=== PATIENT | male | born 1945 | race Caucasian/White ===

== ENCOUNTER 2016-07-27 14:19 | Emergency (ER) | payer MEDICARE, MEDICAID ==
[~2016-07-27 14:19] MED LIST: ASPI325T PO; ASPI81TA3 OR; ATEN25TA PO; ATEN50TA2 OR; CRES40TA OR; CRES40TA PO; INSUDET SC; INSUH10VL SC; INSUHUMDS SC; INSULADS SC; INSULANT SC; INSULIN 70/30 INJ; KEFL500C7 PO; LEVO750T33 PO; LYRI150C OR; LYRI150C PO; NTG SL; OXYC10TA12 OR; PERC2.5T PO; PERCOCET FT; PLAV75TA2 OR; PLAV75TA38 PO; PRIL40CA PO; VARE1TA OR
[2016-07-27 15:47] LABS: BASO # 0.1 K/mm3 (0.0-0.2); BASO % 1.1 % (0.0-1.0); EOS # 0.5 K/mm3 (0.0-0.50); EOS % 5.4 % (0.0-3.0); LARGE UNSTAINED CELL # 0.3 K/mm3 (0.0-0.4); LARGE UNSTAINED CELL % 3.1 % (0.0-4.0); LYMPH # 0.8 K/mm3 (1.5-4.5); LYMPH % 6.7 % (24.0-44.0); MEAN CORPUSCULAR HEMOGLOBIN 28.7 pg (27.0-33.0); MEAN CORPUSCULAR HGB CONC 32.6 g/dl (32.0-36.5); MONO # 0.8 K/mm3 (0.0-0.8); NEUTROPHILS # 6.3 K/mm3 (1.8-7.7); NEUTROPHILS % 74.7 % (36.0-66.0); PLATELET COUNT, AUTOMATED 185 k/mm3 (150-450); RED CELL DISTRIBUTION WIDTH 13.2 % (11.5-14.5); WHITE BLOOD COUNT 8.5 K/mm3 (4.0-10.0)
--- NOTE | 2016-07-27 15:53 | REP ---
Clinical: Acute shortness of breath . Comparison: 04/14/2016 . Findings: The mediastinum and cardiac silhouette are stable. Prior sternotomy and pacemaker are again appreciated. The lung ramos demonstrate stable changes without acute consolidation, effusion, or pneumothorax. Skeletal structures are intact. Impression: No acute cardiopulmonary process appreciated. Signed by Erwin Rodriguez MD 07/27/2016 03:45 P
[2016-07-27] MEDS ORDERED: OSELTAMIVIR PHOSPHATE 75 MG CAP (TAMIFLU) As Ordered ONE (16:34)
[2016-07-27] MEDS ORDERED: IPRATROPIUM 0.5MG/ALBUTEROL 2.5MG INH SOL UD 3ML (DUONEB)(J7620) As Ordered ONE (16:36)
[2016-07-27 16:53] LABS: ANION GAP 6 MEQ/L (8-16); BLOOD UREA NITROGEN 45 MG/DL (7-18); CALCIUM LEVEL 8.4 MG/DL (8.8-10.2); CARBON DIOXIDE LEVEL 31 MEQ/L (21-32); CHLORIDE LEVEL 97 MEQ/L (98-107); CREATININE FOR GFR 2.18 MG/DL (0.70-1.30); GLUCOSE, FASTING 352 MG/DL (83-110); POTASSIUM SERUM 4.9 MEQ/L (3.5-5.1); SODIUM LEVEL 134 MEQ/L (136-145)
[2016-07-27] MEDS ORDERED: predniSONE 20 MG TAB As Ordered ONE (18:46)
--- NOTE | 2016-07-27 19:29 | EDDOCDS ---
Physician Documentation [facility] Name: Aaron Drake Age: 70 yrs Sex: Male : 1945 Arrival Date: 07/27/2016 Time: 14:19 Bed 5 Private MD: Iliana Barragan Disposition: 07/27/16 19:03 Discharged to Home/Self Care. Impression: Influenza due to identified novel influenza A virus. - Condition is Stable. - Discharge Instructions: Influenza Adult, How to Use a Nebulizer. - Prescriptions for Tamiflu 75 mg Oral Capsule - take 1 capsule by ORAL route every 12 hours for 5 days; 10 capsule. Albuterol Sulfate 2.5 mg /3 mL (0.083 %) Inhalation Solution for Nebulization - inhale 1 unit by NEBULIZATION route 4 times per day As needed; 1 box. Home Nebulizer - Dx: (wheezing/influenza). Duration: 3 months). Prednisone 20 mg Oral Tablet - take 2 tablet by ORAL route once daily for 5 days; 10 tablet. - Medication Reconciliation, Local Pharmacy Hours form. - Follow up: Emergency Department; When: Tomorrow; Reason: Recheck today's complaints. - Problem is new. - Symptoms have improved. Historical: - Allergies: turkey; - Home Meds: 1. Zithromax 250 mg Oral tab 1 tab once daily 2. aspirin 325 mg Oral tab 1 tab once daily 3. furosemide 40 mg Oral tab 1 tab once daily 4. Lyrica 150mg Oral 2 times per day 5. metoprolol succinate 50 mg Tb24 1 tab once daily 6. Percocet 5-325 mg Oral tab 2 tabs every 4-6 hours 7. Plavix 75 mg Oral tab 1 tab once daily 8. potassium chloride 10 mEq Oral cpER 1 cap once daily - PMHx: Diabetes - IDDM: uncontrolled; Hypercholesterolemia; [place]; - PSHx: Stents, Coronary; pacemaker/defibrillator insertion; fem/pop bypass bilaterally; CABG; - Social history: Smoking status: Patient states former smoker of tobacco. No barriers to communication noted, The patient speaks fluent Yi, Speaks appropriately for age. - Family history: Not pertinent. - : The pt / caregiver states he / she is on anticoagulants: Plavix. Home medication list is obtained from the patient. - Exposure Risk Screening:: None identified. Vital Signs: 01/14 14:20 BP 169 / 73; Pulse 82; Resp 18 S; Temp 97.7(O); Pulse Ox 94% on R/A; Weight 90.72 kg / dd6 200 lbs (R); Height 5 ft. 6 in. (167.64 cm) (R); 15:19 BP 175 / 77 (auto/); ck1 15:20 Pulse 82 MON; Pulse Ox 94% ; ck1 17:49 BP 126 / 77 (auto/); ck1 17:49 BP 126 / 77 (auto/); ck1 17:50 Pulse 94 MON; Pulse Ox 96% ; ck1 17:50 Pulse 94 MON; Pulse Ox 96% ; ck1 18:17 BP 140 / 65; Pulse 90; Resp 18; Temp 98.6(O); Pulse Ox 94% on 2 lpm NC; Pain 7/10; ck1 19:26 BP 140 / 63; Pulse 94; Resp 18; Temp 99.1(TE); Pulse Ox 94% on R/A; Pain 0/10; nn1 14:20 Body Mass Index 32.28 (90.72 kg, 167.64 cm) dd6 MDM: 15:02 -Blood Culture (Adults Only), peripheral from different site, or from device/port/PICC sd1 etc. if present ordered. 15:02 [employer] Maker/Pulse Ox/q 15 min VS ordered. sd1 15:02 IV Saline Lock ordered. sd1 15:02 Oxygen at 4L/Min NC or Home dosage ordered. sd1 15:02 Rhythm Strip to chart ordered. sd1 15:02 B-Type Natiuretic Peptide Ordered. EDMS 15:02 Basic Metabolic Profile Ordered. EDMS 15:02 CBC with Diff Ordered. EDMS 15:02 Cardiac Injury Profile Ordered. EDMS 15:02 Troponin Ordered. EDMS 15:02 -Blood Culture Ordered. EDMS 15:03 Chest, 1 View Ordered. EDMS 15:03 ECG WITH READING ER PHYS+CARDIAG ordered. EDMS 15:08 NS 0.9% 1000 ml IV at 150 mL/hr continuous ordered. sd1 15:08 -Blood Culture (Adults Only), peripheral from different site, or from device/port/PICC deg etc. if present complete. 15:09 Obtain sample by nasopharyngeal swab ordered. sd1 15:09 BLOOD CULTURES Ordered. EDMS 15:09 -Influenza A&B Rapid Antigen - Nose Ordered. EDMS 15:46 Financial registration complete. [email or web address] 15:46 [facility] Payment Agreement was scanned into [employer] and attached to record. ks16 15:59 CBC with Diff Reviewed. sd1 15:59 Chest, 1 View Reviewed. sd1 16:12 Albuterol-Ipratropium 3 ml Inhalation once ordered. sd1 16:31 B-Type Natiuretic Peptide Reviewed. sd1 16:31 -Influenza A&B Rapid Antigen - Nose Reviewed. sd1 16:32 Oseltamivir 75 mg PO once ordered. sd1 16:43 REGULAR+DIET ordered. EDMS 17:07 Basic Metabolic Profile Reviewed. sd1 17:07 Cardiac Injury Profile Reviewed. sd1 17:07 Troponin Reviewed. sd1 18:30 Misc. Nursing Order ordered. sd1 18:43 predniSONE 40 mg PO once; administer with food or milk ordered. sd1 Administered Medications: 15:36 Drug: NS 0.9% 1000 ml [sodium chloride 0.9 % intravenous solution] Route: IV; Rate: 150 ttb mL/hr; Site: right antecubital; 16:37 Drug: Albuterol-Ipratropium 3 ml [ipratropium-albuterol 0.5 mg-3 mg(2.5 mg base)/3 mL jh6 nebulization soln (3 mL)] Route: Inhalation; 16:38 Drug: Oseltamivir 75 mg [oseltamivir 75 mg capsule (1 caps)] Route: PO; ck1 18:53 Drug: predniSONE 40 mg [prednisone 20 mg tablet (2 tabs)] Route: PO; ck1 Signatures: Dispatcher [facility] Deloris Garcia MD MD sd1 Angely Galarza, Web Support Engineer Unit deg Justin Rm RN RN Radhika PerezRN RN ck1 Bonnie Gutiérrez RN RN nn1 Angelina Lewis, Reg Reg ks16 Ander Moreira jh6 Shereen Smith RN ttb The chart was reviewed and I authenticate all verbal orders and agree with the evaluation and treatment provided.Attachments: 15:46 [facility] Payment Agreement ks16 MTDD
--- NOTE | 2016-07-27 19:29 | EDDOCDS ---
Nurse's Notes [facility] Name: Aaron Drake Age: 70 yrs Sex: Male : 1945 Arrival Date: 07/27/2016 Time: 14:19 Bed 5 Private MD: Iliana Barragan Diagnosis: Influenza due to identified novel influenza A virus Presentation: 07/27 14:46 Presenting complaint: Patient states: was seen by PMD on 'ed with pneumonia bcj and started on Zithromax for same. today feels worse - no energy. having a hard time breathing. coughing up thick green yellow sputum. no temp at home. not eating / drinking well. Adult Sepsis Screening: The patient does not have new or worsening altered mentation. Patient's respiratory rate is less than 22. Systolic blood pressure is greater than 100. Patient has a qSOFA score of 0- Negative Sepsis Screen. Suicide/Homicide risk assessment- the patient denies having any suicidal and/or homicidal ideations and does not present with any other emotional, behavioral or mental health complaints. Status: Patient is not a service cleaner or dependent. Transition of care: patient was not received from another setting of care. 14:46 Acuity: AMY Level 3 [facility] 14:46 Method Of Arrival: Walkin/Carried/Asstd [facility] Triage Assessment: 14:52 General: Appears ill, Behavior is cooperative. Pain: Location: chest Pain currently is bcj 8 out of 10 on a pain scale. Historical: - Allergies: turkey; - Home Meds: 1. Zithromax 250 mg Oral tab 1 tab once daily 2. aspirin 325 mg Oral tab 1 tab once daily 3. furosemide 40 mg Oral tab 1 tab once daily 4. Lyrica 150mg Oral 2 times per day 5. metoprolol succinate 50 mg Tb24 1 tab once daily 6. Percocet 5-325 mg Oral tab 2 tabs every 4-6 hours 7. Plavix 75 mg Oral tab 1 tab once daily 8. potassium chloride 10 mEq Oral cpER 1 cap once daily - PMHx: Diabetes - IDDM: uncontrolled; Hypercholesterolemia; [place]; - PSHx: Stents, Coronary; pacemaker/defibrillator insertion; fem/pop bypass bilaterally; CABG; - Social history: Smoking status: Patient states former smoker of tobacco. No barriers to communication noted, The patient speaks fluent Mexican, Speaks appropriately for age. - Family history: Not pertinent. - : The pt / caregiver states he / she is on anticoagulants: Plavix. Home medication list is obtained from the patient. - Exposure Risk Screening:: None identified. Screenin:55 Screening information is obtained from the patient. Fall risk: At risk due to weakness. ck1 The following interventions are performed due to a positive Fall Risk Screen: Fall Risk is added to Special Handling on the patient Summary Screen. A Fall Risk Bracelet was applied to the patient. Side Rails are placed in the up position. A Call Johnson is given with instruction to call for help when getting out of bed. Fall Alert bracelet is placed on the patient. Assistance ADL's: requires no assistance with activities of daily living. Abuse/DV Screen: The patient / caregiver reports he/she is: not in a situation that causes fear, pain or injury. Nutritional screening: No deficits noted. home support is adequate. 19:28 Advance Directives: There is no active DNR order. nn1 Assessment: 15:30 General: Appears in no apparent distress, comfortable, Behavior is appropriate for age, ttb cooperative, pleasant, quiet. General: IV started. Daughter at bedside. Pt resting on stretcher. Primary RN aware.. Neurological: Level of Consciousness is awake, alert. Respiratory: Airway is patent Respiratory effort is even, unlabored, Reports cough that is persistent. 15:56 General: Appears in no apparent distress, comfortable, Behavior is appropriate for age, ck1 cooperative. Pain: Denies pain. Neurological: Level of Consciousness is awake, alert, Oriented to person, place, time. Cardiovascular: Rhythm is sinus rhythm. Respiratory: Respiratory effort is unlabored, Respiratory pattern is regular, symmetrical, Breath sounds with wheezes bilaterally. GI: No deficits noted. Derm: Skin is pink, warm & dry. 16:00 Reassessment: Patient appears in no apparent distress at this time. General: Appears in ck1 no apparent distress, comfortable, to be sleeping. Pain: Location: chest Aggravated by coughing. Neurological: Level of Consciousness is awake, alert, obeys commands. Cardiovascular: Rhythm is sinus rhythm. Respiratory: Respiratory effort is unlabored, Respiratory pattern is regular, symmetrical. Derm: Skin is pink, warm & dry. 17:00 Reassessment: Patient appears in no apparent distress at this time. ck1 18:18 General: Appears in no apparent distress, comfortable, to be sleeping. Behavior is ck1 appropriate for age, cooperative. Pain: Location: chest Pain currently is 7 out of 10 on a pain scale. Aggravated by cough. Neurological: Level of Consciousness is awake, alert, obeys commands, Oriented to person, place, time. Cardiovascular: Rhythm is. Respiratory: Respiratory effort is unlabored, Respiratory pattern is regular, symmetrical. GI: No deficits noted. Derm: Skin is pink, warm & dry. 18:44 General: Patient ambulated approximately 75 feet on room air. Gait steady, pulse ox ck1 92%-94%. patient tolerated well. Dr. Sanz aware. 19:27 General: Appears in no apparent distress, comfortable, Behavior is appropriate for age, nn1 cooperative. Pain: Denies pain. Neurological: Level of Consciousness is awake, alert, obeys commands, Oriented to person, place, time. Respiratory: Airway is patent Respiratory effort is even, unlabored, Respiratory pattern is regular. Vital Signs: 14:20 BP 169 / 73; Pulse 82; Resp 18 S; Temp 97.7(O); Pulse Ox 94% on R/A; Weight 90.72 kg dd6 (R); Height 5 ft. 6 in. (167.64 cm) (R); 15:19 BP 175 / 77 (auto/); ck1 15:20 Pulse 82 MON; Pulse Ox 94% ; ck1 17:49 BP 126 / 77 (auto/); ck1 17:49 BP 126 / 77 (auto/); ck1 17:50 Pulse 94 MON; Pulse Ox 96% ; ck1 17:50 Pulse 94 MON; Pulse Ox 96% ; ck1 18:17 BP 140 / 65; Pulse 90; Resp 18; Temp 98.6(O); Pulse Ox 94% on 2 lpm NC; Pain 7/10; ck1 19:26 BP 140 / 63; Pulse 94; Resp 18; Temp 99.1(TE); Pulse Ox 94% on R/A; Pain 0/10; nn1 14:20 Body Mass Index 32.28 (90.72 kg, 167.64 cm) dd6 Vitals: 14:20 Log In Time: July 27, 2016 at 14:18. dd6 ED Course: 14:20 Patient visited by Adal Chen ANNETTE. dd6 14:20 Iliana Barragan is Private Physician. dd6 14:20 Patient moved to Waiting dd6 14:21 Patient moved to Pre RCE dd6 14:50 Triage Initiated bcj 14:53 Patient visited by Justin Rm, RN. bcj 14:54 Radhika Saeed,RN is Primary Nurse. bcj 14:54 Patient moved to 5 bcj 15:03 Deloris Garcia MD is Attending Physician. sd1 15:03 Patient visited by Deloris Garcia MD. sd1 15:25 Patient visited by Dago Ortega PCA. jrd 15:25 EKG done. (by ED staff). Reviewed by Deloris Garcia MD. jrd 15:36 Troponin Sent. ttb 15:36 Cardiac Injury Profile Sent. ttb 15:36 CBC with Diff Sent. ttb 15:36 Basic Metabolic Profile Sent. ttb 15:36 B-Type Natiuretic Peptide Sent. ttb 15:36 -Blood Culture Sent. ttb 15:36 Inserted peripheral IV: 20gauge IV in right antecubital area and blood collected. ttb Patient tolerated the procedure well. Labs drawn. (by ED staff). Labs/Blood culture drawn. 15:38 Patient visited by Shereen Smith RN. ttb 15:46 [facility] Payment Agreement was scanned into [facility] and attached to record. ks16 15:54 Chest, 1 View Returned. EDMS 15:55 Patient visited by Radhika Saeed,[place]. ck1 15:55 BLOOD CULTURES Sent. ck1 15:55 -Influenza A&B Rapid Antigen - Nose Sent. ck1 15:56 The patient / caregiver is instructed regarding the plan of care and ED course. ck1 16:18 Patient visited by Radhika Saeed,[place]. ck1 16:38 Patient visited by Radhika Saeed,[place]. ck1 17:30 Patient visited by Radhika Saeed,[place]. ck1 17:47 Patient visited by Radhika Saeed,RN. ck1 17:48 Patient visited by Radhika Saeed,RN. ck1 17:59 Patient visited by Radhika Saeed,[place]. ck1 18:19 Patient visited by Radhika Saeed,RN. ck1 18:44 Patient visited by Radhika Saeed,[place]. ck1 18:54 Primary Nurse role handed off by Radhika Saeed,RN ck1 19:28 No procedures done that require assistance. nn1 Administered Medications: 15:36 Drug: NS 0.9% 1000 ml [sodium chloride 0.9 % intravenous solution] Route: IV; Rate: 150 ttb mL/hr; Site: right antecubital; 16:37 Drug: Albuterol-Ipratropium 3 ml [ipratropium-albuterol 0.5 mg-3 mg(2.5 mg base)/3 mL jh6 nebulization soln (3 mL)] Route: Inhalation; 16:38 Drug: Oseltamivir 75 mg [oseltamivir 75 mg capsule (1 caps)] Route: PO; ck1 18:53 Drug: predniSONE 40 mg [prednisone 20 mg tablet (2 tabs)] Route: PO; ck1 RT: 16:37 Initial Med Neb Given as ordered Patient was instructed and evaluated on procedure jh6 Patient tolerated procedure well without adverse effect. Respiratory: Airway is patent Respiratory effort is even, unlabored, Respiratory pattern is regular symmetrical, Breath sounds are coarse in left posterior upper lobe, right posterior upper lobe, left posterior lower lobe, right posterior middle lobe and right posterior lower lobe Breath sounds are diminished in left posterior upper lobe, right posterior upper lobe, left posterior lower lobe, right posterior middle lobe and right posterior lower lobe Breath sounds with wheezes in left posterior upper lobe, right posterior upper lobe, left posterior lower lobe, right posterior middle lobe and right posterior lower lobe at expiration. 16:45 Respiratory: Airway is patent Respiratory effort is even, unlabored, Respiratory jh6 pattern is regular symmetrical, Breath sounds are coarse in left posterior upper lobe, right posterior upper lobe, left posterior lower lobe, right posterior middle lobe and right posterior lower lobe Breath sounds with crackles in left posterior upper lobe, right posterior upper lobe, left posterior lower lobe, right posterior middle lobe and right posterior lower lobe Breath sounds are diminished in left posterior lower lobe and right posterior lower lobe. Order Results: Lab Order: B-Type Natiuretic Peptide; SPEC'M 07/27/16 15:32 Test: BRAIN NATRIURETIC PEPTIDE; Value: 747; Range: <100; Abnormal: Above high normal; Units: PG/ML; Status: F Lab Order: Basic Metabolic Profile; SPEC07/27/16 16:08 Test: GLUCOSE, FASTING; Value: 352; Range: 83-110; Abnormal: Above high normal; Units: MG/DL; Status: F Test: BLOOD UREA NITROGEN; Value: 45; Range: 7-18; Abnormal: Above high normal; Units: MG/DL; Status: F Test: CREATININE FOR GFR; Value: 2.18; Range: 0.70-1.30; Abnormal: Above high normal; Units: MG/DL; Status: F Test: GLOMERULAR FILTRATION RATE; Value: 32.0; Range: >42; Abnormal: Below low normal; Status: F Test: SODIUM LEVEL; Value: 134; Range: 136-145; Abnormal: Below low normal; Units: MEQ/L; Status: F Test: POTASSIUM SERUM; Value: 4.9; Range: 3.5-5.1; Units: MEQ/L; Status: F Test: CHLORIDE LEVEL; Value: 97; Range: 98-107; Abnormal: Below low normal; Units: MEQ/L; Status: F Test: CARBON DIOXIDE LEVEL; Value: 31; Range: 21-32; Units: MEQ/L; Status: F Test: ANION GAP; Value: 6; Range: 8-16; Abnormal: Below low normal; Units: MEQ/L; Status: F Test: CALCIUM LEVEL; Value: 8.4; Range: 8.8-10.2; Abnormal: Below low normal; Units: MG/DL; Status: F Test Note: ; Units are mL/min/1.73 m2 Chronic Kidney Disease Staging per NKF: Stage I & II GFR >=60 Normal to Mildly Decreased Stage III GFR 30-59 Moderately Decreased Stage IV GFR 15-29 Severely Decreased Stage V GFR <15 Very Little GFR Left ESRD GFR <15 on LENS BLOCKER Lab Order: CBC with Diff; SPEC07/27/16 15:32 Test: WHITE BLOOD COUNT; Value: 8.5; Range: 4.0-10.0; Units: K/mm3; Status: F Test: RED BLOOD COUNT; Value: 3.68; Range: 4.30-6.10; Abnormal: Below low normal; Units: M/mm3; Status: F Test: HEMOGLOBIN; Value: 10.5; Range: 14.0-18.0; Abnormal: Below low normal; Units: g/dl; Status: F Test: HEMATOCRIT; Value: 32.4; Range: 42.0-52.0; Abnormal: Below low normal; Units: %; Status: F Test: MEAN CORPUSCULAR VOLUME; Value: 88.0; Range: 80.0-96.0; Units: fl; Status: F Test: MEAN CORPUSCULAR HEMOGLOBIN; Value: 28.7; Range: 27.0-33.0; Units: pg; Status: F Test: MEAN CORPUSCULAR HGB CONC; Value: 32.6; Range: 32.0-36.5; Units: g/dl; Status: F Test: RED CELL DISTRIBUTION WIDTH; Value: 13.2; Range: 11.5-14.5; Units: %; Status: F Test: PLATELET COUNT, AUTOMATED; Value: 185; Range: 150-450; Units: k/mm3; Status: F Test: NEUTROPHILS %; Value: 74.7; Range: 36.0-66.0; Abnormal: Above high normal; Units: %; Status: F Test: LYMPH %; Value: 6.7; Range: 24.0-44.0; Abnormal: Below low normal; Units: %; Status: F Test: MONO %; Value: 9.0; Range: 0.0-5.0; Abnormal: Above high normal; Units: %; Status: F Test: EOS %; Value: 5.4; Range: 0.0-3.0; Abnormal: Above high normal; Units: %; Status: F Test: BASO %; Value: 1.1; Range: 0.0-1.0; Abnormal: Above high normal; Units: %; Status: F Test: LARGE UNSTAINED CELL %; Value: 3.1; Range: 0.0-4.0; Units: %; Status: F Test: NEUTROPHILS #; Value: 6.3; Range: 1.8-7.7; Units: K/mm3; Status: F Test: LYMPH #; Value: 0.8; Range: 1.5-4.5; Abnormal: Below low normal; Units: K/mm3; Status: F Test: MONO #; Value: 0.8; Range: 0.0-0.8; Units: K/mm3; Status: F Test: EOS #; Value: 0.5; Range: 0.0-0.50; Units: K/mm3; Status: F Test: BASO #; Value: 0.1; Range: 0.0-0.2; Units: K/mm3; Status: F Test: LARGE UNSTAINED CELL #; Value: 0.3; Range: 0.0-0.4; Units: K/mm3; Status: F Lab Order: Cardiac Injury Profile; SPEC'M 07/27/16 16:08 Test: CPK CREATINE PHOSPHOKINASE; Value: 280; Range: 39-308; Units: U/L; Status: F Test: CK-MB VALUE MASS; Value: 3.2; Range: 0.0-3.6; Units: NG/ML; Status: F Test: MB/CK RELATIVE INDEX; Value: 1.14; Range: < OR =4; Status: F Test Note: ; DIAGNOSIS CRITERIA MMB ng/ml Relative Index (RI) NON-AMI < or = 5 N/A B[place]ONE > 5 < or = 4 AMI > 5 > 4 Lab Order: Troponin; SPEC'M 07/27/16 16:08 Test: TROPONIN I; Value: < 0.02; Range: < 0.10; Units: NG/ML; Status: F Test Note: ; Troponin I Reference Interval for [employer] LOCI: 99th Percentile= 0.00-0.045 ng/ml Risk Stratification: <= 0.10 ng/ml Decreased Risk for Adverse Clinical Events. 0.10-1.50 ng/ml Increased Risk for Adverse Clinical Events. Evaluation of additional criterion and/or repeat testing in 2-6 hours is suggested to rule out myocardial damage. >= 1.50 ng/ml Indicative of Myocardial Injury. Lab Order: -Influenza A&B Rapid Antigen - Nose; SPEC'M 07/27/16 15:54 Test: INFLUENZA A RAPID SCR by ICA; Value: INFLUENZA A RESULTS POSITIVE; Abnormal: Abnormal; Status: F Test: INFLUENZA A RAPID SCR by ICA; Value: Comments:; Status: F Test: INFLUENZA B RAPID SCR by ICA; Value: INFLUENZA B RESULTS NEGATIVE; Status: F Test Note: ; The Influenza test is a direct rapid immunoassay for the qualitative detection of Influenza viral antigen. Cell culture (Viral Culture) testing should be considered to confirm NEGATIVE results and to assist in detecting other viruses that can provide similar clinical symptoms. Please contact the lab within 24 hours ([phone]) if confirmatory testing is desired. Radiology Order: Chest, 1 View Test: Chest, 1 View REASON FOR EXAMINATION: Shortness of Breath; Clinical: Acute shortness of breath .; ; Comparison: 04/14/2016 .; ; Findings:; The mediastinum and cardiac silhouette are stable. Prior sternotomy and; pacemaker are again appreciated. The lung ramos demonstrate stable changes; without acute consolidation, effusion, or pneumothorax. Skeletal structures are; intact.; ; Impression:; No acute cardiopulmonary process appreciated.; ; ; Signed by; Erwin Rodriguez MD 07/27/2016 03:45 P; Outcome: 19:03 Discharge ordered by Provider. sd1 19:27 Discharge Assessment: Patient awake, alert and oriented x 3. No cognitive and/or nn1 functional deficits noted. Patient verbalized understanding of disposition instructions. patient administered narcotics - no. 19:28 The following High Risk Discharge criteria are identified: None. Discharged to home nn1 ambulatory, with family. Condition: stable. No special radiology studies were completed. Property :Personal belongings accompany Pt. 19:28 Patient left the ED. nn1 Signatures: Dispatcher [employer] Deloris Jensen MD MD sd1 Justin Rm, RN Radhika Aaron,REG[place] RN ck1 Adal Chen, FUR TRIMMING MACHINE OPERATOR FUR TRIMMING MACHINE OPERATOR 6 Ander Moreira Shereen Garcia RN RN ttb Donoghue, Joseph, FUR TRIMMING MACHINE OPERATOR FUR TRIMMING MACHINE OPERATOR Bonnie Lou RN RN nn1 Angelina Lewis, Reg Reg ks16 MTDD
--- NOTE | 2016-07-28 07:30 | ECGEPIP ---
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
--- NOTE | 2016-07-29 20:29 | EDDOCDS ---
Physician Documentation [facility] Name: Aaron Drake Age: 70 yrs Sex: Male : 1945 Arrival Date: 07/27/2016 Time: 14:19 Bed 5 Private MD: Iliana Barragan Disposition: 07/27/16 19:03 Discharged to Home/Self Care. Impression: Influenza due to identified novel influenza A virus. - Condition is Stable. - Discharge Instructions: Influenza Adult, How to Use a Nebulizer. - Prescriptions for Tamiflu 75 mg Oral Capsule - take 1 capsule by ORAL route every 12 hours for 5 days; 10 capsule. Albuterol Sulfate 2.5 mg /3 mL (0.083 %) Inhalation Solution for Nebulization - inhale 1 unit by NEBULIZATION route 4 times per day As needed; 1 box. Home Nebulizer - Dx: (wheezing/influenza). Duration: 3 months). Prednisone 20 mg Oral Tablet - take 2 tablet by ORAL route once daily for 5 days; 10 tablet. - Medication Reconciliation, Local Pharmacy Hours form. - Follow up: Emergency Department; When: Tomorrow; Reason: Recheck today's complaints. - Problem is new. - Symptoms have improved. Historical: - Allergies: turkey; - Home Meds: 1. Zithromax 250 mg Oral tab 1 tab once daily 2. aspirin 325 mg Oral tab 1 tab once daily 3. furosemide 40 mg Oral tab 1 tab once daily 4. Lyrica 150mg Oral 2 times per day 5. metoprolol succinate 50 mg Tb24 1 tab once daily 6. Percocet 5-325 mg Oral tab 2 tabs every 4-6 hours 7. Plavix 75 mg Oral tab 1 tab once daily 8. potassium chloride 10 mEq Oral cpER 1 cap once daily - PMHx: Diabetes - IDDM: uncontrolled; Hypercholesterolemia; [place]; - PSHx: Stents, Coronary; pacemaker/defibrillator insertion; fem/pop bypass bilaterally; CABG; - Social history: Smoking status: Patient states former smoker of tobacco. No barriers to communication noted, The patient speaks fluent Armenian, Speaks appropriately for age. - Family history: Not pertinent. - : The pt / caregiver states he / she is on anticoagulants: Plavix. Home medication list is obtained from the patient. - Exposure Risk Screening:: None identified. Vital Signs: 01/14 14:20 BP 169 / 73; Pulse 82; Resp 18 S; Temp 97.7(O); Pulse Ox 94% on R/A; Weight 90.72 kg / dd6 200 lbs (R); Height 5 ft. 6 in. (167.64 cm) (R); 15:19 BP 175 / 77 (auto/); ck1 15:20 Pulse 82 MON; Pulse Ox 94% ; ck1 17:49 BP 126 / 77 (auto/); ck1 17:49 BP 126 / 77 (auto/); ck1 17:50 Pulse 94 MON; Pulse Ox 96% ; ck1 17:50 Pulse 94 MON; Pulse Ox 96% ; ck1 18:17 BP 140 / 65; Pulse 90; Resp 18; Temp 98.6(O); Pulse Ox 94% on 2 lpm NC; Pain 7/10; ck1 19:26 BP 140 / 63; Pulse 94; Resp 18; Temp 99.1(TE); Pulse Ox 94% on R/A; Pain 0/10; nn1 14:20 Body Mass Index 32.28 (90.72 kg, 167.64 cm) dd6 MDM: 15:02 -Blood Culture (Adults Only), peripheral from different site, or from device/port/PICC sd1 etc. if present ordered. 15:02 Adjunct Phlebotomy Instructor/Pulse Ox/q 15 min VS ordered. sd1 15:02 IV Saline Lock ordered. sd1 15:02 Oxygen at 4L/Min NC or Home dosage ordered. sd1 15:02 Rhythm Strip to chart ordered. sd1 15:02 B-Type Natiuretic Peptide Ordered. EDMS 15:02 Basic Metabolic Profile Ordered. EDMS 15:02 CBC with Diff Ordered. EDMS 15:02 Cardiac Injury Profile Ordered. EDMS 15:02 Troponin Ordered. EDMS 15:02 -Blood Culture Ordered. EDMS 15:03 Chest, 1 View Ordered. EDMS 15:03 ECG WITH READING ER PHYS+CARDIAG ordered. EDMS 15:08 NS 0.9% 1000 ml IV at 150 mL/hr continuous ordered. sd1 15:08 -Blood Culture (Adults Only), peripheral from different site, or from device/port/PICC deg etc. if present complete. 15:09 Obtain sample by nasopharyngeal swab ordered. sd1 15:09 BLOOD CULTURES Ordered. EDMS 15:09 -Influenza A&B Rapid Antigen - Nose Ordered. EDMS 15:46 Financial registration complete. [email or web address] 15:46 [facility] Payment Agreement was scanned into [employer] and attached to record. [email or web address] 15:59 CBC with Diff Reviewed. sd1 15:59 Chest, 1 View Reviewed. sd1 16:12 Albuterol-Ipratropium 3 ml Inhalation once ordered. sd1 16:31 B-Type Natiuretic Peptide Reviewed. sd1 16:31 -Influenza A&B Rapid Antigen - Nose Reviewed. sd1 16:32 Oseltamivir 75 mg PO once ordered. sd1 16:43 REGULAR+DIET ordered. EDMS 17:07 Basic Metabolic Profile Reviewed. sd1 17:07 Cardiac Injury Profile Reviewed. sd1 17:07 Troponin Reviewed. sd1 18:30 Misc. Nursing Order ordered. sd1 18:43 predniSONE 40 mg PO once; administer with food or milk ordered. sd1 07/29 13:56 T-Sheet-- Draft Copy was scanned into [employer] and attached to record. 13:56 ECG/EKG was scanned into [employer] and attached to record. gb Administered Medications: 07/27 15:36 Drug: NS 0.9% 1000 ml [sodium chloride 0.9 % intravenous solution] Route: IV; Rate: 150 ttb mL/hr; Site: right antecubital; 16:37 Drug: Albuterol-Ipratropium 3 ml [ipratropium-albuterol 0.5 mg-3 mg(2.5 mg base)/3 mL 6 nebulization soln (3 mL)] Route: Inhalation; 16:38 Drug: Oseltamivir 75 mg [oseltamivir 75 mg capsule (1 caps)] Route: PO; ck1 18:53 Drug: predniSONE 40 mg [prednisone 20 mg tablet (2 tabs)] Route: PO; ck1 Signatures: Dispatcher [employer] EDCT Deloris Garcia MD MD sd1 Angely Galarza, Senior Net Architect Unit deg Justin Rm RN RN Priscilla Ambriz, Reg Reg gb Radhika Saeed RN RN ck1 Bonnie Gutiérrez RN RN nn1 Angelina Lewis, Reg Reg ks16 Ander Moreira jh6 Shereen Smith RN ttb The chart was reviewed and I authenticate all verbal orders and agree with the evaluation and treatment provided.Attachments: 15:46 [facility] [place] [email or web address] 07/29 13:56 T-Sheet-- Draft Copy gb 13:56 ECG/EKG gb Chart Complete MTDD
--- NOTE | 2016-07-29 20:29 | EDDOCDS ---
Nurse's Notes [facility] Name: Frank Drake Age: 70 yrs Sex: Male : 1945 Arrival Date: 07/27/2016 Time: 14:19 Bed 5 Private MD: Iliana Barragan Diagnosis: Influenza due to identified novel influenza A virus Presentation: 07/27 14:46 Presenting complaint: Patient states: was seen by PMD on 'ed with pneumonia bcj and started on Zithromax for same. today feels worse - no energy. having a hard time breathing. coughing up thick green yellow sputum. no temp at home. not eating / drinking well. Adult Sepsis Screening: The patient does not have new or worsening altered mentation. Patient's respiratory rate is less than 22. Systolic blood pressure is greater than 100. Patient has a qSOFA score of 0- Negative Sepsis Screen. Suicide/Homicide risk assessment- the patient denies having any suicidal and/or homicidal ideations and does not present with any other emotional, behavioral or mental health complaints. Status: Patient is not a community services manager or dependent. Transition of care: patient was not received from another setting of care. 14:46 Acuity: AMY Level 3 [facility] 14:46 Method Of Arrival: Walkin/Carried/Asstd [facility] Triage Assessment: 14:52 General: Appears ill, Behavior is cooperative. Pain: Location: chest Pain currently is bcj 8 out of 10 on a pain scale. Historical: - Allergies: turkey; - Home Meds: 1. Zithromax 250 mg Oral tab 1 tab once daily 2. aspirin 325 mg Oral tab 1 tab once daily 3. furosemide 40 mg Oral tab 1 tab once daily 4. Lyrica 150mg Oral 2 times per day 5. metoprolol succinate 50 mg Tb24 1 tab once daily 6. Percocet 5-325 mg Oral tab 2 tabs every 4-6 hours 7. Plavix 75 mg Oral tab 1 tab once daily 8. potassium chloride 10 mEq Oral cpER 1 cap once daily - PMHx: Diabetes - IDDM: uncontrolled; Hypercholesterolemia; [place]; - PSHx: Stents, Coronary; pacemaker/defibrillator insertion; fem/pop bypass bilaterally; CABG; - Social history: Smoking status: Patient states former smoker of tobacco. No barriers to communication noted, The patient speaks fluent Malian, Speaks appropriately for age. - Family history: Not pertinent. - : The pt / caregiver states he / she is on anticoagulants: Plavix. Home medication list is obtained from the patient. - Exposure Risk Screening:: None identified. Screenin:55 Screening information is obtained from the patient. Fall risk: At risk due to weakness. ck1 The following interventions are performed due to a positive Fall Risk Screen: Fall Risk is added to Special Handling on the patient Summary Screen. A Fall Risk Bracelet was applied to the patient. Side Rails are placed in the up position. A Call Johnson is given with instruction to call for help when getting out of bed. Fall Alert bracelet is placed on the patient. Assistance ADL's: requires no assistance with activities of daily living. Abuse/DV Screen: The patient / caregiver reports he/she is: not in a situation that causes fear, pain or injury. Nutritional screening: No deficits noted. home support is adequate. 19:28 Advance Directives: There is no active DNR order. nn1 Assessment: 15:30 General: Appears in no apparent distress, comfortable, Behavior is appropriate for age, ttb cooperative, pleasant, quiet. General: IV started. Daughter at bedside. Pt resting on stretcher. Primary RN aware.. Neurological: Level of Consciousness is awake, alert. Respiratory: Airway is patent Respiratory effort is even, unlabored, Reports cough that is persistent. 15:56 General: Appears in no apparent distress, comfortable, Behavior is appropriate for age, ck1 cooperative. Pain: Denies pain. Neurological: Level of Consciousness is awake, alert, Oriented to person, place, time. Cardiovascular: Rhythm is sinus rhythm. Respiratory: Respiratory effort is unlabored, Respiratory pattern is regular, symmetrical, Breath sounds with wheezes bilaterally. GI: No deficits noted. Derm: Skin is pink, warm & dry. 16:00 Reassessment: Patient appears in no apparent distress at this time. General: Appears in ck1 no apparent distress, comfortable, to be sleeping. Pain: Location: chest Aggravated by coughing. Neurological: Level of Consciousness is awake, alert, obeys commands. Cardiovascular: Rhythm is sinus rhythm. Respiratory: Respiratory effort is unlabored, Respiratory pattern is regular, symmetrical. Derm: Skin is pink, warm & dry. 17:00 Reassessment: Patient appears in no apparent distress at this time. ck1 18:18 General: Appears in no apparent distress, comfortable, to be sleeping. Behavior is ck1 appropriate for age, cooperative. Pain: Location: chest Pain currently is 7 out of 10 on a pain scale. Aggravated by cough. Neurological: Level of Consciousness is awake, alert, obeys commands, Oriented to person, place, time. Cardiovascular: Rhythm is. Respiratory: Respiratory effort is unlabored, Respiratory pattern is regular, symmetrical. GI: No deficits noted. Derm: Skin is pink, warm & dry. 18:44 General: Patient ambulated approximately 75 feet on room air. Gait steady, pulse ox ck1 92%-94%. patient tolerated well. Dr. Sanz aware. 19:27 General: Appears in no apparent distress, comfortable, Behavior is appropriate for age, nn1 cooperative. Pain: Denies pain. Neurological: Level of Consciousness is awake, alert, obeys commands, Oriented to person, place, time. Respiratory: Airway is patent Respiratory effort is even, unlabored, Respiratory pattern is regular. Vital Signs: 14:20 BP 169 / 73; Pulse 82; Resp 18 S; Temp 97.7(O); Pulse Ox 94% on R/A; Weight 90.72 kg dd6 (R); Height 5 ft. 6 in. (167.64 cm) (R); 15:19 BP 175 / 77 (auto/); ck1 15:20 Pulse 82 MON; Pulse Ox 94% ; ck1 17:49 BP 126 / 77 (auto/); ck1 17:49 BP 126 / 77 (auto/); ck1 17:50 Pulse 94 MON; Pulse Ox 96% ; ck1 17:50 Pulse 94 MON; Pulse Ox 96% ; ck1 18:17 BP 140 / 65; Pulse 90; Resp 18; Temp 98.6(O); Pulse Ox 94% on 2 lpm NC; Pain 7/10; ck1 19:26 BP 140 / 63; Pulse 94; Resp 18; Temp 99.1(TE); Pulse Ox 94% on R/A; Pain 0/10; nn1 14:20 Body Mass Index 32.28 (90.72 kg, 167.64 cm) dd6 Vitals: 14:20 Log In Time: July 27, 2016 at 14:18. dd6 ED Course: 14:20 Patient visited by Adal Chen ANNETTE. dd6 14:20 Iliana Barragan is Private Physician. dd6 14:20 Patient moved to Waiting dd6 14:21 Patient moved to Pre RCE dd6 14:50 Triage Initiated bcj 14:53 Patient visited by Justin Rm, RN. bcj 14:54 Radhika Saeed,RN is Primary Nurse. bcj 14:54 Patient moved to 5 bcj 15:03 Deloris Gacria MD is Attending Physician. sd1 15:03 Patient visited by Deloris Garcia MD. sd1 15:25 Patient visited by Dago Ortega PCA. jrd 15:25 EKG done. (by ED staff). Reviewed by Deloris Garcia MD. jrd 15:36 Troponin Sent. ttb 15:36 Cardiac Injury Profile Sent. ttb 15:36 CBC with Diff Sent. ttb 15:36 Basic Metabolic Profile Sent. ttb 15:36 B-Type Natiuretic Peptide Sent. ttb 15:36 -Blood Culture Sent. ttb 15:36 Inserted peripheral IV: 20gauge IV in right antecubital area and blood collected. ttb Patient tolerated the procedure well. Labs drawn. (by ED staff). Labs/Blood culture drawn. 15:38 Patient visited by Shereen Smith RN. ttb 15:46 [facility] Payment Agreement was scanned into [employer] and attached to record. ks16 15:54 Chest, 1 View Returned. EDMS 15:55 Patient visited by Radhika Saeed,[place]. ck1 15:55 BLOOD CULTURES Sent. ck1 15:55 -Influenza A&B Rapid Antigen - Nose Sent. ck1 15:56 The patient / caregiver is instructed regarding the plan of care and ED course. ck1 16:18 Patient visited by Radhika Saeed,[place]. ck1 16:38 Patient visited by Radhika Saeed,[place]. ck1 17:30 Patient visited by Radhika Saeed,[place]. ck1 17:47 Patient visited by Radhika Saeed,RN. ck1 17:48 Patient visited by Radhika Saeed,RN. ck1 17:59 Patient visited by Radhika Saeed,RN. ck1 18:19 Patient visited by Radhika Saeed,RN. ck1 18:44 Patient visited by Radhika Saeed,RN. ck1 18:54 Primary Nurse role handed off by Radhika Saeed,RN ck1 19:28 No procedures done that require assistance. nn1 07/28 07:58 EKG-ADULT Returned. EDMS 07/29 13:56 T-Sheet-- Draft Copy was scanned into [employer] and attached to record. gb 13:56 ECG/EKG was scanned into [employer] and attached to record. gb Administered Medications: 07/27 15:36 Drug: NS 0.9% 1000 ml [sodium chloride 0.9 % intravenous solution] Route: IV; Rate: 150 ttb mL/hr; Site: right antecubital; 16:37 Drug: Albuterol-Ipratropium 3 ml [ipratropium-albuterol 0.5 mg-3 mg(2.5 mg base)/3 mL jh6 nebulization soln (3 mL)] Route: Inhalation; 16:38 Drug: Oseltamivir 75 mg [oseltamivir 75 mg capsule (1 caps)] Route: PO; ck1 18:53 Drug: predniSONE 40 mg [prednisone 20 mg tablet (2 tabs)] Route: PO; ck1 RT: 16:37 Initial Med Neb Given as ordered Patient was instructed and evaluated on procedure jh6 Patient tolerated procedure well without adverse effect. Respiratory: Airway is patent Respiratory effort is even, unlabored, Respiratory pattern is regular symmetrical, Breath sounds are coarse in left posterior upper lobe, right posterior upper lobe, left posterior lower lobe, right posterior middle lobe and right posterior lower lobe Breath sounds are diminished in left posterior upper lobe, right posterior upper lobe, left posterior lower lobe, right posterior middle lobe and right posterior lower lobe Breath sounds with wheezes in left posterior upper lobe, right posterior upper lobe, left posterior lower lobe, right posterior middle lobe and right posterior lower lobe at expiration. 16:45 Respiratory: Airway is patent Respiratory effort is even, unlabored, Respiratory jh6 pattern is regular symmetrical, Breath sounds are coarse in left posterior upper lobe, right posterior upper lobe, left posterior lower lobe, right posterior middle lobe and right posterior lower lobe Breath sounds with crackles in left posterior upper lobe, right posterior upper lobe, left posterior lower lobe, right posterior middle lobe and right posterior lower lobe Breath sounds are diminished in left posterior lower lobe and right posterior lower lobe. Order Results: Lab Order: -Blood Culture; SPEC'M 07/27/16 15:32 Test: BLOOD CULTURE; Value: No growth after 24 hours . All specimens observed; Status: F Test: BLOOD CULTURE; Value: for 5 days. Results final at that time.; Status: F Test: BLOOD CULTURE; Value: No Growth after 48 hours. All Specimens observed; Status: F Test: BLOOD CULTURE; Value: for 7 days. Results final at that time.; Status: F Lab Order: B-Type Natiuretic Peptide; SPEC'M 07/27/16 15:32 Test: BRAIN NATRIURETIC PEPTIDE; Value: 747; Range: <100; Abnormal: Above high normal; Units: PG/ML; Status: F Lab Order: Basic Metabolic Profile; SPEC'M 07/27/16 16:08 Test: GLUCOSE, FASTING; Value: 352; Range: 83-110; Abnormal: Above high normal; Units: MG/DL; Status: F Test: BLOOD UREA NITROGEN; Value: 45; Range: 7-18; Abnormal: Above high normal; Units: MG/DL; Status: F Test: CREATININE FOR GFR; Value: 2.18; Range: 0.70-1.30; Abnormal: Above high normal; Units: MG/DL; Status: F Test: GLOMERULAR FILTRATION RATE; Value: 32.0; Range: >42; Abnormal: Below low normal; Status: F Test: SODIUM LEVEL; Value: 134; Range: 136-145; Abnormal: Below low normal; Units: MEQ/L; Status: F Test: POTASSIUM SERUM; Value: 4.9; Range: 3.5-5.1; Units: MEQ/L; Status: F Test: CHLORIDE LEVEL; Value: 97; Range: 98-107; Abnormal: Below low normal; Units: MEQ/L; Status: F Test: CARBON DIOXIDE LEVEL; Value: 31; Range: 21-32; Units: MEQ/L; Status: F Test: ANION GAP; Value: 6; Range: 8-16; Abnormal: Below low normal; Units: MEQ/L; Status: F Test: CALCIUM LEVEL; Value: 8.4; Range: 8.8-10.2; Abnormal: Below low normal; Units: MG/DL; Status: F Test Note: ; Units are mL/min/1.73 m2 Chronic Kidney Disease Staging per NKF: Stage I & II GFR >=60 Normal to Mildly Decreased Stage III GFR 30-59 Moderately Decreased Stage IV GFR 15-29 Severely Decreased Stage V GFR <15 Very Little GFR Left ESRD GFR <15 on SKIN CARE CONSULTANT Lab Order: CBC with Diff; SPEC'M 07/27/16 15:32 Test: WHITE BLOOD COUNT; Value: 8.5; Range: 4.0-10.0; Units: K/mm3; Status: F Test: RED BLOOD COUNT; Value: 3.68; Range: 4.30-6.10; Abnormal: Below low normal; Units: M/mm3; Status: F Test: HEMOGLOBIN; Value: 10.5; Range: 14.0-18.0; Abnormal: Below low normal; Units: g/dl; Status: F Test: HEMATOCRIT; Value: 32.4; Range: 42.0-52.0; Abnormal: Below low normal; Units: %; Status: F Test: MEAN CORPUSCULAR VOLUME; Value: 88.0; Range: 80.0-96.0; Units: fl; Status: F Test: MEAN CORPUSCULAR HEMOGLOBIN; Value: 28.7; Range: 27.0-33.0; Units: pg; Status: F Test: MEAN CORPUSCULAR HGB CONC; Value: 32.6; Range: 32.0-36.5; Units: g/dl; Status: F Test: RED CELL DISTRIBUTION WIDTH; Value: 13.2; Range: 11.5-14.5; Units: %; Status: F Test: PLATELET COUNT, AUTOMATED; Value: 185; Range: 150-450; Units: k/mm3; Status: F Test: NEUTROPHILS %; Value: 74.7; Range: 36.0-66.0; Abnormal: Above high normal; Units: %; Status: F Test: LYMPH %; Value: 6.7; Range: 24.0-44.0; Abnormal: Below low normal; Units: %; Status: F Test: MONO %; Value: 9.0; Range: 0.0-5.0; Abnormal: Above high normal; Units: %; Status: F Test: EOS %; Value: 5.4; Range: 0.0-3.0; Abnormal: Above high normal; Units: %; Status: F Test: BASO %; Value: 1.1; Range: 0.0-1.0; Abnormal: Above high normal; Units: %; Status: F Test: LARGE UNSTAINED CELL %; Value: 3.1; Range: 0.0-4.0; Units: %; Status: F Test: NEUTROPHILS #; Value: 6.3; Range: 1.8-7.7; Units: K/mm3; Status: F Test: LYMPH #; Value: 0.8; Range: 1.5-4.5; Abnormal: Below low normal; Units: K/mm3; Status: F Test: MONO #; Value: 0.8; Range: 0.0-0.8; Units: K/mm3; Status: F Test: EOS #; Value: 0.5; Range: 0.0-0.50; Units: K/mm3; Status: F Test: BASO #; Value: 0.1; Range: 0.0-0.2; Units: K/mm3; Status: F Test: LARGE UNSTAINED CELL #; Value: 0.3; Range: 0.0-0.4; Units: K/mm3; Status: F Lab Order: Cardiac Injury Profile; SPEC'M 07/27/16 16:08 Test: CPK CREATINE PHOSPHOKINASE; Value: 280; Range: 39-308; Units: U/L; Status: F Test: CK-MB VALUE MASS; Value: 3.2; Range: 0.0-3.6; Units: NG/ML; Status: F Test: MB/CK RELATIVE INDEX; Value: 1.14; Range: < OR =4; Status: F Test Note: ; DIAGNOSIS CRITERIA MMB ng/ml Relative Index (RI) NON-AMI < or = 5 N/A [place] > 5 < or = 4 AMI > 5 > 4 Lab Order: Troponin; SPEC'M 07/27/16 16:08 Test: TROPONIN I; Value: < 0.02; Range: < 0.10; Units: NG/ML; Status: F Test Note: ; Troponin I Reference Interval for Xytis LOCI: 99th Percentile= 0.00-0.045 ng/ml Risk Stratification: <= 0.10 ng/ml Decreased Risk for Adverse Clinical Events. 0.10-1.50 ng/ml Increased Risk for Adverse Clinical Events. Evaluation of additional criterion and/or repeat testing in 2-6 hours is suggested to rule out myocardial damage. >= 1.50 ng/ml Indicative of Myocardial Injury. Lab Order: -Influenza A&B Rapid Antigen - Nose; SPEC'M 07/27/16 15:54 Test: INFLUENZA A RAPID SCR by ICA; Value: INFLUENZA A RESULTS POSITIVE; Abnormal: Abnormal; Status: F Test: INFLUENZA A RAPID SCR by ICA; Value: Comments:; Status: F Test: INFLUENZA B RAPID SCR by ICA; Value: INFLUENZA B RESULTS NEGATIVE; Status: F Test Note: ; The Influenza test is a direct rapid immunoassay for the qualitative detection of Influenza viral antigen. Cell culture (Viral Culture) testing should be considered to confirm NEGATIVE results and to assist in detecting other viruses that can provide similar clinical symptoms. Please contact the lab within 24 hours ([phone]) if confirmatory testing is desired. Lab Order: BLOOD CULTURES; SPEC'M 07/27/16 15:54 Test: BLOOD CULTURE; Value: No growth after 24 hours . All specimens observed; Status: F Test: BLOOD CULTURE; Value: for 5 days. Results final at that time.; Status: F Test: BLOOD CULTURE; Value: No Growth after 48 hours. All Specimens observed; Status: F Test: BLOOD CULTURE; Value: for 7 days. Results final at that time.; Status: F Radiology Order: Chest, 1 View Test: Chest, 1 View REASON FOR EXAMINATION: Shortness of Breath; Clinical: Acute shortness of breath .; ; Comparison: 04/14/2016 .; ; Findings:; The mediastinum and cardiac silhouette are stable. Prior sternotomy and; pacemaker are again appreciated. The lung ramos demonstrate stable changes; without acute consolidation, effusion, or pneumothorax. 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 sd1 19:27 Discharge Assessment: Patient awake, alert and oriented x 3. No cognitive and/or nn1 functional deficits noted. Patient verbalized understanding of disposition instructions. patient administered narcotics - no. 19:28 The following High Risk Discharge criteria are identified: None. Discharged to home nn1 ambulatory, with family. Condition: stable. No special radiology studies were completed. Property :Personal belongings accompany Pt. 19:28 Patient left the ED. nn1 19:29 Prescriptions given X 4. nn1 Signatures: Dispatcher [employer] EDMS Deloris Garcia MD MD sd1 Johnson, Bruce, RN RN Priscilla Ambriz, Reg Reg gb Radhika Saeed,RN RN ck1 Adal Chen, SENIOR SECURITY ARCHITECT SENIOR SECURITY ARCHITECT 6 Ander Moreira Shereen Garcia, REGINA RN Dago Bryant, SENIOR SECURITY ARCHITECT SENIOR SECURITY ARCHITECT Bonnie Lou RN RN nn1 Angelina Lewis, Reg Reg [id number] Chart Complete MTDD
--- NOTE | 2016-07-29 20:29 | EDDOCDS ---
Physician Documentation [facility] Name: Aaron Drake Age: 70 yrs Sex: Male : 1945 Arrival Date: 07/27/2016 Time: 14:19 Bed 5 Private MD: Iliana Barragan Disposition: 07/27/16 19:03 Discharged to Home/Self Care. Impression: Influenza due to identified novel influenza A virus. - Condition is Stable. - Discharge Instructions: Influenza Adult, How to Use a Nebulizer. - Prescriptions for Tamiflu 75 mg Oral Capsule - take 1 capsule by ORAL route every 12 hours for 5 days; 10 capsule. Albuterol Sulfate 2.5 mg /3 mL (0.083 %) Inhalation Solution for Nebulization - inhale 1 unit by NEBULIZATION route 4 times per day As needed; 1 box. Home Nebulizer - Dx: (wheezing/influenza). Duration: 3 months). Prednisone 20 mg Oral Tablet - take 2 tablet by ORAL route once daily for 5 days; 10 tablet. - Medication Reconciliation, Local Pharmacy Hours form. - Follow up: Emergency Department; When: Tomorrow; Reason: Recheck today's complaints. - Problem is new. - Symptoms have improved. Historical: - Allergies: turkey; - Home Meds: 1. Zithromax 250 mg Oral tab 1 tab once daily 2. aspirin 325 mg Oral tab 1 tab once daily 3. furosemide 40 mg Oral tab 1 tab once daily 4. Lyrica 150mg Oral 2 times per day 5. metoprolol succinate 50 mg Tb24 1 tab once daily 6. Percocet 5-325 mg Oral tab 2 tabs every 4-6 hours 7. Plavix 75 mg Oral tab 1 tab once daily 8. potassium chloride 10 mEq Oral cpER 1 cap once daily - PMHx: Diabetes - IDDM: uncontrolled; Hypercholesterolemia; PR; - PSHx: Stents, Coronary; pacemaker/defibrillator insertion; fem/pop bypass bilaterally; CABG; - Social history: Smoking status: Patient states former smoker of tobacco. No barriers to communication noted, The patient speaks fluent Lithuanian, Speaks appropriately for age. - Family history: Not pertinent. - : The pt / caregiver states he / she is on anticoagulants: Plavix. Home medication list is obtained from the patient. - Exposure Risk Screening:: None identified. Vital Signs: 01/14 14:20 BP 169 / 73; Pulse 82; Resp 18 S; Temp 97.7(O); Pulse Ox 94% on R/A; Weight 90.72 kg / dd6 200 lbs (R); Height 5 ft. 6 in. (167.64 cm) (R); 15:19 BP 175 / 77 (auto/); ck1 15:20 Pulse 82 MON; Pulse Ox 94% ; ck1 17:49 BP 126 / 77 (auto/); ck1 17:49 BP 126 / 77 (auto/); ck1 17:50 Pulse 94 MON; Pulse Ox 96% ; ck1 17:50 Pulse 94 MON; Pulse Ox 96% ; ck1 18:17 BP 140 / 65; Pulse 90; Resp 18; Temp 98.6(O); Pulse Ox 94% on 2 lpm NC; Pain 7/10; ck1 19:26 BP 140 / 63; Pulse 94; Resp 18; Temp 99.1(TE); Pulse Ox 94% on R/A; Pain 0/10; nn1 14:20 Body Mass Index 32.28 (90.72 kg, 167.64 cm) dd6 MDM: 15:02 -Blood Culture (Adults Only), peripheral from different site, or from device/port/PICC sd1 etc. if present ordered. 15:02 Intraoperative Neuro Tech/Pulse Ox/q 15 min VS ordered. sd1 15:02 IV Saline Lock ordered. sd1 15:02 Oxygen at 4L/Min NC or Home dosage ordered. sd1 15:02 Rhythm Strip to chart ordered. sd1 15:02 B-Type Natiuretic Peptide Ordered. EDMS 15:02 Basic Metabolic Profile Ordered. EDMS 15:02 CBC with Diff Ordered. EDMS 15:02 Cardiac Injury Profile Ordered. EDMS 15:02 Troponin Ordered. EDMS 15:02 -Blood Culture Ordered. EDMS 15:03 Chest, 1 View Ordered. EDMS 15:03 ECG WITH READING ER PHYS+CARDIAG ordered. EDMS 15:08 NS 0.9% 1000 ml IV at 150 mL/hr continuous ordered. sd1 15:08 -Blood Culture (Adults Only), peripheral from different site, or from device/port/PICC deg etc. if present complete. 15:09 Obtain sample by nasopharyngeal swab ordered. sd1 15:09 BLOOD CULTURES Ordered. EDMS 15:09 -Influenza A&B Rapid Antigen - Nose Ordered. EDMS 15:46 Financial registration complete. [email or web address] 15:46 [facility] Payment Agreement was scanned into [employer] and attached to record. [email or web address] 15:59 CBC with Diff Reviewed. sd1 15:59 Chest, 1 View Reviewed. sd1 16:12 Albuterol-Ipratropium 3 ml Inhalation once ordered. sd1 16:31 B-Type Natiuretic Peptide Reviewed. sd1 16:31 -Influenza A&B Rapid Antigen - Nose Reviewed. sd1 16:32 Oseltamivir 75 mg PO once ordered. sd1 16:43 REGULAR+DIET ordered. EDMS 17:07 Basic Metabolic Profile Reviewed. sd1 17:07 Cardiac Injury Profile Reviewed. sd1 17:07 Troponin Reviewed. sd1 18:30 Misc. Nursing Order ordered. sd1 18:43 predniSONE 40 mg PO once; administer with food or milk ordered. sd1 07/29 13:56 T-Sheet-- Draft Copy was scanned into [employer] and attached to record. 13:56 ECG/EKG was scanned into [employer] and attached to record. gb Administered Medications: 07/27 15:36 Drug: NS 0.9% 1000 ml [sodium chloride 0.9 % intravenous solution] Route: IV; Rate: 150 ttb mL/hr; Site: right antecubital; 16:37 Drug: Albuterol-Ipratropium 3 ml [ipratropium-albuterol 0.5 mg-3 mg(2.5 mg base)/3 mL 6 nebulization soln (3 mL)] Route: Inhalation; 16:38 Drug: Oseltamivir 75 mg [oseltamivir 75 mg capsule (1 caps)] Route: PO; ck1 18:53 Drug: predniSONE 40 mg [prednisone 20 mg tablet (2 tabs)] Route: PO; ck1 Signatures: Dispatcher [employer] EDNY Deloris Garcia MD MD sd1 Angely Galarza, Industrial Cafeteria Manager Unit deg Justin Rm RN RN Priscilla Ambriz, Reg Reg gb Radhika Saeed RN RN ck1 Bonnie Gutiérrez RN RN nn1 Angelina Lewis, Reg Reg ks16 Ander Moreira jh6 Shereen Smith RN ttb The chart was reviewed and I authenticate all verbal orders and agree with the evaluation and treatment provided.Attachments: 15:46 [facility] Payment Agreement [email or web address] 07/29 13:56 T-Sheet-- Draft Copy gb 13:56 ECG/EKG gb Chart Complete MTDD
== END 2016-07-27 19:28 | disposition home or self-care (01) ==
LOC: M ED 14:19
DX: J09.X2 Influenza due to identified novel influenza A virus with other respiratory manifestations (principal); E11.9 Type 2 diabetes mellitus without complications; I25.2 Old myocardial infarction; E78.00 Pure hypercholesterolemia, unspecified; Z95.0 Presence of cardiac pacemaker; Z87.891 Personal history of nicotine dependence; Z79.02 Long term (current) use of antithrombotics/antiplatelets; Z79.82 Long term (current) use of aspirin; Z79.899 Other long term (current) drug therapy; Z91.018 Allergy to other foods

== ENCOUNTER → 2016-08-02 | Outpatient (CLI) | payer MEDICARE, MEDICAID ==
[~2016-08-02] MED LIST changes: +ALBU83IN INH; +ASPI81CH PO; +CLOP75TA2 PO; +GUAI5ELAC PO; +LISI-542 PO; +METO-207 PO; +NITR4TASL SL; +OMEP40CA2 PO; +OYST250T20 PO; +POTA10CA PO; +TORS100T PO
--- NOTE | 2016-08-02 15:07 | REP ---
CT LUMBAR SPINE WITHOUT CONTRAST: HISTORY: Back pain. There is no disc bulge or herniation at the L1-2 level. The L1 nerves exit the neural foramina without compression. A diffuse disc bulge is present at the L2-3 level. There is minimal compression at the thecal sac. The L2 nerves exit the neural foramina without compression. A diffuse disc bulge is present at the L3-4 level. There is minimal compression of the thecal sac. There is hypertrophy of the posterior articulating facets. The L3 nerves exit the neural foramina without compression. A diffuse disc bulge is present at the L4-5 level. There is minimal compression of the thecal sac. There is hypertrophy of the posterior articulating facets. The L4 nerves exit the neural foramina without compression. A diffuse disc bulge is present at the L5-S1 level. There is minimal compression of the thecal sac. There is hypertrophy of the posterior articulating facets. The L5 nerves exit the neural foramina without compression. The L2-3 through L5-S1 intervertebral discs are decreased in height consistent with disc degeneration. There is no subluxation. IMPRESSION: Diffuse disc bulges at the L2-3 through L5-S1 levels with minimal thecal sac compression.? Signed by Bertrand Miner MD 08/02/2016 03:09 P
== END ==
LOC: M RAD 13:12
PROVIDERS: ATTEND Surgery Vascular Surgery
DX: M48.00 Spinal stenosis, site unspecified (principal); M54.5 Low back pain; M51.36 Other intervertebral disc degeneration, lumbar region; M51.37 Other intervertebral disc degeneration, lumbosacral region

== ENCOUNTER 2016-08-04 10:31 | Inpatient (IN) | payer MEDICARE, MEDICAID ==
[~2016-08-04] VITALS: Ht 170.2 cm; Wt 89.0 kg
[~2016-08-04 10:31] MED LIST changes: -ALBU83IN INH; -ASPI81CH PO; -CLOP75TA2 PO; -GUAI5ELAC PO; -LISI-542 PO; -METO-207 PO; -NITR4TASL SL; -OMEP40CA2 PO; -OYST250T20 PO; -POTA10CA PO; -TORS100T PO
[2016-08-04 10:49] LABS: BASO % 0.2 % (0.0-1.0); EOS # 0.3 K/mm3 (0.0-0.50); EOS % 1.2 % (0.0-3.0); LARGE UNSTAINED CELL # 0.1 K/mm3 (0.0-0.4); LARGE UNSTAINED CELL % 0.6 % (0.0-4.0); LYMPH # 0.9 K/mm3 (1.5-4.5); LYMPH % 3.5 % (24.0-44.0); MEAN CORPUSCULAR HGB CONC 33.7 g/dl (32.0-36.5); MEAN CORPUSCULAR VOLUME 85.9 fl (80.0-96.0); MONO # 0.9 K/mm3 (0.0-0.8); MONO % 3.5 % (0.0-5.0); NEUTROPHILS # 23.1 K/mm3 (1.8-7.7); NEUTROPHILS % 91.1 % (36.0-66.0); PLATELET COUNT, AUTOMATED 311 k/mm3 (150-450); RED CELL DISTRIBUTION WIDTH 12.1 % (11.5-14.5); WHITE BLOOD COUNT 25.4 K/mm3 (4.0-10.0)
[2016-08-04] MEDS ORDERED: ACETAMINOPHEN 325 MG TAB As Ordered ONE (11:13)
[2016-08-04 11:39] LABS: INR 1.02
[2016-08-04 11:50] LABS: CALCIUM LEVEL 9.1 MG/DL (8.8-10.2); CREATININE FOR GFR 2.53 MG/DL (0.70-1.30); GLOMERULAR FILTRATION RATE 26.9 (>42); MAGNESIUM LEVEL 2.4 MG/DL (1.8-2.4); PHOSPHORUS LEVEL 4.4 MG/DL (2.5-4.9); POTASSIUM SERUM 4.5 MEQ/L (3.5-5.1)
--- NOTE | 2016-08-04 12:24 | REP ---
CTA brain without contrast 08/04/16 Indication : CVA greater than 4.5 hours Comparison: None Findings: The ventricles are of normal size and configuration for age. Small amount of periventricular and subcortical white matter hypodensities are consistent with small vessel ischemic disease. Old small bilateral basal ganglia lacunar infarcts are identified. There is no intracranial hemorrhage or extra-axial fluid collection. There is no midline shift or mass effect. Moderate calcifications are present in the distal vertebral arteries, left greater than right. Small amount of calcification is seen in the basilar artery. There are extensive bilateral carotid siphon calcifications. The skull is without fracture . Mucoperiosteal thickening is present within the right sphenoid sinus. Mastoid sinuses are clear. Impression 1. No acute intracranial pathology or hemorrhage. 2. Old small bilateral basal ganglia lacunar infarcts are present. 3. Extensive bilateral carotid siphon calcifications. Signed by Sonal Cameron MD 08/04/2016 12:15 P
--- NOTE | 2016-08-04 13:16 | ECGEPIP ---
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
[2016-08-04] MEDS ORDERED: LISI-542 PO (14:15)
[2016-08-04] MEDS ORDERED: INSULANT SC (14:15)
[2016-08-04] MEDS ORDERED: ALBU83IN INH (14:15)
[2016-08-04] MEDS ORDERED: ASPI81CH PO (14:15)
[2016-08-04] MEDS ORDERED: METO-207 PO (14:15)
[2016-08-04] MEDS ORDERED: OYST250T20 PO (14:15)
[2016-08-04] MEDS ORDERED: ASPI325T PO (14:15)
[2016-08-04] MEDS ORDERED: CLOP75TA2 PO (14:15)
[2016-08-04] MEDS ORDERED: NITR4TASL SL (14:15)
[2016-08-04] MEDS ORDERED: TORS100T PO (14:15)
[2016-08-04] MEDS ORDERED: POTA10CA PO (14:15)
[2016-08-04] MEDS ORDERED: GUAI5ELAC PO (14:16)
[2016-08-04] MEDS ORDERED: OMEP40CA2 PO (14:21)
--- NOTE | 2016-08-04 17:39 | REP ---
Bilateral lower extremity deep vein duplex ultrasound: Comparison is 10/13/2015. The deep veins demonstrate normal compression, normal Doppler color flow and normal Doppler waveforms with respiration and augmentation at multiple levels from the popliteal veins to the common femoral veins bilaterally. Impression: There is no evidence of deep vein thrombus in the right lower extremity or left lower extremity. Signed by Adam Mota MD 08/04/2016 05:31 P
--- NOTE | 2016-08-04 18:25 | EDDOCDS ---
Physician Documentation [facility] Name: Aaron Drake Age: 70 yrs Sex: Male : 1945 Arrival Date: 08/04/2016 Time: 10:31 Bed 4 Private MD: Abhijit Mcpherson MD Disposition: 08/04/16 14:47 Hospitalization ordered by Rosemary Jacob for Inpatient Admission. Preliminary diagnosis are Syncope and collapse, Acute pulmonary edema, Hypotension. - Bed requested for M ICU. - Status is Inpatient Admission. dsf - Condition is Stable. - Problem is new. - Symptoms are unchanged. Historical: - Allergies: turkey; - Home Meds: 1. Lyrica 150mg Oral 2 times per day 2. Percocet 5-325 mg Oral tab 1 tab every 8 hours 3. Prilosec 40 mg Oral cpDR 1 cap once daily 4. furosemide 40 mg Oral tab 1 tab once daily (Last dose: 08/04/2016 07:00) 5. aspirin 325 mg Oral tab 1 tab once daily (Last dose: 08/04/2016 07:00) 6. metoprolol succinate 50 mg Tb24 1 tab once daily (Last dose: 08/04/2016 07:00) 7. potassium chloride 10 mEq Oral cpER 1 cap once daily (Last dose: 08/04/2016 07:00) 8. albuterol sulfate 2.5 mg /3 mL (0.083 %) Nebulizer nebu 4 times per day (Last dose: 08/04/2016 07:00) - PMHx: Diabetes - IDDM: uncontrolled; Hypercholesterolemia; [place]; Hypertension; - PSHx: Stents, Coronary; pacemaker/defibrillator insertion; fem/pop bypass bilaterally; CABG; - Social history: Smoking status: Patient states former smoker of tobacco. No barriers to communication noted, The patient speaks fluent [place]orese, Speaks appropriately for age. - : Unable to assess if pt is on anticoagulants. Home medication list is obtained from patients' pharmacy. - Exposure Risk Screening:: None identified. Vital Signs: 08/04 10:35 Weight 93.89 kg / 206.99 lbs (R); Height 5 ft. 7 in. (170.18 cm); Pain 0/10; dsf 10:44 BP 95 / 52; Pulse 93; Resp 18; Temp 100.3(TE); Pulse Ox 98% on 3 lpm NC; Weight 87.7 kg ct3 / 193.35 lbs (M); 10:48 BP 79 / 41 (auto/); dsf 10:50 Pulse 90 MON; Pulse Ox 93% ; dsf 10:51 BP 91 / 52 (auto/); dsf 10:51 Pulse 90 MON; Pulse Ox 93% ; dsf 11:03 BP 98 / 54 (auto/); dsf 11:03 Pulse 90 MON; Pulse Ox 94% ; dsf 11:44 BP 129 / 77 (auto/); dsf 11:44 Pulse 84 MON; Pulse Ox 97% ; dsf 12:33 BP 77 / 41 (auto/); dsf 12:33 Pulse 78 MON; Pulse Ox 95% ; dsf 12:42 Resp 18; Temp 98.7(TE); ct3 12:42 Pulse 76 MON; Pulse Ox 94% ; dsf 12:42 BP 87 / 47 (auto/); dsf 12:48 BP 84 / 49 (auto/); dsf 12:48 Pulse 76 MON; Pulse Ox 94% ; dsf 13:03 BP 89 / 48 (auto/); dsf 13:04 Pulse 74 MON; Pulse Ox 96% ; dsf 13:11 BP 105 / 53 (auto/); dsf 13:11 Pulse 74 MON; Pulse Ox 97% ; dsf 13:18 BP 96 / 55 (auto/); dsf 13:19 Pulse 76 MON; Pulse Ox 97% ; dsf 13:32 Pulse 76 MON; Pulse Ox 96% ; dsf 13:33 BP 94 / 55 (auto/); dsf 13:48 BP 95 / 56 (auto/); dsf 13:49 Pulse 78 MON; Pulse Ox 97% ; dsf 14:03 BP 89 / 62 (auto/); dsf 14:03 Pulse 76 MON; Pulse Ox 97% ; dsf 14:37 BP 96 / 51 (auto/); dsf 14:37 Pulse 74 MON; Resp 20; Temp 98.0(TE); Pulse Ox 97% on 3 lpm NC; Pain 0/10; dsf 16:39 BP 118 / 55 (auto/); dsf 16:40 Pulse 72 MON; Pulse Ox 97% ; dsf 18:10 BP 123 / 60 (auto/); bcj 18:10 Pulse 74 MON; Resp 20; Pulse Ox 97% on 3 lpm NC; Pain 0/10; bcj 18:10 Temp 97.1(T); bcj 10:44 Body Mass Index 30.28 (87.70 kg, 170.18 cm) ct3 12:42 Dr. 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 br1 10:36 IV Saline Lock ordered. br1 10:36 Rhythm Strip to chart ordered. br1 10:36 Undress patient appropriately for examination ordered. br1 10:38 Basic Metabolic Profile Ordered. EDMS 10:38 CBC with Diff Ordered. EDMS 10:38 Cardiac Injury Profile Ordered. EDMS 10:38 Troponin Ordered. EDMS 10:38 portable chest Ordered. EDMS 10:39 ECG WITH READING ER PHYS+CARDIAG ordered. EDMS 10:47 PT/INR Ordered. EDMS 10:47 PTT Ordered. EDMS 10:51 MAGNESIUM LEVEL Ordered. EDMS 10:52 PHOSPHOROUS LEVEL Ordered. EDMS 11:02 NS 0.9% 500 ml IV at bolus once ordered. br1 11:02 -Blood Culture (Adults Only), peripheral from different site, or from device/port/PICC br1 etc. if present ordered. 11:03 Lactic Acid (Otero tube on ice) Ordered. EDMS 11:03 -Blood Culture Ordered. EDMS 11:03 Acetaminophen Tablet 650 mg PO once ordered. br1 11:04 -Blood Culture (Adults Only), peripheral from different site, or from device/port/PICC ar3 etc. if present complete. 11:04 Jordan ordered. br1 11:04 CBC with Diff Reviewed. br1 11:04 CT Head Without Contrast Ordered. EDMS 11:05 BLOOD CULTURES Ordered. EDMS 11:05 Urine Culture Ordered. EDMS 11:05 Urinalysis Ordered. EDMS 11:05 cefTRIAXone 2 grams IVPB once over 30 mins; dilute in 50mL of NS or D5W ordered. br1 11:09 BED REQUEST+ADM ordered. EDMS 11:39 [facility] Payment Agreement was scanned into [employer] and attached to record. lg 11:47 Financial registration complete. lg 12:09 Basic Metabolic Profile Reviewed. br1 12:09 Cardiac Injury Profile Reviewed. br1 12:09 Urinalysis Reviewed. br1 12:09 Troponin Reviewed. br1 12:09 PT/INR Reviewed. br1 12:09 PTT Reviewed. br1 12:09 MAGNESIUM LEVEL Reviewed. br1 12:09 PHOSPHOROUS LEVEL Reviewed. br1 12:09 Lactic Acid (Otero tube on ice) Reviewed. br1 12:51 NS 0.9% 500 ml IV at bolus once ordered. dsf 15:09 Duplex, Ext LOWER veins, bilat Ordered. EDMS 15:10 Admission / Observation Status ordered. EDMS 15:10 CONSISTENT CARBOHYDRATES ordered. EDMS 16:11 MRSA SCREEN Ordered. EDMS Administered Medications: 11:19 Drug: Acetaminophen 650 mg [acetaminophen 325 mg tablet (2 tabs)] Route: PO; dsf 12:19 Follow up: Response: Temperature is decreased dsf 11:20 Drug: NS 0.9% 500 ml [sodium chloride 0.9 % injection solution] Route: IV; Rate: bolus; dsf Site: right antecubital; 12:40 Follow up: IV Status: Completed infusion; IV Intake: 500ml dsf 11:57 Drug: cefTRIAXone 2 grams [ceftriaxone 1 gram solution for injection] Route: IVPB; dsf Infused Over: 30 mins; Site: right antecubital; 12:40 Follow up: IV Status: Completed infusion; IV Intake: 100ml dsf 12:49 Drug: NS 0.9% 500 ml [sodium chloride 0.9 % injection solution] Route: IV; Rate: bolus; dsf Site: right antecubital; 13:48 Follow up: IV Status: Completed infusion; IV Intake: 500ml ld5 14:40 Follow up: IV Status: Completed infusion; IV Intake: 500ml dsf 14:21 CANCELLED (Dr. Jacob wants to hold fluids ): NS 0.9% 500 ml IV at bolus once dsf Signatures: Dispatcher [employer] EDMS Medardo Smiley, Reg Reg lg Sanjay Griffith MD MD br1 Chanell Velazquez, WIRE LOOP MACHINE OPERATOR WIRE LOOP MACHINE OPERATOR ar3 Estefany Summers RN RN dsf Duyen Bravo RN ld5 The chart was reviewed and I authenticate all verbal orders and agree with the evaluation and treatment provided.Corrections: (The following items were deleted from the chart) 10:51 10:47 MAGNESIUM LEVEL+LAB ordered. EDMS EDMS 10:51 10:47 PHOSPHOROUS LEVEL+LAB ordered. EDMS EDMS 14:21 14:16 NS 0.9% 500 ml IV at bolus once ordered. br1 dsf Attachments: 11:39 [facility] Payment Agreement lg MTDD
--- NOTE | 2016-08-04 18:25 | EDDOCDS ---
Nurse's Notes [facility] Name: Aaron Drake Age: 70 yrs Sex: Male : 1945 Arrival Date: 08/04/2016 Time: 10:31 Bed 4 Private MD: Abhijit Mcpherson MD Diagnosis: Syncope and collapse;Acute pulmonary edema;Hypotension Presentation: 08/04 10:33 Presenting complaint: EMS states: pt states his defibrillator went off. pt was awake, dsf alert and lethargic on EMS arrival. SR on montior. pt denies CP. Pt reports weakness. Aspirin was taken [employer]. Adult Sepsis Screening:. Suicide/Homicide risk assessment- the patient denies having any suicidal and/or homicidal ideations and does not present with any other emotional, behavioral or mental health complaints. Status: Patient is not a director of social services or dependent. Transition of care: patient was not received from another setting of care. 10:33 Acuity: AMY Level 2 dsf 10:33 Method Of Arrival: Ambulance dsf 10:35 Care prior to arrival: See EMS report. Glucose check. 260. dsf 10:35 Adult Sepsis Screening: The patient does not have new or worsening altered mentation. bcj Patient's respiratory rate is less than 22. Systolic blood pressure is less than or equal to 100 (1 point). Patient has a qSOFA score of 1- Negative Sepsis Screen. Triage Assessment: 10:35 General: Appears in no apparent distress, Behavior is cooperative. Pain: Denies pain. dsf The patient is triaged at the bedside. See Assessment in Nurses Notes section of ED record. Neurological: Level of Consciousness is lethargic, Reports weakness. Cardiovascular: Chest pain is denied. Respiratory: Airway is patent Respiratory effort is even, unlabored, Respiratory pattern is regular, symmetrical. Derm: Skin is pink, warm & dry. Historical: - Allergies: turkey; - Home Meds: 1. Lyrica 150mg Oral 2 times per day 2. Percocet 5-325 mg Oral tab 1 tab every 8 hours 3. Prilosec 40 mg Oral cpDR 1 cap once daily 4. furosemide 40 mg Oral tab 1 tab once daily (Last dose: 08/04/2016 07:00) 5. aspirin 325 mg Oral tab 1 tab once daily (Last dose: 08/04/2016 07:00) 6. metoprolol succinate 50 mg Tb24 1 tab once daily (Last dose: 08/04/2016 07:00) 7. potassium chloride 10 mEq Oral cpER 1 cap once daily (Last dose: 08/04/2016 07:00) 8. albuterol sulfate 2.5 mg /3 mL (0.083 %) Nebulizer nebu 4 times per day (Last dose: 08/04/2016 07:00) - PMHx: Diabetes - IDDM: uncontrolled; Hypercholesterolemia; VA; Hypertension; - PSHx: Stents, Coronary; pacemaker/defibrillator insertion; fem/pop bypass bilaterally; CABG; - Social history: Smoking status: Patient states former smoker of tobacco. No barriers to communication noted, The patient speaks fluent Syrian, Speaks appropriately for age. - : Unable to assess if pt is on anticoagulants. Home medication list is obtained from patients' pharmacy. - Exposure Risk Screening:: None identified. Screenin:09 Screening information is obtained from the patient. Fall risk: No risks identified. bcj Assistance ADL's: requires no assistance with activities of daily living. Abuse/DV Screen: The patient / caregiver reports he/she is: not in a situation that causes fear, pain or injury. Nutritional screening: No deficits noted. Advance Directives: Currently, there is no health care proxy. home support is adequate. Assessment: 10:53 Adult Sepsis Screening: The patient does not have new or worsening altered mentation. dsf Patient's respiratory rate is less than 22. Systolic blood pressure is less than or equal to 100 (1 point). Patient has a qSOFA score of 1- Negative Sepsis Screen. General: Appears in no apparent distress, Behavior is lethargic. Pain: Denies pain. Neurological: Level of Consciousness is lethargic. Cardiovascular: Capillary refill < 3 seconds Heart tones S1 S2 present Rhythm is sinus rhythm No ectopy. Respiratory: Airway is patent Respiratory effort is even, unlabored, Respiratory pattern is regular, symmetrical, Breath sounds with crackles in left posterior lower lobe and right posterior lower lobe Breath sounds are diminished in right upper lobe and left upper lobe Reports cough that is productive. GI: Abdomen is non- distended Bowel sounds present X 4 quads. Abd is soft and non tender X 4 quads. Derm: Skin is pink, warm & dry. 11:58 General: Appears in no apparent distress, Behavior is lethargic . Pain: Denies pain. dsf Neurological: Level of Consciousness is lethargic, Reports weakness. Cardiovascular: Capillary refill < 3 seconds Rhythm is sinus rhythm No ectopy. Respiratory: Airway is patent Respiratory effort is even, unlabored, Respiratory pattern is regular, symmetrical. Derm: Skin is pink, warm & dry. 12:51 Adult Sepsis Screening: The patient does not have new or worsening altered mentation. dsf Patient's respiratory rate is less than 22. Systolic blood pressure is less than or equal to 100 (1 point). Patient has a qSOFA score of 1- Negative Sepsis Screen. General: Appears to be sleeping. Respiratory: Airway is patent Respiratory effort is even, unlabored, Respiratory pattern is regular, symmetrical. Derm: Skin is pink, warm & dry. 13:34 General: Appears to be sleeping. Cardiovascular: Rhythm is sinus rhythm No ectopy. dsf Respiratory: Airway is patent Respiratory effort is even, unlabored, Respiratory pattern is regular, symmetrical. Derm: Skin is pink, warm & dry. 13:40 General: Dr. fountain talking to patient about test results and plan of care . dsf 14:00 Adult Sepsis Screening: The patient does not have new or worsening altered mentation. dsf Patient's respiratory rate is less than 22. Systolic blood pressure is less than or equal to 100 (1 point). Patient has a qSOFA score of 1- Negative Sepsis Screen. General: Appears in no apparent distress, comfortable, Behavior is appropriate for age, cooperative. Pain: Denies pain. Neurological: Level of Consciousness is awake, alert. Cardiovascular: Capillary refill < 3 seconds Heart tones S1 S2 present Rhythm is sinus rhythm No ectopy. Respiratory: Airway is patent Respiratory effort is even, unlabored, Respiratory pattern is regular, symmetrical, Breath sounds with crackles bilaterally. GI: Abdomen is non- distended Bowel sounds present X 4 quads. Abd is soft and non tender X 4 quads. Derm: Skin is pink, warm & dry. 14:19 General: Dr. jacob in room examining patient. Dr. jacob aware of BP . dsf 15:05 General: Appears in no apparent distress, comfortable, to be sleeping. Cardiovascular: dsf Rhythm is sinus rhythm No ectopy. Respiratory: Airway is patent Respiratory effort is even, unlabored, Respiratory pattern is regular, symmetrical, Breath sounds with crackles bilaterally. Derm: Skin is pink, warm & dry. 16:05 Adult Sepsis Screening: The patient does not have new or worsening altered mentation. dsf Patient's respiratory rate is less than 22. Systolic blood pressure is less than or equal to 100 (1 point). Patient has a qSOFA score of 1- Negative Sepsis Screen. General: Appears to be sleeping. Cardiovascular: Rhythm is sinus rhythm No ectopy. Respiratory: Airway is patent Respiratory effort is even, unlabored, Respiratory pattern is regular, symmetrical. Derm: Skin is pink, warm & dry. 17:37 General: Appears in no apparent distress, to be sleeping. Cardiovascular: Capillary dsf refill < 3 seconds Heart tones S1 S2 present Rhythm is sinus rhythm No ectopy. Respiratory: Airway is patent Respiratory effort is even, unlabored, Respiratory pattern is regular, symmetrical, Breath sounds with crackles bilaterally. GI: Abdomen is non- distended Bowel sounds present X 4 quads. Derm: Skin is pink, warm & dry. 18:12 General: Appears in no apparent distress, Behavior is appropriate for age, cooperative. bcj Neurological: Level of Consciousness is awake, alert. Cardiovascular: Capillary refill < 3 seconds Rhythm is sinus rhythm No ectopy. Respiratory: Airway is patent Respiratory effort is even, unlabored, Respiratory pattern is regular, symmetrical. Derm: Skin is pink, warm & dry. Vital Signs: 10:35 Weight 93.89 kg (R); Height 5 ft. 7 in. (170.18 cm); Pain 0/10; dsf 10:44 BP 95 / 52; Pulse 93; Resp 18; Temp 100.3(TE); Pulse Ox 98% on 3 lpm NC; Weight 87.7 kg ct3 (M); 10:48 BP 79 / 41 (auto/); dsf 10:50 Pulse 90 MON; Pulse Ox 93% ; dsf 10:51 BP 91 / 52 (auto/); dsf 10:51 Pulse 90 MON; Pulse Ox 93% ; dsf 11:03 BP 98 / 54 (auto/); dsf 11:03 Pulse 90 MON; Pulse Ox 94% ; dsf 11:44 BP 129 / 77 (auto/); dsf 11:44 Pulse 84 MON; Pulse Ox 97% ; dsf 12:33 BP 77 / 41 (auto/); dsf 12:33 Pulse 78 MON; Pulse Ox 95% ; dsf 12:42 Resp 18; Temp 98.7(TE); ct3 12:42 Pulse 76 MON; Pulse Ox 94% ; dsf 12:42 BP 87 / 47 (auto/); dsf 12:48 BP 84 / 49 (auto/); dsf 12:48 Pulse 76 MON; Pulse Ox 94% ; dsf 13:03 BP 89 / 48 (auto/); dsf 13:04 Pulse 74 MON; Pulse Ox 96% ; dsf 13:11 BP 105 / 53 (auto/); dsf 13:11 Pulse 74 MON; Pulse Ox 97% ; dsf 13:18 BP 96 / 55 (auto/); dsf 13:19 Pulse 76 MON; Pulse Ox 97% ; dsf 13:32 Pulse 76 MON; Pulse Ox 96% ; dsf 13:33 BP 94 / 55 (auto/); dsf 13:48 BP 95 / 56 (auto/); dsf 13:49 Pulse 78 MON; Pulse Ox 97% ; dsf 14:03 BP 89 / 62 (auto/); dsf 14:03 Pulse 76 MON; Pulse Ox 97% ; dsf 14:37 BP 96 / 51 (auto/); dsf 14:37 Pulse 74 MON; Resp 20; Temp 98.0(TE); Pulse Ox 97% on 3 lpm NC; Pain 0/10; dsf 16:39 BP 118 / 55 (auto/); dsf 16:40 Pulse 72 MON; Pulse Ox 97% ; dsf 18:10 BP 123 / 60 (auto/); bcj 18:10 Pulse 74 MON; Resp 20; Pulse Ox 97% on 3 lpm NC; Pain 0/10; bcj 18:10 Temp 97.1(T); bcj 10:44 Body Mass Index 30.28 (87.70 kg, 170.18 cm) ct3 12:42 Dr. Fountain notified new orders recieved dsf Vitals: 10:35 Log In Time N/A - ambulance arrival. f ED Course: 10:32 Patient visited by Chanell Velazquez PCA. ar3 10:32 Abhijit Mcpherson is Private Physician. ar3 10:32 Patient moved to Waiting ar3 10:32 Patient moved to 4 ar3 10:34 Triage Initiated dsf 10:35 The patient / caregiver is instructed regarding the plan of care and ED course. dsf 10:35 O2 via nasal cannula \T\ 3L/min. dsf 10:40 Erika Fountain MD is Attending Physician. br1 10:45 Basic Metabolic Profile Sent. dsf 10:45 CBC with Diff Sent. dsf 10:45 Cardiac Injury Profile Sent. dsf 10:45 Troponin Sent. dsf 10:45 EKG done. (by ED staff). Reviewed by Erika Fountain MD. tk 10:48 Patient visited by Eric Coffey. tk 10:53 Patient visited by Megan To PCA. ct3 10:53 Accompanied by Family Member, Patient has correct armband on for positive ct3 identification. Placed in gown. Bed in low position. Call light in reach. Side rails up X2. coat baster on. Pulse ox on. NIBP on. 10:54 Patient visited by Estefany Summers RN. dsf 10:54 Inserted saline lock: 20 gauge in right antecubital area The patient tolerated the dsf procedure well. 11:02 Patient visited by Erika Fountain MD. br1 11:[address] pml 11:17 Patient moved to 4 je3 11:37 Jordan cath inserted 16 Fr. Balloon inflated. Urine specimen collected. returned clear dsf yellow urine. Patient tolerated well. 11:39 [facility] Payment Agreement was scanned into [employer] and attached to record. lg 11:47 Urine Culture Sent. dsf 11:47 Urinalysis Sent. dsf 11:57 BLOOD CULTURES Sent. dsf 11:59 Patient visited by Estefany Summers RN. dsf 12:30 Patient visited by Megan To PCA. ct3 12:33 Patient visited by Eric Coffey. tk 12:33 Assisted with bedpan. tk 12:33 CT Head Without Contrast Returned. EDMS 12:43 Patient visited by Megan To PCA. ct3 12:51 Patient visited by Estefany Summers RN. dsf 13:34 Patient visited by Estefany Summers RN. dsf 13:43 Patient visited by Estefany Summers RN. dsf 13:43 EKG-ADULT Returned. EDMS 14:20 Patient visited by Estefany Summers RN. dsf 14:46 Rosemary Jacob is Hospitalizing Provider. br1 15:05 Patient visited by Estefany Summers RN. dsf 16:08 Patient moved to Ultrasound dsf 18:06 Patient moved to [facility] 18:08 Duplex, Ext LOWER veins, bilat Returned. EDMS 18:10 No procedures done that require assistance. bcj Administered Medications: 11:19 Drug: Acetaminophen 650 mg [acetaminophen 325 mg tablet (2 tabs)] Route: PO; dsf 12:19 Follow up: Response: Temperature is decreased dsf 11:20 Drug: NS 0.9% 500 ml [sodium chloride 0.9 % injection solution] Route: IV; Rate: bolus; dsf Site: right antecubital; 12:40 Follow up: IV Status: Completed infusion; IV Intake: 500ml dsf 11:57 Drug: cefTRIAXone 2 grams [ceftriaxone 1 gram solution for injection] Route: IVPB; dsf Infused Over: 30 mins; Site: right antecubital; 12:40 Follow up: IV Status: Completed infusion; IV Intake: 100ml dsf 12:49 Drug: NS 0.9% 500 ml [sodium chloride 0.9 % injection solution] Route: IV; Rate: bolus; dsf Site: right antecubital; 13:48 Follow up: IV Status: Completed infusion; IV Intake: 500ml ld5 14:40 Follow up: IV Status: Completed infusion; IV Intake: 500ml dsf 14:21 CANCELLED (Dr. Jacob wants to hold fluids ): NS 0.9% 500 ml IV at bolus once dsf Intake: 12:40 IV: 100.00ml; Total: 100.00ml. dsf 12:40 IV: 500.00ml; Total: 600.00ml. dsf 13:48 IV: 500.00ml; Total: 1100.00ml. ld5 14:40 IV: 500.00ml; Total: 1600.00ml. dsf Output: 17:06 Urine: 175.00ml (Jordan); Total: 175.00ml. dsf Order Results: Lab Order: Basic Metabolic Profile; SPEC'M 08/04/16 11:22 Test: GLUCOSE, FASTING; Value: 231; Range: 83-110; Abnormal: Above high normal; Units: MG/DL; Status: F Test: BLOOD UREA NITROGEN; Value: 55; Range: 7-18; Abnormal: Above high normal; Units: MG/DL; Status: F Test: CREATININE FOR GFR; Value: 2.53; Range: 0.70-1.30; Abnormal: Above high normal; Units: MG/DL; Status: F Test: GLOMERULAR FILTRATION RATE; Value: 26.9; Range: >42; Abnormal: Below low normal; Status: F Test: SODIUM LEVEL; Value: 133; Range: 136-145; Abnormal: Below low normal; Units: MEQ/L; Status: F Test: POTASSIUM SERUM; Value: 4.5; Range: 3.5-5.1; Units: MEQ/L; Status: F Test: CHLORIDE LEVEL; Value: 94; Range: 98-107; Abnormal: Below low normal; Units: MEQ/L; Status: F Test: CARBON DIOXIDE LEVEL; Value: 31; Range: 21-32; Units: MEQ/L; Status: F Test: ANION GAP; Value: 8; Range: 8-16; Units: MEQ/L; Status: F Test: CALCIUM LEVEL; Value: 9.1; Range: 8.8-10.2; Units: MG/DL; Status: F Test Note: ; Units are mL/min/1.73 m2 Chronic Kidney Disease Staging per NKF: Stage I & II GFR >=60 Normal to Mildly Decreased Stage III GFR 30-59 Moderately Decreased Stage IV GFR 15-29 Severely Decreased Stage V GFR <15 Very Little GFR Left ESRD GFR <15 on UX DEVELOPER Lab Order: CBC with Diff; SPEC'M 08/04/16 10:43 Test: WHITE BLOOD COUNT; Value: 25.4; Range: 4.0-10.0; Abnormal: Above high normal; Units: K/mm3; Status: F Test: RED BLOOD COUNT; Value: 4.01; Range: 4.30-6.10; Abnormal: Below low normal; Units: M/mm3; Status: F Test: HEMOGLOBIN; Value: 11.6; Range: 14.0-18.0; Abnormal: Below low normal; Units: g/dl; Status: F Test: HEMATOCRIT; Value: 34.5; Range: 42.0-52.0; Abnormal: Below low normal; Units: %; Status: F Test: MEAN CORPUSCULAR VOLUME; Value: 85.9; Range: 80.0-96.0; Units: fl; Status: F Test: MEAN CORPUSCULAR HEMOGLOBIN; Value: 29.0; Range: 27.0-33.0; Units: pg; Status: F Test: MEAN CORPUSCULAR HGB CONC; Value: 33.7; Range: 32.0-36.5; Units: g/dl; Status: F Test: RED CELL DISTRIBUTION WIDTH; Value: 12.1; Range: 11.5-14.5; Units: %; Status: F Test: PLATELET COUNT, AUTOMATED; Value: 311; Range: 150-450; Units: k/mm3; Status: F Test: NEUTROPHILS %; Value: 91.1; Range: 36.0-66.0; Abnormal: Above high normal; Units: %; Status: F Test: LYMPH %; Value: 3.5; Range: 24.0-44.0; Abnormal: Below low normal; Units: %; Status: F Test: MONO %; Value: 3.5; Range: 0.0-5.0; Units: %; Status: F Test: EOS %; Value: 1.2; Range: 0.0-3.0; Units: %; Status: F Test: BASO %; Value: 0.2; Range: 0.0-1.0; Units: %; Status: F Test: LARGE UNSTAINED CELL %; Value: 0.6; Range: 0.0-4.0; Units: %; Status: F Test: NEUTROPHILS #; Value: 23.1; Range: 1.8-7.7; Abnormal: Above high normal; Units: K/mm3; Status: F Test: LYMPH #; Value: 0.9; Range: 1.5-4.5; Abnormal: Below low normal; Units: K/mm3; Status: F Test: MONO #; Value: 0.9; Range: 0.0-0.8; Abnormal: Above high normal; Units: K/mm3; Status: F Test: EOS #; Value: 0.3; Range: 0.0-0.50; Units: K/mm3; Status: F Test: BASO #; Value: 0.0; Range: 0.0-0.2; Units: K/mm3; Status: F Test: LARGE UNSTAINED CELL #; Value: 0.1; Range: 0.0-0.4; Units: K/mm3; Status: F Lab Order: Cardiac Injury Profile; [facility] 08/04/16 11:22 Test: CPK CREATINE PHOSPHOKINASE; Value: 166; Range: 39-308; Units: U/L; Status: F Test: CK-MB VALUE MASS; Value: 4.3; Range: 0.0-3.6; Abnormal: Above high normal; Units: NG/ML; Status: F Test: MB/CK RELATIVE INDEX; Value: 2.59; Range: < OR =4; Status: F Test Note: ; DIAGNOSIS CRITERIA MMB ng/ml Relative Index (RI) NON-AMI < or = 5 N/A OTERO ZONE > 5 < or = 4 AMI > 5 > 4 Lab Order: Troponin; [facility] 08/04/16 11:22 Test: TROPONIN I; Value: 0.05; Range: < 0.10; Units: NG/ML; Status: F Test Note: ; Troponin I Reference Interval for [place] LOCI: 99th Percentile= 0.00-0.045 ng/ml Risk Stratification: <= 0.10 ng/ml Decreased Risk for Adverse Clinical Events. 0.10-1.50 ng/ml Increased Risk for Adverse Clinical Events. Evaluation of additional criterion and/or repeat testing in 2-6 hours is suggested to rule out myocardial damage. >= 1.50 ng/ml Indicative of Myocardial Injury. Lab Order: PT/INR; [facility] 08/04/16 11:24 Test: PROTHROMBIN TIME; Value: 13.5; Range: 12.3-14.5; Units: SECONDS; Status: F Test: INR; Value: 1.02; Status: F Test Note: ; THERAPUTIC HUMAN INR VALUES INDICATIONS NORMAL RANGES PROPHYLAXIS/TREATMENT OF: VENOUS THROMBOSIS 2.0-3.0 PULMONARY EMBOLISM 2.0-3.0 PREVENTION OF SYSTEMIC EMBOLISM FROM: TISSUE HEART VALVES 2.0-3.0 ACUTE MYOCARDIAL INFARCTION 2.0-3.0 VALVULAR HEART DISEASE 2.0-3.0 ATRIAL FIBRILLATION 2.0-3.0 MECHANICAL VALVES(HIGH RISK) 2.5-3.5 RECURRENT MYOCARDIAL INFARCTION 2.5-3.5 Lab Order: PTT; [facility] 08/04/16 11:24 Test: PARTIAL THROMBOPLASTIN TIME; Value: 30.3; Range: 26.6-37.1; Units: SECONDS; Status: F Lab Order: MAGNESIUM LEVEL; [facility] 08/04/16 11:22 Test: MAGNESIUM LEVEL; Value: 2.4; Range: 1.8-2.4; Units: MG/DL; Status: F Lab Order: PHOSPHOROUS LEVEL; [facility] 08/04/16 11:22 Test: PHOSPHORUS LEVEL; Value: 4.4; Range: 2.5-4.9; Units: MG/DL; Status: F Lab Order: Lactic Acid (Otero tube on ice); [facility] 08/04/16 11:22 Test: LACTIC ACID LEVEL, LACTATE; Value: 1.9; Range: 0.4-2.0; Units: MMOL/L; Status: F Lab Order: Urinalysis; [facility] 08/04/16 11:42 Test: APPEARANCE, URINE; Value: CLEAR; Range: CLEAR; Status: F Test: COLOR, URINE; Value: YELLOW; Range: YELLOW; Status: F Test: PH,URINE; Value: 5.0; Range: 5.0-9.0; Units: UNITS; Status: F Test: SPECIFIC GRAVITY URINE AUTO; Value: 1.008; Range: 1.002-1.035; Status: F Test: PROTEIN, URINE AUTO; Value: 3+; Range: NEGATIVE; Abnormal: Above high normal; Units: mg/dL; Status: F Test: GLUCOSE, URINE (UA) AUTO; Value: 3+; Range: NEGATIVE; Abnormal: Above high normal; Units: mg/dL; Status: F Test: KETONE, URINE AUTO; Value: NEGATIVE; Range: NEGATIVE; Units: mg/dL; Status: F Test: UROBILINOGEN, URINE AUTO; Value: 0.2; Range: 0.0-2.0; Units: mg/dL; Status: F Test: BILIRUBIN, URINE AUTO; Value: NEGATIVE; Range: NEGATIVE; Status: F Test: NITRITE, URINE AUTO; Value: NEGATIVE; Range: NEGATIVE; Status: F Test: LEUKOCYTE ESTERASE, URINE AUTO; Value: NEGATIVE; Range: NEGATIVE; Status: F Test: BLOOD, URINE BLOOD; Value: 1+; Range: NEGATIVE; Abnormal: Above high normal; Status: F Test: WBC, URINE AUTO; Value: 1; Range: 0-3; Units: /HPF; Status: F Test: RBC, URINE AUTO; Value: 2; Range: 0-3; Units: /HPF; Status: F Test: BACTERIA, URINE AUTO; Value: NEGATIVE; Range: NEGATIVE; Status: F Test: SQUAMOUS EPITHELIAL CELL UR AU; Value: 0; Range: 0-6; Units: /HPF; Status: F Test: HYALINE CAST, URINE AUTO; Value: 4; Range: 0-1; Units: /LPF; Status: F Test: AMORPHOUS SEDIMENT; Value: SMALL; Range: NEGATIVE; Abnormal: Above high normal; Status: F Radiology Order: EKG-ADULT Test: EKG-ADULT REASON FOR EXAMINATION: Chest Pain; Stationary ECG Study; [facility] - ED; ; Test Date: 2016-08-04; Pat Name: AARON DRAKE Department:; Room: -; Gender: M [employer]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; : 1945 Requested By: ERIKA Guzman; Order Number: [id number] Reading MD: Deloris Garcia; Measurements; Intervals [place]; Rate: 90 P: 55; KS: 163 QRS: 23; QRSD: 109 T: 137; QT: 360; QTc: 443; Interpretive Statements; SINUS RHYTHM; LEFT ATRIAL ENLARGEMENT; INFERIOR MYOCARDIAL INFARCTION, PROBABLY OLD; MODERATE T-WAVE ABNORMALITY, CONSIDER ISCHEMIA; SIMILAR 07/27/16; Electronically Signed On 08-04-2016 13:16:30 EST by Deloris Garcia; Radiology Order: CT Head Without Contrast Test: CT Head Without Contrast REASON FOR EXAMINATION: CVA >4.5hrs; CTA brain without contrast 08/04/16; ; Indication : CVA greater than 4.5 hours; ; Comparison: None; ; Findings: The ventricles are of normal size and configuration for age. Small; amount of periventricular and subcortical white matter hypodensities are; consistent with small vessel ischemic disease. Old small bilateral basal; ganglia lacunar infarcts are identified. There is no intracranial hemorrhage or; extra-axial fluid collection. There is no midline shift or mass effect.; ; Moderate calcifications are present in the distal vertebral arteries, left; greater than right. Small amount of calcification is seen in the basilar artery.; There are extensive bilateral carotid siphon calcifications.; ; The skull is without fracture . Mucoperiosteal thickening is present within the; right sphenoid sinus. Mastoid sinuses are clear.; ; Impression; 1. No acute intracranial pathology or hemorrhage.; ; 2. Old small bilateral basal ganglia lacunar infarcts are present.; ; 3. Extensive bilateral carotid siphon calcifications.; ; ; ; ; ; ; Signed by; Sonal Cameron MD 08/04/2016 12:15 P; Radiology Order: Duplex, Ext LOWER veins, bilat Test: Duplex, Ext LOWER veins, bilat REASON FOR EXAMINATION: leg pain; Bilateral lower extremity deep vein duplex ultrasound:; ; Comparison is 10/13/2015.; ; The deep veins demonstrate normal compression, normal Doppler color flow and; normal Doppler waveforms with respiration and augmentation at multiple levels; from the popliteal veins to the common femoral veins bilaterally.; ; Impression:; ; There is no evidence of deep vein thrombus in the right lower extremity or left; lower extremity.; ; ; Signed by; Adam Mota MD 08/04/2016 05:31 P; Outcome: 14:47 Decision to Hospitalize by Provider. br1 18:09 CT Study completed. Admission hand-off: Report called to Angelica TAPIA. [facility] 18:11 Discharge Assessment: Patient awake, alert and oriented x 3. No cognitive and/or j functional deficits noted. Patient verbalized understanding of disposition instructions. patient administered narcotics - no. The following High Risk Discharge criteria are identified: None. Admitted to ICU accompanied by nurse, accompanied by tech, family with patient, via stretcher, with oxygen, on monitor, with chart. Condition: stable. Property :Personal belongings accompany Pt. 18:25 Patient left the ED. dsf Signatures: Dispatcher [employer] EDMS Justin Rm RN RN bcMedardo Rider, Juan Reg Bertrand Estrada Brian, MD MD br1 Chanell Velazquez, PUBLIC ADDRESS TECHNICIAN PUBLIC ADDRESS TECHNICIAN ar3 Duyen BravoRN RN ld5 Megan To, PUBLIC ADDRESS TECHNICIAN PUBLIC ADDRESS TECHNICIAN ct3 Estefany Summers RN RN dsf Becka Hernandez RN RN pml Kenealy, Timothy tk Corrections: (The following items were deleted from the chart) 10:53 10:44 87.7 kg Measured; BMI: 30.2; ct3 ct3 MTDD
[2016-08-04 18:35] VITALS: BP 128/60
[2016-08-04 20:00] VITALS: BP 142/63
[2016-08-04] MEDS ORDERED: guaiFENesin/CODEINE SYRUP 5 ML UDC PO PRN (20:00)
[2016-08-04] MEDS ORDERED: NITROGLYCERIN 0.4 MG SUBL TABLET SL PRN (20:00)
--- NOTE | 2016-08-04 20:16 | REP ---
AP portable chest 08/04 16 Indication: Chest pain Comparison: The AP portable chest 07/27/2016, CT chest 04/08/16, chest radiograph 04/08/2016 Findings: There has been a prior median sternotomy. Right ventricular pacer lead is unchanged. Cardiac silhouette is upper normal size .There is cephalization of pulmonary vasculature and interstitial prominence with progression. Findings are consistent with mild interstitial pulmonary edema. Degenerative changes are present in thoracic spine. Impression: prior median sternotomy; cardiac silhouette upper normal size Mild interstitial pulmonary edema Signed by Sonal Cameron MD 08/04/2016 08:08 P
[2016-08-04] MEDS ORDERED: CALCIUM/VITAMIN D 250 MG TABLET PO SCH ×2 (21:00→21:15)
[2016-08-04] MEDS: HumaLOG INSULIN (NovoLOG) PER UNIT SC SCH (21:00)
--- NOTE | 2016-08-04 21:00 | HPE ---
DATE OF ADMISSION: 08/04/2016 PRIMARY CARE PROVIDER: Iliana Barragan. REASON FOR ADMISSION: Sepsis, unknown source. HISTORY OF PRESENT ILLNESS The patient is a 70-year-old male past medical history significant for diabetes, congestive heart failure, history of myocardial infarction (TN), hypertension, hyperlipidemia, who presented to the emergency room today stating his defibrillator went off while he was sitting at rest. He stated he was recently diagnosed with the flu a week ago, completed one course of Tamiflu. In the emergency room he was found to be hypotensive with blood pressure initially 79/41, pulse of 90, had a low-grade temperature 100.3, saturating 98% on three liters. The patient denied any chest pain at this time. He stated he took aspirin en route. Stated that the last time he had his defibrillator checked was three months ago when he was seen by Dr. Mcpherson, his travelift operator. No other symptoms or complaints at this time. The patient was admitted by hospitalist to the intensive care unit (ICU). REVIEW OF SYSTEMS: 12-point review of systems was obtained all of which was negative except for those mentioned above. PAST MEDICAL HISTORY: Notable for 1. Diabetes. 2. Hypertension. 3. Hyperlipidemia. 4. TN. 5. Congestive heart failure. PAST SURGICAL HISTORY: 1. Significant for coronary stents, pacemaker defibrillator insertion. 2. Femoral-popliteal (fem-pop) bypass bilaterally. 3. Coronary artery bypass graft (CABG) two years ago. SOCIAL HISTORY: The patient quit four years ago. Used to smoke one pack per day for the past 57 years. Drinks occasionally. Lives at home alone. He walks with a walker. ALLERGIES: No known drug allergies. HOME MEDICATIONS: - albuterol as needed - aspirin 325 mg by mouth daily - calcium and vitamin D - Plavix 75 daily - insulin Lantus - lisinopril 5 mg by mouth daily - metoprolol 50 mg by mouth daily - nitroglycerin - omeprazole - torsemide FAMILY HISTORY: Noncontributory. PHYSICAL FINDINGS: VITAL SIGNS: Blood pressure right now 96/55, pulse 74, respiratory rate 18, temperature 98.7, pulse oximetry 94% on room air. HEENT: Pupils equal, round, reactive to light and accommodation. NECK: Supple. No jugular venous distention (JVD). LUNGS: Clear to auscultation bilaterally. ABDOMEN: Soft, nontender, nondistended. Extremities: No clubbing, cyanosis. Trace edema. LABORATORY FINDINGS: WBC 25.4, hemoglobin 11.6, hematocrit 34.5, platelet count 311. Sodium 133, potassium 4.5, chloride 94, BUN 55, creatinine 2.5, lactic acid 1.9, glucose 231, troponin 0.05. ASSESSMENT AND PLAN: 1. Sepsis, unknown etiology at this time. Did not receive any antibiotics at this time. Blood and urine cultures are pending as well as a methicillin-resistant Staphylococcus aureus (MRSA) screen. Likely may be due to flu which the patient already completed a course of. We will continue to trend leukocytosis and a C-reactive protein (CRP) and sedimentation rate. We will hold off on antibiotic initiation at this time. Lactic acid was negative. 2. Coronary artery disease status post coronary artery bypass graft (CABG). Continue the patient's aspirin. We will hold the patient's metoprolol due to hypotension. We will resume in the morning if his pressure is more stable. 3. Congestive heart failure. Status post pacemaker defibrillator which went off earlier today. We will defer to primary care provider to consult Dr. Mcpherson in the morning. We will continue to monitor the patient on telemetry. Will continue to trend enzymes. Continue torsemide to the patient's home medication. 4. Shortness of breath, resolved. 5. Leukocytosis may be secondary to reactive process due to influenza which was positive last week. 6. Kidney injury. The patient's baseline creatinine is around 1.6, currently 2.5. We will repeat in the morning. The patient does not appear to be grossly overloaded at this time. We will continue his home diuretics. We will hold lisinopril due to hypotension and acute on chronic kidney disease. 7. Deep venous thrombosis (DVT) prophylaxis. We will start the patient on Lovenox while in bed.
[2016-08-04] MEDS: CALCIUM/VITAMIN D 250 MG TABLET PO SCH (21:26)
[2016-08-04] MEDS: ENOXAPARIN 30 MG/0.3 ML SYR (J1650) SC SCH (21:27)
[2016-08-04] MEDS: PREGABALIN 75 MG CAP(LYRICA) PO SCH (21:27)
[2016-08-04] MEDS ORDERED: DEXTROSE 50% 50 ML SYRINGE IV PRN (22:45)
[2016-08-04] MEDS ORDERED: GLUCOSE 4 GM CHEW TABLET PO PRN (22:45)
[2016-08-04] MEDS ORDERED: GLUCAGON FOR INJ 1 MG VIAL (J1610) SC PRN (22:45)
[2016-08-05] VITALS (7 sets, daily range): BP systolic 120–151; BP diastolic 53–67
[2016-08-05 05:00] LABS: BASO # 0.1 K/mm3 (0.0-0.2); BASO % 0.4 % (0.0-1.0); EOS # 0.3 K/mm3 (0.0-0.50); EOS % 1.8 % (0.0-3.0); LARGE UNSTAINED CELL # 0.2 K/mm3 (0.0-0.4); LARGE UNSTAINED CELL % 0.9 % (0.0-4.0); LYMPH # 1.4 K/mm3 (1.5-4.5); LYMPH % 7.7 % (24.0-44.0); MEAN CORPUSCULAR HEMOGLOBIN 29.3 pg (27.0-33.0); MEAN CORPUSCULAR HGB CONC 33.4 g/dl (32.0-36.5); MEAN CORPUSCULAR VOLUME 87.7 fl (80.0-96.0); MONO # 0.6 K/mm3 (0.0-0.8); MONO % 3.3 % (0.0-5.0); NEUTROPHILS # 15.2 K/mm3 (1.8-7.7); NEUTROPHILS % 85.8 % (36.0-66.0); PLATELET COUNT, AUTOMATED 260 k/mm3 (150-450); RED CELL DISTRIBUTION WIDTH 12.1 % (11.5-14.5); WHITE BLOOD COUNT 17.6 K/mm3 (4.0-10.0)
[2016-08-05 05:06] LABS: ALBUMIN 2.2 GM/DL (3.2-5.2); ALBUMIN/GLOBULIN RATIO 0.52 (1.00-1.93); BILIRUBIN,TOTAL 0.2 MG/DL (0.2-1.0); CALCIUM LEVEL 8.2 MG/DL (8.8-10.2); GLOMERULAR FILTRATION RATE 22.1 (>42); MAGNESIUM LEVEL 2.4 MG/DL (1.8-2.4); POTASSIUM SERUM 4.4 MEQ/L (3.5-5.1); TOTAL PROTEIN 6.4 GM/DL (6.4-8.2)
[2016-08-05 05:18] LABS: ERYTHROCYTE SEDIMENTATION RATE 73 mm/hr (0-20)
[2016-08-05] MEDS ORDERED: NS 1,000 ML IV SCH (07:45)
[2016-08-05] MEDS: CLOPIDOGREL 75 MG TAB PO SCH (08:39)
[2016-08-05] MEDS: OMEPRAZOLE 20 MG CAP PO SCH (08:39)
[2016-08-05] MEDS: HumaLOG INSULIN (NovoLOG) PER UNIT SC SCH ×4 (08:39→21:23)
[2016-08-05] MEDS: CALCIUM/VITAMIN D 250 MG TABLET PO SCH ×2 (08:40→21:23)
[2016-08-05] MEDS: PREGABALIN 75 MG CAP(LYRICA) PO SCH ×2 (08:40→21:23)
[2016-08-05] MEDS: POTASSIUM CHLORIDE 10 MEQ SR TABLET PO SCH (08:40)
[2016-08-05] MEDS: ASPIRIN 325 MG TAB PO SCH (08:40)
[2016-08-05] MEDS: METOPROLOL SUCC (TopROL XL) 50MG **XL** TAB PO SCH (08:41)
[2016-08-05] MEDS ORDERED: TORSEMIDE 100 MG TAB PO SCH (09:00)
[2016-08-05] MEDS: NORCO, ANEXSIA 5/325MG TABLET (HYDROcodone/ACETAMINOPHEN) PO PRN (10:28)
--- NOTE | 2016-08-05 10:39 | CR.PDOC ---
[facility] Cardiology Consultation Date of Consultation 08/05/16 Cadiology Consultation REFERRING PHYSICIAN: Hospitalist REASON FOR REFERRAL: Defibrillator activation, history of CHF and CAD HISTORY OF PRESENT ILLNESS: Mr Drake is a 70-year-old male who presented to the hospital after he states his defibrillator fired when he was home, sitting down and resting. He initially presented with hypotensive blood pressure of 79/ 41, with pulse in the 90s and a temperature of 100.3. He was admitted for sepsis secondary to influenza virus was diagnosed with about a week prior, history of coronary artery disease status post CABG procedure two years prior and CHF. The patient states that he has been in his usual state of health, but two days prior to presentation he started feeling fatigued. He states that one day ago he was laying in bed and felt a sudden "jolt" where his whole body and legs twitched, and he knew his defibrillator had been activated. He then got out of bed, and laid down on his couch where he fell asleep. He states that his neighbor who usually checks on him came over and tried to wake him up, but that he was too fatigued to arouse. His friend then called EMS. As per the patient, EMS also had to "shock" the patient once they arrived. PAST MEDICAL: Hypertension Diabetes History of myocardial infarction hyperlipidemia Congestive heart failure SURGICAL HISTORY: Coronary artery stent placement, pacemaker defibrillator insertion Femoral-popliteal bypass bilaterally Urinary artery bypass graft 2 years ago FAMILY HISTORY: father and brother both suffered [facility]'s SOCIAL HISTORY: Patient quit smoking about 5 years ago, he used to smoke pack a day for about 60 years. He does drink occasionally, he lives at home alone and ambulates with a walker. REVIEW OF SYSTEMS: Cardiovascular: Denies chest pain, palpitations, syncope Respiratory: No wheezing, rhonchi, rales appreciated on exam. Good air expansion bilaterally GI/: Denies changes in bowel or bladder habits, denies hematuria or dysuria HEENT: denies blurred or changed vision or headache PHYSICAL EXAMINATION: VITAL SIGNS: Please see below. GENERAL APPEARANCE: Laying in bed at 45 incline, patient appears comfortable, not labored and in no distress. EYES: EOMI, PERRLA ENT/Mouth: Moist mucus membranes, tongue midline NECK: supple, no JVD appreciated EXTREMITIES: No cyanosis, clubbing, edema appreciated SKIN: intact NEUROLOGIC/PSYCHOLOGIC: No focal deficits appreciated HEART: normal s1 and s2, no murmurs, rubs or gallops appreciated ARTERIAL PULSES: +2 dorsalis pedis b/l, +2 radial b/l LOWER EXTREMITY EDEMA: non appreciable ABDOMEN: NABSx4, non distended, non tender to palpitation, no organomegaly ALLERGIES: Please see below. HOME MEDICATIONS: Please see below. CURRENT MEDICATIONS: Please see below. Electrocardiogram: 08-04-16 shows sinus rhythm with inferior myocardial infarction, probably old, moderate T-wave abnormality potential ischemia. Similar as to prior on 07/27/2016. LABORATORY DATA: Please see below. IMAGIN08-04-16 Duplex U/S LE There is no evidence of deep vein thrombus in the right lower extremity or left lower extremity. Head CT 08-04-16 1. No acute intracranial pathology or hemorrhage. 2. Old small bilateral basal ganglia lacunar infarcts are present. 3. Extensive bilateral carotid siphon calcifications. CXR 08-04-16 prior median sternotomy; cardiac silhouette upper normal size Mild interstitial pulmonary edema ASSESSMENT/PLAN: When patient was examined on bedside this morning he does not appear in distress , he does not appear to be fluid overloaded or grossly edematous. He denied chest pain, palpitations or shortness of breath. Stated his legs have been achy for the past few days, bilaterally in his groin area with radiation down through the back of his thigh and calf muscles. He states his vascular sugeon in [place] ordered a CT of his low back to evaluate for a pinched nerve. He has to see him next week apparently for the results. When he followed up with his tire maintenance technician 3 months prior to presentation, the patient states that his defibrillator was checked and he was told it was working properly. He does have a bit of acute kidney injury on this visit. Blood pressure seems to be stable at 120/60 range with heart rate in the 80s. He is currently afebrile and his white count is 17.6 down from 25.4 one day prior. Would suggest continued anticoagulation with Lovenox and Metoprolol therapy as this seems to be controlling his blood pressure adequately. We will continue to monitor intake and output. He received his home dose of 100 mg of Torsemide and seems to have had 20 mL out in the last 24 hours. Would continue with current care, no further recommendations at this time. Thank you kindly for asking me to participate in the care of your patient. Addendum Luis Miguel MONTOYA: I reviewed patient's record and obtained independent history and exam. Agree with the note above. I interrogated his ICD and no shocks were delivered and no episodes of tachycardia were documented. It is not clear what patient perceived as a shock. I would continue supportive therapy for likely infection. Vital Signs/I&O Vital Signs Date Time Temp Pulse Resp B/P Pulse Ox O2 Delivery O2 Flow Rate FiO2 08/05/16 08:00 Room Air 08/05/16 08:00 97.9 78 24 129/60 94 08/05/16 00:00 1.0 I&O- Last 24 Hours up to 6 AM 08/05/16 06:00 Intake Total 880 ml Output Total 1035 ml Balance -155 ml Laboratory Data Labs 24H Laboratory Tests 2 08/04/16 10:43: White Blood Count 25.4H, Red Blood Count 4.01L, Hemoglobin 11.6L, Hematocrit 34.5L, Mean Corpuscular Volume 85.9, Mean Corpuscular Hemoglobin 29.0, Mean Corpuscular Hemoglobin Concent 33.7, Red Cell Distribution Width 12.1, Platelet Count 311, Neutrophils (%) (Auto) 91.1H, Lymphocytes (%) (Auto) 3.5L, Monocytes (%) (Auto) 3.5, Eosinophils (%) (Auto) 1.2, Basophils (%) (Auto) 0.2, Neutrophils # (Auto) 23.1H, Lymphocytes # (Auto) 0.9L, Monocytes # (Auto) 0.9H, Eosinophils # (Auto) 0.3, Basophils # (Auto) 0.0, Large Unclassified Cells # 0.1 , Large Unclassified Cells % 0.6 08/04/16 11:22: Anion Gap 8, Blood Urea Nitrogen 55H, Creatinine 2.53H, Sodium Level 133L, Potassium Level 4.5, Chloride Level 94L, Carbon Dioxide Level 31, Calcium Level 9.1, Phosphorus Level 4.4, Total Creatine Kinase 166, Creatine Kinase MB 4.3H, Creatine Kinase MB Relative Index 2.59, Glomerular Filtration Rate 26.9L, Lactic Acid Level 1.9, Magnesium Level 2.4, Troponin I 0.05 08/04/16 11:24: Activated Partial Thromboplast Time 30.3, Prothromb Time International Ratio 1.02, Prothrombin Time 13.5 08/04/16 11:42: Urine Amorphous Sediment SMALLH, Urine Appearance CLEAR, Urine Color YELLOW, Urine pH 5.0, Urine Specific [place] 1.008, Urine Protein 3+H, Urine Glucose (UA ) 3+H, Urine Ketones NEGATIVE, Urine Urobilinogen 0.2, Urine Bilirubin NEGATIVE , Urine Leukocyte Esterase NEGATIVE, Urine Bacteria (Auto) NEGATIVE, Urine Blood 1+H, Urine Calcium Carbonate Cryst(Auto) , Urine Calcium Oxalate Cryst ( Auto) , Urine Calcium Phosphate Bre (Auto) , Urine Cellular Casts , Urine Cystine Crystals , Urine Granular Casts (Auto) , Urine Hyaline Casts (Auto) 4, Urine Leucine Crystals , Urine Mucus (Auto) , Urine Nitrite NEGATIVE, Urine Oval Fat Bodies (Auto) , Urine RBC (Auto) 2, Urine Renal Epithelial Cells , Urine Sperm (Auto) , Urine Squamous Epithelial Cells 0, Urine Transitional Epithelial Cells , Urine Trichomonas (Auto) , Urine Triple Phosphate Cryst (Auto ) , Urine Tyrosine Crystals , Urine Uric Acid Crystals (Auto) , Urine WBC (Auto ) 1, Urine Waxy Casts (Auto) , Urine Yeast-Like Cells (Auto) 08/04/16 20:21: Troponin I 0.02# 08/04/16 21:29: Bedside Glucose (Misc Panel) 235H 08/05/16 01:55: Troponin I 0.03# 08/05/16 04:34: Blood Urea Nitrogen 68H, Creatinine 3.00H, Sodium Level 132L, Potassium Level 4.4, Chloride Level 95L, Carbon Dioxide Level 27, Calcium Level 8.2L, Aspartate Amino Transf (AST/SGOT) 13L, Alanine Aminotransferase (ALT/SGPT) 17, Alkaline Phosphatase 90, Total Bilirubin 0.2, Total Protein 6.4, Albumin 2.2L, Albumin/ Globulin Ratio 0.52L, Anion Gap 10, White Blood Count 17.6H, Red Blood Count 3.55L, Hemoglobin 10.4L, Hematocrit 31.1L, Mean Corpuscular Volume 87.7, Mean Corpuscular Hemoglobin 29.3, Mean Corpuscular Hemoglobin Concent 33.4, Red Cell Distribution Width 12.1, Platelet Count 260, Neutrophils (%) (Auto) 85.8H, Lymphocytes (%) (Auto) 7.7L, Monocytes (%) (Auto) 3.3, Eosinophils (%) (Auto) 1.8, Basophils (%) (Auto) 0.4, Neutrophils # (Auto) 15.2H, Lymphocytes # (Auto) 1.4L, Monocytes # (Auto) 0.6, Eosinophils # (Auto) 0.3, Basophils # (Auto) 0.1, C-Reactive Protein, Quantitative 12.00H, Erythrocyte Sedimentation Rate 73H, Glomerular Filtration Rate 22.1L, Large Unclassified Cells # 0.2, Large Unclassified Cells % 0.9, Magnesium Level 2.4 08/05/16 08:10: Troponin I 0.02# CBC/BMP Laboratory Tests 08/04/16 10:43 Red Blood Count 4.01 L, Mean Corpuscular Volume 85.9, Mean Corpuscular Hemoglobin 29.0, Mean Corpuscular Hemoglobin Concent 33.7, Red Cell Distribution Width 12.1, Neutrophils (%) (Auto) 91.1 H, Lymphocytes (%) (Auto) 3.5 L, Monocytes (%) (Auto) 3.5, Eosinophils (%) (Auto) 1.2, Basophils (%) (Auto ) 0.2, Neutrophils # (Auto) 23.1 H, Lymphocytes # (Auto) 0.9 L, Monocytes # ( Auto) 0.9 H, Eosinophils # (Auto) 0.3, Basophils # (Auto) 0.0 08/04/16 11:22 Calcium Level 9.1, Phosphorus Level 4.4, Total Creatine Kinase 166 08/05/16 04:34 Red Blood Count 3.55 L, Mean Corpuscular Volume 87.7, Mean Corpuscular Hemoglobin 29.3, Mean Corpuscular Hemoglobin Concent 33.4, Red Cell Distribution Width 12.1, Neutrophils (%) (Auto) 85.8 H, Lymphocytes (%) (Auto) 7.7 L, Monocytes (%) (Auto) 3.3, Eosinophils (%) (Auto) 1.8, Basophils (%) (Auto ) 0.4, Neutrophils # (Auto) 15.2 H, Lymphocytes # (Auto) 1.4 L, Monocytes # ( Auto) 0.6, Eosinophils # (Auto) 0.3, Basophils # (Auto) 0.1, Calcium Level 8.2 L , Aspartate Amino Transf (AST/SGOT) 13 L, Alanine Aminotransferase (ALT/SGPT) 17 , Alkaline Phosphatase 90, Total Bilirubin 0.2, Total Protein 6.4, Albumin 2.2 L FSBS Laboratory Tests Test 08/04/16 21:29 Range/Units Bedside Glucose (Misc Panel) 235 83-110 MG/DL Microbiology Microbiology 08/04/16 Blood Culture, Received Pending 08/04/16 Blood Culture, Received Pending 08/04/16 MRSA Screen, Received Pending 08/04/16 Urine Culture, Received Pending Home Medications Scheduled Aspirin (Aspirin) 325 Mg Tab 325 MG PO DAILY (Reported) Calcium/Vitamin D (Oyster Shell Calcium 250+ 250-125 mg-Unit) 1 Tab Tab 1 TAB PO BID (Reported) Clopidogrel Bisulfate (Clopidogrel) 75 Mg Tab 75 MG PO DAILY (Reported) Insulin Glargine (Lantus) 1 Units/0.01 Ml Susp 1 DOSE SC BID (Reported) SEE COMMENTS Lisinopril (Lisinopril) 5 Mg Tab 5 MG PO DAILY (Reported) Metoprolol Succinate (Metoprolol Succinate ER) 50 Mg Tab 50 MG PO DAILY ( Reported) Omeprazole (Omeprazole) 40 Mg Cap 40 MG PO DAILY (Reported) Potassium Chloride (Klor-Con M10) 10 Meq Tabcr 10 MEQ PO DAILY (Reported) Pregabalin (Lyrica) 150 Mg Cap 150 MG PO BID (Reported) Torsemide (Torsemide) 100 Mg Tab 100 MG PO DAILY (Reported) Scheduled PRN Albuterol Sulfate (Albuterol Sulfate) 2.5 Mg/3 Ml Nebu 2.5 MG INH QID PRN PRN SHORTNESS OF BREATH (Reported) Guaifenesin/Codeine (Guaifenesin/Codeine 100-10 mg/5Ml) 5 Ml Syrp 5 ML PO Q4H PRN PRN COUGH (Reported) Nitroglycerin (Nitrostat) 0.4 Mg Subl 0.4 MG SL Q5MP PRN PRN CHEST PAIN ( Reported) Oxycodone/Acetaminophen (Percocet 2.5-325 mg) 1 Tab Tab 1 TAB PO Q8H PRN PRN PAIN (Reported) Current Medications Current Medications Acetaminophen (Tylenol) 650 mg STK-MED ONCE As Ordered ; Start 08/04/16 at 11:13 ; Stop 08/04/16 at 11:14; Status DC Acetaminophen/ Hydrocodone Bitart ([place], Anexsia 5/325) 1 tab Q4HP PRN PO MODERATE PAIN (PS 5-7); Start 08/04/16 at 15:15; Stop 08/11/16 at 15:14 Aspirin (Aspirin) 325 mg DAILY PO Last administered on 08/05/16 08:40; Start 08/05/16 at 09:00; Stop 09/04/16 at 08:59 Calcium/Vitamin D (Oscal D) 1 mg BID PO ; Start 08/04/16 at 21:00; Stop at 21:15; Status DC Calcium/Vitamin D (Oscal D) 250 mg BID PO Last administered on 08/05/16 08:40 ; Start 08/04/16 at 21:00; Stop 09/03/16 at 20:59 Calcium/Vitamin D (Oscal D) 250 mg BID PO ; Start 08/04/16 at 21:15; Stop at 21:15; Status DC Clopidogrel Bisulfate (PLAVix) 75 mg DAILY PO Last administered on 08/05/16 08 :39; Start 08/05/16 at 09:00; Stop 09/04/16 at 08:59 Codeine Phosphate/ Guaifenesin (Robitussin Ac) 5 ml Q4H PRN PO COUGH; Start at 20:00; Stop 08/11/16 at 19:59 Dextrose (Dextrose 50%) 25 ml ASDIRECTED PRN IV SEE LABEL COMMENTS; Start 08/04 at 22:45; Stop 09/03/16 at 22:44 Enoxaparin Sodium (Lovenox) 30 mg DAILY@21 SC Last administered on 08/04/16 21 :27; Start 08/04/16 at 21:00; Stop 08/09/16 at 20:59 Glucagon 1 mg 1 mg ASDIRECTED PRN SC SEE LABEL COMMENTS; Start 08/04/16 at 22: 45; Stop 09/03/16 at 22:44 Glucose (Glucose) 16 GM ASDIRECTED PRN PO SEE LABEL COMMENTS; Start 08/04/16 at 22:45; Stop 09/03/16 at 22:44 Home Med (Med Rec Complete!) ASDIRECTED XX ; Start 08/04/16 at 14:30; Stop at 14:30; Status DC Insulin Human Lispro (HumaLOG INSULIN) SEE PROTOCOL TABLE AC SC Last administered on 08/05/16 08:39; Start 08/05/16 at 07:30; Stop 09/04/16 at 07:29 Insulin Human Lispro (HumaLOG INSULIN) SEE PROTOCOL TABLE QHS SC ; Start at 21:00; Stop 09/03/16 at 20:59 Metoprolol Succinate (TopROL XL) 50 mg DAILY PO Last administered on 08/05/16 08:41; Start 08/05/16 at 09:00; Stop 09/04/16 at 08:59 Nitroglycerin (Nitrostat (1/ 150)) 0.4 mg Q5MP PRN SL CHEST PAIN; Start at 20:00; Stop 09/03/16 at 19:59 Omeprazole (PriLOSEC) 40 mg DAILY PO Last administered on 08/05/16 08:39; Start 08/05/16 at 09:00; Stop 09/04/16 at 08:59 Potassium Chloride (Micro-K Extencaps) 10 meq DAILY PO Last administered on 08:40; Start 08/05/16 at 09:00; Stop 09/04/16 at 08:59 Pregabalin (Lyrica) 150 mg BID PO Last administered on 08/05/16 08:40; Start 08/04/16 at 21:00; Stop 08/11/16 at 20:59 Sodium Chloride (Nacl 0.9%) 1,000 ml @ 50 mls/hr Q20H IV Last administered on 08/05/16 07:53; Start 08/05/16 at 07:45; Stop 09/04/16 at 07:44 Torsemide (Demadex) 100 mg DAILY PO ; Start 08/05/16 at 09:00; Stop 08/05/16 at 09:00; Status DC Allergies Allergies: Coded Allergies: No Known Drug Allergy (Verified Allergy, Unknown, 10/19/12) TURKEY (Verified Allergy, Unknown, VOMITING, 12/11/10) GME ATTESTATION GME ATTESTATION My preceptor for this patient encounter was physically present in the building during the encounter and was fully available. As needed, all aspects of the patient interview, examination, medical decision making process, and medical care plan development were reviewed and approved by the preceptor. Preceptor is aware and concurs with the plan as stated in the body of this note and will attest to such by his/her cosignature. NABILA DOUGLAS DO Aug 05, 2016 10:39 Abhijit Mcpherson MD Aug 05, 2016 21:43
--- NOTE | 2016-08-05 14:16 | IPNPDOC ---
Assessment/Plan Date Seen The patient was seen on 08/05/16. Problems Problems: (1) SIRS (systemic inflammatory response syndrome) Status: Acute Problem Text: evidenced by HR 90, temp 100.3, WBC 25, and BP 79/41 upon arrival to ED; recent flu infection but thus far blood and urine cultures are negative; I suspect that this was secondary to dehydration as the patient has a concomitant KOSTAS and has responded to IVF; vitals now stabilized, afebrile, WBC improved to 17; continue to follow up cultures; no antibiotics at this time as no clear infection (2) Acute on chronic kidney failure Status: Acute Problem Text: baseline Cr around mid to upper 1s; Cr upon admission was 2.53, now increased to 3.0; stop torsemide and check FENa; I suspect this is secondary to dehydration/prerenal; start very gentle IVF (3) Defibrillator discharge Status: Acute Problem Text: Dr. Mcpherson consulted; patient denies chest pain; trops were negative (4) CAD (coronary artery disease) Status: Chronic Problem Text: hx of [place] and s/p CABG and stents; no current chest pain; trops negative; continue home ASA, plavix, beta juan daniel; needs to discuss with primary physicians adding a statin (5) HTN (hypertension) Status: Chronic Problem Text: continue home beta juan daniel (6) Diabetes mellitus Status: Chronic Problem Text: patient is unclear on home lantus dosing; SSI while in house and add and adjust levemir accordingly (7) Chronic diastolic CHF (congestive heart failure) Status: Chronic Problem Text: not overloaded; stop home torsemide given KOSTAS Plan / VTE VTE Prophylaxis Ordered?: Yes (lovenox) Plan Advance Directives: DNR Disposition ICU care given hypotension on arrival and defibrillator firing; may be able to be downgraded if BP remains stable and Dr. Mcpherson approves it Subjective Review of Systems CC/HPI The patient is a 70-year-old male admitted with a reason for visit of Sepsis. Events since last encounter patient states he feels much better; no chest pain Pulmonary: Denies: Cough Cardiovascular: Denies: Chest Pain Gastrointestinal: Denies: Vomiting Objective Physical Examination General Exam: Positive: Alert, Cooperative, No Acute Distress Eye Exam: Positive: EOMI, Negative: Sclera icteric ENT Exam: Positive: Mucous membr. moist/pink Neck Exam: Positive: Supple Chest Exam: Positive: Clear to auscultation, Normal air movement Heart Exam: Positive: Rate Normal, Regular Rhythm Abdomen Exam: Positive: Normal bowel sounds, Soft Extremity Exam: Negative: Edema Neuro Exam: Positive: Normal Speech Psych Exam: Positive: Mood NL, Oriented x 3 Vital Signs/I&O Vital Signs Date Time Temp Pulse Resp B/P Pulse Ox O2 Delivery O2 Flow Rate FiO2 08/05/16 12:00 97.0 90 24 133/60 94 Room Air 08/05/16 00:00 1.0 I&O- Last 24 Hours up to 6 AM 08/05/16 06:00 Intake Total 880 ml Output Total 1035 ml Balance -155 ml Laboratory Data Labs 24H Laboratory Tests 2 08/04/16 20:21: Troponin I 0.02# 08/04/16 21:29: Bedside Glucose (Misc Panel) 235H 08/05/16 01:55: Troponin I 0.03# 08/05/16 04:34: Blood Urea Nitrogen 68H, Creatinine 3.00H, Sodium Level 132L, Potassium Level 4.4, Chloride Level 95L, Carbon Dioxide Level 27, Calcium Level 8.2L, Aspartate Amino Transf (AST/SGOT) 13L, Alanine Aminotransferase (ALT/SGPT) 17, Alkaline Phosphatase 90, Total Bilirubin 0.2, Total Protein 6.4, Albumin 2.2L, Albumin/ Globulin Ratio 0.52L, Anion Gap 10, White Blood Count 17.6H, Red Blood Count 3.55L, Hemoglobin 10.4L, Hematocrit 31.1L, Mean Corpuscular Volume 87.7, Mean Corpuscular Hemoglobin 29.3, Mean Corpuscular Hemoglobin Concent 33.4, Red Cell Distribution Width 12.1, Platelet Count 260, Neutrophils (%) (Auto) 85.8H, Lymphocytes (%) (Auto) 7.7L, Monocytes (%) (Auto) 3.3, Eosinophils (%) (Auto) 1.8, Basophils (%) (Auto) 0.4, Neutrophils # (Auto) 15.2H, Lymphocytes # (Auto) 1.4L, Monocytes # (Auto) 0.6, Eosinophils # (Auto) 0.3, Basophils # (Auto) 0.1, C-Reactive Protein, Quantitative 12.00H, Erythrocyte Sedimentation Rate 73H, Glomerular Filtration Rate 22.1L, Large Unclassified Cells # 0.2, Large Unclassified Cells % 0.9, Magnesium Level 2.4 08/05/16 08:10: Troponin I 0.02# 08/05/16 11:47: Bedside Glucose (Misc Panel) 380H CBC/BMP Laboratory Tests 08/05/16 04:34 Calcium Level 8.2 L, Aspartate Amino Transf (AST/SGOT) 13 L, Alanine Aminotransferase (ALT/SGPT) 17, Alkaline Phosphatase 90, Total Bilirubin 0.2, Total Protein 6.4, Albumin 2.2 L, Red Blood Count 3.55 L, Mean Corpuscular Volume 87.7, Mean Corpuscular Hemoglobin 29.3, Mean Corpuscular Hemoglobin Concent 33.4, Red Cell Distribution Width 12.1, Neutrophils (%) (Auto) 85.8 H, Lymphocytes (%) (Auto) 7.7 L, Monocytes (%) (Auto) 3.3, Eosinophils (%) (Auto) 1.8, Basophils (%) (Auto) 0.4, Neutrophils # (Auto) 15.2 H, Lymphocytes # (Auto ) 1.4 L, Monocytes # (Auto) 0.6, Eosinophils # (Auto) 0.3, Basophils # (Auto) 0.1 FSBS Laboratory Tests Test 08/04/16 21:29 08/05/16 11:47 Range/Units Bedside Glucose (Misc Panel) 235 380 83-110 MG/DL Microbiology Microbiology 08/04/16 Blood Culture - Preliminary, Resulted No growth after 24 hours . All specim... 08/04/16 Blood Culture - Preliminary, Resulted No growth after 24 hours . All specim... 08/04/16 MRSA Screen, Received Pending 08/04/16 Urine Culture, Received Pending VARGHESE VELASCO Aug 05, 2016 14:16
[2016-08-05] MEDS: ENOXAPARIN 30 MG/0.3 ML SYR (J1650) SC SCH (21:22)
[2016-08-06] VITALS (7 sets, daily range): BP systolic 142–193; BP diastolic 52–76
[2016-08-06 05:45] LABS: BASO # 0.1 K/mm3 (0.0-0.2); BASO % 0.4 % (0.0-1.0); EOS # 0.3 K/mm3 (0.0-0.50); EOS % 2.1 % (0.0-3.0); LARGE UNSTAINED CELL # 0.1 K/mm3 (0.0-0.4); LYMPH % 6.8 % (24.0-44.0); MEAN CORPUSCULAR HEMOGLOBIN 28.7 pg (27.0-33.0); MEAN CORPUSCULAR HGB CONC 31.9 g/dl (32.0-36.5); MEAN CORPUSCULAR VOLUME 90.1 fl (80.0-96.0); MONO # 0.8 K/mm3 (0.0-0.8); NEUTROPHILS # 12.7 K/mm3 (1.8-7.7); NEUTROPHILS % 84.7 % (36.0-66.0); PLATELET COUNT, AUTOMATED 248 k/mm3 (150-450); RED CELL DISTRIBUTION WIDTH 11.8 % (11.5-14.5)
[2016-08-06 05:54] LABS: ALBUMIN 2.2 GM/DL (3.2-5.2); ALBUMIN/GLOBULIN RATIO 0.47 (1.00-1.93); BILIRUBIN,TOTAL 0.1 MG/DL (0.2-1.0); CALCIUM LEVEL 8.4 MG/DL (8.8-10.2); CREATININE FOR GFR 2.42 MG/DL (0.70-1.30); GLOMERULAR FILTRATION RATE 28.4 (>42); MAGNESIUM LEVEL 2.4 MG/DL (1.8-2.4); TOTAL PROTEIN 6.9 GM/DL (6.4-8.2)
[2016-08-06] MEDS: METOPROLOL SUCC (TopROL XL) 50MG **XL** TAB PO SCH (08:19)
[2016-08-06] MEDS: OMEPRAZOLE 20 MG CAP PO SCH (08:19)
[2016-08-06] MEDS: CLOPIDOGREL 75 MG TAB PO SCH (08:19)
[2016-08-06] MEDS: PREGABALIN 75 MG CAP(LYRICA) PO SCH ×2 (08:19→21:23)
[2016-08-06] MEDS: HumaLOG INSULIN (NovoLOG) PER UNIT SC SCH ×4 (08:19→21:22)
[2016-08-06] MEDS: CALCIUM/VITAMIN D 250 MG TABLET PO SCH ×2 (08:19→21:24)
[2016-08-06] MEDS: ASPIRIN 325 MG TAB PO SCH (08:19)
[2016-08-06] MEDS: POTASSIUM CHLORIDE 10 MEQ SR TABLET PO SCH (08:20)
[2016-08-06] MEDS: LEVEMIR (INSULIN DETEMIR) 1 UNITS/0.01ML SC SCH (08:23)
--- NOTE | 2016-08-06 11:03 | IPNPDOC ---
[facility] Cardiology Progress Note Date of Service/Time The patient was seen on 08/06/16 at 10:49. Cardiology Progress Note SUBJECTIVE: Mr Serrato is a 70 y/o male who was seen and examined at bedside this morning, patient was laying down comfortably in no distress. He denied any chest palpitations, shortness of breath or chest pain but did admit to nagging productive cough. OBJECTIVE: PHYSICAL EXAMINATION: VITAL SIGNS: Please see below. GENERAL APPEARANCE: Laying comfortably in bed watching TV at a slight 30 incline, nonlabored and conversant HEENT: NCAT, EOMI, nares patent bilaterally, moist mucous membranes, tongue midline. LUNGS: Although much improved from one day prior patient still has bibasilar crackles, otherwise no rales or rhonchi appreciated, air expansion is equal b/l HEART: S1, S2, no murmurs, rubs, gallops appreciated. Patient does have JVD measured to 4-5 cm. ABDOMEN: Soft, nontender to palpitation, nondistended. SKIN: intact EXTREMITIES: No swelling, cyanosis, clubbing appreciated NEUROLOGICAL: No focal deficits appreciated PSYCHIATRIC: Appropriate affect LABORATORY WORK: Please see below. ASSESSMENT AND PLAN: Mr Drake appears to be doing very well this morning, he denies shortness of breath but admits to productive cough, however this is also improved from one day prior. His JVD is elevated to 4-5 cm, would be cautious about fluid management on this patient and hydration. IV fluids were discontinued one night prior, agree with this decision. Heart rate has been in the 80s with blood pressure hovering around 150 systolic over 70 diastolic. White blood cell count has come down to 11.1 from one day prior, CRP has also come down to 9.29 from 12 one day prior. It would seem from an infectious standpoint patient is getting better, he is also febrile. Would continue to actively monitor for and treat the patient for infectious process, as patient still does have productive cough and crackles at lung bases bilaterally on physical exam. No further recommendations at this time, we are comfortable with patient being moved from the unit to progressive care. Vital Signs/I&O VS/I&O Vital Signs Date Time Temp Pulse Resp B/P Pulse Ox O2 Delivery O2 Flow Rate FiO2 08/06/16 08:19 82 159/73 08/06/16 08:00 Room Air 08/06/16 08:00 98.0 18 91 08/05/16 00:00 1.0 I&O- Last 24 Hours up to 6 AM 08/06/16 06:00 Intake Total 2600 ml Output Total 2180 ml Balance 420 ml Laboratory Data 24H LABS Laboratory Tests 2 08/05/16 11:47: Bedside Glucose (Misc Panel) 380H 08/05/16 16:57: Bedside Glucose (Misc Panel) 269H 08/05/16 19:35: Urine Random Creatinine 64.5, Urine Random Sodium 40 08/05/16 21:15: Bedside Glucose (Misc Panel) 293H 08/06/16 05:08: Blood Urea Nitrogen 63H, Creatinine 2.42H, Sodium Level 133L, Potassium Level 5.0, Chloride Level 99, Carbon Dioxide Level 25, Calcium Level 8.4L, Aspartate Amino Transf (AST/SGOT) 13L, Alanine Aminotransferase (ALT/SGPT) 19, Alkaline Phosphatase 111, Total Bilirubin 0.1L, Total Protein 6.9, Albumin 2.2L, Albumin/ Globulin Ratio 0.47L, Anion Gap 9, White Blood Count 15.0H, Red Blood Count 3.85L, Hemoglobin 11.1L, Hematocrit 34.7L, Mean Corpuscular Volume 90.1, Mean Corpuscular Hemoglobin 28.7, Mean Corpuscular Hemoglobin Concent 31.9L, Red Cell Distribution Width 11.8, Platelet Count 248, Neutrophils (%) (Auto) 84.7H, Lymphocytes (%) (Auto) 6.8L, Monocytes (%) (Auto) 5.0, Eosinophils (%) (Auto) 2.1, Basophils (%) (Auto) 0.4, Neutrophils # (Auto) 12.7H, Lymphocytes # (Auto) 1.0L, Monocytes # (Auto) 0.8, Eosinophils # (Auto) 0.3, Basophils # (Auto) 0.1, C-Reactive Protein, Quantitative 9.29H, Glomerular Filtration Rate 28.4L, Large Unclassified Cells # 0.1, Large Unclassified Cells % 1.0, Magnesium Level 2.4 08/06/16 06:20: Erythrocyte Sedimentation Rate 95H 08/06/16 07:48: Bedside Glucose (Misc Panel) 361H CBC/BMP Laboratory Tests 08/06/16 05:08 Calcium Level 8.4 L, Aspartate Amino Transf (AST/SGOT) 13 L, Alanine Aminotransferase (ALT/SGPT) 19, Alkaline Phosphatase 111, Total Bilirubin 0.1 L , Total Protein 6.9, Albumin 2.2 L, Red Blood Count 3.85 L, Mean Corpuscular Volume 90.1, Mean Corpuscular Hemoglobin 28.7, Mean Corpuscular Hemoglobin Concent 31.9 L, Red Cell Distribution Width 11.8, Neutrophils (%) (Auto) 84.7 H , Lymphocytes (%) (Auto) 6.8 L, Monocytes (%) (Auto) 5.0, Eosinophils (%) (Auto ) 2.1, Basophils (%) (Auto) 0.4, Neutrophils # (Auto) 12.7 H, Lymphocytes # ( Auto) 1.0 L, Monocytes # (Auto) 0.8, Eosinophils # (Auto) 0.3, Basophils # (Auto ) 0.1 FSBS Laboratory Tests Test 08/05/16 11:47 08/05/16 16:57 08/05/16 21:15 08/06/16 07:48 Range/Units Bedside Glucose (Misc Panel) 380 269 293 361 83-110 MG/DL Microbiology Microbiology 08/04/16 Blood Culture - Preliminary, Resulted No growth after 24 hours . All specim... 08/04/16 Blood Culture - Preliminary, Resulted No growth after 24 hours . All specim... 08/04/16 MRSA Screen - Final, Complete Staph.aureus Methicillin Resis 08/04/16 Urine Culture - Final, Complete GME ATTESTATION GME ATTESTATION My preceptor for this patient encounter was physically present in the building during the encounter and was fully available. As needed, all aspects of the patient interview, examination, medical decision making process, and medical care plan development were reviewed and approved by the preceptor. Preceptor is aware and concurs with the plan as stated in the body of this note and will attest to such by his/her cosignature. NABILA DOUGLAS DO Aug 06, 2016 11:03
--- NOTE | 2016-08-06 12:26 | IPNPDOC ---
Assessment/Plan Date Seen The patient was seen on 08/06/16. Problems Problems: (1) SIRS due to non-infectious process without acute organ dysfunction Status: Acute Problem Text: evidenced by HR 90, temp 100.3, WBC 25, and BP 79/41 upon arrival to ED; recent flu infection but thus far blood and urine cultures are negative; I suspect that this was secondary to dehydration as the patient has a concomitant KOSTAS and has responded to IVF; patient was recently recovering from influenza so had poor appetite and was tired so was not eating or drinking adequately this probably led to his dehydration and KOSTAS. vitals now stabilized, afebrile, WBC improved to 15; continue to follow up cultures; no antibiotics at this time as no clear infection (2) Acute on chronic kidney failure Status: Acute Problem Text: baseline Cr around mid to upper 1s; Cr upon admission was 2.53, now increased to 3.0; stop torsemide and check FENa; I suspect this is secondary to dehydration/prerenal; start very gentle IVF (3) Defibrillator discharge Status: Resolved Problem Text: ICD interogated. ICD did not fire there was no arrhythmia. Patient may have had a myoclonic jerk Dr. Mcpherson consulted; patient denies chest pain; trops were negative (4) CAD (coronary artery disease) Status: Chronic Problem Text: hx of [place] and s/p CABG and stents; no current chest pain; trops negative; continue home ASA, plavix, beta juan daniel; needs to discuss with primary physicians adding a statin (5) HTN (hypertension) Status: Chronic Problem Text: continue home beta juan daniel (6) Diabetes mellitus Status: Chronic Problem Text: patient is unclear on home lantus dosing; SSI while in house and add and adjust levemir accordingly (7) Chronic diastolic CHF (congestive heart failure) Status: Chronic Problem Text: came in dehydrated however developed some fluid overload after iv hydration , NS stopped, will continue to monitor I/O , will continue to hold torsemide (8) Dyslipidemia Status: Chronic (9) GERD (gastroesophageal reflux disease) Status: Chronic Plan / VTE VTE Prophylaxis Ordered?: Yes (lovenox) Plan Advance Directives: DNR Subjective Review of Systems CC/HPI The patient is a 70-year-old male admitted with a reason for visit of Sepsis. Events since last encounter no complaints this am, feeling better, no fever or chills, no cough or phlegm , no nausea or vomiting or diarrhea, no rash , no signs of infection identified. Objective Physical Examination General Exam: Positive: Alert, Cooperative, No Acute Distress Eye Exam: Positive: EOMI, Negative: Sclera icteric ENT Exam: Positive: Mucous membr. moist/pink Neck Exam: Positive: Supple Chest Exam: Positive: Clear to auscultation, Normal air movement Heart Exam: Positive: Rate Normal, Regular Rhythm Abdomen Exam: Positive: Normal bowel sounds, Soft Extremity Exam: Negative: Edema Neuro Exam: Positive: Normal Speech Psych Exam: Positive: Mood NL, Oriented x 3 Vital Signs/I&O Vital Signs Date Time Temp Pulse Resp B/P Pulse Ox O2 Delivery O2 Flow Rate FiO2 08/06/16 12:00 97.7 75 20 150/52 95 Room Air 08/05/16 00:00 1.0 I&O- Last 24 Hours up to 6 AM 08/06/16 05:59 Intake Total 2725 ml Output Total 2255 ml Balance 470 ml Laboratory Data Labs 24H Laboratory Tests 2 08/05/16 16:57: Bedside Glucose (Misc Panel) 269H 08/05/16 19:35: Urine Random Creatinine 64.5, Urine Random Sodium 40 08/05/16 21:15: Bedside Glucose (Misc Panel) 293H 08/06/16 05:08: Blood Urea Nitrogen 63H, Creatinine 2.42H, Sodium Level 133L, Potassium Level 5.0, Chloride Level 99, Carbon Dioxide Level 25, Calcium Level 8.4L, Aspartate Amino Transf (AST/SGOT) 13L, Alanine Aminotransferase (ALT/SGPT) 19, Alkaline Phosphatase 111, Total Bilirubin 0.1L, Total Protein 6.9, Albumin 2.2L, Albumin/ Globulin Ratio 0.47L, Anion Gap 9, White Blood Count 15.0H, Red Blood Count 3.85L, Hemoglobin 11.1L, Hematocrit 34.7L, Mean Corpuscular Volume 90.1, Mean Corpuscular Hemoglobin 28.7, Mean Corpuscular Hemoglobin Concent 31.9L, Red Cell Distribution Width 11.8, Platelet Count 248, Neutrophils (%) (Auto) 84.7H, Lymphocytes (%) (Auto) 6.8L, Monocytes (%) (Auto) 5.0, Eosinophils (%) (Auto) 2.1, Basophils (%) (Auto) 0.4, Neutrophils # (Auto) 12.7H, Lymphocytes # (Auto) 1.0L, Monocytes # (Auto) 0.8, Eosinophils # (Auto) 0.3, Basophils # (Auto) 0.1, C-Reactive Protein, Quantitative 9.29H, Glomerular Filtration Rate 28.4L, Large Unclassified Cells # 0.1, Large Unclassified Cells % 1.0, Magnesium Level 2.4 08/06/16 06:20: Erythrocyte Sedimentation Rate 95H 08/06/16 07:48: Bedside Glucose (Misc Panel) 361H 08/06/16 11:25: Bedside Glucose (Misc Panel) 396H CBC/BMP Laboratory Tests 08/06/16 05:08 Calcium Level 8.4 L, Aspartate Amino Transf (AST/SGOT) 13 L, Alanine Aminotransferase (ALT/SGPT) 19, Alkaline Phosphatase 111, Total Bilirubin 0.1 L , Total Protein 6.9, Albumin 2.2 L, Red Blood Count 3.85 L, Mean Corpuscular Volume 90.1, Mean Corpuscular Hemoglobin 28.7, Mean Corpuscular Hemoglobin Concent 31.9 L, Red Cell Distribution Width 11.8, Neutrophils (%) (Auto) 84.7 H , Lymphocytes (%) (Auto) 6.8 L, Monocytes (%) (Auto) 5.0, Eosinophils (%) (Auto ) 2.1, Basophils (%) (Auto) 0.4, Neutrophils # (Auto) 12.7 H, Lymphocytes # ( Auto) 1.0 L, Monocytes # (Auto) 0.8, Eosinophils # (Auto) 0.3, Basophils # (Auto ) 0.1 FSBS Laboratory Tests Test 08/05/16 16:57 08/05/16 21:15 08/06/16 07:48 08/06/16 11:25 Range/Units Bedside Glucose (Misc Panel) 269 293 361 396 83-110 MG/DL Microbiology Microbiology 08/04/16 Blood Culture - Preliminary, Resulted No Growth after 48 hours. All Specime... 08/04/16 Blood Culture - Preliminary, Resulted No Growth after 48 hours. All Specime... 08/04/16 MRSA Screen - Final, Complete Staph.aureus Methicillin Resis 08/04/16 Urine Culture - Final, Complete FAITH VALDES MD Aug 06, 2016 12:26
[2016-08-06] MEDS: NORCO, ANEXSIA 5/325MG TABLET (HYDROcodone/ACETAMINOPHEN) PO PRN ×2 (17:14→21:23)
--- NOTE | 2016-08-06 19:25 | EDDOCDS ---
Nurse's Notes [facility] Name: Aaron Drake Age: 70 yrs Sex: Male : 1945 Arrival Date: 08/04/2016 Time: 10:31 Bed 4 Private MD: Abhijit Mcpherson MD Diagnosis: Syncope and collapse;Acute pulmonary edema;Hypotension Presentation: 08/04 10:33 Presenting complaint: EMS states: pt states his defibrillator went off. pt was awake, dsf alert and lethargic on EMS arrival. SR on montior. pt denies CP. Pt reports weakness. 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 Adult Sepsis Screening:. Suicide/Homicide risk assessment- the patient denies having any suicidal and/or homicidal ideations and does not present with any other emotional, behavioral or mental health complaints. Status: Patient is not a dispatcher service chief or dependent. Transition of care: patient was not received from another setting of care. 10:33 Acuity: AMY Level 2 dsf 10:33 Method Of Arrival: Ambulance dsf 10:35 Care prior to arrival: See EMS report. Glucose check. 260. dsf 10:35 Adult Sepsis Screening: The patient does not have new or worsening altered mentation. bcj Patient's respiratory rate is less than 22. Systolic blood pressure is less than or equal to 100 (1 point). Patient has a qSOFA score of 1- Negative Sepsis Screen. Triage Assessment: 10:35 General: Appears in no apparent distress, Behavior is cooperative. Pain: Denies pain. dsf The patient is triaged at the bedside. See Assessment in Nurses Notes section of ED record. Neurological: Level of Consciousness is lethargic, Reports weakness. Cardiovascular: Chest pain is denied. Respiratory: Airway is patent Respiratory effort is even, unlabored, Respiratory pattern is regular, symmetrical. Derm: Skin is pink, warm & dry. Historical: - Allergies: turkey; - Home Meds: 1. Lyrica 150mg Oral 2 times per day 2. Percocet 5-325 mg Oral tab 1 tab every 8 hours 3. Prilosec 40 mg Oral cpDR 1 cap once daily 4. furosemide 40 mg Oral tab 1 tab once daily (Last dose: 08/04/2016 07:00) 5. aspirin 325 mg Oral tab 1 tab once daily (Last dose: 08/04/2016 07:00) 6. metoprolol succinate 50 mg Tb24 1 tab once daily (Last dose: 08/04/2016 07:00) 7. potassium chloride 10 mEq Oral cpER 1 cap once daily (Last dose: 08/04/2016 07:00) 8. albuterol sulfate 2.5 mg /3 mL (0.083 %) Nebulizer nebu 4 times per day (Last dose: 08/04/2016 07:00) - PMHx: Diabetes - IDDM: uncontrolled; Hypercholesterolemia; OR; Hypertension; - PSHx: Stents, Coronary; pacemaker/defibrillator insertion; fem/pop bypass bilaterally; CABG; - Social history: Smoking status: Patient states former smoker of tobacco. No barriers to communication noted, The patient speaks fluent Tristanian, Speaks appropriately for age. - : Unable to assess if pt is on anticoagulants. Home medication list is obtained from patients' pharmacy. - Exposure Risk Screening:: None identified. Screenin:09 Screening information is obtained from the patient. Fall risk: No risks identified. bcj Assistance ADL's: requires no assistance with activities of daily living. Abuse/DV Screen: The patient / caregiver reports he/she is: not in a situation that causes fear, pain or injury. Nutritional screening: No deficits noted. Advance Directives: Currently, there is no health care proxy. home support is adequate. Assessment: 10:53 Adult Sepsis Screening: The patient does not have new or worsening altered mentation. dsf Patient's respiratory rate is less than 22. Systolic blood pressure is less than or equal to 100 (1 point). Patient has a qSOFA score of 1- Negative Sepsis Screen. General: Appears in no apparent distress, Behavior is lethargic. Pain: Denies pain. Neurological: Level of Consciousness is lethargic. Cardiovascular: Capillary refill < 3 seconds Heart tones S1 S2 present Rhythm is sinus rhythm No ectopy. Respiratory: Airway is patent Respiratory effort is even, unlabored, Respiratory pattern is regular, symmetrical, Breath sounds with crackles in left posterior lower lobe and right posterior lower lobe Breath sounds are diminished in right upper lobe and left upper lobe Reports cough that is productive. GI: Abdomen is non- distended Bowel sounds present X 4 quads. Abd is soft and non tender X 4 quads. Derm: Skin is pink, warm & dry. 11:58 General: Appears in no apparent distress, Behavior is lethargic . Pain: Denies pain. dsf Neurological: Level of Consciousness is lethargic, Reports weakness. Cardiovascular: Capillary refill < 3 seconds Rhythm is sinus rhythm No ectopy. Respiratory: Airway is patent Respiratory effort is even, unlabored, Respiratory pattern is regular, symmetrical. Derm: Skin is pink, warm & dry. 12:51 Adult Sepsis Screening: The patient does not have new or worsening altered mentation. dsf Patient's respiratory rate is less than 22. Systolic blood pressure is less than or equal to 100 (1 point). Patient has a qSOFA score of 1- Negative Sepsis Screen. General: Appears to be sleeping. Respiratory: Airway is patent Respiratory effort is even, unlabored, Respiratory pattern is regular, symmetrical. Derm: Skin is pink, warm & dry. 13:34 General: Appears to be sleeping. Cardiovascular: Rhythm is sinus rhythm No ectopy. dsf Respiratory: Airway is patent Respiratory effort is even, unlabored, Respiratory pattern is regular, symmetrical. Derm: Skin is pink, warm & dry. 13:40 General: Dr. fountain talking to patient about test results and plan of care . dsf 14:00 Adult Sepsis Screening: The patient does not have new or worsening altered mentation. dsf Patient's respiratory rate is less than 22. Systolic blood pressure is less than or equal to 100 (1 point). Patient has a qSOFA score of 1- Negative Sepsis Screen. General: Appears in no apparent distress, comfortable, Behavior is appropriate for age, cooperative. Pain: Denies pain. Neurological: Level of Consciousness is awake, alert. Cardiovascular: Capillary refill < 3 seconds Heart tones S1 S2 present Rhythm is sinus rhythm No ectopy. Respiratory: Airway is patent Respiratory effort is even, unlabored, Respiratory pattern is regular, symmetrical, Breath sounds with crackles bilaterally. GI: Abdomen is non- distended Bowel sounds present X 4 quads. Abd is soft and non tender X 4 quads. Derm: Skin is pink, warm & dry. 14:19 General: Dr. jacob in room examining patient. Dr. jacob aware of BP . dsf 15:05 General: Appears in no apparent distress, comfortable, to be sleeping. Cardiovascular: dsf Rhythm is sinus rhythm No ectopy. Respiratory: Airway is patent Respiratory effort is even, unlabored, Respiratory pattern is regular, symmetrical, Breath sounds with crackles bilaterally. Derm: Skin is pink, warm & dry. 16:05 Adult Sepsis Screening: The patient does not have new or worsening altered mentation. dsf Patient's respiratory rate is less than 22. Systolic blood pressure is less than or equal to 100 (1 point). Patient has a qSOFA score of 1- Negative Sepsis Screen. General: Appears to be sleeping. Cardiovascular: Rhythm is sinus rhythm No ectopy. Respiratory: Airway is patent Respiratory effort is even, unlabored, Respiratory pattern is regular, symmetrical. Derm: Skin is pink, warm & dry. 17:37 General: Appears in no apparent distress, to be sleeping. Cardiovascular: Capillary dsf refill < 3 seconds Heart tones S1 S2 present Rhythm is sinus rhythm No ectopy. Respiratory: Airway is patent Respiratory effort is even, unlabored, Respiratory pattern is regular, symmetrical, Breath sounds with crackles bilaterally. GI: Abdomen is non- distended Bowel sounds present X 4 quads. Derm: Skin is pink, warm & dry. 18:12 General: Appears in no apparent distress, Behavior is appropriate for age, cooperative. bcj Neurological: Level of Consciousness is awake, alert. Cardiovascular: Capillary refill < 3 seconds Rhythm is sinus rhythm No ectopy. Respiratory: Airway is patent Respiratory effort is even, unlabored, Respiratory pattern is regular, symmetrical. Derm: Skin is pink, warm & dry. Vital Signs: 10:35 Weight 93.89 kg (R); Height 5 ft. 7 in. (170.18 cm); Pain 0/10; dsf 10:44 BP 95 / 52; Pulse 93; Resp 18; Temp 100.3(TE); Pulse Ox 98% on 3 lpm NC; Weight 87.7 kg ct3 (M); 10:48 BP 79 / 41 (auto/); dsf 10:50 Pulse 90 MON; Pulse Ox 93% ; dsf 10:51 BP 91 / 52 (auto/); dsf 10:51 Pulse 90 MON; Pulse Ox 93% ; dsf 11:03 BP 98 / 54 (auto/); dsf 11:03 Pulse 90 MON; Pulse Ox 94% ; dsf 11:44 BP 129 / 77 (auto/); dsf 11:44 Pulse 84 MON; Pulse Ox 97% ; dsf 12:33 BP 77 / 41 (auto/); dsf 12:33 Pulse 78 MON; Pulse Ox 95% ; dsf 12:42 Resp 18; Temp 98.7(TE); ct3 12:42 Pulse 76 MON; Pulse Ox 94% ; dsf 12:42 BP 87 / 47 (auto/); dsf 12:48 BP 84 / 49 (auto/); dsf 12:48 Pulse 76 MON; Pulse Ox 94% ; dsf 13:03 BP 89 / 48 (auto/); dsf 13:04 Pulse 74 MON; Pulse Ox 96% ; dsf 13:11 BP 105 / 53 (auto/); dsf 13:11 Pulse 74 MON; Pulse Ox 97% ; dsf 13:18 BP 96 / 55 (auto/); dsf 13:19 Pulse 76 MON; Pulse Ox 97% ; dsf 13:32 Pulse 76 MON; Pulse Ox 96% ; dsf 13:33 BP 94 / 55 (auto/); dsf 13:48 BP 95 / 56 (auto/); dsf 13:49 Pulse 78 MON; Pulse Ox 97% ; dsf 14:03 BP 89 / 62 (auto/); dsf 14:03 Pulse 76 MON; Pulse Ox 97% ; dsf 14:37 BP 96 / 51 (auto/); dsf 14:37 Pulse 74 MON; Resp 20; Temp 98.0(TE); Pulse Ox 97% on 3 lpm NC; Pain 0/10; dsf 16:39 BP 118 / 55 (auto/); dsf 16:40 Pulse 72 MON; Pulse Ox 97% ; dsf 18:10 BP 123 / 60 (auto/); bcj 18:10 Pulse 74 MON; Resp 20; Pulse Ox 97% on 3 lpm NC; Pain 0/10; bcj 18:10 Temp 97.1(T); bcj 10:44 Body Mass Index 30.28 (87.70 kg, 170.18 cm) ct3 12:42 Dr. Fountain notified new orders recieved dsf Vitals: 10:35 Log In Time N/A - ambulance arrival. f ED Course: 10:32 Patient visited by Chanell Velazquez PCA. ar3 10:32 Abhijit Mcpherson is Private Physician. ar3 10:32 Patient moved to Waiting ar3 10:32 Patient moved to 4 ar3 10:34 Triage Initiated dsf 10:35 The patient / caregiver is instructed regarding the plan of care and ED course. dsf 10:35 O2 via nasal cannula \T\ 3L/min. dsf 10:40 Erika Fountain MD is Attending Physician. br1 10:45 Basic Metabolic Profile Sent. dsf 10:45 CBC with Diff Sent. dsf 10:45 Cardiac Injury Profile Sent. dsf 10:45 Troponin Sent. dsf 10:45 EKG done. (by ED staff). Reviewed by Erika Fountain MD. tk 10:48 Patient visited by Eric Coffey. tk 10:53 Patient visited by Megan To PCA. ct3 10:53 Accompanied by Family Member, Patient has correct armband on for positive ct3 identification. Placed in gown. Bed in low position. Call light in reach. Side rails up X2. monitoring manager on. Pulse ox on. NIBP on. 10:54 Patient visited by Estefany Summers RN. dsf 10:54 Inserted saline lock: 20 gauge in right antecubital area The patient tolerated the dsf procedure well. 11:02 Patient visited by Erika Fountain MD. br1 11:[address] pml 11:17 Patient moved to 4 je3 11:37 Jordan cath inserted 16 Fr. Balloon inflated. Urine specimen collected. returned clear dsf yellow urine. Patient tolerated well. 11:39 [facility] Payment Agreement was scanned into [employer] and attached to record. lg 11:47 Urine Culture Sent. dsf 11:47 Urinalysis Sent. dsf 11:57 BLOOD CULTURES Sent. dsf 11:59 Patient visited by Estefany Summers RN. dsf 12:30 Patient visited by Megan To PCA. ct3 12:33 Patient visited by Eric Coffey. tk 12:33 Assisted with bedpan. tk 12:33 CT Head Without Contrast Returned. EDMS 12:43 Patient visited by Megan To PCA. ct3 12:51 Patient visited by Estefany Summers RN. dsf 13:34 Patient visited by Estefany Summers RN. dsf 13:43 Patient visited by Estefany Summers RN. dsf 13:43 EKG-ADULT Returned. EDMS 14:20 Patient visited by Estefany SummersREGINA. dsf 14:46 Rosemary Jacob is Hospitalizing Provider. br1 15:05 Patient visited by Estefany Summers RN. dsf 16:08 Patient moved to Ultrasound dsf 18:06 Patient moved to 4 bcj 18:08 Duplex, Ext LOWER veins, bilat Returned. EDMS 18:10 No procedures done that require assistance. bcj 22:20 T-Sheet-- Draft Copy was scanned into [employer] and attached to record. klr 08/05 10:49 ECG/EKG was scanned into [employer] and attached to record. gb 10:49 PCR was scanned into [employer] and attached to record. gb 11:02 T-Sheet-- Draft Copy was scanned into [employer] and attached to record. gb Administered Medications: 08/04 11:19 Drug: Acetaminophen 650 mg [acetaminophen 325 mg tablet (2 tabs)] Route: PO; dsf 12:19 Follow up: Response: Temperature is decreased dsf 11:20 Drug: NS 0.9% 500 ml [sodium chloride 0.9 % injection solution] Route: IV; Rate: bolus; dsf Site: right antecubital; 12:40 Follow up: IV Status: Completed infusion; IV Intake: 500ml dsf 11:57 Drug: cefTRIAXone 2 grams [ceftriaxone 1 gram solution for injection] Route: IVPB; dsf Infused Over: 30 mins; Site: right antecubital; 12:40 Follow up: IV Status: Completed infusion; IV Intake: 100ml dsf 12:49 Drug: NS 0.9% 500 ml [sodium chloride 0.9 % injection solution] Route: IV; Rate: bolus; dsf Site: right antecubital; 13:48 Follow up: IV Status: Completed infusion; IV Intake: 500ml ld5 14:40 Follow up: IV Status: Completed infusion; IV Intake: 500ml dsf 14:21 CANCELLED (Dr. Jacob wants to hold fluids ): NS 0.9% 500 ml IV at bolus once dsf Intake: 12:40 IV: 100.00ml; Total: 100.00ml. dsf 12:40 IV: 500.00ml; Total: 600.00ml. dsf 13:48 IV: 500.00ml; Total: 1100.00ml. ld5 14:40 IV: 500.00ml; Total: 1600.00ml. dsf Output: 17:06 Urine: 175.00ml (Jordan); Total: 175.00ml. dsf Order Results: Lab Order: Basic Metabolic Profile; SPEC'M 08/04/16 11:22 Test: GLUCOSE, FASTING; Value: 231; Range: 83-110; Abnormal: Above high normal; Units: MG/DL; Status: F Test: BLOOD UREA NITROGEN; Value: 55; Range: 7-18; Abnormal: Above high normal; Units: MG/DL; Status: F Test: CREATININE FOR GFR; Value: 2.53; Range: 0.70-1.30; Abnormal: Above high normal; Units: MG/DL; Status: F Test: GLOMERULAR FILTRATION RATE; Value: 26.9; Range: >42; Abnormal: Below low normal; Status: F Test: SODIUM LEVEL; Value: 133; Range: 136-145; Abnormal: Below low normal; Units: MEQ/L; Status: F Test: POTASSIUM SERUM; Value: 4.5; Range: 3.5-5.1; Units: MEQ/L; Status: F Test: CHLORIDE LEVEL; Value: 94; Range: 98-107; Abnormal: Below low normal; Units: MEQ/L; Status: F Test: CARBON DIOXIDE LEVEL; Value: 31; Range: 21-32; Units: MEQ/L; Status: F Test: ANION GAP; Value: 8; Range: 8-16; Units: MEQ/L; Status: F Test: CALCIUM LEVEL; Value: 9.1; Range: 8.8-10.2; Units: MG/DL; Status: F Test Note: ; Units are mL/min/1.73 m2 Chronic Kidney Disease Staging per NKF: Stage I & II GFR >=60 Normal to Mildly Decreased Stage III GFR 30-59 Moderately Decreased Stage IV GFR 15-29 Severely Decreased Stage V GFR <15 Very Little GFR Left ESRD GFR <15 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 Lab Order: CBC with Diff; SPEC'M 08/04/16 10:43 Test: WHITE BLOOD COUNT; Value: 25.4; Range: 4.0-10.0; Abnormal: Above high normal; Units: K/mm3; Status: F Test: RED BLOOD COUNT; Value: 4.01; Range: 4.30-6.10; Abnormal: Below low normal; Units: M/mm3; Status: F Test: HEMOGLOBIN; Value: 11.6; Range: 14.0-18.0; Abnormal: Below low normal; Units: g/dl; Status: F Test: HEMATOCRIT; Value: 34.5; Range: 42.0-52.0; Abnormal: Below low normal; Units: %; Status: F Test: MEAN CORPUSCULAR VOLUME; Value: 85.9; Range: 80.0-96.0; Units: fl; Status: F Test: MEAN CORPUSCULAR HEMOGLOBIN; Value: 29.0; Range: 27.0-33.0; Units: pg; Status: F Test: MEAN CORPUSCULAR HGB CONC; Value: 33.7; Range: 32.0-36.5; Units: g/dl; Status: F Test: RED CELL DISTRIBUTION WIDTH; Value: 12.1; Range: 11.5-14.5; Units: %; Status: F Test: PLATELET COUNT, AUTOMATED; Value: 311; Range: 150-450; Units: k/mm3; Status: F Test: NEUTROPHILS %; Value: 91.1; Range: 36.0-66.0; Abnormal: Above high normal; Units: %; Status: F Test: LYMPH %; Value: 3.5; Range: 24.0-44.0; Abnormal: Below low normal; Units: %; Status: F Test: MONO %; Value: 3.5; Range: 0.0-5.0; Units: %; Status: F Test: EOS %; Value: 1.2; Range: 0.0-3.0; Units: %; Status: F Test: BASO %; Value: 0.2; Range: 0.0-1.0; Units: %; Status: F Test: LARGE UNSTAINED CELL %; Value: 0.6; Range: 0.0-4.0; Units: %; Status: F Test: NEUTROPHILS #; Value: 23.1; Range: 1.8-7.7; Abnormal: Above high normal; Units: K/mm3; Status: F Test: LYMPH #; Value: 0.9; Range: 1.5-4.5; Abnormal: Below low normal; Units: K/mm3; Status: F Test: MONO #; Value: 0.9; Range: 0.0-0.8; Abnormal: Above high normal; Units: K/mm3; Status: F Test: EOS #; Value: 0.3; Range: 0.0-0.50; Units: K/mm3; Status: F Test: BASO #; Value: 0.0; Range: 0.0-0.2; Units: K/mm3; Status: F Test: LARGE UNSTAINED CELL #; Value: 0.1; Range: 0.0-0.4; Units: K/mm3; Status: F Lab Order: Cardiac Injury Profile; [facility] 08/04/16 11:22 Test: CPK CREATINE PHOSPHOKINASE; Value: 166; Range: 39-308; Units: U/L; Status: F Test: CK-MB VALUE MASS; Value: 4.3; Range: 0.0-3.6; Abnormal: Above high normal; Units: NG/ML; Status: F Test: MB/CK RELATIVE INDEX; Value: 2.59; Range: < OR =4; Status: F Test Note: ; DIAGNOSIS CRITERIA MMB ng/ml Relative Index (RI) NON-AMI < or = 5 N/A OTERO ZONE > 5 < or = 4 AMI > 5 > 4 Lab Order: Troponin; [facility] 08/04/16 11:22 Test: TROPONIN I; Value: 0.05; Range: < 0.10; Units: NG/ML; Status: F Test Note: ; Troponin I Reference Interval for [employer] LOCI: 99th Percentile= 0.00-0.045 ng/ml Risk Stratification: <= 0.10 ng/ml Decreased Risk for Adverse Clinical Events. 0.10-1.50 ng/ml Increased Risk for Adverse Clinical Events. Evaluation of additional criterion and/or repeat testing in 2-6 hours is suggested to rule out myocardial damage. >= 1.50 ng/ml Indicative of Myocardial Injury. Lab Order: PT/INR; [facility] 08/04/16 11:24 Test: PROTHROMBIN TIME; Value: 13.5; Range: 12.3-14.5; Units: SECONDS; Status: F Test: INR; Value: 1.02; Status: F Test Note: ; THERAPUTIC HUMAN INR VALUES INDICATIONS NORMAL RANGES PROPHYLAXIS/TREATMENT OF: VENOUS THROMBOSIS 2.0-3.0 PULMONARY EMBOLISM 2.0-3.0 PREVENTION OF SYSTEMIC EMBOLISM FROM: TISSUE HEART VALVES 2.0-3.0 ACUTE MYOCARDIAL INFARCTION 2.0-3.0 VALVULAR HEART DISEASE 2.0-3.0 ATRIAL FIBRILLATION 2.0-3.0 MECHANICAL VALVES(HIGH RISK) 2.5-3.5 RECURRENT MYOCARDIAL INFARCTION 2.5-3.5 Lab Order: PTT; [facility] 08/04/16 11:24 Test: PARTIAL THROMBOPLASTIN TIME; Value: 30.3; Range: 26.6-37.1; Units: SECONDS; Status: F Lab Order: MAGNESIUM LEVEL; [facility] 08/04/16 11:22 Test: MAGNESIUM LEVEL; Value: 2.4; Range: 1.8-2.4; Units: MG/DL; Status: F Lab Order: PHOSPHOROUS LEVEL; [facility] 08/04/16 11:22 Test: PHOSPHORUS LEVEL; Value: 4.4; Range: 2.5-4.9; Units: MG/DL; Status: F Lab Order: Lactic Acid (Otero tube on ice); [facility] 08/04/16 11:22 Test: LACTIC ACID LEVEL, LACTATE; Value: 1.9; Range: 0.4-2.0; Units: MMOL/L; Status: F Lab Order: Urinalysis; [facility] 08/04/16 11:42 Test: APPEARANCE, URINE; Value: CLEAR; Range: CLEAR; Status: F Test: COLOR, URINE; Value: YELLOW; Range: YELLOW; Status: F Test: PH,URINE; Value: 5.0; Range: 5.0-9.0; Units: UNITS; Status: F Test: SPECIFIC GRAVITY URINE AUTO; Value: 1.008; Range: 1.002-1.035; Status: F Test: PROTEIN, URINE AUTO; Value: 3+; Range: NEGATIVE; Abnormal: Above high normal; Units: mg/dL; Status: F Test: GLUCOSE, URINE (UA) AUTO; Value: 3+; Range: NEGATIVE; Abnormal: Above high normal; Units: mg/dL; Status: F Test: KETONE, URINE AUTO; Value: NEGATIVE; Range: NEGATIVE; Units: mg/dL; Status: F Test: UROBILINOGEN, URINE AUTO; Value: 0.2; Range: 0.0-2.0; Units: mg/dL; Status: F Test: BILIRUBIN, URINE AUTO; Value: NEGATIVE; Range: NEGATIVE; Status: F Test: NITRITE, URINE AUTO; Value: NEGATIVE; Range: NEGATIVE; Status: F Test: LEUKOCYTE ESTERASE, URINE AUTO; Value: NEGATIVE; Range: NEGATIVE; Status: F Test: BLOOD, URINE BLOOD; Value: 1+; Range: NEGATIVE; Abnormal: Above high normal; Status: F Test: WBC, URINE AUTO; Value: 1; Range: 0-3; Units: /HPF; Status: F Test: RBC, URINE AUTO; Value: 2; Range: 0-3; Units: /HPF; Status: F Test: BACTERIA, URINE AUTO; Value: NEGATIVE; Range: NEGATIVE; Status: F Test: SQUAMOUS EPITHELIAL CELL UR AU; Value: 0; Range: 0-6; Units: /HPF; Status: F Test: HYALINE CAST, URINE AUTO; Value: 4; Range: 0-1; Units: /LPF; Status: F Test: AMORPHOUS SEDIMENT; Value: SMALL; Range: NEGATIVE; Abnormal: Above high normal; Status: F Radiology Order: EKG-ADULT Test: EKG-ADULT REASON FOR EXAMINATION: Chest Pain; Stationary ECG Study; [facility] - ED; ; Test Date: 2016-08-04; Pat Name: AARON DRAKE Department:; Room: -; 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: M 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; : 1945 Requested By: ERIKA Guzman; Order Number: [id number] Reading MD: Deloris Garcia; Measurements; Intervals Hal[place]; Rate: 90 P: 55; MN: 163 QRS: 23; QRSD: 109 T: 137; QT: 360; QTc: 443; Interpretive Statements; SINUS RHYTHM; LEFT ATRIAL ENLARGEMENT; INFERIOR MYOCARDIAL INFARCTION, PROBABLY OLD; MODERATE T-WAVE ABNORMALITY, CONSIDER ISCHEMIA; SIMILAR 07/27/16; Electronically Signed On 08-04-2016 13:16:30 EST by Deloris Garcia; Radiology Order: CT Head Without Contrast Test: CT Head Without Contrast REASON FOR EXAMINATION: CVA >4.5hrs; CTA brain without contrast 08/04/16; ; Indication : CVA greater than 4.5 hours; ; Comparison: None; ; Findings: The ventricles are of normal size and configuration for age. Small; amount of periventricular and subcortical white matter hypodensities are; consistent with small vessel ischemic disease. Old small bilateral basal; ganglia lacunar infarcts are identified. There is no intracranial hemorrhage or; extra-axial fluid collection. There is no midline shift or mass effect.; ; Moderate calcifications are present in the distal vertebral arteries, left; greater than right. Small amount of calcification is seen in the basilar artery.; There are extensive bilateral carotid siphon calcifications.; ; The skull is without fracture . Mucoperiosteal thickening is present within the; right sphenoid sinus. Mastoid sinuses are clear.; ; Impression; 1. No acute intracranial pathology or hemorrhage.; ; 2. Old small bilateral basal ganglia lacunar infarcts are present.; ; 3. Extensive bilateral carotid siphon calcifications.; ; ; ; ; ; ; Signed by; Sonal Cameron MD 08/04/2016 12:15 P; Radiology Order: Duplex, Ext LOWER veins, bilat Test: Duplex, Ext LOWER veins, bilat REASON FOR EXAMINATION: leg pain; Bilateral lower extremity deep vein duplex ultrasound:; ; Comparison is 10/13/2015.; ; The deep veins demonstrate normal compression, normal Doppler color flow and; normal Doppler waveforms with respiration and augmentation at multiple levels; from the popliteal veins to the common femoral veins bilaterally.; ; Impression:; ; There is no evidence of deep vein thrombus in the right lower extremity or left; lower extremity.; ; ; Signed by; Adam Mota MD 08/04/2016 05:31 P; Outcome: 14:47 Decision to Hospitalize by Provider. br1 18:09 CT Study completed. Admission hand-off: Report called to Angelica TAPIA. jaquelin 18:11 Discharge Assessment: Patient awake, alert and oriented x 3. No cognitive and/or bcj functional deficits noted. Patient verbalized understanding of disposition instructions. patient administered narcotics - no. The following High Risk Discharge criteria are identified: None. Admitted to ICU accompanied by nurse, accompanied by tech, family with patient, via stretcher, with oxygen, on monitor, with chart. Condition: stable. Property :Personal belongings accompany Pt. 18:25 Patient left the ED. dsf Signatures: Dispatcher [employer] EDJustin Qureshi RN RN bcj Barnhardt, Gloria, Medardo Truong, Reg Reg lg Tristanian, Bertrand je3 Erika Fountain MD MD br1 Chanell Velazquez, CLINICAL RESEARCH ASSOCIATE CLINICAL RESEARCH ASSOCIATE ar3 Duyen Bravo,RN RN ld5 Megan To, CLINICAL RESEARCH ASSOCIATE CLINICAL RESEARCH ASSOCIATE ct3 Estefany Summers RN RN dsBecka Wong RN RN Eric Nino Kathie klr Corrections: (The following items were deleted from the chart) 10:53 10:44 87.7 kg Measured; BMI: 30.2; ct3 ct3 Chart Complete MTDD
--- NOTE | 2016-08-06 19:25 | EDDOCDS ---
Physician Documentation [facility] Name: Aaron Drake Age: 70 yrs Sex: Male : 1945 Arrival Date: 08/04/2016 Time: 10:31 Bed 4 Private MD: Abhijit Mcpherson MD Disposition: 08/04/16 14:47 Hospitalization ordered by Rosemary Jacob for Inpatient Admission. Preliminary diagnosis are Syncope and collapse, Acute pulmonary edema, Hypotension. - Bed requested for M ICU. - Status is Inpatient Admission. dsf - Condition is Stable. - Problem is new. - Symptoms are unchanged. Historical: - Allergies: turkey; - Home Meds: 1. Lyrica 150mg Oral 2 times per day 2. Percocet 5-325 mg Oral tab 1 tab every 8 hours 3. Prilosec 40 mg Oral cpDR 1 cap once daily 4. furosemide 40 mg Oral tab 1 tab once daily (Last dose: 08/04/2016 07:00) 5. aspirin 325 mg Oral tab 1 tab once daily (Last dose: 08/04/2016 07:00) 6. metoprolol succinate 50 mg Tb24 1 tab once daily (Last dose: 08/04/2016 07:00) 7. potassium chloride 10 mEq Oral cpER 1 cap once daily (Last dose: 08/04/2016 07:00) 8. albuterol sulfate 2.5 mg /3 mL (0.083 %) Nebulizer nebu 4 times per day (Last dose: 08/04/2016 07:00) - PMHx: Diabetes - IDDM: uncontrolled; Hypercholesterolemia; NM; Hypertension; - PSHx: Stents, Coronary; pacemaker/defibrillator insertion; fem/pop bypass bilaterally; CABG; - Social history: Smoking status: Patient states former smoker of tobacco. No barriers to communication noted, The patient speaks fluent Swedish, Speaks appropriately for age. - : Unable to assess if pt is on anticoagulants. Home medication list is obtained from patients' pharmacy. - Exposure Risk Screening:: None identified. Vital Signs: 08/04 10:35 Weight 93.89 kg / 206.99 lbs (R); Height 5 ft. 7 in. (170.18 cm); Pain 0/10; dsf 10:44 BP 95 / 52; Pulse 93; Resp 18; Temp 100.3(TE); Pulse Ox 98% on 3 lpm NC; Weight 87.7 kg ct3 / 193.35 lbs (M); 10:48 BP 79 / 41 (auto/); dsf 10:50 Pulse 90 MON; Pulse Ox 93% ; dsf 10:51 BP 91 / 52 (auto/); dsf 10:51 Pulse 90 MON; Pulse Ox 93% ; dsf 11:03 BP 98 / 54 (auto/); dsf 11:03 Pulse 90 MON; Pulse Ox 94% ; dsf 11:44 BP 129 / 77 (auto/); dsf 11:44 Pulse 84 MON; Pulse Ox 97% ; dsf 12:33 BP 77 / 41 (auto/); dsf 12:33 Pulse 78 MON; Pulse Ox 95% ; dsf 12:42 Resp 18; Temp 98.7(TE); ct3 12:42 Pulse 76 MON; Pulse Ox 94% ; dsf 12:42 BP 87 / 47 (auto/); dsf 12:48 BP 84 / 49 (auto/); dsf 12:48 Pulse 76 MON; Pulse Ox 94% ; dsf 13:03 BP 89 / 48 (auto/); dsf 13:04 Pulse 74 MON; Pulse Ox 96% ; dsf 13:11 BP 105 / 53 (auto/); dsf 13:11 Pulse 74 MON; Pulse Ox 97% ; dsf 13:18 BP 96 / 55 (auto/); dsf 13:19 Pulse 76 MON; Pulse Ox 97% ; dsf 13:32 Pulse 76 MON; Pulse Ox 96% ; dsf 13:33 BP 94 / 55 (auto/); dsf 13:48 BP 95 / 56 (auto/); dsf 13:49 Pulse 78 MON; Pulse Ox 97% ; dsf 14:03 BP 89 / 62 (auto/); dsf 14:03 Pulse 76 MON; Pulse Ox 97% ; dsf 14:37 BP 96 / 51 (auto/); dsf 14:37 Pulse 74 MON; Resp 20; Temp 98.0(TE); Pulse Ox 97% on 3 lpm NC; Pain 0/10; dsf 16:39 BP 118 / 55 (auto/); dsf 16:40 Pulse 72 MON; Pulse Ox 97% ; dsf 18:10 BP 123 / 60 (auto/); bcj 18:10 Pulse 74 MON; Resp 20; Pulse Ox 97% on 3 lpm NC; Pain 0/10; bcj 18:10 Temp 97.1(T); bcj 10:44 Body Mass Index 30.28 (87.70 kg, 170.18 cm) ct3 12:42 Dr. Griffith notified new orders recieved dsf MDM: 10:36 Painter Aircraft/Pulse Ox/q 30 min VS ordered. br1 10:36 IV Saline Lock ordered. br1 10:36 Rhythm Strip to chart ordered. br1 10:36 Undress patient appropriately for examination ordered. br1 10:38 Basic Metabolic Profile Ordered. EDMS 10:38 CBC with Diff Ordered. EDMS 10:38 Cardiac Injury Profile Ordered. EDMS 10:38 Troponin Ordered. EDMS 10:38 portable chest Ordered. EDMS 10:39 ECG WITH READING ER PHYS+CARDIAG ordered. EDMS 10:47 PT/INR Ordered. EDMS 10:47 PTT Ordered. EDMS 10:51 MAGNESIUM LEVEL Ordered. EDMS 10:52 PHOSPHOROUS LEVEL Ordered. EDMS 11:02 NS 0.9% 500 ml IV at bolus once ordered. br1 11:02 -Blood Culture (Adults Only), peripheral from different site, or from device/port/PICC br1 etc. if present ordered. 11:03 Lactic Acid (Otero tube on ice) Ordered. EDMS 11:03 -Blood Culture Ordered. EDMS 11:03 Acetaminophen Tablet 650 mg PO once ordered. br1 11:04 -Blood Culture (Adults Only), peripheral from different site, or from device/port/PICC ar3 etc. if present complete. 11:04 Jordan ordered. br1 11:04 CBC with Diff Reviewed. br1 11:04 CT Head Without Contrast Ordered. EDMS 11:05 BLOOD CULTURES Ordered. EDMS 11:05 Urine Culture Ordered. EDMS 11:05 Urinalysis Ordered. EDMS 11:05 cefTRIAXone 2 grams IVPB once over 30 mins; dilute in 50mL of NS or D5W ordered. br1 11:09 BED REQUEST+ADM ordered. EDMS 11:39 [facility] Payment Agreement was scanned into [employer] and attached to record. lg 11:47 Financial registration complete. lg 12:09 Basic Metabolic Profile Reviewed. br1 12:09 Cardiac Injury Profile Reviewed. br1 12:09 Urinalysis Reviewed. br1 12:09 Troponin Reviewed. br1 12:09 PT/INR Reviewed. br1 12:09 PTT Reviewed. br1 12:09 MAGNESIUM LEVEL Reviewed. br1 12:09 PHOSPHOROUS LEVEL Reviewed. br1 12:09 Lactic Acid (Otero tube on ice) Reviewed. br1 12:51 NS 0.9% 500 ml IV at bolus once ordered. dsf 15:09 Duplex, Ext LOWER veins, bilat Ordered. EDMS 15:10 Admission / Observation Status ordered. EDMS 15:10 CONSISTENT CARBOHYDRATES ordered. EDMS 16:11 MRSA SCREEN Ordered. EDMS 22:20 T-Sheet-- Draft Copy was scanned into [employer] and attached to record. klr 08/05 10:49 ECG/EKG was scanned into [employer] and attached to record. gb 10:49 PCR was scanned into [employer] and attached to record. gb 11:02 T-Sheet-- Draft Copy was scanned into [employer] and attached to record. gb Administered Medications: 08/04 11:19 Drug: Acetaminophen 650 mg [acetaminophen 325 mg tablet (2 tabs)] Route: PO; dsf 12:19 Follow up: Response: Temperature is decreased dsf 11:20 Drug: NS 0.9% 500 ml [sodium chloride 0.9 % injection solution] Route: IV; Rate: bolus; dsf Site: right antecubital; 12:40 Follow up: IV Status: Completed infusion; IV Intake: 500ml dsf 11:57 Drug: cefTRIAXone 2 grams [ceftriaxone 1 gram solution for injection] Route: IVPB; dsf Infused Over: 30 mins; Site: right antecubital; 12:40 Follow up: IV Status: Completed infusion; IV Intake: 100ml dsf 12:49 Drug: NS 0.9% 500 ml [sodium chloride 0.9 % injection solution] Route: IV; Rate: bolus; dsf Site: right antecubital; 13:48 Follow up: IV Status: Completed infusion; IV Intake: 500ml ld5 14:40 Follow up: IV Status: Completed infusion; IV Intake: 500ml dsf 14:21 CANCELLED (Dr. Jacob wants to hold fluids ): NS 0.9% 500 ml IV at bolus once dsf Signatures: Dispatcher [employer] EDMS Darcie, Priscilla, Reg Reg Medardo Arzate, Reg Reg lg Sanjay Griffith MD MD br1 Chanell Velazquez, BRINELL TESTER BRINELL TESTER ar3 Estefany Summers RN RN dsf Fany Enciso Laura RN ld5 The chart was reviewed and I authenticate all verbal orders and agree with the evaluation and treatment provided.Corrections: (The following items were deleted from the chart) 10:51 10:47 MAGNESIUM LEVEL+LAB ordered. EDMS EDMS 10:51 10:47 PHOSPHOROUS LEVEL+LAB ordered. EDMS EDMS 14:21 14:16 NS 0.9% 500 ml IV at bolus once ordered. [email or web address] maria c Attachments: 11:39 [facility] Payment Agreement lg 08/05 10:49 ECG/EKG gb 11:02 T-Sheet-- Draft Copy gb Chart Complete MTDD
--- NOTE | 2016-08-06 19:25 | EDDOCDS ---
Physician Documentation [facility] Name: Aaron Drake Age: 70 yrs Sex: Male : 1945 Arrival Date: 08/04/2016 Time: 10:31 Bed 4 Private MD: Abhijit Mcpherson MD Disposition: 08/04/16 14:47 Hospitalization ordered by Rosemary Jacob for Inpatient Admission. Preliminary diagnosis are Syncope and collapse, Acute pulmonary edema, Hypotension. - Bed requested for M ICU. - Status is Inpatient Admission. dsf - Condition is Stable. - Problem is new. - Symptoms are unchanged. Historical: - Allergies: turkey; - Home Meds: 1. Lyrica 150mg Oral 2 times per day 2. Percocet 5-325 mg Oral tab 1 tab every 8 hours 3. Prilosec 40 mg Oral cpDR 1 cap once daily 4. furosemide 40 mg Oral tab 1 tab once daily (Last dose: 08/04/2016 07:00) 5. aspirin 325 mg Oral tab 1 tab once daily (Last dose: 08/04/2016 07:00) 6. metoprolol succinate 50 mg Tb24 1 tab once daily (Last dose: 08/04/2016 07:00) 7. potassium chloride 10 mEq Oral cpER 1 cap once daily (Last dose: 08/04/2016 07:00) 8. albuterol sulfate 2.5 mg /3 mL (0.083 %) Nebulizer nebu 4 times per day (Last dose: 08/04/2016 07:00) - PMHx: Diabetes - IDDM: uncontrolled; Hypercholesterolemia; GA; Hypertension; - PSHx: Stents, Coronary; pacemaker/defibrillator insertion; fem/pop bypass bilaterally; CABG; - Social history: Smoking status: Patient states former smoker of tobacco. No barriers to communication noted, The patient speaks fluent Serbian, Speaks appropriately for age. - : Unable to assess if pt is on anticoagulants. Home medication list is obtained from patients' pharmacy. - Exposure Risk Screening:: None identified. Vital Signs: 08/04 10:35 Weight 93.89 kg / 206.99 lbs (R); Height 5 ft. 7 in. (170.18 cm); Pain 0/10; dsf 10:44 BP 95 / 52; Pulse 93; Resp 18; Temp 100.3(TE); Pulse Ox 98% on 3 lpm NC; Weight 87.7 kg ct3 / 193.35 lbs (M); 10:48 BP 79 / 41 (auto/); dsf 10:50 Pulse 90 MON; Pulse Ox 93% ; dsf 10:51 BP 91 / 52 (auto/); dsf 10:51 Pulse 90 MON; Pulse Ox 93% ; dsf 11:03 BP 98 / 54 (auto/); dsf 11:03 Pulse 90 MON; Pulse Ox 94% ; dsf 11:44 BP 129 / 77 (auto/); dsf 11:44 Pulse 84 MON; Pulse Ox 97% ; dsf 12:33 BP 77 / 41 (auto/); dsf 12:33 Pulse 78 MON; Pulse Ox 95% ; dsf 12:42 Resp 18; Temp 98.7(TE); ct3 12:42 Pulse 76 MON; Pulse Ox 94% ; dsf 12:42 BP 87 / 47 (auto/); dsf 12:48 BP 84 / 49 (auto/); dsf 12:48 Pulse 76 MON; Pulse Ox 94% ; dsf 13:03 BP 89 / 48 (auto/); dsf 13:04 Pulse 74 MON; Pulse Ox 96% ; dsf 13:11 BP 105 / 53 (auto/); dsf 13:11 Pulse 74 MON; Pulse Ox 97% ; dsf 13:18 BP 96 / 55 (auto/); dsf 13:19 Pulse 76 MON; Pulse Ox 97% ; dsf 13:32 Pulse 76 MON; Pulse Ox 96% ; dsf 13:33 BP 94 / 55 (auto/); dsf 13:48 BP 95 / 56 (auto/); dsf 13:49 Pulse 78 MON; Pulse Ox 97% ; dsf 14:03 BP 89 / 62 (auto/); dsf 14:03 Pulse 76 MON; Pulse Ox 97% ; dsf 14:37 BP 96 / 51 (auto/); dsf 14:37 Pulse 74 MON; Resp 20; Temp 98.0(TE); Pulse Ox 97% on 3 lpm NC; Pain 0/10; dsf 16:39 BP 118 / 55 (auto/); dsf 16:40 Pulse 72 MON; Pulse Ox 97% ; dsf 18:10 BP 123 / 60 (auto/); bcj 18:10 Pulse 74 MON; Resp 20; Pulse Ox 97% on 3 lpm NC; Pain 0/10; bcj 18:10 Temp 97.1(T); bcj 10:44 Body Mass Index 30.28 (87.70 kg, 170.18 cm) ct3 12:42 Dr. Griffith notified new orders recieved dsf MDM: 10:36 Office Support Assistant/Pulse Ox/q 30 min VS ordered. br1 10:36 IV Saline Lock ordered. br1 10:36 Rhythm Strip to chart ordered. br1 10:36 Undress patient appropriately for examination ordered. br1 10:38 Basic Metabolic Profile Ordered. EDMS 10:38 CBC with Diff Ordered. EDMS 10:38 Cardiac Injury Profile Ordered. EDMS 10:38 Troponin Ordered. EDMS 10:38 portable chest Ordered. EDMS 10:39 ECG WITH READING ER PHYS+CARDIAG ordered. EDMS 10:47 PT/INR Ordered. EDMS 10:47 PTT Ordered. EDMS 10:51 MAGNESIUM LEVEL Ordered. EDMS 10:52 PHOSPHOROUS LEVEL Ordered. EDMS 11:02 NS 0.9% 500 ml IV at bolus once ordered. br1 11:02 -Blood Culture (Adults Only), peripheral from different site, or from device/port/PICC br1 etc. if present ordered. 11:03 Lactic Acid (Otero tube on ice) Ordered. EDMS 11:03 -Blood Culture Ordered. EDMS 11:03 Acetaminophen Tablet 650 mg PO once ordered. br1 11:04 -Blood Culture (Adults Only), peripheral from different site, or from device/port/PICC ar3 etc. if present complete. 11:04 Jordan ordered. br1 11:04 CBC with Diff Reviewed. br1 11:04 CT Head Without Contrast Ordered. EDMS 11:05 BLOOD CULTURES Ordered. EDMS 11:05 Urine Culture Ordered. EDMS 11:05 Urinalysis Ordered. EDMS 11:05 cefTRIAXone 2 grams IVPB once over 30 mins; dilute in 50mL of NS or D5W ordered. br1 11:09 BED REQUEST+ADM ordered. EDMS 11:39 [facility] Payment Agreement was scanned into [employer] and attached to record. lg 11:47 Financial registration complete. lg 12:09 Basic Metabolic Profile Reviewed. br1 12:09 Cardiac Injury Profile Reviewed. br1 12:09 Urinalysis Reviewed. br1 12:09 Troponin Reviewed. br1 12:09 PT/INR Reviewed. br1 12:09 PTT Reviewed. br1 12:09 MAGNESIUM LEVEL Reviewed. br1 12:09 PHOSPHOROUS LEVEL Reviewed. br1 12:09 Lactic Acid (Otero tube on ice) Reviewed. br1 12:51 NS 0.9% 500 ml IV at bolus once ordered. dsf 15:09 Duplex, Ext LOWER veins, bilat Ordered. EDMS 15:10 Admission / Observation Status ordered. EDMS 15:10 CONSISTENT CARBOHYDRATES ordered. EDMS 16:11 MRSA SCREEN Ordered. EDMS 22:20 T-Sheet-- Draft Copy was scanned into [employer] and attached to record. klr 08/05 10:49 [facility] record. gb 10:49 PCR [facility] and attached to record. gb 11:02 T-Sheet-- Draft Copy was scanned into [employer] and attached to record. gb Administered Medications: 08/04 11:19 Drug: Acetaminophen 650 mg [acetaminophen 325 mg tablet (2 tabs)] Route: PO; dsf 12:19 Follow up: Response: Temperature is decreased dsf 11:20 Drug: NS 0.9% 500 ml [sodium chloride 0.9 % injection solution] Route: IV; Rate: bolus; dsf Site: right antecubital; 12:40 Follow up: IV Status: Completed infusion; IV Intake: 500ml dsf 11:57 Drug: cefTRIAXone 2 grams [ceftriaxone 1 gram solution for injection] Route: IVPB; dsf Infused Over: 30 mins; Site: right antecubital; 12:40 Follow up: IV Status: Completed infusion; IV Intake: 100ml dsf 12:49 Drug: NS 0.9% 500 ml [sodium chloride 0.9 % injection solution] Route: IV; Rate: bolus; dsf Site: right antecubital; 13:48 Follow up: IV Status: Completed infusion; IV Intake: 500ml ld5 14:40 Follow up: IV Status: Completed infusion; IV Intake: 500ml dsf 14:21 CANCELLED (Dr. Jacob wants to hold fluids ): NS 0.9% 500 ml IV at bolus once dsf Signatures: Dispatcher [employer] EDMS Darcie, Priscilla, Reg Reg Medardo Arzate, Reg Reg lg Sanjay Griffith MD MD br1 Chanell Velazquez, GASKET SUPERVISOR GASKET SUPERVISOR ar3 Estefany Summers RN RN dsf Fany Enciso Laura RN ld5 The chart was reviewed and I authenticate all verbal orders and agree with the evaluation and treatment provided.Corrections: (The following items were deleted from the chart) 10:51 10:47 MAGNESIUM LEVEL+LAB ordered. EDMS EDMS 10:51 10:47 PHOSPHOROUS LEVEL+LAB ordered. EDMS EDMS 14:21 14:16 NS 0.9% 500 ml IV at bolus once ordered. [email or web address] maria c Attachments: 11:39 [facility] Payment Agreement lg 08/05 10:49 ECG/EKG gb 11:02 T-Sheet-- Draft Copy gb Chart Complete MTDD
[2016-08-06] MEDS ORDERED: NICOTINE 14 MG/24 HR TRANSDERMAL TD ONE (21:15)
[2016-08-06] MEDS: ENOXAPARIN 30 MG/0.3 ML SYR (J1650) SC SCH (21:22)
[2016-08-07] VITALS (7 sets, daily range): BP systolic 126–177; BP diastolic 56–91
[2016-08-07 06:01] LABS: BASO % 0.3 % (0.0-1.0); EOS # 0.3 K/mm3 (0.0-0.50); EOS % 2.1 % (0.0-3.0); LARGE UNSTAINED CELL # 0.2 K/mm3 (0.0-0.4); LARGE UNSTAINED CELL % 1.3 % (0.0-4.0); LYMPH % 6.5 % (24.0-44.0); MEAN CORPUSCULAR HEMOGLOBIN 28.7 pg (27.0-33.0); MEAN CORPUSCULAR HGB CONC 32.7 g/dl (32.0-36.5); MEAN CORPUSCULAR VOLUME 87.7 fl (80.0-96.0); MONO # 0.6 K/mm3 (0.0-0.8); NEUTROPHILS # 12.7 K/mm3 (1.8-7.7); NEUTROPHILS % 85.8 % (36.0-66.0); PLATELET COUNT, AUTOMATED 222 k/mm3 (150-450); RED CELL DISTRIBUTION WIDTH 11.9 % (11.5-14.5); WHITE BLOOD COUNT 14.8 K/mm3 (4.0-10.0)
[2016-08-07 06:14] LABS: ALBUMIN 2.1 GM/DL (3.2-5.2); ALBUMIN/GLOBULIN RATIO 0.55 (1.00-1.93); ALKALINE PHOSPHATASE 116 U/L (45-117); ALT/SGPT 17 U/L (12-78); ANION GAP 6 MEQ/L (8-16); AST/SGOT 11 U/L (15-37); BILIRUBIN,TOTAL 0.2 MG/DL (0.2-1.0); BLOOD UREA NITROGEN 53 MG/DL (7-18); CALCIUM LEVEL 7.7 MG/DL (8.8-10.2); CARBON DIOXIDE LEVEL 28 MEQ/L (21-32); CHLORIDE LEVEL 103 MEQ/L (98-107); CREATININE FOR GFR 2.05 MG/DL (0.70-1.30); GLOMERULAR FILTRATION RATE 34.3 (>42); GLUCOSE, FASTING 260 MG/DL (83-110); MAGNESIUM LEVEL 2.4 MG/DL (1.8-2.4); SODIUM LEVEL 137 MEQ/L (136-145); TOTAL PROTEIN 5.9 GM/DL (6.4-8.2)
[2016-08-07 06:20] LABS: POTASSIUM SERUM 5.3 MEQ/L (3.5-5.1)
[2016-08-07 06:31] LABS: ERYTHROCYTE SEDIMENTATION RATE 107 mm/hr (0-20)
[2016-08-07] MEDS: HumaLOG INSULIN (NovoLOG) PER UNIT SC SCH ×4 (07:30→20:38)
[2016-08-07] MEDS: CLOPIDOGREL 75 MG TAB PO SCH (09:00)
[2016-08-07] MEDS: POTASSIUM CHLORIDE 10 MEQ SR TABLET PO SCH (09:00)
[2016-08-07] MEDS: LEVEMIR (INSULIN DETEMIR) 1 UNITS/0.01ML SC SCH ×2 (09:00→09:34)
--- NOTE | 2016-08-07 09:02 | IPNPDOC ---
Assessment/Plan Date Seen The patient was seen on 08/07/16. Problems Problems: (1) SIRS-noninf w ac org dys Status: Acute Problem Text: evidenced by HR 90, temp 100.3, WBC 25, and BP 79/41 upon arrival to ED; recent flu infection but thus far blood and urine cultures are negative; I suspect that this was secondary to dehydration as the patient has a concomitant KOSTAS and has responded to IVF; patient was recently recovering from influenza so had poor appetite and was tired so was not eating or drinking adequately this probably led to his dehydration and KOSTAS. vitals now stabilized, afebrile, WBC improved to 15; continue to follow up cultures; no antibiotics at this time as no clear infection will get CT chest as having low grade fevers. (2) Acute on chronic kidney failure Status: Acute Problem Text: baseline Cr around mid to upper 1s; Cr upon admission was 2.53, now increased to 3.0; stop torsemide and check FENa; I suspect this is secondary to dehydration/prerenal; start very gentle IVF (3) Defibrillator discharge Status: Resolved Problem Text: ICD interogated. ICD did not fire there was no arrhythmia. Patient may have had a myoclonic jerk Dr. Mcpherson consulted; patient denies chest pain; trops were negative (4) CAD (coronary artery disease) Status: Chronic Problem Text: hx of NC and s/p CABG and stents; no current chest pain; trops negative; continue home ASA, plavix, beta juan daniel; needs to discuss with primary physicians adding a statin (5) HTN (hypertension) Status: Chronic Problem Text: continue home beta juan daniel (6) Diabetes mellitus Status: Chronic Problem Text: patient is unclear on home lantus dosing; SSI while in house and add and adjust levemir accordingly (7) Chronic diastolic CHF (congestive heart failure) Status: Chronic Problem Text: came in dehydrated however developed some fluid overload after iv hydration , NS stopped, will continue to monitor I/O , will continue to hold torsemide (8) Dyslipidemia Status: Chronic (9) GERD (gastroesophageal reflux disease) Status: Chronic Plan / VTE VTE Prophylaxis Ordered?: Yes (lovenox) Plan Advance Directives: DNR Subjective Review of Systems CC/HPI The patient is a 70-year-old male admitted with a reason for visit of Sepsis. Events since last encounter patient had tried to get out of bed by himself during the night and slipped to the floor on his knees, did not sustain any trauma , had a low grade temp this morning, appears to be more sleepy than yesterday and has myoclonic jerky movements of the body. no chest pain or cough , no abdominal pain , nausea or vomiting, Objective Physical Examination General Exam: Positive: Alert, Cooperative, No Acute Distress Eye Exam: Positive: EOMI, Negative: Sclera icteric ENT Exam: Positive: Mucous membr. moist/pink Neck Exam: Positive: Supple Chest Exam: Positive: Clear to auscultation, Normal air movement Heart Exam: Positive: Rate Normal, Regular Rhythm Abdomen Exam: Positive: Normal bowel sounds, Soft Extremity Exam: Negative: Edema Neuro Exam: Positive: Normal Speech Psych Exam: Positive: Mood NL, Oriented x 3 Vital Signs/I&O Vital Signs Date Time Temp Pulse Resp B/P Pulse Ox O2 Delivery O2 Flow Rate FiO2 08/07/16 08:00 99.0 88 21 129/83 91 Room Air 08/05/16 00:00 1.0 I&O- Last 24 Hours up to 6 AM 08/07/16 06:00 Intake Total 2220 ml Output Total 1860 ml Balance 360 ml Laboratory Data Labs 24H Laboratory Tests 2 08/06/16 11:25: Bedside Glucose (Misc Panel) 396H 08/06/16 17:08: Bedside Glucose (Misc Panel) 344H 08/06/16 20:28: Bedside Glucose (Misc Panel) 361H 08/07/16 05:27: Blood Urea Nitrogen 53H, Creatinine 2.05H, Sodium Level 137, Potassium Level 5.3H, Chloride Level 103, Carbon Dioxide Level 28, Calcium Level 7.7L, Aspartate Amino Transf (AST/SGOT) 11L, Alanine Aminotransferase (ALT/SGPT) 17, Alkaline Phosphatase 116, Total Bilirubin 0.2#, Total Protein 5.9L, Albumin 2.1L , Albumin/Globulin Ratio 0.55L, Anion Gap 6L, White Blood Count 14.8H, Red Blood Count 3.51L, Hemoglobin 10.1L, Hematocrit 30.8L, Mean Corpuscular Volume 87.7, Mean Corpuscular Hemoglobin 28.7, Mean Corpuscular Hemoglobin Concent 32.7 , Red Cell Distribution Width 11.9, Platelet Count 222, Neutrophils (%) (Auto) 85.8H, Lymphocytes (%) (Auto) 6.5L, Monocytes (%) (Auto) 4.0, Eosinophils (%) ( Auto) 2.1, Basophils (%) (Auto) 0.3, Neutrophils # (Auto) 12.7H, Lymphocytes # ( Auto) 1.0L, Monocytes # (Auto) 0.6, Eosinophils # (Auto) 0.3, Basophils # (Auto ) 0.0, C-Reactive Protein, Quantitative 10.10H, Erythrocyte Sedimentation Rate 107H, Glomerular Filtration Rate 34.3L, Large Unclassified Cells # 0.2, Large Unclassified Cells % 1.3, Magnesium Level 2.4 08/07/16 07:00: CBC/BMP Laboratory Tests 08/07/16 05:27 Calcium Level 7.7 L, Aspartate Amino Transf (AST/SGOT) 11 L, Alanine Aminotransferase (ALT/SGPT) 17, Alkaline Phosphatase 116, Total Bilirubin 0.2 # , Total Protein 5.9 L, Albumin 2.1 L, Red Blood Count 3.51 L, Mean Corpuscular Volume 87.7, Mean Corpuscular Hemoglobin 28.7, Mean Corpuscular Hemoglobin Concent 32.7, Red Cell Distribution Width 11.9, Neutrophils (%) (Auto) 85.8 H, Lymphocytes (%) (Auto) 6.5 L, Monocytes (%) (Auto) 4.0, Eosinophils (%) (Auto) 2.1, Basophils (%) (Auto) 0.3, Neutrophils # (Auto) 12.7 H, Lymphocytes # (Auto ) 1.0 L, Monocytes # (Auto) 0.6, Eosinophils # (Auto) 0.3, Basophils # (Auto) 0.0 FSBS Laboratory Tests Test 08/06/16 11:25 08/06/16 17:08 08/06/16 20:28 Range/Units Bedside Glucose (Misc Panel) 396 344 361 83-110 MG/DL Microbiology Microbiology 08/04/16 Blood Culture - Preliminary, Resulted No Growth after 48 hours. All Specime... 08/04/16 Blood Culture - Preliminary, Resulted No Growth after 48 hours. All Specime... 08/04/16 MRSA Screen - Final, Complete Staph.aureus Methicillin Resis 08/04/16 Urine Culture - Final, Complete FAITH VALDES MD Aug 07, 2016 09:02
[2016-08-07 09:25] LABS: ABG BASE EXCESS -1.9 (-2.0-2.0); ABG HCO3 23.5 MEQ/L (22.0-26.0); ABG PARTIAL PRESSURE O2 59.5 mmHg (75.0-100.0); ABG STANDARD HCO3 22.7 MEQ/L (22.0-26.0); ABG TOTAL CO2 24.8 MEQ/L (23.0-31.0); ABG pH (ARTERIAL) 7.356 UNITS (7.350-7.450)
[2016-08-07] MEDS: NICOTINE 14 MG/24 HR TRANSDERMAL TD SCH (09:32)
[2016-08-07] MEDS: ASPIRIN 325 MG TAB PO SCH (09:33)
[2016-08-07] MEDS: METOPROLOL SUCC (TopROL XL) 50MG **XL** TAB PO SCH (09:33)
[2016-08-07] MEDS: CALCIUM/VITAMIN D 250 MG TABLET PO SCH ×2 (09:33→20:37)
[2016-08-07] MEDS: PREGABALIN 75 MG CAP(LYRICA) PO SCH ×2 (09:33→20:37)
[2016-08-07] MEDS: OMEPRAZOLE 20 MG CAP PO SCH (09:33)
--- NOTE | 2016-08-07 09:41 | IPNPDOC ---
[facility] Cardiology Progress Note Date of Service/Time The patient was seen on 08/07/16 at 09:34. Cardiology Progress Note SUBJECTIVE: Mr. Drake is a 70 y/o male who is seen and examined at bedside this morning, he appears to be doing well, has no active complaints aside from the productive cough that he has had for the past few days, but he says this too was getting better. Denies any chest pain, palpitations or chest pressure. OBJECTIVE: PHYSICAL EXAMINATION: VITAL SIGNS: Please see below. GENERAL APPEARANCE: Comfortable, conversant and pleasant. HEENT: nares patent bilaterally, tongue midline, moist mucous membranes.EOMI. NCAT. LUNGS: Faint crackles appreciated at bilateral bases, otherwise no wheezing, rhonchi or rales appreciated. Good air expansion bilaterally HEART: Normal S1, S2, no murmurs, gallops, rubs appreciated heart rate in the 70 's. ABDOMEN: [id number], soft, nondistended, nontender to palpitation, no organomegaly appreciated SKIN: Dry but intact EXTREMITIES: No cyanosis, clubbing or edema appreciated NEUROLOGICAL: No focal deficits appreciated PSYCHIATRIC: Affect is appropriate LABORATORY WORK: Please see below. ASSESSMENT AND PLAN: Mr Drake is doing well this morning, he unfortunately does still have elevated blood pressure in the 170 to 190 systolic over 70 diastolic, would suggest diuretic therapy per patient in the future for blood pressure control. His creatinine one day prior was 2.42, unfortunately labs for this morning are still pending. He has had very low-grade temperatures however blood and urine cultures so far have been negative, white count has come down to 14.8 from 15 one day prior, CRP is elevated minimally from 9.9-10.10, primary team has ordered chest CT for further evaluation. It is suspected that his increasing creatinine was due to dehydration as patient described decreased oral intake for a few days prior to presentation due to not feeling well from influenza virus. His torsemide has been held. He continues to be on aspirin, Plavix and beta juan daniel. Would continue well current medical management, no further recommendations at this time. Vital Signs/I&O VS/I&O Vital Signs Date Time Temp Pulse Resp B/P Pulse Ox O2 Delivery O2 Flow Rate FiO2 08/07/16 08:00 99.0 88 21 129/83 91 Room Air 08/05/16 00:00 1.0 I&O- Last 24 Hours up to 6 AM 08/07/16 06:00 Intake Total 2220 ml Output Total 1860 ml Balance 360 ml Laboratory Data 24H LABS Laboratory Tests 2 08/06/16 11:25: Bedside Glucose (Misc Panel) 396H 08/06/16 17:08: Bedside Glucose (Misc Panel) 344H 08/06/16 20:28: Bedside Glucose (Misc Panel) 361H 08/07/16 05:27: Blood Urea Nitrogen 53H, Creatinine 2.05H, Sodium Level 137, Potassium Level 5.3H, Chloride Level 103, Carbon Dioxide Level 28, Calcium Level 7.7L, Aspartate Amino Transf (AST/SGOT) 11L, Alanine Aminotransferase (ALT/SGPT) 17, Alkaline Phosphatase 116, Total Bilirubin 0.2#, Total Protein 5.9L, Albumin 2.1L , Albumin/Globulin Ratio 0.55L, Anion Gap 6L, White Blood Count 14.8H, Red Blood Count 3.51L, Hemoglobin 10.1L, Hematocrit 30.8L, Mean Corpuscular Volume 87.7, Mean Corpuscular Hemoglobin 28.7, Mean Corpuscular Hemoglobin Concent 32.7 , Red Cell Distribution Width 11.9, Platelet Count 222, Neutrophils (%) (Auto) 85.8H, Lymphocytes (%) (Auto) 6.5L, Monocytes (%) (Auto) 4.0, Eosinophils (%) ( Auto) 2.1, Basophils (%) (Auto) 0.3, Neutrophils # (Auto) 12.7H, Lymphocytes # ( Auto) 1.0L, Monocytes # (Auto) 0.6, Eosinophils # (Auto) 0.3, Basophils # (Auto ) 0.0, C-Reactive Protein, Quantitative 10.10H, Erythrocyte Sedimentation Rate 107H, Glomerular Filtration Rate 34.3L, Large Unclassified Cells # 0.2, Large Unclassified Cells % 1.3, Magnesium Level 2.4 08/07/16 07:00: 08/07/16 09:13: Arterial Blood pH 7.356, Arterial Blood Partial Pressure CO2 43.0, Arterial Blood Partial Pressure O2 59.5L, Arterial Blood Total CO2 24.8, Arterial Blood HCO3 23.5, Arterial Blood Base Excess -1.9, Arterial Blood Oxygen Saturation 90.8L, Blood Gas Bicarbonate Standard 22.7 CBC/BMP Laboratory Tests 08/07/16 05:27 Calcium Level 7.7 L, Aspartate Amino Transf (AST/SGOT) 11 L, Alanine Aminotransferase (ALT/SGPT) 17, Alkaline Phosphatase 116, Total Bilirubin 0.2 # , Total Protein 5.9 L, Albumin 2.1 L, Red Blood Count 3.51 L, Mean Corpuscular Volume 87.7, Mean Corpuscular Hemoglobin 28.7, Mean Corpuscular Hemoglobin Concent 32.7, Red Cell Distribution Width 11.9, Neutrophils (%) (Auto) 85.8 H, Lymphocytes (%) (Auto) 6.5 L, Monocytes (%) (Auto) 4.0, Eosinophils (%) (Auto) 2.1, Basophils (%) (Auto) 0.3, Neutrophils # (Auto) 12.7 H, Lymphocytes # (Auto ) 1.0 L, Monocytes # (Auto) 0.6, Eosinophils # (Auto) 0.3, Basophils # (Auto) 0.0 FSBS Laboratory Tests Test 08/06/16 11:25 08/06/16 17:08 08/06/16 20:28 Range/Units Bedside Glucose (Misc Panel) 396 344 361 83-110 MG/DL Microbiology Microbiology 08/04/16 Blood Culture - Preliminary, Resulted No Growth after 48 hours. All Specime... 08/04/16 Blood Culture - Preliminary, Resulted No Growth after 48 hours. All Specime... 08/04/16 MRSA Screen - Final, Complete Staph.aureus Methicillin Resis 08/04/16 Urine Culture - Final, Complete GME ATTESTATION GME ATTESTATION My preceptor for this patient encounter was physically present in the building during the encounter and was fully available. As needed, all aspects of the patient interview, examination, medical decision making process, and medical care plan development were reviewed and approved by the preceptor. Preceptor is aware and concurs with the plan as stated in the body of this note and will attest to such by his/her cosignature. NABILA DOUGLAS DO Aug 07, 2016 09:41
--- NOTE | 2016-08-07 09:47 | REP ---
CT STUDY OF THE CHEST WITHOUT IV CONTRAST: HISTORY: Shortness of breath. Comparison chest CT study is from April 08, 2016. This showed a 10 mm left upper lobe nodule. CT FINDINGS: Preliminary workplace relations adviser radiograph and CT images demonstrate median sternotomy wires and a unipolar right heart pacemaker via the left side. Cardiomegaly is observed. There is a small quantity of bilateral pleural fluid. Some patchy pleural calcification is seen in the left base as before. Vascular calcification is noted including coronary artery vascular calcification bilaterally. No pericardial effusion is seen. There are scattered subcarinal and mediastinal lymph nodes again noted unchanged. None of these is pathologically enlarged. The 10 mm noncalcified pulmonary nodule noted previously is again noted in the left perihilar region unchanged. No other pulmonary nodule or mass lesion is seen. Interstitial markings are somewhat prominent in the bases bilaterally. There is a hazy 7 mm new opacity in the right lower lobe. There is a little pleural thickening in the major fissure in the right base which is unchanged. There is mild motion unsharpness on today's images. The central pulmonary arteries are somewhat prominent question pulmonary arterial hypertension or vascular congestion. No adrenal lesion is seen. The visualized upper abdominal structures are unremarkable. IMPRESSION: Cardiomegaly with pacemaker and some pulmonary vascular congestion. Interstitial markings are prominent in the bases and there are small bilateral effusions compatible with mild CHF pattern. There is a stable 10 mm noncalcified pulmonary nodule in the left upper lobe on image number 34 of 106 series 201. A new oval-shaped nodular opacity 7 mm in diameter is seen on page 44 in the right lower lobe. No focal infiltrate is seen. Extensive vascular calcification is again noted as before. Signed by Edgard Marion MD 08/07/2016 06:32 P
[2016-08-07] MEDS ORDERED: ALBUTEROL SULFATE 2.5 MG/0.5 ML INH NEB SOLN INH PRN (20:00)
[2016-08-07] MEDS: ENOXAPARIN 30 MG/0.3 ML SYR (J1650) SC SCH (20:38)
[2016-08-08 02:00] VITALS: BP 138/74
[2016-08-08 06:00] VITALS: BP 158/72
[2016-08-08 06:37] LABS: BASO # 0.2 K/mm3 (0.0-0.2); BASO % 1.3 % (0.0-1.0); EOS # 0.2 K/mm3 (0.0-0.50); EOS % 1.5 % (0.0-3.0); LARGE UNSTAINED CELL # 0.2 K/mm3 (0.0-0.4); LARGE UNSTAINED CELL % 1.4 % (0.0-4.0); LYMPH # 1.3 K/mm3 (1.5-4.5); LYMPH % 7.2 % (24.0-44.0); MEAN CORPUSCULAR HEMOGLOBIN 28.6 pg (27.0-33.0); MEAN CORPUSCULAR HGB CONC 31.5 g/dl (32.0-36.5); MEAN CORPUSCULAR VOLUME 90.7 fl (80.0-96.0); MONO # 0.8 K/mm3 (0.0-0.8); MONO % 5.3 % (0.0-5.0); NEUTROPHILS % 83.4 % (36.0-66.0); PLATELET COUNT, AUTOMATED 216 k/mm3 (150-450); RED CELL DISTRIBUTION WIDTH 12.8 % (11.5-14.5); WHITE BLOOD COUNT 15.6 K/mm3 (4.0-10.0)
[2016-08-08 06:53] LABS: ALBUMIN/GLOBULIN RATIO 0.43 (1.00-1.93); BILIRUBIN,TOTAL 0.3 MG/DL (0.2-1.0); CALCIUM LEVEL 8.3 MG/DL (8.8-10.2); CREATININE FOR GFR 1.96 MG/DL (0.70-1.30); GLOMERULAR FILTRATION RATE 36.2 (>42); MAGNESIUM LEVEL 2.5 MG/DL (1.8-2.4); TOTAL PROTEIN 6.7 GM/DL (6.4-8.2)
[2016-08-08 07:00] LABS: POTASSIUM SERUM 5.5 MEQ/L (3.5-5.1)
[2016-08-08] MEDS: IPRATROPIUM 0.5MG/ALBUTEROL 2.5MG INH SOL UD 3ML (DUONEB)(J7620) NEB SCH ×4 (08:00→22:54)
[2016-08-08] MEDS: NICOTINE 14 MG/24 HR TRANSDERMAL TD SCH (08:19)
[2016-08-08] MEDS: ASPIRIN 325 MG TAB PO SCH (08:19)
[2016-08-08] MEDS: CALCIUM/VITAMIN D 250 MG TABLET PO SCH ×2 (08:20→20:43)
[2016-08-08] MEDS: PREGABALIN 75 MG CAP(LYRICA) PO SCH ×2 (08:20→20:43)
[2016-08-08] MEDS: CLOPIDOGREL 75 MG TAB PO SCH (08:20)
[2016-08-08] MEDS: OMEPRAZOLE 20 MG CAP PO SCH (08:20)
[2016-08-08] MEDS: METOPROLOL SUCC (TopROL XL) 50MG **XL** TAB PO SCH (08:20)
[2016-08-08] MEDS: POTASSIUM CHLORIDE 10 MEQ SR TABLET PO SCH (08:20)
[2016-08-08] MEDS: LEVEMIR (INSULIN DETEMIR) 1 UNITS/0.01ML SC SCH (08:21)
[2016-08-08] MEDS: HumaLOG INSULIN (NovoLOG) PER UNIT SC SCH ×4 (08:22→20:44)
[2016-08-08 08:24] LABS: TOTAL PROTEIN 5.9 GM/DL (6.4-8.2)
[2016-08-08] MEDS ORDERED: FUROSEMIDE 40 MG/4 ML VIAL (J1940) IV ONE (09:30)
--- NOTE | 2016-08-08 09:45 | IPNPDOC ---
[facility] Cardiology Progress Note Date of Service/Time The patient was seen on 08/08/16 at 09:34. Cardiology Progress Note SUBJECTIVE: Mr Drake is a 70 y/o male who was seen and examined at bedside this morning, he was sitting upright in his hospital bed eating breakfast, was pleasant and conversant and in no distress. OBJECTIVE: Patient was seen and examined at bedside, in no distress. Denied chest pain, palpitations or SOB. He seems to be doing well, still has a bit of a productive cough. PHYSICAL EXAMINATION: VITAL SIGNS: Please see below. GENERAL APPEARANCE: Sitting upright in bed eating, was pleasant, conversant and non-labored HEENT:NCAT, EOMI, nares patent bilaterally, moist mucous membranes, tongue midline. LUNGS: Diffuse crackles heard throughout lung ramos, good air expansion bilaterally, no rales, rhonchi appreciated. HEART: normal S1, S2, no murmurs, rubs or gallops appreciated. JVD 4-5 cm. ABDOMEN: soft, non distended SKIN: intact EXTREMITIES: no edema, cyanosis, clubbing appreciated. NEUROLOGICAL: no focal deficit appreciated PSYCHIATRIC: affect is appropriate LABORATORY WORK: Please see below. ASSESSMENT AND PLAN: Mr. Drake appears to be doing well this morning, has no active complaints except for persistent productive cough, says he thinks that this is improving. Will order incentive spirometry for patient. On physical exam JVD was noted to be 4-5 cm, seems a bit fluid overloaded, would suggest beginning diuretic therapy for patient of 80 mg IV Lasix 1, creatine improved today from 2.42 to 1.96, we will repeat BMP this afternoon. Patient was noted to have potassium of 5.5, we will discontinue potassium supplement. Would continue to hold off on LESLY inhibitor medical therapy at this time, no further recommendations. Vital Signs/I&O VS/I&O Vital Signs Date Time Temp Pulse Resp B/P Pulse Ox O2 Delivery O2 Flow Rate FiO2 08/08/16 08:20 85 158/72 08/08/16 06:00 97.9 19 95 Room Air 08/05/16 00:00 1.0 I&O- Last 24 Hours up to 6 AM 08/08/16 06:00 Intake Total 2380 ml Output Total 525 ml Balance 1855 ml Laboratory Data 24H LABS Laboratory Tests 2 08/07/16 11:50: Bedside Glucose (Misc Panel) 291H 1/25/17 16:29: Bedside Glucose (Misc Panel) 279H 08/07/16 20:30: Bedside Glucose (Misc Panel) 348H 08/08/16 06:06: Blood Urea Nitrogen 51H, Creatinine 1.96H, Sodium Level 137, Potassium Level 5.5H, Chloride Level 102, Carbon Dioxide Level 27, Calcium Level 8.3L, Aspartate Amino Transf (AST/SGOT) 15, Alanine Aminotransferase (ALT/SGPT) 23, Alkaline Phosphatase 148H, Total Bilirubin 0.3, Total Protein 6.7, Albumin 2.0L , Albumin/Globulin Ratio 0.43L, Anion Gap 8, White Blood Count 15.6H, Red Blood Count 3.30L, Hemoglobin 9.4L, Hematocrit 29.9L, Mean Corpuscular Volume 90.7, Mean Corpuscular Hemoglobin 28.6, Mean Corpuscular Hemoglobin Concent 31.5L, Red Cell Distribution Width 12.8, Platelet Count 216, Neutrophils (%) (Auto) 83.4H, Lymphocytes (%) (Auto) 7.2L, Monocytes (%) (Auto) 5.3H, Eosinophils (%) ( Auto) 1.5, Basophils (%) (Auto) 1.3H, Neutrophils # (Auto) 13.0H, Lymphocytes # (Auto) 1.3L, Monocytes # (Auto) 0.8, Eosinophils # (Auto) 0.2, Basophils # (Auto ) 0.2, Glomerular Filtration Rate 36.2L, Large Unclassified Cells # 0.2, Large Unclassified Cells % 1.4, Magnesium Level 2.5H CBC/BMP Laboratory Tests 08/08/16 06:06 Calcium Level 8.3 L, Aspartate Amino Transf (AST/SGOT) 15, Alanine Aminotransferase (ALT/SGPT) 23, Alkaline Phosphatase 148 H, Total Bilirubin 0.3 , Total Protein 6.7, Albumin 2.0 L, Red Blood Count 3.30 L, Mean Corpuscular Volume 90.7, Mean Corpuscular Hemoglobin 28.6, Mean Corpuscular Hemoglobin Concent 31.5 L, Red Cell Distribution Width 12.8, Neutrophils (%) (Auto) 83.4 H , Lymphocytes (%) (Auto) 7.2 L, Monocytes (%) (Auto) 5.3 H, Eosinophils (%) ( Auto) 1.5, Basophils (%) (Auto) 1.3 H, Neutrophils # (Auto) 13.0 H, Lymphocytes # (Auto) 1.3 L, Monocytes # (Auto) 0.8, Eosinophils # (Auto) 0.2, Basophils # ( Auto) 0.2 FSBS Laboratory Tests Test 08/07/16 11:50 08/07/16 16:29 08/07/16 20:30 Range/Units Bedside Glucose (Misc Panel) 291 279 348 83-110 MG/DL Microbiology Microbiology 08/04/16 Blood Culture - Preliminary, Resulted No Growth after 72 hours. All specime... 08/04/16 Blood Culture - Preliminary, Resulted No Growth after 72 hours. All specime... 08/07/16 MRSA Screen - Final, Complete Staph.aureus Methicillin Resis 08/04/16 MRSA Screen - Final, Complete Staph.aureus Methicillin Resis 08/04/16 Urine Culture - Final, Complete GME ATTESTATION GME ATTESTATION My preceptor for this patient encounter was physically present in the building during the encounter and was fully available. As needed, all aspects of the patient interview, examination, medical decision making process, and medical care plan development were reviewed and approved by the preceptor. Preceptor is aware and concurs with the plan as stated in the body of this note and will attest to such by his/her cosignature. NABILA DOUGLAS DO Aug 08, 2016 09:45
[2016-08-08 10:00] VITALS: BP 167/67
[2016-08-08] MEDS ORDERED: FUROSEMIDE 100 MG/10 ML VIAL (J1940) IV ONE ×2 (10:00→10:15)
--- NOTE | 2016-08-08 10:09 | IPNPDOC ---
Assessment/Plan Date Seen The patient was seen on 08/08/16. Problems Problems: (1) SIRS-noninf w ac org dys Status: Acute Problem Text: evidenced by HR 90, temp 100.3, WBC 25, and BP 79/41 upon arrival to ED; recent flu infection but thus far blood and urine cultures are negative; I suspect that this was secondary to dehydration as the patient has a concomitant KOSTAS and has responded to IVF; patient was recently recovering from influenza so had poor appetite and was tired so was not eating or drinking adequately this probably led to his dehydration and KOSTAS. vitals now stabilized, afebrile, WBC improved to 15; continue to follow up cultures; no antibiotics at this time as no clear infection will get CT chest as having low grade fevers. (2) Acute on chronic kidney failure Status: Acute Problem Text: baseline Cr around mid to upper 1s; Cr upon admission was 2.53, now increased to 3.0; I suspect this is secondary to dehydration/prerenal; Now improving will restart lasix. seems to be getting mildly fluid overloaded. (3) Defibrillator discharge Status: Resolved Problem Text: ICD interogated. ICD did not fire there was no arrhythmia. Patient may have had a myoclonic jerk Dr. Mcpherson consulted; patient denies chest pain; trops were negative (4) CAD (coronary artery disease) Status: Chronic Problem Text: hx of GA and s/p CABG and stents; no current chest pain; trops negative; continue home ASA, plavix, beta juan daniel; needs to discuss with primary physicians adding a statin (5) HTN (hypertension) Status: Chronic Problem Text: continue home beta juan daniel (6) Diabetes mellitus Status: Chronic Problem Text: patient is unclear on home lantus dosing; SSI while in house and add and adjust levemir accordingly (7) Chronic diastolic CHF (congestive heart failure) Status: Chronic Problem Text: came in dehydrated however developed some fluid overload after iv hydration , NS stopped, will continue to monitor I/O , will start lasix (8) Dyslipidemia Status: Chronic (9) GERD (gastroesophageal reflux disease) Status: Chronic Plan / VTE VTE Prophylaxis Ordered?: Yes (lovenox) Plan Advance Directives: DNR Subjective Review of Systems CC/HPI The patient is a 70-year-old male admitted with a reason for visit of Sepsis. Events since last encounter feeling weak and tired, denied any chest pain or SOB , but does have cough , no fever or chills, no anusea or vomiting or diarrhea. Objective Physical Examination General Exam: Positive: Alert, Cooperative, No Acute Distress Eye Exam: Positive: EOMI, Negative: Sclera icteric ENT Exam: Positive: Mucous membr. moist/pink Neck Exam: Positive: Supple Chest Exam: Positive: Normal air movement, Rhonchi, Wheezing Heart Exam: Positive: Rate Normal, Regular Rhythm Abdomen Exam: Positive: Normal bowel sounds, Soft Extremity Exam: Negative: Edema Neuro Exam: Positive: Normal Speech Psych Exam: Positive: Mood NL, Oriented x 3 Vital Signs/I&O Vital Signs Date Time Temp Pulse Resp B/P Pulse Ox O2 Delivery O2 Flow Rate FiO2 08/08/16 08:20 85 158/72 08/08/16 06:00 97.9 19 95 Room Air 08/05/16 00:00 1.0 I&O- Last 24 Hours up to 6 AM 08/08/16 06:00 Intake Total 2380 ml Output Total 525 ml Balance 1855 ml Laboratory Data Labs 24H Laboratory Tests 2 08/07/16 11:50: Bedside Glucose (Misc Panel) 291H 08/07/16 16:29: Bedside Glucose (Misc Panel) 279H 08/07/16 20:30: Bedside Glucose (Misc Panel) 348H 08/08/16 06:06: Blood Urea Nitrogen 51H, Creatinine 1.96H, Sodium Level 137, Potassium Level 5.5H, Chloride Level 102, Carbon Dioxide Level 27, Calcium Level 8.3L, Aspartate Amino Transf (AST/SGOT) 15, Alanine Aminotransferase (ALT/SGPT) 23, Alkaline Phosphatase 148H, Total Bilirubin 0.3, Total Protein 6.7, Albumin 2.0L , Albumin/Globulin Ratio 0.43L, Anion Gap 8, White Blood Count 15.6H, Red Blood Count 3.30L, Hemoglobin 9.4L, Hematocrit 29.9L, Mean Corpuscular Volume 90.7, Mean Corpuscular Hemoglobin 28.6, Mean Corpuscular Hemoglobin Concent 31.5L, Red Cell Distribution Width 12.8, Platelet Count 216, Neutrophils (%) (Auto) 83.4H, Lymphocytes (%) (Auto) 7.2L, Monocytes (%) (Auto) 5.3H, Eosinophils (%) ( Auto) 1.5, Basophils (%) (Auto) 1.3H, Neutrophils # (Auto) 13.0H, Lymphocytes # (Auto) 1.3L, Monocytes # (Auto) 0.8, Eosinophils # (Auto) 0.2, Basophils # (Auto ) 0.2, Glomerular Filtration Rate 36.2L, Large Unclassified Cells # 0.2, Large Unclassified Cells % 1.4, Magnesium Level 2.5H CBC/BMP Laboratory Tests 08/08/16 06:06 Calcium Level 8.3 L, Aspartate Amino Transf (AST/SGOT) 15, Alanine Aminotransferase (ALT/SGPT) 23, Alkaline Phosphatase 148 H, Total Bilirubin 0.3 , Total Protein 6.7, Albumin 2.0 L, Red Blood Count 3.30 L, Mean Corpuscular Volume 90.7, Mean Corpuscular Hemoglobin 28.6, Mean Corpuscular Hemoglobin Concent 31.5 L, Red Cell Distribution Width 12.8, Neutrophils (%) (Auto) 83.4 H , Lymphocytes (%) (Auto) 7.2 L, Monocytes (%) (Auto) 5.3 H, Eosinophils (%) ( Auto) 1.5, Basophils (%) (Auto) 1.3 H, Neutrophils # (Auto) 13.0 H, Lymphocytes # (Auto) 1.3 L, Monocytes # (Auto) 0.8, Eosinophils # (Auto) 0.2, Basophils # ( Auto) 0.2 FSBS Laboratory Tests Test 08/07/16 11:50 08/07/16 16:29 08/07/16 20:30 Range/Units Bedside Glucose (Misc Panel) 291 279 348 83-110 MG/DL Microbiology Microbiology 08/04/16 Blood Culture - Preliminary, Resulted No Growth after 72 hours. All specime... 08/04/16 Blood Culture - Preliminary, Resulted No Growth after 72 hours. All specime... 08/07/16 MRSA Screen - Final, Complete Staph.aureus Methicillin Resis 08/04/16 MRSA Screen - Final, Complete Staph.aureus Methicillin Resis 08/04/16 Urine Culture - Final, Complete FAITH VALDES MD Aug 08, 2016 10:09
[2016-08-08 11:26] LABS: ALBUMIN % 42.5 % (55.8-66.1)
[2016-08-08 11:27] LABS: ALBUMIN 2.51 GM/DL (3.29-5.55); GAMMA GLOBULIN % 14.5 % (11.1-18.8)
[2016-08-08 14:00] VITALS: BP 114/72
[2016-08-08 15:43] LABS: CREATININE FOR GFR 2.08 MG/DL (0.70-1.30); GLOMERULAR FILTRATION RATE 33.8 (>42); POTASSIUM SERUM 5.1 MEQ/L (3.5-5.1)
[2016-08-08 18:00] VITALS: BP 156/86
[2016-08-08] MEDS: ENOXAPARIN 30 MG/0.3 ML SYR (J1650) SC SCH (20:43)
[2016-08-08 22:00] VITALS: BP 156/78
[2016-08-09 00:08] LABS: FREE KAPPA LIGHT CHAINS SERUM 65.37 mg/L (3.30-19.40); FREE LAMBDA LIGHT CHAINS SERUM 41.1 mg/L (5.71-26.30); KAPPA/LAMBDA RATIO SERUM 1.59 (0.26-1.65)
[2016-08-09] MEDS: NORCO, ANEXSIA 5/325MG TABLET (HYDROcodone/ACETAMINOPHEN) PO PRN (03:47)
[2016-08-09 06:00] VITALS: BP 150/58
[2016-08-09 06:41] LABS: BASO # 0.1 K/mm3 (0.0-0.2); BASO % 0.8 % (0.0-1.0); EOS # 0.3 K/mm3 (0.0-0.50); EOS % 1.6 % (0.0-3.0); LARGE UNSTAINED CELL # 0.2 K/mm3 (0.0-0.4); LARGE UNSTAINED CELL % 1.5 % (0.0-4.0); LYMPH # 1.3 K/mm3 (1.5-4.5); LYMPH % 6.6 % (24.0-44.0); MEAN CORPUSCULAR HEMOGLOBIN 28.4 pg (27.0-33.0); MEAN CORPUSCULAR HGB CONC 32.1 g/dl (32.0-36.5); MEAN CORPUSCULAR VOLUME 88.7 fl (80.0-96.0); MONO # 0.8 K/mm3 (0.0-0.8); MONO % 4.9 % (0.0-5.0); NEUTROPHILS % 84.7 % (36.0-66.0); PLATELET COUNT, AUTOMATED 223 k/mm3 (150-450); RED CELL DISTRIBUTION WIDTH 12.8 % (11.5-14.5); WHITE BLOOD COUNT 16.5 K/mm3 (4.0-10.0)
[2016-08-09 06:58] LABS: ALBUMIN/GLOBULIN RATIO 0.43 (1.00-1.93); BILIRUBIN,TOTAL 0.2 MG/DL (0.2-1.0); CALCIUM LEVEL 8.5 MG/DL (8.8-10.2); CREATININE FOR GFR 2.02 MG/DL (0.70-1.30); GLOMERULAR FILTRATION RATE 34.9 (>42); MAGNESIUM LEVEL 2.4 MG/DL (1.8-2.4); TOTAL PROTEIN 6.7 GM/DL (6.4-8.2)
[2016-08-09 07:13] LABS: POTASSIUM SERUM 5.7 MEQ/L (3.5-5.1)
[2016-08-09] MEDS: IPRATROPIUM 0.5MG/ALBUTEROL 2.5MG INH SOL UD 3ML (DUONEB)(J7620) NEB SCH ×3 (08:00→20:18)
[2016-08-09] MEDS: NICOTINE 14 MG/24 HR TRANSDERMAL TD SCH (08:32)
[2016-08-09] MEDS: ASPIRIN 325 MG TAB PO SCH (08:32)
[2016-08-09] MEDS: HumaLOG INSULIN (NovoLOG) PER UNIT SC SCH ×4 (08:33→20:42)
[2016-08-09] MEDS: OMEPRAZOLE 20 MG CAP PO SCH (08:33)
[2016-08-09] MEDS: LEVEMIR (INSULIN DETEMIR) 1 UNITS/0.01ML SC SCH ×2 (08:33→20:41)
[2016-08-09] MEDS: METOPROLOL SUCC (TopROL XL) 50MG **XL** TAB PO SCH (08:34)
[2016-08-09] MEDS: CALCIUM/VITAMIN D 250 MG TABLET PO SCH ×2 (08:34→20:40)
[2016-08-09] MEDS: CLOPIDOGREL 75 MG TAB PO SCH (08:34)
[2016-08-09] MEDS: PREGABALIN 75 MG CAP(LYRICA) PO SCH ×2 (08:34→20:40)
[2016-08-09] MEDS ORDERED: ALBUTEROL SULFATE 2.5 MG/0.5 ML INH NEB SOLN INH PRN (09:00)
[2016-08-09 10:00] VITALS: BP 143/72
--- NOTE | 2016-08-09 10:10 | IPNPDOC ---
[facility] Cardiology Progress Note Date of Service/Time The patient was seen on 08/09/16 at 10:02. Cardiology Progress Note SUBJECTIVE: Mr Walker was seen and examined at bedside this morning, he appeared to be doing quite well. He was sitting upright in his bedside chair shaving after having eaten his breakfast. He denied any active complaints and stated that he felt much better since his lasix treatment one day prior, he states he could breath easier. He denied chest pain, palpitations or SOB. OBJECTIVE: Mr Leblanc looked well this morning, he was not labored and was not coughing or SOB, he denied CP or palpitations and states that his breathing had improved since given the lasix therapy one day prior. PHYSICAL EXAMINATION: VITAL SIGNS: Please see below. GENERAL APPEARANCE: Comfortable elderly man, sitting in bedside chair shaving his facial nicolas. Was in no distress, pleasant and conversant. HEENT: NCAT, nares patent b/l, tongue midline, moist mucus membranes, neck supple without JVD as seen in prior days. LUNGS: minor crackles at bases b/l, however much improved from one day prior, no wheezing, rales or rhonchi appreciated HEART: normal s1 and s2, no murmurs, rubs or gallops appreciated, rate in the 70 's ABDOMEN: soft, non-distended, non-tender. SKIN: dry, intact EXTREMITIES: trace edema b/l LE, otherwise no cyanosis or clubbing appreciated NEUROLOGICAL: no focal deficits appreciated PSYCHIATRIC: affect is appropriate LABORATORY WORK: Please see below. ASSESSMENT AND PLAN: Mr Leblanc seems to be doing very well this morning and has no active complaints at this time. Will give another dose of Lasix IV 80 mg x1 today. Creatine today is 2.02 fro, 2.08, seems it is beginning to plateau. Would continue with current plan of care. No further recommendations at this time. Vital Signs/I&O VS/I&O Vital Signs Date Time Temp Pulse Resp B/P Pulse Ox O2 Delivery O2 Flow Rate FiO2 08/09/16 08:34 71 150/58 08/09/16 06:00 98.4 18 93 Room Air 08/05/16 00:00 1.0 I&O- Last 24 Hours up to 6 AM 08/09/16 06:00 Intake Total 2160 ml Output Total 2477 ml Balance -317 ml Laboratory Data 24H LABS Laboratory Tests 2 08/08/16 11:44: Bedside Glucose (Misc Panel) 476H 08/08/16 15:03: Anion Gap 10, Blood Urea Nitrogen 51H, Creatinine 2.08H, Sodium Level 136, Potassium Level 5.1, Chloride Level 100, Carbon Dioxide Level 26, Calcium Level 8.0L, Glomerular Filtration Rate 33.8L 08/08/16 16:57: Bedside Glucose (Misc Panel) 524*H 08/08/16 17:14: Bedside Glucose Confirm (Misc) 342H 08/08/16 19:59: Bedside Glucose (Misc Panel) 412H 08/09/16 06:12: 08/09/16 06:19: Blood Urea Nitrogen 51H, Creatinine 2.02H, Sodium Level 135L, Potassium Level 5.7H, Chloride Level 100, Carbon Dioxide Level 29, Calcium Level 8.5L, Aspartate Amino Transf (AST/SGOT) 23, Alanine Aminotransferase (ALT/SGPT) 31, Alkaline Phosphatase 198H, Total Bilirubin 0.2, Total Protein 6.7, Albumin 2.0L , Albumin/Globulin Ratio 0.43L, Anion Gap 6L, White Blood Count 16.5H, Red Blood Count 3.19L, Hemoglobin 9.1L, Hematocrit 28.3L, Mean Corpuscular Volume 88.7, Mean Corpuscular Hemoglobin 28.4, Mean Corpuscular Hemoglobin Concent 32.1 , Red Cell Distribution Width 12.8, Platelet Count 223, Neutrophils (%) (Auto) 84.7H, Lymphocytes (%) (Auto) 6.6L, Monocytes (%) (Auto) 4.9, Eosinophils (%) ( Auto) 1.6, Basophils (%) (Auto) 0.8, Neutrophils # (Auto) 14.0H, Lymphocytes # ( Auto) 1.3L, Monocytes # (Auto) 0.8, Eosinophils # (Auto) 0.3, Basophils # (Auto ) 0.1, Glomerular Filtration Rate 34.9L, Large Unclassified Cells # 0.2, Large Unclassified Cells % 1.5, Magnesium Level 2.4 CBC/BMP Laboratory Tests 08/08/16 15:03 Calcium Level 8.0 L 08/09/16 06:19 Calcium Level 8.5 L, Aspartate Amino Transf (AST/SGOT) 23, Alanine Aminotransferase (ALT/SGPT) 31, Alkaline Phosphatase 198 H, Total Bilirubin 0.2 , Total Protein 6.7, Albumin 2.0 L, Red Blood Count 3.19 L, Mean Corpuscular Volume 88.7, Mean Corpuscular Hemoglobin 28.4, Mean Corpuscular Hemoglobin Concent 32.1, Red Cell Distribution Width 12.8, Neutrophils (%) (Auto) 84.7 H, Lymphocytes (%) (Auto) 6.6 L, Monocytes (%) (Auto) 4.9, Eosinophils (%) (Auto) 1.6, Basophils (%) (Auto) 0.8, Neutrophils # (Auto) 14.0 H, Lymphocytes # (Auto ) 1.3 L, Monocytes # (Auto) 0.8, Eosinophils # (Auto) 0.3, Basophils # (Auto) 0.1 FSBS Laboratory Tests Test 08/08/16 11:44 08/08/16 16:57 08/08/16 19:59 Range/Units Bedside Glucose (Misc Panel) 476 524 412 83-110 MG/DL Microbiology Microbiology 08/04/16 Blood Culture - Preliminary, Resulted No Growth after 72 hours. All specime... 08/04/16 Blood Culture - Preliminary, Resulted No Growth after 72 hours. All specime... 08/07/16 MRSA Screen - Final, Complete Staph.aureus Methicillin Resis 08/04/16 MRSA Screen - Final, Complete Staph.aureus Methicillin Resis 08/04/16 Urine Culture - Final, Complete GME ATTESTATION GME ATTESTATION My preceptor for this patient encounter was physically present in the building during the encounter and was fully available. As needed, all aspects of the patient interview, examination, medical decision making process, and medical care plan development were reviewed and approved by the preceptor. Preceptor is aware and concurs with the plan as stated in the body of this note and will attest to such by his/her cosignature. NABILA DOUGLAS DO Aug 09, 2016 10:09
[2016-08-09] MEDS ORDERED: FUROSEMIDE 100 MG/10 ML VIAL (J1940) IV ONE (10:15)
--- NOTE | 2016-08-09 11:23 | IPNPDOC ---
Assessment/Plan Date Seen The patient was seen on 08/09/16. Problems Problems: (1) Leucocytosis Status: Acute Problem Text: persistent leucocytosis in th 15 to 16 k range with high esr and crp. no sourse of infection identified will send c diff SPEP shows 2 m spikes in the gamma region , free light chanin ratio is normal , ordered immunofixation of serum. (2) SIRS-noninf w ac org dys Status: Acute Problem Text: evidenced by HR 90, temp 100.3, WBC 25, and BP 79/41 upon arrival to ED; recent flu infection but thus far blood and urine cultures are negative; I suspect that this was secondary to dehydration as the patient has a concomitant KOSTAS and has responded to IVF; patient was recently recovering from influenza so had poor appetite and was tired so was not eating or drinking adequately this probably led to his dehydration and KOSTAS. vitals now stabilized, afebrile, WBC improved to 15; continue to follow up cultures; no antibiotics at this time as no clear infection will get CT chest as having low grade fevers. (3) Acute on chronic kidney failure Status: Acute Problem Text: baseline Cr around mid to upper 1s; Cr upon admission was 2.53, now increased to 3.0; I suspect this is secondary to dehydration/prerenal; Now improving will restart lasix. seems to be getting mildly fluid overloaded. (4) Defibrillator discharge Status: Resolved Problem Text: ICD interogated. ICD did not fire there was no arrhythmia. Patient may have had a myoclonic jerk Dr. Mcpherson consulted; patient denies chest pain; trops were negative (5) CAD (coronary artery disease) Status: Chronic Problem Text: hx of [place] and s/p CABG and stents; no current chest pain; trops negative; continue home ASA, plavix, beta juan daniel; needs to discuss with primary physicians adding a statin (6) HTN (hypertension) Status: Chronic Problem Text: continue home beta juan daniel (7) Diabetes mellitus Status: Chronic Response to Treatment: Uncontrolled Problem Text: patient is unclear on home lantus dosing; SSI while in house and add and adjust levemir accordingly (8) Chronic diastolic CHF (congestive heart failure) Status: Chronic Problem Text: came in dehydrated however developed some fluid overload after iv hydration , NS stopped, will continue to monitor I/O , will start lasix (9) Dyslipidemia Status: Chronic (10) GERD (gastroesophageal reflux disease) Status: Chronic Plan / VTE VTE Prophylaxis Ordered?: Yes (lovenox) Plan Advance Directives: DNR Subjective Review of Systems CC/HPI The patient is a 70-year-old male admitted with a reason for visit of Sepsis. Events since last encounter No complaints this morning. Had 3 bowel movements yesterday . good urine output but high oral intake so remains in positive balance. no fever or chills, has some cough , no shortness of breath Objective Physical Examination General Exam: Positive: Alert, Cooperative, No Acute Distress Eye Exam: Positive: EOMI, Negative: Sclera icteric ENT Exam: Positive: Mucous membr. moist/pink Neck Exam: Positive: Supple Chest Exam: Positive: Normal air movement, Rales Heart Exam: Positive: Rate Normal, Regular Rhythm Abdomen Exam: Positive: Normal bowel sounds, Soft Extremity Exam: Negative: Edema Neuro Exam: Positive: Normal Speech Psych Exam: Positive: Mood NL, Oriented x 3 Vital Signs/I&O Vital Signs Date Time Temp Pulse Resp B/P Pulse Ox O2 Delivery O2 Flow Rate FiO2 08/09/16 08:34 71 150/58 08/09/16 06:00 98.4 18 93 Room Air 08/05/16 00:00 1.0 I&O- Last 24 Hours up to 6 AM 08/09/16 06:00 Intake Total 2160 ml Output Total 2477 ml Balance -317 ml Laboratory Data Labs 24H Laboratory Tests 2 08/08/16 11:44: Bedside Glucose (Misc Panel) 476H 08/08/16 15:03: Anion Gap 10, Blood Urea Nitrogen 51H, Creatinine 2.08H, Sodium Level 136, Potassium Level 5.1, Chloride Level 100, Carbon Dioxide Level 26, Calcium Level 8.0L, Glomerular Filtration Rate 33.8L 08/08/16 16:57: Bedside Glucose (Misc Panel) 524*H 08/08/16 17:14: Bedside Glucose Confirm (Misc) 342H 08/08/16 19:59: Bedside Glucose (Misc Panel) 412H 08/09/16 06:12: 08/09/16 06:19: Blood Urea Nitrogen 51H, Creatinine 2.02H, Sodium Level 135L, Potassium Level 5.7H, Chloride Level 100, Carbon Dioxide Level 29, Calcium Level 8.5L, Aspartate Amino Transf (AST/SGOT) 23, Alanine Aminotransferase (ALT/SGPT) 31, Alkaline Phosphatase 198H, Total Bilirubin 0.2, Total Protein 6.7, Albumin 2.0L , Albumin/Globulin Ratio 0.43L, Anion Gap 6L, White Blood Count 16.5H, Red Blood Count 3.19L, Hemoglobin 9.1L, Hematocrit 28.3L, Mean Corpuscular Volume 88.7, Mean Corpuscular Hemoglobin 28.4, Mean Corpuscular Hemoglobin Concent 32.1 , Red Cell Distribution Width 12.8, Platelet Count 223, Neutrophils (%) (Auto) 84.7H, Lymphocytes (%) (Auto) 6.6L, Monocytes (%) (Auto) 4.9, Eosinophils (%) ( Auto) 1.6, Basophils (%) (Auto) 0.8, Neutrophils # (Auto) 14.0H, Lymphocytes # ( Auto) 1.3L, Monocytes # (Auto) 0.8, Eosinophils # (Auto) 0.3, Basophils # (Auto ) 0.1, Glomerular Filtration Rate 34.9L, Large Unclassified Cells # 0.2, Large Unclassified Cells % 1.5, Magnesium Level 2.4 CBC/BMP Laboratory Tests 08/08/16 15:03 Calcium Level 8.0 L 08/09/16 06:19 Calcium Level 8.5 L, Aspartate Amino Transf (AST/SGOT) 23, Alanine Aminotransferase (ALT/SGPT) 31, Alkaline Phosphatase 198 H, Total Bilirubin 0.2 , Total Protein 6.7, Albumin 2.0 L, Red Blood Count 3.19 L, Mean Corpuscular Volume 88.7, Mean Corpuscular Hemoglobin 28.4, Mean Corpuscular Hemoglobin Concent 32.1, Red Cell Distribution Width 12.8, Neutrophils (%) (Auto) 84.7 H, Lymphocytes (%) (Auto) 6.6 L, Monocytes (%) (Auto) 4.9, Eosinophils (%) (Auto) 1.6, Basophils (%) (Auto) 0.8, Neutrophils # (Auto) 14.0 H, Lymphocytes # (Auto ) 1.3 L, Monocytes # (Auto) 0.8, Eosinophils # (Auto) 0.3, Basophils # (Auto) 0.1 FSBS Laboratory Tests Test 08/08/16 11:44 08/08/16 16:57 08/08/16 19:59 Range/Units Bedside Glucose (Misc Panel) 476 524 412 83-110 MG/DL Microbiology Microbiology 08/04/16 Blood Culture - Preliminary, Resulted No Growth after 72 hours. All specime... 08/04/16 Blood Culture - Preliminary, Resulted No Growth after 72 hours. All specime... 08/07/16 MRSA Screen - Final, Complete Staph.aureus Methicillin Resis 08/04/16 MRSA Screen - Final, Complete Staph.aureus Methicillin Resis 08/04/16 Urine Culture - Final, Complete FAITH VALDES MD Aug 09, 2016 11:23
[2016-08-09 14:00] VITALS: BP 148/73
[2016-08-09 18:00] VITALS: BP 152/80
[2016-08-09] MEDS: ENOXAPARIN 30 MG/0.3 ML SYR (J1650) SC SCH (20:40)
[2016-08-09 22:00] VITALS: BP 162/74
[2016-08-10] VITALS (7 sets, daily range): BP systolic 127–184; BP diastolic 60–80
--- NOTE | 2016-08-10 00:15 | CR ---
DATE OF CONSULTATION: 08/09/2016 INFECTIOUS DISEASE CONSULTATION Asked to consult by Dr. Hopson for evaluation of fever with elevated inflammatory markers. HISTORY OF THE PRESENT ILLNESS: Mr. Drake is a pleasant 70-year-old gentleman who was admitted 5 days ago after he was noted to be unresponsive by his friends. The patient recalls that he woke up in the morning after he had felt a jolt and he thought it was his defibrillator that woke him up. He went to his couch, laid down on his couch and slept there. He was found by his neighbor who takes care of his pigs as they have pigs together and is in charge of feeding the pigs in the morning, came to see him, he was noted to be unresponsive on the couch. The patient was hypotensive. He had a low grade temperature on admission. He was brought into the emergency room (ER) by the ambulance and was placed in the intensive care unit (ICU). The patient denied having any chest pain. He took aspirin on the way, and he follows up with Dr. Mcpherson, his resident care aid. He stated he had an episode of bronchitis about 2 weeks ago for which he received Zithromax, but he was not feeling any better and therefore, he came to the emergency room on 07/27/2016 where he was diagnosed with the flu, influenza A. He was given Tamiflu for 5 days which he finished on 08/01/2016. The patient still has a cough, which he stated is mostly nonproductive and it has markedly improved. But, he has had those fevers that have remained persistent. On admission, his white count was 25,000. On 07/27/2016 when he had the flu, it was 8.5. The patient states that his cough has markedly improved. He is not short of breath. He is not having nausea or vomiting. He had one episode of diarrhea. No abdominal pain. No chills. He feels much better and is anxious to go home. PAST MEDICAL HISTORY: Significant for: Coronary artery disease, status post coronary artery bypass graft (CABG). Diabetes insulin-dependent with diabetic neuropathy. Hypertension. Hyperlipidemia. Myocardial infarction. Congestive heart failure. PAST SURGICAL HISTORY: Coronary stent. Pacemaker defibrillator. Femoral-popliteal bypass bilaterally. CABG in 2012. SOCIAL HISTORY: He quit smoking 4 years ago. He is . He has two supportive children. He used to smoke a pack of cigarettes a day, now he quit but he chews tobacco. He lives alone. He has one pig and his neighbor has four pigs, but they are all on his land and they take care of them together. He has also 30 chickens. ALLERGIES: He has no known drug allergies. MEDICATIONS: - albuterol as needed - aspirin 325 mg daily - calcium and vitamin D - Plavix 75 mg daily - nicotine patch one daily - omeprazole 40 mg daily - metoprolol 50 mg daily - Lyrica 150 mg by mouth twice a day - Lovenox 30 mg subcu daily LABORATORY DATA: White count on admission was 25.4, currently 16.5, hemoglobin 9.1, hematocrit 28.3, platelets 223, 84% neutrophils, 6% lymphocytes, 4% monocytes. ESR is 95 to 107. Sodium 135, potassium 5.7, chloride 100, bicarbonate 29, BUN 51, creatinine 2.02. His normal creatinine is about 1.4-1.5. Glucose 264, calcium 8.5, magnesium 2.4, AST 23, ALT 31, alkaline phosphatase 198. CRP continues to rise from 9.29 to 15.3 today. Blood cultures drawn on 08/04/2016 were no growth after 5 days. Blood cultures done in the emergency room when he had influenza were also negative. Urine culture was negative. Methicillin-resistant Staphylococcus aureus (MRSA) screen was positive when he was in the intensive care unit (ICU). Two more sets of blood cultures were drawn today. IMAGING STUDIES: CT of the lumbar spine done 2 days prior to admission that was ordered by Dr. Shmuel Simmons shows diffuse disc bulges at L2-3 through L5-S1 with minimal thecal sac compression. Chest x-ray done on admission shows prior median sternotomy, cardiac silhouette is normal and mild interstitial edema. Chest CT done on 08/07/2016 shows cardiomegaly, pacemaker, some pulmonary vascular congestion. Interstitial markings are prominent in the bases. Small bilateral effusions compatible with mild CHF and stable 10 mm noncalcified pulmonary nodule and another small 7 mm nodule in the right lower lobe. No focal filtrate is seen and there is extensive vascular calcification. On physical exam, temperature is 100.5, pulse 90, respirations 18, blood pressure 162/74, oxygen saturation 92% on room air. Heart: Normal S1, S2 with a systolic ejection murmur, holosystolic, best heard at the apex. Lungs have a few wheezes at the left base. No rhonchi or wheezing. Abdomen: Obese, soft, nontender. Back: No costovertebral angle or lumbosacral tenderness. Extremities: No clubbing, cyanosis or edema. No calf tenderness. Very dry feet. He has a blister on the bottom of the right foot which is old and healing. Neurologic: Exam is normal. IMPRESSION: This is a 70-year-old gentleman with a history of influenza, diagnosed on 07/27/2016, was admitted after a syncopal episode and congestive heart failure. The patient has markedly improved, feels much better. His cough has improved as well as his shortness of breath. He continues with fever, high sedimentation (sed) rate and C-reactive protein (CRP) even though he is asymptomatic. PLAN: Will repeat two sets of blood cultures today. The patient has remained off antibiotics. I would suggest obtaining CT abdomen and pelvis for workup of an fever of undetermined origin, looking for occult abscess. Will repeat also a chest x-ray, PA and lateral, in the morning looking for source of infection. He could have post influenza pneumonia, although he states his cough is much improved. Usually this is caused by Staphylococcus (Staph) aureus, especially in a patient who has had MRSA. We could consider giving him Zyvox or doxycycline. Will obtain a sputum, gram stain and culture as well. The patient will be scheduled for a CT abdomen and pelvis without contrast as his creatinine is 2 MTDD
[2016-08-10] MEDS: IPRATROPIUM 0.5MG/ALBUTEROL 2.5MG INH SOL UD 3ML (DUONEB)(J7620) NEB SCH ×4 (01:22→20:11)
[2016-08-10 05:54] LABS: BASO % 0.3 % (0.0-1.0); EOS # 0.2 K/mm3 (0.0-0.50); EOS % 1.8 % (0.0-3.0); LARGE UNSTAINED CELL # 0.2 K/mm3 (0.0-0.4); LYMPH % 8.7 % (24.0-44.0); MEAN CORPUSCULAR HEMOGLOBIN 27.7 pg (27.0-33.0); MEAN CORPUSCULAR HGB CONC 30.5 g/dl (32.0-36.5); MEAN CORPUSCULAR VOLUME 90.7 fl (80.0-96.0); MONO # 0.8 K/mm3 (0.0-0.8); MONO % 7.3 % (0.0-5.0); NEUTROPHILS # 8.9 K/mm3 (1.8-7.7); NEUTROPHILS % 79.9 % (36.0-66.0); PLATELET COUNT, AUTOMATED 212 k/mm3 (150-450); RED CELL DISTRIBUTION WIDTH 11.7 % (11.5-14.5); WHITE BLOOD COUNT 11.1 K/mm3 (4.0-10.0)
[2016-08-10 06:12] LABS: ALBUMIN 1.9 GM/DL (3.2-5.2); ALBUMIN/GLOBULIN RATIO 0.39 (1.00-1.93); BILIRUBIN,TOTAL 0.3 MG/DL (0.2-1.0); CALCIUM LEVEL 8.4 MG/DL (8.8-10.2); CREATININE FOR GFR 1.88 MG/DL (0.70-1.30); MAGNESIUM LEVEL 2.3 MG/DL (1.8-2.4); TOTAL PROTEIN 6.8 GM/DL (6.4-8.2)
[2016-08-10] MEDS: HumaLOG INSULIN (NovoLOG) PER UNIT SC SCH ×4 (09:35→20:15)
[2016-08-10] MEDS: ASPIRIN 325 MG TAB PO SCH (09:47)
[2016-08-10] MEDS: PREGABALIN 75 MG CAP(LYRICA) PO SCH ×2 (09:48→20:49)
[2016-08-10] MEDS: CLOPIDOGREL 75 MG TAB PO SCH (09:48)
[2016-08-10] MEDS: CALCIUM/VITAMIN D 250 MG TABLET PO SCH ×2 (09:48→20:50)
[2016-08-10] MEDS: OMEPRAZOLE 20 MG CAP PO SCH (09:49)
[2016-08-10] MEDS: METOPROLOL SUCC (TopROL XL) 50MG **XL** TAB PO SCH (09:50)
[2016-08-10] MEDS: LEVEMIR (INSULIN DETEMIR) 1 UNITS/0.01ML SC SCH ×2 (09:51→20:50)
[2016-08-10] MEDS: NICOTINE 14 MG/24 HR TRANSDERMAL TD SCH (09:52)
--- NOTE | 2016-08-10 10:41 | IPNPDOC ---
Assessment/Plan Date Seen The patient was seen on 08/10/16. Problems Problems: (1) Leucocytosis Status: Acute Problem Text: persistent leucocytosis in th 15 to 16 k range with high esr and crp. no source of infection identified will send c diff SPEP shows 2 m spikes in the gamma region , free light chanin ratio is normal , ordered immunofixation of serum. ct abdomen and pelvis done , cxr done reading pending. (2) SIRS-noninf w ac org dys Status: Acute Problem Text: evidenced by HR 90, temp 100.3, WBC 25, and BP 79/41 upon arrival to ED; recent flu infection but thus far blood and urine cultures are negative; I suspect that this was secondary to dehydration as the patient has a concomitant KOSTAS and has responded to IVF; patient was recently recovering from influenza so had poor appetite and was tired so was not eating or drinking adequately this probably led to his dehydration and KOSTAS. vitals now stabilized, afebrile, WBC improved to 15; continue to follow up cultures; no antibiotics at this time as no clear infection will get CT chest as having low grade fevers. (3) Acute on chronic kidney failure Status: Acute Problem Text: baseline Cr around mid to upper 1s; Cr upon admission was 2.53, now increased to 3.0; I suspect this is secondary to dehydration/prerenal; Now improving will restart lasix. seems to be getting mildly fluid overloaded. (4) Defibrillator discharge Status: Resolved Problem Text: ICD interogated. ICD did not fire there was no arrhythmia. Patient may have had a myoclonic jerk Dr. Mcpherson consulted; patient denies chest pain; trops were negative (5) CAD (coronary artery disease) Status: Chronic Problem Text: hx of [place] and s/p CABG and stents; no current chest pain; trops negative; continue home ASA, plavix, beta juan daniel; needs to discuss with primary physicians adding a statin (6) HTN (hypertension) Status: Chronic Problem Text: continue home beta juan daniel (7) Diabetes mellitus Status: Chronic Response to Treatment: Uncontrolled Problem Text: patient is unclear on home lantus dosing; SSI while in house and add and adjust levemir accordingly (8) Dyslipidemia Status: Chronic (9) GERD (gastroesophageal reflux disease) Status: Chronic (10) Acute on chronic diastolic heart failure Status: Acute Problem Text: now on lasix 80 mg iv as required based on fluid status. came in dehydrated however developed some fluid overload and had some acute diastolic chf. Plan / VTE VTE Prophylaxis Ordered?: Yes (lovenox) Plan Advance Directives: DNR Subjective Review of Systems CC/HPI The patient is a 70-year-old male admitted with a reason for visit of Sepsis. Events since last encounter has been coughing since last night , had low grade fever overnight , feeling very tired and exhausted as did not get much sleep last night. Objective Physical Examination General Exam: Positive: Alert, Cooperative, No Acute Distress Eye Exam: Positive: EOMI, Negative: Sclera icteric ENT Exam: Positive: Mucous membr. moist/pink Neck Exam: Positive: Supple Chest Exam: Positive: Normal air movement, Rales Heart Exam: Positive: Rate Normal, Regular Rhythm Abdomen Exam: Positive: Normal bowel sounds, Soft Extremity Exam: Negative: Edema Neuro Exam: Positive: Normal Speech Psych Exam: Positive: Mood NL, Oriented x 3 Vital Signs/I&O Vital Signs Date Time Temp Pulse Resp B/P Pulse Ox O2 Delivery O2 Flow Rate FiO2 08/10/16 09:50 86 184/80 08/10/16 06:00 100.8 19 93 Room Air 08/05/16 00:00 1.0 I&O- Last 24 Hours up to 6 AM 08/10/16 06:00 Intake Total 1200 ml Output Total 2400 ml Balance -1200 ml Laboratory Data Labs 24H Laboratory Tests 2 08/09/16 11:48: Bedside Glucose (Misc Panel) 364H 08/09/16 16:55: Bedside Glucose (Misc Panel) 460H 08/09/16 16:58: 08/09/16 20:33: Bedside Glucose (Misc Panel) 401H 08/10/16 05:35: Blood Urea Nitrogen 48H, Creatinine 1.88H, Sodium Level 136, Potassium Level 5.0 , Chloride Level 98, Carbon Dioxide Level 29, Calcium Level 8.4L, Aspartate Amino Transf (AST/SGOT) 25, Alanine Aminotransferase (ALT/SGPT) 41, Alkaline Phosphatase 237H, Total Bilirubin 0.3, Total Protein 6.8, Albumin 1.9L, Albumin/ Globulin Ratio 0.39L, Anion Gap 9, White Blood Count 11.1H, Red Blood Count 3.09L, Hemoglobin 8.6L, Hematocrit 28.0L, Mean Corpuscular Volume 90.7, Mean Corpuscular Hemoglobin 27.7, Mean Corpuscular Hemoglobin Concent 30.5L, Red Cell Distribution Width 11.7, Platelet Count 212, Neutrophils (%) (Auto) 79.9H, Lymphocytes (%) (Auto) 8.7L, Monocytes (%) (Auto) 7.3H, Eosinophils (%) (Auto) 1.8, Basophils (%) (Auto) 0.3, Neutrophils # (Auto) 8.9H, Lymphocytes # (Auto) 1.0L, Monocytes # (Auto) 0.8, Eosinophils # (Auto) 0.2, Basophils # (Auto) 0.0, Glomerular Filtration Rate 38.0L, Large Unclassified Cells # 0.2, Large Unclassified Cells % 2.0, Magnesium Level 2.3 CBC/BMP Laboratory Tests 08/10/16 05:35 Calcium Level 8.4 L, Aspartate Amino Transf (AST/SGOT) 25, Alanine Aminotransferase (ALT/SGPT) 41, Alkaline Phosphatase 237 H, Total Bilirubin 0.3 , Total Protein 6.8, Albumin 1.9 L, Red Blood Count 3.09 L, Mean Corpuscular Volume 90.7, Mean Corpuscular Hemoglobin 27.7, Mean Corpuscular Hemoglobin Concent 30.5 L, Red Cell Distribution Width 11.7, Neutrophils (%) (Auto) 79.9 H , Lymphocytes (%) (Auto) 8.7 L, Monocytes (%) (Auto) 7.3 H, Eosinophils (%) ( Auto) 1.8, Basophils (%) (Auto) 0.3, Neutrophils # (Auto) 8.9 H, Lymphocytes # ( Auto) 1.0 L, Monocytes # (Auto) 0.8, Eosinophils # (Auto) 0.2, Basophils # (Auto ) 0.0 FSBS Laboratory Tests Test 08/09/16 11:48 08/09/16 16:55 08/09/16 20:33 Range/Units Bedside Glucose (Misc Panel) 364 460 401 83-110 MG/DL Microbiology Microbiology 08/09/16 Blood Culture, Received Pending 08/09/16 Blood Culture, Received Pending 08/04/16 Blood Culture - Final, Complete NO GROWTH AFTER 5 DAYS 08/04/16 Blood Culture - Final, Complete NO GROWTH AFTER 5 DAYS 08/07/16 MRSA Screen - Final, Complete Staph.aureus Methicillin Resis 08/04/16 MRSA Screen - Final, Complete Staph.aureus Methicillin Resis 08/04/16 Urine Culture - Final, Complete FAITH VALDES MD Aug 10, 2016 10:41
[2016-08-10] MEDS: guaiFENesin ER 600 MG TAB PO SCH ×2 (11:41→20:49)
[2016-08-10] MEDS: FUROSEMIDE 100 MG/10 ML VIAL (J1940) IV SCH (11:41)
[2016-08-10] MEDS: ENOXAPARIN 30 MG/0.3 ML SYR (J1650) SC SCH (20:49)
[2016-08-11] MEDS: NORCO, ANEXSIA 5/325MG TABLET (HYDROcodone/ACETAMINOPHEN) PO PRN ×2 (00:08→21:38)
[2016-08-11 02:00] VITALS: BP 104/59
[2016-08-11] MEDS: IPRATROPIUM 0.5MG/ALBUTEROL 2.5MG INH SOL UD 3ML (DUONEB)(J7620) NEB SCH ×4 (02:00→19:08)
[2016-08-11 06:00] VITALS: BP 127/82
[2016-08-11 06:18] LABS: BASO # 0.1 K/mm3 (0.0-0.2); BASO % 0.6 % (0.0-1.0); EOS # 0.3 K/mm3 (0.0-0.50); EOS % 3.5 % (0.0-3.0); LARGE UNSTAINED CELL # 0.2 K/mm3 (0.0-0.4); LYMPH # 1.3 K/mm3 (1.5-4.5); LYMPH % 13.9 % (24.0-44.0); MEAN CORPUSCULAR HGB CONC 30.8 g/dl (32.0-36.5); MEAN CORPUSCULAR VOLUME 91.1 fl (80.0-96.0); MONO # 0.7 K/mm3 (0.0-0.8); MONO % 7.3 % (0.0-5.0); NEUTROPHILS % 72.7 % (36.0-66.0); PLATELET COUNT, AUTOMATED 246 k/mm3 (150-450); RED CELL DISTRIBUTION WIDTH 11.9 % (11.5-14.5); WHITE BLOOD COUNT 9.7 K/mm3 (4.0-10.0)
[2016-08-11 06:46] LABS: ALBUMIN 2.1 GM/DL (3.2-5.2); ALBUMIN/GLOBULIN RATIO 0.48 (1.00-1.93); BILIRUBIN,TOTAL 0.3 MG/DL (0.2-1.0); CALCIUM LEVEL 8.3 MG/DL (8.8-10.2); CREATININE FOR GFR 2.02 MG/DL (0.70-1.30); GLOMERULAR FILTRATION RATE 34.9 (>42); MAGNESIUM LEVEL 2.4 MG/DL (1.8-2.4); TOTAL PROTEIN 6.5 GM/DL (6.4-8.2)
[2016-08-11 06:47] LABS: POTASSIUM SERUM 5.2 MEQ/L (3.5-5.1)
[2016-08-11] MEDS: HumaLOG INSULIN (NovoLOG) PER UNIT SC SCH ×5 (07:57→20:51)
[2016-08-11] MEDS: FUROSEMIDE 100 MG/10 ML VIAL (J1940) IV SCH (09:00)
[2016-08-11] MEDS: LEVEMIR (INSULIN DETEMIR) 1 UNITS/0.01ML SC SCH ×3 (09:00→20:50)
[2016-08-11] MEDS: NICOTINE 14 MG/24 HR TRANSDERMAL TD SCH (09:16)
[2016-08-11] MEDS: guaiFENesin ER 600 MG TAB PO SCH ×2 (09:16→20:49)
[2016-08-11] MEDS: CALCIUM/VITAMIN D 250 MG TABLET PO SCH ×2 (09:17→20:49)
[2016-08-11] MEDS: METOPROLOL SUCC (TopROL XL) 50MG **XL** TAB PO SCH (09:17)
[2016-08-11] MEDS: CLOPIDOGREL 75 MG TAB PO SCH (09:17)
[2016-08-11] MEDS: ASPIRIN 325 MG TAB PO SCH (09:18)
[2016-08-11] MEDS: OMEPRAZOLE 20 MG CAP PO SCH (09:18)
[2016-08-11] MEDS: PREGABALIN 75 MG CAP(LYRICA) PO SCH ×2 (09:18→20:49)
[2016-08-11 10:00] VITALS: BP 144/63
--- NOTE | 2016-08-11 10:14 | IPNPDOC ---
Assessment/Plan Date Seen The patient was seen on 08/11/16. Problems Problems: (1) Leucocytosis Status: Acute Response to Treatment: Improving Problem Text: leucocytosis has improved with out antibiotics . crp improving. no source of infection identified will send c diff and sputum culture SPEP shows 2 m spikes in the gamma region , free light chain ratio is normal , ordered immunofixation of serum. ct abdomen and pelvis done , cxr done reading pending. (2) SIRS-noninf w ac org dys Status: Acute Problem Text: evidenced by HR 90, temp 100.3, WBC 25, and BP 79/41 upon arrival to ED; recent flu infection but thus far blood and urine cultures are negative; I suspect that this was secondary to dehydration as the patient has a concomitant KOSTAS and has responded to IVF; patient was recently recovering from influenza so had poor appetite and was tired so was not eating or drinking adequately this probably led to his dehydration and KOSTAS. vitals now stabilized, afebrile, WBC improved to 15; continue to follow up cultures; no antibiotics at this time as no clear infection will get CT chest as having low grade fevers. (3) Acute on chronic kidney failure Status: Acute Problem Text: baseline Cr around mid to upper 1s; Cr upon admission was 2.53, had increased to 3.0;Now stabilized around 2.0. I suspect this is secondary to dehydration/prerenal; restarted lasix as was getting fluid overloaded. (4) Defibrillator discharge Status: Resolved Problem Text: ICD interogated. ICD did not fire there was no arrhythmia. Patient may have had a myoclonic jerk Dr. Mcpherson consulted; patient denies chest pain; trops were negative (5) CAD (coronary artery disease) Status: Chronic Problem Text: hx of CT and s/p CABG and stents; no current chest pain; trops negative; continue home ASA, plavix, beta juan daniel; needs to discuss with primary physicians adding a statin (6) HTN (hypertension) Status: Chronic Problem Text: continue home beta juan daniel (7) Diabetes mellitus Status: Chronic Response to Treatment: Uncontrolled Problem Text: patient is unclear on home lantus dosing; SSI while in house and add and adjust levemir accordingly (8) Dyslipidemia Status: Chronic (9) GERD (gastroesophageal reflux disease) Status: Chronic (10) Acute on chronic diastolic heart failure Status: Acute Problem Text: now on lasix 80 mg iv as required based on fluid status. Plan / VTE VTE Prophylaxis Ordered?: Yes (lovenox) Plan Advance Directives: DNR Subjective Review of Systems CC/HPI The patient is a 70-year-old male admitted with a reason for visit of Sepsis. Events since last encounter feeling better this morning though still had a low grade fever, cough better, eating well , though had low blood sugars in morning lab. have not got a stool sample yet or any sputum sample yet. Objective Physical Examination General Exam: Positive: Alert, Cooperative, No Acute Distress Eye Exam: Positive: EOMI, Negative: Sclera icteric ENT Exam: Positive: Mucous membr. moist/pink Neck Exam: Positive: Supple Chest Exam: Positive: Normal air movement, Rales Heart Exam: Positive: Rate Normal, Regular Rhythm Abdomen Exam: Positive: Normal bowel sounds, Soft Extremity Exam: Negative: Edema Neuro Exam: Positive: Normal Speech Psych Exam: Positive: Mood NL, Oriented x 3 Vital Signs/I&O Vital Signs Date Time Temp Pulse Resp B/P Pulse Ox O2 Delivery O2 Flow Rate FiO2 08/11/16 09:17 72 127/82 08/11/16 06:00 97.2 18 94 Room Air 08/05/16 00:00 1.0 I&O- Last 24 Hours up to 6 AM 08/11/16 06:00 Intake Total 825 ml Output Total 1850 ml Balance -1025 ml Laboratory Data Labs 24H Laboratory Tests 2 08/10/16 12:30: Bedside Glucose (Misc Panel) 182H 08/10/16 16:35: Bedside Glucose (Misc Panel) 116H 08/10/16 20:10: Bedside Glucose (Misc Panel) 169H 08/11/16 05:42: Blood Urea Nitrogen 55H, Creatinine 2.02H, Sodium Level 139, Potassium Level 5.2H, Chloride Level 103, Carbon Dioxide Level 23, Calcium Level 8.3L, Aspartate Amino Transf (AST/SGOT) 28, Alanine Aminotransferase (ALT/SGPT) 41, Alkaline Phosphatase 279H, Total Bilirubin 0.3, Total Protein 6.5, Albumin 2.1L , Albumin/Globulin Ratio 0.48L, Anion Gap 13, White Blood Count 9.7, Red Blood Count 3.26L, Hemoglobin 9.1L, Hematocrit 29.7L, Mean Corpuscular Volume 91.1, Mean Corpuscular Hemoglobin 28.0, Mean Corpuscular Hemoglobin Concent 30.8L, Red Cell Distribution Width 11.9, Platelet Count 246, Neutrophils (%) (Auto) 72.7H, Lymphocytes (%) (Auto) 13.9L, Monocytes (%) (Auto) 7.3H, Eosinophils (%) (Auto) 3.5H, Basophils (%) (Auto) 0.6, Neutrophils # (Auto) 7.0, Lymphocytes # ( Auto) 1.3L, Monocytes # (Auto) 0.7, Eosinophils # (Auto) 0.3, Basophils # (Auto ) 0.1, Glomerular Filtration Rate 34.9L, Large Unclassified Cells # 0.2, Large Unclassified Cells % 2.0, Magnesium Level 2.4 CBC/BMP Laboratory Tests 08/11/16 05:42 Calcium Level 8.3 L, Aspartate Amino Transf (AST/SGOT) 28, Alanine Aminotransferase (ALT/SGPT) 41, Alkaline Phosphatase 279 H, Total Bilirubin 0.3 , Total Protein 6.5, Albumin 2.1 L, Red Blood Count 3.26 L, Mean Corpuscular Volume 91.1, Mean Corpuscular Hemoglobin 28.0, Mean Corpuscular Hemoglobin Concent 30.8 L, Red Cell Distribution Width 11.9, Neutrophils (%) (Auto) 72.7 H , Lymphocytes (%) (Auto) 13.9 L, Monocytes (%) (Auto) 7.3 H, Eosinophils (%) ( Auto) 3.5 H, Basophils (%) (Auto) 0.6, Neutrophils # (Auto) 7.0, Lymphocytes # ( Auto) 1.3 L, Monocytes # (Auto) 0.7, Eosinophils # (Auto) 0.3, Basophils # (Auto ) 0.1 FSBS Laboratory Tests Test 08/10/16 12:30 08/10/16 16:35 08/10/16 20:10 Range/Units Bedside Glucose (Misc Panel) 182 116 169 83-110 MG/DL Microbiology Microbiology 08/09/16 Blood Culture - Preliminary, Resulted No growth after 24 hours . All specim... 08/09/16 Blood Culture - Preliminary, Resulted No growth after 24 hours . All specim... 08/04/16 Blood Culture - Final, Complete NO GROWTH AFTER 5 DAYS 08/04/16 Blood Culture - Final, Complete NO GROWTH AFTER 5 DAYS 08/11/16 Gram Stain, Received Pending 08/11/16 Sputum Culture, Received Pending 08/07/16 MRSA Screen - Final, Complete Staph.aureus Methicillin Resis 08/04/16 MRSA Screen - Final, Complete Staph.aureus Methicillin Resis 08/04/16 Urine Culture - Final, Complete FAITH VALDES MD Aug 11, 2016 10:14
[2016-08-11 14:00] VITALS: BP 134/77
[2016-08-11 18:00] VITALS: BP 157/72
[2016-08-11] MEDS: ENOXAPARIN 30 MG/0.3 ML SYR (J1650) SC SCH (20:49)
[2016-08-11 22:00] VITALS: BP 184/72
[2016-08-12 02:00] VITALS: BP 135/70
[2016-08-12] MEDS: IPRATROPIUM 0.5MG/ALBUTEROL 2.5MG INH SOL UD 3ML (DUONEB)(J7620) NEB SCH ×4 (02:00→20:13)
[2016-08-12 06:00] VITALS: BP 142/66
[2016-08-12 07:58] LABS: BASO # 0.1 K/mm3 (0.0-0.2); BASO % 0.8 % (0.0-1.0); EOS # 0.4 K/mm3 (0.0-0.50); EOS % 3.8 % (0.0-3.0); ERYTHROCYTE SEDIMENTATION RATE 126 mm/hr (0-20); LARGE UNSTAINED CELL # 0.2 K/mm3 (0.0-0.4); LARGE UNSTAINED CELL % 1.7 % (0.0-4.0); LYMPH # 1.5 K/mm3 (1.5-4.5); LYMPH % 13.1 % (24.0-44.0); MEAN CORPUSCULAR HEMOGLOBIN 27.7 pg (27.0-33.0); MEAN CORPUSCULAR HGB CONC 31.3 g/dl (32.0-36.5); MEAN CORPUSCULAR VOLUME 88.6 fl (80.0-96.0); MONO # 0.7 K/mm3 (0.0-0.8); MONO % 6.4 % (0.0-5.0); NEUTROPHILS # 7.6 K/mm3 (1.8-7.7); NEUTROPHILS % 74.2 % (36.0-66.0); PLATELET COUNT, AUTOMATED 250 k/mm3 (150-450); RED CELL DISTRIBUTION WIDTH 12.8 % (11.5-14.5); WHITE BLOOD COUNT 10.2 K/mm3 (4.0-10.0)
[2016-08-12] MEDS: HumaLOG INSULIN (NovoLOG) PER UNIT SC SCH ×4 (08:17→21:42)
[2016-08-12] MEDS: FUROSEMIDE 100 MG/10 ML VIAL (J1940) IV SCH (08:18)
[2016-08-12] MEDS: LEVEMIR (INSULIN DETEMIR) 1 UNITS/0.01ML SC SCH ×2 (08:18→21:42)
[2016-08-12] MEDS: NICOTINE 14 MG/24 HR TRANSDERMAL TD SCH (08:19)
[2016-08-12] MEDS: PREGABALIN 75 MG CAP(LYRICA) PO SCH ×2 (08:19→21:41)
[2016-08-12] MEDS: OMEPRAZOLE 20 MG CAP PO SCH (08:19)
[2016-08-12] MEDS: ASPIRIN 325 MG TAB PO SCH (08:19)
[2016-08-12] MEDS: METOPROLOL SUCC (TopROL XL) 50MG **XL** TAB PO SCH (08:19)
[2016-08-12] MEDS: CLOPIDOGREL 75 MG TAB PO SCH (08:20)
[2016-08-12] MEDS: guaiFENesin ER 600 MG TAB PO SCH ×2 (08:20→21:41)
[2016-08-12] MEDS: CALCIUM/VITAMIN D 250 MG TABLET PO SCH ×2 (08:20→21:41)
--- NOTE | 2016-08-12 08:29 | REP ---
CT abdomen pelvis without IV and oral contrast: Comparison is 08/06/2015. There are small bilateral pleural effusions. These were also present previously. The current pleural effusions are smaller. Cardiac size appears normal. Cardiac size is enlarged previously. The unenhanced hepatic parenchyma is unremarkable. The gallbladder, pancreas and spleen are normal size and unremarkable. The adrenals and kidneys are unremarkable except for a left renal cortical cyst, unchanged. The abdominal aorta is unremarkable except for calcified atheroma, unchanged. There is no bowel distension. Mesentery is unremarkable. There is diverticulosis of the descending colon and sigmoid colon without diverticulitis. This is unchanged. Pelvis: There is no ascites. The previously identified left iliac and femoral adenopathy is again noted, however the lymph nodes have decreased size. The bladder is unremarkable. Impression: No ascites. No focal fluid collections to suggest abscess. No hydronephrosis. No cholelithiasis or biliary duct dilatation. There is diverticulosis without diverticulitis, unchanged. The left iliac and femoral adenopathy has decreased. Lymph nodes now appear upper normal size. There are no lytic, blastic or destructive skeletal changes. Signed by Adam Mota MD 08/10/2016 08:30 A
--- NOTE | 2016-08-12 08:29 | REP ---
PA and lateral chest: Comparison is the portable chest of 08/04/2016. The interstitial infiltrates noted previously have resolved. There are no pleural effusions. There are sternotomy wires and cardiomegaly , unchanged. Pacemaker is unchanged. Signed by Adam Mota MD 08/10/2016 08:25 A
[2016-08-12 09:49] LABS: CALCIUM LEVEL 8.3 MG/DL (8.8-10.2); CREATININE FOR GFR 2.03 MG/DL (0.70-1.30); GLOMERULAR FILTRATION RATE 34.7 (>42); POTASSIUM SERUM 5.2 MEQ/L (3.5-5.1)
[2016-08-12 10:00] VITALS: BP 158/70
--- NOTE | 2016-08-12 11:07 | IPNPDOC ---
Assessment/Plan Date Seen The patient was seen on 08/12/16. Problems Problems: (1) Leucocytosis Status: Acute Problem Text: persistent leucocytosis in th 15 to 16 k range with high esr and crp. no source of infection identified will send c diff SPEP shows 2 m spikes in the gamma region , free light chain ratio is normal , ordered immunofixation of serum. ct abdomen and pelvis done , cxr done reading pending. echo pending. sputum to gram positive cocci in pairs and chains. ID following. (2) SIRS-noninf w ac org dys Status: Acute Problem Text: evidenced by HR 90, temp 100.3, WBC 25, and BP 79/41 upon arrival to ED; recent flu infection but thus far blood and urine cultures are negative; I suspect that this was secondary to dehydration as the patient has a concomitant KOSTAS and has responded to IVF; patient was recently recovering from influenza so had poor appetite and was tired so was not eating or drinking adequately this probably led to his dehydration and KOSTAS. vitals now stabilized, afebrile, WBC improved to 15; continue to follow up cultures; no antibiotics at this time as no clear infection will get CT chest as having low grade fevers. (3) Acute on chronic kidney failure Status: Acute Problem Text: baseline Cr around 1.4 to 1.6; Cr upon admission was 2.53, had increased to 3.0; I suspect this is secondary to dehydration/prerenal; Now improving stabilized around 2.0 restarted lasix. was getting mildly fluid overloaded. (4) Acute on chronic diastolic heart failure Status: Acute Problem Text: now on lasix 80 mg iv as required based on fluid status. came in dehydrated however developed some fluid overload and had some acute diastolic chf. (5) Defibrillator discharge Status: Resolved Problem Text: ICD interogated. ICD did not fire there was no arrhythmia. Patient may have had a myoclonic jerk Dr. Mcpherson consulted; patient denies chest pain; trops were negative (6) CAD (coronary artery disease) Status: Chronic Problem Text: hx of [place] and s/p CABG and stents; no current chest pain; trops negative; continue home ASA, plavix, beta juan daniel; needs to discuss with primary physicians adding a statin (7) HTN (hypertension) Status: Chronic Problem Text: continue home beta juan daniel (8) Diabetes mellitus Status: Chronic Response to Treatment: Uncontrolled Problem Text: patient is unclear on home lantus dosing; SSI while in house and add and adjust levemir accordingly (9) Dyslipidemia Status: Chronic (10) GERD (gastroesophageal reflux disease) Status: Chronic (11) PAD (peripheral artery disease) Status: Chronic Problem Text: has history of bilateral bypasses in the legs says the one on the left was done an year ago and it did not work. Plan / VTE VTE Prophylaxis Ordered?: Yes (lovenox) Plan Advance Directives: DNR Subjective Review of Systems CC/HPI The patient is a 70-year-old male admitted with a reason for visit of Sepsis. Events since last encounter still continues to have cough , says still feels weak , no fever or chills, crp still elevated, wbc better. echo still pending. CT abdomen shows bilateral inguinal lymphadenopathy Objective Physical Examination General Exam: Positive: Alert, Cooperative, No Acute Distress Eye Exam: Positive: EOMI, Negative: Sclera icteric ENT Exam: Positive: Mucous membr. moist/pink Neck Exam: Positive: Supple Chest Exam: Positive: Normal air movement, Rales Heart Exam: Positive: Rate Normal, Regular Rhythm Abdomen Exam: Positive: Normal bowel sounds, Soft Extremity Exam: Negative: Edema Neuro Exam: Positive: Normal Speech Psych Exam: Positive: Mood NL, Oriented x 3 Vital Signs/I&O Vital Signs Date Time Temp Pulse Resp B/P Pulse Ox O2 Delivery O2 Flow Rate FiO2 08/12/16 10:00 97.7 80 18 158/70 92 Room Air I&O- Last 24 Hours up to 6 AM 08/12/16 06:00 Intake Total 1440 ml Output Total 1650 ml Balance -210 ml Laboratory Data Labs 24H Laboratory Tests 2 08/11/16 11:44: Bedside Glucose (Misc Panel) 269H 08/11/16 16:22: Bedside Glucose (Misc Panel) 235H 08/11/16 20:19: Bedside Glucose (Misc Panel) 342H 08/12/16 05:48: Anion Gap 8, White Blood Count 10.2H, Red Blood Count 2.98L, Hemoglobin 8.2L, Hematocrit 26.4L, Mean Corpuscular Volume 88.6, Mean Corpuscular Hemoglobin 27.7 , Mean Corpuscular Hemoglobin Concent 31.3L, Red Cell Distribution Width 12.8, Platelet Count 250, Neutrophils (%) (Auto) 74.2H, Lymphocytes (%) (Auto) 13.1L, Monocytes (%) (Auto) 6.4H, Eosinophils (%) (Auto) 3.8H, Basophils (%) (Auto) 0.8 , Neutrophils # (Auto) 7.6, Lymphocytes # (Auto) 1.5, Monocytes # (Auto) 0.7, Eosinophils # (Auto) 0.4, Basophils # (Auto) 0.1, C-Reactive Protein, Quantitative 17.30H, Blood Urea Nitrogen 51H, Creatinine 2.03H, Sodium Level 138 , Potassium Level 5.2H, Chloride Level 101, Carbon Dioxide Level 29, Calcium Level 8.3L, Erythrocyte Sedimentation Rate 126H, Glomerular Filtration Rate 34.7L, Large Unclassified Cells # 0.2, Large Unclassified Cells % 1.7 08/12/16 07:18: Bedside Glucose (Misc Panel) 169H CBC/BMP Laboratory Tests 08/12/16 05:48 Calcium Level 8.3 L, Red Blood Count 2.98 L, Mean Corpuscular Volume 88.6, Mean Corpuscular Hemoglobin 27.7, Mean Corpuscular Hemoglobin Concent 31.3 L, Red Cell Distribution Width 12.8, Neutrophils (%) (Auto) 74.2 H, Lymphocytes (%) ( Auto) 13.1 L, Monocytes (%) (Auto) 6.4 H, Eosinophils (%) (Auto) 3.8 H, Basophils (%) (Auto) 0.8, Neutrophils # (Auto) 7.6, Lymphocytes # (Auto) 1.5, Monocytes # (Auto) 0.7, Eosinophils # (Auto) 0.4, Basophils # (Auto) 0.1 FSBS Laboratory Tests Test 08/11/16 11:44 08/11/16 16:22 08/11/16 20:19 08/12/16 07:18 Range/Units Bedside Glucose (Misc Panel) 269 235 342 169 83-110 MG/DL Microbiology Microbiology 08/09/16 Blood Culture - Preliminary, Resulted No Growth after 48 hours. All Specime... 08/09/16 Blood Culture - Preliminary, Resulted No Growth after 48 hours. All Specime... 08/04/16 Blood Culture - Final, Complete NO GROWTH AFTER 5 DAYS 08/04/16 Blood Culture - Final, Complete NO GROWTH AFTER 5 DAYS 08/11/16 Gram Stain - Final, Resulted 08/11/16 Sputum Culture, Resulted Pending 08/07/16 MRSA Screen - Final, Complete Staph.aureus Methicillin Resis 08/04/16 MRSA Screen - Final, Complete Staph.aureus Methicillin Resis 08/04/16 Urine Culture - Final, Complete FAITH VALDES MD Aug 12, 2016 11:07
[2016-08-12 14:00] VITALS: BP 158/68
[2016-08-12 18:00] VITALS: BP 140/84
[2016-08-12] MEDS: ENOXAPARIN 30 MG/0.3 ML SYR (J1650) SC SCH (21:40)
[2016-08-12] MEDS: NORCO, ANEXSIA 5/325MG TABLET (HYDROcodone/ACETAMINOPHEN) PO PRN (21:41)
[2016-08-12 22:00] VITALS: BP 172/78
--- NOTE | 2016-08-12 23:07 | IPN ---
INFECTIOUS DISEASE PROGRESS NOTE: 08/12/2016 Aaron seems to be doing great. He states his cough is much improved. He only coughed this morning. He has had no fever in the past 48 hours. His last temperature was on August 10; was 100.4 and none since. He has no nausea, vomiting or diarrhea. No abdominal pain. No fever or chills. He feels well, he is anxious to go home. On 08/11 his white count was 9.7, today it was 10.2, hemoglobin 8.2, hematocrit 26.4, platelets 250. ESR 126. Sodium 138, potassium 5.2, chloride 101, bicarb 29, BUN 51, creatinine 2, glucose 130, calcium 8.3 and CRP 17.3. Blood cultures, four sets, were all negative on 08/04 and 08/09. Urine culture was negative. Methicillin-resistant Staphylococcus aureus (MRSA) screen was positive. Sputum had moderate epithelial cells; few white cells, few gram positive cocci in pairs and chains. CT of the abdomen was done on August 10, which showed no ascites. No cholelithiasis. Diverticulosis, but no diverticulitis. No adenopathy. No blastic lesions. No hydronephrosis. Chest x-ray shows interstitial infiltrates that were previously noted, have resolved. No pleural effusion. IMPRESSION: 1. Fever with elevated sedimentation rate and CRP of unknown reason. He did have influenza and could have a post residual inflammatory response. The patient clinically has improved; has received 5 days of Tamiflu and now feeling much better. 2. Congestive heart failure, has resolved with IV diuresis. Chest x-ray interstitial infiltrates have completely resolved. 3. Coronary artery disease with defibrillator. There is no evidence of defibrillator firing causing his presentation of feeling jolted. PLAN: Monitor as an outpatient; have the patient check his temperature every night. Please order for CBC, sed rate, CRP in 1 week to be done as an outpatient to make sure things have improved, as well as a basic profile.
[2016-08-13 02:00] VITALS: BP 141/60
[2016-08-13] MEDS: IPRATROPIUM 0.5MG/ALBUTEROL 2.5MG INH SOL UD 3ML (DUONEB)(J7620) NEB SCH ×4 (02:00→19:57)
[2016-08-13 06:00] VITALS: BP 160/80
[2016-08-13 06:22] LABS: BASO # 0.1 K/mm3 (0.0-0.2); BASO % 1.1 % (0.0-1.0); EOS # 0.4 K/mm3 (0.0-0.50); EOS % 3.7 % (0.0-3.0); LARGE UNSTAINED CELL # 0.2 K/mm3 (0.0-0.4); LARGE UNSTAINED CELL % 1.9 % (0.0-4.0); LYMPH # 1.4 K/mm3 (1.5-4.5); LYMPH % 12.1 % (24.0-44.0); MEAN CORPUSCULAR HEMOGLOBIN 28.5 pg (27.0-33.0); MEAN CORPUSCULAR HGB CONC 31.6 g/dl (32.0-36.5); MEAN CORPUSCULAR VOLUME 90.4 fl (80.0-96.0); MONO # 0.6 K/mm3 (0.0-0.8); MONO % 5.5 % (0.0-5.0); NEUTROPHILS # 7.8 K/mm3 (1.8-7.7); NEUTROPHILS % 75.6 % (36.0-66.0); PLATELET COUNT, AUTOMATED 261 k/mm3 (150-450); RED CELL DISTRIBUTION WIDTH 12.7 % (11.5-14.5); WHITE BLOOD COUNT 10.3 K/mm3 (4.0-10.0)
[2016-08-13 06:28] LABS: CALCIUM LEVEL 8.2 MG/DL (8.8-10.2); CREATININE FOR GFR 2.21 MG/DL (0.70-1.30); GLOMERULAR FILTRATION RATE 31.5 (>42)
[2016-08-13] MEDS: NORCO, ANEXSIA 5/325MG TABLET (HYDROcodone/ACETAMINOPHEN) PO PRN ×3 (06:52→22:22)
[2016-08-13] MEDS: HumaLOG INSULIN (NovoLOG) PER UNIT SC SCH ×4 (08:51→22:24)
[2016-08-13] MEDS: NICOTINE 14 MG/24 HR TRANSDERMAL TD SCH (08:51)
[2016-08-13] MEDS: CALCIUM/VITAMIN D 250 MG TABLET PO SCH ×2 (08:52→22:21)
[2016-08-13] MEDS: OMEPRAZOLE 20 MG CAP PO SCH (08:52)
[2016-08-13] MEDS: ASPIRIN 325 MG TAB PO SCH (08:52)
[2016-08-13] MEDS: guaiFENesin ER 600 MG TAB PO SCH ×2 (08:52→22:20)
[2016-08-13] MEDS: PREGABALIN 75 MG CAP(LYRICA) PO SCH ×2 (08:52→22:21)
[2016-08-13] MEDS: FUROSEMIDE 100 MG/10 ML VIAL (J1940) IV SCH (08:52)
[2016-08-13] MEDS: LEVEMIR (INSULIN DETEMIR) 1 UNITS/0.01ML SC SCH ×2 (08:53→22:23)
[2016-08-13] MEDS: METOPROLOL SUCC (TopROL XL) 50MG **XL** TAB PO SCH (08:53)
[2016-08-13] MEDS: CLOPIDOGREL 75 MG TAB PO SCH (08:53)
--- NOTE | 2016-08-13 09:50 | IPNPDOC ---
[facility] Cardiology Progress Note Date of Service/Time The patient was seen on 08/13/16 at 09:30. Cardiology Progress Note SUBJECTIVE: Sitting upright in bed, eating breakfast, appears comfortable, has no active complaints. Denies chest pain, SOB or palpitations. OBJECTIVE: Resting in his bedside chair, eating his breakfast and watching television. Appears in no discomfort and is non-labored. PHYSICAL EXAMINATION: VITAL SIGNS: Please see below. GENERAL APPEARANCE: NAD, appears well, alert and orientated. HEENT: NCAT, PERRLA, EOMI, nares patent b/l, tongue midline, moist mucus membranes. LUNGS: CTA b/l, no wheezing, rales, rhonchi or crackles appreciated, minimally diminished expansion b/l HEART: normal s1 and s2, no rubs, gallops or murmurs appreciated. rate in the 80 's. ABDOMEN: soft, non-distended SKIN: intact. EXTREMITIES: no swelling, cyanosis or clubbing appreciated NEUROLOGICAL: no focal deficits appreciated PSYCHIATRIC: affect appropriate LABORATORY WORK: Please see below. ASSESSMENT AND PLAN: Mr. Drake seems to be doing well this morning. He denies being in any discomfort, experiencing chest pain or having palpitations. From a cardiology perspective, Mr. Drake is stable and no new recommendations are advised at this time. It seems that he is being worked up for potential multiple myeloma, he does have an elevated ESR and CRP, hemoglobin also is low with a creatine of 2.2. Will place order for urine electrophoresis studies. Pt may very well require bone marrow bx. upon d/c, will let primary care tend to this. He is okay to discharge from our standpoint. Vital Signs/I&O VS/I&O Vital Signs Date Time Temp Pulse Resp B/P Pulse Ox O2 Delivery O2 Flow Rate FiO2 08/13/16 08:53 80 160/80 08/13/16 07:22 18 08/13/16 06:00 97.8 92 Room Air I&O- Last 24 Hours up to 6 AM 08/13/16 05:59 Intake Total 1120 ml Output Total 1500 ml Balance -380 ml Laboratory Data 24H LABS Laboratory Tests 2 08/12/16 11:37: Bedside Glucose (Misc Panel) 217H 08/12/16 16:41: Bedside Glucose (Misc Panel) 207H 08/12/16 21:19: Bedside Glucose (Misc Panel) 252H 08/13/16 06:02: Anion Gap 6L, White Blood Count 10.3H, Red Blood Count 2.91L, Hemoglobin 8.3L, Hematocrit 26.4L, Mean Corpuscular Volume 90.4, Mean Corpuscular Hemoglobin 28.5 , Mean Corpuscular Hemoglobin Concent 31.6L, Red Cell Distribution Width 12.7, Platelet Count 261, Neutrophils (%) (Auto) 75.6H, Lymphocytes (%) (Auto) 12.1L, Monocytes (%) (Auto) 5.5H, Eosinophils (%) (Auto) 3.7H, Basophils (%) (Auto) 1.1H, Neutrophils # (Auto) 7.8H, Lymphocytes # (Auto) 1.4L, Monocytes # (Auto) 0.6, Eosinophils # (Auto) 0.4, Basophils # (Auto) 0.1, Blood Urea Nitrogen 51H, Creatinine 2.21H, Sodium Level 137, Potassium Level 5.0, Chloride Level 101, Carbon Dioxide Level 30, Calcium Level 8.2L, Glomerular Filtration Rate 31.5L, Large Unclassified Cells # 0.2, Large Unclassified Cells % 1.9 CBC/BMP Laboratory Tests 08/13/16 06:02 Calcium Level 8.2 L, Red Blood Count 2.91 L, Mean Corpuscular Volume 90.4, Mean Corpuscular Hemoglobin 28.5, Mean Corpuscular Hemoglobin Concent 31.6 L, Red Cell Distribution Width 12.7, Neutrophils (%) (Auto) 75.6 H, Lymphocytes (%) ( Auto) 12.1 L, Monocytes (%) (Auto) 5.5 H, Eosinophils (%) (Auto) 3.7 H, Basophils (%) (Auto) 1.1 H, Neutrophils # (Auto) 7.8 H, Lymphocytes # (Auto) 1.4 L, Monocytes # (Auto) 0.6, Eosinophils # (Auto) 0.4, Basophils # (Auto) 0.1 FSBS Laboratory Tests Test 08/12/16 11:37 08/12/16 16:41 08/12/16 21:19 Range/Units Bedside Glucose (Misc Panel) 217 207 252 83-110 MG/DL Microbiology Microbiology 08/09/16 Blood Culture - Preliminary, Resulted No Growth after 72 hours. All specime... 08/09/16 Blood Culture - Preliminary, Resulted No Growth after 72 hours. All specime... 08/04/16 Blood Culture - Final, Complete NO GROWTH AFTER 5 DAYS 08/04/16 Blood Culture - Final, Complete NO GROWTH AFTER 5 DAYS 08/11/16 Gram Stain - Final, Resulted 08/11/16 Sputum Culture, Resulted Pending 08/07/16 MRSA Screen - Final, Complete Staph.aureus Methicillin Resis 08/04/16 MRSA Screen - Final, Complete Staph.aureus Methicillin Resis 08/04/16 Urine Culture - Final, Complete NABILA DOUGLAS DO Aug 13, 2016 09:50
[2016-08-13 10:00] VITALS: BP 138/72
[2016-08-13 14:00] VITALS: BP 120/70
[2016-08-13] MEDS ORDERED: FUROSEMIDE 100 MG/10 ML VIAL (J1940) IV ONE (17:15)
--- NOTE | 2016-08-13 17:20 | IPNPDOC ---
Assessment/Plan Date Seen The patient was seen on 08/13/16. 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 came in dehydrated however developed some fluid overload and had some acute diastolic chf. (4) Defibrillator discharge Status: Resolved Problem Text: ICD interogated. ICD did not fire there was no arrhythmia. Patient may have had a myoclonic jerk Dr. Mcpherson consulted; patient denies chest pain; trops were negative (5) CAD (coronary artery disease) Status: Chronic Problem Text: hx of AL and s/p CABG and stents; no current chest pain; trops negative; continue home ASA, plavix, beta juan daniel; needs to discuss with primary physicians adding a statin (6) HTN (hypertension) Status: Chronic Problem Text: continue home beta juan daniel (7) Diabetes mellitus Status: Chronic Response to Treatment: Uncontrolled Problem Text: patient is unclear on home lantus dosing; SSI while in house and add and adjust levemir accordingly (8) Dyslipidemia Status: Chronic (9) GERD (gastroesophageal reflux disease) Status: Chronic (10) PAD (peripheral artery disease) Status: Chronic Problem Text: has history of bilateral bypasses in the legs says the one on the left was done an year ago and it did not work. (11) Gammopathy with multiple M spikes Status: Acute Problem Text: * questionable multiple myeloma * consult dr Levy Plan / VTE VTE Prophylaxis Ordered?: Yes (lovenox) Plan Advance Directives: DNR Subjective Review of Systems CC/HPI The patient is a 70-year-old male admitted with a reason for visit of Sepsis. Constitutional: Denies: Chills, Fever, Malaise, Night Sweats, Weakness Pulmonary: Denies: Cough, Dyspnea Cardiovascular: Denies: Chest Pain, Lt Headedness, Orthopnea, Palpitations, Paroxysmal Noc. Dyspnea Objective Physical Examination General Exam: Positive: Alert, Cooperative, No Acute Distress Eye Exam: Positive: EOMI, Negative: Sclera icteric ENT Exam: Positive: Mucous membr. moist/pink Neck Exam: Positive: Supple Chest Exam: Positive: Normal air movement, Rales Heart Exam: Positive: Rate Normal, Regular Rhythm Abdomen Exam: Positive: Normal bowel sounds, Soft Extremity Exam: Negative: Edema Neuro Exam: Positive: Normal Speech Psych Exam: Positive: Mood NL, Oriented x 3 Vital Signs/I&O Vital Signs Date Time Temp Pulse Resp B/P Pulse Ox O2 Delivery O2 Flow Rate FiO2 08/13/16 14:00 96.6 78 20 120/70 95 Room Air I&O- Last 24 Hours up to 6 AM 08/13/16 06:00 Intake Total 1110 ml Output Total 1500 ml Balance -390 ml Laboratory Data Labs 24H Laboratory Tests 2 08/12/16 21:19: Bedside Glucose (Misc Panel) 252H 08/13/16 06:02: Anion Gap 6L, White Blood Count 10.3H, Red Blood Count 2.91L, Hemoglobin 8.3L, Hematocrit 26.4L, Mean Corpuscular Volume 90.4, Mean Corpuscular Hemoglobin 28.5 , Mean Corpuscular Hemoglobin Concent 31.6L, Red Cell Distribution Width 12.7, Platelet Count 261, Neutrophils (%) (Auto) 75.6H, Lymphocytes (%) (Auto) 12.1L, Monocytes (%) (Auto) 5.5H, Eosinophils (%) (Auto) 3.7H, Basophils (%) (Auto) 1.1H, Neutrophils # (Auto) 7.8H, Lymphocytes # (Auto) 1.4L, Monocytes # (Auto) 0.6, Eosinophils # (Auto) 0.4, Basophils # (Auto) 0.1, Blood Urea Nitrogen 51H, Creatinine 2.21H, Sodium Level 137, Potassium Level 5.0, Chloride Level 101, Carbon Dioxide Level 30, Calcium Level 8.2L, Glomerular Filtration Rate 31.5L, Large Unclassified Cells # 0.2, Large Unclassified Cells % 1.9 08/13/16 11:34: Urine Total Protein 117.7H 08/13/16 11:40: Bedside Glucose (Misc Panel) 269H 08/13/16 16:46: Bedside Glucose (Misc Panel) 192H CBC/BMP Laboratory Tests 08/13/16 06:02 Calcium Level 8.2 L, Red Blood Count 2.91 L, Mean Corpuscular Volume 90.4, Mean Corpuscular Hemoglobin 28.5, Mean Corpuscular Hemoglobin Concent 31.6 L, Red Cell Distribution Width 12.7, Neutrophils (%) (Auto) 75.6 H, Lymphocytes (%) ( Auto) 12.1 L, Monocytes (%) (Auto) 5.5 H, Eosinophils (%) (Auto) 3.7 H, Basophils (%) (Auto) 1.1 H, Neutrophils # (Auto) 7.8 H, Lymphocytes # (Auto) 1.4 L, Monocytes # (Auto) 0.6, Eosinophils # (Auto) 0.4, Basophils # (Auto) 0.1 FSBS Laboratory Tests Test 08/12/16 21:19 08/13/16 11:40 08/13/16 16:46 Range/Units Bedside Glucose (Misc Panel) 252 269 192 83-110 MG/DL Microbiology Microbiology 08/09/16 Blood Culture - Preliminary, Resulted No Growth after 72 hours. All specime... 08/09/16 Blood Culture - Preliminary, Resulted No Growth after 72 hours. All specime... 08/04/16 Blood Culture - Final, Complete NO GROWTH AFTER 5 DAYS 08/04/16 Blood Culture - Final, Complete NO GROWTH AFTER 5 DAYS 08/11/16 Gram Stain - Final, Complete 08/11/16 Sputum Culture - Final, Complete Klebsiella Pneumoniae 08/07/16 MRSA Screen - Final, Complete Staph.aureus Methicillin Resis 08/04/16 MRSA Screen - Final, Complete Staph.aureus Methicillin Resis 08/04/16 Urine Culture - Final, Complete KIM BATISTA DO Aug 13, 2016 17:20
[2016-08-13 18:00] VITALS: BP 164/74
--- NOTE | 2016-08-13 19:16 | CR.PDOC ---
[facility] Consultation Consultation DATE OF ADMISSION: 08/04/2016 DATE OF CONSULTATION: 08/13/2016 ATTENDING PHYSICIAN: Dr. Rosemary Jacob CONSULTING PHYSICIAN: Dr. Oniel Luke REASON FOR CONSULTATION: Acute kidney injury HISTORY OF PRESENT ILLNESS: Mr. Drake is a 70-year-old male past medical history significant for diastolic heart failure, coronary artery disease status post UT and CABG, hypertension, diabetes, hyperlipidemia, peripheral vascular disease, and GERD who presented to the emergency room on August 04 stating that his defibrillator had fired. Prior to firing, he was diagnosed with the flu and completed treatment. He originally presented with hypotension, fever and was diagnosed with possible sepsis. He was admitted to the hospital and further workup was undertaken. He had a chest CT and abdominal CT which did not show any source of infection. His urinalysis revealed 3+ protein, 3+ glucose and 1+ blood. He underwent SPEP which showed increase in the gammaglobulin. Patient was originally given IV fluids secondary to being hypotensive and dehydrated. He then became fluid overloaded and was diuresis. His renal function on admission was 2.5, with a baseline of about 1.6. Despite his hospital course and the measures taken, his renal function has not significantly improved. He reports that he has chronic shortness of breath with exertion, no increased shortness of breath. No chest pain. He reports that he has been eating and drinking well. No trouble with urinating. He denies any GI symptoms. Nephrology consult was requested due to acute kidney injury. PAST MEDICAL HISTORY: 1. Diastolic heart failure 2. Diabetes. 3. Hypertension. 5. Hyperlipidemia. 6. Coronary artery disease status post UT. 5. Peripheral vascular disease 6. GERD PAST SURGICAL HISTORY: 1. Coronary stents. 2. Femoral-popliteal (fem-pop) bypass bilaterally. 3. Coronary artery bypass graft (CABG) two years ago. 4. Pacemaker/defibrillator insertion SOCIAL HISTORY: The patient quit smoking four years ago. Used to smoke one pack per day for almost 60 years. Drinks occasionally. No illicit drug use. Lives at home alone. ALLERGIES: No known drug allergies. HOME MEDICATIONS: Please see below. REVIEW OF SYSTEMS: GENERAL: No fever, chills, night sweats. No excessive fatigue. HEENT: No headache, lightheadedness or dizziness. No acute changes to vision or hearing. CARDIOVASCULAR: No chest pain, pressure. He has chronic shortness of breath with exertion. No chronic lower extremity edema. GASTROINTESTINAL: No nausea, vomiting, diarrhea, abdominal pain. No hematochezia or melena. GENITOURINARY: No change in urinary frequency. No dysuria or hematuria. ENDOCRINE: Positive for Diabetes. No thyroid disorder. HEMATOLOGIC: No excessive bleeding or bruising. INTEGUMENT: No unusual rashes or skin lesions. MUSCULOSKELETAL: No muscle or joint pains. NEUROLOGIC: No syncope. No paresthesias. No focal deficits. PHYSICAL EXAMINATION: Vital Signs Date Time Temp Pulse Resp B/P Pulse Ox O2 Delivery O2 Flow Rate FiO2 08/13/16 18:16 18 08/13/16 14:00 96.6 78 120/70 95 Room Air I&O- Last 24 Hours up to 6 AM 08/13/16 06:00 Intake Total 1110 ml Output Total 1500 ml Balance -390 ml GENERAL: Alert and oriented. In no acute distress. HEENT: Normocephalic, atraumatic. Shock, sore intact. Pupils are equally reactive to light. No scleral icterus. Moist mucosa. NECK: Supple. No thyromegaly. Jugular venous distention is appreciated. HEART: Normal S1, S2. Regular rate and rhythm. LUNGS: Positive for bilateral crackles. No rhonchi or wheezing appreciated. ABDOMEN: Soft, nontender, nondistended. Bowel sounds are present. SKIN: Warm and dry. Good skin turgor. No rashes noted. EXTREMITIES: 2+ lower extremity edema. He also has presacral edema. No cyanosis. Positive pedal pulses bilaterally. NEUROLOGIC: No focal deficits. Cranial nerves II through XII are grossly intact. Motor and sensation intact. LABORATORY DATA: 08/13/16 06:02 MICROBIOLOGY: Blood cultures show no growth thus far. Urine culture negative. MRSA screen was positive. Sputum was positive for Klebsiella. ASSESSMENT AND PLAN: 1. Acute on chronic kidney disease, likely secondary to fluid overload/heart failure. Patient has been diuresed, however it has not been aggressive enough. His Lasix is being changed to 80 mg IV twice daily and we will reassess his volume status and urinary output tomorrow. Electrolytes are stable. Clinically, he is significantly volume overloaded with elevated jugular veins, lower extremity edema and presacral edema. 2. Leukocytosis and elevated CRP, questionable infection. Patient is no longer febrile. He reports having the flu last week. This is being managed by primary team. He does not appear to be on any antibiotics. 3. History of diastolic heart failure. Volume status is not compensated at this time. We will diuresis more aggressively and monitor. Strict I's and O's. Weigh daily. Maintain 1800 mL fluid restriction. Home dose of torsemide held while being diuresis with IV Lasix. 4. Hypertension. Blood pressure stable. He continues to be on metoprolol. Lisinopril held due to acute kidney injury. 5. New nodular opacity noted on chest CT. He does continue to have a stable calcified nodule as well. 6. Increased gamma globulins with noted M spike. It appears that hem/onc has been consulted. 7. Coronary artery disease status post coronary artery bypass graft (CABG). He is on aspirin and Plavix. He also appears to be on a beta juan daniel. 8. Diabetes. Continue Levemir and insulin sliding scale. 9. Anemia. Hemoglobin is currently 8.3. Continue to follow as this has been trending down from admission. Thank you for the consultation and allowing us to participate in the care of Mr. Drake. We will continue to follow along with you. Allergies Coded Allergies: No Known Drug Allergy (Verified Allergy, Unknown, 10/19/12) TURKEY (Verified Allergy, Unknown, VOMITING, 12/11/10) Home Medications Scheduled Aspirin (Aspirin) 325 Mg Tab 325 MG PO DAILY (Reported) Calcium/Vitamin D (Oyster Shell Calcium 250+ 250-125 mg-Unit) 1 Tab Tab 1 TAB PO BID (Reported) Clopidogrel Bisulfate (Clopidogrel) 75 Mg Tab 75 MG PO DAILY (Reported) Insulin Glargine (Lantus) 1 Units/0.01 Ml Susp 1 DOSE SC BID (Reported) SEE COMMENTS Lisinopril (Lisinopril) 5 Mg Tab 5 MG PO DAILY (Reported) Metoprolol Succinate (Metoprolol Succinate ER) 50 Mg Tab 50 MG PO DAILY ( Reported) Omeprazole (Omeprazole) 40 Mg Cap 40 MG PO DAILY (Reported) Potassium Chloride (Klor-Con M10) 10 Meq Tabcr 10 MEQ PO DAILY (Reported) Pregabalin (Lyrica) 150 Mg Cap 150 MG PO BID (Reported) Torsemide (Torsemide) 100 Mg Tab 100 MG PO DAILY (Reported) Scheduled PRN Albuterol Sulfate (Albuterol Sulfate) 2.5 Mg/3 Ml Nebu 2.5 MG INH QID PRN PRN SHORTNESS OF BREATH (Reported) Guaifenesin/Codeine (Guaifenesin/Codeine 100-10 mg/5Ml) 5 Ml Syrp 5 ML PO Q4H PRN PRN COUGH (Reported) Nitroglycerin (Nitrostat) 0.4 Mg Subl 0.4 MG SL Q5MP PRN PRN CHEST PAIN ( Reported) Oxycodone/Acetaminophen (Percocet 2.5-325 mg) 1 Tab Tab 1 TAB PO Q8H PRN PRN PAIN (Reported) GME ATTESTATION GME ATTESTATION My preceptor for this patient encounter was physically present in the building during the encounter and was fully available. As needed, all aspects of the patient interview, examination, medical decision making process, and medical care plan development were reviewed and approved by the preceptor. Preceptor is aware and concurs with the plan as stated in the body of this note and will attest to such by his/her cosignature. BILL AVELAR DO Aug 13, 2016 19:16
[2016-08-13 22:00] VITALS: BP 160/80
[2016-08-13] MEDS: ENOXAPARIN 30 MG/0.3 ML SYR (J1650) SC SCH (22:22)
[2016-08-14] MEDS: IPRATROPIUM 0.5MG/ALBUTEROL 2.5MG INH SOL UD 3ML (DUONEB)(J7620) NEB SCH ×4 (01:52→19:38)
[2016-08-14 02:00] VITALS: BP 151/80
[2016-08-14 06:00] VITALS: BP 160/78
[2016-08-14 06:38] LABS: BASO % 0.6 % (0.0-1.0); EOS # 0.4 K/mm3 (0.0-0.50); EOS % 4.4 % (0.0-3.0); LARGE UNSTAINED CELL # 0.1 K/mm3 (0.0-0.4); LARGE UNSTAINED CELL % 1.3 % (0.0-4.0); LYMPH % 10.8 % (24.0-44.0); MEAN CORPUSCULAR HEMOGLOBIN 27.8 pg (27.0-33.0); MEAN CORPUSCULAR HGB CONC 30.1 g/dl (32.0-36.5); MEAN CORPUSCULAR VOLUME 92.4 fl (80.0-96.0); MONO # 0.5 K/mm3 (0.0-0.8); MONO % 5.3 % (0.0-5.0); NEUTROPHILS # 6.9 K/mm3 (1.8-7.7); NEUTROPHILS % 77.5 % (36.0-66.0); PLATELET COUNT, AUTOMATED 299 k/mm3 (150-450); RED CELL DISTRIBUTION WIDTH 11.7 % (11.5-14.5); WHITE BLOOD COUNT 8.9 K/mm3 (4.0-10.0)
[2016-08-14 07:07] LABS: CALCIUM LEVEL 8.3 MG/DL (8.8-10.2); CREATININE FOR GFR 2.22 MG/DL (0.70-1.30); GLOMERULAR FILTRATION RATE 31.3 (>42)
[2016-08-14] MEDS: HumaLOG INSULIN (NovoLOG) PER UNIT SC SCH ×4 (08:21→20:44)
[2016-08-14] MEDS: LEVEMIR (INSULIN DETEMIR) 1 UNITS/0.01ML SC SCH ×2 (08:21→20:44)
[2016-08-14] MEDS: FUROSEMIDE 100 MG/10 ML VIAL (J1940) IV SCH ×2 (08:22→17:57)
[2016-08-14] MEDS: ASPIRIN 325 MG TAB PO SCH (08:22)
[2016-08-14] MEDS: NICOTINE 14 MG/24 HR TRANSDERMAL TD SCH (08:22)
[2016-08-14] MEDS: OMEPRAZOLE 20 MG CAP PO SCH (08:22)
[2016-08-14] MEDS: PREGABALIN 75 MG CAP(LYRICA) PO SCH ×2 (08:22→20:43)
[2016-08-14] MEDS: METOPROLOL SUCC (TopROL XL) 50MG **XL** TAB PO SCH (08:23)
[2016-08-14] MEDS: CLOPIDOGREL 75 MG TAB PO SCH (08:23)
[2016-08-14] MEDS: CALCIUM/VITAMIN D 250 MG TABLET PO SCH ×2 (08:23→20:44)
[2016-08-14] MEDS: guaiFENesin ER 600 MG TAB PO SCH ×2 (08:23→20:44)
[2016-08-14 10:00] VITALS: BP 172/76
--- NOTE | 2016-08-14 13:25 | IPNPDOC ---
Date/Time Seen The patient was seen on 08/14/16 at 13:09. Progress Note DATE OF ENCOUNTER: 08/14/2016 SUBJECTIVE: Mr. Drake was seen this morning at bedside. No acute overnight issues. He reports feeling well. No chest pain, chest pressure or increased shortness of breath. No nausea, vomiting, abdominal pain, diarrhea, headache, dizziness. No fevers or chills. Patient reports that he is eating well. He also reports that he is urinating a lot and has had a negative balance of about 1 L. OBJECTIVE: Vital Signs Date Time Temp Pulse Resp B/P Pulse Ox O2 Delivery O2 Flow Rate FiO2 08/14/16 10:00 97.3 82 20 172/76 93 Room Air I&O- Last 24 Hours up to 6 AM 08/14/16 06:00 Intake Total 1975 ml Output Total 3325 ml Balance -1350 ml GENERAL: Alert and oriented. In no acute distress. HEENT: Normocephalic, atraumatic. Extraocular muscles intact. Moist mucosa. NECK: Supple. No thyromegaly. Jugular venous distention is appreciated. HEART: Normal S1, S2. Regular rate and rhythm. Positive systolic ejection murmur heard in the lower left sternal border. LUNGS: Positive for bilateral crackles. No rhonchi or wheezing appreciated. ABDOMEN: Soft, nontender, nondistended. Bowel sounds are present. SKIN: Warm and dry. Good skin turgor. No rashes noted. EXTREMITIES: 1+ lower extremity edema. No cyanosis. Positive pedal pulses bilaterally. NEUROLOGIC: No focal deficits. Motor and sensation intact. LABORATORY DATA: 08/14/16 06:22 ASSESSMENT AND PLAN: 1. Acute on chronic kidney disease, likely secondary to fluid overload/heart failure. Creatinine is essentially unchanged. He continues to be volume overloaded and we will continue diuresing him. He is on IV Lasix 80 mg twice daily. Electrolytes are stable. 2. History of diastolic heart failure. Volume status is not compensated at this time. We will diuresis more aggressively and monitor. Strict I's and O's. Weigh daily. Maintain 1800 mL fluid restriction. Home dose of torsemide held while being diuresed with IV Lasix. 3. Hypertension. Blood pressure is suboptimal. He continues to be on metoprolol and is being diuresed with IV Lasix. Lisinopril held due to acute kidney injury. 4. Increased gamma globulins with noted M spike. Hem/onc was consulted. It doesn 't appear that there is a high concern for malignancy at this time. 5. Anemia. Hemoglobin is currently 8.3. No signs of acute bleeding. Monitor for trend, transfuse if needed. DISPOSITION: Patient should be placed on torsemide 60mg twice a day on discharge. He will need to follow up with nephrology as outpatient. We will continue to follow along while inpatient. GME ATTESTATION GME ATTESTATION My preceptor for this patient encounter was physically present in the building during the encounter and was fully available. As needed, all aspects of the patient interview, examination, medical decision making process, and medical care plan development were reviewed and approved by the preceptor. Preceptor is aware and concurs with the plan as stated in the body of this note and will attest to such by his/her cosignature. BILL AVELAR DO Aug 14, 2016 13:24
[2016-08-14 14:00] VITALS: BP 149/67
--- NOTE | 2016-08-14 17:31 | CR ---
DATE OF CONSULTATION: 08/13/2015 REFERRING PHYSICIAN: Rosemary Jacob MD REASON FOR CONSULTATION: Monoclonal gammopathy, ? multiple myeloma. HISTORY OF PRESENT ILLNESS: Mr. Drake is a 70-year-old man who is currently admitted to [facility] for sepsis. He was given antibiotics and has had an improvement in his symptoms. He was referred to Hematology as he was noted to be anemic, with renal insufficiency, and a serum protein electrophoresis (SPEP) showed two M spikes. 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 The free kappa light chains were slightly elevated at 65.37 mg/L, and the free lambda light chain was elevated at 41.10 with a normal free kappa/ lambda ratio. Mr. Drake reports that he has been feeling better since admission. He reports no back pains. He has good energy levels. His weight has been stable. ON PHYSICAL EXAM: He was lying comfortably in the bed, not in distress. He had pinkish conjunctivae, anicteric sclerae. No oral mucosal lesions. Lungs: Fair air entry. S1, S2. Abdomen was soft, nontender. No guarding. Extremities: Trace bipedal edema. No calf swelling. No calf tenderness. IMPRESSION/PLAN: Mr. Drake had an SPEP which showed hypoalbuminemia, M spike noted in the early gamma region, concentration = 0.18 gm/dL, and another M spike noted in the mid gamma region, concentration = 0.20 gm/dL. He had serum immunofixation, which showed IgG kappa and IgG lambda monoclonal gammopathy. His serum free kappa light chains and serum lambda light chains were slightly elevated, but the ratio was normal. I discussed with Mr. Drake that he has monoclonal/biclonal gammopathy but the M spikes were low and the kappa light chains were only slightly elevated as well as the lambda light chain. He does have anemia and renal insufficiency, but he likely does not have multiple myeloma at this point in time. We will arrange to see him for a followup appointment at [facility] once he gets discharged. Thank you for this referral. [facility]ATRIC CENTERJocelyn
[2016-08-14 18:00] VITALS: BP 163/70
[2016-08-14] MEDS: NORCO, ANEXSIA 5/325MG TABLET (HYDROcodone/ACETAMINOPHEN) PO PRN (20:46)
[2016-08-14 22:00] VITALS: BP 138/79
[2016-08-15 02:00] VITALS: BP 134/62
[2016-08-15] MEDS: IPRATROPIUM 0.5MG/ALBUTEROL 2.5MG INH SOL UD 3ML (DUONEB)(J7620) NEB SCH ×2 (02:00→07:40)
--- NOTE | 2016-08-15 05:59 | ECHO ---
DATE OF PROCEDURE: 08/14/2016 DATE OF : 1945 AGE: 70 REFERRING PROVIDER: Phi Stocktno DO PATIENT LOCATION: Room 4223 REASON FOR ECHOCARDIOGRAM: Heart failure, unspecified. 2D MEASUREMENTS: IVS: 1.5 cm LV: 5.7 cm LVPW: 1.5 cm LA: 4.9 cm Aorta: 3.0 cm IVC: 2.4 cm DOPPLER MEASUREMENTS: Peak velocity across the aortic valve: 2.2 m/s Peak velocity across the LVOT: 0.9 m/s Mitral E: 1.5 Mitral A: 1.0 Ratio 1.4 Maximum tricuspid valve velocity: 2.3 m/s 2D COMMENTS: 1. Moderately increased left ventricular wall thickness with mildly enlarged left ventricle but depressed left ventricular systolic function. The anterior septum mid to basal portion appeared to be moderately hypokinetic as well as the basal and mid portion of the inferior wall. The estimated global left ventricular systolic function is 40%. The rest of the left ventricle was mildly hyperkinetic. 2. Mildly enlarged left atrium. Normal right atrium and right ventricle. 3. The atrial septum appeared to be normal without evidence of defect or shunt. 4. Normal aortic root. 5. No pericardial effusion seen. 6. Mildly calcified aortic valve with mildly restricted leaflet motion. Mildly calcified mitral annulus with normal anterior mitral valve leaflet motion. Normal tricuspid valve and pulmonic valve. The proximal pulmonary artery branches also appeared to be normal. 7. The inferior vena cava was mildly enlarged, central venous pressure was mildly elevated. DOPPLER: It detects mild aortic stenosis, mild mitral regurgitation, mild tricuspid regurgitation with probably mild pulmonary hypertension. There are findings consistent with left ventricular diastolic dysfunction, maybe grade 2, left ventricular and diastolic pressure mildly elevated. The calculated pulmonary artery systolic pressure varies between 30 to 40 mmHg. IMPRESSION: 1. Mild to moderate global left ventricular systolic dysfunction with regional wall motion abnormalities consistent with probably underlying coronary artery disease. 2. Aortic valve sclerosis with mild aortic stenosis. 3. Mildly enlarged left atrium with mild mitral regurgitation and mitral annulus calcification. 4. Mild tricuspid regurgitation with mild pulmonary hypertension. 5. There are findings consistent with elevated central venous pressure, the inferior vena cava/IVC was mildly enlarged. 6. Pacemaker/AICD wire artifact noted.
[2016-08-15 06:00] VITALS: BP 148/66
[2016-08-15 06:21] LABS: BASO % 0.5 % (0.0-1.0); EOS # 0.3 K/mm3 (0.0-0.50); EOS % 4.4 % (0.0-3.0); LARGE UNSTAINED CELL # 0.2 K/mm3 (0.0-0.4); LARGE UNSTAINED CELL % 2.7 % (0.0-4.0); LYMPH % 13.1 % (24.0-44.0); MEAN CORPUSCULAR HEMOGLOBIN 27.9 pg (27.0-33.0); MONO # 0.5 K/mm3 (0.0-0.8); MONO % 6.6 % (0.0-5.0); NEUTROPHILS # 5.6 K/mm3 (1.8-7.7); NEUTROPHILS % 72.7 % (36.0-66.0); PLATELET COUNT, AUTOMATED 273 k/mm3 (150-450); RED CELL DISTRIBUTION WIDTH 11.8 % (11.5-14.5); WHITE BLOOD COUNT 7.6 K/mm3 (4.0-10.0)
[2016-08-15 06:36] LABS: CALCIUM LEVEL 8.9 MG/DL (8.8-10.2); CREATININE FOR GFR 2.07 MG/DL (0.70-1.30); POTASSIUM SERUM 4.9 MEQ/L (3.5-5.1)
[2016-08-15] MEDS: NICOTINE 14 MG/24 HR TRANSDERMAL TD SCH (08:12)
[2016-08-15] MEDS: OMEPRAZOLE 20 MG CAP PO SCH (08:12)
[2016-08-15] MEDS: ASPIRIN 325 MG TAB PO SCH (08:12)
[2016-08-15 08:13] VITALS: BP 148/66
[2016-08-15] MEDS: METOPROLOL SUCC (TopROL XL) 50MG **XL** TAB PO SCH (08:13)
[2016-08-15] MEDS: CLOPIDOGREL 75 MG TAB PO SCH (08:13)
[2016-08-15] MEDS: guaiFENesin ER 600 MG TAB PO SCH (08:13)
[2016-08-15] MEDS: PREGABALIN 75 MG CAP(LYRICA) PO SCH (08:13)
[2016-08-15] MEDS: CALCIUM/VITAMIN D 250 MG TABLET PO SCH (08:13)
[2016-08-15] MEDS: FUROSEMIDE 100 MG/10 ML VIAL (J1940) IV SCH (08:14)
[2016-08-15] MEDS: LEVEMIR (INSULIN DETEMIR) 1 UNITS/0.01ML SC SCH (08:16)
[2016-08-15] MEDS: HumaLOG INSULIN (NovoLOG) PER UNIT SC SCH (08:16)
[2016-08-15] MEDS ORDERED: TORSEMIDE 20 MG TAB PO SCH ×2 (09:00→17:00)
[2016-08-15 10:00] VITALS: BP 153/67
[2016-08-15] MEDS ORDERED: DEMA20TA6 PO (10:25)
--- NOTE | 2016-08-15 16:43 | IPNPDOC ---
Date Seen The patient was seen on 08/15/16. Progress Note DATE OF ENCOUNTER: 08/15/2016 SUBJECTIVE: Mr. Drake was seen this morning at bedside. No acute overnight issues. He reports feeling well. No chest pain, chest pressure or increased shortness of breath. No nausea, vomiting, abdominal pain, diarrhea, headache, dizziness. No fevers or chills. Patient reports that he is eating well. He had a negative balance of 1098ml in previous 24 hours. OBJECTIVE: Vital Signs Date Time Temp Pulse Resp B/P Pulse Ox O2 Delivery O2 Flow Rate FiO2 08/15/16 10:00 98.0 80 18 153/67 91 Room Air I&O- Last 24 Hours up to 6 AM 08/15/16 06:00 Intake Total 1940 ml Output Total 3003 ml Balance -1063 ml GENERAL: Alert and oriented. In no acute distress. HEENT: Normocephalic, atraumatic. Extraocular muscles intact. Moist mucosa. NECK: Supple. No thyromegaly. Jugular venous distention is appreciated. HEART: Normal S1, S2. Regular rate and rhythm. Positive systolic ejection murmur. LUNGS: Positive for faint bilateral crackles. No rhonchi or wheezing appreciated. ABDOMEN: Soft, nontender, nondistended. Bowel sounds are present. SKIN: Warm and dry. Good skin turgor. No rashes noted. EXTREMITIES: Mild lower extremity edema. No cyanosis. Positive pedal pulses bilaterally. NEUROLOGIC: No focal deficits. Motor and sensation intact. LABORATORY DATA: 08/15/16 06:06 ASSESSMENT AND PLAN: 1. Acute on chronic kidney disease, likely secondary to fluid overload/heart failure. Creatinine has improved. Electrolytes are stable. He can resume oral diuretics. He will need to follow up with nephrology as outpatient. 2. History of diastolic heart failure. Volume status has improved. He should be on torsemide 60mg twice daily. Maintain 1800 mL fluid restriction. 3. Hypertension. Blood pressure is stable. Continue with metoprolol. Lisinopril held due to acute kidney injury. 4. Increased gamma globulins with noted M spike. Hem/onc was consulted. It doesn 't appear that there is a high concern for multiple myeloma at this time. He will need to follow up with hem/onc as outpatient. 5. Anemia in renal disease. Hemoglobin is currently 8.3. No signs of acute bleeding. Continue to monitor. DISPOSITION: Patient is being discharged today. He will be discharged on torsemide 60mg twice a day. He will follow up with nephrology office on 08/21/16. GME ATTESTATION GME ATTESTATION My preceptor for this patient encounter was physically present in the building during the encounter and was fully available. As needed, all aspects of the patient interview, examination, medical decision making process, and medical care plan development were reviewed and approved by the preceptor. Preceptor is aware and concurs with the plan as stated in the body of this note and will attest to such by his/her cosignature. ATTENDING NOTE Nephrology: Pt was examined in the AM during work rounds. OK to discharge from nephrology stand point. Follow up in the clinic. Rest of plan as per resident's note. BILL AVELAR DO Aug 15, 2016 16:43 DARLYN NG MD Aug 18, 2016 21:41
== END 2016-08-15 11:48 | disposition home health service (06) | DRG 682 ==
LOC: M ED 10:31 → M ED INP 15:06 → M ICU 18:31 → M MSPAV 08-07 10:38
PROVIDERS: ADMIT Internal Medicine; ATTEND Internal Medicine
DX: N17.9 Acute kidney failure, unspecified (principal); R65.11 Systemic inflammatory response syndrome (SIRS) of non-infectious origin with acute organ dysfunction; I50.33 Acute on chronic diastolic (congestive) heart failure; I13.0 Hypertensive heart and chronic kidney disease with heart failure and stage 1 through stage 4 chronic kidney disease, or unspecified chronic kidney disease; E11.40 Type 2 diabetes mellitus with diabetic neuropathy, unspecified; E78.5 Hyperlipidemia, unspecified; I25.2 Old myocardial infarction; K21.9 Gastro-esophageal reflux disease without esophagitis; I25.10 Atherosclerotic heart disease of native coronary artery without angina pectoris; Z66 Do not resuscitate; D47.2 Monoclonal gammopathy; I73.9 Peripheral vascular disease, unspecified; N18.9 Chronic kidney disease, unspecified; E86.0 Dehydration; F17.220 Nicotine dependence, chewing tobacco, uncomplicated; D63.1 Anemia in chronic kidney disease; Z95.810 Presence of automatic (implantable) cardiac defibrillator; Z95.5 Presence of coronary angioplasty implant and graft; Z98.62 Peripheral vascular angioplasty status; Z79.82 Long term (current) use of aspirin; Z79.02 Long term (current) use of antithrombotics/antiplatelets; Z79.4 Long term (current) use of insulin; Z79.899 Other long term (current) drug therapy; Z79.51 Long term (current) use of inhaled steroids

== ENCOUNTER → 2016-08-21 | Outpatient (REF) | payer MEDICARE, MEDICAID ==
[~2016-08-21] MED LIST changes: +ALBU83IN INH; +ASPI81CH PO; +CLOP75TA2 PO; +DEMA20TA6 PO; +GUAI5ELAC PO; +LISI-542 PO; +METO-207 PO; +NITR4TASL SL; +OMEP40CA2 PO; +OYST250T20 PO; +POTA10CA PO; +TORS100T PO
== END ==
LOC: M LAB REF 17:04
PROVIDERS: ATTEND Internal Medicine Nephrology
DX: D50.9 Iron deficiency anemia, unspecified (principal)

== ENCOUNTER 2016-09-19 19:10 | Emergency (ER) | payer MEDICARE, MEDICAID ==
[~2016-09-19] VITALS: Ht 170.2 cm; Wt 97.5 kg
[2016-09-19] MEDS ORDERED: LEVO500T32 PO (19:48)
[2016-09-19] MEDS ORDERED: LASI40TA PO (19:48)
[2016-09-19] MEDS ORDERED: PRED10PA PO (19:48)
[2016-09-19 23:17] LABS: BASO % 0.4 % (0.0-1.0); EOS # 0.1 K/mm3 (0.0-0.50); EOS % 1.4 % (0.0-3.0); LARGE UNSTAINED CELL # 0.1 K/mm3 (0.0-0.4); LYMPH # 0.9 K/mm3 (1.5-4.5); LYMPH % 8.2 % (24.0-44.0); MEAN CORPUSCULAR HEMOGLOBIN 28.8 pg (27.0-33.0); MEAN CORPUSCULAR HGB CONC 32.5 g/dl (32.0-36.5); MEAN CORPUSCULAR VOLUME 88.6 fl (80.0-96.0); MONO # 0.3 K/mm3 (0.0-0.8); MONO % 3.2 % (0.0-5.0); NEUTROPHILS # 8.1 K/mm3 (1.8-7.7); NEUTROPHILS % 85.8 % (36.0-66.0); PLATELET COUNT, AUTOMATED 198 k/mm3 (150-450); RED CELL DISTRIBUTION WIDTH 13.9 % (11.5-14.5); WHITE BLOOD COUNT 9.5 K/mm3 (4.0-10.0)
[2016-09-19 23:40] LABS: CALCIUM LEVEL 8.7 MG/DL (8.8-10.2); CREATININE FOR GFR 1.88 MG/DL (0.70-1.30); POTASSIUM SERUM 4.7 MEQ/L (3.5-5.1)
[2016-09-20] MEDS ORDERED: PREGABALIN 25 MG CAP (LYRICA) PO ONE
[2016-09-20] MEDS ORDERED: PERCOCET 5MG/325MG TAB PO ONE
[2016-09-20] MEDS ORDERED: FUROSEMIDE 100 MG/10 ML VIAL (J1940) IV ONE (01:15)
[2016-09-20] MEDS ORDERED: FUROSEMIDE 40 MG/4 ML VIAL (J1940) IV ONE (01:15)
[2016-09-20 03:11] VITALS: BP 167/81
--- NOTE | 2016-09-20 08:47 | REP ---
PORTABLE CHEST, ONE VIEW: HISTORY: Cough. COMPARISON: 08/10/2016. Increased density is present in the right lower lobe consistent with atelectasis or infiltrate. The heart is upper limits of normal in size. The pulmonary vasculature is normal in appearance. A cardiac pacemaker is present. IMPRESSION: Right lower lobe atelectasis or infiltrate. Signed by Bertrand Miner MD 09/20/2016 09:45 A
--- NOTE | 2016-09-21 08:56 | ECGEPIP ---
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
== END 2016-09-20 03:13 | disposition home or self-care (01) ==
LOC: M ED 20:52
DX: I50.20 Unspecified systolic (congestive) heart failure (principal); J44.9 Chronic obstructive pulmonary disease, unspecified; I73.9 Peripheral vascular disease, unspecified; Z95.1 Presence of aortocoronary bypass graft; Z87.891 Personal history of nicotine dependence; Z91.018 Allergy to other foods; Z79.4 Long term (current) use of insulin; Z79.899 Other long term (current) drug therapy; Z79.82 Long term (current) use of aspirin; Z79.52 Long term (current) use of systemic steroids; E11.9 Type 2 diabetes mellitus without complications; I25.10 Atherosclerotic heart disease of native coronary artery without angina pectoris; I25.2 Old myocardial infarction; E78.00 Pure hypercholesterolemia, unspecified; E78.5 Hyperlipidemia, unspecified; Z87.440 Personal history of urinary (tract) infections
CPT/HCPCS: 36415; 71010; 80048; 83605; 83880; 85025; 93005; 93041; 94760; 96374; 99284; J1940

== ENCOUNTER → 2016-10-11 | Outpatient (CLI) | payer MEDICARE, MEDICAID ==
[~2016-10-11] MED LIST changes: +LASI40TA PO; +LEVO500T32 PO; +PRED10PA PO
[2016-10-11 12:25] LABS: MEAN CORPUSCULAR HEMOGLOBIN 27.8 pg (27.0-33.0); MEAN CORPUSCULAR HGB CONC 31.3 g/dl (32.0-36.5); MEAN CORPUSCULAR VOLUME 88.7 fl (80.0-96.0); RED CELL DISTRIBUTION WIDTH 13.4 % (11.5-14.5); WHITE BLOOD COUNT 9.8 K/mm3 (4.0-10.0)
[2016-10-11 12:28] LABS: CALCIUM OXALATE CRYSTALS SMALL
--- NOTE | 2016-10-11 12:45 | REP ---
Clinical: Pain and swelling. Technique: Otero scale and color Doppler evaluation using linear high frequency transducer. Findings: Ultrasound examination of the right and left lower extremity deep venous structures from the common femoral vein to the popliteal vein demonstrates normal compressibility flow and wave patterns in response to respiration and augmentation. There is no evidence for deep venous thrombosis. Incidental note is made of a right groin node measuring 4.5 x 1.4 x 5.0 cm and 1.6 cm ovoid hypoechoic subdermal lesion which may reflect lymph node or sebaceous cyst. Impression: No evidence for deep venous thrombosis. Right groin noted and possible sebaceous cyst. Signed by Erwin Rodriguez MD 10/11/2016 12:35 P
[2016-10-11 12:49] LABS: ALBUMIN 2.7 GM/DL (3.2-5.2); ALBUMIN/GLOBULIN RATIO 0.77 (1.00-1.93); BILIRUBIN,TOTAL 0.3 MG/DL (0.2-1.0); CALCIUM LEVEL 8.4 MG/DL (8.8-10.2); CREATININE FOR GFR 2.07 MG/DL (0.70-1.30); POTASSIUM SERUM 4.6 MEQ/L (3.5-5.1); TOTAL PROTEIN 6.2 GM/DL (6.4-8.2)
== END ==
LOC: M LAB 11:44
PROVIDERS: ATTEND Internal Medicine Cardiovascular Disease
DX: R60.0 Localized edema (principal); R93.8 Abnormal findings on diagnostic imaging of other specified body structures

== ENCOUNTER 2016-10-18 12:20 | Inpatient (IN) | payer MEDICARE, MEDICAID ==
[~2016-10-18] VITALS: Ht 170.2 cm; Wt 86.0 kg
[2016-10-18] MEDS ORDERED: LISI10TA4 PO (13:05)
--- NOTE | 2016-10-18 13:38 | REP ---
PORTABLE CHEST: AP portable view of the chest is performed. COMPARISON: 09/19/2016. Once again, there is cardiomegaly and vascular congestion. There is mild right basilar atelectasis/infiltrate unchanged. There is probably a small right effusion. There are multiple sternal wires. There is a left pacemaker. The mediastinal silhouette is unchanged. IMPRESSION: Cardiomegaly and vascular congestion. No change in mild right basilar atelectasis/infiltrate since 09/19/2016 exam. Signed by Adam Otero MD 10/18/2016 05:38 P
[2016-10-18 13:53] LABS: BASO % 0.3 % (0.0-1.0); EOS # 0.1 K/mm3 (0.0-0.50); EOS % 1.4 % (0.0-3.0); LARGE UNSTAINED CELL # 0.1 K/mm3 (0.0-0.4); LARGE UNSTAINED CELL % 1.4 % (0.0-4.0); LYMPH % 9.3 % (24.0-44.0); MEAN CORPUSCULAR HEMOGLOBIN 27.2 pg (27.0-33.0); MEAN CORPUSCULAR VOLUME 87.7 fl (80.0-96.0); MONO # 0.6 K/mm3 (0.0-0.8); MONO % 6.8 % (0.0-5.0); NEUTROPHILS # 7.7 K/mm3 (1.8-7.7); NEUTROPHILS % 80.9 % (36.0-66.0); PLATELET COUNT, AUTOMATED 259 k/mm3 (150-450); RED CELL DISTRIBUTION WIDTH 13.4 % (11.5-14.5); WHITE BLOOD COUNT 9.5 K/mm3 (4.0-10.0)
[2016-10-18] MEDS: HEPARIN SOD (PORCINE) 5000 UNITS/ML VIAL SC SCH (14:00)
[2016-10-18 14:13] LABS: ALBUMIN 2.5 GM/DL (3.2-5.2); ALBUMIN/GLOBULIN RATIO 0.51 (1.00-1.93); ALKALINE PHOSPHATASE 148 U/L (45-117); ALT/SGPT 14 U/L (12-78); ANION GAP 4 MEQ/L (8-16); AST/SGOT 12 U/L (15-37); BILIRUBIN,DIRECT 0.1 MG/DL (0.0-0.2); BILIRUBIN,TOTAL 0.4 MG/DL (0.2-1.0); BLOOD UREA NITROGEN 28 MG/DL (7-18); CALCIUM LEVEL 8.9 MG/DL (8.8-10.2); CARBON DIOXIDE LEVEL 32 MEQ/L (21-32); CHLORIDE LEVEL 101 MEQ/L (98-107); CREATININE FOR GFR 1.93 MG/DL (0.70-1.30); GLOMERULAR FILTRATION RATE 36.8 (>42); GLUCOSE, FASTING 234 MG/DL (83-110); POTASSIUM SERUM 4.3 MEQ/L (3.5-5.1); SODIUM LEVEL 137 MEQ/L (136-145); TOTAL PROTEIN 7.4 GM/DL (6.4-8.2)
[2016-10-18] MEDS ORDERED: FUROSEMIDE 40 MG/4 ML VIAL (J1940) IV ONE (14:45)
[2016-10-18] MEDS ORDERED: SPIR50TA2 PO (16:26)
[2016-10-18] MEDS ORDERED: INSULANT SC (16:27)
[2016-10-18] MEDS ORDERED: ALBUTEROL SULFATE 2.5 MG/0.5 ML INH NEB SOLN INH PRN (16:30)
[2016-10-18] MEDS ORDERED: OXYC1TAB23 PO (16:44)
[2016-10-18] MEDS ORDERED: POTA10CA PO (16:45)
[2016-10-18] MEDS ORDERED: LOSA50TA20 PO (16:45)
[2016-10-18] MEDS ORDERED: TORS20TA2 PO (16:45)
[2016-10-18] MEDS ORDERED: CARV12.5 PO (16:45)
[2016-10-18 18:47] LABS: ANION GAP 7 MEQ/L (8-16); BLOOD UREA NITROGEN 26 MG/DL (7-18); CALCIUM LEVEL 8.6 MG/DL (8.8-10.2); CARBON DIOXIDE LEVEL 29 MEQ/L (21-32); CHLORIDE LEVEL 102 MEQ/L (98-107); CREATININE FOR GFR 1.97 MG/DL (0.70-1.30); GLUCOSE, FASTING 207 MG/DL (83-110); MAGNESIUM LEVEL 2.7 MG/DL (1.8-2.4); POTASSIUM SERUM 4.4 MEQ/L (3.5-5.1); SODIUM LEVEL 138 MEQ/L (136-145)
[2016-10-18 19:50] LABS: INR 1.27
[2016-10-18] MEDS: FUROSEMIDE 40 MG/4 ML VIAL (J1940) IV SCH (20:00)
[2016-10-18 20:27] LABS: ANION GAP 6 MEQ/L (8-16); BLOOD UREA NITROGEN 28 MG/DL (7-18); CALCIUM LEVEL 8.2 MG/DL (8.8-10.2); CARBON DIOXIDE LEVEL 29 MEQ/L (21-32); CHLORIDE LEVEL 103 MEQ/L (98-107); CREATININE FOR GFR 1.93 MG/DL (0.70-1.30); GLOMERULAR FILTRATION RATE 36.8 (>42); GLUCOSE, FASTING 249 MG/DL (83-110); POTASSIUM SERUM 4.5 MEQ/L (3.5-5.1); SODIUM LEVEL 138 MEQ/L (136-145)
[2016-10-18] MEDS ORDERED: CARVedilol 3.125 MG TAB PO SCH (21:00)
--- NOTE | 2016-10-18 21:06 | ECGEPIP ---
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
--- NOTE | 2016-10-18 21:15 | HPE ---
DATE OF ADMISSION: 10/18/2016 PRIMARY CARE PROVIDER: BENEDICT Sanders [employer]USTRI[employer] RET[employer]OFIT DESIGNER: Abhijit Mcpherson MD CHIEF COMPLAINT: Shortness of breath. Chest tightness. Epigastric abdominal pain. HISTORY OF PRESENT ILLNESS: This is a 70-year-old male with history of type 2 diabetes, hypertension, hyperlipidemia, congestive heart failure (CHF), systolic dysfunction, ejection fraction (EF) of 40%, automatic implantable cardioverter-defibrillator (AICD) pacemaker insertion, coronary artery disease (CAD), myocardial infarction (PR), fem-pop bilaterally, peripheral vascular disease, coronary artery bypass graft (CABG) 2014, previous smoker, one pack a day for 57 years, quit 4 years ago. Lives alone, walks with a walker. Presents to the emergency room with three day history of nausea, vomiting, epigastric abdominal pain, chest tightness radiating to the back with persistent diarrhea every time he eats. The patient has worsening pain when he lies down. Describes this in the midback. No radiation to the jaw or left arm. No diaphoresis. Has been increasingly short of breath and has been dry heaving and throwing up, and has had a dry cough without fever, chills. He has had some weight gain of about 15 pounds. Usual weight is around 205 pounds. Currently at 215, 217 pounds. He has been diuresed by his urology nurse, but still with chronic edema and worsening shortness of breath prompting him to present to the emergency room. No medications were taken for his chest pain. Ameliorating factor was to sit still and lie down, worsening when he ambulates. He usually drinks 4 to 5 bottles of water at home, 8 ounces of milk daily, usually less than a liter of water, but he noncompliant with a salt restriction and has been eating cans of Ravioli throughout the week, mashed potatoes and gravy. In the ER, the patient was found to have CHF on x-ray exam. Has jugular venous distention (JVD), lower extremity edema and rales. He has chronic right basilar infiltrate, atelectasis on the x-ray and change from previous. No white count or fevers. Hospitalist service was called for admission for CHF exacerbation. Evaluation of epigastric and chest pain. PAST MEDICAL HISTORY: Diabetes. Hypertension. Hyperlipidemia. CAD. CHF, EF 40%. Chronic kidney disease, stage III. At baseline creatinine. PAST SURGICAL HISTORY: Coronary stents. Pacemaker defibrillator insertion. Fem-pop bypass bilaterally. CABG two years ago. ALLERGIES: No known drug allergies. TURKEY. HOME MEDICATIONS: - albuterol sulfate as needed every 4 hours - aspirin 325 daily - calcium 1 capsule twice a day - Plavix 75 daily - Lasix 40 daily - guaifenesin 5 mL every 4 as needed - Lantus insulin twice a day - metoprolol 50 daily - nitroglycerin 0.4 as needed - Prilosec 40 daily - Lyrica 150 twice a day - torsemide 60 mg twice a day SOCIAL HISTORY: The patient lives alone. Has a daughter involved in his care. Drinks occasionally. Used to smoke a pack a day for 57 years, quit 4 years ago. Walks with a walker. FAMILY HISTORY: Noncontributory due to age. REVIEW OF SYSTEMS: 12-point system otherwise negative. PHYSICAL EXAMINATION: Temperature 96.8, pulse 79, respiratory rate 18, blood pressure 184/70. 99% on 2 liters nasal cannula. GENERAL: Awake, alert, oriented times three. Providing history. Positive jugular venous distention. LUNGS: Diminished. Bilateral rales and rhonchi. HEART: S1, S2. Sinus rhythm. ABDOMEN: Soft, slightly distended. Tender epigastric region. No rebound, guarding. Positive bowel sounds in four quadrants. EXTREMITIES: 2+ edema to the sacrum. LABORATORY DATA: White count 9.5, hemoglobin 9, hematocrit 29, platelet count 259. Sodium 139, potassium 4.3, chloride 101, bicarbonate 32, BUN 28, creatinine 1.93, glucose 234, calcium 8.9, total bilirubin 0.4, direct bilirubin 0.1. AST 12, ALT 14, alkaline phosphatase 148, total CK 89, MB fraction is 3, troponin less than 0.02. BNP 2490. Total protein 7.4, albumin 2.5. Baseline creatinine 2.07. 10/18/2016 chest x-ray: Cardiomegaly, vascular congestion. No change in mild right basilar atelectasis or infiltrate since 09/19/2016. ASSESSMENT AND PLAN: This is a 70-year-old male with history of systolic heart failure at 40%, mild pulmonary hypertension, diabetes, hypertension, follows with Dr. Schneider, noncompliant with his salt intake, presents to the emergency room with chest pain, shortness of breath, worsening lower extremity edema, nausea, vomiting, and diarrhea. CURRENT ISSUES: 1. CHF. Systolic dysfunction. Acute decompensation. Strict Intake and output (I and O) daily, fluid restriction, Lasix, avoid nephrotoxins, renally dose all medications. Continue diuresis until euvolemic. Continue with fluid restriction and salt intake restriction. Cardiac rehabilitation as outpatient. Cycle cardiac markers and monitor 12-leak EKG for acute ST changes. EKG shows sinus rhythm, ventricular rate of 80, possible left atrial enlargement. Nonspecific ST-T changes. 2. Diarrhea. Check a GI panel. Lasix diuresis for now for heart failure. Monitor for dehydration. 3. Chronic kidney disease, stage III, at baseline creatinine. Monitor intake and output (I and Os), daily weights, fluid restriction. Avoid nephrotoxins. Renally dose all medications. 4. Epigastric and right upper quadrant abdominal pain. Rule out gallbladder disease. Obtain gallbladder ultrasound, nothing by mouth (npo) for the procedure. Resume diet if tolerated. 5. History of CAD, stents, CABG two years ago. Continue on aspirin and Plavix. 6. Type 2 diabetes. Continue on sliding scale. Consistent carbohydrate diet if tolerated, and nausea, vomiting and diarrhea have subsided. For now keep on clear diet, advance as tolerated. 7. Hypertension. Continue with home medications, metoprolol. Hold of on lisinopril until patient's abdominal pain and diarrhea is improved. 8. Reflux. Continue on Prilosec. ADDENDUM: 10/18/2016, christopher The patient's gallbladder ultrasound shows chronic cholecystitis. The patient will be placed on a clears diet and interventional radiology for cholecystotomy tube placement on Friday. If worsening abdominal pain, change to nothing by mouth and surgical consultation.
--- NOTE | 2016-10-18 21:16 | REP ---
GALLBLADDER ULTRASOUND: 10/18/2016. Clinical history: Gastric abdominal pain. Nausea and vomiting. Sonographic evaluation of the right upper quadrant shows the liver generally homogeneous in echotexture. There is no gross hepatomegaly, hepatic mass or intrahepatic biliary dilatation. Gallbladder shows sludge and multiple stones, some with shadowing. Has a wall thickness of up to 3 mm. No pericholecystic fluid. Common duct 3.3 mm without a filling defect. Pancreas is not seen due to extensive gas shadowing. Right kidney 10.9 x 4.8 x 5.5 cm without hydronephrosis or stone. Impression: 1. There was sludge and multiple mobile calculi in the gallbladder with thickened wall up to 3 mm suggesting cholelithiasis and chronic cholecystitis. I see no intrahepatic biliary dilatation and the common duct 3.3 mm and normal. There was a positive sonographic Berger's sign, however. 2. Liver homogeneous without focal lesion, biliary dilatation or adjacent ascites. 3. Pancreas obscured by gas shadowing. The right kidney unremarkable. Signed by Gilberto Petty MD 10/19/2016 08:03 P
[2016-10-18] MEDS ORDERED: PERCOCET 5MG/325MG TAB PO ONE (22:30)
[2016-10-19] VITALS (7 sets, daily range): BP systolic 136–175; BP diastolic 65–87; PULSE 73
[2016-10-19] MEDS: FUROSEMIDE 40 MG/4 ML VIAL (J1940) IV SCH ×5 (01:59→16:31)
[2016-10-19] MEDS: HEPARIN SOD (PORCINE) 5000 UNITS/ML VIAL SC SCH ×4 (02:00→22:11)
[2016-10-19 06:22] LABS: MEAN CORPUSCULAR HEMOGLOBIN 27.2 pg (27.0-33.0); MEAN CORPUSCULAR HGB CONC 30.7 g/dl (32.0-36.5); MEAN CORPUSCULAR VOLUME 88.7 fl (80.0-96.0); RED CELL DISTRIBUTION WIDTH 13.4 % (11.5-14.5); WHITE BLOOD COUNT 8.5 K/mm3 (4.0-10.0)
[2016-10-19 06:48] LABS: ALBUMIN 2.5 GM/DL (3.2-5.2); ALBUMIN/GLOBULIN RATIO 0.64 (1.00-1.93); BILIRUBIN,DIRECT 0.1 MG/DL (0.0-0.2); BILIRUBIN,TOTAL 0.3 MG/DL (0.2-1.0); CALCIUM LEVEL 8.1 MG/DL (8.8-10.2); CREATININE FOR GFR 1.99 MG/DL (0.70-1.30); GLOMERULAR FILTRATION RATE 35.5 (>42); POTASSIUM SERUM 4.2 MEQ/L (3.5-5.1); TOTAL PROTEIN 6.4 GM/DL (6.4-8.2)
--- NOTE | 2016-10-19 08:30 | ECGEPIP ---
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
[2016-10-19] MEDS ORDERED: ONDANSETRON 4MG/2ML VIAL (J2405) IV SCH (08:45)
[2016-10-19] MEDS ORDERED: MORPHINE 2 MG/ML 1ML SYRINGE IV ONE (08:45)
[2016-10-19] MEDS: SILVER SULFADIAZINE 1% CR 50 GM JAR TOP SCH ×2 (09:00→22:11)
[2016-10-19] MEDS: ONDANSETRON 4MG/2ML VIAL (J2405) IV PRN (09:17)
[2016-10-19] MEDS: ASPIRIN 325 MG TAB PO SCH (09:17)
[2016-10-19] MEDS: CLOPIDOGREL 75 MG TAB PO SCH (09:18)
[2016-10-19] MEDS: METOPROLOL SUCC (TopROL XL) 50MG **XL** TAB PO SCH (09:18)
[2016-10-19] MEDS: SPIRONOLACTONE 25 MG TAB PO SCH (09:18)
[2016-10-19] MEDS: OMEPRAZOLE 20 MG CAP PO SCH (09:18)
--- NOTE | 2016-10-19 10:32 | CR ---
DATE OF CONSULTATION: 10/19/2016 REASON FOR CONSULTATION: Abdominal pain, question gallbladder related. HISTORY OF PRESENT ILLNESS: The patient is a 70-year-old male who presents with a longstanding history of diarrhea for the last year, year and a half who has had some epigastric discomfort, nausea, vomiting with shortness of breath. Over the last month, the patient states that his shortness of breath is worse when he ambulates, worse when he is lying down. He notices that he has this pressure in his upper abdomen. He has difficulties eating. He does not have any reflux symptoms. No indigestion or heartburn although he states he has had two colonoscopies in the last year up in [place]. He has not had an upper endoscopy. He does not recall if he has had an upper GI performed with small-bowel follow-through. He has had a CT scan here in July of this year and was performed for sepsis workup. He did have some pleural effusions at that time but he did not have any contrast given with his CT scan. No oral, no IV contrast. I do think there is some suggestion of a small amount of ascites around the liver, although given his respiratory issues, this may have been respiratory variation that caused this haziness present. His ultrasound of his gallbladder shows that he has some gallstones. There is some question of chronic cholecystitis. However the criteria do not need the numbers consistent with acute cholecystitis. He has a normal white count. The patient complains of epigastric pain. PAST MEDICAL HISTORY: Significant for: History of diabetes mellitus. History of hypertension. History of hyperlipidemia. History of coronary disease. History of congestive heart failure. History of chronic kidney disease. History of coronary stents. History of pacemaker defibrillator insertion. History of fem-pop bypass. History of coronary artery bypass graft (CABG). MEDICATIONS INCLUDE: - albuterol - aspirin - calcium - Plavix - Lasix - guaifenesin - insulin - metoprolol - nitroglycerin - Prilosec - Lyrica - torsemide PHYSICAL EXAM: Reveals a 70-year-old male who looks much older than stated age. HEENT is unremarkable. Lungs reveal bilateral crackles as well as rhonchi. Diminished bilaterally. Heart is regular with multiple irregular beats. Abdomen is soft, mildly distended, tympanic all across the upper abdomen and tender in the epigastric area to deep palpation but no significant guarding or rebound. No right upper quadrant pain is appreciated. White count is normal. LFTs are normal except for slightly elevated alk phos. IMPRESSION AND PLAN: 1. Gallstones. The patient does have some gallstones. I am not convinced he has any evidence of acute cholecystitis at this time and I am not seeing evidence of operative intervention needed at this time. Also given that I feel that this is very unlikely secondary to acute cholecystitis, percutaneous drainage at this time is not indicated. However, if this concern is still present, performing a HIDA scan is reasonable to rule out acute cholecystitis. Once again this would be much lower down on my differential of problems concerning this individual. 2. Epigastric pain. The patient has epigastric pain and GI distress issues. It may be that the patient has some ongoing gastritis as an issue. May have a symptomatic hiatal hernia, etc. I do feel that we can start him on some Carafate to see if this makes a difference with his abdominal pain. However, given his history of diarrhea, negative colonoscopies, I do feel that an upper GI with small-bowel follow-through is warranted prior to his discharge. If this shows some significant inflammatory process or if his abdominal pain still is persistent over the ensuing few days, I would recommend an upper endoscopy. Easily with his congestive heart failure issues and cardiac issues, could have either hepatic congestion, gastropathy secondary to this, etc., but I do feel that it is reasonable to advance his diet at this point given a normal white count and tolerance of clears. 3. Lower extremity blisters/healing ulcers. The patient has what appears to the some significant blisters that occurred and these were relatively superficial on the majority of his feet, however, the heel ulcers are much deeper and still have some gangrenous portions that I anticipate will slough as he continues to have dressing changes. I would recommend that continuing with some Silvadene dressing changes are warranted at this time with a dry sterile dressing twice daily basis.
--- NOTE | 2016-10-19 12:50 | IPNPDOC ---
Date Seen The patient was seen on 10/19/16. Progress Note SUBJECTIVE: Patient tells me that his shortness of breath is slightly better than last night but not completely gone. He tells me that he has dry heaves but only after coughing fit he denies kasandra abdominal pain. He tells me that his epigastrium hurts if he pushes down on it he denies fevers chills chest pain lightheadedness dizziness or nausea at the present time OBJECTIVE PHYSICAL EXAMINATION: VITAL SIGNS: Please see below. GENERAL: Obese elderly man sitting on the edge of his bed watching television he does not appear to be in any acute distress HEENT: Pupils equally round reactive to light he has moist mucous membranes there is some elevation central venous pressure CARDIOVASCULAR: S1 S2 regular. RESPIRATORY: Diminished breath sounds at the bases scattered rales in the lower third sounds congested. ABDOMINAL: Obese bowel sounds present abdomen soft EXTREMITIES: Bilateral lower heel dressings are clean dry and intact with gauze bandages he has 2+ edema bilaterally LABORATORY DATA: Please see below. MICROBIOLOGY: Please see below. IMAGING: Gallbladder U/S:1. There was sludge and multiple mobile calculi in the gallbladder with thickened wall up to 3 mm suggesting cholelithiasis and chronic cholecystitis. I see no intrahepatic biliary dilatation and the common duct 3.3 mm and normal. There was a positive sonographic Berger's sign, however. 2. Liver homogeneous without focal lesion, biliary dilatation or adjacent ascites. 3. Pancreas obscured by gas shadowing. The right kidney unremarkable." CXR:"Cardiomegaly and vascular congestion. No change in mild right basilar atelectasis/infiltrate since 09/19/2016 exam." Echocardiogram: Aug 2016:" 1. Mild to moderate global left ventricular systolic dysfunction with regional wall motion abnormalities consistent with probably underlying coronary artery disease. 2. Aortic valve sclerosis with mild aortic stenosis. 3. Mildly enlarged left atrium with mild mitral regurgitation and mitral annulus calcification. 4. Mild tricuspid regurgitation with mild pulmonary hypertension. 5. There are findings consistent with elevated central venous pressure, the inferior vena cava/IVC was mildly enlarged. 6. Pacemaker/AICD wire artifact noted.". DVT prophylaxis ordered?: Heparin ASSESSMENT AND PLAN: This is a 70-year-old man with decompensated congestive heart failure with dry heaves and epigastric discomfort. PROBLEMS: 1. Decompensated congestive heart failure: The patient has reportedly been noncompliant with 2 g sodium diet. He's been started on aggressive IV Lasix we' ll continue with this which just the dose slightly we'll continue to monitor his electrolytes and renal function. He has systolic dysfunction he has an AICD in place normally follows with Dr. Mcpherson. His predominant symptom at this time with orthopnea lower extremity edema which appears to be improving. Patient is on a beta juan daniel Aldactone no LESLY inhibitor at this time secondary to his progressive renal disease 2. Epigastric discomfort dry heaves: His drug user associated only with coughing bouts which may be related to pulmonary edema will see if this resolves with diuresis and volume status optimization Dr. Chakraborty's help is greatly appreciated. I did ask him to see the patient this morning. He does not feel that this is related to gallstones or acute cholecystitis which I agree with he's been started on Carafate in addition to his PPI we will see if this improves his symptoms and suspicion for potential gastritis versus hiatal some dramatic hiatal hernia. I agree that should he have persistent dry heaves and pain without etiology in the face of appropriate treatment of her endoscopy would be indicated his diet has been advanced. For the time being we'll hold off on the percutaneous cholecystostomy drainage 3. Lower extremity ulcers: And Dr. Chakraborty's help is greatly appreciated dressing changes as per his recommendations. 4. Chronic kidney disease appears to be relatively stable the last 6 months continue monitor closely while we are diuresing him 5. Diarrhea: The patient doesn't that he's had this quite chronically is a colonoscopies in the past GI PCR panel is ordered will simply monitor. He is on Bacid 6. Coronary artery disease: History of [place] history of CABG 2 years ago the patient on aspirin Plavix He is also on a beta juan daniel he is not on a statin will defer to Dr. Mcpherson 7. Type 2 diabetes: The patient on sliding-scale insulin continue to monitor fingersticks adequately controlled at this time 8 hypertension: Continue current medications lisinopril is currently on hold blood pressure is adequate 9. Gastric esophageal reflux disease: As outlined above the patient is on a PPI DISPOSITION: We'll continue to monitor the patient closely. VS, I&O, 24H, Fishbone Vital Signs/I&O Vital Signs Date Time Temp Pulse Resp B/P Pulse Ox O2 Delivery O2 Flow Rate FiO2 10/19/16 09:26 16 97 10/19/16 09:18 78 141/87 10/19/16 09:16 Room Air 10/19/16 08:00 97.7 10/18/16 12:41 2 I&O- Last 24 Hours up to 6 AM 10/19/16 06:00 Intake Total 200 ml Output Total 1500 ml Balance -1300 ml Laboratory Data 24H LABS Laboratory Tests 2 10/18/16 13:30: Aspartate Amino Transf (AST/SGOT) 12L, Alanine Aminotransferase (ALT/SGPT) 14, Alkaline Phosphatase 148H, Total Bilirubin 0.4, Direct Bilirubin 0.1, Albumin 2.5L, Albumin/Globulin Ratio 0.51L, Anion Gap 4L, B-Type Natriuretic Peptide 2490H, White Blood Count 9.5, Red Blood Count 3.35L, Hemoglobin 9.1L, Hematocrit 29.4L, Mean Corpuscular Volume 87.7, Mean Corpuscular Hemoglobin 27.2 , Mean Corpuscular Hemoglobin Concent 31.0L, Red Cell Distribution Width 13.4, Platelet Count 259, Neutrophils (%) (Auto) 80.9H, Lymphocytes (%) (Auto) 9.3L, Monocytes (%) (Auto) 6.8H, Eosinophils (%) (Auto) 1.4, Basophils (%) (Auto) 0.3 , Neutrophils # (Auto) 7.7, Lymphocytes # (Auto) 1.0L, Monocytes # (Auto) 0.6, Eosinophils # (Auto) 0.1, Basophils # (Auto) 0.0, Calcium Level 8.9, Creatine Kinase MB 3.0, Creatine Kinase MB Relative Index 3.37, Glomerular Filtration Rate 36.8L, Large Unclassified Cells # 0.1, Large Unclassified Cells % 1.4, Lipase 67L, Total Creatine Kinase 89, Total Protein 7.4, Troponin I < 0.02 10/18/16 16:48: Urine Amorphous Sediment , Urine Appearance HAZY, Urine Color YELLOW, Urine pH 5.0, Urine Specific [place] 1.012, Urine Protein 3+H, Urine Glucose (UA) 3+H, Urine Ketones NEGATIVE, Urine Urobilinogen 0.2, Urine Bilirubin NEGATIVE, Urine Leukocyte Esterase NEGATIVE, Urine Bacteria (Auto) NEGATIVE, Urine Blood 1+H, Urine Calcium Carbonate Cryst(Auto) , Urine Calcium Oxalate Cryst (Auto) , Urine Calcium Phosphate Bre (Auto) , Urine Cellular Casts , Urine Cystine Crystals , Urine Granular Casts (Auto) , Urine Hyaline Casts (Auto) 9, Urine Leucine Crystals , Urine Mucus (Auto) SMALL, Urine Nitrite NEGATIVE, Urine Oval Fat Bodies (Auto) , Urine RBC (Auto) 7H, Urine Renal Epithelial Cells , Urine Sperm (Auto) , Urine Squamous Epithelial Cells 0, Urine Transitional Epithelial Cells , Urine Trichomonas (Auto) , Urine Triple Phosphate Cryst (Auto) , Urine Tyrosine Crystals , Urine Uric Acid Crystals (Auto) , Urine WBC (Auto) 2, Urine Waxy Casts (Auto) , Urine Yeast-Like Cells (Auto) 10/18/16 17:49: Anion Gap 7L, Calcium Level 8.6L, Creatine Kinase MB 3.3, Creatine Kinase MB Relative Index 3.88, Glomerular Filtration Rate 36.0L, Total Creatine Kinase 85 , Troponin I < 0.02, Blood Urea Nitrogen 26H, Creatinine 1.97H, Sodium Level 138 , Potassium Level 4.4, Chloride Level 102, Carbon Dioxide Level 29, Magnesium Level 2.7H 10/18/16 19:31: Anion Gap 6L, Calcium Level 8.2L, Creatine Kinase MB 3.4, Creatine Kinase MB Relative Index 3.36, Glomerular Filtration Rate 36.8L, Total Creatine Kinase 101 , Troponin I < 0.02, Blood Urea Nitrogen 28H, Creatinine 1.93H, Sodium Level 138 , Potassium Level 4.5, Chloride Level 103, Carbon Dioxide Level 29, Activated Partial Thromboplast Time 44.7H, Prothromb Time International Ratio 1.27, Prothrombin Time 16.0H 10/18/16 23:49: Creatine Kinase MB 2.9, Creatine Kinase MB Relative Index 3.97, Total Creatine Kinase 73, Troponin I < 0.02 10/19/16 06:03: Creatine Kinase MB 2.3, Creatine Kinase MB Relative Index 3.02, Total Creatine Kinase 76, Aspartate Amino Transf (AST/SGOT) 8L, Alanine Aminotransferase (ALT/ SGPT) 13, Alkaline Phosphatase 142H, Total Bilirubin 0.3, Direct Bilirubin 0.1, Albumin 2.5L, Albumin/Globulin Ratio 0.64L, Amylase Level 16L, Anion Gap 9, B- Type Natriuretic Peptide 2510H, Calcium Level 8.1L, Glomerular Filtration Rate 35.5L, Lipase 80, Total Protein 6.4 CBC/BMP Laboratory Tests 10/18/16 13:30 Red Blood Count 3.35 L, Mean Corpuscular Volume 87.7, Mean Corpuscular Hemoglobin 27.2, Mean Corpuscular Hemoglobin Concent 31.0 L, Red Cell Distribution Width 13.4, Neutrophils (%) (Auto) 80.9 H, Lymphocytes (%) (Auto) 9.3 L, Monocytes (%) (Auto) 6.8 H, Eosinophils (%) (Auto) 1.4, Basophils (%) ( Auto) 0.3, Neutrophils # (Auto) 7.7, Lymphocytes # (Auto) 1.0 L, Monocytes # ( Auto) 0.6, Eosinophils # (Auto) 0.1, Basophils # (Auto) 0.0 10/18/16 17:49 Calcium Level 8.6 L, Total Creatine Kinase 85 10/18/16 19:31 Calcium Level 8.2 L, Total Creatine Kinase 101 10/19/16 06:03 Red Blood Count 3.34 L, Mean Corpuscular Volume 88.7, Mean Corpuscular Hemoglobin 27.2, Mean Corpuscular Hemoglobin Concent 30.7 L, Red Cell Distribution Width 13.4 Microbiology Microbiology 10/18/16 Urine Culture, Received Pending KYLE PETERS MD Oct 19, 2016 12:50
[2016-10-19] MEDS ORDERED: GLUCAGON FOR INJ 1 MG VIAL (J1610) SC PRN (14:30)
[2016-10-19] MEDS ORDERED: GLUCOSE 4 GM CHEW TABLET PO PRN (14:30)
[2016-10-19] MEDS ORDERED: DEXTROSE 50% 50 ML SYRINGE IV PRN (14:30)
[2016-10-19] MEDS: SUCRALFATE 1 GM TAB PO SCH ×3 (15:08→22:10)
[2016-10-19] MEDS: LACTOBACILLUS ACIDOPHILUS CAP (BACID) PO SCH ×2 (15:09→17:23)
[2016-10-19] MEDS: HumaLOG INSULIN (NovoLOG) PER UNIT SC SCH ×2 (17:24→21:00)
[2016-10-19 19:19] LABS: CREATININE FOR GFR 2.2 MG/DL (0.70-1.30); GLOMERULAR FILTRATION RATE 31.7 (>42); POTASSIUM SERUM 4.7 MEQ/L (3.5-5.1)
[2016-10-19] MEDS ORDERED: PERCOCET 5MG/325MG TAB PO ONE (22:30)
[2016-10-20] VITALS (7 sets, daily range): BP systolic 130–174; BP diastolic 52–79
[2016-10-20 00:15] LABS: MAGNESIUM LEVEL 2.4 MG/DL (1.8-2.4)
[2016-10-20] MEDS: FUROSEMIDE 40 MG/4 ML VIAL (J1940) IV SCH ×4 (00:29→23:57)
[2016-10-20 05:40] LABS: MEAN CORPUSCULAR HEMOGLOBIN 27.2 pg (27.0-33.0); MEAN CORPUSCULAR HGB CONC 30.9 g/dl (32.0-36.5); MEAN CORPUSCULAR VOLUME 88.1 fl (80.0-96.0); RED CELL DISTRIBUTION WIDTH 13.5 % (11.5-14.5); RETIC HEMOGLOBIN CONTENT CHr 26.2 PG (24-36); RETICULOCYTE % ADVIA2120 2.1 % (0.5-1.5); WHITE BLOOD COUNT 6.3 K/mm3 (4.0-10.0)
[2016-10-20] MEDS: HEPARIN SOD (PORCINE) 5000 UNITS/ML VIAL SC SCH ×3 (05:47→21:23)
[2016-10-20 06:06] LABS: ALBUMIN 2.4 GM/DL (3.2-5.2); ALBUMIN/GLOBULIN RATIO 0.63 (1.00-1.93); BILIRUBIN,DIRECT 0.2 MG/DL (0.0-0.2); BILIRUBIN,TOTAL 0.2 MG/DL (0.2-1.0); CALCIUM LEVEL 7.8 MG/DL (8.8-10.2); CREATININE FOR GFR 2.16 MG/DL (0.70-1.30); GLOMERULAR FILTRATION RATE 32.3 (>42); MAGNESIUM LEVEL 2.2 MG/DL (1.8-2.4); PERCENT SATURATION 8.9 % (19.7-37.4); POTASSIUM SERUM 4.3 MEQ/L (3.5-5.1); TOTAL PROTEIN 6.2 GM/DL (6.4-8.2)
[2016-10-20] MEDS ORDERED: metOLazone 2.5 MG TAB PO ONE (06:45)
[2016-10-20] MEDS: SUCRALFATE 1 GM TAB PO SCH ×4 (08:40→20:07)
[2016-10-20] MEDS: ASPIRIN 325 MG TAB PO SCH (08:40)
[2016-10-20] MEDS: CLOPIDOGREL 75 MG TAB PO SCH (08:40)
[2016-10-20] MEDS: OMEPRAZOLE 20 MG CAP PO SCH (08:40)
[2016-10-20] MEDS: LACTOBACILLUS ACIDOPHILUS CAP (BACID) PO SCH ×3 (08:40→17:47)
[2016-10-20] MEDS: HumaLOG INSULIN (NovoLOG) PER UNIT SC SCH ×4 (08:40→20:04)
[2016-10-20] MEDS: METOPROLOL SUCC (TopROL XL) 50MG **XL** TAB PO SCH (08:42)
[2016-10-20] MEDS: SPIRONOLACTONE 25 MG TAB PO SCH (08:42)
[2016-10-20] MEDS: SILVER SULFADIAZINE 1% CR 50 GM JAR TOP SCH ×2 (08:43→21:24)
--- NOTE | 2016-10-20 10:52 | IPNPDOC ---
Date Seen The patient was seen on 10/20/16. Progress Note SUBJECTIVE: Patient tells me that his shortness of breath is slightly better, he tells me today that his shortness of breath is when he sits up and only at funny angles. He is coughing less and having less dry heaves, but they are still present. OBJECTIVE PHYSICAL EXAMINATION: VITAL SIGNS: Please see below. GENERAL: Obese elderly man laying completely flat in bed watching television he does not appear to be in any acute distress HEENT: Pupils equally round reactive to light he has moist mucous membranes there is some elevation central venous pressure CARDIOVASCULAR: S1 S2 regular. RESPIRATORY: Diminished breath sounds at the bases scattered rales in the lower third sounds congested. ABDOMINAL: Obese bowel sounds present abdomen soft EXTREMITIES: Bilateral lower heel dressings are clean dry and intact with gauze bandages he has 2+ edema bilaterally LABORATORY DATA: Please see below. MICROBIOLOGY: Please see below. IMAGING: Gallbladder U/S:1. There was sludge and multiple mobile calculi in the gallbladder with thickened wall up to 3 mm suggesting cholelithiasis and chronic cholecystitis. I see no intrahepatic biliary dilatation and the common duct 3.3 mm and normal. There was a positive sonographic Berger's sign, however. 2. Liver homogeneous without focal lesion, biliary dilatation or adjacent ascites. 3. Pancreas obscured by gas shadowing. The right kidney unremarkable." CXR:"Cardiomegaly and vascular congestion. No change in mild right basilar atelectasis/infiltrate since 09/19/2016 exam." Echocardiogram: Aug 2016:" 1. Mild to moderate global left ventricular systolic dysfunction with regional wall motion abnormalities consistent with probably underlying coronary artery disease. 2. Aortic valve sclerosis with mild aortic stenosis. 3. Mildly enlarged left atrium with mild mitral regurgitation and mitral annulus calcification. 4. Mild tricuspid regurgitation with mild pulmonary hypertension. 5. There are findings consistent with elevated central venous pressure, the inferior vena cava/IVC was mildly enlarged. 6. Pacemaker/AICD wire artifact noted.". DVT prophylaxis ordered?: Heparin ASSESSMENT AND PLAN: This is a 70-year-old man with decompensated congestive heart failure with dry heaves and epigastric discomfort. PROBLEMS: 1. Decompensated congestive heart failure: The patient has reportedly been noncompliant with 2 g sodium diet. He's been started on aggressive IV Lasix we' ll continue with this. Respiratory status is improved, he still has significant water weight on him still. He has systolic dysfunction he has an AICD in place normally follows with Dr. Mcpherson. Patient is on a beta juan daniel Aldactone no LESLY inhibitor at this time secondary to his progressive renal disease. The patient was having NSVT overnight he does have an AICD in place his left lites are optimized he is on a beta juan daniel 2. Epigastric discomfort dry heaves: His dry heaves are only associated with coughing bouts which may be related to pulmonary edema will see if this continues to resolve with diuresis and volume status optimization Dr. Chakraborty' s help is greatly appreciated. He does not feel that this is related to gallstones or acute cholecystitis which I agree with, he's been started on Carafate in addition to his PPI we will see if this improves his symptoms and suspicion for potential gastritis versus symptomatic hiatal hernia. I agree that should he have persistent dry heaves and pain without etiology in the face of appropriate treatment of her endoscopy would be indicated his diet has been advanced. For the time being we'll hold off on the percutaneous cholecystostomy drainage 3. Lower extremity ulcers: And Dr. Chakraborty's help is greatly appreciated dressing changes as per his recommendations. 4. Chronic kidney disease appears to be relatively stable the last 6 months continue monitor closely while we are diuresing him 5. Diarrhea: The patient doesn't that he's had this quite chronically is a colonoscopies in the past GI PCR panel is ordered will simply monitor. He is on Bacid 6. Coronary artery disease: History of [place] history of CABG 2 years ago the patient on aspirin Plavix He is also on a beta juan daniel he is not on a statin will defer to Dr. Mcpherson 7. Type 2 diabetes: The patient on sliding-scale insulin continue to monitor fingersticks adequately controlled at this time 8 hypertension: Continue current medications lisinopril is currently on hold blood pressure is adequate 9. Gastric esophageal reflux disease: As outlined above the patient is on a PPI 10. Anemia appears to be iron deficiency I will start the patient on iron sulfate he would likely benefit from outpatient colonoscopy DISPOSITION: We'll continue to monitor the patient closely. VS, I&O, 24H, Fishbone Vital Signs/I&O Vital Signs Date Time Temp Pulse Resp B/P Pulse Ox O2 Delivery O2 Flow Rate FiO2 10/20/16 08:42 75 148/60 4/9/17 08:00 98.5 20 94 Room Air 10/18/16 12:41 2 I&O- Last 24 Hours up to 6 AM 10/20/16 06:00 Intake Total 720 ml Output Total 1325 ml Balance -605 ml Laboratory Data 24H LABS Laboratory Tests 2 10/19/16 17:19: Bedside Glucose (Misc Panel) 299H 10/19/16 18:13: Anion Gap 6L, Blood Urea Nitrogen 30H, Creatinine 2.20H, Sodium Level 138, Potassium Level 4.7, Chloride Level 100, Carbon Dioxide Level 32, Calcium Level 8.0L, Glomerular Filtration Rate 31.7L 10/19/16 21:35: Bedside Glucose (Misc Panel) 230H 10/20/16 04:48: Anion Gap 7L, Calcium Level 7.8L, Glomerular Filtration Rate 32.3L, Absolute Reticulocyte Count 68, Aspartate Amino Transf (AST/SGOT) 6L, Alanine Aminotransferase (ALT/SGPT) 13, Alkaline Phosphatase 130H, Total Bilirubin 0.2, Direct Bilirubin 0.2, Albumin 2.4L, Albumin/Globulin Ratio 0.63L, Amylase Level 17L, Ferritin 161, Iron Level 22L, Lipase 61L, Magnesium Level 2.2, Percent Reticulocyte Count 2.10H, Reticulocyte Hgb Content (CHr) 26.2, Total Iron Binding Capacity 248L, Total Protein 6.2L, Transferrin % Saturation 8.9L 10/20/16 06:53: B-Type Natriuretic Peptide 1370H, Whole Blood Ionized Calcium 4.5 CBC/BMP Laboratory Tests 10/19/16 18:13 Calcium Level 8.0 L 10/20/16 04:48 Red Blood Count 3.21 L, Mean Corpuscular Volume 88.1, Mean Corpuscular Hemoglobin 27.2, Mean Corpuscular Hemoglobin Concent 30.9 L, Red Cell Distribution Width 13.5 Microbiology Microbiology 10/18/16 Urine Culture - Final, Complete KYLE PETERS MD Oct 20, 2016 10:52
--- NOTE | 2016-10-20 20:26 | ECGEPIP ---
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
[2016-10-20] MEDS: PERCOCET 5MG/325MG TAB PO PRN (22:34)
[2016-10-20] MEDS: ONDANSETRON 4MG/2ML VIAL (J2405) IV PRN (23:41)
[2016-10-21 04:45] VITALS: BP_SYST 158
[2016-10-21 05:40] LABS: MEAN CORPUSCULAR HEMOGLOBIN 27.8 pg (27.0-33.0); MEAN CORPUSCULAR HGB CONC 31.6 g/dl (32.0-36.5); RED CELL DISTRIBUTION WIDTH 13.5 % (11.5-14.5); WHITE BLOOD COUNT 7.5 K/mm3 (4.0-10.0)
[2016-10-21 05:58] LABS: ALBUMIN 2.5 GM/DL (3.2-5.2); ALBUMIN/GLOBULIN RATIO 0.61 (1.00-1.93); BILIRUBIN,DIRECT 0.1 MG/DL (0.0-0.2); BILIRUBIN,TOTAL 0.2 MG/DL (0.2-1.0); CALCIUM LEVEL 8.1 MG/DL (8.8-10.2); CREATININE FOR GFR 2.24 MG/DL (0.70-1.30); MAGNESIUM LEVEL 2.2 MG/DL (1.8-2.4); TOTAL PROTEIN 6.6 GM/DL (6.4-8.2)
[2016-10-21] MEDS: HEPARIN SOD (PORCINE) 5000 UNITS/ML VIAL SC SCH ×3 (06:19→22:01)
[2016-10-21] MEDS: ONDANSETRON 4MG/2ML VIAL (J2405) IV PRN (07:28)
[2016-10-21] MEDS: SUCRALFATE 1 GM TAB PO SCH ×4 (07:30→22:01)
[2016-10-21] MEDS: HumaLOG INSULIN (NovoLOG) PER UNIT SC SCH ×4 (07:30→21:00)
[2016-10-21 08:00] VITALS: BP 161/67
[2016-10-21] MEDS: SILVER SULFADIAZINE 1% CR 50 GM JAR TOP SCH ×2 (09:00→21:00)
[2016-10-21] MEDS: METOPROLOL SUCC (TopROL XL) 50MG **XL** TAB PO SCH (09:00)
[2016-10-21] MEDS: LACTOBACILLUS ACIDOPHILUS CAP (BACID) PO SCH ×3 (09:38→18:10)
[2016-10-21] MEDS: SPIRONOLACTONE 25 MG TAB PO SCH (09:38)
[2016-10-21] MEDS: CLOPIDOGREL 75 MG TAB PO SCH (09:39)
[2016-10-21] MEDS: OMEPRAZOLE 20 MG CAP PO SCH (09:39)
[2016-10-21] MEDS: ASPIRIN 325 MG TAB PO SCH (09:39)
[2016-10-21] MEDS: FUROSEMIDE 40 MG/4 ML VIAL (J1940) IV SCH ×2 (09:40→16:07)
--- NOTE | 2016-10-21 09:53 | IPNPDOC ---
Date Seen The patient was seen on 10/21/16. Progress Note SUBJECTIVE: Patient tells me that his shortness of breath is essentially resolved, however he still has some dry heaves and vomitted his breakfast this AM. OBJECTIVE PHYSICAL EXAMINATION: VITAL SIGNS: Please see below. GENERAL: Obese elderly man laying completely flat in bed sleeping nad HEENT: Pupils equally round reactive to light he has moist mucous membranes there is no elevation central venous pressure CARDIOVASCULAR: S1 S2 regular. RESPIRATORY: Diminished breath sounds at the bases good air movement ABDOMINAL: Obese bowel sounds present abdomen soft, epigastric tenderness to palpation EXTREMITIES: Bilateral lower heel dressings are clean dry and intact with gauze bandages he has 1+ edema bilaterally, some improvement today LABORATORY DATA: Please see below. MICROBIOLOGY: Please see below. IMAGING: Gallbladder U/S:1. There was sludge and multiple mobile calculi in the gallbladder with thickened wall up to 3 mm suggesting cholelithiasis and chronic cholecystitis. I see no intrahepatic biliary dilatation and the common duct 3.3 mm and normal. There was a positive sonographic Berger's sign, however. 2. Liver homogeneous without focal lesion, biliary dilatation or adjacent ascites. 3. Pancreas obscured by gas shadowing. The right kidney unremarkable." CXR:"Cardiomegaly and vascular congestion. No change in mild right basilar atelectasis/infiltrate since 09/19/2016 exam." Echocardiogram: Aug 2016:" 1. Mild to moderate global left ventricular systolic dysfunction with regional wall motion abnormalities consistent with probably underlying coronary artery disease. 2. Aortic valve sclerosis with mild aortic stenosis. 3. Mildly enlarged left atrium with mild mitral regurgitation and mitral annulus calcification. 4. Mild tricuspid regurgitation with mild pulmonary hypertension. 5. There are findings consistent with elevated central venous pressure, the inferior vena cava/IVC was mildly enlarged. 6. Pacemaker/AICD wire artifact noted.". DVT prophylaxis ordered?: Heparin ASSESSMENT AND PLAN: This is a 70-year-old man with decompensated congestive heart failure with dry heaves with epigastric discomfort. PROBLEMS: 1. Decompensated congestive heart failure: The patient has reportedly been noncompliant with 2 g sodium diet. He's been started on aggressive IV Lasix I did give metolazone 2.5mg 1x dose yesterday with + response. His respiratory status is improved, he still has significant water weight on him still but is approaching euvolemia. He has systolic dysfunction he has an AICD in place normally follows with Dr. Mcpherson. Patient is on a beta juan daniel Aldactone no LESLY inhibitor at this time secondary to his progressive renal disease. 2. Epigastric discomfort dry heaves: His dry heaves are only associated with coughing bouts which I initially attributed to decompensated heart failure however this has not resolved despite improving his volume status. Dr. Chakraborty' s help is greatly appreciated. He does not feel that this is related to gallstones or acute cholecystitis which I agree with, he's been started on Carafate in addition to his PPI, plan is for UGI series with small bowel follow through, he may need EGD if symptoms persists. 3. Lower extremity ulcers: Dr. Chakraborty's help is greatly appreciated dressing changes as per his recommendations. 4. Chronic kidney disease appears to be relatively stable the last 6 months continue monitor closely while we are diuresing him, ACIi on hold 5. Diarrhea: The patient does admit he has had this quite chronically and is stable. He has several colonoscopies in the past. He is on Bacid 6. Coronary artery disease: History of CT history of CABG 2 years ago the patient on aspirin Plavix He is also on a beta juan daniel he is not on a statin will defer to Dr. Mcpherson 7. Type 2 diabetes: The patient on sliding-scale insulin continue to monitor fingersticks adequately controlled at this time 8 hypertension: Continue current medications lisinopril is currently on hold blood pressure is adequate 9. Gastric esophageal reflux disease: As outlined above the patient is on a PPI 10. Anemia appears to be iron deficiency I will start the patient on iron sulfate he would likely benefit from outpatient repeat colonoscopy DISPOSITION: We'll continue to monitor the patient closely. VS, I&O, 24H, Fishbone Vital Signs/I&O Vital Signs Date Time Temp Pulse Resp B/P Pulse Ox O2 Delivery O2 Flow Rate FiO2 10/21/16 09:00 75 161/67 10/21/16 08:00 97.3 18 93 10/21/16 04:45 Room Air 10/18/16 12:41 2 I&O- Last 24 Hours up to 6 AM 10/21/16 06:00 Intake Total 480 ml Output Total 2950 ml Balance -2470 ml Laboratory Data 24H LABS Laboratory Tests 2 10/20/16 12:09: Bedside Glucose (Misc Panel) 245H 10/20/16 17:28: Bedside Glucose (Misc Panel) 173H 10/20/16 20:04: Bedside Glucose (Misc Panel) 219H 10/21/16 04:50: Aspartate Amino Transf (AST/SGOT) 7L, Alanine Aminotransferase (ALT/SGPT) 11L, Alkaline Phosphatase 138H, Total Bilirubin 0.2, Direct Bilirubin 0.1, Albumin 2.5L, Albumin/Globulin Ratio 0.61L, Amylase Level 20L, Anion Gap 8, Calcium Level 8.1L, Glomerular Filtration Rate 31.0L, Lipase 69L, Magnesium Level 2.2, Total Protein 6.6 CBC/BMP Laboratory Tests 10/21/16 04:50 Red Blood Count 3.39 L, Mean Corpuscular Volume 88.0, Mean Corpuscular Hemoglobin 27.8, Mean Corpuscular Hemoglobin Concent 31.6 L, Red Cell Distribution Width 13.5 Microbiology Microbiology 10/18/16 Urine Culture - Final, Complete KYLE PETERS MD Oct 21, 2016 09:53
[2016-10-21 14:15] VITALS: BP 130/60
[2016-10-21 18:46] LABS: CALCIUM LEVEL 8.9 MG/DL (8.8-10.2); CREATININE FOR GFR 2.43 MG/DL (0.70-1.30); GLOMERULAR FILTRATION RATE 28.2 (>42); POTASSIUM SERUM 4.3 MEQ/L (3.5-5.1)
[2016-10-21 22:00] VITALS: BP 163/71
[2016-10-21] MEDS: PERCOCET 5MG/325MG TAB PO PRN (22:08)
[2016-10-22] MEDS: FUROSEMIDE 40 MG/4 ML VIAL (J1940) IV SCH ×2 (00:33→09:38)
[2016-10-22] MEDS: HEPARIN SOD (PORCINE) 5000 UNITS/ML VIAL SC SCH ×3 (05:29→21:46)
[2016-10-22 06:00] VITALS: BP 150/86
[2016-10-22 06:08] LABS: MEAN CORPUSCULAR HEMOGLOBIN 27.5 pg (27.0-33.0); MEAN CORPUSCULAR HGB CONC 32.6 g/dl (32.0-36.5); MEAN CORPUSCULAR VOLUME 84.6 fl (80.0-96.0); RED CELL DISTRIBUTION WIDTH 13.4 % (11.5-14.5); WHITE BLOOD COUNT 8.5 K/mm3 (4.0-10.0)
[2016-10-22 06:33] LABS: ALBUMIN 2.4 GM/DL (3.2-5.2); ALBUMIN/GLOBULIN RATIO 0.57 (1.00-1.93); BILIRUBIN,DIRECT 0.1 MG/DL (0.0-0.2); BILIRUBIN,TOTAL 0.3 MG/DL (0.2-1.0); CALCIUM LEVEL 8.5 MG/DL (8.8-10.2); CREATININE FOR GFR 2.32 MG/DL (0.70-1.30); GLOMERULAR FILTRATION RATE 29.8 (>42); MAGNESIUM LEVEL 2.1 MG/DL (1.8-2.4); POTASSIUM SERUM 3.6 MEQ/L (3.5-5.1); TOTAL PROTEIN 6.6 GM/DL (6.4-8.2)
[2016-10-22] MEDS: LACTOBACILLUS ACIDOPHILUS CAP (BACID) PO SCH ×3 (09:30→18:35)
[2016-10-22] MEDS: HumaLOG INSULIN (NovoLOG) PER UNIT SC SCH ×4 (09:30→21:47)
[2016-10-22] MEDS: SUCRALFATE 1 GM TAB PO SCH ×4 (09:30→21:46)
[2016-10-22] MEDS: CLOPIDOGREL 75 MG TAB PO SCH (09:36)
[2016-10-22] MEDS: OMEPRAZOLE 20 MG CAP PO SCH (09:36)
[2016-10-22] MEDS: SPIRONOLACTONE 25 MG TAB PO SCH (09:36)
[2016-10-22] MEDS: METOPROLOL SUCC (TopROL XL) 50MG **XL** TAB PO SCH (09:37)
[2016-10-22] MEDS: ASPIRIN 325 MG TAB PO SCH (09:38)
[2016-10-22] MEDS: ONDANSETRON 4MG/2ML VIAL (J2405) IV PRN (09:49)
[2016-10-22] MEDS: SILVER SULFADIAZINE 1% CR 50 GM JAR TOP SCH ×2 (11:00→21:47)
--- NOTE | 2016-10-22 11:49 | IPN ---
DATE: 10/22/2016 70-year-old gentleman seen at bedside. No overnight complications or problems. He does appear to be diuresing well. Denies chest pain, shortness of breath or productive sputum. No abdominal pain. OBJECTIVE: Temperature is 98.5, pulse 71, respiratory rate 18, blood pressure (BP) 150/86, SPO2 is 93% on room air. General: The patient appears to be in no acute distress. Is alert and oriented. HEENT: Unremarkable. Unable to determine jugular venous distention (JVD) due to body habitus. Lungs: Diminished bibasilar breath sounds, otherwise clear. Heart: Regular rate and rhythm. Abdomen is obese, soft. Extremities: No edema. No calf tenderness. LABORATORY DATA: White count is 8.5, hemoglobin 9.8, platelets 302,000. Sodium 138, potassium 3.6, chloride 96, bicarb 32, anion gap 10, BUN 31, creatinine 2.32, glucose 147, AST is 7, ALT 11, alkaline phosphatase 132, albumin is 2.4. ASSESSMENT/PLAN: 1. Gallbladder thickening with multiple mobile calculi with thickening of the gallbladder wall to 3 mm suggesting cholelithiasis. Chronic cholecystitis, but no intrahepatic biliary dilation. Common duct is 3.3 mm. Otherwise normal. Did have a positive sonographic Berger sign, this could be worked up as an outpatient. 2. Shortness of breath, possibly related to decompensated congestive heart failure. He had been noncompliant with fluid restriction and 2 gram sodium diet. Has done well with IV Lasix and metolazone. Will continue with the fluid restriction and diet as outlined. Continue beta juan daniel, Aldactone and hold LESLY inhibitor. 3. Epigastric discomfort and dry heaves, this appears to be improved. He does have Zofran. Dr. Chakraborty consulted and did not feel that this was acutely related to the cholecystitis. Continue on the Carafate, proton pump inhibitor (PPI). Scheduled for upper GI small-bowel follow-through. Will see how those results look. He may need further esophagogastroduodenoscopy (EGD) if his symptoms persist. 4. Lower extremity ulcers. Dr. Chakraborty's help is appreciated. Appreciate his recommendations. 5. Chronic kidney disease (CKD), appears to be relatively stable the last 6 months. Will continue to diurese him. LESLY inhibitors are on hold. 6. Diarrhea, appears to be chronic in nature with several colonoscopies in the past. Continue on Bacid 7. Coronary artery disease, history of myocardial infarction (PR) and coronary artery bypass graft (CABG) 2 years ago. Continue on aspirin, Plavix and beta juan daniel. Not on a statin. Will defer to Dr. Mcpherson. 8. Type 2 diabetes. Continue with fingersticks before meals and at bedtime. Sliding scale coverage. 9. Hypertension. Lisinopril currently on hold, again, due to his renal status. Hold parameters placed on his blood pressure medicines otherwise. 10. Gastroesophageal reflux disease (GERD). As outlined, continue on PPI and Carafate. 11. Anemia, appears to be iron deficiency. The patient was started on iron sulfate and will need outpatient followup with repeat colonoscopies. DISPOSITION: Will continue to monitor. Will see how he does with switching to by mouth Lasix. He may be tentatively 48-72 hours away from discharge. Correction to the patient's dosing for diuretics. He does take spironolactone 50 mg daily at home. Will go ahead and discontinue the 25 mg dose, as well as the intravenous (IV) Lasix today, starting him on the 50 mg, giving additional dose today at noon, and resume the daily dose tomorrow morning. If he is tolerating well, as indicated in the previous dictation, we will see if we can get him home within the next 1-2 days. Edited 10/22/2016 [facility] MTDD
[2016-10-22] MEDS: POTASSIUM CHLORIDE 10 MEQ SR TABLET PO SCH (12:28)
[2016-10-22] MEDS ORDERED: SPIRONOLACTONE 50 MG TAB PO ONE (12:30)
[2016-10-22 14:00] VITALS: BP 151/67
[2016-10-22] MEDS: PERCOCET 5MG/325MG TAB PO PRN (21:48)
[2016-10-22 22:00] VITALS: BP 142/80
[2016-10-23] MEDS: HEPARIN SOD (PORCINE) 5000 UNITS/ML VIAL SC SCH ×3 (05:50→21:02)
[2016-10-23 06:00] VITALS: BP 158/75
[2016-10-23 06:56] LABS: MEAN CORPUSCULAR HEMOGLOBIN 27.4 pg (27.0-33.0); MEAN CORPUSCULAR HGB CONC 31.9 g/dl (32.0-36.5); MEAN CORPUSCULAR VOLUME 85.9 fl (80.0-96.0); RED CELL DISTRIBUTION WIDTH 13.4 % (11.5-14.5); WHITE BLOOD COUNT 8.8 K/mm3 (4.0-10.0)
[2016-10-23 07:21] LABS: ALBUMIN 2.4 GM/DL (3.2-5.2); ALBUMIN/GLOBULIN RATIO 0.51 (1.00-1.93); ALKALINE PHOSPHATASE 121 U/L (45-117); ALT/SGPT 10 U/L (12-78); AMYLASE 18 U/L (25-115); ANION GAP 6 MEQ/L (8-16); AST/SGOT 8 U/L (15-37); BILIRUBIN,DIRECT < 0.1 MG/DL (0.0-0.2); BILIRUBIN,TOTAL 0.3 MG/DL (0.2-1.0); BLOOD UREA NITROGEN 35 MG/DL (7-18); CALCIUM LEVEL 8.9 MG/DL (8.8-10.2); CARBON DIOXIDE LEVEL 36 MEQ/L (21-32); CHLORIDE LEVEL 95 MEQ/L (98-107); CREATININE FOR GFR 2.58 MG/DL (0.70-1.30); GLOMERULAR FILTRATION RATE 26.3 (>42); GLUCOSE, FASTING 165 MG/DL (83-110); MAGNESIUM LEVEL 2.2 MG/DL (1.8-2.4); POTASSIUM SERUM 3.8 MEQ/L (3.5-5.1); SODIUM LEVEL 137 MEQ/L (136-145); TOTAL PROTEIN 7.1 GM/DL (6.4-8.2)
[2016-10-23] MEDS: HumaLOG INSULIN (NovoLOG) PER UNIT SC SCH ×4 (07:30→21:03)
[2016-10-23] MEDS: CLOPIDOGREL 75 MG TAB PO SCH (08:11)
[2016-10-23] MEDS: SUCRALFATE 1 GM TAB PO SCH ×4 (08:12→21:02)
[2016-10-23] MEDS: OMEPRAZOLE 20 MG CAP PO SCH (08:12)
[2016-10-23 08:13] VITALS: BP 158/78
[2016-10-23] MEDS: METOPROLOL SUCC (TopROL XL) 50MG **XL** TAB PO SCH (08:13)
[2016-10-23] MEDS: SPIRONOLACTONE 50 MG TAB PO SCH (08:14)
[2016-10-23] MEDS: LACTOBACILLUS ACIDOPHILUS CAP (BACID) PO SCH ×3 (08:14→17:37)
[2016-10-23] MEDS: ASPIRIN 325 MG TAB PO SCH (08:14)
[2016-10-23] MEDS: POTASSIUM CHLORIDE 10 MEQ SR TABLET PO SCH (08:15)
[2016-10-23] MEDS: TORSEMIDE 20 MG TAB PO SCH ×2 (08:15→17:36)
[2016-10-23] MEDS: SILVER SULFADIAZINE 1% CR 50 GM JAR TOP SCH ×2 (08:18→21:03)
[2016-10-23] MEDS ORDERED: E-Z-GAS II EFFERVESCENT PACKET (SODIUM BICARB./CITRIC ACID/SIMETHICONE) As Ordered ONE (09:15)
[2016-10-23] MEDS ORDERED: E-Z-HD 98% w/w 340GM SUSP BTL As Ordered ONE (09:15)
[2016-10-23] MEDS ORDERED: E-Z PAQUE 60% w/v SUSP 355ML BOTTLE As Ordered ONE (09:15)
[2016-10-23] MEDS: METOCLOPRAMIDE 10 MG TAB PO SCH ×3 (11:42→21:02)
--- NOTE | 2016-10-23 13:27 | IPN ---
DATE: 10/23/2016 70-year-old male seen at bedside. He is resting comfortably. Denies any specific complaints. No headache, lightheadedness, dizziness. No chest pain. No nausea or vomiting. OBJECTIVE: Temperature is 98.4, pulse 68, respiratory rate 16, blood pressure 158/75, SpO2 is 99% on room air. GENERAL: The patient appears to be in no acute distress. He is alert, oriented. HEENT: Unremarkable. LUNGS: Clear. HEART: Regular rate and rhythm. ABDOMEN: Soft. Normoactive bowel sounds. No rebound. No tenderness. EXTREMITIES: No edema. No calf tenderness. LABORATORY DATA: White count 8.8, hemoglobin 10.3, platelets are 299. Sodium 137, potassium 4.8, chloride 95, bicarbonate 36, anion gap is 6, BUN is 35, creatinine 2.58, glucose is 165. AST 80, ALT 10, alkaline phosphatase 121, amylase 18. Upper GI with small bowel follow through results are pending at this time. ASSESSMENT AND PLAN: 1. Gallbladder thickening with multiple mobile calculi. Gallbladder wall is thickened to 3 mm. 2. Chronic cholecystitis with no intrahepatic or biliary dilation appreciated. This likely will need outpatient workup. 3. Shortness of breath, possibly related to decompensated congestive heart failure (CHF). He does appear to be much more compensated. Continue with 2 gram sodium restriction, fluid restriction. We did switch him off of IV Lasix and metolazone to oral diuretics. LESLY inhibitors are on hold currently. 4. Epigastric discomfort with dry heaves. Appears to be improved. Upper GI with small bowel follow through has been ordered, those results are pending at this time. He is doing well on Carafate and proton pump inhibitor. 5. Chronic kidney disease. Appears to be stable for the last 6 months. Continue to hold LESLY inhibitors. 6. Lower extremity ulcers, appreciate Dr. Chakraborty's recommendations. 7. Diarrhea, appears chronic in nature. He has had several colonoscopies in the past. Continue with Bacid. 8. Coronary artery disease with prior history of myocardial infarction. Coronary artery bypass graft (CABG) two years ago. Continue on aspirin, Plavix, beta juan daniel. Not currently on a statin. We will defer to Dr. Mcpherson. 9. Type 2 diabetes. Continue fingersticks before food and nightly with sliding scale coverage as needed. 10. Hypertension. Lisinopril is on hold due to his renal status. We will continue with other antihypertensives with hold parameters. 11. Gastroesophageal reflux disease (GERD). As outlined. Continue on proton pump inhibitor and Carafate. 12. Anemia, appears to likely be related to iron deficiency. His hemoglobin and hematocrit have trended upward and likely will need outpatient followup with colonoscopy. DISPOSITION: Continue to monitor. He does appear to be improving. He is tolerating his oral antidiuretics well. We will anticipate home discharge tomorrow, likely will need assistance with public health. Tomorrow morning, he will likely need to be discharged home with services. He has been unable to assess stairs at present. We will see how he does tomorrow.
--- NOTE | 2016-10-23 16:49 | REP ---
UPPER GI AIR CONTRAST AND SMALL BOWEL FOLLOW-THROUGH: The procedure was performed under the direct supervision of Dr. Petty. The images were reviewed with Dr. Petty. The configuration management architect film shows no organomegaly or pathological masses. The intestinal gas pattern is nonspecific. The patient is status-post median sternotomy. There are surgical clips noted in the epigastric region. There is a pacer lead identified. There is a right iliac artery stent identified. There are surgical clips noted over the hips bilaterally, likely representing prior vascular surgery. Liquid barium and gas producing granules were given in the erect position as well as liquid barium in the prone oblique position in order to perform a double contrast upper GI examination. Additionally liquid barium was given at the end of the examination in order to perform a small bowel follow-through. The oral and pharyngeal stages of deglutition are unremarkable. Esophageal transport is prompt and efficient and there is no esophagitis, stricture, mucosal ring, or hiatal hernia. There is gastroesophageal reflux demonstrated to above the level of the rebecca. The patient was unable to retain the air. Therefore examination of the stomach is somewhat limited. The stomach is grossly normal. The rugal folds are smooth and regular. There is no gastritis, neoplasm or ulcer disease. In the duodenal bulb and proximal second portion of the duodenum there are thickened folds. There is no kasandra ulcer identified. This likely represents duodenitis. The visualized portion of the proximal small bowel appears normal in course and caliber. The barium column was followed through the small bowel to the level of the terminal ileum. Small bowel transit time was approximately 4 hours and 20 minutes. Ballottement was performed by Dr. Petty. During fluoroscopy gentle palpation shows all loops are freely movable and pliable. There are no fixed or angulated loops. The small bowel mucosal pattern is normal in course and caliber. There is no transition to suggest a partial small bowel obstruction. Spot filming of terminal ileum shows it to be unremarkable. IMPRESSION: 1. There is gastroesophageal reflux demonstrated to the above the level of the rebecca. 2. There are thickened folds in the duodenal bulb and proximal second portion of the duodenum. There was no kasandra ulcer identified. This likely represents duodenitis. 3 minutes and 54 seconds of fluoroscopy time was utilized for this procedure. Reviewed by GEOFFREY Iqbal 10/23/2016 05:09 PEdited and Signed by Gilberto Petty MD 10/24/2016 07:43 A
[2016-10-23] MEDS: PERCOCET 5MG/325MG TAB PO PRN (21:01)
[2016-10-23 22:00] VITALS: BP 145/63
[2016-10-24] MEDS: HEPARIN SOD (PORCINE) 5000 UNITS/ML VIAL SC SCH ×3 (05:35→21:07)
[2016-10-24 06:00] VITALS: BP 141/67
[2016-10-24 06:26] LABS: MEAN CORPUSCULAR HEMOGLOBIN 27.7 pg (27.0-33.0); MEAN CORPUSCULAR HGB CONC 32.9 g/dl (32.0-36.5); MEAN CORPUSCULAR VOLUME 84.3 fl (80.0-96.0); RED CELL DISTRIBUTION WIDTH 13.4 % (11.5-14.5); WHITE BLOOD COUNT 9.4 K/mm3 (4.0-10.0)
[2016-10-24 06:42] LABS: ALBUMIN 2.5 GM/DL (3.2-5.2); CREATININE FOR GFR 2.58 MG/DL (0.70-1.30); GLOMERULAR FILTRATION RATE 26.3 (>42); PHOSPHORUS LEVEL 3.3 MG/DL (2.5-4.9); POTASSIUM SERUM 3.7 MEQ/L (3.5-5.1)
[2016-10-24] MEDS: POTASSIUM CHLORIDE 10 MEQ SR TABLET PO SCH (07:43)
[2016-10-24] MEDS: METOCLOPRAMIDE 10 MG TAB PO SCH ×4 (07:43→21:06)
[2016-10-24] MEDS: LACTOBACILLUS ACIDOPHILUS CAP (BACID) PO SCH ×3 (07:43→17:05)
[2016-10-24] MEDS: ASPIRIN 325 MG TAB PO SCH (07:43)
[2016-10-24] MEDS: SPIRONOLACTONE 50 MG TAB PO SCH (07:43)
[2016-10-24] MEDS: TORSEMIDE 20 MG TAB PO SCH ×2 (07:44→17:05)
[2016-10-24] MEDS: OMEPRAZOLE 20 MG CAP PO SCH (07:44)
[2016-10-24] MEDS: CLOPIDOGREL 75 MG TAB PO SCH (07:44)
[2016-10-24] MEDS: SUCRALFATE 1 GM TAB PO SCH ×4 (07:44→21:06)
[2016-10-24] MEDS: SILVER SULFADIAZINE 1% CR 50 GM JAR TOP SCH ×2 (07:45→21:07)
[2016-10-24] MEDS: HumaLOG INSULIN (NovoLOG) PER UNIT SC SCH ×4 (07:45→20:21)
[2016-10-24] MEDS ORDERED: BISOPROLOL FUMARATE 5 MG TAB PO SCH (09:00)
[2016-10-24] MEDS ORDERED: REGL10TA6 PO (09:30)
--- NOTE | 2016-10-24 11:21 | IPN ---
DATE: 10/24/2016 70-year-old gentleman seen at bedside. No overnight issues reported. He is resting comfortably. He is planning on ordering breakfast this morning. Denies chest pain, shortness of breath. No nausea, vomiting, no abdominal pain currently. OBJECTIVE: Temperature 98.7, pulse 76, respiratory rate is 20. BP 141/67, SPO2 is 93% on room air. General: The patient appears to be in no acute distress. He is alert, pleasant. HEENT: Unremarkable. Lungs: Clear. Heart: Regular rate and rhythm. Abdomen: Soft. Positive bowel sounds. He did have some very mild vague tenderness of the upper abdomen but this does not demonstrate any rebound tenderness or signs of peritonitis. Extremities: No edema. No calf tenderness. LABORATORY DATA: White count 9.4, hemoglobin 11.4, platelets 310,000. Sodium 136, potassium 3.7, chloride 94, bicarb 34, anion gap 8, BUN 36, creatinine 2.58, glucose 112, albumin 2.5. Upper GI with small-bowel follow-through: Gastroesophageal reflux (GERD) demonstrated at the level of the rebecca. He did have some thick folds of the duodenal bulb and proximal second portion of the duodenum. No kasandra ulceration demonstrated likely representing duodenitis. Otherwise good small-bowel follow-through. ASSESSMENT/PLAN: 1. Abdominal discomfort. He does have some gastroesophageal reflux disease as well as duodenitis noted on upper GI. No active signs of bleeding with stable hemoglobin and hematocrit which has gradually improved each day. He has required no blood transfusions. Will continue with Carafate. On ultrasound of the abdomen, he did demonstrate some chronic cholecystitis. No intrahepatic or biliary dilation appreciated, therefore no immediate surgical need. He can followup outpatient for this. 2. Shortness of breath, possibly related to decompensated congestive heart failure (CHF) which appears to be compensated well. Will continue with 2 grams sodium restriction, fluid restriction. He is currently back on his oral diuretics, LESLY inhibitors are on hold due to his chronic kidney disease. 3. Chronic kidney disease (CKD) appears to be at baseline for 6 months. Hold LESLY inhibitor and he can followup outpatient. 4. Lower extremity ulcers. Appreciate Dr. Chakraborty recommendations. These appear to be stable. No signs of infection. 5. Diarrhea chronic in nature, stable. Continue on Bacid. He has had several colonoscopies and should continue followup outpatient. 6. Coronary artery disease, prior history of myocardial infarction, coronary artery bypass graft (CABG) two years ago. Continue on aspirin, Plavix, beta juan daniel. Not currently on statin. Defer to Dr. Mcpherson for followup. Again, he does not demonstrate any signs of GI bleed. No symptomatic anemia. 7. Type 2 diabetes. Continue with fingersticks, sliding scale coverage. 8. Hypertension. Lisinopril was on hold due to his renal status. Continue his other antihypertensives with hold parameters. 9. Gastroesophageal reflux disease (GERD) as outlined. Continue PPI and Carafate. 10. Anemia likely related iron deficiency, hemoglobin/hematocrit have continued to trend upward. He can followup outpatient when he is due for his next colonoscopy. DISPOSITION: He does appear to be doing well. Did anticipate trying to send him home today. He is marginal with physical therapy. We will see how he does with another treatment today and see if he is safe for discharge tomorrow. He may need discharge home with services due to his medical noncompliance. However, we have attempted to streamline his medications and he will need follow-up to make sure that he is doing well and staying with the program at home.
[2016-10-24 14:00] VITALS: BP 138/77
[2016-10-24] MEDS: PERCOCET 5MG/325MG TAB PO PRN (21:07)
[2016-10-24 22:00] VITALS: BP 152/72
[2016-10-25] MEDS: HEPARIN SOD (PORCINE) 5000 UNITS/ML VIAL SC SCH (05:14)
[2016-10-25 06:00] VITALS: BP 147/65
[2016-10-25 06:28] LABS: MEAN CORPUSCULAR HEMOGLOBIN 27.4 pg (27.0-33.0); MEAN CORPUSCULAR VOLUME 85.5 fl (80.0-96.0); RED CELL DISTRIBUTION WIDTH 13.4 % (11.5-14.5); WHITE BLOOD COUNT 8.8 K/mm3 (4.0-10.0)
[2016-10-25 06:30] LABS: ALBUMIN 2.5 GM/DL (3.2-5.2); CALCIUM LEVEL 8.9 MG/DL (8.8-10.2); CREATININE FOR GFR 2.72 MG/DL (0.70-1.30); GLOMERULAR FILTRATION RATE 24.8 (>42); PHOSPHORUS LEVEL 3.3 MG/DL (2.5-4.9); POTASSIUM SERUM 3.6 MEQ/L (3.5-5.1)
[2016-10-25] MEDS ORDERED: SUCR1TA PO (07:41)
[2016-10-25] MEDS: OMEPRAZOLE 20 MG CAP PO SCH (08:10)
[2016-10-25] MEDS: CLOPIDOGREL 75 MG TAB PO SCH (08:10)
[2016-10-25] MEDS: SUCRALFATE 1 GM TAB PO SCH (08:10)
[2016-10-25] MEDS: ASPIRIN 325 MG TAB PO SCH (08:10)
[2016-10-25] MEDS: HumaLOG INSULIN (NovoLOG) PER UNIT SC SCH (08:10)
[2016-10-25] MEDS: LACTOBACILLUS ACIDOPHILUS CAP (BACID) PO SCH (08:10)
[2016-10-25] MEDS: TORSEMIDE 20 MG TAB PO SCH (08:10)
[2016-10-25] MEDS: SPIRONOLACTONE 50 MG TAB PO SCH (08:11)
[2016-10-25] MEDS: SILVER SULFADIAZINE 1% CR 50 GM JAR TOP SCH (08:11)
[2016-10-25] MEDS: METOCLOPRAMIDE 10 MG TAB PO SCH (08:11)
[2016-10-25] MEDS: POTASSIUM CHLORIDE 10 MEQ SR TABLET PO SCH (08:11)
--- NOTE | 2016-10-25 12:35 | DSES ---
DATE OF ADMISSION: 10/18/2016 DATE OF DISCHARGE: 10/25/2016 PRIMARY CARE PROVIDER: Iliana Barragan CORRUGATOR: Dr. Mcpherson SUPERINTENDENT WAREHOUSE: Dr. Chakraborty PROCEDURES PERFORMED: None. COMPLICATIONS: None. ADMISSION AND DISCHARGE DIAGNOSES 1. Abdominal discomfort with symptoms of gastroesophageal reflux disease (GERD) and duodenitis, now resolved. 2. Chronic cholecystitis. 3. Shortness of breath, possibly related to mild decompensated congestive heart failure (CHF), which is now currently compensated. 4. Chronic kidney disease. 5. Lower extremity ulcers with recommendations per Dr. Chakraborty. 6. Chronic diarrhea with negative workup with colonoscopies. 7. Coronary artery disease, status post coronary artery bypass graft (CABG) procedure two years ago. 8. Type 2 diabetes. 9. Hypertension. 10. GERD 11. Iron deficiency anemia. BRIEF HOSPITAL COURSE: Mr. Drake is a pleasant 70-year-old gentleman seen and admitted for vague abdominal pain, epigastric pain, nausea with no vomiting, difficulty maintaining good oral intake. This has been superimposed o some long-standing chronic diarrhea with negative workup with negative colonoscopies. He did complain of some shortness of breath and chest tightness, which did resolve. He has been able to diurese well. We will also additionally try to avoid nephrotoxins. For further information regarding intake, physical, laboratories, diagnostics please refer to the history and physical and refer to Dr. Chakraborty's consult. He did have an upper GI performed on 10/23/2016. GERD was demonstrated above the level of the rebecca, thickened folds of the duodenal bulb suggesting duodenitis. Otherwise unremarkable with no filling defects. His gallbladder ultrasound done on 10/18/2016 did suggest some sludge with multiple metabolic calculi in the gallbladder, thickened gallbladder wall of 3 mm with no signs of acute cholecystitis. No biliary dilation. Liver did appear to be homogenous. Followup as an outpatient for his gallbladder with Dr. Chakraborty. PHYSICAL EXAMINATION: Today, temperature is 98.4, pulse 70, respiratory rate 20, blood pressure 147/65, SpO2 is 97% on room air. GENERAL: The patient appears to be in no acute distress. Is alert and oriented. HEENT: Unremarkable. LUNGS: Clear. HEART: Regular rhythm. ABDOMEN: Soft. EXTREMITIES: No edema. No calf tenderness. LABORATORY DATA: White count 8.8, hemoglobin 10.8, platelets 311. Sodium is 136, potassium 2.6, chloride 92, bicarbonate 35, anion gap 9, BUN is 43, creatinine 2.72. Discharge condition is good. DISPOSITION: Discharge to home. DISCHARGE MEDICATIONS: - Reglan 10 mg before food - Carafate 1 gram before food and nightly - albuterol nebulizer as needed every 4 hours as needed - aspirin 325 mg daily - calcium with vitamin D 1 tablet daily - Carvedilol 12.5 mg twice a day - Plavix 75 mg daily - Lantus 100 units daily and 85 units at night - losartan 50 mg daily - metoprolol tartrate 50 mg daily - Nitrostat 0.4 mg sublingually every 5 minutes as needed for chest pain - omeprazole 40 mg daily - Percocet one to two tablets every 8 hours as needed for pain - potassium chloride 10 mEq daily - Lyrica 150 mg twice a day - spironolactone 50 mg daily - furosemide 60 mg twice a day DISCHARGE INSTRUCTIONS: Discharge to home. Activity as tolerated. Consistent carbohydrate diet. Followup with his primary care provider in a week and followup with Dr. Chakraborty as needed for followup to his gallbladder. He should seek medical attention if symptoms should worsen or progress. He voices understanding. Discharge took 35 minutes.
== END 2016-10-25 11:12 | disposition home health service (06) | DRG 291 ==
LOC: M ED 13:42 → M ED INP 15:22 → M PCU 10-19 14:58 → M MSPAV 10-21 14:27
PROVIDERS: ADMIT General Practice; ATTEND Hospitalist
DX: I13.0 Hypertensive heart and chronic kidney disease with heart failure and stage 1 through stage 4 chronic kidney disease, or unspecified chronic kidney disease (principal); I50.23 Acute on chronic systolic (congestive) heart failure; L97.429 Non-pressure chronic ulcer of left heel and midfoot with unspecified severity; L97.419 Non-pressure chronic ulcer of right heel and midfoot with unspecified severity; K21.9 Gastro-esophageal reflux disease without esophagitis; I25.10 Atherosclerotic heart disease of native coronary artery without angina pectoris; E11.9 Type 2 diabetes mellitus without complications; D50.9 Iron deficiency anemia, unspecified; K29.80 Duodenitis without bleeding; K81.1 Chronic cholecystitis; R19.7 Diarrhea, unspecified; N18.3 Chronic kidney disease, stage 3 (moderate); E78.5 Hyperlipidemia, unspecified; I25.2 Old myocardial infarction; Z95.810 Presence of automatic (implantable) cardiac defibrillator; Z87.891 Personal history of nicotine dependence; Z91.19 Patient's noncompliance with other medical treatment and regimen; Z91.018 Allergy to other foods; Z95.5 Presence of coronary angioplasty implant and graft; Z79.4 Long term (current) use of insulin; Z79.899 Other long term (current) drug therapy

== ENCOUNTER → 2016-10-31 | Outpatient (REF) | payer MEDICARE, MEDICAID ==
[~2016-10-31] MED LIST changes: +CARV12.5 PO; +LISI10TA4 PO; +LOSA50TA20 PO; +OXYC1TAB23 PO; +REGL10TA6 PO; +SPIR50TA2 PO; +SUCR1TA PO; +TORS20TA2 PO
== END ==
LOC: M LAB REF 16:26
PROVIDERS: ATTEND Podiatrist Foot & Ankle Surgery
DX: L89.612 Pressure ulcer of right heel, stage 2 (principal); E11.621 Type 2 diabetes mellitus with foot ulcer

== ENCOUNTER 2016-11-20 15:52 | Inpatient (IN) | payer MEDICAID, MEDICARE ==
[~2016-11-20] VITALS: Ht 167.6 cm; Wt 93.0 kg
[2016-11-20 17:43] LABS: BASO % 0.4 % (0.0-1.0); EOS # 0.1 K/mm3 (0.0-0.50); EOS % 1.2 % (0.0-3.0); LARGE UNSTAINED CELL # 0.2 K/mm3 (0.0-0.4); LARGE UNSTAINED CELL % 2.1 % (0.0-4.0); LYMPH # 0.9 K/mm3 (1.5-4.5); LYMPH % 11.8 % (24.0-44.0); MEAN CORPUSCULAR HEMOGLOBIN 27.4 pg (27.0-33.0); MEAN CORPUSCULAR VOLUME 88.3 fl (80.0-96.0); MONO # 0.4 K/mm3 (0.0-0.8); MONO % 5.5 % (0.0-5.0); NEUTROPHILS # 6.2 K/mm3 (1.8-7.7); NEUTROPHILS % 78.9 % (36.0-66.0); PLATELET COUNT, AUTOMATED 254 k/mm3 (150-450); RED CELL DISTRIBUTION WIDTH 14.1 % (11.5-14.5); WHITE BLOOD COUNT 7.9 K/mm3 (4.0-10.0)
[2016-11-20 17:52] LABS: CALCIUM LEVEL 8.3 MG/DL (8.8-10.2); CREATININE FOR GFR 2.39 MG/DL (0.70-1.30); GLOMERULAR FILTRATION RATE 28.7 (>42)
[2016-11-20 17:58] LABS: ALBUMIN 2.8 GM/DL (3.2-5.2); ALBUMIN/GLOBULIN RATIO 0.67 (1.00-1.93); ALKALINE PHOSPHATASE 183 U/L (45-117); ALT/SGPT 22 U/L (12-78); AST/SGOT 14 U/L (15-37); BILIRUBIN,DIRECT < 0.1 MG/DL (0.0-0.2); BILIRUBIN,TOTAL 0.2 MG/DL (0.2-1.0); FREE T4 0.94 NG/DL (0.76-1.46)
[2016-11-20 18:02] LABS: POTASSIUM SERUM 6.3 MEQ/L (3.5-5.1)
[2016-11-20] MEDS ORDERED: DEXTROSE 50% 50 ML SYRINGE IV STA (18:07)
[2016-11-20] MEDS ORDERED: CALCIUM GLUCONATE 1,000 MG in D5W MINI-BAG PLUS 100 ML IV ONE (18:15)
[2016-11-20] MEDS ORDERED: HumuLIN R (REGULAR) INSULIN (NovoLIN R) **100U/ML** PER UNIT IV ONE (18:15)
[2016-11-20] MEDS ORDERED: FUROSEMIDE 40 MG/4 ML VIAL (J1940) IV ONE (19:00)
--- NOTE | 2016-11-20 19:20 | REPUSA ---
CLINICAL HISTORY: Right upper quadrant pain. TECHNIQUE: Realtime sonographic images were obtained in multiple projections. FINDINGS: The liver is of uniform echo texture without evidence of mass or defect. There is no intra or extrah epatic biliary ductal dilatation. The common bile duct measures 2.7 mm. The gallbladder has gallsto neela with contracted gallbladder. The gallbladder wall is thickened measuring 3.3 mm. There is no elio cholecystic fluid. There is no abdominal ascites. The visualized portions of abdominal aorta present no abnormalities. The pancreas is not visualized due to bowel gas. The right kidney measures 10.7 x 5.0 x 5.04 cm. Ther e is echogenic sinus fat with calcified vessels. IMPRESSION: 1. Gallstones with contracted gallbladder. 2. Thickened gallbladder wall measuring 3.3 mm. 3. The findings are compatible with chronic cholecystitis. Consider correlation with hepatobiliary s can. Thank you for your kind referral of this patient. We appreciate the opportunity to participate in thi s patient's care.
[2016-11-20] MEDS ORDERED: SUCR1TAB56 PO (19:23)
[2016-11-20] MEDS ORDERED: SILV50CR TOP (19:23)
[2016-11-20] MEDS ORDERED: BACT800T5 PO (19:23)
[2016-11-20] MEDS ORDERED: METO10TA2 PO (19:23)
[2016-11-20] MEDS ORDERED: SOD POLYSTYRENE SULFONATE SUSP 15 GM/60 ML UD PO ONE (20:15)
[2016-11-20] MEDS ORDERED: ONDANSETRON 4MG/2ML VIAL (J2405) IV PRN (20:15)
[2016-11-20] MEDS ORDERED: METOCLOPRAMIDE 10 MG TAB PO PRN (20:15)
[2016-11-20] MEDS ORDERED: ONDANSETRON 4 MG TAB (S0181) PO PRN (20:15)
[2016-11-20] MEDS ORDERED: GLUCAGON FOR INJ 1 MG VIAL (J1610) SC PRN (20:15)
[2016-11-20] MEDS ORDERED: GLUCOSE 4 GM CHEW TABLET PO PRN (20:15)
[2016-11-20] MEDS ORDERED: CARVedilol 12.5 MG TAB PO SCH (21:00)
[2016-11-20] MEDS: HumaLOG INSULIN (NovoLOG) PER UNIT SC SCH (21:00)
[2016-11-20 21:38] LABS: POTASSIUM SERUM 5.5 MEQ/L (3.5-5.1)
--- NOTE | 2016-11-20 22:59 | HPEPDOC ---
Medical History and Physical Date of Admission November 20, 2016 at 20:14 History and Physical HISTORY AND PHYSICAL Date of admission: 11/20/2016 PCP: BENEDICT Sanders Chief complaint: shortness of breath and central chest pain HPI: 71-year-old male with diabetes mellitus type 2, hypertension, hyperlipidemia, chronic systolic CHF, AICD, coronary artery disease with history of OK and CABG, PVD with history of bilateral femoropopliteal, CKD stage III who presented to the emergency department as he was experiencing shortness of breath and central chest pain. He states that both of these started approximately 2 days ago, and has been constant in nature. He states that sleeping helps it, but moving makes it worse. He describes it as feeling like a horse is standing on his chest, but he denies any radiation from the central location. He also denies any difficulty breathing when he lays flat. He does report that he noticed he has tired very easily recently. He states that he did not use any of his home nitroglycerin. Past medical history: diabetes mellitus type 2, hypertension, hyperlipidemia, chronic systolic CHF, AICD, coronary artery disease with history of OK and CABG , PVD with history of bilateral femoropopliteal, CKD stage III Past surgical history: Coronary stents, bilateral femoropopliteal, CABG, AICD placement Family history: Hypertension, coronary artery disease Social history: The patient quit smoking approximately 4 years ago. He denies drug and alcohol use. He currently resides by himself but has local family for support Allergies: Neche Review of systems: General: Positive for chills, negative for fever Eyes: Negative for vision changes and discharge ENT: Negative for sore throat and nose bleed Cardiovascular: Positive for chest pain, negative for palpitations Respiratory: Positive for cough and shortness of breath GI: Positive for nausea, negative for vomiting and diarrhea Musculoskeletal: Negative for neck and back pain Skin: Negative for rash Neuro: Negative for headache and dizziness. Positive for numbness in his feet and legs ever since his surgery Psych: Negative for depression and suicidal ideation Endocrine: Negative for polyuria : Negative for dysuria Heme: Negative for bruising and bleeding Home meds: See below Physical exam: Vital signs: Vital Signs Date Time Temp Pulse Resp B/P (MAP) Pulse Ox O2 Delivery O2 Flow Rate FiO2 11/20/16 21:46 80 159/63 (95) 85 11/20/16 18:48 18 Room Air 11/20/16 16:04 97.4 Gen.: awake, alert, no acute distress Eyes: Extraocular movements intact, normal sclera ENT: Moist mucous membranes Cardiovascular: RRR, no murmurs rubs or gallops Lungs: crackles in bilateral bases Abdomen: Soft, TTP of RUQ, umbilicus, and LUQ Extremities: 1+ peripheral edema, open wound of left heal Neuro: alert and oriented 3, normal speech, no focal deficits Psych: Normal mood with congruent affect Labs and radiology: See below Potassium 6.3 Creatinine 2.39 Troponin negative Alkaline phosphatase 183 Chest x-ray shows interstitial edema and left pleural effusion Abdominal ultrasound shows chronic cholecystitis BNP greater than 1500 Assessment and plan: 71-year-old male with diabetes mellitus type 2, hypertension, hyperlipidemia, chronic systolic CHF, AICD, coronary artery disease with history of OK and CABG , PVD with history of bilateral femoropopliteal, CKD stage III who presented to the emergency department as he was experiencing shortness of breath and central chest pain. He is admitted with acute on chronic systolic CHF, hyperkalemia, and chronic cholecystitis. 1. Acute on chronic systolic CHF: The patient's initial troponin is negative. We will continue to trend these. We will follow his daily weights and I's and O' s, as we diurese him with IV Lasix. We will hold his home torsemide, as well as home spironolactone. 2. Chest pain: The patient's EKG does not appear grossly unchanged from prior. His initial troponin is negative, but we'll continue to trend these. I suspect that this is secondary to his acute CHF exacerbation. 3. Chronic cholecystitis: Patient reports some right upper quadrant pain and is tender upon exam. Imaging is consistent with chronic cholecystitis, and a HIDA scan is recommended. We will plan for a HIDA scan tomorrow morning. 4. Hyperkalemia: The patient's potassium was noted to be 6.3. He has already received insulin with dextrose, calcium gluconate, and Lasix in the emergency department. We will hold his home ARB, as well as home spironolactone. We will also give him a dose of Kayexalate and recheck his potassium later this evening. We will monitor him on telemetry. 5. Wound on left heel: Patient states that he follows with Dr. Forbes for this and his home medication list notes that he is currently taking Bactrim for this , as well as using Silvadene. We will continue these. It may be of value to contact Dr. Forbes in the morning to consider consultation or further instructions on management of this wound. 6. Diabetes mellitus type 2: Continue home morning and evening long-acting insulin. Sliding scale insulin while in-house. 7. Hypertension: We will continue the patient on his home Coreg. We are currently holding his home ARB given his hyperkalemia. We are also holding his home metoprolol, as it seems unusual that he would be on 2 beta blockers. 8. Hyperlipidemia, coronary artery disease with history of OK and CABG: We will continue the patient on his home aspirin and Plavix, as well as one of the 2 beta blockers he reports. The patient does not report taking a statin at home. Should be further evaluated by his primary physicians as an outpatient. 9. PVD with history of bilateral femoropopliteal: We will continue the patient' s home aspirin and Plavix. As mentioned above, the patient does not report taking a statin at home. This should be further evaluated by his primary physicians as an outpatient. 10. CK D stage III: The patient's baseline creatinine appears to be between 1.9 and 2.2. His creatinine upon admission is 2.39. We will monitor this closely while diuresing him. DVT prophylaxis: Heparin Dispo: admit as an inpatient to the service of Dr. Rosales CODE STATUS: DNR/DNI Vital Signs Vital Signs Date Time Temp Pulse Resp B/P (MAP) Pulse Ox O2 Delivery O2 Flow Rate FiO2 11/20/16 21:46 80 159/63 (95) 85 11/20/16 18:48 18 Room Air 11/20/16 16:04 97.4 Laboratory Data Labs 24H Laboratory Tests 2 11/20/16 16:31: White Blood Count 7.9, Red Blood Count 3.29L, Hemoglobin 9.0L, Hematocrit 29.1L , Mean Corpuscular Volume 88.3, Mean Corpuscular Hemoglobin 27.4, Mean Corpuscular Hemoglobin Concent 31.0L, Red Cell Distribution Width 14.1, Platelet Count 254, Neutrophils (%) (Auto) 78.9H, Lymphocytes (%) (Auto) 11.8L, Monocytes (%) (Auto) 5.5H, Eosinophils (%) (Auto) 1.2, Basophils (%) (Auto) 0.4 , Neutrophils # (Auto) 6.2, Lymphocytes # (Auto) 0.9L, Monocytes # (Auto) 0.4, Eosinophils # (Auto) 0.1, Basophils # (Auto) 0.0, Large Unclassified Cells % 2.1 , Large Unclassified Cells # 0.2, Anion Gap 3L, Glomerular Filtration Rate 28.7L , Blood Urea Nitrogen 57H, Creatinine 2.39H, Sodium Level 135L, Potassium Level 6.3*H, Chloride Level 106, Carbon Dioxide Level 26, Calcium Level 8.3L, Total Creatine Kinase 110, Aspartate Amino Transf (AST/SGOT) 14L, Alanine Aminotransferase (ALT/SGPT) 22, Alkaline Phosphatase 183H, Total Bilirubin 0.2, Direct Bilirubin < 0.1, Creatine Kinase MB 5.0H, Creatine Kinase MB Relative Index 4.54H, Troponin I 0.02, B-Type Natriuretic Peptide 1560H, Total Protein 7.0, Albumin 2.8L, Albumin/Globulin Ratio 0.67L, Lipase 268, Thyroid Stimulating Hormone (TSH) 5.630H, Free Thyroxine 0.94 11/20/16 20:53: Potassium Level 5.5H, Total Creatine Kinase 94, Creatine Kinase MB 3.9H, Creatine Kinase MB Relative Index 4.14H, Troponin I 0.03# CBC/BMP Laboratory Tests 11/20/16 16:31 Red Blood Count 3.29 L, Mean Corpuscular Volume 88.3, Mean Corpuscular Hemoglobin 27.4, Mean Corpuscular Hemoglobin Concent 31.0 L, Red Cell Distribution Width 14.1, Neutrophils (%) (Auto) 78.9 H, Lymphocytes (%) (Auto) 11.8 L, Monocytes (%) (Auto) 5.5 H, Eosinophils (%) (Auto) 1.2, Basophils (%) ( Auto) 0.4, Neutrophils # (Auto) 6.2, Lymphocytes # (Auto) 0.9 L, Monocytes # ( Auto) 0.4, Eosinophils # (Auto) 0.1, Basophils # (Auto) 0.0, Calcium Level 8.3 L , Total Creatine Kinase 110 11/20/16 20:53 Total Creatine Kinase 94 Home Medications Scheduled Aspirin (Aspirin) 325 Mg Tab, 325 MG PO DAILY Calcium/Vitamin D (Oyster Shell Calcium 250+ 250-125 mg-Unit) 1 Tab Tab, 1 TAB PO BID Carvedilol (Carvedilol) 12.5 Mg Tab, 12.5 MG PO BID Clopidogrel Bisulfate (Clopidogrel) 75 Mg Tab, 75 MG PO DAILY Insulin Glargine (Lantus) 1 Units/0.01 Ml Susp, 100 UNITS SC QAM Insulin Glargine (Lantus) 1 Units/0.01 Ml Susp, 85 UNITS SC QHS Losartan Potassium (Losartan Potassium) 50 Mg Tab, 50 MG PO DAILY Metoprolol Succinate (Metoprolol Succinate ER) 50 Mg Tab, 50 MG PO DAILY Omeprazole (Omeprazole) 40 Mg Cap, 40 MG PO DAILY Pregabalin (Lyrica) 150 Mg Cap, 150 MG PO BID Silver Sulfadiazine (Ssd) 1 % Cre, 1 DOSE TOP DAILY APPLY TO FEET Spironolactone (Spironolactone) 50 Mg Tab, 50 MG PO DAILY Sucralfate (Sucralfate) 1 Gm Tab, 1 GM PO ACHS Torsemide (Torsemide) 20 Mg Tab, 60 MG PO BID Trimethoprim/Sulfamethoxazole (Bactrim Ds 800-160 mg) 1 Tab Tab, 1 TAB PO BID STARTED 11/12/16 FOR 10 DAYS Scheduled PRN Albuterol Sulfate (Albuterol Sulfate) 2.5 Mg/3 Ml Nebu, 2.5 MG INH QID PRN for SHORTNESS OF BREATH Metoclopramide HCl (Metoclopramide HCl) 10 Mg Tab, 10 MG PO AC PRN for NAUSEA Nitroglycerin (Nitrostat) 0.4 Mg Subl, 0.4 MG SL Q5MP PRN for CHEST PAIN Oxycodone/Acetaminophen (Oxycodone/Acetaminophen 5-325 mg) 1 Tab Tab, 2 TAB PO Q8H PRN for PAIN Allergies Coded Allergies: TURKEY (Verified Adverse Reaction, Mild, VOMITING, 10/19/16) VARGHESE VELASCO November 20, 2016 22:59
[2016-11-21] MEDS: HEPARIN SOD (PORCINE) 5000 UNITS/ML VIAL SC SCH ×4 (00:11→21:05)
[2016-11-21] MEDS: LEVEMIR (INSULIN DETEMIR) 1 UNITS/0.01ML SC SCH ×2 (00:11→21:06)
[2016-11-21] MEDS: SUCRALFATE 1 GM TAB PO SCH ×5 (00:12→21:05)
[2016-11-21] MEDS: BACTRIM 160MG/800MG DS TAB PO SCH ×3 (00:12→21:05)
[2016-11-21] MEDS: PREGABALIN 75 MG CAP(LYRICA) PO SCH ×2 (00:13→21:05)
[2016-11-21 04:00] VITALS: BP 159/69
[2016-11-21] MEDS: FUROSEMIDE 100 MG/10 ML VIAL (J1940) IV SCH ×3 (04:32→19:56)
--- NOTE | 2016-11-21 05:37 | REP ---
REASON: Dyspnea, cough. COMPARISON: 10/18/2016. AP and lateral views were obtained. There is cardiomegaly. There has been previous median sternotomy status quo. Single chamber bipolar pacemaker device status quo. There is new left costophrenic angle blunting. Increased interstitial markings are seen throughout the lung ramos. IMPRESSION: Left pleural effusion and suspected interstitial edema with cardiomegaly. Signed by Giovanni Mendez DO 11/21/2016 03:36 P
[2016-11-21 05:41] LABS: BASO % 0.5 % (0.0-1.0); EOS # 0.2 K/mm3 (0.0-0.50); EOS % 2.6 % (0.0-3.0); LARGE UNSTAINED CELL # 0.1 K/mm3 (0.0-0.4); LYMPH # 1.2 K/mm3 (1.5-4.5); LYMPH % 16.9 % (24.0-44.0); MEAN CORPUSCULAR HEMOGLOBIN 27.5 pg (27.0-33.0); MEAN CORPUSCULAR VOLUME 88.9 fl (80.0-96.0); MONO # 0.4 K/mm3 (0.0-0.8); MONO % 5.7 % (0.0-5.0); NEUTROPHILS # 4.9 K/mm3 (1.8-7.7); NEUTROPHILS % 72.3 % (36.0-66.0); PLATELET COUNT, AUTOMATED 234 k/mm3 (150-450); RED CELL DISTRIBUTION WIDTH 14.1 % (11.5-14.5); WHITE BLOOD COUNT 6.8 K/mm3 (4.0-10.0)
[2016-11-21 06:00] LABS: ALBUMIN 2.5 GM/DL (3.2-5.2); ALBUMIN/GLOBULIN RATIO 0.54 (1.00-1.93); BILIRUBIN,TOTAL 0.2 MG/DL (0.2-1.0); CALCIUM LEVEL 8.1 MG/DL (8.8-10.2); CREATININE FOR GFR 2.39 MG/DL (0.70-1.30); GLOMERULAR FILTRATION RATE 28.7 (>42); MAGNESIUM LEVEL 2.3 MG/DL (1.8-2.4); TOTAL PROTEIN 7.1 GM/DL (6.4-8.2)
[2016-11-21 06:07] LABS: POTASSIUM SERUM 5.5 MEQ/L (3.5-5.1)
[2016-11-21] MEDS: ALBUTEROL SULFATE 2.5 MG/0.5 ML INH NEB SOLN INH PRN ×2 (07:06→20:19)
[2016-11-21] MEDS ORDERED: SOD POLYSTYRENE SULFONATE SUSP 15 GM/60 ML UD PO ONE (07:45)
[2016-11-21 08:00] VITALS: BP 125/59
[2016-11-21] MEDS: ASPIRIN 325 MG TAB PO SCH (08:30)
[2016-11-21] MEDS: CLOPIDOGREL 75 MG TAB PO SCH (08:30)
[2016-11-21] MEDS: OMEPRAZOLE 20 MG CAP PO SCH (08:30)
[2016-11-21] MEDS: SILVER SULFADIAZINE 1% CR 50 GM JAR TOP SCH (08:31)
[2016-11-21] MEDS: HumaLOG INSULIN (NovoLOG) PER UNIT SC SCH ×4 (08:32→20:18)
[2016-11-21] MEDS: CARVedilol 12.5 MG TAB PO SCH ×2 (08:33→21:05)
[2016-11-21 08:44] LABS: PERCENT SATURATION 15.5 % (19.7-37.4)
[2016-11-21] MEDS ORDERED: PREGABALIN 50 MG CAP (LYRICA) PO ONE (09:00)
[2016-11-21] MEDS ORDERED: METOPROLOL SUCC (TopROL XL) 50MG **XL** TAB PO SCH (09:00)
[2016-11-21] MEDS ORDERED: LEVEMIR (INSULIN DETEMIR) 1 UNITS/0.01ML SC SCH (09:00)
[2016-11-21 11:59] VITALS: BP 141/62
[2016-11-21 12:15] VITALS: BP 138/61
[2016-11-21] MEDS: DEXTROSE 50% 50 ML SYRINGE IV PRN (15:13)
--- NOTE | 2016-11-21 15:19 | REP ---
HEPATOBILIARY SCAN: HISTORY: Chronic cholecystitis. Abdominal pain. Nausea and vomiting. TECHNIQUE: 6.2 mCi technetium 99m mebrofenin is injected and sequential anterior abdominal images are acquired. SCINTIGRAPHIC FINDINGS: The initial hepatocellular parenchymal uptake phase is normal and homogeneous. The gallbladder is first visualized along with intrahepatic bile ducts at the 10-minute image. Subsequent images demonstrate normal washout from the liver parenchyma into the gallbladder. There is delayed biliary to bowel transit time as the bowel is not labeled by 60 minutes. This is nonspecific. IMPRESSION: 1. The cystic duct is patent. Gallbladder is visualized normally. 2. Normal liver washout. 3. Mildly delayed biliary to bowel transit time. Nonspecific. Signed by Edgard Marion MD 11/21/2016 04:00 P
[2016-11-21 16:00] VITALS: BP 142/63
--- NOTE | 2016-11-21 18:26 | IPNPDOC ---
Date Seen The patient was seen on 11/21/16. Progress Note SUBJECTIVE: Mr. Drake is evaluated bedside this morning. He is laying on his left side during evaluation. He reports no more chest pain or shortness of breath. Denies continued nausea and vomiting. Blood pressure remains elevated and antihypertensive has been increased. Mild worsening of anemia. Iron studies and stool for occult blood being obtained. Potassium remains high. Another dose of Kayexalate is being provided. HIDA scan for chronic cholecystitis will be obtained at 2 PM. Discussed bilateral foot wounds with wound care and recommendations outlined in assessment and plan. OBJECTIVE PHYSICAL EXAMINATION: VITAL SIGNS: Please see below. GENERAL: Well-nourished, well-developed male laying on his left side during evaluation this morning and in no apparent distress HEENT: Atraumatic, normocephalic, PERRL, EOMI, oral mucosa appears pink and moist, nasal septum appears midline, nares are patent CARDIOVASCULAR: Regular rate and rhythm, normal S1 and S2, no murmur, rub, click appreciated RESPIRATORY: ABDOMINAL: Tender to palpation in the pubic region, soft throughout the rest of the abdomen without tenderness EXTREMITIES: Category 2 wound ulcer noted on the entire heel of the left foot without drainage or bleeding, grade 3 wound ulcer noted on the right medial side of the heel with granulation tissue, trace edema noted bilateral lower extremities NEUROLOGICAL: Cranial nerves II through XII grossly intact PSYCHOLOGICAL: Mood and affect appear appropriate, somewhat sleepy LABORATORY DATA: Please see below. MICROBIOLOGY: Please see below. IMAGING: HIDA scan IMPRESSION: 1. The cystic duct is patent. Gallbladder is visualized normally. 2. Normal liver washout. 3. Mildly delayed biliary to bowel transit time. Nonspecific. DVT prophylaxis ordered?: Heparin 5000 units subcutaneous every 8 hours ASSESSMENT AND PLAN: Mr. Drake is a 71-year-old male with acute on chronic systolic congestive heart failure, hyperkalemia, and chronic cholecystitis. PROBLEMS: 1. Acute on chronic systolic congestive heart failure: Remains on Lasix. Continue to hold metoprolol secondary to acute exacerbation.. 2. Hyperkalemia: Received another dose of Kayexalate. Obtained EKG. 3. Hypertension. Increased patient's Coreg to 25 mg twice a day. Blood pressures appear better controlled. We'll continue to monitor. 4. Chronic cholecystitis: HIDA scan report noted above. Likely that no intervention will be planned at this time. 5. Anemia: Denies active bleeding. Iron studies reveal possible iron deficiency anemia or anemia of chronic disease. Obtaining stool for occult blood. 6. Bilateral lower extremity wound ulcers: Verbally discussed case with virtual reality specialist. Recommended continued Silvadene to wounds on forefeet and wet-to- dry dressings for bilateral heels. Continue with Bactrim. 7. Nausea: Appears improved. Continue with Zofran and Reglan as needed. 8. Diabetes mellitus: Continue with long-acting insulin and sliding scale with hyperglycemic protocol. 9. Coronary artery disease: Continue with aspirin and Plavix. 10. Gastric esophageal reflux disease: Continue with Prilosec and Carafate. 11. Neuropathy. Continue Lyrica. 12. Chronic kidney disease stage III: Continue to hold spironolactone and torsemide. Continue to monitor with daily BMP. DISPOSITION: Continue to monitor for signs of clinical improvement. Anticipate discharge in the next 48-72 hours. [facility]O Vital Signs Date Time Temp Pulse Resp B/P (MAP) Pulse Ox O2 Delivery O2 Flow Rate FiO2 11/21/16 16:00 97.2 64 19 142/63 (89) 96 Room Air I&O- Last 24 Hours up to 6 AM 11/21/16 06:00 Intake Total 240 ml Balance 240 ml Laboratory Data 24H LABS Laboratory Tests 2 11/20/16 20:53: Potassium Level 5.5H, Total Creatine Kinase 94, Creatine Kinase MB 3.9H, Creatine Kinase MB Relative Index 4.14H, Troponin I 0.03# 11/20/16 23:50: Bedside Glucose (Misc Panel) 163H 11/21/16 05:29: Potassium Level 5.5H, Total Creatine Kinase 92, Creatine Kinase MB 4.1H, Creatine Kinase MB Relative Index 4.45H, Troponin I 0.02#, White Blood Count 6.8 , Red Blood Count 3.11L, Hemoglobin 8.6L, Hematocrit 27.7L, Mean Corpuscular Volume 88.9, Mean Corpuscular Hemoglobin 27.5, Mean Corpuscular Hemoglobin Concent 31.0L, Red Cell Distribution Width 14.1, Platelet Count 234, Neutrophils (%) (Auto) 72.3H, Lymphocytes (%) (Auto) 16.9L, Monocytes (%) (Auto ) 5.7H, Eosinophils (%) (Auto) 2.6, Basophils (%) (Auto) 0.5, Neutrophils # ( Auto) 4.9, Lymphocytes # (Auto) 1.2L, Monocytes # (Auto) 0.4, Eosinophils # ( Auto) 0.2, Basophils # (Auto) 0.0, Large Unclassified Cells % 2.0, Large Unclassified Cells # 0.1, Anion Gap 8, Glomerular Filtration Rate 28.7L, Blood Urea Nitrogen 51H, Creatinine 2.39H, Sodium Level 140, Chloride Level 109H, Carbon Dioxide Level 23, Calcium Level 8.1L, Aspartate Amino Transf (AST/SGOT) 9L, Alanine Aminotransferase (ALT/SGPT) 17, Alkaline Phosphatase 162H, Total Bilirubin 0.2, Total Protein 7.1, Albumin 2.5L, Magnesium Level 2.3, Iron Level 46L, Total Iron Binding Capacity 297, Transferrin % Saturation 15.5L, Ferritin 142, Albumin/Globulin Ratio 0.54L 11/21/16 09:06: 11/21/16 11:28: Bedside Glucose (Misc Panel) 108 11/21/16 12:58: Total Creatine Kinase 92, Creatine Kinase MB 4.8H, Creatine Kinase MB Relative Index 5.21H, Troponin I 0.03# 11/21/16 15:07: Bedside Glucose (Misc Panel) 27*L 11/21/16 15:24: Bedside Glucose Confirm (Misc) 75 11/21/16 16:03: Bedside Glucose (Misc Panel) 138H 11/21/16 17:02: Bedside Glucose (Misc Panel) 197H CBC/BMP Laboratory Tests 11/20/16 20:53 Total Creatine Kinase 94 11/21/16 05:29 Total Creatine Kinase 92, Red Blood Count 3.11 L, Mean Corpuscular Volume 88.9, Mean Corpuscular Hemoglobin 27.5, Mean Corpuscular Hemoglobin Concent 31.0 L, Red Cell Distribution Width 14.1, Neutrophils (%) (Auto) 72.3 H, Lymphocytes (% ) (Auto) 16.9 L, Monocytes (%) (Auto) 5.7 H, Eosinophils (%) (Auto) 2.6, Basophils (%) (Auto) 0.5, Neutrophils # (Auto) 4.9, Lymphocytes # (Auto) 1.2 L, Monocytes # (Auto) 0.4, Eosinophils # (Auto) 0.2, Basophils # (Auto) 0.0, Calcium Level 8.1 L, Aspartate Amino Transf (AST/SGOT) 9 L, Alanine Aminotransferase (ALT/SGPT) 17, Alkaline Phosphatase 162 H, Total Bilirubin 0.2 , Total Protein 7.1, Albumin 2.5 L GME ATTESTATION GME ATTESTATION My preceptor for this patient encounter was physically present in the building during the encounter and was fully available. As needed, all aspects of the patient interview, examination, medical decision making process, and medical care plan development were reviewed and approved by the preceptor. Preceptor is aware and concurs with the plan as stated in the body of this note and will attest to such by his/her cosignature. ATTENDING NOTE I, Pj Carrera, have both independently examined this patient as well as reviewed the documentation. I have discussed in detail with the resident the findings and plan of treatment as documented in the residents documentation. I will continue to follow the patient and offer further guidance to the patients care as necessary during this hospital stay. STACIA HORTA November 21, 2016 18:26 PJ CARRERA MD December 03, 2016 14:18
[2016-11-21 20:00] VITALS: BP 110/68
--- NOTE | 2016-11-21 20:01 | ECGEPIP ---
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
[2016-11-21] MEDS: PERCOCET 5MG/325MG TAB PO PRN (21:13)
[2016-11-22] VITALS (24 sets, daily range): BP systolic 95–155; BP diastolic 51–115; O2SAT 99
[2016-11-22] MEDS: ACETAMINOPHEN TAB 650MG DOSE (2X325MG) PO PRN (00:53)
[2016-11-22] MEDS: PERCOCET 5MG/325MG TAB PO PRN (03:39)
[2016-11-22] MEDS: FUROSEMIDE 100 MG/10 ML VIAL (J1940) IV SCH ×2 (03:39→14:39)
[2016-11-22 05:19] LABS: BASO % 0.8 % (0.0-1.0); EOS # 0.3 K/mm3 (0.0-0.50); EOS % 4.8 % (0.0-3.0); LARGE UNSTAINED CELL # 0.1 K/mm3 (0.0-0.4); LARGE UNSTAINED CELL % 2.3 % (0.0-4.0); LYMPH # 1.4 K/mm3 (1.5-4.5); LYMPH % 25.1 % (24.0-44.0); MEAN CORPUSCULAR HEMOGLOBIN 27.5 pg (27.0-33.0); MEAN CORPUSCULAR HGB CONC 30.8 g/dl (32.0-36.5); MEAN CORPUSCULAR VOLUME 89.3 fl (80.0-96.0); MONO # 0.4 K/mm3 (0.0-0.8); MONO % 7.2 % (0.0-5.0); NEUTROPHILS # 3.4 K/mm3 (1.8-7.7); NEUTROPHILS % 59.8 % (36.0-66.0); PLATELET COUNT, AUTOMATED 220 k/mm3 (150-450); RED CELL DISTRIBUTION WIDTH 14.2 % (11.5-14.5); WHITE BLOOD COUNT 5.6 K/mm3 (4.0-10.0)
[2016-11-22] MEDS: HEPARIN SOD (PORCINE) 5000 UNITS/ML VIAL SC SCH ×2 (05:26→14:00)
[2016-11-22 05:38] LABS: ALBUMIN 2.4 GM/DL (3.2-5.2); ALBUMIN/GLOBULIN RATIO 0.59 (1.00-1.93); BILIRUBIN,TOTAL 0.1 MG/DL (0.2-1.0); CALCIUM LEVEL 7.6 MG/DL (8.8-10.2); CREATININE FOR GFR 2.83 MG/DL (0.70-1.30); GLOMERULAR FILTRATION RATE 23.6 (>42); MAGNESIUM LEVEL 2.4 MG/DL (1.8-2.4); POTASSIUM SERUM 4.8 MEQ/L (3.5-5.1); TOTAL PROTEIN 6.5 GM/DL (6.4-8.2)
[2016-11-22] MEDS: DEXTROSE 50% 50 ML SYRINGE IV PRN ×8 (05:43→23:45)
[2016-11-22] MEDS: HumaLOG INSULIN (NovoLOG) PER UNIT SC SCH ×4 (05:50→20:48)
[2016-11-22] MEDS ORDERED: BISACODYL 5 MG TAB PO PRN (07:30)
[2016-11-22] MEDS ORDERED: SENOKOT S TAB PO PRN (07:30)
--- NOTE | 2016-11-22 08:27 | ECGEPIP ---
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
[2016-11-22] MEDS ORDERED: CARVedilol 12.5 MG TAB PO SCH (09:00)
[2016-11-22] MEDS ORDERED: ASCORBIC ACID 250 MG TAB PO SCH (09:00)
[2016-11-22 09:10] LABS: ABG BASE EXCESS -4.2 (-2.0-2.0); ABG HCO3 21.9 MEQ/L (22.0-26.0); ABG PARTIAL PRESSURE CO2 44.2 mmHg (35.0-45.0); ABG PARTIAL PRESSURE O2 89.8 mmHg (75.0-100.0); ABG TOTAL CO2 23.2 MEQ/L (23.0-31.0); ABG pH (ARTERIAL) 7.312 UNITS (7.350-7.450)
[2016-11-22] MEDS: FERROUS SULFATE 325MG TAB PO SCH (09:29)
[2016-11-22] MEDS: PREGABALIN 75 MG CAP(LYRICA) PO SCH ×3 (09:29→21:09)
[2016-11-22] MEDS: ASPIRIN 325 MG TAB PO SCH (09:29)
[2016-11-22] MEDS: BACTRIM 160MG/800MG DS TAB PO SCH (09:29)
[2016-11-22] MEDS: OMEPRAZOLE 20 MG CAP PO SCH (09:29)
[2016-11-22] MEDS: CLOPIDOGREL 75 MG TAB PO SCH (09:30)
[2016-11-22] MEDS: SUCRALFATE 1 GM TAB PO SCH ×2 (09:30→12:00)
--- NOTE | 2016-11-22 09:59 | REP ---
NONCONTRAST HEAD CT: HISTORY: Left-sided weakness. Comparison head CT study August 04, 2016. 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 Bone window settings demonstrate an intact bony calvarium. There is moderate vascular calcification in the distal vertebral and carotid arteries. The visualized paranasal sinuses are clear. No intraorbital abnormality is seen. There is mild diffuse cerebral atrophy. Otero-white differentiation pattern is normal above and below the tentorium. There is no evidence of hemorrhage or infarction. No mass, extra-axial fluid collection or midline shift is seen. IMPRESSION: Diffuse atrophy and vascular calcification. No acute intracranial lesion. Signed by Edgard Marion MD 11/22/2016 10:26 A
[2016-11-22 10:30] LABS: RETIC HEMOGLOBIN CONTENT CHr 28.9 PG (24-36); RETICULOCYTE ABSOLUTE ADVIA212 56 x10(9)/L (17-77)
[2016-11-22 11:10] LABS: PHOSPHORUS LEVEL 6.6 MG/DL (2.5-4.9)
[2016-11-22 11:29] LABS: FOLATE 5.3 NG/ML (>5.4)
[2016-11-22] MEDS ORDERED: SODIUM CHLORIDE 0.9% 1000 ML IV ONE ×2 (12:30→18:00)
--- NOTE | 2016-11-22 13:58 | REP ---
AP PORTABLE CHEST: 11/22/2016 COMPARISON: 11/20/2016, 10/18/2016 chest x-rays. CLINICAL HISTORY: Apnea. Single lead pacer over the left upper chest with lead terminating in the right ventricle again seen. The sternotomy wires are unchanged. There is cardiomegaly with left atrial and left ventricular enlargement. Small left effusion suspected with retrocardiac opacity representing effusion or atelectasis/infiltrate. I cannot see a definite right effusion but on lordotic projections, this is limited for evaluation. There is venous hypertension present with underlying fibrosis making interstitial edema difficult to exclude calcified tortuous aorta. There are degenerative changes in the spine. IMPRESSION: 1. Cardiomegaly with left atrial and ventricular enlargement, single lead pacer and venous hypertension. Underlying fibrosis makes interstitial edema difficult to exclude. 2. Retrocardiac left lower lobe atelectasis or infiltrate with effusion. Left pleural effusion noted, a small right effusion difficult to exclude. Signed by Gilberto Petty MD 11/22/2016 05:28 P
[2016-11-22] MEDS ORDERED: CALCIUM GLUCONATE 1,000 MG in D5W MINI-BAG PLUS 100 ML IV ONE (14:30)
[2016-11-22 15:14] LABS: ALBUMIN 2.4 GM/DL (3.2-5.2); ALBUMIN/GLOBULIN RATIO 0.55 (1.00-1.93); ALKALINE PHOSPHATASE 128 U/L (45-117); ALT/SGPT 18 U/L (12-78); ANION GAP 8 MEQ/L (8-16); AST/SGOT 10 U/L (15-37); BILIRUBIN,TOTAL < 0.1 MG/DL (0.2-1.0); BLOOD UREA NITROGEN 62 MG/DL (7-18); CARBON DIOXIDE LEVEL 22 MEQ/L (21-32); CHLORIDE LEVEL 106 MEQ/L (98-107); CREATININE FOR GFR 3.33 MG/DL (0.70-1.30); GLOMERULAR FILTRATION RATE 19.6 (>42); GLUCOSE, FASTING 92 MG/DL (83-110); SODIUM LEVEL 136 MEQ/L (136-145); TOTAL PROTEIN 6.8 GM/DL (6.4-8.2)
[2016-11-22 15:26] LABS: POTASSIUM SERUM 5.9 MEQ/L (3.5-5.1)
[2016-11-22] MEDS: SILVER SULFADIAZINE 1% CR 50 GM JAR TOP SCH (15:30)
--- NOTE | 2016-11-22 15:40 | IPNPDOC ---
Date Seen The patient was seen on 11/22/16. Progress Note SUBJECTIVE: Mr. Drake is a 71-year-old male who was evaluated at bedside this morning. He was quite lethargic this morning and did not respond to sternal rub or fingernail manipulation. Blood glucose this morning was 51. Obtained a follow-up bedside fingerstick blood glucose and was 119. Administered half ampule D5. Follow-up fingerstick blood glucose was 151. Patient's clinical picture improved somewhat in that he was able to open his eyes, but was not able to respond effectively when asked to squeeze fingers. Pupils were minimally responsive. Obtained a head CT without contrast. Administered 1 more half ampule D50. Upon follow-up evaluation patient was sitting in bed attempting to eat breakfast. Appeared to have difficulty in maintaining muscle strength in upper extremities, however when asked to squeeze fingers he was able to do so. Patient's responsiveness continues to fluctuate. He became hypotensive and has more consistently remained bradycardic. Ordered an EKG which showed T-wave inversions in V4-6. Prior EKGs have shown T-wave inversions in V5-6. Cardiac markers were ordered, but remained negative. ABG was ordered and was normal. Patient's hemoglobin and hematocrit have continued to decline and for that reason 2 units of blood was ordered for transfusion. Patient unable to sign consent form and consent was obtained from Vanessa Baumann, daughter. Consent confirmed with [place], charge nurse. Initiated a 250 normal saline bolus for hypotension. Obtained a chest x-ray secondary to patient becoming hypoxic and it revealed worsening pulmonary edema. Discontinued the fluid bolus. OBJECTIVE PHYSICAL EXAMINATION: VITAL SIGNS: Please see below. GENERAL: Obese male lying in the hospital bed, lethargic, not responsive to sternal rub HEENT: Atraumatic, normocephalic, minimal pupillary response, unable to follow commands, edentulous CARDIOVASCULAR: Grade 2/6 systolic murmur heard best over the second intercostal space on the right and the left, normal S1 and S2 RESPIRATORY: Clear to auscultation bilaterally, no accessory muscle use, no wheeze, rhonchi, crackles appreciated ABDOMINAL: Distended, involuntary guarding in the hypogastric region with deep palpation, diminished bowel sounds EXTREMITIES: Peripheral pulses appreciated bilaterally in upper and lower extremities, wound ulcers on bilateral lower feet are bandaged, +1 in the noted in the bilateral lower extremities NEUROLOGICAL: Minimally responsive at this time PSYCHOLOGICAL: Lethargic at times LABORATORY DATA: Please see below. MICROBIOLOGY: Please see below. IMAGING: CT of the head without contrast IMPRESSION: Diffuse atrophy and vascular calcification. No acute intracranial lesion. Portable chest x-ray IMPRESSION: 1. Cardiomegaly with left atrial and ventricular enlargement, single lead pacer and venous hypertension. Underlying fibrosis makes interstitial edema difficult to exclude. 2. Retrocardiac left lower lobe atelectasis or infiltrate with effusion. Left pleural effusion noted, a small right effusion difficult to exclude. Renal ultrasound Pending Echocardiogram: Pending DVT prophylaxis ordered?: Plavix 75 mg daily ASSESSMENT AND PLAN: Mr. Drake is a 71-year-old male who presents with acute on chronic systolic congestive heart failure. Now appears to have some evidence of encephalopathy and hypoglycemia with differentials being evaluated at this time. PROBLEMS: 1. Encephalopathy: Likely multifactorial, including cardiorenal syndrome, beta juan daniel toxicity, hypoglycemia. Follow-up with repeat CMP, discontinued beta blockers, discontinued basal insulin. Ammonia and lactic acid negative. CT of the head negative. 2. Hypoglycemia: Discontinued basal insulin. Managed with sliding scale and hypoglycemic protocol. Fingerstick blood glucoses every 1 hour. 3. Acute hypoxic respiratory failure: Likely multifactorial, including acute exacerbation of chronic systolic congestive heart failure pushing patient into acute pulmonary edema. Ordered oxygen with orders to remain between 88-92%. Continue Lasix 60 mg every 8 hours. ABG was normal. 4. Acute kidney injury superimposed on chronic kidney disease: Considering prerenal, intrinsic, or postrenal causes. Consult nephrology. Obtain CMP. Obtain renal ultrasound. Urinalysis obtained. Jordan catheter in place. Hold torsemide and spironolactone. 5. Bradycardia: Obtained EKG which showed T-wave inversions in V4-6. Denies chest pain. Cardiac markers thus far been negative. Discontinued Coreg. Consulted cardiology. 6. Hypotension: Multifactorial, including beta juan daniel toxicity and acute pulmonary edema secondary to acute on chronic systolic congestive heart failure. Initially provided normal saline fluid bolus, but discontinued after blood transfusion began. 7. Anemia: Appears to be worsening. Iron studies obtained. Pending stool for occult blood. Transfusing 2 units of blood. 8. Hyperkalemia: Received Kayexalate. Normalized today. EKG shows T-wave inversions in V4-6. Prior EKG shows T-wave inversions in V5-6 only. 9. Chronic cholecystitis: Likely that no intervention will be planned at this time. 10. Bilateral lower extremity wound ulcers: Continued Silvadene to wounds on forefeet and wet-to-dry dressings for bilateral heels. Continue with Bactrim. 11. Coronary artery disease: Continue with aspirin and Plavix. 12. Gastric esophageal reflux disease: Continue with Prilosec and Carafate. 13. Neuropathy. Continue Lyrica. DISPOSITION: Transferred to the ICU. Cardiology and nephrology consult. Prognosis guarded at this time. CODE STATUS DNR/DNI. VS, I&O, 24H, Fishbone Vital Signs/I&O Vital Signs Date Time Temp Pulse Resp B/P (MAP) Pulse Ox O2 Delivery O2 Flow Rate FiO2 11/22/16 09:00 54 109/56 11/22/16 08:00 97.6 18 97 Room Air 11/22/16 08:00 25.0 100 I&O- Last 24 Hours up to 6 AM 11/22/16 06:00 Intake Total 2160 ml Output Total 1200 ml Balance 960 ml Laboratory Data 24H LABS Laboratory Tests 2 11/21/16 12:58: Total Creatine Kinase 92, Creatine Kinase MB 4.8H, Creatine Kinase MB Relative Index 5.21H, Troponin I 0.03# 11/21/16 15:07: Bedside Glucose (Misc Panel) 27*L 11/21/16 15:24: Bedside Glucose Confirm (Misc) 75 11/21/16 16:03: Bedside Glucose (Misc Panel) 138H 11/21/16 17:02: Bedside Glucose (Misc Panel) 197H 11/21/16 20:13: Bedside Glucose (Misc Panel) 108 11/22/16 03:44: Bedside Glucose (Misc Panel) 92 11/22/16 04:51: White Blood Count 5.6, Red Blood Count 2.90L, Hemoglobin 8.0L, Hematocrit 25.9L , Mean Corpuscular Volume 89.3, Mean Corpuscular Hemoglobin 27.5, Mean Corpuscular Hemoglobin Concent 30.8L, Red Cell Distribution Width 14.2, Platelet Count 220, Neutrophils (%) (Auto) 59.8, Lymphocytes (%) (Auto) 25.1, Monocytes (%) (Auto) 7.2H, Eosinophils (%) (Auto) 4.8H, Basophils (%) (Auto) 0.8 , Neutrophils # (Auto) 3.4, Lymphocytes # (Auto) 1.4L, Monocytes # (Auto) 0.4, Eosinophils # (Auto) 0.3, Basophils # (Auto) 0.0, Large Unclassified Cells % 2.3 , Large Unclassified Cells # 0.1, Absolute Reticulocyte Count 56, Percent Reticulocyte Count 1.90H, Reticulocyte Hgb Content (CHr) 28.9, Anion Gap 8, Glomerular Filtration Rate 23.6L, Blood Urea Nitrogen 58H, Creatinine 2.83H, Sodium Level 140, Potassium Level 4.8, Chloride Level 107, Carbon Dioxide Level 25, Calcium Level 7.6L, Aspartate Amino Transf (AST/SGOT) 14L, Alanine Aminotransferase (ALT/SGPT) 16, Alkaline Phosphatase 136H, Total Bilirubin 0.1L , Total Protein 6.5, Albumin 2.4L, Magnesium Level 2.4, Albumin/Globulin Ratio 0.59L 11/22/16 06:11: Bedside Glucose (Misc Panel) 105 11/22/16 08:02: Bedside Glucose (Misc Panel) 119H 11/22/16 08:28: Bedside Glucose (Misc Panel) 151H 11/22/16 08:59: Bedside Glucose (Misc Panel) 123H 11/22/16 09:07: Blood Gas Bicarbonate Standard 21.0L, Arterial Blood pH 7.312L, Arterial Blood Partial Pressure CO2 44.2, Arterial Blood Partial Pressure O2 89.8, Arterial Blood Total CO2 23.2, Arterial Blood HCO3 21.9L, Arterial Blood Base Excess - 4.2L, Arterial Blood Oxygen Saturation 97.1, Arterial Blood Gas Puncture Site RT RADIAL 11/22/16 10:32: Lactic Acid Level 0.8, Phosphorus Level 6.6H, Total Creatine Kinase 89, Creatine Kinase MB 6.5H, Creatine Kinase MB Relative Index 7.30H, Troponin I 0.02#, Vitamin B12 Level 618, Folate 5.3L CBC/BMP Laboratory Tests 11/22/16 04:51 Red Blood Count 2.90 L, Mean Corpuscular Volume 89.3, Mean Corpuscular Hemoglobin 27.5, Mean Corpuscular Hemoglobin Concent 30.8 L, Red Cell Distribution Width 14.2, Neutrophils (%) (Auto) 59.8, Lymphocytes (%) (Auto) 25.1, Monocytes (%) (Auto) 7.2 H, Eosinophils (%) (Auto) 4.8 H, Basophils (%) ( Auto) 0.8, Neutrophils # (Auto) 3.4, Lymphocytes # (Auto) 1.4 L, Monocytes # ( Auto) 0.4, Eosinophils # (Auto) 0.3, Basophils # (Auto) 0.0, Calcium Level 7.6 L , Aspartate Amino Transf (AST/SGOT) 14 L, Alanine Aminotransferase (ALT/SGPT) 16 , Alkaline Phosphatase 136 H, Total Bilirubin 0.1 L, Total Protein 6.5, Albumin 2.4 L GME ATTESTATION GME ATTESTATION My preceptor for this patient encounter was physically present in the building during the encounter and was fully available. As needed, all aspects of the patient interview, examination, medical decision making process, and medical care plan development were reviewed and approved by the preceptor. Preceptor is aware and concurs with the plan as stated in the body of this note and will attest to such by his/her cosignature. ATTENDING NOTE I, Pj Rosales, have both independently examined this patient as well as reviewed the documentation. I have discussed in detail with the resident the findings and plan of treatment as documented in the residents documentation. I will continue to follow the patient and offer further guidance to the patients care as necessary during this hospital stay. STACIA HORTA November 22, 2016 11:47 PJ ROSALES MD December 03, 2016 14:17
[2016-11-22] MEDS ORDERED: SOD POLYSTYRENE SULFONATE SUSP 15 GM/60 ML UD PO ONE (17:45)
[2016-11-22] MEDS: PIPERACILLIN/TAZOBACTAM SOD 2.25 GM in D5W MINI-BAG PLUS 50 ML IV SCH (18:56)
[2016-11-22] MEDS ORDERED: SODIUM CHLORIDE 0.9% INJ 10 ML SYR IV PRN (19:30)
[2016-11-22] MEDS ORDERED: metOLazone 2.5 MG TAB PO ONE (19:30)
[2016-11-22] MEDS ORDERED: SLF 3 ML SYR IV PRN (19:30)
--- NOTE | 2016-11-22 20:50 | ECHO ---
DATE OF PROCEDURE: 11/22/2016 DATE OF : 1945 AGE: 71 REFERRING PROVIDER: Dr. Pj Rosales PRIMARY IN FILE OPERATOR: Dr. Abhijit Mcpherson PATIENT LOCATION: Room 3205 REASON FOR THE ECHOCARDIOGRAM: Shortness of breath. 2D MEASUREMENTS: IVS: 1.6 cm LV: 5.5 cm LVPW: 1.4 cm LA: 4.7 cm Aorta: 2.8 cm IVC: 2.2 cm DOPPLER MEASUREMENT: Peak velocity across the aortic valve: 2.3 m/s Peak velocity across the LVOT: 0.84 m/s Mitral E: 1.3, Mitral A: 0.84 with a ratio of 1.5 2D COMMENTS: 1. Mildly increased left ventricular size with mild to moderately increased left ventricular wall thickness but left ventricular systolic function is moderately depressed. The estimated global left ventricular systolic ejection fraction is 30-35%. 2. Mildly enlarged left atrium. Normal right atrium and right ventricle. 3. The atrial septum appeared to be normal without evidence of defect or shunt. 4. Normal aortic root. 5. No pericardial effusion seen. 6. Mildly calcified aortic valve with normal leaflet excursion. Mildly calcified mitral annulus with normal anterior mitral valve leaflet motion. Normal tricuspid valve and pulmonic valve. The proximal pulmonary artery branches also appear to be normal. 7. The inferior vena cava was mildly enlarged, central venous pressure might be elevated. 8. Pacemaker/automatic implantable cardioverter defibrillator (AICD) wire artifact noted in the right heart chambers. DOPPLER: It detects trace aortic regurgitation, mild tricuspid regurgitation, mild pulmonic regurgitation. Pulmonary artery systolic pressure appeared to be mildly to moderately elevated. Abnormal relaxation pattern was noted across the septal and lateral mitral valve annulus consistent with a pseudonormal pattern, left ventricular end-diastolic pressure might be elevated. IMPRESSION: 1. Moderately severe global left ventricular systolic dysfunction with mildly enlarged left ventricle but preserved left ventricular wall thickness. There are some features of left ventricular diastolic dysfunction as mentioned above. 2. Aortic valve sclerosis with mild aortic stenosis but no aortic regurgitation. Could not rule out more severe aortic stenosis in view of the depressed left ventricular ejection fraction (LVEF). 3. Mitral annulus calcification with mildly enlarged left atrium and trace mitral regurgitation. 4. Mild tricuspid regurgitation. Probably moderate pulmonary hypertension. 5. Pacemaker/automatic implantable cardioverter defibrillator (AICD) wire artifacts noted in the right heart chambers.
[2016-11-22] MEDS ORDERED: LEVEMIR (INSULIN DETEMIR) 1 UNITS/0.01ML SC SCH (21:00)
[2016-11-22] MEDS ORDERED: DOXYCYCLINE HYCLATE 100 MG TAB PO SCH (21:00)
[2016-11-22] MEDS: SODIUM CHLORIDE 0.9% INJ 10 ML SYR IV SCH (21:09)
[2016-11-22] MEDS: SLF 3 ML SYR IV SCH (21:09)
[2016-11-22 22:18] LABS: BASO % 0.6 % (0.0-1.0); EOS # 0.1 K/mm3 (0.0-0.50); EOS % 1.9 % (0.0-3.0); LARGE UNSTAINED CELL # 0.1 K/mm3 (0.0-0.4); LARGE UNSTAINED CELL % 1.6 % (0.0-4.0); LYMPH # 1.1 K/mm3 (1.5-4.5); LYMPH % 14.6 % (24.0-44.0); MEAN CORPUSCULAR HEMOGLOBIN 28.1 pg (27.0-33.0); MEAN CORPUSCULAR HGB CONC 31.2 g/dl (32.0-36.5); MONO # 0.5 K/mm3 (0.0-0.8); MONO % 6.7 % (0.0-5.0); NEUTROPHILS # 5.4 K/mm3 (1.8-7.7); NEUTROPHILS % 74.5 % (36.0-66.0); PLATELET COUNT, AUTOMATED 211 k/mm3 (150-450); RED CELL DISTRIBUTION WIDTH 14.3 % (11.5-14.5); WHITE BLOOD COUNT 7.2 K/mm3 (4.0-10.0)
[2016-11-22 22:37] LABS: ALBUMIN 2.5 GM/DL (3.2-5.2); ALBUMIN/GLOBULIN RATIO 0.58 (1.00-1.93); BILIRUBIN,TOTAL 0.2 MG/DL (0.2-1.0); CALCIUM LEVEL 7.7 MG/DL (8.8-10.2); CREATININE FOR GFR 3.65 MG/DL (0.70-1.30); GLOMERULAR FILTRATION RATE 17.6 (>42); TOTAL PROTEIN 6.8 GM/DL (6.4-8.2)
[2016-11-22 22:39] LABS: POTASSIUM SERUM 5.9 MEQ/L (3.5-5.1)
[2016-11-22 23:08] LABS: ABG BASE EXCESS -6.6 (-2.0-2.0); ABG HCO3 20.6 MEQ/L (22.0-26.0); ABG PARTIAL PRESSURE CO2 48.5 mmHg (35.0-45.0); ABG PARTIAL PRESSURE O2 104.7 mmHg (75.0-100.0)
[2016-11-22 23:11] LABS: ABG pH (ARTERIAL) 7.245 UNITS (7.350-7.450)
[2016-11-23] VITALS (22 sets, daily range): BP systolic 110–152; BP diastolic 53–78; O2SAT 97
--- NOTE | 2016-11-23 01:38 | CR ---
DATE OF CONSULTATION: 11/22/2016 REQUESTING PHYSICIAN: Pj Rosales MD. CONSULTING PHYSICIAN: Anderson Wiseman MD. REASON FOR CONSULTATION: Management of acute kidney injury and oliguria. CHIEF COMPLAINT: Patient was admitted on 11/20/2016, with progressive shortness of breath and central chest pain. HISTORY OF PRESENT ILLNESS: Mr. Aaron Drake is a 71-year-old male with a past medical history of chronic kidney disease most likely stage III with a baseline creatinine of around 2.2, diabetes mellitus type 2, hypertension, and congestive heart failure (CHF) with multiple other comorbidities, admitted this time on 11/20/2016, with shortness of breath and central chest pain, which was pressure like. He was initially admitted with a diagnosis of congestive heart failure. He was given intravenous (IV) diuretics for CHF exacerbation. Of note, patient also had diabetic wound on the left foot. He was being treated as outpatient by reforestation worker with Bactrim. When patient was admitted, his creatinine on admission was 2.3, which kept on getting worse. His creatinine is at 3.3 today. Patient became confused, obtunded and hypotensive today. He was brought to the emergency room. Jordan catheter was placed and because of his encephalopathy and acute renal failure, nephrology service was also called on board. Patient is oliguric at this time. He has not made urine for the last 3-4 hours. Patient is also hyperkalemic with a potassium of 5.9. He himself is unable to provide any reliable history. History was obtained from patient's chart and from patient's primary medical team. PAST MEDICAL HISTORY: 1. Chronic kidney disease stage III with a baseline creatinine of around 2.2. 2. Diabetes mellitus type 2. 3. Hypertension. 4. Hyperlipidemia. 5. Chronic systolic congestive heart failure with a left ventricular (LV) ejection fraction of around 40%. 6. Coronary artery disease. 7. History of myocardial infarction (MA) in the past. 8. Peripheral vascular disease status post bilateral femoral-popliteal (fem-pop) bypass. 9. Diabetic foot ulcers. PAST SURGICAL HISTORY: 1. Status post coronary stents placement. 2. Status post coronary artery bypass graft. 3. Status post automatic implantable cardioverter-defibrillator (AICD) placement. 4. Status post bilateral femoral-popliteal bypass. ALLERGIES: Patient is allergic to TURKEY. FAMILY HISTORY: There is a significant family history of coronary artery disease and hypertension. SOCIAL HISTORY: Patient is a former smoker. He quit about 4 years ago. There is no history of alcohol abuse or recreational drug use. REVIEW OF SYSTEMS: Patient is unable to provide any reliable review of systems to me. He is very confused and obtunded at this time. PHYSICAL EXAMINATION: General: Patient is awake, alert, oriented times two lying in bed. Follows some commands. Vital signs: Temperature is 96.8 degrees Fahrenheit. Blood pressure is 116/56. Pulse is 54, respiratory rate of 14, saturating 98% on nasal cannula at 2 liters. Intake and output: Urine output recorded as 600 mL yesterday, 1 liter so far today. He is 880 mL negative so far since overnight. Weight on the bed scale is not available. Head and neck exam: Extraocular muscles intact. Pupils equally round and reactive to light. Mucous membranes are slightly dry. Neck is supple. There is mildly elevated jugular venous distention (JVD) at this time. Cardiovascular: S1, S2, regular rate. No murmur, rub or gallop. Respiratory: Decreased breath sounds at the bases. Otherwise, no rales or rhonchi. Abdomen: Soft, distended, positive bowel sounds, nontender. No ascites. No organomegaly. Patient has an indwelling Jordan catheter and there is no urine in the bag at this time. Extremities: Patient has trace edema of the bilateral lower extremities. He has dressing on the bilateral feet and as reported by nursing staff, patient has a wound on the left foot. Central nervous system: Patient has positive asterixis. He is oriented times two. Otherwise, he is able to move his extremities and follow commands. Skin: No rashes. Ulcers on the feet as mentioned above. Psychiatric: Patient is confused and obtunded at this time. LABORATORY REVIEW: CBC showed a WBC of 7.2, hemoglobin 9.9, platelets are 211. ABG showed a pH of 7.31, pCO2 44, pO2 89, bicarbonate is 21.9, oxygen saturation is 97%. BMP showed sodium 136, potassium 5.9, chloride 106, bicarbonate 22, BUN 62, creatinine 3.3, GFR is 19.6, calcium 8, albumin 2.4. IMAGING: A renal ultrasound is done. Official report is pending. Chest x-ray done today in the afternoon showed cardiomegaly with left atrial and ventricular enlargement and retrocardiac left lower lobe atelectasis or infiltrate with effusion. CURRENT MEDICATIONS: Patient's medications were all reviewed by me. He got a dose of calcium gluconate IV. I have started him on Zosyn 2.25 grams IV every 8 hours. He is on Tylenol as needed. He is on Proventil as needed. Vitamin C was stopped. He is on aspirin 325 mg by mouth daily. He is on Dulcolax as needed. Coreg was stopped because of hypotension. He is on Plavix 75 mg by mouth daily. He has been started on doxycycline 100 mg by mouth twice a day. He is on ferrous sulfate 325 mg by mouth daily. He was on Lasix, which was stopped by me. Insulin Levemir has also been stopped. He is on omeprazole 40 mg by mouth daily, Zofran as needed, Percocet as needed. I have stopped the Lyrica. He was given a dose of Kayexalate 15 grams by mouth times one dose. I have stopped Carafate because of acute renal failure and patient was on Bactrim one tablet by mouth twice a day since admission and I have stopped the Bactrim as well. ASSESSMENT: 71-year-old male with past medical history of diabetes, chronic kidney disease (CKD) III, congestive heart failure, and left diabetic foot ulcer, admitted this time because of acute decompensated congestive heart failure. Nephrology service following the patient for acute renal failure. PLAN: 1. Acute kidney injury superimposed on chronic kidney disease stage III. It is most likely secondary to a combination of use of Bactrim, high-dose diuretic, also possible intravascular volume depletion. Patient got central line placed today. His CVP is reading as 22, but patient just got 2 units of packed red blood cells (PRBCs) transfusion as well. I have stopped the intravenous (IV) diuretics at this time. Patient is in oliguric acute renal failure. I have stopped Bactrim as well. I will wait for patient's renal function to improve. There is no urgent need to do hemodialysis at this time. I would monitor the patient every day for any need to start renal replacement therapy. 2. Hyperkalemia. Hyperkalemia is secondary to acute renal failure. Potassium is 5.9 at this time. Patient was already given a dose of Kayexalate. Repeat basic metabolic panel (BMP) level is pending. 3. Hypotension. It might be secondary to sepsis, use of beta blockers, antihypertensives. The patient already got a dose of normal saline bolus. He also got 2 units of PRBC transfusion. His blood pressure is acceptable at this time. Hold antihypertensive medications at this time. 4. Hypocalcemia. Patient was already given a dose of calcium gluconate 1 gram IV. Repeat ionized calcium level in the morning. 5. Metabolic encephalopathy. It is multifactorial, may be associated with hypoglycemia, use of pain medications, Lyrica, hypotension, acute renal failure. Patient's ammonia level is normal at this time. CT scan of the head is negative. I have stopped most of the medications that can cause encephalopathy. Monitor the patient in the intensive care unit (ICU) at this time. Patient's BUN level is only 62. I do not believe his encephalopathy is being caused by uremia at this time. I will continue to monitor the patient for any need to start hemodialysis. 6. Congestive heart failure. Patient's CVP was 22 after insertion of central line; however, I would not diurese the patient at this time in acute kidney injury. He is oliguric. He would probably not respond to diuretics. I have held the diuretics at this time. No need of IV fluid administration at this time. Patient would only be given diuretics after he starts making urine. If you are not able to manage his volume, then patient will likely need hemodialysis. Thank you for involving us in the care of this patient. We shall be happy to follow the patient along with you tomorrow morning. Plan of care was discussed with the hospitalist team, Dr. Pj Rosales.
[2016-11-23] MEDS: PIPERACILLIN/TAZOBACTAM SOD 2.25 GM in D5W MINI-BAG PLUS 50 ML IV SCH (01:53)
[2016-11-23 03:01] LABS: ABG BASE EXCESS -5.3 (-2.0-2.0); ABG HCO3 21.9 MEQ/L (22.0-26.0); ABG PARTIAL PRESSURE CO2 50.4 mmHg (35.0-45.0); ABG PARTIAL PRESSURE O2 97.2 mmHg (75.0-100.0); ABG STANDARD HCO3 20.1 MEQ/L (22.0-26.0); ABG TOTAL CO2 23.4 MEQ/L (23.0-31.0); ABG pH (ARTERIAL) 7.255 UNITS (7.350-7.450)
[2016-11-23] MEDS: DEXTROSE 50% 50 ML SYRINGE IV PRN ×6 (05:16→21:07)
[2016-11-23] MEDS: SODIUM CHLORIDE 0.9% INJ 10 ML SYR IV SCH ×3 (06:26→21:15)
[2016-11-23] MEDS: SLF 3 ML SYR IV SCH ×3 (06:26→21:15)
[2016-11-23 06:30] LABS: BASO % 0.5 % (0.0-1.0); EOS # 0.2 K/mm3 (0.0-0.50); EOS % 2.8 % (0.0-3.0); LARGE UNSTAINED CELL # 0.1 K/mm3 (0.0-0.4); LARGE UNSTAINED CELL % 1.6 % (0.0-4.0); LYMPH # 1.1 K/mm3 (1.5-4.5); LYMPH % 11.6 % (24.0-44.0); MEAN CORPUSCULAR HEMOGLOBIN 28.2 pg (27.0-33.0); MEAN CORPUSCULAR VOLUME 88.1 fl (80.0-96.0); MONO # 0.7 K/mm3 (0.0-0.8); NEUTROPHILS # 6.1 K/mm3 (1.8-7.7); NEUTROPHILS % 74.5 % (36.0-66.0); PLATELET COUNT, AUTOMATED 209 k/mm3 (150-450); RED CELL DISTRIBUTION WIDTH 14.5 % (11.5-14.5); WHITE BLOOD COUNT 8.2 K/mm3 (4.0-10.0)
[2016-11-23 06:45] LABS: ALBUMIN 2.4 GM/DL (3.2-5.2); ALBUMIN/GLOBULIN RATIO 0.56 (1.00-1.93); BILIRUBIN,TOTAL 0.1 MG/DL (0.2-1.0); CALCIUM LEVEL 7.9 MG/DL (8.8-10.2); CREATININE FOR GFR 3.82 MG/DL (0.70-1.30); GLOMERULAR FILTRATION RATE 16.7 (>42); MAGNESIUM LEVEL 2.4 MG/DL (1.8-2.4); TOTAL PROTEIN 6.7 GM/DL (6.4-8.2)
[2016-11-23 06:47] LABS: POTASSIUM SERUM 5.4 MEQ/L (3.5-5.1)
--- NOTE | 2016-11-23 07:16 | REP ---
PORTABLE CHEST: AP portable view of the chest is performed and compared to prior study of the same day. There is cardiomegaly and vascular congestion with bibasilar infiltrates and effusions, unchanged. There has been placement of a right central venous catheter with the tip in the superior vena cava. There is no pneumothorax. IMPRESSION: Placement of right central venous catheter with tip in the superior vena cava. No pneumothorax. Otherwise stable. Signed by Adam Otero MD 11/23/2016 07:43 P
--- NOTE | 2016-11-23 07:28 | REP ---
RENAL ULTRASOUND: Real-time sonographic evaluation of the kidneys performed. Right kidney is echogenic suggesting medical renal disease. Left kidney appears relatively normal in echotexture. Right kidney measures 10.3 x 4.8 x 4.8 cm and left kidney 12.0 x 5.9 x 4.9 cm. There is no hydronephrosis bilaterally. There is a cyst in the upper pole of the left kidney measuring 2.1 x 1.9 x 1.4 cm. IMPRESSION: No hydronephrosis. Echogenic appearance of the right kidney suggests medical renal disease. Left renal cyst. Signed by Adam Otero MD 11/23/2016 07:44 P
[2016-11-23] MEDS ORDERED: SOD POLYSTYRENE SULFONATE SUSP 15 GM/60 ML UD PO ONE (07:30)
[2016-11-23] MEDS: HumaLOG INSULIN (NovoLOG) PER UNIT SC SCH ×4 (07:30→21:00)
--- NOTE | 2016-11-23 07:30 | RO ---
DATE OF PROCEDURE: 11/22/2016 PREOPERATIVE DIAGNOSES: Poor venous access. Congestive heart failure. POSTOPERATIVE DIAGNOSES: Poor venous access. Congestive heart failure. Anuric. PROCEDURE: Right internal jugular (IJ) triple lumen central line. SURGEON: Dr. Karishma Howell LION TAMER: Dr. Pj Rosales and Dr. Perez ANESTHESIA: Local 1% lidocaine. SEDATION: None. VENTILATION: 45% Ventimask. ESTIMATED BLOOD LOSS: 15 mL. The patient was placed in supine position and cleaned with ChloraPrep and prepped in the usual manner. Ultrasound with sterile probe was used to locate the right internal jugular and 1% lidocaine was injected with ultrasound guidance. Subsequently, needle was inserted and flash of blood was obtained. Subsequently a wire was advanced through the needle and needle was removed. The wire position was confirmed with ultrasound. Subsequently the site was dilated and a triple lumen central line was placed with Seldinger technique. The wire was removed. All three ports were flushed. The port was secured with clamp and stitches. Dressing was placed. X-ray was ordered for confirmation. The patient tolerated the procedure with no complication. ARABELLA
[2016-11-23] MEDS ORDERED: SOD POLYSTYRENE SULFONATE SUSP 30 GM/120 ML ENEMA PR ONE (07:45)
[2016-11-23] MEDS ORDERED: DEXTROSE 50% 50 ML VIAL IV ONE (07:45)
[2016-11-23] MEDS: SILVER SULFADIAZINE 1% CR 50 GM JAR TOP SCH (07:48)
[2016-11-23 08:28] LABS: ABG BASE EXCESS -5.5 (-2.0-2.0); ABG HCO3 21.7 MEQ/L (22.0-26.0); ABG PARTIAL PRESSURE CO2 50.5 mmHg (35.0-45.0); ABG PARTIAL PRESSURE O2 116.7 mmHg (75.0-100.0); ABG TOTAL CO2 23.3 MEQ/L (23.0-31.0); ABG pH (ARTERIAL) 7.252 UNITS (7.350-7.450)
[2016-11-23] MEDS: ASPIRIN 325 MG TAB PO SCH (08:37)
[2016-11-23] MEDS: OMEPRAZOLE 20 MG CAP PO SCH (08:38)
[2016-11-23] MEDS: CLOPIDOGREL 75 MG TAB PO SCH (08:38)
[2016-11-23] MEDS: FERROUS SULFATE 325MG TAB PO SCH (08:38)
--- NOTE | 2016-11-23 08:44 | IPNPDOC ---
Date Seen The patient was seen on 11/23/16. Progress Note SUBJECTIVE: Mr. Drake is a 71-year-old male evaluated bedside this morning. He is encephalopathic. His eyes are open and he is alert, however he is not responsive nor does he follow commands. OBJECTIVE PHYSICAL EXAMINATION: VITAL SIGNS: Please see below. GENERAL: Well-nourished, well-developed male lying on his left side to evaluation this morning, alert, but not responsive, not oriented HEENT: Atraumatic, normocephalic, pupils minimally responsive, edentulous CARDIOVASCULAR: Regular rate and rhythm, normal S1 and S2, no murmur, rub, click RESPIRATORY: Crackles appreciated in the right middle and lower lobes ABDOMINAL: Involuntary guarding throughout, tender to palpation EXTREMITIES: Peripheral pulses appreciated bilaterally in upper and lower extremities, feet are bandaged with wet-to-dry dressings secondary to wound ulcers NEUROLOGICAL: Encephalopathic PSYCHOLOGICAL: Encephalopathic LABORATORY DATA: Please see below. MICROBIOLOGY: Please see below. IMAGING: Chest x-ray Placement of right femoral catheter with tip in the superior vena cava. No pneumothorax. Otherwise stable. Echocardiogram: IMPRESSION: 1. Moderately severe global left ventricular systolic dysfunction with mildly enlarged left ventricle but preserved left ventricular wall thickness. There are some features of left ventricular diastolic dysfunction as mentioned above. 2. Aortic valve sclerosis with mild aortic stenosis but no aortic regurgitation. Could not rule out more severe aortic stenosis in view of the depressed left ventricular ejection fraction (LVEF). 3. Mitral annulus calcification with mildly enlarged left atrium and trace mitral regurgitation. 4. Mild tricuspid regurgitation. Probably moderate pulmonary hypertension. 5. Pacemaker/automatic implantable cardioverter defibrillator (AICD) wire artifacts noted in the right heart chambers. DVT prophylaxis ordered?: Plavix 75 mg daily ASSESSMENT AND PLAN: Mr. Darke is a 71-year-old male who presents with acute on chronic systolic congestive heart failure with progression to metabolic encephalopathy and acute renal failure superimposed on chronic kidney disease. Etiology still being determined. PROBLEMS: 1. Metabolic encephalopathy: Likely multifactorial, including cardiorenal syndrome, electrolyte abnormalities such as hypomagnesemia or hypocalcemia, hypoglycemia. Echocardiogram reports worsening left ventricular ejection fraction (30-35%). Aspiration precautions. Right IJ in place. 2. Acute kidney injury superimposed on chronic kidney disease: Considering prerenal, intrinsic, or postrenal causes. Consult nephrology. Creatinine has worsened. Renal ultrasound was negative. Patient was initially oliguric, but produced minimal urine over the last 24 hours. Urinary catheter in place for critical monitoring. Nephrotoxins have been held. Obtaining XOCHILT, C3, C4 to evaluate for glomerulonephritis and urine creatinine, urine sodium to evaluate for renal tubular acidosis. Continue monitoring with labs. 3. Hyperkalemia: Causes include metabolic acidosis, acute renal failure. Given another dose of Kayexalate. Obtain EKG. 4. Acute hypoxic respiratory failure: Likely multifactorial, including acute exacerbation of chronic systolic congestive heart failure pushing patient into acute pulmonary edema. Ordered oxygen with orders to remain between 88-92%. Continue Lasix 60 mg every 8 hours. ABG was normal. 5. Hypoglycemia: Discontinued basal insulin. Managed with sliding scale and adjustments made to hypoglycemic protocol. Fingerstick blood glucoses every 1 hour. 6. Abnormal urinalysis: Likely related to traumatic Jordan insertion. Continue critical monitoring. 7. Bradycardia: Normal sinus rhythm. Obtaining EKG. 8. Hypotension: Appears improved. 9. Anemia: Received 2 units of packed red blood cells. H&H appears improved. Awaiting the stool for occult blood. Anemia likely secondary to chronic disease. No active bleeding at this time. Ferrous sulfate 325 mg by mouth. 10. Chronic cholecystitis: Likely that no intervention will be planned at this time. 11. Bilateral lower extremity wound ulcers: Continue with Silvadene to wounds on forefeet and wet-to-dry dressings for bilateral heels. Discontinued Bactrim secondary to being nephrotoxic agent. Transitioned to Zosyn and doxycycline. Patient received ten-day course of antibiotics and thus all antibiotics have been discontinued at this time. Continue to dress wounds daily. 12. Coronary artery disease: Continue with aspirin and Plavix. 13. Gastric esophageal reflux disease: Continue with Prilosec and Carafate. 14. Neuropathy. Discontinued Lyrica secondary to being nephrotoxic agent. DISPOSITION: Admitted to the ICU. Cardiology and nephrology consult. Prognosis guarded at this time. CODE STATUS DNR/DNI. VS, I&O, 24H, Fishbone Vital Signs/I&O Vital Signs Date Time Temp Pulse Resp B/P (MAP) Pulse Ox O2 Delivery O2 Flow Rate FiO2 11/23/16 06:00 72 22 130/58 (82) 99 Nasal Cannula 2.0 11/23/16 04:00 98.9 11/22/16 08:00 100 I&O- Last 24 Hours up to 6 AM 11/23/16 06:00 Intake Total 815 ml Output Total 716 ml Balance 99 ml Laboratory Data 24H LABS Laboratory Tests 2 11/22/16 08:28: Bedside Glucose (Misc Panel) 151H 11/22/16 08:59: Bedside Glucose (Misc Panel) 123H 11/22/16 09:07: Blood Gas Bicarbonate Standard 21.0L, Arterial Blood pH 7.312L, Arterial Blood Partial Pressure CO2 44.2, Arterial Blood Partial Pressure O2 89.8, Arterial Blood Total CO2 23.2, Arterial Blood HCO3 21.9L, Arterial Blood Base Excess - 4.2L, Arterial Blood Oxygen Saturation 97.1, Arterial Blood Gas Puncture Site RT RADIAL 11/22/16 10:32: Lactic Acid Level 0.8, Phosphorus Level 6.6H, Total Creatine Kinase 89, Creatine Kinase MB 6.5H, Creatine Kinase MB Relative Index 7.30H, Troponin I 0.02#, Vitamin B12 Level 618, Folate 5.3L 11/22/16 11:58: Bedside Glucose (Misc Panel) 96 11/22/16 13:00: Ammonia 20, Lipase 119, Parathyroid Hormone (Intact) 146.7H 11/22/16 13:15: Bedside Glucose (Misc Panel) 114H 11/22/16 13:38: 11/22/16 13:51: Bedside Glucose (Misc Panel) 159H 11/22/16 13:58: Bedside Glucose (Misc Panel) 213H 11/22/16 14:42: Whole Blood Ionized Calcium 4.4L 11/22/16 14:43: Anion Gap 8, Glomerular Filtration Rate 19.6L, Blood Urea Nitrogen 62H, Creatinine 3.33H, Sodium Level 136, Potassium Level 5.9H, Chloride Level 106, Carbon Dioxide Level 22, Calcium Level 8.0L, Aspartate Amino Transf (AST/SGOT) 10L, Alanine Aminotransferase (ALT/SGPT) 18, Alkaline Phosphatase 128H, Total Bilirubin < 0.1L, Total Protein 6.8, Albumin 2.4L, Albumin/Globulin Ratio 0.55L 11/22/16 14:50: Bedside Glucose (Misc Panel) 85 11/22/16 17:29: Bedside Glucose (Misc Panel) 61L 11/22/16 17:49: Total Creatine Kinase 88, Creatine Kinase MB 5.9H, Creatine Kinase MB Relative Index 6.70H, Troponin I 0.03# 11/22/16 18:04: Bedside Glucose (Misc Panel) 85 11/22/16 20:37: Bedside Glucose (Misc Panel) 89 11/22/16 21:23: Bedside Glucose (Misc Panel) 86 11/22/16 22:04: White Blood Count 7.2, Red Blood Count 3.53L, Hemoglobin 9.9L, Hematocrit 31.8L , Mean Corpuscular Volume 90.0, Mean Corpuscular Hemoglobin 28.1, Mean Corpuscular Hemoglobin Concent 31.2L, Red Cell Distribution Width 14.3, Platelet Count 211, Neutrophils (%) (Auto) 74.5H, Lymphocytes (%) (Auto) 14.6L, Monocytes (%) (Auto) 6.7H, Eosinophils (%) (Auto) 1.9, Basophils (%) (Auto) 0.6 , Neutrophils # (Auto) 5.4, Lymphocytes # (Auto) 1.1L, Monocytes # (Auto) 0.5, Eosinophils # (Auto) 0.1, Basophils # (Auto) 0.0, Large Unclassified Cells % 1.6 , Large Unclassified Cells # 0.1, Anion Gap 7L, Glomerular Filtration Rate 17.6L , Blood Urea Nitrogen 63H, Creatinine 3.65H, Sodium Level 137, Potassium Level 5.9H, Chloride Level 105, Carbon Dioxide Level 25, Calcium Level 7.7L, Aspartate Amino Transf (AST/SGOT) 12L, Alanine Aminotransferase (ALT/SGPT) 17, Alkaline Phosphatase 134H, Total Bilirubin 0.2#, Total Protein 6.8, Albumin 2.5L , Albumin/Globulin Ratio 0.58L 11/22/16 22:51: Blood Gas Bicarbonate Standard 19.0L, Arterial Blood pH 7.245*L, Arterial Blood Partial Pressure CO2 48.5H, Arterial Blood Partial Pressure O2 104.7H, Arterial Blood Total CO2 22.0L, Arterial Blood HCO3 20.6L, Arterial Blood Base Excess - 6.6L, Arterial Blood Oxygen Saturation 98.0 11/22/16 23:28: Bedside Glucose (Misc Panel) 78L 11/23/16 01:48: Bedside Glucose (Misc Panel) 77L 11/23/16 02:00: Urine Appearance CLOUDYH, Urine Color YELLOW, Urine pH 5.0, Urine Specific Post 1.014, Urine Protein 2+H, Urine Glucose (UA) NEGATIVE, Urine Ketones NEGATIVE, Urine Urobilinogen 0.2, Urine Bilirubin NEGATIVE, Urine Leukocyte Esterase NEGATIVE, Urine Blood 3+H, Urine Nitrite NEGATIVE, Urine WBC (Auto) 8H , Urine RBC (Auto) TNTCH, Urine Hyaline Casts (Auto) 0, Urine Bacteria (Auto) NEGATIVE, Urine Squamous Epithelial Cells 0, Urine Amorphous Sediment SMALLH, Urine Mucus (Auto) SMALL, Urine Sperm (Auto) 11/23/16 02:48: Blood Gas Bicarbonate Standard 20.1L, Arterial Blood pH 7.255L, Arterial Blood Partial Pressure CO2 50.4H, Arterial Blood Partial Pressure O2 97.2, Arterial Blood Total CO2 23.4, Arterial Blood HCO3 21.9L, Arterial Blood Base Excess - 5.3L, Arterial Blood Oxygen Saturation 97.5 11/23/16 02:53: Bedside Glucose (Misc Panel) 73L 11/23/16 04:01: Bedside Glucose (Misc Panel) 74L 11/23/16 05:07: Bedside Glucose (Misc Panel) 64L 11/23/16 06:14: Bedside Glucose (Misc Panel) 118H 11/23/16 06:15: White Blood Count 8.2, Red Blood Count 3.38L, Hemoglobin 9.5L, Hematocrit 29.8L , Mean Corpuscular Volume 88.1, Mean Corpuscular Hemoglobin 28.2, Mean Corpuscular Hemoglobin Concent 32.0, Red Cell Distribution Width 14.5, Platelet Count 209, Neutrophils (%) (Auto) 74.5H, Lymphocytes (%) (Auto) 11.6L, Monocytes (%) (Auto) 9.0H, Eosinophils (%) (Auto) 2.8, Basophils (%) (Auto) 0.5 , Neutrophils # (Auto) 6.1, Lymphocytes # (Auto) 1.1L, Monocytes # (Auto) 0.7, Eosinophils # (Auto) 0.2, Basophils # (Auto) 0.0, Large Unclassified Cells % 1.6 , Large Unclassified Cells # 0.1, Anion Gap 10, Glomerular Filtration Rate 16.7L , Blood Urea Nitrogen 65H, Creatinine 3.82H, Sodium Level 139, Potassium Level 5.4H, Chloride Level 105, Carbon Dioxide Level 24, Calcium Level 7.9L, Aspartate Amino Transf (AST/SGOT) 19, Alanine Aminotransferase (ALT/SGPT) 16, Alkaline Phosphatase 129H, Total Bilirubin 0.1L, Total Protein 6.7, Albumin 2.4L , Magnesium Level 2.4, Albumin/Globulin Ratio 0.56L 11/23/16 07:44: Bedside Glucose (Misc Panel) 100 CBC/BMP Laboratory Tests 11/22/16 14:43 Calcium Level 8.0 L, Aspartate Amino Transf (AST/SGOT) 10 L, Alanine Aminotransferase (ALT/SGPT) 18, Alkaline Phosphatase 128 H, Total Bilirubin < 0.1 L, Total Protein 6.8, Albumin 2.4 L 11/22/16 22:04 Calcium Level 7.7 L, Aspartate Amino Transf (AST/SGOT) 12 L, Alanine Aminotransferase (ALT/SGPT) 17, Alkaline Phosphatase 134 H, Total Bilirubin 0.2 #, Total Protein 6.8, Albumin 2.5 L, Red Blood Count 3.53 L, Mean Corpuscular Volume 90.0, Mean Corpuscular Hemoglobin 28.1, Mean Corpuscular Hemoglobin Concent 31.2 L, Red Cell Distribution Width 14.3, Neutrophils (%) (Auto) 74.5 H , Lymphocytes (%) (Auto) 14.6 L, Monocytes (%) (Auto) 6.7 H, Eosinophils (%) ( Auto) 1.9, Basophils (%) (Auto) 0.6, Neutrophils # (Auto) 5.4, Lymphocytes # ( Auto) 1.1 L, Monocytes # (Auto) 0.5, Eosinophils # (Auto) 0.1, Basophils # (Auto ) 0.0 11/23/16 06:15 Calcium Level 7.9 L, Aspartate Amino Transf (AST/SGOT) 19, Alanine Aminotransferase (ALT/SGPT) 16, Alkaline Phosphatase 129 H, Total Bilirubin 0.1 L, Total Protein 6.7, Albumin 2.4 L, Red Blood Count 3.38 L, Mean Corpuscular Volume 88.1, Mean Corpuscular Hemoglobin 28.2, Mean Corpuscular Hemoglobin Concent 32.0, Red Cell Distribution Width 14.5, Neutrophils (%) (Auto) 74.5 H, Lymphocytes (%) (Auto) 11.6 L, Monocytes (%) (Auto) 9.0 H, Eosinophils (%) (Auto ) 2.8, Basophils (%) (Auto) 0.5, Neutrophils # (Auto) 6.1, Lymphocytes # (Auto) 1.1 L, Monocytes # (Auto) 0.7, Eosinophils # (Auto) 0.2, Basophils # (Auto) 0.0 GME ATTESTATION GME ATTESTATION My preceptor for this patient encounter was physically present in the building during the encounter and was fully available. As needed, all aspects of the patient interview, examination, medical decision making process, and medical care plan development were reviewed and approved by the preceptor. Preceptor is aware and concurs with the plan as stated in the body of this note and will attest to such by his/her cosignature. ATTENDING NOTE I, Pj Rosales, have both independently examined this patient as well as reviewed the documentation. I have discussed in detail with the resident the findings and plan of treatment as documented in the residents documentation. I will continue to follow the patient and offer further guidance to the patients care as necessary during this hospital stay. STACIA HORTA November 23, 2016 08:44 PJ ROSALES MD December 03, 2016 14:17
[2016-11-23 09:32] LABS: COMPLEMENT C4 36.9 MG/DL (10-40)
--- NOTE | 2016-11-23 10:34 | REP ---
PORTABLE CHEST: AP portable view of the chest is performed and compared to prior study of 11/22/2016. There is cardiomegaly and vascular congestion with diffuse interstitial edema essentially unchanged. Dense infiltrate or atelectasis is seen in the left retrocardiac region inferiorly. There may be small effusions as well. Right central venous catheter is seen with the tip at the junction of the superior vena cava and right atrium. Left pacemaker is again noted as well as multiple sternal wires. IMPRESSION: Cardiomegaly with CHF and interstitial edema, unchanged. There is dense atelectasis or infiltrate in the left lung base. I cannot exclude small effusions. Signed by Adam Otero MD 11/23/2016 07:45 P
[2016-11-23] MEDS ORDERED: GLUCAGON FOR INJ 1 MG VIAL (J1610) SC STA (11:41)
[2016-11-23] MEDS: CEFTAROLINE FOSAMIL 300 MG in D5W 50 ML IV SCH (16:40)
--- NOTE | 2016-11-23 17:11 | ECGEPIP ---
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 ST DEVIATION AND MODERATE T-WAVE ABNORMALITY, CONSIDER ANTEROLATERAL ISCHEMIA Decreased heart rate compared with 11/21/2016. Electronically Signed On 11-23-2016 17:10:34 EDT by Matthew Winchester
--- NOTE | 2016-11-23 17:22 | ECGEPIP ---
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 Electronically Signed On 11-23-2016 17:22:07 EDT by Matthew Winchester
--- NOTE | 2016-11-23 18:49 | ECGEPIP ---
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 Poor R-wave progression. MODERATE T-WAVE ABNORMALITY, CONSIDER LATERAL ISCHEMIA No significant change compared with 11/22/2016 at 2226. Electronically Signed On 11-23-2016 18:48:37 EDT by Matthew Winchester
--- NOTE | 2016-11-23 22:48 | CR ---
DATE OF CONSULTATION: 11/23/2016 REFERRING PROVIDER: Dr. Neri. REASON FOR CONSULTATION: Bradycardia. HISTORY OF PRESENT ILLNESS: A 71-year-old male well known by the office, and he usually sees Dr. Mcpherson. He came to the emergency room (ER) for further evaluation because he was having a two-day history of agitation and increasing shortness of breath. He was admitted with congestive heart failure, worsening renal failure, anemia. This morning, he was unresponsive, and he was found to be hypoglycemic. Further workup revealed findings consistent with worsening congestive heart failure, worsening renal failure and anemia. During the day, he also was bradycardic and cardiology consult was called. Case was discussed earlier in the day with his hospitalist and the carvedilol was discontinued. When I saw Mr. Aaron Drake in the intensive care unit (ICU)/progressive care unit (PCU), he was lying supine in bed in no acute distress at rest, and his daughter was at bedside, as well as one of his granddaughters. There is no report of chest pain, palpitations. There is no focal manifestation. He was eating and was asking for food because he was hungry at that time. There is no report of fever or chills. There is no report of bleeding. He has no nausea, vomiting, diarrhea, melena or hematemesis. 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 There is no history of atrial fibrillation, cerebrovascular accident (CVA), sudden cardiac . Past surgical history is positive for coronary artery bypass graft, bilateral femoral-popliteal artery bypass, history of percutaneous transluminal angioplasty ([employer] OF REVENUE [employer]NAGEMENT) in the lower extremities, AICD implantation. Family history is positive for heart disease, hypertension. SOCIAL HISTORY: The patient lives by himself, but he has good support in the area, his daughter, who is very supportive. He does not smoke; he quit about four years ago. There no report of ethyl alcohol (EtOH) abuse or illicit drugs. ALLERGIES: [place]. ADVANCE DIRECTIVES: The patient has a DO NOT RESUSCITATE and DO NOT INTUBATE order. CURRENT MEDICATIONS: - doxycycline 100 mg by mouth twice a day - piperacillin 2.25 grams intravenous (IV) every eight hours - ferrous sulfate 325 mg by mouth daily - Senokot one tablet by mouth daily as needed for constipation - Dulcolax 10 mg by mouth daily as needed for constipation - aspirin 325 mg by mouth daily - Plavix 75 mg by mouth daily - omeprazole 40 mg by mouth daily - Silvadene 1% cream applied daily to the affected area - regular insulin coverage - Tylenol 650 mg every four hours as needed for mild pain or fever - Zofran 4 mg by mouth for nausea or vomiting every six hours as needed - Zofran 4 mg IV every six hours as needed for nausea or vomiting - D50 as well as glucose tablet and glucagon for hypoglycemia - Proventil nebulizer four times a day as needed for shortness of breath - metoclopramide 10 mg as needed before meals - Percocet 5/325 mg tablet, two tablets every eight hours as needed for pain PHYSICAL EXAMINATION: GENERAL: The patient is alert and awake, in no acute distress at rest. VITAL SIGNS: His vital signs when I saw him revealed a blood pressure of 135/60 with a pulse of 57, respirations 16, and his temperature was 97.9 degrees Fahrenheit with oxygen saturation of 96% on two liters nasal cannula. HEENT: Atraumatic. NECK: Supple. I could not appreciate any jugular venous distention (JVD). LUNGS: Reveal minimal crackles at the bases, but no wheezing. CARDIAC: The heart examination revealed normal S1, S2, without gallops. The point of maximum impulse (PMI) is displaced inferiorly and laterally. There is no rub. There is a systolic murmur grade 1-2 over six at the lower left sternal border and at the apex with some radiation to the axilla. ABDOMEN: Soft and nontender. EXTREMITIES: Reveal +1 bilateral lower leg edema. NEUROLOGIC: Examination is negative for focal deficit. LABORATORY DATA: CBC done on 11/22/2016, revealed a WBC of 7.2, hemoglobin 9.7, hematocrit 31.8, platelets 211. In the morning, seen on 11/22/2016, hemoglobin and hematocrit were 8.0 and 25.9 respectively. BMP revealed a sodium of 137, potassium 5.9, and chloride 105, CO2 25, BUN 63, creatinine 3.65, GFR 17.6, fasting glucose 79, calcium 7.6. Liver enzymes revealed a total bilirubin of 0.2, AST 12, ALT 17, alkaline phosphatase 134. Total protein 6.8, and albumin 2.5. Troponin is 0.03 and 0.02. TSH on 11/20/2016, was 5.63. Serum BNP on admission was 1560. IMAGING: Chest x-ray on admission revealed left pleural effusion and suspected interstitial pulmonary edema with cardiomegaly. Repeat chest x-ray on 11/22/2016, revealed cardiomegaly with underlying fibrosis, left pleural effusion and a small right pleural effusion. EKG on 11/21/2016, revealed normal sinus rhythm with IVCD, left atrial abnormality, and STT abnormalities noted throughout, but more pronounced in leads V4, V5, and V6. ADDENDUM: 11/23/2016, slm This was compared with EKG and no remarkable changes. There are also findings consistent with prior inferior wall infarct. IMPRESSION: 71-year-old male with multiple comorbid conditions who was admitted with acute kidney injury on chronic kidney disease, decompensated congestive heart failure (CHF) secondary to left ventricular systolic dysfunction, acute on chronic. Also, he has a history of coronary artery disease with underlying coronary artery bypass graft (CABG), severe peripheral artery disease with probably bilateral wound infections involving the feet, hypertension, hyperlipidemia, and diabetes mellitus. The patient seems to be stable and his heart rate has improved and he is currently being transfused. I am concerned that he might end up on hemodialysis this time while in the hospital and I will recommend to have nephrology manage his diuretic. In the meantime, we can hold the carvedilol and once his heart rate improves, he can be restarted at the lower dose. Once again, he can be started at a lower dose. I have noticed that he is not on a statin and his office note will be checked and further recommendations will be given. It was a pleasure to participate in the care of Mr. Aaron Drake for his cardiac condition. Once again, his prognosis from a cardiac standpoint is guarded in view of his multiple comorbid conditions and I am concerned that he might end up in hemodialysis this hospitalization. I will continue to see the patient as needed. Please do not hesitate to call if there are any questions.
[2016-11-24] VITALS (10 sets, daily range): BP systolic 135–191; BP diastolic 61–79
[2016-11-24] MEDS: DEXTROSE 50% 50 ML SYRINGE IV PRN ×2 (01:01→06:20)
[2016-11-24] MEDS: CEFTAROLINE FOSAMIL 300 MG in D5W 50 ML IV SCH ×2 (04:07→15:29)
--- NOTE | 2016-11-24 04:13 | IPN ---
DATE OF SERVICE: 11/23/2016 SUBJECTIVE: Patient was seen and examined at bedside today morning in the intensive care unit (ICU). Patient remains slightly confused at this time, but he is otherwise hemodynamically stable. Not requiring any pressors. Patient was oliguric overnight, but starting this morning he has started making urine. He is making around 50 mL of urine an hour. His renal function is almost stable as compared with yesterday. REVIEW OF SYSTEMS: Patient is unable to provide any reliable review of systems because he is confused and obtunded at this time. However, in the last 24 hours there are no fevers and chills. He denies any chest pains at this time. There is no shortness of breath. OBJECTIVE: Vital signs: Temperature is 98.7 degrees Fahrenheit. Blood pressure is 152/65. Pulse is 72. Respiratory rate of 18, saturating 93% on room air. Intake and output: Urine output recorded as 1 liter yesterday, 580 mL so far today since overnight. His hourly urine output at this time is around 50 mL an hour. PHYSICAL EXAMINATION: General: Patient is awake, alert, oriented times two lying in bed. No apparent distress. Head and neck exam: Extraocular muscles intact. Pupils equally round and reactive to light. Mucous membranes are moist. Neck is supple. There is no jugular venous distention (JVD). Patient right-sided triple lumen catheter. Cardiovascular: S1, S2, regular rate. No murmur, rub or gallop. Respiratory: Decreased breath sounds at the bases and mild crackles on deep inspiration at the bases as well. Abdomen: Soft, distended, positive bowel sounds, nontender. No ascites. No organomegaly at this time. Patient has an indwelling Jordan catheter. Extremities: No clubbing or cyanosis. Patient has trace edema of the bilateral lower extremities and he has dressing on the bilateral feet as well. Central nervous system: Patient is slightly obtunded. He is oriented times two. He does have asterixis. He is able to follow some of the commands at this time. He has waxing and waning level of consciousness. LABORATORY REVIEW: CBC showed a WBC 8.2, hemoglobin 9.5, platelets are 209. Urinalysis done today showed it was cloudy. There was 2+ protein, 3+ blood. There was no bacteria. ABG done today morning showed pH 7.25, pCO2 50, pO2 160, bicarbonate 21.7. BMP this morning showed sodium of 139, potassium 5.4, chloride 105, bicarbonate 24, BUN 65, creatinine 3.8, it was 3.6 yesterday. Calcium is 7.9, a.m. cortisol is pending. XOCHILT screen is pending. C3 and C4 levels are normal. IMAGING: A chest x-ray done today morning showed cardiomegaly with CHF and interstitial edema, which are unchanged. There is a dense atelectasis or infiltrate in the left lung base. CURRENT MEDICATIONS: Patient's medications were all reviewed by me. His Zofran has been stopped. He is not on any intravenous (IV) fluids at this time. Doxycycline has also been stopped. Patient is not on diuretics. Patient was given another dose of Kayexalate 15 grams by mouth times one dose. ASSESSMENT: 71-year-old male with past medical history of diabetes, chronic kidney disease stage III, congestive heart failure, and left diabetic foot ulcer, admitted this time because of decompensated congestive heart failure (CHF). Hospital course was complicated by altered mental status, hypotension, and acute renal failure. PLAN: 1. Acute kidney injury superimposed on chronic kidney disease stage III. Patient was oliguric yesterday; however, patient has started making urine starting this morning. He is making around 50 mL of urine an hour. Continue to monitor for improvement of renal function. No urgent need to start hemodialysis at this time. Nephrotoxic medications were already held yesterday. Most likely etiology is use of aggressive diuretics and Bactrim for left foot infection. 2. Hyperkalemia. Patient's potassium is within acceptable limits. It was 5.4 this morning. He was already given a dose of Kayexalate. Potassium level should improve with improvement in the renal function and with the dose of Kayexalate that was already given this morning. Avoid high potassium diet. 3. Congestive heart failure. Patient is making urine now. There are no signs of fluid overload at this time. I would not give any diuretics at this time. Patient started making urine right now. If needed, probably in the evening or maybe tomorrow morning, I shall start giving him small doses of diuretics. 4. Metabolic encephalopathy. It is multifactorial. Patient is on multiple pain medications, Lyrica, he was hypotensive, he has acute renal failure as well. Continue to monitor for now. Avoid use of opioid pain medications. Lyrica was already stopped yesterday. Avoid the sedatives. 5. Bilateral diabetic foot ulcers. Patient was on Bactrim, which was stopped because of renal failure. He was started on intravenous (IV) Zosyn and doxycycline, but antibiotic has been stopped by the primary team. Patient probably has finished the course of antibiotics at this time. The plan of care was discussed with the hospitalist team, Dr. Pj Rosales.
[2016-11-24 05:28] LABS: BASO % 0.7 % (0.0-1.0); EOS # 0.3 K/mm3 (0.0-0.50); EOS % 4.6 % (0.0-3.0); LARGE UNSTAINED CELL # 0.1 K/mm3 (0.0-0.4); LARGE UNSTAINED CELL % 2.1 % (0.0-4.0); LYMPH # 0.9 K/mm3 (1.5-4.5); MEAN CORPUSCULAR HEMOGLOBIN 27.8 pg (27.0-33.0); MEAN CORPUSCULAR HGB CONC 31.9 g/dl (32.0-36.5); MEAN CORPUSCULAR VOLUME 87.2 fl (80.0-96.0); MONO # 0.6 K/mm3 (0.0-0.8); MONO % 9.2 % (0.0-5.0); NEUTROPHILS # 4.2 K/mm3 (1.8-7.7); NEUTROPHILS % 70.3 % (36.0-66.0); PLATELET COUNT, AUTOMATED 180 k/mm3 (150-450); RED CELL DISTRIBUTION WIDTH 14.6 % (11.5-14.5)
[2016-11-24 05:57] LABS: ALBUMIN 1.9 GM/DL (3.2-5.2); ALBUMIN/GLOBULIN RATIO 0.54 (1.00-1.93); BILIRUBIN,TOTAL 0.2 MG/DL (0.2-1.0); CALCIUM LEVEL 6.7 MG/DL (8.8-10.2); CREATININE FOR GFR 2.76 MG/DL (0.70-1.30); GLOMERULAR FILTRATION RATE 24.3 (>42); POTASSIUM SERUM 3.9 MEQ/L (3.5-5.1); TOTAL PROTEIN 5.4 GM/DL (6.4-8.2)
[2016-11-24] MEDS: SLF 3 ML SYR IV SCH ×3 (06:00→21:17)
[2016-11-24] MEDS: SODIUM CHLORIDE 0.9% INJ 10 ML SYR IV SCH ×3 (06:00→21:17)
[2016-11-24] MEDS ORDERED: GLUCAGON FOR INJ 1 MG VIAL (J1610) SC PRN (07:30)
[2016-11-24] MEDS ORDERED: DEXTROSE 50% 50 ML SYRINGE IV PRN (07:30)
[2016-11-24] MEDS ORDERED: GLUCOSE 4 GM CHEW TABLET PO PRN (07:30)
[2016-11-24] MEDS: ASPIRIN 325 MG TAB PO SCH (08:20)
[2016-11-24] MEDS: FERROUS SULFATE 325MG TAB PO SCH (08:20)
[2016-11-24] MEDS: OMEPRAZOLE 20 MG CAP PO SCH (08:20)
[2016-11-24] MEDS: CLOPIDOGREL 75 MG TAB PO SCH (08:20)
[2016-11-24] MEDS: SILVER SULFADIAZINE 1% CR 50 GM JAR TOP SCH (08:21)
[2016-11-24] MEDS: HumaLOG INSULIN (NovoLOG) PER UNIT SC SCH ×4 (08:21→21:00)
[2016-11-24] MEDS ORDERED: amLODIPine 5 MG TAB PO SCH (09:00)
[2016-11-24] MEDS ORDERED: CALCIUM GLUCONATE 1,000 MG in D5W MINI-BAG PLUS 100 ML IV ONE (09:00)
[2016-11-24 09:27] LABS: PHOSPHORUS LEVEL 3.7 MG/DL (2.5-4.9)
--- NOTE | 2016-11-24 09:46 | REP ---
PORTABLE CHEST: AP portable view of the chest is performed and compared with prior study of 11/23/2016. Cardiomegaly and interstitial edema persist. Increasing infiltrate or pleural fluid is seen inferiorly on the right. Consolidation in the left lung base with possible underlying pleural fluid is unchanged. Multiple sternal wires are present. There is a right central venous catheter again seen as well as a left pacemaker. Signed by Adam Otero MD 11/24/2016 07:52 P
--- NOTE | 2016-11-24 10:37 | IPNPDOC ---
Text Note Date of Service The patient was seen on 11/24/16. NOTE Subjective: Patient is a 71 year old male with a PMHx of DM2, HTN, DLP, Systolic CHF, AICD, CAD s/p CABG (Hx of [place]), PVD s/p b/l FemPop, and CKD3 who presented to the ER with SOB / CP. Was found to be in acute heart failure and was admitted to telemetry. Patient was subsequently upgraded to ICU on 11/22 because of encephalopathy and acute renal failure. Patient was seen and examined at the bedside today. He was awake and alert. He denied any problems today. Objective: Vitals (See below) General: Lying in bed, no acute distress, comfortable, AAOx3 HEENT: NC, AT CVS: RRR, +S1S2 Lungs: Fair air entry b/l, no appreciable crackles Abdomen: Soft, ND, NT, +BSx4 Extremities: +PPx4, - Edema, - Calf tenderness Assessment and plan: 1. s/p Acute metabolic encephalopathy - likely 2/2 hypoglycemia, exacerbated by worsening renal function - Patient had received a large dose of Levemir the night prior, was persistently hypoglycemic over the next 24 hours - Currently he is awake and alert and conversive - s/p Glucose checks 1 hour and s/p adjusted D50 schedule - Will start diet and glucose checks AC / HS now - Will cover with ISS at this time - Will hold off on levemir for now 2. Acute hypoxic respiratory failure - possibly 2/2 aspiration, possibly 2/2 acute decompensated CHF and pleural effusion - No reported shortness of breath, cough - No reported fevers or leukocytosis - No elevation in lactic acid - CXR 11/24: Worsening infiltrate / effusion on Right lower lung field - c/w Ceftaroline (Day #2) 3. Acute kidney injury on CKD3 - possibly 2/2 pre-renal or renal etiology - Patient had a period of anuria - Currently over the last 24 hours has an output of >1300 cc - will continue to monitor urine output - lasix / fluids on hold over last 24 hours - Dr. Wiseman (Nephrology) on consult - appreciate their input 4. s/p Hyperkalemia 5. DM2 - s/p hypoglycemia; will stop q1hour glucose checks - will restart AC / HS glucose monitoring - s/p Levemir - c/w ISS for now 6. Abnormal UA - Hematuria; likely 2/2 traumatic Jordan insertion 7. s/p Bradycardia - likely 2/2 beta juan daniel - s/p carvedilol 8. s/p Hypotension - possibly 2/2 beta juan daniel 9. Symptomatic anemia / Normocytic anemia; possibly 2/2 AWILDA - Hg remains stable - occult blood pending - s/p 2 units PRBC transfusion - c/w ferrous sulfate 10. Chronic cholecystitis - HIDA negative 11. Bilateral lower extremity wound ulcers - likely 2/2 DM2 - c/w wound care as outline by podiatry - Has completed 10 day course of antibiotics as outlined by podiatry; will continue for now (re: possible aspiration) 12. CAD s/p CABG - c/w ASA and Plavix 13. Neuropathy - s/p Lyrica 14. GERD - c/w Omeprazole and Sucralfate 15. DVT prophylaxis - c/w SCDs Disposition: - Will monitor in ICU over next 24 hours; if mental status remains improved will downgrade Code status: - DNR / DNI VS,Fishbone, I+O VS, Fishbone, I+O Laboratory Tests 11/24/16 05:12 Red Blood Count 3.39 L, Mean Corpuscular Volume 87.2, Mean Corpuscular Hemoglobin 27.8, Mean Corpuscular Hemoglobin Concent 31.9 L, Red Cell Distribution Width 14.6 H, Neutrophils (%) (Auto) 70.3 H, Lymphocytes (%) (Auto ) 13.0 L, Monocytes (%) (Auto) 9.2 H, Eosinophils (%) (Auto) 4.6 H, Basophils (% ) (Auto) 0.7, Neutrophils # (Auto) 4.2, Lymphocytes # (Auto) 0.9 L, Monocytes # (Auto) 0.6, Eosinophils # (Auto) 0.3, Basophils # (Auto) 0.0, Calcium Level 6.7 #L, Phosphorus Level 3.7 #, Aspartate Amino Transf (AST/SGOT) 9 L, Alanine Aminotransferase (ALT/SGPT) 12, Alkaline Phosphatase 100, Total Bilirubin 0.2 # , Total Protein 5.4 L, Albumin 1.9 #L Vital Signs Date Time Temp Pulse Resp B/P (MAP) Pulse Ox O2 Delivery O2 Flow Rate FiO2 11/24/16 04:00 98.0 77 24 170/71 (104) 96 Nasal Cannula 1.0 11/22/16 08:00 100 I&O- Last 24 Hours up to 6 AM 11/24/16 05:59 Intake Total 130 ml Output Total 1580 ml Balance -1450 ml ISABELLA CARRERA MD November 24, 2016 10:37
[2016-11-24] MEDS ORDERED: FUROSEMIDE 40 MG/4 ML VIAL (J1940) IV ONE (10:45)
[2016-11-24] MEDS: ACETAMINOPHEN TAB 650MG DOSE (2X325MG) PO PRN (15:35)
--- NOTE | 2016-11-24 15:36 | IPN ---
DATE: 11/24/2016 SUBJECTIVE: Patient was seen and examined at the bedside this morning in the intensive care unit (ICU). Patient is much more alert and awake today. His kidney function is improving. He has a good urine output at this time. However, patient's blood pressure is slightly elevated today. REVIEW OF SYSTEMS: Patient denies any fever, chills, rigors, headache, chest pain, or shortness of breath. He denies any nausea or vomiting. He does report some mild lower abdominal discomfort. Rest of review of systems is negative. OBJECTIVE: VITAL SIGNS: Temperature is 98 degrees Fahrenheit, blood pressure was 170/71 this morning, pulse is 77, respiratory rate of 20, saturating 96% on nasal cannula at 1 liter per minute. INTAKE/OUTPUT: Urine output was 1340 mL yesterday and 395 mL so far today since overnight. Weight in the bed scale is 91.1 kg. Patient has a hourly urine output of around 60 mL/hour at this time. PHYSICAL EXAMINATION: GENERAL: Patient is awake, alert, oriented times two, laying in bed. No apparent distress. HEAD and NECK EXAM: Extraocular muscles intact. Pupils equally round and reactive to light. Mucous membranes are moist. Neck is supple. There is no jugular venous distention (JVD). He has a right-sided triple lumen catheter. CARDIOVASCULAR: S1, S2. He has a grade 3/6 systolic ejection murmur. RESPIRATORY: Decreased breath sounds at the bases and mild crackles at the bases on deep inspiration. ABDOMEN: Soft, mildly distended, positive bowel sounds, nontender. No ascites. No organomegaly at this time. Patient has a Jordan catheter and there is some debris in the urine in the Jordan catheter. EXTREMITIES: No clubbing or cyanosis. Patient has trace edema of the bilateral lower extremities and both feet are wrapped in dressing at this time. CENTRAL NERVOUS SYSTEM (MANAGER COUNCIL): Patient is oriented times two, otherwise he follows commands. He has mild asterixis, however his mental status is a lot better as compared with yesterday. LABORATORY REVIEW: CBC showed WBC 6, hemoglobin 9.4, platelets are 180. BMP showed sodium 146, potassium 3.9, chloride 116, bicarbonate 22, BUN 50, creatinine 2.7, it was 3.8 yesterday, calcium 6.7, phosphorous 3.7, magnesium 2, BNP is 1470, albumin is 1.9. IMAGING: A chest x-ray done this morning showed cardiomegaly and interstitial edema. There was increased infiltrate or pleural fluid seen inferiorly on the right side and there was consolidation in the left lung base with possible underlying pleural fluids. CURRENT MEDICATIONS: Patient's current medications were all reviewed by me. His insulin sliding scale protocol has been changed. Patient is not on any diuretics at this time. He was started on ceftaroline 300 mg IV every 12 hours starting yesterday and I gave him a dose of calcium gluconate 1 gram IV today. ASSESSMENT: 71-year-old male with past medical history of diabetes mellitus type 2, chronic kidney disease stage III, congestive heart failure, and recent diabetic foot ulcer, admitted at this time initially because of decompensated congestive heart failure (CHF), however he had to be transferred to intensive care unit (ICU) because of altered mental status, hypotension, and acute renal failure. PLAN: 1. Acute kidney injury superimposed on chronic kidney disease stage III. Patient is in nonoliguric renal failure at this time. His urine function is improving. Creatinine is slightly trending down. All the nephrotoxic medications are on hold. Continue to monitor for improvement of renal function. Continue intake and output and daily weights. 2. Hyperkalemia. Patient's potassium is getting significantly better with improvement of the renal function, potassium is 3.9 today. Continue to monitor for now. No need to further give Kayexalate at this time. 3. Congestive heart failure. Patient persistently has interstitial edema, vascular congestion, and effusions on the xray. Diuretics were on hold because of acute kidney injury, however I have ordered one dose of Lasix 40 mg IV today. 4. Hypernatremia. Hypernatremia must be secondary to diuresis after improvement of renal function and decreased oral intake. Patient was encouraged to drink more water. I would not give any dextrose 5% (D5) to the patient at this time. 5. Metabolic encephalopathy. Patient is clinically improving. Opioids, Lyrica, sedatives are on hold at this time and patient's renal function is also improving. Patient's glucose is also better and now he is eating as well. 6. Bilateral diabetic foot ulcers. Patient finished a 10 day course of antibiotics. I see the primary team has started him on ceftaroline which should possibly cover ulcers and possibility of aspiration pneumonitis as well. Rest of the management is as per primary team.
[2016-11-24] MEDS: NYSTATIN CREAM 15 GM TOP SCH ×2 (18:23→21:16)
[2016-11-25] VITALS (9 sets, daily range): BP systolic 144–192; BP diastolic 64–93
[2016-11-25] MEDS: CEFTAROLINE FOSAMIL 300 MG in D5W 50 ML IV SCH ×2 (03:17→15:42)
[2016-11-25 05:10] LABS: BASO % 0.7 % (0.0-1.0); EOS # 0.4 K/mm3 (0.0-0.50); EOS % 5.6 % (0.0-3.0); LARGE UNSTAINED CELL # 0.1 K/mm3 (0.0-0.4); LARGE UNSTAINED CELL % 1.6 % (0.0-4.0); LYMPH # 0.9 K/mm3 (1.5-4.5); LYMPH % 12.4 % (24.0-44.0); MEAN CORPUSCULAR HEMOGLOBIN 27.1 pg (27.0-33.0); MEAN CORPUSCULAR HGB CONC 31.2 g/dl (32.0-36.5); MEAN CORPUSCULAR VOLUME 86.8 fl (80.0-96.0); MONO # 0.6 K/mm3 (0.0-0.8); MONO % 9.4 % (0.0-5.0); NEUTROPHILS # 4.7 K/mm3 (1.8-7.7); NEUTROPHILS % 70.3 % (36.0-66.0); PLATELET COUNT, AUTOMATED 178 k/mm3 (150-450); RED CELL DISTRIBUTION WIDTH 14.7 % (11.5-14.5); WHITE BLOOD COUNT 6.7 K/mm3 (4.0-10.0)
[2016-11-25 05:38] LABS: ALBUMIN 2.3 GM/DL (3.2-5.2); ALBUMIN/GLOBULIN RATIO 0.61 (1.00-1.93); BILIRUBIN,TOTAL 0.3 MG/DL (0.2-1.0); CALCIUM LEVEL 7.8 MG/DL (8.8-10.2); CREATININE FOR GFR 2.89 MG/DL (0.70-1.30); MAGNESIUM LEVEL 2.2 MG/DL (1.8-2.4); POTASSIUM SERUM 4.8 MEQ/L (3.5-5.1); TOTAL PROTEIN 6.1 GM/DL (6.4-8.2)
[2016-11-25] MEDS: SODIUM CHLORIDE 0.9% INJ 10 ML SYR IV SCH ×3 (06:34→22:20)
[2016-11-25] MEDS: SLF 3 ML SYR IV SCH ×3 (06:34→22:20)
[2016-11-25] MEDS: ISOSORBIDE DIN. (ISORDIL) 20 MG TAB PO SCH ×3 (08:03→22:20)
[2016-11-25] MEDS: **hydrALAZINE HCL** 25 MG TAB PO SCH ×3 (08:03→22:20)
[2016-11-25] MEDS: HumaLOG INSULIN (NovoLOG) PER UNIT SC SCH ×4 (08:04→20:43)
--- NOTE | 2016-11-25 08:33 | IPN ---
DATE: 11/25/2016 Mr. Drake tells me that he is feeling quite well today. He was able to sleep in completely horizontal position without any difficulty. He denies any chest discomfort. He denies any sensation of palpitations and he has no pain in his feet. Unfortunately, he has virtually no recollection of the events that led to his current admission. Vital signs: Blood pressure has been running on the high side, this morning 156/76. Heart rate is in 70s. He is afebrile. Saturation is in low to mid 90s on room air. Fluid balance yesterday was about 1800 mL negative. Documented weight is 92.8 kg. He is alert and oriented and appropriate. I do not appreciate any obvious jugular venous pulse (JVP) elevation. Lungs reveal bilateral end inspiratory crackles but no wheezing. Heart exam reveals somewhat muffled heart sounds but it is regular. I do not appreciate any gallop or obvious rub or murmur. Abdomen is obese but soft. There is no significant peripheral edema. Both of his feet are bandaged and there reportedly open wounds on mostly heels. LABORATORY DATA: CBC reveals hemoglobin 10, hematocrit 32 and platelet count 178, WBC count 6.7. Basic metabolic panel: Potassium 4.8, BUN 50, creatinine 2.9 for calculated GFR 23 and glucose 148. Albumin is 2.3. His urinalysis was positive for blood but also positive for protein 2+. Review of telemetry strips reveal sinus rhythm. He had one episode of nonsustained ventricular tachycardia lasting 4 beats. I do not appreciate any bradycardia. ASSESSMENT AND PLAN: Mr. Drake is a 71-year-old man who has known ischemic cardiomyopathy with severe left ventricular systolic dysfunction. He presented with altered mental status. It is not completely clear what was the etiology and effect of pain medications. Metabolic encephalopathy and possibly also hypochromic glycemia are all in differential diagnosis. Concomitantly, he has congestive heart failure. His diuretics were held for a few days and I do not foresee him as grossly volume overloaded. Also, his beta-blockers were held due to episodes of bradycardia on presentation. At this point, I think we can reintroduce small dose of carvedilol and I ordered 3.125 mg twice a day with holding parameters. Also, because his blood pressure is elevated, I will put him on combination of isosorbide and hydralazine, which are evidence base choices rather than amlodipine that does not have any beneficial effect on outcomes in people with cardiomyopathy and severe left ventricular (LV) systolic dysfunction. We can titrate the doses upwardly as tolerated. Certainly, he is not a candidate for angiotensin receptor juan daniel (ARB) or angiotensin-converting enzyme (LESLY) inhibitor because of an underlying renal dysfunction. I will leave the diuretic dosing to nephrology that has been regulating it since his admission.
[2016-11-25] MEDS: OMEPRAZOLE 20 MG CAP PO SCH (09:18)
[2016-11-25] MEDS: CLOPIDOGREL 75 MG TAB PO SCH (09:18)
[2016-11-25] MEDS: ASPIRIN 325 MG TAB PO SCH (09:18)
[2016-11-25] MEDS: FERROUS SULFATE 325MG TAB PO SCH (09:19)
[2016-11-25] MEDS: CARVedilol 3.125 MG TAB PO SCH ×2 (09:19→20:43)
[2016-11-25] MEDS: NYSTATIN CREAM 15 GM TOP SCH ×2 (09:20→20:44)
[2016-11-25] MEDS: SILVER SULFADIAZINE 1% CR 50 GM JAR TOP SCH (09:20)
[2016-11-25] MEDS: TORSEMIDE 20 MG TAB PO SCH (10:49)
--- NOTE | 2016-11-25 10:49 | REP ---
PORTABLE CHEST: Single view. HISTORY: CHF. COMPARISON STUDY: November 24, 2016. FINDINGS: The patient status post prior median sternotomy. EKG monitoring electrodes overlie the chest. A unipolar pacemaker is seen in the right heart via the left side. The heart is mildly enlarged unchanged. There is hazy opacity at both bases, left greater than right suggesting small effusions. Pulmonary vasculature is cephalized. There is fluid in the minor fissure again noted on the right. IMPRESSION: Cardiomegaly with cephalization and hazy opacity in the bases suggestive of effusions. Pacemaker prior sternotomy. Signed by Edgard Marion MD 11/25/2016 12:18 P
--- NOTE | 2016-11-25 10:56 | IPNPDOC ---
Text Note Date of Service The patient was seen on 11/25/16. NOTE Subjective: Patient is a 71 year old male with a PMHx of DM2, HTN, DLP, Systolic CHF, AICD, CAD s/p CABG (Hx of [place]), PVD s/p b/l FemPop, and CKD3 who presented to the ER with SOB / CP. Was found to be in acute heart failure and was admitted to telemetry. Patient was subsequently upgraded to ICU on 11/22 because of encephalopathy and acute renal failure. Patient was seen and examined at the bedside today. He is conversive, has been tolerating his meals. no problems with bowel movements. No shortness of breath, chest pain or palpitations. Objective: Vitals (See below) General: Lying in bed, no acute distress, comfortable, AAOx3 HEENT: NC, AT CVS: RRR, +S1S2 Lungs: Fair air entry b/l, no appreciable crackles Abdomen: Soft, ND, NT, +BSx4 Extremities: +PPx4, - Edema, - Calf tenderness Assessment and plan: 1. s/p Acute metabolic encephalopathy - likely 2/2 hypoglycemia, exacerbated by worsening renal function - Patient had received a large dose of Levemir the night prior, was persistently hypoglycemic over the next 24 hours - Currently he is awake and alert and conversive - s/p Glucose checks 1 hour and s/p adjusted D50 schedule - Glucose levels have not shown any hypoglycemic episodes - c/w current glucose checks and ISS; will continue to hold levemir - c/w consistent carb diet 2. s/p Acute hypoxic respiratory failure - possibly 2/2 aspiration, possibly 2/ 2 acute decompensated CHF and pleural effusion - No reported shortness of breath, cough - No reported fevers or leukocytosis - No elevation in lactic acid - CXR 11/25 - reveals improvement compared to 11/24 - c/w Ceftaroline (Day #3) 3. Acute kidney injury on CKD3 - possibly 2/2 pre-renal or renal etiology - Patient had a period of anuria - Cr has improved from initial peak, but remains elevated from baseline - Continues to make urine with adequate output - s/p Lasix 40 IV yesterday - Dr. Wiseman (Nephrology) on consult - appreciate their input 4. s/p Hyperkalemia 5. DM2 - s/p hypoglycemia; will stop q1hour glucose checks - s/p Levemir - c/w ISS for now 6. Abnormal UA - Hematuria; likely 2/2 traumatic Jordan insertion 7. s/p Bradycardia - likely 2/2 beta juan daniel - s/p carvedilol 8. s/p Hypotension - possibly 2/2 beta juan daniel 9. Symptomatic anemia / Normocytic anemia; possibly 2/2 AWILDA - Hg remains stable - occult blood pending - s/p 2 units PRBC transfusion - c/w ferrous sulfate 10. Chronic cholecystitis - HIDA negative 11. Bilateral lower extremity wound ulcers - likely 2/2 DM2 - c/w wound care as outline by podiatry - Has completed 10 day course of antibiotics as outlined by podiatry; will continue for now (re: possible aspiration) 12. CAD s/p CABG - c/w ASA and Plavix 13. Neuropathy - s/p Lyrica 14. GERD - c/w Omeprazole and Sucralfate 15. DVT prophylaxis - c/w SCDs Disposition: - Will downgrade to PCU VS,Ca, I+O VS, Ca, I+O Laboratory Tests 11/25/16 05:01 Red Blood Count 3.69 L, Mean Corpuscular Volume 86.8, Mean Corpuscular Hemoglobin 27.1, Mean Corpuscular Hemoglobin Concent 31.2 L, Red Cell Distribution Width 14.7 H, Neutrophils (%) (Auto) 70.3 H, Lymphocytes (%) (Auto ) 12.4 L, Monocytes (%) (Auto) 9.4 H, Eosinophils (%) (Auto) 5.6 H, Basophils (% ) (Auto) 0.7, Neutrophils # (Auto) 4.7, Lymphocytes # (Auto) 0.9 L, Monocytes # (Auto) 0.6, Eosinophils # (Auto) 0.4, Basophils # (Auto) 0.0, Calcium Level 7.8 #L, Aspartate Amino Transf (AST/SGOT) 12 L, Alanine Aminotransferase (ALT/SGPT) 12, Alkaline Phosphatase 119 H, Total Bilirubin 0.3, Total Protein 6.1 L, Albumin 2.3 #L Vital Signs Date Time Temp Pulse Resp B/P (MAP) Pulse Ox O2 Delivery O2 Flow Rate FiO2 11/25/16 09:42 77 18 161/67 (98) 94 Room Air 11/25/16 07:55 98.2 11/24/16 04:00 1.0 11/22/16 08:00 100 I&O- Last 24 Hours up to 6 AM 11/25/16 06:00 Intake Total 1075 ml Output Total 3260 ml Balance -2185 ml ISABELLA CARRERA MD November 25, 2016 10:56
--- NOTE | 2016-11-25 11:34 | IPN ---
DATE: 11/25/2016 SUBJECTIVE: Patient was seen and examined at the bedside this morning in the intensive care unit (ICU). He is significantly better. He is much more awake and alert. He was actually sitting on the sofa getting ready to eat his breakfast. His renal function is stable. He was given a dose of Lasix 40 mg IV. He had a very good urine output with that; however, his creatinine is slightly bumped from 2.7 to 2.8 today. REVIEW OF SYSTEMS: Patient denies any fever, chills, rigors, headache, nausea, vomiting, or chest pain. He denies any shortness of breath. The patient denies any pain in the abdomen, constipation, or diarrhea. Rest of review of systems is negative. OBJECTIVE: VITAL SIGNS: Temperature is 98.2 degrees Fahrenheit, blood pressure is 161/67, pulse is 77, respiratory 18, saturating 94% on room air. INTAKE/OUTPUT: Urine output recorded as 2.7 liters yesterday and 1 liter so far today since overnight. PHYSICAL EXAMINATION: GENERAL: Patient is awake, alert, oriented times three, sitting on the sofa. No apparent distress. HEAD and NECK EXAM: Extraocular muscles intact. Pupils equally round and reactive to light. Mucous membranes are moist. Neck is supple. There is no jugular venous distention (JVD). The patient has a right-sided IJ triple lumen catheter. CARDIOVASCULAR: S1, S2. Regular rate. He has a grade 3/6 systolic ejection murmur. RESPIRATORY: Mildly decreased breath sounds at the bases and mild crepitations on deep inspiration on bilateral bases. ABDOMEN: Soft, mildly distended, positive bowel sounds, nontender. No ascites. No organomegaly. The patient has an indwelling Jordan catheter as well. EXTREMITIES: No clubbing or cyanosis. He has trace edema of the bilateral lower extremities and his bilateral feet are wrapped in dressings. CENTRAL NERVOUS SYSTEM (ROTATING EQUIPMENT SPECIALIST): He is oriented times three today. No focal neurological deficits. Power is 5/5 in all extremities. LABORATORY REVIEW: CBC showed WBC 6.7, hemoglobin 10, platelets are 178. BMP showed sodium 142, potassium 4.8, chloride 109, bicarbonate 27, BUN 50, creatinine 2.8, calcium 7.8, magnesium is 2.2, albumin is 2.3. IMAGING: A chest x-ray done this morning showed cardiomegaly with cephalization and hazy opacity in the base, suggestive of effusions, left greater than right. CURRENT MEDICATIONS: Patient's medications were all reviewed by me. His amlodipine has been stopped. He was started on Coreg 3.125 mg by mouth twice a day, hydralazine 25 mg by mouth every 8 hours, isosorbide 20 mg by mouth every 8 hours and I have started him on torsemide 20 mg by mouth daily. ASSESSMENT: 71-year-old male with past medical history of diabetes mellitus type 2, chronic kidney disease stage III, congestive heart failure, and recent diabetic foot ulcer, admitted to intensive care unit (ICU) because of altered mental status, hypotension and acute renal failure in the setting of decompensated congestive heart failure (CHF) as well. PLAN: 1. Acute kidney injury superimposed on chronic kidney disease. It was most likely secondary to Bactrim and high dose of diuretics. The patient's renal function is improving now. He was still in congestive heart failure (CHF) yesterday. He was given a dose of Lasix 40 mg intravenously. He had a good urine output; however, there was a slight bump in the creatinine. His creatinine is 2.8 at this time. His baseline creatinine is around 2. Continue to monitor for improvement of renal function. 2. Congestive heart failure. Patient does not look clinically overloaded, but his x-rays still show cephalization of pulmonary vessels on the chest x-ray. I have started the patient on torsemide 20 mg by mouth daily. The dose will be adjusted as needed. 3. Hypernatremia. The patient's hypernatremia is significantly better. Sodium is 142. 4. Hypertension. The patient was already seen by cardiology this morning. They have stopped amlodipine. The patient has been switched to hydralazine, isosorbide and Coreg. Blood pressure is improving right now. Management of antihypertensive regimen is as per cardiology team. 5. Metabolic encephalopathy. The patient is significantly better at this time. He is oriented times three. There is much clinical improvement at this time. 6. Iron deficiency anemia. The patient's iron levels are low, but because of acute infection, diabetic foot ulcers, possible recent pulmonary infection, he cannot get IV iron. Continue oral iron at this time. Hemoglobin is 10. No need of Aranesp administration or IV packed red blood cell transfusion at this time. Plan of care was discussed with the patient's RN at the bedside.
[2016-11-26] VITALS (7 sets, daily range): BP systolic 133–191; BP diastolic 59–74
[2016-11-26] MEDS: CEFTAROLINE FOSAMIL 300 MG in D5W 50 ML IV SCH (04:59)
[2016-11-26] MEDS: **hydrALAZINE HCL** 25 MG TAB PO SCH (05:07)
[2016-11-26] MEDS: ISOSORBIDE DIN. (ISORDIL) 20 MG TAB PO SCH ×3 (05:07→21:07)
[2016-11-26] MEDS: SODIUM CHLORIDE 0.9% INJ 10 ML SYR IV SCH ×3 (05:08→21:08)
[2016-11-26 05:10] LABS: IONIZED CALCIUM 4.6 MG/DL (4.5-5.3)
[2016-11-26 05:13] LABS: BASO % 0.5 % (0.0-1.0); EOS # 0.4 K/mm3 (0.0-0.50); EOS % 6.9 % (0.0-3.0); LARGE UNSTAINED CELL # 0.1 K/mm3 (0.0-0.4); LARGE UNSTAINED CELL % 1.7 % (0.0-4.0); LYMPH # 1.1 K/mm3 (1.5-4.5); LYMPH % 15.4 % (24.0-44.0); MEAN CORPUSCULAR HEMOGLOBIN 27.7 pg (27.0-33.0); MEAN CORPUSCULAR HGB CONC 31.6 g/dl (32.0-36.5); MEAN CORPUSCULAR VOLUME 87.8 fl (80.0-96.0); MONO # 0.6 K/mm3 (0.0-0.8); MONO % 9.8 % (0.0-5.0); NEUTROPHILS # 4.1 K/mm3 (1.8-7.7); NEUTROPHILS % 65.7 % (36.0-66.0); PLATELET COUNT, AUTOMATED 183 k/mm3 (150-450); RED CELL DISTRIBUTION WIDTH 14.8 % (11.5-14.5); WHITE BLOOD COUNT 6.2 K/mm3 (4.0-10.0)
[2016-11-26 05:48] LABS: PHOSPHORUS LEVEL 3.3 MG/DL (2.5-4.9)
[2016-11-26 05:50] LABS: ALBUMIN 2.3 GM/DL (3.2-5.2); ALBUMIN/GLOBULIN RATIO 0.64 (1.00-1.93); BILIRUBIN,TOTAL 0.2 MG/DL (0.2-1.0); CALCIUM LEVEL 7.8 MG/DL (8.8-10.2); CREATININE FOR GFR 2.71 MG/DL (0.70-1.30); GLOMERULAR FILTRATION RATE 24.8 (>42); MAGNESIUM LEVEL 2.2 MG/DL (1.8-2.4); POTASSIUM SERUM 5.2 MEQ/L (3.5-5.1); TOTAL PROTEIN 5.9 GM/DL (6.4-8.2)
[2016-11-26] MEDS ORDERED: SOD POLYSTYRENE SULFONATE SUSP 15 GM/60 ML UD PO ONE (08:00)
--- NOTE | 2016-11-26 08:07 | IPN ---
DATE: 11/26/2016 Mr. Drake had good night. He tells me that he did not have any difficulty sleeping and he feels that his breathing is fairly nonlabored. He has no specific complaints. Review of telemetry monitoring did not reveal any arrhythmias overnight. VITAL SIGNS: Blood pressure 175/74, heart rate in 60s and 70s. He is afebrile. Saturation 94% on room air. Documented weight 93.1 kg. His fluid balance yesterday was felt to be about 440 negative. His CVP yesterday morning was only 8 though. He is alert and oriented and appropriate. His JVP does not appear elevated. Lungs are clear to auscultation with good air movement. Heart exam reveals regular rhythm. I do not appreciate gallop, rub or murmur. Abdomen is soft and nontender. There is trace peripheral edema. Neurologically , he appears intact. Laboratory tanner, his CBC reveals WBC count 6.2, hemoglobin 9.7, hematocrit 30.8 and platelet count 183,000. Basic metabolic panel reveals potassium 5.2, BUN 53 , creatinine 2.7 for a GFR of 25 and glucose 182. His albumin is 2.3. ASSESSMENT/PLAN: Mr. Drake is a 71-year-old man who has severe ischemic cardiomyopathy with severe LV systolic dysfunction and secondary pulmonary hypertension. He came with altered mental status, likely due to combination of factors that have been clearing slowly. He also has acute on chronic renal failure. I am going to advance the dose of hydralazine today as he still remains hypertensive. I will leave the dose of beta-juan daniel unchanged as he was initially bradycardic and also because his potassium is marginally elevated. The dosing of diuretics remains with the nephrology service. He has been clinically improving. I think we can advance his ambulation. I am hoping that he will be able to go home within a couple three days. [facility] HOSPITALJocelyn
--- NOTE | 2016-11-26 08:10 | IPN ---
DATE: 11/26/2016 Mr. Drake had good night. He tells me that he did not have any difficulty sleeping and he feels that his breathing is fairly nonlabored. He has no specific complaints. Review of telemetry monitoring did not reveal any arrhythmias overnight. VITAL SIGNS: Blood pressure 175/74, heart rate in 60s and 70s. He is afebrile. Saturation 94% on room air. Documented weight 93.1 kg. His fluid balance yesterday was felt to be about 440 negative. His CVP yesterday morning was only 8 though. He is alert and oriented and appropriate. His JVP does not appear elevated. Lungs are clear to auscultation with good air movement. Heart exam reveals regular rhythm. I do not appreciate gallop, rub or murmur. Abdomen is soft and nontender. There is trace peripheral edema. Neurologically, he appears intact. Laboratory tanner, his CBC reveals WBC count 6.2, hemoglobin 9.7, hematocrit 30.8 and platelet count 183,000. Basic metabolic panel reveals potassium 5.2, BUN 53, creatinine 2.7 for a GFR of 25 and glucose 182. His albumin is 2.3. ASSESSMENT/PLAN: Mr. Drake is a 71-year-old man who has severe ischemic cardiomyopathy with severe LV systolic dysfunction and secondary pulmonary hypertension. He came with altered mental status, likely due to combination of factors that have been clearing slowly. He also has acute on chronic renal failure. I am going to advance the dose of hydralazine today as he still remains hypertensive. I will leave the dose of beta-juan daniel unchanged as he was initially bradycardic and also because his potassium is marginally elevated. The dosing of diuretics remains with the nephrology service. He has been clinically improving. I think we can advance his ambulation. I am hoping that he will be able to go home within a couple three days.
[2016-11-26] MEDS: ASPIRIN 325 MG TAB PO SCH (08:24)
[2016-11-26] MEDS: CLOPIDOGREL 75 MG TAB PO SCH (08:25)
[2016-11-26] MEDS: TORSEMIDE 20 MG TAB PO SCH (08:25)
[2016-11-26] MEDS: OMEPRAZOLE 20 MG CAP PO SCH (08:25)
[2016-11-26] MEDS: CARVedilol 3.125 MG TAB PO SCH ×2 (08:25→20:23)
[2016-11-26] MEDS: FERROUS SULFATE 325MG TAB PO SCH (08:25)
[2016-11-26] MEDS: HumaLOG INSULIN (NovoLOG) PER UNIT SC SCH ×4 (08:27→20:23)
[2016-11-26] MEDS: NYSTATIN CREAM 15 GM TOP SCH ×2 (08:35→20:23)
[2016-11-26] MEDS: SILVER SULFADIAZINE 1% CR 50 GM JAR TOP SCH ×2 (08:35→09:00)
--- NOTE | 2016-11-26 12:48 | IPNPDOC ---
Subjective Date Seen The patient was seen on 11/26/16. Subjective Chief Complaint/HPI The patient is a 71-year-old male admitted with a reason for visit of Acute On Chronic Systolic(Congestive)Heart Failure. General: Denies: Chills, Night Sweats Constitutional: Denies: Chills, Fever Eyes: Denies: Pain, Vision change ENT: Denies: Head Aches, Ear Pain Skin: Denies: Rash, Lesions Pulmonary: Denies: Dyspnea, Cough Cardiovascular: Denies: Chest Pain, Palpitations Gastrointestinal: Denies: Nausea, Vomiting Genitourinary: Denies: Dysuria, Frequency Hematologic: Denies: Bruising, Bleeding Excessively Musculoskeletal: Denies: Neck Pain, Back Pain Objective Physical Examination General Exam: Positive: Alert, Cooperative, No Acute Distress ENT Exam: Positive: Atraumatic, Mucous membr. moist/pink Neck Exam: Negative: JVD Chest Exam: Positive: Clear to auscultation, Normal air movement, Negative: Rales Heart Exam: Positive: Rate Normal, Normal S1, Normal S2 Telemetry: Positive: Sinus Abdomen Exam: Positive: Soft, Negative: Tenderness Extremity Exam: Negative: Tenderness, Swelling Assessment /Plan Plan/VTE VTE Prophylaxis Ordered?: Yes Plan/Urinary Catheter Reason for insertion/continuin: Critical Pt monitoring Plan s/p Acute hypoxic respiratory failure 2/2 acute decompensated CHF and pleural effusion, resolved Patient has diuresed a net negative of ~2.3L of fluid here since admission Appears more euvolemic, and is comfortably breathing 96-100% on Room Air Volume status has been optimized with diuretic dose titrating with the assistance of Nephrology Cardiology input appreciated, and the patient's blood pressure medications have been adjusted for treatment of underlying LV systolic dysfunction 2D ECHO notable for LV Systolic dysfunction with an EF of 30-35% Cont Daily weights, I/O's We will continue to monitor the patient's status Acute kidney injury Superimposed on Chronic Kidney Disease Stage 3A-B Likely 2/2 Diuretic usage, use of Bactrim as o/p Serum Creatinine 3.8-->2.7 (Baseline ~2.0) Patient on Torsemide 20mg as per Nephro We will continue to monitor renal function Dr. Wiseman on board Insulin Dependent Diabetes Mellitus Patient on high doses of Lantus at home, however they have been held here after the patient was noted to be hypoglycemic here Continue ISS for now-->We will add long acting regimen back if the patient's blood sugar goes up Hypertension Cont current regimen Bilateral lower extremity wound ulcers s/p Completion of Abx Trial--no active infective component recognized here CAD s/p CABG Cont ASA and Plavix, Coreg Neuropathy Lyrica GERD Omeprazole and Sucralfate DVT prophylaxis SCDs Disposition--We will continue to optimize the patient's Cardiac and Renal status as he does appear to be improving significantly over the last few days. PT evaluation ordered. Anticipate D/C in the next 48-72 hrs pending clinical improvement. VS, I&O, 24H, Fishbone Vital Signs/I&O Vital Signs Date Time Temp Pulse Resp B/P (MAP) Pulse Ox O2 Delivery O2 Flow Rate FiO2 11/26/16 08:25 67 140/65 11/26/16 08:00 99.3 18 100 Room Air 11/24/16 04:00 1.0 11/22/16 08:00 100 I&O- Last 24 Hours up to 6 AM 11/26/16 06:00 Intake Total 940 ml Output Total 1070 ml Balance -130 ml Laboratory Data 24H LABS Laboratory Tests 2 11/25/16 16:45: Bedside Glucose (Misc Panel) 260H 11/25/16 20:42: Bedside Glucose (Misc Panel) 192H 11/26/16 05:02: White Blood Count 6.2, Red Blood Count 3.51L, Hemoglobin 9.7L, Hematocrit 30.8L , Mean Corpuscular Volume 87.8, Mean Corpuscular Hemoglobin 27.7, Mean Corpuscular Hemoglobin Concent 31.6L, Red Cell Distribution Width 14.8H, Platelet Count 183, Neutrophils (%) (Auto) 65.7, Lymphocytes (%) (Auto) 15.4L, Monocytes (%) (Auto) 9.8H, Eosinophils (%) (Auto) 6.9H, Basophils (%) (Auto) 0.5 , Neutrophils # (Auto) 4.1, Lymphocytes # (Auto) 1.1L, Monocytes # (Auto) 0.6, Eosinophils # (Auto) 0.4, Basophils # (Auto) 0.0, Large Unclassified Cells % 1.7 , Large Unclassified Cells # 0.1, Anion Gap 4L, Glomerular Filtration Rate 24.8L , Blood Urea Nitrogen 53H, Creatinine 2.71H, Sodium Level 143, Potassium Level 5.2H, Chloride Level 110H, Carbon Dioxide Level 29, Calcium Level 7.8L, Aspartate Amino Transf (AST/SGOT) 12L, Alanine Aminotransferase (ALT/SGPT) 11L, Alkaline Phosphatase 114, Total Bilirubin 0.2, Total Protein 5.9L, Albumin 2.3L , Whole Blood Ionized Calcium 4.6, Phosphorus Level 3.3, Magnesium Level 2.2, Albumin/Globulin Ratio 0.64L CBC/BMP Laboratory Tests 11/26/16 05:02 Red Blood Count 3.51 L, Mean Corpuscular Volume 87.8, Mean Corpuscular Hemoglobin 27.7, Mean Corpuscular Hemoglobin Concent 31.6 L, Red Cell Distribution Width 14.8 H, Neutrophils (%) (Auto) 65.7, Lymphocytes (%) (Auto) 15.4 L, Monocytes (%) (Auto) 9.8 H, Eosinophils (%) (Auto) 6.9 H, Basophils (%) (Auto) 0.5, Neutrophils # (Auto) 4.1, Lymphocytes # (Auto) 1.1 L, Monocytes # ( Auto) 0.6, Eosinophils # (Auto) 0.4, Basophils # (Auto) 0.0, Calcium Level 7.8 L , Aspartate Amino Transf (AST/SGOT) 12 L, Alanine Aminotransferase (ALT/SGPT) 11 L, Alkaline Phosphatase 114, Total Bilirubin 0.2, Total Protein 5.9 L, Albumin 2.3 L ALIRIO TORRES MD November 26, 2016 12:48
[2016-11-26] MEDS: **hydrALAZINE** 50 MG TAB PO SCH ×2 (13:41→21:07)
--- NOTE | 2016-11-26 17:16 | IPN ---
DATE: 11/26/2016 SUBJECTIVE: Patient was seen and examined at the bedside today in the morning. He is much more awake and alert. He is hemodynamically stable. Blood pressure has been improving. Renal function is almost stable as compared with yesterday. Patient has a good urine output. REVIEW OF SYSTEMS: Patient denies any fever, chills, rigors, headache, nausea, vomiting, chest pain, shortness of breath, pain in abdomen, constipation, or diarrhea. Rest of review of systems is negative. OBJECTIVE: VITAL SIGNS: Temperature 99.3 degrees Fahrenheit, blood pressure 140/65, pulse 67, respiratory rate of 18, saturating at 100% on room air. INTAKE and OUTPUT: Urine output recorded was 1.3 liters yesterday, 600 mL so far today since overnight. Weight in the bed scale is 93.1 kg. PHYSICAL EXAMINATION: GENERAL: Patient is awake, alert, oriented times three, laying in bed, no apparent distress. HEAD and NECK EXAM: Extraocular muscles intact. Pupils equally round and reactive to light. Mucous membranes are moist. Neck is supple, there is no jugular venous distention (JVD). Patient has a triple lumen catheter in the right internal jugular (IJ). CARDIOVASCULAR: S1, S2, regular rate. He has a grade 3/6 systolic ejection murmur. RESPIRATORY: Mildly decreased breath sounds at the bases and mild crepitations at the bases on deep inspiration. ABDOMEN: Soft, positive bowel sounds, nontender. No ascites. No organomegaly. Jordan catheter has been removed today. EXTREMITIES: No clubbing or cyanosis. He has trace edema of the bilateral lower extremities and bilateral feet are wrapped in dressing. CENTRAL NERVOUS SYSTEM (DIRECTOR OF SCIENCE): No focal neurological deficit. Power is 5/5. He is oriented times three. LABORATORY REVIEW: CBC showed a WBC 6.2, hemoglobin 9.7, platelets are 183. BMP showed sodium 143, potassium 5.2, chloride 110, bicarbonate 29, BUN 53, creatinine 2.7, calcium 7.8, ionized calcium 4.6, phosphorous 3.3, albumin 2.3. Immunology: XOCHILT screen is negative. CURRENT MEDICATIONS: Patient's medications were all reviewed by me. His ceftaroline has been stopped. Hydralazine dose has been increased to 50 mg by mouth every 8 hours. Patient was given another dose of Kayexalate 30 grams by mouth times one dose and patient continues to be on torsemide 20 mg by mouth daily. ASSESSMENT: 71-year-old male with past medical history of diabetes mellitus type 2, chronic kidney disease stage III, congestive heart failure, and recent diabetic foot ulcers, admitted at this time to intensive care unit (ICU) because of altered mental status, hypotension, and acute renal failure. PLAN: 1. Acute kidney injury superimposed on chronic kidney disease stage III. Patient's baseline creatinine is around 2. His renal function is improving. I have started a low dose of torsemide 20 mg by mouth daily. Continue to monitor for improvement of renal function. 2. Congestive heart failure. Patient is clinically euvolemic, however chest xrays do show pulmonary vascular congestion. He was started on torsemide, continue the dose for now. Once renal function gets better, I would increase the dose of torsemide to 40 mg by mouth daily. I would repeat another chest xray in the morning. 3. Hypertension. Patient's blood pressures are still sporadically elevated. Continue current dose of Coreg and isosorbide. Hydralazine was already increased by cardiology to 50 mg every 8 hours. Rest of the management of antihypertensives is as per cardiology. 4. Iron deficiency anemia. Patient's hemoglobin is 9.7. IV iron was not given because of acute infection and diabetic foot ulcers. Continue the oral iron tablets at this time. 5. Hyperkalemia. Patient's potassium is slightly elevated at 5.2 today, it should get better with improvement of kidney function. I have changed the diet to low potassium diet. Patient was already given a dose of Kayexalate today in the morning.
[2016-11-26] MEDS: ACETAMINOPHEN TAB 650MG DOSE (2X325MG) PO PRN (21:07)
[2016-11-27] VITALS: BP 135/65
[2016-11-27 00:06] LABS: C PEPTIDE URINE 19.3 ng/mL (Not Estab.)
[2016-11-27 04:00] VITALS: BP 172/74
[2016-11-27] MEDS: ISOSORBIDE DIN. (ISORDIL) 20 MG TAB PO SCH ×3 (05:04→21:01)
[2016-11-27] MEDS: SODIUM CHLORIDE 0.9% INJ 10 ML SYR IV SCH ×3 (05:04→22:00)
[2016-11-27] MEDS: **hydrALAZINE** 50 MG TAB PO SCH (05:04)
[2016-11-27 05:26] LABS: BASO % 0.7 % (0.0-1.0); EOS # 0.5 K/mm3 (0.0-0.50); LARGE UNSTAINED CELL # 0.2 K/mm3 (0.0-0.4); LARGE UNSTAINED CELL % 3.5 % (0.0-4.0); LYMPH % 19.6 % (24.0-44.0); MEAN CORPUSCULAR HGB CONC 31.3 g/dl (32.0-36.5); MEAN CORPUSCULAR VOLUME 89.4 fl (80.0-96.0); MONO # 0.5 K/mm3 (0.0-0.8); MONO % 9.4 % (0.0-5.0); NEUTROPHILS # 3.1 K/mm3 (1.8-7.7); NEUTROPHILS % 57.9 % (36.0-66.0); PLATELET COUNT, AUTOMATED 174 k/mm3 (150-450); RED CELL DISTRIBUTION WIDTH 14.8 % (11.5-14.5); WHITE BLOOD COUNT 5.3 K/mm3 (4.0-10.0)
[2016-11-27 05:54] LABS: ALBUMIN 2.5 GM/DL (3.2-5.2); ALBUMIN/GLOBULIN RATIO 0.69 (1.00-1.93); BILIRUBIN,TOTAL 0.2 MG/DL (0.2-1.0); CALCIUM LEVEL 8.1 MG/DL (8.8-10.2); CREATININE FOR GFR 2.52 MG/DL (0.70-1.30); MAGNESIUM LEVEL 2.3 MG/DL (1.8-2.4); POTASSIUM SERUM 4.7 MEQ/L (3.5-5.1); TOTAL PROTEIN 6.1 GM/DL (6.4-8.2)
[2016-11-27 08:00] VITALS: BP 163/70
[2016-11-27] MEDS: ASPIRIN 325 MG TAB PO SCH (08:13)
[2016-11-27] MEDS: CLOPIDOGREL 75 MG TAB PO SCH (08:13)
[2016-11-27] MEDS: OMEPRAZOLE 20 MG CAP PO SCH (08:13)
[2016-11-27] MEDS: TORSEMIDE 20 MG TAB PO SCH (08:13)
[2016-11-27] MEDS: FERROUS SULFATE 325MG TAB PO SCH (08:14)
[2016-11-27] MEDS: CARVedilol 6.25 MG TAB PO SCH ×2 (08:14→21:02)
[2016-11-27] MEDS: HumaLOG INSULIN (NovoLOG) PER UNIT SC SCH ×4 (08:14→20:50)
[2016-11-27] MEDS: amLODIPine 5 MG TAB PO SCH (08:15)
[2016-11-27] MEDS: NYSTATIN CREAM 15 GM TOP SCH ×2 (08:15→21:02)
[2016-11-27] MEDS: SILVER SULFADIAZINE 1% CR 50 GM JAR TOP SCH (09:00)
--- NOTE | 2016-11-27 11:04 | IPNPDOC ---
Subjective Date Seen The patient was seen on 11/27/16. Subjective Chief Complaint/HPI The patient is a 71-year-old male admitted with a reason for visit of Acute On Chronic Systolic(Congestive)Heart Failure. General: Denies: Chills, Night Sweats Constitutional: Denies: Chills, Fever Eyes: Denies: Pain, Vision change ENT: Denies: Head Aches, Ear Pain Skin: Denies: Rash, Lesions Pulmonary: Denies: Dyspnea, Cough Cardiovascular: Denies: Chest Pain, Palpitations Gastrointestinal: Denies: Nausea, Vomiting Genitourinary: Denies: Dysuria, Frequency Hematologic: Denies: Bruising, Bleeding Excessively Musculoskeletal: Denies: Neck Pain, Back Pain Objective Physical Examination General Exam: Positive: Alert, Cooperative, No Acute Distress ENT Exam: Positive: Atraumatic, Mucous membr. moist/pink Neck Exam: Negative: JVD Chest Exam: Positive: Clear to auscultation, Normal air movement, Negative: Rales Heart Exam: Positive: Rate Normal, Normal S1, Normal S2 Telemetry: Positive: Sinus Abdomen Exam: Positive: Soft, Negative: Tenderness Extremity Exam: Negative: Tenderness, Swelling Assessment /Plan Plan/VTE VTE Prophylaxis Ordered?: Yes Plan/Urinary Catheter Reason for insertion/continuin: Critical Pt monitoring Plan s/p Acute hypoxic respiratory failure 2/2 acute decompensated CHF and pleural effusion, resolved Patient has diuresed a net negative of ~2L of fluid here since admission Appears more euvolemic, and is comfortably breathing 96-100% on Room Air Volume status has been optimized with diuretic dose titrating with the assistance of Nephrology Cardiology input appreciated, and the patient's blood pressure medications have been adjusted for treatment of underlying LV systolic dysfunction 2D ECHO notable for LV Systolic dysfunction with an EF of 30-35% Cont Daily weights, I/O's We will continue to monitor the patient's status Acute kidney injury Superimposed on Chronic Kidney Disease Stage 3A-B Likely 2/2 Diuretic usage, use of Bactrim as o/p Serum Creatinine 3.8-->2.7-->2.5 (Baseline ~2.0) Patient on Torsemide 20mg as per Nephro, will be uptitrated at their discretion We will continue to monitor renal function Dr. Wiseman on board Insulin Dependent Diabetes Mellitus Patient on high doses of Lantus at home, however they have been held here after the patient was noted to be hypoglycemic here Continue ISS for now-->We will add long acting regimen back if the patient's blood sugar goes up Hypertension Cont current regimen Bilateral lower extremity wound ulcers s/p Completion of Abx Trial--no active infective component recognized here CAD s/p CABG Cont ASA and Plavix, Coreg Neuropathy Lyrica GERD Omeprazole and Sucralfate DVT prophylaxis SCDs Disposition--We will continue to optimize the patient's Cardiac and Renal status as he does appear to be improving significantly over the last few days. PT evaluation noted. Anticipate D/C in the next 48 hrs pending clinical improvement. VS, I&O, 24H, Fishbone Vital Signs/I&O Vital Signs Date Time Temp Pulse Resp B/P (MAP) Pulse Ox O2 Delivery O2 Flow Rate FiO2 11/27/16 08:14 72 163/70 11/27/16 08:00 98.4 18 95 Room Air 11/24/16 04:00 1.0 11/22/16 08:00 100 I&O- Last 24 Hours up to 6 AM 11/27/16 05:59 Intake Total 1170 ml Output Total 1000 ml Balance 170 ml Laboratory Data 24H LABS Laboratory Tests 2 11/26/16 11:15: Bedside Glucose (Misc Panel) 260H 11/26/16 16:44: Bedside Glucose (Misc Panel) 184H 11/26/16 20:21: Bedside Glucose (Misc Panel) 138H 11/27/16 05:01: White Blood Count 5.3, Red Blood Count 3.50L, Hemoglobin 9.8L, Hematocrit 31.3L , Mean Corpuscular Volume 89.4, Mean Corpuscular Hemoglobin 28.0, Mean Corpuscular Hemoglobin Concent 31.3L, Red Cell Distribution Width 14.8H, Platelet Count 174, Neutrophils (%) (Auto) 57.9, Lymphocytes (%) (Auto) 19.6L, Monocytes (%) (Auto) 9.4H, Eosinophils (%) (Auto) 9.0H, Basophils (%) (Auto) 0.7 , Neutrophils # (Auto) 3.1, Lymphocytes # (Auto) 1.0L, Monocytes # (Auto) 0.5, Eosinophils # (Auto) 0.5, Basophils # (Auto) 0.0, Large Unclassified Cells % 3.5 , Large Unclassified Cells # 0.2, Anion Gap 6L, Glomerular Filtration Rate 27.0L , Blood Urea Nitrogen 49H, Creatinine 2.52H, Sodium Level 144, Potassium Level 4.7, Chloride Level 110H, Carbon Dioxide Level 28, Calcium Level 8.1L, Aspartate Amino Transf (AST/SGOT) 8L, Alanine Aminotransferase (ALT/SGPT) 12, Alkaline Phosphatase 110, Total Bilirubin 0.2, Total Protein 6.1L, Albumin 2.5L , Magnesium Level 2.3, Albumin/Globulin Ratio 0.69L CBC/BMP Laboratory Tests 11/27/16 05:01 Red Blood Count 3.50 L, Mean Corpuscular Volume 89.4, Mean Corpuscular Hemoglobin 28.0, Mean Corpuscular Hemoglobin Concent 31.3 L, Red Cell Distribution Width 14.8 H, Neutrophils (%) (Auto) 57.9, Lymphocytes (%) (Auto) 19.6 L, Monocytes (%) (Auto) 9.4 H, Eosinophils (%) (Auto) 9.0 H, Basophils (%) (Auto) 0.7, Neutrophils # (Auto) 3.1, Lymphocytes # (Auto) 1.0 L, Monocytes # ( Auto) 0.5, Eosinophils # (Auto) 0.5, Basophils # (Auto) 0.0, Calcium Level 8.1 L , Aspartate Amino Transf (AST/SGOT) 8 L, Alanine Aminotransferase (ALT/SGPT) 12 , Alkaline Phosphatase 110, Total Bilirubin 0.2, Total Protein 6.1 L, Albumin 2.5 L ALIRIO TORRES MD November 27, 2016 11:04
[2016-11-27 12:00] VITALS: BP 143/77
[2016-11-27] MEDS: **hydrALAZINE HCL** 25 MG TAB PO SCH ×2 (14:33→21:01)
--- NOTE | 2016-11-27 14:58 | IPN ---
DATE: 11/27/2016 SUBJECTIVE: Patient was seen and examined at the bedside today in the morning in the intensive care unit (ICU). He was actually getting physical therapy (PT) in intensive care unit (ICU) when I saw the patient. The patient is much more awake and alert. His renal function continues to improve. He denies any shortness of breath at this time. REVIEW OF SYSTEMS: Patient denies any fever, chills, rigors, headache, nausea, vomiting, chest pain, shortness of breath, pain in abdomen, constipation, or diarrhea. Rest of review of systems is negative. OBJECTIVE: VITAL SIGNS: Temperature 98.4 degrees Fahrenheit, blood pressure 163/70, pulse is 72, respiratory rate of 18, saturating at 95% on room air. INTAKE and OUTPUT: Urine output recorded is 1100 mL yesterday and 400 mL so far today since overnight. Weight in the bed scale is 91.9 kg. PHYSICAL EXAMINATION: GENERAL: Patient is awake, alert, oriented times three, sitting in the bed and in no apparent distress. HEAD and NECK EXAM: Extraocular muscles intact. Pupils equally round and reactive to light. Mucous membranes are moist. Neck is supple, there is no jugular venous distention (JVD). Patient has a triple lumen catheter in the right internal jugular (IJ). CARDIOVASCULAR: S1, S2, regular rate. The patient has a grade 2/6 systolic ejection systolic murmur. RESPIRATORY: Chest is clear to auscultation bilaterally. Bilateral equal air entry. No rales or rhonchi. ABDOMEN: Soft, positive bowel sounds, nontender. No ascites. No organomegaly. EXTREMITIES: No clubbing or cyanosis. The patient has dressings on the bilateral feet. CENTRAL NERVOUS SYSTEM (RETAIL SALES DIRECTOR): No focal neurological deficit. Power is 5/5 in all extremities. LABORATORY REVIEW: CBC showed a WBC 5.3, hemoglobin 9.8, platelets are 174. BMP showed sodium 144, potassium 4.7, chloride 110, bicarbonate is 28, BUN is 49, creatinine 2.5, calcium 8.1, albumin is 2.5. CURRENT MEDICATIONS: Patient's medications were all reviewed by me. His carvedilol dose has been increased to 6.25 mg by mouth twice a day and hydralazine dose has been increased to 75 mg by mouth every 8 hours. There is no other change in the medications today as compared with yesterday. ASSESSMENT: 71-year-old male with past medical history of diabetes mellitus type 2, chronic kidney disease stage III, congestive heart failure, and recent diabetic foot ulcers, admitted at this time to intensive care unit (ICU) because of altered mental status, hypotension, and acute renal failure. PLAN: 1. Acute kidney injury superimposed on chronic kidney disease stage III. Patient's renal function continues to improve. His creatinine is 2.5 today. His baseline creatinine is around 2. Continue to monitor for improvement of renal function. 2. Congestive heart failure. Patient is currently well optimized according to his volume status. I will continue current dose of torsemide 20 mg by mouth daily. Shortness of breath is improved. 3. Hypertension. Patient's blood pressures is still elevated. I see cardiology service has already increased the dose of Coreg and hydralazine. Continue current dose of isosorbide. Rest of the management is as per cardiology recommendations. 4. Iron deficiency anemia. Hemoglobin is stable. IV Venofer will not be given because of recent foot infections. Continue oral iron at this time. 5. Hyperkalemia. Potassium is better at 4.7 today. I have decreased the potassium in the diet. No urgent need of Kayexalate at this time. Continue to monitor for now.
--- NOTE | 2016-11-27 15:49 | CR ---
DATE OF CONSULTATION: 11/27/2016 REASON FOR CONSULTATION: Foot wounds. Patient seen and examined at bedside. He has been admitted for shortness of breath and congestive heart failure (CHF) exacerbation. He has been having wet-to-dry dressings placed on wounds. Denies much pain in his feet. PAST MEDICAL HISTORY: Significant for: 1. Diabetes. 2. Hypertension. 3. Hyperlipidemia. 4. Systolic CHF. 5. Automatic implantable cardioverter-defibrillator (AICD). 6. Coronary artery disease. 7. History of myocardial infarction (MI0. 8. Coronary artery bypass graft (CABG). 9. Peripheral vascular disease (PVD). 10. Chronic kidney disease. PAST SURGICAL HISTORY: Significant for: 1. Coronary stents. 2. Bilateral femoral-popliteal bypass. 3. Coronary artery bypass graft and AICD placement. SOCIAL HISTORY: Denies current smoking or alcohol use. ALLERGIES: Shelley. REVIEW OF SYSTEMS: Patient is denying nausea, vomiting, fever, chills. States he is breathing better since admission. Denies pain in feet. HOME MEDICATIONS: Include aspirin, carvedilol, clopidogrel, insulin, losartan, metoprolol, omeprazole, Lyrica, spironolactone, sucralfate, torsemide, and Bactrim. VITAL SIGNS: Patient has been afebrile. White blood cell count is 5.3. Lower extremity examination: Pulses are palpable. Minimal edema to both feet. Wounds are inspected. The forefoot wounds have all closed. The heel wounds are improved in nature compared to last seen in office. The left foot heel wound is granular. No surrounding erythema. The right heel wound has some fibrotic tissue with granular tissue surrounding. ASSESSMENT: A 71-year-old male with bilateral feet wounds. PLAN: Wounds are sharply debrided with scalpel, including subcutaneous tissue. Start dressing changes, calcium alginate for drainage. Cover with Allevyn border or dry gauze dressing. He may weight bear as tolerated. Patient will followup with me next week once he is discharged here.
[2016-11-27 16:00] VITALS: BP 168/77
[2016-11-27 20:00] VITALS: BP 192/85
[2016-11-27] MEDS: ACETAMINOPHEN TAB 650MG DOSE (2X325MG) PO PRN (21:01)
[2016-11-28] VITALS: BP 164/68
[2016-11-28 00:06] LABS: ACETOHEXAMIDE Negative ug/mL (20-60); CHLORPROPAMIDE Negative ug/mL (75-250); GLIMEPIRIDE Negative ng/mL (80-250); GLIPIZIDE Negative ng/mL (200-1000); GLYBURIDE Negative ng/mL (UP TO 1500); NATEGLINIDE Negative ng/mL (UP TO 10000); REPAGLINIDE Negative ng/mL (UP TO 200); TOLAZAMIDE Negative ug/mL (UP TO 80); TOLBUTAMIDE Negative ug/mL (40-100)
[2016-11-28 05:00] VITALS: BP 149/68
[2016-11-28] MEDS: ISOSORBIDE DIN. (ISORDIL) 20 MG TAB PO SCH ×2 (06:27→12:52)
[2016-11-28] MEDS: **hydrALAZINE HCL** 25 MG TAB PO SCH ×2 (06:27→12:52)
[2016-11-28] MEDS: SODIUM CHLORIDE 0.9% INJ 10 ML SYR IV SCH (06:28)
[2016-11-28 06:56] LABS: MEAN CORPUSCULAR HEMOGLOBIN 27.7 pg (27.0-33.0); MEAN CORPUSCULAR HGB CONC 31.8 g/dl (32.0-36.5); MEAN CORPUSCULAR VOLUME 87.4 fl (80.0-96.0); RED CELL DISTRIBUTION WIDTH 14.9 % (11.5-14.5); WHITE BLOOD COUNT 5.5 K/mm3 (4.0-10.0)
[2016-11-28 07:15] LABS: ALBUMIN 2.6 GM/DL (3.2-5.2); ALBUMIN/GLOBULIN RATIO 0.67 (1.00-1.93); BILIRUBIN,TOTAL 0.3 MG/DL (0.2-1.0); CALCIUM LEVEL 8.5 MG/DL (8.8-10.2); CREATININE FOR GFR 2.33 MG/DL (0.70-1.30); GLOMERULAR FILTRATION RATE 29.5 (>42); MAGNESIUM LEVEL 2.3 MG/DL (1.8-2.4); POTASSIUM SERUM 4.6 MEQ/L (3.5-5.1); TOTAL PROTEIN 6.5 GM/DL (6.4-8.2)
[2016-11-28 08:00] VITALS: BP 161/67
[2016-11-28] MEDS: amLODIPine 5 MG TAB PO SCH (08:24)
[2016-11-28] MEDS: TORSEMIDE 20 MG TAB PO SCH (08:24)
[2016-11-28] MEDS: CLOPIDOGREL 75 MG TAB PO SCH (08:24)
[2016-11-28] MEDS: CARVedilol 6.25 MG TAB PO SCH (08:25)
[2016-11-28] MEDS: FERROUS SULFATE 325MG TAB PO SCH (08:25)
[2016-11-28] MEDS: ASPIRIN 325 MG TAB PO SCH (08:25)
[2016-11-28] MEDS: OMEPRAZOLE 20 MG CAP PO SCH (08:25)
[2016-11-28] MEDS: HumaLOG INSULIN (NovoLOG) PER UNIT SC SCH ×2 (08:26→12:52)
[2016-11-28] MEDS: NYSTATIN CREAM 15 GM TOP SCH (08:27)
[2016-11-28] MEDS: SILVER SULFADIAZINE 1% CR 50 GM JAR TOP SCH (08:27)
[2016-11-28] MEDS ORDERED: DEMA20TA6 PO (11:09)
[2016-11-28] MEDS ORDERED: ISOS20TAB PO (11:09)
[2016-11-28] MEDS ORDERED: FERR325T PO (11:09)
[2016-11-28] MEDS ORDERED: AMLO5TAB2 PO (11:09)
[2016-11-28] MEDS ORDERED: HYDR-4267 PO (11:09)
[2016-11-28] MEDS ORDERED: CARV6.25 PO (11:09)
[2016-11-28] MEDS ORDERED: INSULANT SC (11:09)
[2016-11-28 12:00] VITALS: BP 162/75
[2016-11-28] MEDS ORDERED: NYST-6 TOP (12:43)
[2016-11-28 12:52] VITALS: BP 162/75
--- NOTE | 2016-11-28 15:05 | IPN ---
DATE: 11/28/2016 SUBJECTIVE: Patient was seen and examined at the bedside today in the morning. He feels much better. He was actually sitting on the sofa. He is afebrile and hemodynamically stable. He denies any shortness of breath and renal function continues to improve. REVIEW OF SYSTEMS: Patient denies any fever, chills, rigors, headache, nausea, vomiting, chest pain, shortness of breath, pain abdomen, constipation, or diarrhea. Rest of review of systems is negative. OBJECTIVE: VITAL SIGNS: Temperature is 98 degrees Fahrenheit, blood pressure is 161/67, pulse is 66, respiratory rate of 18, saturating 95% on room air. INTAKE AND OUTPUT: Urine output recorded is 1.4 liters yesterday and 250 mL so far today since overnight. Weight in the bed scale is 90 kg today. PHYSICAL EXAMINATION: GENERAL: Patient is awake, alert and oriented times three, sitting in the sofa in no apparent distress. HEAD AND NECK EXAMINATION: Extraocular muscles intact. Pupils equally round and reactive to light. Mucous membranes are moist. Neck is supple. There is no jugular venous distention (JVD). Patient still has a triple lumen in the right internal jugular (IJ). CARDIOVASCULAR: S1, S2, regular rate. He has a grade 2/6 systolic ejection murmur. RESPIRATORY: Chest is clear to auscultation bilaterally. Bilateral equal air entry. No rales or rhonchi. ABDOMEN: Soft, positive bowel sounds, nontender. No ascites. No organomegaly. EXTREMITIES: No clubbing or cyanosis. The patient has bilateral dressings on the feet. CENTRAL NERVOUS SYSTEM (TUBE BUILDER): No focal neurological deficit. Power is 5/5 in all extremities. LABORATORY REVIEW: CBC showed a WBC of 5.5, hemoglobin 9.8, platelets are 185. BMP showed sodium 143, potassium 4.6, chloride 108, bicarbonate 29, BUN is 42, creatinine is 2.3 which is trending down, it was 2.5 yesterday, calcium is 8.5, albumin is 2.6. CURRENT MEDICATIONS: Patient's medications were all reviewed by me. His Percocet has been stopped. There is no other change in the medications today as compared with yesterday. ASSESSMENT: A 71-year-old male with a past medical history of diabetes mellitus type 2, chronic kidney disease stage III, congestive heart failure, and recent diabetic foot ulcers, admitted this time to intensive care unit (ICU) because of altered mental status, hypotension, and acute renal failure. PLAN: 1. Acute kidney injury superimposed on chronic kidney disease, stage III. Patient's renal function is nicely improving. His creatinine is down to 2.3 now. His baseline creatinine is 2. I am expecting full renal recovery to his baseline in the next one or two days. 2. Congestive heart failure. His volume status is optimized. Continue current dose of torsemide 20 mg by mouth daily. The rest of the changes in the diuretic regimen will be done as outpatient. 3. Hypertension. Patient is still slightly hypertensive. His antihypertensive regimen is being adjusted by cardiology service. He is currently on amlodipine 5 mg by mouth daily which was started yesterday, Coreg 6.25 mg by mouth twice a day, hydralazine 75 mg by mouth every eight hours, isosorbide 20 mg by mouth every eight hours. Rest of the management of antihypertensive regimen is as per cardiology service. I would not escalate the antihypertensives at this time because they have recently been increased in the last 2-3 days. I would wait for the medications to work for the next 3-4 days. 4. Iron deficiency anemia. Continue oral iron at this time. No IV iron was given because of the foot infection. 5. Hyperkalemia. His potassium levels are stable at around 4.6. Continue low-potassium diet at this time. Avoid angiotensin-converting enzyme (LESLY) inhibitors or angiotensin-receptor blockers. 6. Discharge planning. Patient needs to followup with nephrology about two weeks after discharge from the hospital. It is okay to discharge the patient from nephrology standpoint. His renal function is improving. Plan of care was discussed with the hospitalist team.
--- NOTE | 2016-11-28 15:30 | DS.PDOC ---
Discharge Summary General Date of Admission November 20, 2016 at 20:14 Date of Discharge 11/28/16 Specialist/Consultants Involve Dr. Mcpherson of Cardiology, Dr. Wiseman of Nephrology Discharge Summary PROCEDURES PERFORMED DURING STAY: None. ADMITTING DIAGNOSES: 1. . Acute decompensated systolic congestive heart failure 2. . Chronic kidney disease 3. . Hypoglycemia DISCHARGE DIAGNOSES: 1. . Acute decompensated systolic congestive heart failure 2. . Chronic kidney disease 3. . Hypoglycemia COMPLICATIONS/CHIEF COMPLAINT: Acute On Chronic Systolic(Congestive)Heart Failure. HISTORY OF PRESENT ILLNESS: . 71-year-old male with diabetes mellitus type 2, hypertension, hyperlipidemia, chronic systolic CHF, AICD, coronary artery disease with history of LA and CABG , PVD with history of bilateral femoropopliteal, CKD stage III who presented to the emergency department with a chief complaint of worsening shortness of breath and chest pain. At that time, the patient stated that laying flat made his shortness of breath worse, and he also noted increasing swelling in his lower extremities bilaterally. In the ER, the patient was noted to be in decompensated systolic congestive heart failure. He was started on IV Lasix and admitted to the hospital service for further evaluation and management. During hospitalization the patient's diuretic dosing and blood pressure medications were managed with the assistance of nephrology and cardiology. Since hospitalization the patient has diuresed a net negative of 2.3 L. At this time, the patient's volume status has significantly improved. In addition, during the patient's stay here in the hospital he has required a significant decrease in the dosing of his long-acting insulin. At baseline, the patient took 100 units of Lantus in the a.m. and 85 units of Lantus in the PM. However, he did suffer an episode of hypoglycemia here. Since then his insulin regimen has been adjusted and he is currently been requiring 10 units of insulin a day with a sliding scale. I'll place the patient on 10 L of Lantus every morning. I have asked the patient to follow-up with his blood sugar levels at home, and if they are persistently above 180 that he would need to uptitrate his insulin dosing and coordinate this with his primary care physician. At this time, the patient states that he is feeling markedly better and he is eager to return home. He has been seen by physical therapy here, and has been cleared to return home with a prescription for home physical therapy. I advised the patient to follow-up with cardiology and nephrology in the next 2-3 weeks for further adjustment of his blood pressure and diuretic medications. In addition I have also asked the patient follow-up with his primary care physician within one week for further evaluation and management of the patient's chronic medical comorbidities. DISCHARGE MEDICATIONS: Please see below. ALLERGIES: Please see below. PHYSICAL EXAMINATION ON DISCHARGE: VITAL SIGNS: Please see below. General Exam: Positive: Alert, Cooperative, No Acute Distress ENT Exam: Positive: Atraumatic, Mucous membr. moist/pink Neck Exam: Negative: JVD Chest Exam: Positive: Clear to auscultation, Normal air movement, Negative: Rales Heart Exam: Positive: Rate Normal, Normal S1, Normal S2 Telemetry: Positive: Sinus Abdomen Exam: Positive: Soft, Negative: Tenderness Extremity Exam: Negative: Tenderness, Swelling LABORATORY DATA: Please see below. IMAGING: REASON: Dyspnea, cough. COMPARISON: 10/18/2016. AP and lateral views were obtained. There is cardiomegaly. There has been previous median sternotomy status quo. Single chamber bipolar pacemaker device status quo. There is new left costophrenic angle blunting. Increased interstitial markings are seen throughout the lung ramos. IMPRESSION: Left pleural effusion and suspected interstitial edema with cardiomegaly. PROGNOSIS: Medically stable at this time, long-term prognosis poor ACTIVITY: As tolerated. DIET: . 2 g low sodium diet DISCHARGE PLAN: DISPOSITION: Home Health Service. DISCHARGE INSTRUCTIONS: 1. . Follow-up with primary care physician within one week 2. . Follow-up with nephrology, and cardiology within 2-3 weeks 3. . Follow-up with podiatry within 1-2 weeks for further management of chronic diabetic wounds 4. Medication changes during this admission discussed at length with the patient and his ex- who is at the bedside. DISCHARGE CONDITION: Stable. TIME SPENT ON DISCHARGE: Greater than 30 minutes. Vital Signs/I&Os Vital Signs Date Time Temp Pulse Resp B/P (MAP) Pulse Ox O2 Delivery O2 Flow Rate FiO2 11/28/16 12:52 162/75 11/28/16 12:00 98.3 70 20 96 Room Air 11/24/16 04:00 1.0 11/22/16 08:00 100 I&O- Last 24 Hours up to 6 AM 11/28/16 05:59 Intake Total 1000 ml Output Total 1250 ml Balance -250 ml Laboratory Data Labs 24H Laboratory Tests 2 11/27/16 16:43: Bedside Glucose (Misc Panel) 180H 11/27/16 20:11: Bedside Glucose (Misc Panel) 153H 11/28/16 06:21: Anion Gap 6L, Glomerular Filtration Rate 29.5L, Blood Urea Nitrogen 42H, Creatinine 2.33H, Sodium Level 143, Potassium Level 4.6, Chloride Level 108H, Carbon Dioxide Level 29, Calcium Level 8.5L, Aspartate Amino Transf (AST/SGOT) 10L, Alanine Aminotransferase (ALT/SGPT) 14, Alkaline Phosphatase 111, Total Bilirubin 0.3, Total Protein 6.5, Albumin 2.6L, Magnesium Level 2.3, Albumin/ Globulin Ratio 0.67L 11/28/16 06:26: Bedside Glucose (Misc Panel) 153H 11/28/16 12:48: Bedside Glucose (Misc Panel) 252H CBC/BMP Laboratory Tests 11/28/16 06:21 Red Blood Count 3.53 L, Mean Corpuscular Volume 87.4, Mean Corpuscular Hemoglobin 27.7, Mean Corpuscular Hemoglobin Concent 31.8 L, Red Cell Distribution Width 14.9 H, Calcium Level 8.5 L, Aspartate Amino Transf (AST/SGOT ) 10 L, Alanine Aminotransferase (ALT/SGPT) 14, Alkaline Phosphatase 111, Total Bilirubin 0.3, Total Protein 6.5, Albumin 2.6 L FSBS Laboratory Tests Test 11/27/16 16:43 11/27/16 20:11 11/28/16 06:26 11/28/16 12:48 Range/Units Bedside Glucose (Misc Panel) 180 153 153 252 83-110 MG/DL Discharge Medications Scheduled Amlodipine Besylate (Amlodipine Besylate) 5 Mg Tab, 5 MG PO DAILY Aspirin (Aspirin) 325 Mg Tab, 325 MG PO DAILY, (Reported) Calcium/Vitamin D (Oyster Shell Calcium 250+ 250-125 mg-Unit) 1 Tab Tab, 1 TAB PO BID, (Reported) Carvedilol (Carvedilol) 6.25 Mg Tab, 6.25 MG PO BID Clopidogrel Bisulfate (Clopidogrel) 75 Mg Tab, 75 MG PO DAILY, (Reported) Ferrous Sulfate (Ferrous Sulfate) 325 Mg Tab, 325 MG PO DAILY Hydralazine HCl (Hydralazine HCl) 50 Mg Tab, 50 MG PO TID Insulin Glargine (Lantus) 1 Units/0.01 Ml Susp, 10 UNITS SC QAM Isosorbide Dinitrate (Isosorbide Dinitrate) 20 Mg Tab, 20 MG PO Q8H Nystatin (Nystatin Oint) 1 Dose/15 Gm Oint, 0 TOP BID Omeprazole (Omeprazole) 40 Mg Cap, 40 MG PO DAILY, (Reported) Pregabalin (Lyrica) 150 Mg Cap, 150 MG PO BID, (Reported) Silver Sulfadiazine (Ssd) 1 % Cre, 1 DOSE TOP DAILY, (Reported) APPLY TO FEET Sucralfate (Sucralfate) 1 Gm Tab, 1 GM PO ACHS, (Reported) Torsemide (Demadex) 20 Mg Tab, 20 MG PO DAILY Scheduled PRN Albuterol Sulfate (Albuterol Sulfate) 2.5 Mg/3 Ml Nebu, 2.5 MG INH QID PRN for SHORTNESS OF BREATH, (Reported) Metoclopramide HCl (Metoclopramide HCl) 10 Mg Tab, 10 MG PO AC PRN for NAUSEA, ( Reported) Nitroglycerin (Nitrostat) 0.4 Mg Subl, 0.4 MG SL Q5MP PRN for CHEST PAIN, ( Reported) Oxycodone/Acetaminophen (Oxycodone/Acetaminophen 5-325 mg) 1 Tab Tab, 2 TAB PO Q8H PRN for PAIN, (Reported) Allergies Coded Allergies: TURKEY (Verified Adverse Reaction, Mild, VOMITING, 10/19/16) ALIRIO TORRES MD November 28, 2016 15:30
== END 2016-11-28 13:41 | disposition home health service (06) | DRG 291 ==
LOC: EDBD 15:52 → M ED 17:05 → M ED INP 20:14 → M PCU 11-21 12:09 → M ICU 11-22 14:17
PROVIDERS: ADMIT Hospitalist; ATTEND Internal Medicine
PROC: 02HV33Z Insertion of Infusion Device into Superior Vena Cava, Percutaneous Approach (ICD-10-PCS; 2016-11-22)
PROC: 0JCR0ZZ Extirpation of Matter from Left Foot Subcutaneous Tissue and Fascia, Open Approach (ICD-10-PCS; principal; 2016-11-27)
PROC: 0JCQ0ZZ Extirpation of Matter from Right Foot Subcutaneous Tissue and Fascia, Open Approach (ICD-10-PCS; 2016-11-27)
DX: I13.0 Hypertensive heart and chronic kidney disease with heart failure and stage 1 through stage 4 chronic kidney disease, or unspecified chronic kidney disease (principal); I50.23 Acute on chronic systolic (congestive) heart failure; G93.40 Encephalopathy, unspecified; J81.0 Acute pulmonary edema; N17.9 Acute kidney failure, unspecified; L97.429 Non-pressure chronic ulcer of left heel and midfoot with unspecified severity; L97.419 Non-pressure chronic ulcer of right heel and midfoot with unspecified severity; Z66 Do not resuscitate; N18.3 Chronic kidney disease, stage 3 (moderate); K81.1 Chronic cholecystitis; E11.649 Type 2 diabetes mellitus with hypoglycemia without coma; E87.5 Hyperkalemia; Z95.5 Presence of coronary angioplasty implant and graft; E11.621 Type 2 diabetes mellitus with foot ulcer; D63.8 Anemia in other chronic diseases classified elsewhere; E11.40 Type 2 diabetes mellitus with diabetic neuropathy, unspecified; I25.2 Old myocardial infarction; E78.5 Hyperlipidemia, unspecified; I25.10 Atherosclerotic heart disease of native coronary artery without angina pectoris; I73.9 Peripheral vascular disease, unspecified; Z79.4 Long term (current) use of insulin; Z79.899 Other long term (current) drug therapy; Z91.018 Allergy to other foods; Z82.49 Family history of ischemic heart disease and other diseases of the circulatory system; Z87.891 Personal history of nicotine dependence; Z95.810 Presence of automatic (implantable) cardiac defibrillator

== ENCOUNTER 2016-12-08 10:26 | Emergency (ER) | payer MEDICARE ==
[~2016-12-08] VITALS: Ht 170.2 cm; Wt 89.8 kg
[~2016-12-08 10:26] MED LIST changes: +AMLO5TAB2 PO; +BACT800T5 PO; +CARV6.25 PO; +FERR325T PO; +HYDR-4267 PO; +ISOS20TAB PO; +METO10TA2 PO; +NYST-6 TOP; +SILV50CR TOP; +SUCR1TAB56 PO
[2016-12-08] MEDS ORDERED: METO-207 PO (10:36)
[2016-12-08] MEDS ORDERED: WELC625T PO (10:36)
[2016-12-08] MEDS ORDERED: NS 500 ML IV ONE (11:15)
[2016-12-08 11:35] LABS: BASO # 0.1 K/mm3 (0.0-0.2); BASO % 0.7 % (0.0-1.0); EOS # 0.3 K/mm3 (0.0-0.50); LARGE UNSTAINED CELL # 0.1 K/mm3 (0.0-0.4); LARGE UNSTAINED CELL % 1.5 % (0.0-4.0); LYMPH # 1.3 K/mm3 (1.5-4.5); LYMPH % 14.4 % (24.0-44.0); MEAN CORPUSCULAR HEMOGLOBIN 27.7 pg (27.0-33.0); MEAN CORPUSCULAR HGB CONC 31.8 g/dl (32.0-36.5); MEAN CORPUSCULAR VOLUME 87.1 fl (80.0-96.0); MONO # 0.7 K/mm3 (0.0-0.8); MONO % 7.6 % (0.0-5.0); NEUTROPHILS # 6.4 K/mm3 (1.8-7.7); NEUTROPHILS % 72.8 % (36.0-66.0); PLATELET COUNT, AUTOMATED 218 k/mm3 (150-450); RED CELL DISTRIBUTION WIDTH 14.9 % (11.5-14.5); WHITE BLOOD COUNT 8.8 K/mm3 (4.0-10.0)
[2016-12-08 11:45] LABS: INR 1.12
[2016-12-08 11:58] LABS: ALBUMIN 3.1 GM/DL (3.2-5.2); ALBUMIN/GLOBULIN RATIO 0.76 (1.00-1.93); BILIRUBIN,DIRECT 0.1 MG/DL (0.0-0.2); BILIRUBIN,TOTAL 0.4 MG/DL (0.2-1.0); CALCIUM LEVEL 8.9 MG/DL (8.8-10.2); CREATININE FOR GFR 2.56 MG/DL (0.70-1.30); GLOMERULAR FILTRATION RATE 26.5 (>42); MAGNESIUM LEVEL 2.3 MG/DL (1.8-2.4); POTASSIUM SERUM 4.9 MEQ/L (3.5-5.1); TOTAL PROTEIN 7.2 GM/DL (6.4-8.2)
[2016-12-08 14:26] VITALS: BP 122/62
[2016-12-08] MEDS ORDERED: ZOFR4TAB3 PO (15:22)
== END 2016-12-08 15:48 | disposition home or self-care (01) ==
LOC: M ED 11:43
DX: R10.9 Unspecified abdominal pain (principal); R11.2 Nausea with vomiting, unspecified; R19.7 Diarrhea, unspecified

== ENCOUNTER 2017-01-07 18:43 | Inpatient (IN) | payer MEDICARE, MEDICAID ==
[~2017-01-07] VITALS: Ht 170.2 cm; Wt 94.9 kg
[~2017-01-07 18:43] MED LIST changes: +COLE625TAB PO; +FERR1TAB8 PO; -FERR325T PO; +HYDR-3911 PO; -HYDR-4267 PO; +KEFL500C17 PO; -KEFL500C7 PO; +LEVO500T3 PO; -LEVO500T32 PO; +LEVO750T13 PO; -LEVO750T33 PO; -METO-207 PO; +METO1TAB7 PO; +PLAV1TAB2 PO; -PLAV75TA38 PO; +ZOFR4TAB3 PO
[2017-01-07] MEDS ORDERED: ISOS20TAB GT (19:02)
[2017-01-07] MEDS ORDERED: ASPI81TA85 PO (19:02)
[2017-01-07] MEDS ORDERED: CARV12.5 PO (19:02)
[2017-01-07] MEDS ORDERED: FUROSEMIDE 100 MG/10 ML VIAL (J1940) IV ONE (19:15)
[2017-01-07] MEDS ORDERED: ASPIRIN 325 MG TAB PO ONE (19:15)
[2017-01-07] MEDS ORDERED: NITROGLYCERIN 2% OINT 1 GM *U/D* PKT TOP ONE (19:15)
[2017-01-07 19:24] LABS: BASO % 0.5 % (0.0-1.0); EOS # 0.1 K/mm3 (0.0-0.50); EOS % 2.2 % (0.0-3.0); LARGE UNSTAINED CELL # 0.1 K/mm3 (0.0-0.4); LARGE UNSTAINED CELL % 1.6 % (0.0-4.0); LYMPH # 1.2 K/mm3 (1.5-4.5); LYMPH % 17.6 % (24.0-44.0); MEAN CORPUSCULAR HEMOGLOBIN 26.8 pg (27.0-33.0); MEAN CORPUSCULAR VOLUME 89.2 fl (80.0-96.0); MONO # 0.5 K/mm3 (0.0-0.8); MONO % 8.4 % (0.0-5.0); NEUTROPHILS # 4.2 K/mm3 (1.8-7.7); NEUTROPHILS % 69.6 % (36.0-66.0); PLATELET COUNT, AUTOMATED 174 k/mm3 (150-450); RED CELL DISTRIBUTION WIDTH 16.1 % (11.5-14.5)
[2017-01-07 19:54] LABS: CALCIUM LEVEL 8.1 MG/DL (8.8-10.2); CREATININE FOR GFR 2.78 MG/DL (0.70-1.30); GLOMERULAR FILTRATION RATE 24.1 (>42)
[2017-01-07 20:00] LABS: POTASSIUM SERUM 5.9 MEQ/L (3.5-5.1)
[2017-01-07] MEDS ORDERED: SOD POLYSTYRENE SULFONATE SUSP 15 GM/60 ML UD PO ONE (20:15)
--- NOTE | 2017-01-07 20:15 | REP ---
Clinical: Chest pain. Technique: AP and lateral. Comparison: 11/25/2016. Findings: Cardiomegaly and evidence for prior sternotomy and pacemaker again noted. Lung ramos demonstrate chronic interstitial changes. Superimposed pulmonary vascular congestion/interstitial edema with left lower lobe opacity and small pleural effusions cannot be excluded. No pneumothorax. Skeletal structures intact. Impression: Cannot exclude pulmonary vascular congestion/interstitial edema with left lower lobe opacity and small pleural effusions. Signed by Erwin Rodriguez MD 01/07/2017 08:07 P
[2017-01-08] VITALS (11 sets, daily range): BP systolic 88–151; BP diastolic 40–82
[2017-01-08] MEDS ORDERED: ISOS20TAB PO (01:24)
[2017-01-08] MEDS ORDERED: INSULANT SC (01:24)
[2017-01-08] MEDS ORDERED: HYDR-3911 PO (01:29)
[2017-01-08] MEDS ORDERED: DEXTROSE 50% 50 ML SYRINGE IV PRN (01:30)
[2017-01-08] MEDS ORDERED: GLUCOSE 4 GM CHEW TABLET PO PRN (01:30)
[2017-01-08] MEDS ORDERED: GLUCAGON FOR INJ 1 MG VIAL (J1610) SC PRN (01:30)
[2017-01-08] MEDS ORDERED: ACETAMINOPHEN TAB 650MG DOSE (2X325MG) PO PRN (01:30)
[2017-01-08] MEDS ORDERED: PERCOCET 5MG/325MG TAB PO PRN (01:45)
[2017-01-08] MEDS ORDERED: ALBUTEROL SULFATE 2.5 MG/0.5 ML INH NEB SOLN INH PRN (01:45)
[2017-01-08] MEDS ORDERED: NITROGLYCERIN 0.4 MG SUBL TABLET SL PRN (01:45)
[2017-01-08 05:10] LABS: BASO % 0.5 % (0.0-1.0); EOS # 0.1 K/mm3 (0.0-0.50); EOS % 2.8 % (0.0-3.0); LARGE UNSTAINED CELL # 0.1 K/mm3 (0.0-0.4); LARGE UNSTAINED CELL % 1.8 % (0.0-4.0); LYMPH # 0.9 K/mm3 (1.5-4.5); LYMPH % 17.3 % (24.0-44.0); MEAN CORPUSCULAR HGB CONC 30.2 g/dl (32.0-36.5); MEAN CORPUSCULAR VOLUME 89.6 fl (80.0-96.0); MONO # 0.4 K/mm3 (0.0-0.8); MONO % 9.8 % (0.0-5.0); NEUTROPHILS % 67.8 % (36.0-66.0); PLATELET COUNT, AUTOMATED 155 k/mm3 (150-450); RED CELL DISTRIBUTION WIDTH 16.1 % (11.5-14.5); WHITE BLOOD COUNT 4.4 K/mm3 (4.0-10.0)
[2017-01-08 05:32] LABS: CREATININE FOR GFR 2.72 MG/DL (0.70-1.30); GLOMERULAR FILTRATION RATE 24.7 (>42)
[2017-01-08] MEDS: HEPARIN SOD (PORCINE) 5000 UNITS/ML VIAL SC SCH ×3 (06:04→22:23)
[2017-01-08] MEDS: ISOSORBIDE DIN. (ISORDIL) 20 MG TAB PO SCH ×2 (06:05→14:23)
--- NOTE | 2017-01-08 07:37 | ECGEPIP ---
Stationary ECG Study - ED Test Date: 2017-01-07 Pat Name: FRANK JAUREGUI Department: Room: [place] [address] Gender: M Physical Director: genaro : 1945 Requested By: Madi Hernandez Order Number: [id number] Reading MD: Deloris Garcia Measurements Intervals Barry Rate: 71 P: 50 NV: 198 QRS: 12 QRSD: 106 T: 137 QT: 416 QTc: 454 Interpretive Statements SINUS RHYTHM INFERIOR MYOCARDIAL INFARCTION, PROBABLY OLD MODERATE T-WAVE ABNORMALITY, CONSIDER LATERAL ISCHEMIA SIMILAR 01/07/17 18:58 Electronically Signed On 01-08-2017 7:37:18 EDT by Deloris Garcia
--- NOTE | 2017-01-08 07:37 | ECGEPIP ---
Stationary ECG Study [facility] - ED Test Date: 2017-01-07 Pat Name: FRANK JAUREGUI Department: Room: [place] [address] Gender: M Receiving Associate Store: kirill : 1945 Requested By: MOE FLORES Order Number: [id number] Reading MD: Deloris Garcia Measurements Intervals [place]aver Rate: 73 P: 55 MT: 188 QRS: 12 QRSD: 106 T: 151 QT: 413 QTc: 457 Interpretive Statements SINUS RHYTHM POSSIBLE LEFT ATRIAL ENLARGEMENT INFERIOR MYOCARDIAL INFARCTION, PROBABLY OLD MODERATE T-WAVE ABNORMALITY, CONSIDER LATERAL ISCHEMIA SIMILAR 11/23/16 Electronically Signed On 01-08-2017 7:36:56 EDT by Deloris Garcia
[2017-01-08] MEDS: HumaLOG INSULIN (NovoLOG) PER UNIT SC SCH ×4 (08:22→21:00)
[2017-01-08] MEDS: CLOPIDOGREL 75 MG TAB PO SCH (08:25)
[2017-01-08] MEDS: OMEPRAZOLE 20 MG CAP PO SCH (08:26)
[2017-01-08] MEDS: **hydrALAZINE** 50 MG TAB PO SCH ×2 (08:26→16:53)
[2017-01-08] MEDS: PANTOPRAZOLE 40MG TAB (PROTONIX) PO SCH (08:27)
[2017-01-08] MEDS: DOCUSATE SODIUM 100 MG CAP PO SCH ×2 (08:27→22:00)
[2017-01-08] MEDS: PREGABALIN 75 MG CAP(LYRICA) PO SCH ×2 (08:27→22:14)
[2017-01-08] MEDS: ASPIRIN 81 MG ENTERIC TAB PO SCH (08:29)
[2017-01-08] MEDS ORDERED: FUROSEMIDE 100 MG/10 ML VIAL (J1940) IV SCH (09:00)
[2017-01-08] MEDS ORDERED: CARVedilol 12.5 MG TAB PO SCH (09:00)
[2017-01-08] MEDS ORDERED: LEVEMIR (INSULIN DETEMIR) 1 UNITS/0.01ML SC SCH (09:00)
[2017-01-08] MEDS ORDERED: DEXTROSE 50% 50 ML SYRINGE IV STA (18:47)
[2017-01-08] MEDS ORDERED: SODIUM CHLORIDE 0.9% 1000 ML IV ONE (19:00)
--- NOTE | 2017-01-08 21:33 | HPE ---
DATE OF ADMISSION: 01/08/2017 ATTENDING PHYSICIAN: Dr. Rosales. INDUSTRY SEGMENT SPECIALIST: Dr. Mcpherson. PRIMARY CARE PROVIDER: Nurse practitioner, Iliana Barragan. CHIEF COMPLAINT: Chest heaviness, as well as bilateral lower extremity swelling. HISTORY OF PRESENT ILLNESS: This patient is a 71-year-old white male with multiple chronic medical conditions including congestive heart failure (CHF). Mr. Drake came today to the hospital for evaluation of above complaints. History is provided by himself, as well as by the chart. Actually, the patient had been hospitalized here recently back to November 20, 2016, for CHF exacerbation. Per him, after discharge back home, he was doing okay initially. However, he said he feels fatigue and bilateral lower extremity swelling getting worse again in the last few days. Actually, he saw Dr. Mcpherson on last Friday and was told he had fluid retention. However, his Lasix was discontinued by core drier per him. Anyway, since yesterday he said he had some chest heaviness and trouble breathing and decided to come to the emergency room (ER) for further evaluation. In the ER, his initial workup was not significant. He was given intravenous (IV) 80 mg of Lasix and planned to discharge home. However, the patient continued to not feeling good and so medicine service called for admission. REVIEW OF SYSTEMS: Denies fever. No chills. No headache, no blurry vision. Positive exertional chest heaviness and shortness of breath, but no coughing, no nausea, no vomiting, no real chest pain. No abdominal pain. No diarrhea. No tingling, numbness, weakness in arms or lower extremities bilaterally. Was some swelling in bilateral lower extremities. All other systems reviewed and negative. PAST MEDICAL HISTORY: 1. Coronary artery disease status post stenting and status post coronary artery bypass graft (CABG). 2. Hypertension. 3. Lower extremity edema. 4. Type 2 diabetes. 5. Congestive heart failure (CHF), ejection fraction (EF) is 32-35%. 6. Peripheral vascular disease with bilateral femoral popliteal bypass. 7. Chronic kidney disease (CKD) stage III. 8. Chronic anemia. PAST SURGICAL HISTORY: 1. Coronary stent. 2. Bilateral femoral popliteal bypass. 3. CABG. 4. Automatic implantable cardioverter defibrillator (AICD) placement. ALLERGIES: No known drug allergies SOCIAL HISTORY: Remote smoker of cigarettes, but quit four years ago. No alcohol, no drug abuse. He lives by himself and he is a FULL CODE. FAMILY HISTORY: Positive for hypertension, carotid disease. MEDICATIONS: Reviewed. PHYSICAL EXAMINATION: VITAL SIGNS: Temperature 98, heart rate 70, respirations 14, blood pressure 136/64, and oxygen saturation 98% on two liters oxygen supplement. GENERAL: He is awake, alert, oriented times three. He is in mild respiratory distress. HEENT: Atraumatic. Pupils equal, round, and reactive to light. Ears, nose and throat are normal. LUNGS: Bibasilar small crackles. No wheezing. HEART: S1, S2. Regular. No murmur. ABDOMEN: Soft. Bowel sounds positive. Mild distention but nontender. EXTREMITIES: Lower extremities have +2 edema in bilateral lower extremities. NEUROLOGIC: Nonfocal. SKIN: No rash. PSYCHOLOGIC: No acute psychosis. DIAGNOSTIC LABORATORY STUDIES: CBC and differential showed WBC 6, hemoglobin and hematocrit 8.5 over 28.5, platelets 174. Sodium 137, potassium 5.9, chloride 110, bicarbonate 23, BUN 65, creatinine 2.7, glucose 109. BNP is up to 1760. Tests reviewed. IMPRESSION: 1. Acute on chronic systolic congestive heart failure exacerbation. 2. Type 2 diabetes. 3. Hypertension. 4. Dyslipidemia. 5. Carotid disease. 6. Chronic anemia. 7. Chronic kidney disease stage III. 8. Mild hyperkalemia. PLAN: The patient will be admitted to the progressive care unit (PCU) for inpatient treatment. I will start him on IV Lasix. Will consult cardiology. He has two sets negative troponin which ruled out acute myocardial infarction (OR), and he has worsening chronic anemia, and will followup. He may need a blood transfusion. Otherwise, will continue his most home medications. Dr. Rosales will followup tomorrow. [facility]ITALJocelyn
--- NOTE | 2017-01-08 21:55 | IPNPDOC ---
Date Seen The patient was seen on 01/08/17. Progress Note Subjective: Mr. Drake was seen and evaluated at bedside this morning. He states that he is feeling significantly better after having been diuresed. He is actually asking if he can go home at this time. Otherwise, he denies any shortness of breath, chest discomfort, palpitations, or swelling in the feet or the ankles. He did state that his face was a little bit swollen last night, but that this is resolved now. Otherwise, the remainder of his review of systems is negative. Objective: General: Awake, alert, oriented 3. He is in no apparent distress. HEENT: Head normocephalic, atraumatic, sclera are nonicteric. Hearing is grossly intact to conversation. Respiratory: Clear to auscultation bilaterally with no wheezes, rales, or rhonchi. Cardiovascular: Regular rate and rhythm, with no rubs, gallops, or murmur. Abdomen: Soft, nontender, nondistended, no hepatosplenomegaly appreciated. Bowel sounds present. Extremities: 2+ pulses in the radial and dorsalis pedis bilaterally. No evidence of clubbing or cyanosis. Assessment: 1. Acute exacerbation of chronic systolic congestive heart failure 2. Type 2 diabetes mellitus 3. Hypertension 4. Dyslipidemia 5. Carotid artery disease 6. Chronic anemia 7. Chronic kidney disease stage III, baseline creatinine is approximately 2-2.3 8. Mild hyperkalemia upon admission, now resolved 9. Hypothyroidism Plan: The patient has an elevated TSH with a borderline low free T4, we will start him on 25 MCG of levothyroxine, and recommend that he have outpatient follow-up in 4-6 weeks with his primary care provider. We will decrease his dose of Lasix from 80 IV q12 to 40 IV every 12 hours at this time. VS, I&O, 24H, Fishbone Vital Signs/I&O Vital Signs Date Time Temp Pulse Resp B/P (MAP) Pulse Ox O2 Delivery O2 Flow Rate FiO2 01/08/17 19:02 71 22 114/61 (78) 97 Nasal Cannula 2.0 01/08/17 18:45 97.7 Laboratory Data 24H LABS Laboratory Tests 2 01/07/17 22:43: Total Creatine Kinase 113, Creatine Kinase MB 5.3H, Creatine Kinase MB Relative Index 4.69H, Troponin I 0.08# 01/08/17 03:17: Bedside Glucose (Misc Panel) 187H 01/08/17 04:47: Total Creatine Kinase 110, Creatine Kinase MB 5.4H, Creatine Kinase MB Relative Index 4.90H, Troponin I 0.10#, White Blood Count 4.4, Red Blood Count 3.05L, Hemoglobin 8.2L, Hematocrit 27.3L, Mean Corpuscular Volume 89.6, Mean Corpuscular Hemoglobin 27.0, Mean Corpuscular Hemoglobin Concent 30.2L, Red Cell Distribution Width 16.1H, Platelet Count 155, Neutrophils (%) (Auto) 67.8H , Lymphocytes (%) (Auto) 17.3L, Monocytes (%) (Auto) 9.8H, Eosinophils (%) (Auto ) 2.8, Basophils (%) (Auto) 0.5, Neutrophils # (Auto) 3.0, Lymphocytes # (Auto) 0.9L, Monocytes # (Auto) 0.4, Eosinophils # (Auto) 0.1, Basophils # (Auto) 0.0, Large Unclassified Cells % 1.8, Large Unclassified Cells # 0.1, Anion Gap 4L, Glomerular Filtration Rate 24.7L, Blood Urea Nitrogen 68H, Creatinine 2.72H, Sodium Level 141, Potassium Level 5.0, Chloride Level 111H, Carbon Dioxide Level 26, Calcium Level 8.0L 01/08/17 12:02: Bedside Glucose (Misc Panel) 165H 01/08/17 16:46: Bedside Glucose (Misc Panel) 62L 01/08/17 18:39: Bedside Glucose (Misc Panel) 100 01/08/17 20:11: Bedside Glucose (Misc Panel) 134H CBC/BMP Laboratory Tests 01/08/17 04:47 Red Blood Count 3.05 L, Mean Corpuscular Volume 89.6, Mean Corpuscular Hemoglobin 27.0, Mean Corpuscular Hemoglobin Concent 30.2 L, Red Cell Distribution Width 16.1 H, Neutrophils (%) (Auto) 67.8 H, Lymphocytes (%) (Auto ) 17.3 L, Monocytes (%) (Auto) 9.8 H, Eosinophils (%) (Auto) 2.8, Basophils (%) (Auto) 0.5, Neutrophils # (Auto) 3.0, Lymphocytes # (Auto) 0.9 L, Monocytes # ( Auto) 0.4, Eosinophils # (Auto) 0.1, Basophils # (Auto) 0.0, Calcium Level 8.0 L , Total Creatine Kinase 110 01/08/17 12:16 GME ATTESTATION GME ATTESTATION My preceptor for this patient encounter was physically present in the building during the encounter and was fully available. As needed, all aspects of the patient interview, examination, medical decision making process, and medical care plan development were reviewed and approved by the preceptor. Preceptor is aware and concurs with the plan as stated in the body of this note and will attest to such by his/her cosignature. ATTENDING NOTE I, Pj Carrera, have both independently examined this patient as well as reviewed the documentation. I have discussed in detail with the resident the findings and plan of treatment as documented in the residents documentation. I will continue to follow the patient and offer further guidance to the patients care as necessary. DENYS TOUSSAINT DO Jan 08, 2017 21:54 PJ CARRERA MD Jan 27, 2017 14:10
[2017-01-08] MEDS: CARVedilol 6.25 MG TAB PO SCH (22:14)
[2017-01-08] MEDS: FUROSEMIDE 100 MG/10 ML VIAL (J1940) IV SCH (22:23)
[2017-01-09 03:25] VITALS: BP 146/58
[2017-01-09] MEDS: LEVOTHYROXINE 25MCG TABLET (0.025MG) PO SCH (06:43)
[2017-01-09] MEDS: HEPARIN SOD (PORCINE) 5000 UNITS/ML VIAL SC SCH ×3 (06:44→21:29)
[2017-01-09 07:09] LABS: BASO % 0.4 % (0.0-1.0); EOS # 0.1 K/mm3 (0.0-0.50); EOS % 1.9 % (0.0-3.0); LARGE UNSTAINED CELL # 0.1 K/mm3 (0.0-0.4); LARGE UNSTAINED CELL % 2.1 % (0.0-4.0); LYMPH # 0.9 K/mm3 (1.5-4.5); LYMPH % 13.9 % (24.0-44.0); MEAN CORPUSCULAR HGB CONC 30.2 g/dl (32.0-36.5); MEAN CORPUSCULAR VOLUME 89.3 fl (80.0-96.0); MONO # 0.6 K/mm3 (0.0-0.8); NEUTROPHILS % 71.7 % (36.0-66.0); PLATELET COUNT, AUTOMATED 152 k/mm3 (150-450); RED CELL DISTRIBUTION WIDTH 16.3 % (11.5-14.5); WHITE BLOOD COUNT 5.6 K/mm3 (4.0-10.0)
[2017-01-09] MEDS: HumaLOG INSULIN (NovoLOG) PER UNIT SC SCH ×4 (07:30→21:00)
[2017-01-09 07:31] LABS: ALBUMIN 2.9 GM/DL (3.2-5.2); ALBUMIN/GLOBULIN RATIO 0.67 (1.00-1.93); BILIRUBIN,TOTAL 0.3 MG/DL (0.2-1.0); CALCIUM LEVEL 8.4 MG/DL (8.8-10.2); CREATININE FOR GFR 3.4 MG/DL (0.70-1.30); GLOMERULAR FILTRATION RATE 19.1 (>42); POTASSIUM SERUM 4.9 MEQ/L (3.5-5.1); TOTAL PROTEIN 7.2 GM/DL (6.4-8.2)
[2017-01-09 08:00] VITALS: BP 124/74
[2017-01-09] MEDS: PREGABALIN 75 MG CAP(LYRICA) PO SCH ×2 (09:13→21:00)
[2017-01-09] MEDS: OMEPRAZOLE 20 MG CAP PO SCH (09:13)
[2017-01-09] MEDS: ASPIRIN 81 MG ENTERIC TAB PO SCH (09:13)
[2017-01-09] MEDS: DOCUSATE SODIUM 100 MG CAP PO SCH ×2 (09:13→21:00)
[2017-01-09] MEDS: CLOPIDOGREL 75 MG TAB PO SCH (09:13)
[2017-01-09] MEDS: CARVedilol 6.25 MG TAB PO SCH ×2 (09:14→21:00)
[2017-01-09] MEDS: FUROSEMIDE 100 MG/10 ML VIAL (J1940) IV SCH (09:17)
--- NOTE | 2017-01-09 09:19 | IPNPDOC ---
Text Note Date of Service The patient was seen on 01/09/17. NOTE Subjective: Patient seen and examined at bedside. Anxious to return home. No new medical complaints. Objective: General: Awake, alert, oriented 3. He is in no apparent distress. HEENT: Head normocephalic, atraumatic, sclera are nonicteric. Hearing is grossly intact to conversation. Respiratory: Clear to auscultation bilaterally with no wheezes, rales, or rhonchi. Cardiovascular: Regular rate and rhythm, with no rubs, gallops, or murmur. Abdomen: Soft, nontender, nondistended, no hepatosplenomegaly appreciated. Bowel sounds present. Extremities: 2+ pulses in the radial and dorsalis pedis bilaterally. No evidence of clubbing or cyanosis. Assessment: 1. Acute exacerbation of chronic systolic congestive heart failure 2. Type 2 diabetes mellitus 3. Hypertension 4. Dyslipidemia 5. Carotid artery disease 6. Chronic anemia 7. Chronic kidney disease stage III, baseline creatinine is approximately 2-2.3 8. Mild hyperkalemia upon admission, now resolved 9. Hypothyroidism Plan: Titrate/taper lasix to PO. PT eval. VS,Fishbone, I+O VS, Fishbone, I+O Laboratory Tests 01/08/17 12:16 01/09/17 06:53 Red Blood Count 3.13 L, Mean Corpuscular Volume 89.3, Mean Corpuscular Hemoglobin 27.0, Mean Corpuscular Hemoglobin Concent 30.2 L, Red Cell Distribution Width 16.3 H, Neutrophils (%) (Auto) 71.7 H, Lymphocytes (%) (Auto ) 13.9 L, Monocytes (%) (Auto) 10.0 H, Eosinophils (%) (Auto) 1.9, Basophils (% ) (Auto) 0.4, Neutrophils # (Auto) 4.0, Lymphocytes # (Auto) 0.9 L, Monocytes # (Auto) 0.6, Eosinophils # (Auto) 0.1, Basophils # (Auto) 0.0, Calcium Level 8.4 L, Aspartate Amino Transf (AST/SGOT) 16, Alanine Aminotransferase (ALT/SGPT) 38 , Alkaline Phosphatase 236 H, Total Bilirubin 0.3, Total Protein 7.2, Albumin 2.9 L Vital Signs Date Time Temp Pulse Resp B/P (MAP) Pulse Ox O2 Delivery O2 Flow Rate FiO2 01/09/17 08:00 97.8 68 20 124/74 (91) 92 Room Air 01/08/17 19:02 2.0 I&O- Last 24 Hours up to 6 AM 01/09/17 06:00 Intake Total 1350 ml Output Total 1750 ml Balance -400 ml LULU SHELTON MD Jan 09, 2017 09:19
[2017-01-09] MEDS: PANTOPRAZOLE 40MG TAB (PROTONIX) PO SCH (10:45)
[2017-01-09 12:00] VITALS: BP 122/54
[2017-01-09 16:00] VITALS: BP 128/57
[2017-01-09 20:21] VITALS: BP 131/59
[2017-01-09] MEDS ORDERED: FUROSEMIDE 40 MG/4 ML VIAL (J1940) IV SCH (21:00)
[2017-01-10] VITALS (7 sets, daily range): BP systolic 123–154; BP diastolic 59–85
[2017-01-10 05:45] LABS: MEAN CORPUSCULAR HEMOGLOBIN 27.4 pg (27.0-33.0); MEAN CORPUSCULAR VOLUME 88.2 fl (80.0-96.0); RED CELL DISTRIBUTION WIDTH 16.6 % (11.5-14.5); WHITE BLOOD COUNT 5.5 K/mm3 (4.0-10.0)
[2017-01-10] MEDS: HEPARIN SOD (PORCINE) 5000 UNITS/ML VIAL SC SCH ×3 (05:50→21:04)
[2017-01-10] MEDS: LEVOTHYROXINE 25MCG TABLET (0.025MG) PO SCH (05:50)
[2017-01-10 06:55] LABS: CALCIUM LEVEL 8.2 MG/DL (8.8-10.2); CREATININE FOR GFR 3.4 MG/DL (0.70-1.30); GLOMERULAR FILTRATION RATE 19.1 (>42)
[2017-01-10] MEDS: HumaLOG INSULIN (NovoLOG) PER UNIT SC SCH ×4 (08:53→21:00)
[2017-01-10] MEDS: ASPIRIN 81 MG ENTERIC TAB PO SCH (08:53)
[2017-01-10] MEDS: DOCUSATE SODIUM 100 MG CAP PO SCH ×2 (08:53→21:05)
[2017-01-10] MEDS: CLOPIDOGREL 75 MG TAB PO SCH (08:53)
[2017-01-10] MEDS: OMEPRAZOLE 20 MG CAP PO SCH (08:54)
[2017-01-10] MEDS: PREGABALIN 75 MG CAP(LYRICA) PO SCH ×2 (08:54→21:04)
[2017-01-10] MEDS: CARVedilol 6.25 MG TAB PO SCH ×2 (08:54→21:05)
--- NOTE | 2017-01-10 14:57 | IPNPDOC ---
Date Seen The patient was seen on 01/10/17. Progress Note Subjective: Mr. Drake was seen and evaluated at bedside this morning. He states that he continues to feel well, and he asks if he may go home. Per the notes from physical therapy however, he has been too fatigued to even participate. He was informed that if he is unable to participate with PT, he is not a candidate for discharge. He states that he will be much more willing to participate with him today, and hopefully we can get a better evaluation of his functional status. Otherwise, he denies any shortness of breath, chest discomfort, palpitations, nausea, vomiting, diarrhea, or pain in his feet, or any rales. Otherwise, the remainder of his review of systems is negative. Objective: General: Awake, alert, oriented 3. He is in no apparent distress. He is able to sit up easily when asked to do so. HEENT: Head normocephalic, atraumatic, sclera are nonicteric. Hearing is grossly intact to conversation. Respiratory: Clear to auscultation bilaterally with no wheezes, rales, or rhonchi. Cardiovascular: Regular rate and rhythm, with no rubs, gallops, or murmur. Abdomen: Soft, nontender, nondistended, no hepatosplenomegaly appreciated. Bowel sounds present. Extremities: 2+ pulses in the radial and dorsalis pedis bilaterally. No evidence of clubbing or cyanosis. Bilateral wounds on his heels appear to be less macerated today, there is no surrounding erythema. Assessment: 1. Acute exacerbation of chronic systolic congestive heart failure 2. Type 2 diabetes mellitus 3. Hypertension 4. Dyslipidemia 5. Carotid artery disease 6. Chronic anemia 7. Chronic kidney disease stage III, baseline creatinine is approximately 2-2.3 8. Mild hyperkalemia upon admission, now resolved 9. Hypothyroidism Plan: His BUN and creatinine have been increasing. I think that he has been sufficiently diuresed, therefore we will hold off on any diuretics for today, and begin him on oral Lasix tomorrow. Hopefully he will participate with physical therapy today such that we may be able to better determine his functional status. VS, I&O, 24H, Fishbone Vital Signs/I&O Vital Signs Date Time Temp Pulse Resp B/P (MAP) Pulse Ox O2 Delivery O2 Flow Rate FiO2 01/10/17 11:35 97.5 96 20 153/70 (97) 100 Room Air 01/10/17 07:15 2.0 I&O- Last 24 Hours up to 6 AM 01/10/17 06:00 Intake Total 1100 ml Output Total 650 ml Balance 450 ml Laboratory Data 24H LABS Laboratory Tests 2 01/09/17 16:51: Bedside Glucose (Misc Panel) 148H 01/09/17 21:32: Bedside Glucose (Misc Panel) 177H 01/10/17 05:06: Anion Gap 10, Glomerular Filtration Rate 19.1L, Blood Urea Nitrogen 78H, Creatinine 3.40H, Sodium Level 142, Potassium Level 5.0, Chloride Level 110H, Carbon Dioxide Level 22, Calcium Level 8.2L 01/10/17 11:31: Bedside Glucose (Misc Panel) 190H CBC/BMP Laboratory Tests 01/10/17 05:06 Red Blood Count 3.05 L, Mean Corpuscular Volume 88.2, Mean Corpuscular Hemoglobin 27.4, Mean Corpuscular Hemoglobin Concent 31.0 L, Red Cell Distribution Width 16.6 H, Calcium Level 8.2 L DENYS TOUSSAINT DO Jan 10, 2017 14:57
[2017-01-11 02:00] VITALS: BP 159/68
[2017-01-11] MEDS: LEVOTHYROXINE 25MCG TABLET (0.025MG) PO SCH (05:49)
[2017-01-11] MEDS: HEPARIN SOD (PORCINE) 5000 UNITS/ML VIAL SC SCH (05:49)
[2017-01-11 06:20] VITALS: BP 150/70
[2017-01-11 06:29] LABS: MEAN CORPUSCULAR HGB CONC 31.5 g/dl (32.0-36.5); MEAN CORPUSCULAR VOLUME 88.9 fl (80.0-96.0); RED CELL DISTRIBUTION WIDTH 16.7 % (11.5-14.5); WHITE BLOOD COUNT 6.1 K/mm3 (4.0-10.0)
[2017-01-11 06:56] LABS: CALCIUM LEVEL 8.1 MG/DL (8.8-10.2); CREATININE FOR GFR 2.94 MG/DL (0.70-1.30); GLOMERULAR FILTRATION RATE 22.6 (>42); POTASSIUM SERUM 4.9 MEQ/L (3.5-5.1)
[2017-01-11] MEDS: CLOPIDOGREL 75 MG TAB PO SCH (08:31)
[2017-01-11] MEDS: HumaLOG INSULIN (NovoLOG) PER UNIT SC SCH (08:31)
[2017-01-11] MEDS: ASPIRIN 81 MG ENTERIC TAB PO SCH (08:31)
[2017-01-11] MEDS: OMEPRAZOLE 20 MG CAP PO SCH (08:31)
[2017-01-11] MEDS: DOCUSATE SODIUM 100 MG CAP PO SCH (08:31)
[2017-01-11] MEDS: PREGABALIN 75 MG CAP(LYRICA) PO SCH (08:32)
[2017-01-11 08:34] VITALS: BP 139/63
[2017-01-11] MEDS: CARVedilol 6.25 MG TAB PO SCH (08:34)
[2017-01-11] MEDS ORDERED: FUROSEMIDE 40 MG TAB PO SCH (09:00)
[2017-01-11] MEDS ORDERED: LEVO25TA5 PO (09:35)
--- NOTE | 2017-01-11 11:58 | DS.PDOC ---
Discharge Summary General Date of Admission Jan 08, 2017 at 01:16 Date of Discharge 01/11/2017 Discharge Summary PRIMARY CARE PHYSICIAN: Iliana Barragan ATTENDING AT TIME OF DISCHARGE: Dr. Palomo Grijalva DISCHARGE DIAGNOS(E)S: 1. Acute exacerbation of chronic systolic congestive heart failure 2. Type 2 diabetes mellitus 3. Hypertension 4. Dyslipidemia 5. Carotid artery disease 6. Chronic anemia 7. Chronic kidney disease stage III, baseline creatinine is approximately 2-2.3 8. Mild hyperkalemia upon admission, now resolved 9. Hypothyroidism 10. Bilateral lower extremity diabetic ulcers on the heels HPI & HOSPITAL COURSE: Mr. Drake is a 71-year-old male who was admitted to the hospital for acute exacerbation of chronic systolic congestive heart failure. His hospitalization was fairly benign, consisting mainly of diuresis. He was seen and evaluated by physical therapy who stated that he did quite well in their evaluation, but recommended that he continue with home services upon discharge. He did have one episode of unresponsiveness with hypotension, however he was aroused within a few minutes or so, and his blood pressure improved without treatment, he states that he is a very deep sleeper, and this has been known to occur on occasion. Otherwise, the wounds on his heels did appear slightly macerated upon arrival , therefore they were treated with alginate and foam dressings, and continued to have looked well throughout his hospitalization. His thyroid function studies were checked and he was found to be hypothyroid , therefore he was initiated on 25 MCG of levothyroxine, and it is recommended that he have follow-up labs performed in 4-6 weeks to evaluate the efficacy of this dose. PHYSICAL EXAMINATION ON DISCHARGE: GENERAL: Awake, alert, oriented 3. He is in no acute distress. He is requesting to go home. CARDIOVASCULAR EXAMINATION: Regular rate and rhythm, with no rubs, gallops, or murmur. RESPIRATORY EXAMINATION: Clear to auscultation bilaterally with no wheezes, rales, or rhonchi. ABDOMINAL EXAMINATION: Soft, nontender, nondistended. Bowel sounds present. EXTREMITIES: No clubbing or edema noted. 2+ pulses in the radial bilaterally. Bilateral heel ulcers did not have any surrounding erythema or edema today. DISPOSITION: Home with services DISCHARGE INSTRUCTIONS: Follow-up with primary care provider Iliana Barragan within 7-10 days. Recommend routine follow-up with Dr. Andrei brooks life claims examiner regarding his bilateral heel ulcers. If symptoms return, or if you experience worsening of your symptoms, please call your doctor or return to the emergency department. ITEMS THAT NEED OUTPATIENT FOLLOWUP: He will need a repeat TSH in about 4-6 weeks to evaluate the efficacy of his Synthroid dosing. He was instructed to grape picker the prescription of Lasix ( furosemide) that was already prescribed by his professional skater Dr. Mcpherson, but was not picked up prior to this hospitalization. Otherwise, continue with recommendations per home PT, and continue with wound care per Dr. Forbes. My preceptor for this patient encounter was physically present in the building during the encounter and was fully available. As needed, all aspects of the patient interview, examination, medical decision making process, and medical care plan development were reviewed and approved by the preceptor. Preceptor is aware and concurs with the plan as stated in the body of this note and will attest to such by his/her cosignature. Vital Signs/I&Os Vital Signs Date Time Temp Pulse Resp B/P (MAP) Pulse Ox O2 Delivery O2 Flow Rate FiO2 01/11/17 08:34 65 139/63 01/11/17 08:30 Room Air 01/11/17 06:20 98.4 17 92 01/10/17 07:15 2.0 I&O- Last 24 Hours up to 6 AM 01/11/17 06:00 Intake Total 1840 ml Output Total 575 ml Balance 1265 ml Laboratory Data Labs 24H Laboratory Tests 2 01/10/17 17:23: Bedside Glucose (Misc Panel) 273H 01/10/17 20:29: Bedside Glucose (Misc Panel) 126H 01/11/17 05:52: Anion Gap 6L, Glomerular Filtration Rate 22.6L, Blood Urea Nitrogen 71H, Creatinine 2.94H, Sodium Level 141, Potassium Level 4.9, Chloride Level 110H, Carbon Dioxide Level 25, Calcium Level 8.1L CBC/BMP Laboratory Tests 01/11/17 05:52 Red Blood Count 3.09 L, Mean Corpuscular Volume 88.9, Mean Corpuscular Hemoglobin 28.0, Mean Corpuscular Hemoglobin Concent 31.5 L, Red Cell Distribution Width 16.7 H, Calcium Level 8.1 L FSBS Laboratory Tests Test 01/10/17 17:23 6/30/17 20:29 Range/Units Bedside Gl[facility] ([facility]) 273 126 83-110 MG/DL Discharge Medications Scheduled Aspirin (Aspir-81) 81 Mg Tab, 81 MG PO DAILY, (Reported) Calcium/Vitamin D (Oyster Shell Calcium 250+ 250-125 mg-Unit) 1 Tab Tab, 1 TAB PO BID, (Reported) Carvedilol (Carvedilol) 12.5 Mg Tab, 12.5 MG PO BID, (Reported) Clopidogrel Bisulfate (Clopidogrel) 75 Mg Tab, 75 MG PO DAILY, (Reported) Hydralazine HCl (Hydralazine HCl) 50 Mg Tab, 50 MG PO TID, (Reported) Insulin Glargine (Lantus) 1 Units/0.01 Ml Susp, 10 UNITS SC QAM, (Reported) Isosorbide Dinitrate (Isosorbide Dinitrate) 20 Mg Tab, 20 MG PO Q8H, (Reported) Levothyroxine Sodium (Synthroid) 25 Mcg Tab, 25 MCG PO DAILY@06 Omeprazole (Omeprazole) 40 Mg Cap, 40 MG PO DAILY, (Reported) Pregabalin (Lyrica) 150 Mg Cap, 150 MG PO BID, (Reported) Scheduled PRN Albuterol Sulfate (Albuterol Sulfate) 2.5 Mg/3 Ml Nebu, 2.5 MG INH QID PRN for SHORTNESS OF BREATH, (Reported) Nitroglycerin (Nitrostat) 0.4 Mg Subl, 0.4 MG SL Q5MP PRN for CHEST PAIN, ( Reported) Oxycodone/Acetaminophen (Oxycodone/Acetaminophen 5-325 mg) 1 Tab Tab, 2 TAB PO Q8H PRN for PAIN, (Reported) Allergies Coded Allergies: TURKEY (Verified Adverse Reaction, Mild, VOMITING, 10/19/16) GME ATTESTATION GME ATTESTATION My preceptor for this patient encounter was physically present in the building during the encounter and was fully available. As needed, all aspects of the patient interview, examination, medical decision making process, and medical care plan development were reviewed and approved by the preceptor. Preceptor is aware and concurs with the plan as stated in the body of this note and will attest to such by his/her cosignature. ATTENDING NOTE I saw and evaluated the patient. I agree with the findings and the plan of care as documented in the residents note. DENYS Mars MD, DO Jan 11, 2017 11:58 PALOMO GRIJALVA MD Jan 12, 2017 06:37
[2017-05-09] MEDS ORDERED: ZOFR4TAB3 PO (21:52)
== END 2017-01-11 11:47 | disposition home health service (06) | DRG 291 ==
LOC: M ED 18:43 → M ED INP 01-08 01:16 → M PCU 01-08 02:24 → M MSPAV 01-10 23:10
PROVIDERS: ADMIT Hospitalist; ATTEND Hospitalist
DX: I13.0 Hypertensive heart and chronic kidney disease with heart failure and stage 1 through stage 4 chronic kidney disease, or unspecified chronic kidney disease (principal); I50.23 Acute on chronic systolic (congestive) heart failure; L97.429 Non-pressure chronic ulcer of left heel and midfoot with unspecified severity; L97.419 Non-pressure chronic ulcer of right heel and midfoot with unspecified severity; E11.51 Type 2 diabetes mellitus with diabetic peripheral angiopathy without gangrene; E78.5 Hyperlipidemia, unspecified; E03.9 Hypothyroidism, unspecified; N18.3 Chronic kidney disease, stage 3 (moderate); E11.621 Type 2 diabetes mellitus with foot ulcer; E87.5 Hyperkalemia; D64.9 Anemia, unspecified; I25.10 Atherosclerotic heart disease of native coronary artery without angina pectoris; Z95.5 Presence of coronary angioplasty implant and graft; Z95.810 Presence of automatic (implantable) cardiac defibrillator

== ENCOUNTER → 2017-02-04 | Outpatient (REF) | payer MEDICARE, MEDICAID ==
[~2017-02-04] MED LIST changes: +ASPI81TA85 PO; +ISOS20TAB GT; +LEVO25TA5 PO; +LEVO30TA PO; +LEVO50TA5 PO; +LISI-538 PO; +POTA10TA16 PO; +PROC20004 IM; +ROCA0.25 PO; +SPIR25TA2 PO
[2017-02-04 15:22] LABS: PERCENT SATURATION 11.3 % (19.7-37.4)
== END ==
LOC: M LAB REF 13:26
PROVIDERS: ATTEND Internal Medicine Nephrology
DX: D50.9 Iron deficiency anemia, unspecified (principal)

== ENCOUNTER 2017-02-20 11:03 | Outpatient (CLI) | payer MEDICAID, MEDICARE ==
[~2017-02-20] VITALS: Ht 170.2 cm; Wt 94.9 kg
[~2017-02-20 11:03] MED LIST changes: -LEVO30TA PO; -LEVO50TA5 PO; -LISI-538 PO; -POTA10TA16 PO; -PROC20004 IM; -ROCA0.25 PO; -SPIR25TA2 PO
[2017-02-20] MEDS ORDERED: IRON SUCROSE 475 MG in NS 250 ML IV ONE (11:15)
[2017-02-20] MEDS ORDERED: IRON SUCROSE 25 MG in NS 50 ML IV ONE (11:15)
[2017-05-09] MEDS ORDERED: ZOFR4TAB3 PO (21:52)
== END 2017-02-20 16:30 | disposition home or self-care (01) ==
LOC: M INFU 11:03
PROVIDERS: ATTEND Internal Medicine Nephrology
DX: D50.9 Iron deficiency anemia, unspecified (principal)
CPT/HCPCS: 96365; 96366; J1756

== ENCOUNTER 2017-03-01 23:47 | Inpatient (IN) | payer MEDICARE, MEDICAID ==
[~2017-03-01] VITALS: Ht 170.2 cm; Wt 86.8 kg
[2017-03-02] VITALS (7 sets, daily range): BP systolic 128–169; BP diastolic 60–99
[2017-03-02] MEDS ORDERED: IPRATROPIUM 0.5MG/ALBUTEROL 2.5MG INH SOL UD 3ML (DUONEB)(J7620) NEB ONE (00:30)
[2017-03-02 01:04] LABS: BASO # 0.1 K/mm3 (0.0-0.2); BASO % 1.1 % (0.0-1.0); EOS # 0.2 K/mm3 (0.0-0.50); EOS % 3.6 % (0.0-3.0); LARGE UNSTAINED CELL # 0.1 K/mm3 (0.0-0.4); LARGE UNSTAINED CELL % 1.2 % (0.0-4.0); LYMPH # 0.9 K/mm3 (1.5-4.5); LYMPH % 13.1 % (24.0-44.0); MEAN CORPUSCULAR HEMOGLOBIN 27.2 pg (27.0-33.0); MEAN CORPUSCULAR HGB CONC 30.6 g/dl (32.0-36.5); MEAN CORPUSCULAR VOLUME 88.9 fl (80.0-96.0); MONO # 0.5 K/mm3 (0.0-0.8); MONO % 7.4 % (0.0-5.0); NEUTROPHILS # 4.5 K/mm3 (1.8-7.7); NEUTROPHILS % 73.7 % (36.0-66.0); PLATELET COUNT, AUTOMATED 141 k/mm3 (150-450); RED CELL DISTRIBUTION WIDTH 15.4 % (11.5-14.5); WHITE BLOOD COUNT 6.1 K/mm3 (4.0-10.0)
[2017-03-02 01:07] LABS: VENOUS BASE EXCESS 1.4 (-2.0-2.0); VENOUS O2 SATURATION 90.2 % (60.0-80.0); VENOUS PARTIAL PRESSURE CO2 65.4 mmHg (38.0-50.0); VENOUS PARTIAL PRESSURE O2 67.4 mmHg (30.0-50.0); VENOUS STANDARD HCO3 25.6 MEQ/L; VENOUS TOTAL CO2 31.4 MEQ/L (24.0-28.0)
[2017-03-02 01:33] LABS: ANION GAP 6 MEQ/L (8-16); BLOOD UREA NITROGEN 81 MG/DL (7-18); CALCIUM LEVEL 8.8 MG/DL (8.8-10.2); CARBON DIOXIDE LEVEL 30 MEQ/L (21-32); CHLORIDE LEVEL 99 MEQ/L (98-107); GLOMERULAR FILTRATION RATE 19.1 (>42); GLUCOSE, FASTING 284 MG/DL (83-110); POTASSIUM SERUM 4.9 MEQ/L (3.5-5.1); SODIUM LEVEL 135 MEQ/L (136-145)
[2017-03-02 01:52] LABS: ABG BASE EXCESS 0.4 (-2.0-2.0); ABG HCO3 27.3 MEQ/L (22.0-26.0); ABG PARTIAL PRESSURE CO2 56.6 mmHg (35.0-45.0); ABG PARTIAL PRESSURE O2 118.8 mmHg (75.0-100.0); ABG STANDARD HCO3 24.8 MEQ/L (22.0-26.0); ABG TOTAL CO2 29.1 MEQ/L (23.0-31.0); ABG pH (ARTERIAL) 7.302 UNITS (7.350-7.450)
[2017-03-02] MEDS ORDERED: FUROSEMIDE 40 MG/4 ML VIAL (J1940) IV ONE (02:30)
[2017-03-02] MEDS ORDERED: LEVO30TA PO (02:49)
[2017-03-02] MEDS: IPRATROPIUM 0.5MG/ALBUTEROL 2.5MG INH SOL UD 3ML (DUONEB)(J7620) NEB SCH ×2 (02:49→02:51)
[2017-03-02] MEDS ORDERED: POTA10TA16 PO (02:52)
[2017-03-02] MEDS ORDERED: ROCA0.25 PO (02:52)
[2017-03-02] MEDS ORDERED: TORS20TA2 PO (02:52)
[2017-03-02] MEDS ORDERED: PROC20004 IM (02:52)
[2017-03-02] MEDS ORDERED: SPIR25TA2 PO (02:52)
[2017-03-02 03:37] LABS: INR 1.08
[2017-03-02] MEDS ORDERED: **hydrALAZINE HCL** 25 MG TAB As Ordered ONE (04:25)
[2017-03-02] MEDS ORDERED: NITROGLYCERIN 0.4 MG SUBL TABLET SL PRN (04:30)
[2017-03-02] MEDS ORDERED: MORPHINE 2 MG/ML 1ML SYRINGE IV PRN (04:30)
[2017-03-02] MEDS ORDERED: METOCLOPRAMIDE INJ 10MG/2ML VIAL (J2765) IV PRN (04:30)
[2017-03-02] MEDS ORDERED: BISACODYL 5 MG TAB PO PRN (04:30)
[2017-03-02] MEDS ORDERED: ACETAMINOPHEN TAB 650MG DOSE (2X325MG) PO PRN (04:30)
[2017-03-02] MEDS ORDERED: **hydrALAZINE HCL** 25 MG TAB PO ONE (05:00)
[2017-03-02] MEDS ORDERED: DEXTROSE 50% 50 ML SYRINGE IV PRN (05:00)
[2017-03-02] MEDS ORDERED: GLUCOSE 4 GM CHEW TABLET PO PRN (05:00)
[2017-03-02] MEDS ORDERED: GLUCAGON FOR INJ 1 MG VIAL (J1610) SC PRN (05:00)
--- NOTE | 2017-03-02 05:10 | REPUSA ---
CLINICAL HISTORY: Chest pain. TECHNIQUE: Multiple axial CT images were obtained through chest without IV contrast material. MPR cor onal and sagittal sequences were obtained. COMMENTS: Moderate cardiomegaly. Moderate bilateral pleural effusions. Underlying passive atelectatic airspace disease of the lower lobes. There is no evidence of pleural or parenchymal mass. There is no evidence of hilar or mediastinal lymphadenopathy. The heart and great vessels are within normal limits. The visualized portions of the liver are of uniform attenuation without mass or defect. There is no i ntra or extrahepatic biliary ductal dilatation. The spleen is unremarkable. The visualized pancreas i s of normal contour and attenuation characteristics. There is no evidence of adrenal mass. The visual ized portions of the kidneys present no abnormalities. The bony structures are free of lytic or blastic lesions. Multilevel degenerative changes are seen in volving the thoracic spine. Scattered calcifications are seen involving the aorta and visualized lisseth r branches compatible with atherosclerosis. Unremarkable median sternotomy wires. IMPRESSION: Moderate cardiomegaly. Moderate bilateral pleural effusions. Passive atelectatic airspace disease of the lower lobes. Thank you for your kind referral of this patient.
[2017-03-02 05:13] LABS: BASO % 0.5 % (0.0-1.0); EOS # 0.2 K/mm3 (0.0-0.50); EOS % 2.8 % (0.0-3.0); LARGE UNSTAINED CELL # 0.1 K/mm3 (0.0-0.4); LARGE UNSTAINED CELL % 1.2 % (0.0-4.0); LYMPH # 0.9 K/mm3 (1.5-4.5); LYMPH % 14.2 % (24.0-44.0); MEAN CORPUSCULAR HEMOGLOBIN 27.9 pg (27.0-33.0); MEAN CORPUSCULAR HGB CONC 31.2 g/dl (32.0-36.5); MEAN CORPUSCULAR VOLUME 89.4 fl (80.0-96.0); MONO # 0.5 K/mm3 (0.0-0.8); MONO % 8.3 % (0.0-5.0); NEUTROPHILS # 4.1 K/mm3 (1.8-7.7); PLATELET COUNT, AUTOMATED 138 k/mm3 (150-450); RED CELL DISTRIBUTION WIDTH 15.4 % (11.5-14.5); WHITE BLOOD COUNT 5.7 K/mm3 (4.0-10.0)
--- NOTE | 2017-03-02 05:40 | REPUSA ---
CLINICAL HISTORY: Back pain. TECHNIQUE: Multiple axial images were obtained through the L1-L2, L2-L3, L3-L4, L4-L5 and L5-S1 inter spaces. Images were also reconstructed in coronal and sagittal planes. COMMENTS: There is no fracture visualized. The paraspinal soft tissues are unremarkable. There are no lytic or blastic lesions. Straightening of lumbar lordosis is seen, suggesting muscular spasm. There is evidence of multilevel disk disease, demonstrated by osteophytosis ad endplate sclerosis. Evaluation of individual levels reveals the following: At L4-L5 and L5-S1, broad-based disk protrusion in conjunction with hypertrophic facet disease result s in moderate bilateral foraminal narrowing.Canal is mildly stenotic. At L3-L4, broad-based disk bulge, results in mild bilateral foraminal narrowing. Canal is patent. L1-L2 and L2-L3 levels are unremarkable. IMPRESSION: 1. No fracture or spondylolisthesis. 2. Straightening of lumbar lordosis is seen, suggesting muscular spasm. 3. At L4-L5 and L5-S1, broad-based disk protrusion in conjunction with hypertrophic facet disease res ults in moderate bilateral foraminal narrowing. . Canal is mildly stenotic. 4. At L3-L4, broad-based disk bulge, results in mild bilateral foraminal narrowing. Canal is patent. Thank you for your kind referral of this patient.
--- NOTE | 2017-03-02 05:40 | REPUSA ---
CLINICAL HISTORY: Abdominal pain. TECHNIQUE: Multiple axial, sagittal and coronal CT images were obtained through the abdomen and pelvi s without administration of oral or IV contrast material. COMMENTS: The liver is mildly enlarged without mass or defect. There is no intra or extrahepatic biliary ductal dilatation. The spleen is normal. The gallbladder is a gallstone. The pancreas is of normal contour and attenuation characteristics. There is no evidence of adrenal mass. The kidneys are normal in size, shape and configuration. No renal or ureteral calculi are identified. There is no hydroureter or hydronephrosis. There is no evidence for appendicitis. There is no bowel wall thickening. No evidence for small or la rge bowel obstruction. There is mild ascites. There is no evidence of intrinsic or extrinsic bladder mass. Large bowel fecal stasis. Sigmoid diverticulosis. Procedure one fat stranding. Images of the lung bases show no evidence of pleural or parenchymal mass. There are no pleural effusi ons. The bony structures are free of lytic or blastic lesions. Multilevel degenerative changes are seen in volving the thoracolumbar spine. Scattered calcifications are seen involving the aorta and major branches compatible with atherosclero sis. IMPRESSION: Sigmoid diverticulitis. No perforation or abscess formation. Mild hepatomegaly. Cholelithiasis. Large fecal stasis. Thank you for your kind referral of this patient.
[2017-03-02 05:49] LABS: ALBUMIN 3.1 GM/DL (3.2-5.2); ALBUMIN/GLOBULIN RATIO 0.67 (1.00-1.93); BILIRUBIN,DIRECT 0.2 MG/DL (0.0-0.2); BILIRUBIN,TOTAL 0.4 MG/DL (0.2-1.0); CALCIUM LEVEL 7.9 MG/DL (8.8-10.2); CREATININE FOR GFR 3.34 MG/DL (0.70-1.30); GLOMERULAR FILTRATION RATE 19.5 (>42); POTASSIUM SERUM 4.9 MEQ/L (3.5-5.1); TOTAL PROTEIN 7.7 GM/DL (6.4-8.2)
[2017-03-02] MEDS: HEPARIN SOD (PORCINE) 5000 UNITS/ML VIAL SC SCH ×3 (06:00→21:51)
[2017-03-02] MEDS: ISOSORBIDE DIN. (ISORDIL) 20 MG TAB PO SCH ×3 (06:00→21:51)
[2017-03-02] MEDS ORDERED: MOM 30ML SUSPENSION UDC PO PRN (06:00)
[2017-03-02 06:39] LABS: FREE T4 1.04 NG/DL (0.76-1.46)
[2017-03-02] MEDS: ASPIRIN 81 MG ENTERIC TAB PO SCH (08:01)
[2017-03-02] MEDS: MIRALAX *UNIT DOSE* 17GM PACKET PO SCH (08:02)
[2017-03-02] MEDS: LIDOCAINE 5% (LIDODERM) PATCH TD SCH (08:02)
[2017-03-02] MEDS: LEVEMIR (INSULIN DETEMIR) 1 UNITS/0.01ML SC SCH (08:02)
[2017-03-02] MEDS: CLOPIDOGREL 75 MG TAB PO SCH (08:03)
[2017-03-02] MEDS: CALCITRIOL 0.25 MCG CAP (S0169) PO SCH (08:03)
[2017-03-02] MEDS: HumaLOG INSULIN (NovoLOG) PER UNIT SC SCH ×4 (08:03→20:38)
[2017-03-02] MEDS: CALCIUM/VITAMIN D 250 MG TABLET PO SCH ×2 (08:04→20:39)
[2017-03-02] MEDS: CARVedilol 12.5 MG TAB PO SCH ×2 (08:04→20:39)
[2017-03-02] MEDS: PREGABALIN 75 MG CAP(LYRICA) PO SCH ×2 (08:05→20:41)
[2017-03-02] MEDS: OMEPRAZOLE 20 MG CAP PO SCH (08:05)
--- NOTE | 2017-03-02 08:10 | REP ---
Right elbow series: Four views. History: Elbow swelling. Findings: An intravenous cannula is visible in the antecubital soft tissues. There is marked elio olecranon soft tissue swelling consistent with olecranon bursitis or other soft tissue edema or inflammation. There is mild coronoid process spurring indicating some osteoarthritis of the elbow. No fracture or bony erosive changes seen. Impression: Elio olecranon soft tissue swelling consistent with olecranon bursitis. Signed by Edgard Marion MD 03/02/2017 08:48 A
--- NOTE | 2017-03-02 08:18 | REP ---
Chest x-ray: Two views. History: Dyspnea and cough. Comparison chest x-ray January 07, 2017. Findings: The patient is status post median sternotomy. A pacemaker is noted in the right heart via the left side. The heart is mildly prominent in size, unchanged. There is slight blunting of one of the posterior pleural angles on the lateral radiograph and there is evidence of subpulmonic left pleural fluid on the frontal radiograph. No pulmonary edema is seen. No infiltrate is noted. Impression: Cardiomegaly, status post pacemaker and median sternotomy. Small left pleural effusion. CHF pattern. Signed by Edgard Marion MD 03/02/2017 08:49 A
[2017-03-02] MEDS ORDERED: SENOKOT S TAB PO SCH (09:00)
[2017-03-02] MEDS ORDERED: TORSEMIDE 20 MG TAB PO SCH (09:00)
[2017-03-02] MEDS ORDERED: LEVOTHYROXINE 25MCG TABLET (0.025MG) PO SCH (09:00)
[2017-03-02] MEDS ORDERED: SPIRONOLACTONE 25 MG TAB PO SCH (09:00)
--- NOTE | 2017-03-02 09:12 | HPE ---
DATE OF ADMISSION: 03/02/2017 Time patient was seen was at 4:00 a.m. PRIMARY CARE PROVIDER: Iliana Barragan NP BLUEPRINT REPRODUCER: Abhijit Mcpherson MD VASCULAR SURGEON: Dr. Simmons CHIEF COMPLAINT: Severe sweating last night, also with worsening shortness of breath and weakness of the lower extremities and with back pain. HISTORY OF PRESENT ILLNESS: 71-year-old male with a past medical history of heart failure with reduced ejection fraction of 30% with echocardiogram back in November 2016, and recent decompensated heart failure, also chronic hypoxic respiratory failure, however, not on oxygen at home, severe coronary artery disease status post multiple stents and coronary artery bypass grafting (CABG) 5 years ago, aortic valve sclerosis with mild stenosis, hypertension, lower extremity edema, type 2 diabetes on insulin at home, severe peripheral arterial disease with bilateral femoral popliteal bypass, chronic kidney disease stage III-IV, chronic anemia and bilateral calcaneal ulcers, who presented with severe sweating last night at 9:30 p.m. Also per the patient, he has been having increased shortness of breath and worsening chest pain lately. He also fell out of bed on Friday and since that time he has been having severe chest pain at the right lower chest as well as the entire left chest. He does have a history of angina however which happens on a daily basis for at least a few months. He also complained of feeling bloated and was unable to put his own shoes on because of the bloated and when he tried to sit up he could not breathe due to his abdominal being bloated. He denies any fever or chills. Denies any abdominal pains, any nausea, vomiting, diarrhea, or constipation. Denies any problem with urination. In addition, he does complain about left elbow swelling for at least one month. He has been scheduled to see orthopedic surgeon on [facility] to perform a surgical procedure for the elbow. In addition, he has been scheduled to see a doctor in [place] for his vascular problems and also for his lower extremely weakness. ALLERGIES: Patient is allergic to turkey, which gives him vomiting. HOME MEDICATIONS: - albuterol sulfate one inhalation four times a day as needed - aspirin 81 mg by mouth daily - calcitriol 0.25 mcg by mouth daily - calcium with vitamin D one tablet by mouth twice a day - carvedilol 12.5 mg one tablet by mouth twice a day - Plavix 75 mg one tablet by mouth daily - hydralazine 50 mg one tablet by mouth three times a day - Lantus 10 units subcutaneously every morning - isosorbide dinitrate 20 mg one tablet by mouth every 8 hours - levothyroxine 25 mcg by mouth daily - nitroglycerin 0.4 mg sublingual every 5 minutes as needed - omeprazole 40 mg one tablet by mouth daily - oxycodone/acetaminophen one tablet by mouth every 8 hours as needed - potassium chloride 10 mEq one tablet by mouth twice a day - Lyrica 150 mg one tablet by mouth twice a day - Procrit 20,000 intramuscularly every month - spironolactone 25 mg by mouth daily - torsemide 20 mg one tablet by mouth twice a day PAST MEDICAL HISTORY: Includes: 1. Heart failure with reduced ejection fraction. Last ejection fraction was 30% on echocardiogram back in November 2016. 2. Severe coronary artery disease with multiple stents and CABG, placed back in 2011. 3. Automatic implantable cardioverter-defibrillator (AICD) placement for heart failure. 4. Swelling of lower extremities. 5. Aortic valve sclerosis with mild stenosis. 6. Hypertension. 7. Chronic anemia. 8. Type 2 diabetes, insulin dependent. 9. Severe peripheral arterial disease with bilateral femoral popliteal bypass. 10. Chronic kidney disease stage III-IV, follows with Dr. Luke. 11. Bilateral diabetic foot ulcers, debrided by Dr. Forbes. PAST SURGICAL HISTORY: 1. AICD placement back in 2012. 2. Multiple stents placed, per patient roughly nine of them before the CABG. 3. CABG due to severe coronary artery disease, roughly in 2011. 4. Bilateral peripheral popliteal bypass due to severe peripheral arterial disease. 5. Bilateral foot debridement. SOCIAL HISTORY: Patient quit smoking roughly 5 years ago. Used to smoke 1-1/2 packs per day for more than 40 years. Denies any drinking or recreational drug use. Patient lives with his daughter, who helps him with dressing change. Patient has been working minimally recently. FAMILY HISTORY: Patient's mother had cancer, in her 60s. Father had heart disease, in his 70s. Sister also from heart disease. REVIEW OF SYSTEMS: GENERAL: Patient denies any weight changes, any recent traveling or sick contacts. Denies any fever or chills, however admits to severe sweating last night that was associated with chest pain. HEENT: Denies any changes with vision, smell, hearing or taste. Denies any trouble swallowing. CARDIOVASCULAR: Admits to frequent angina, worse recently. Admits to shortness of breath that has also been worse recently. Patient does not use oxygen at home. PULMONARY: Admits to worsening trouble breathing. GASTROINTESTINAL (GI): Denies any abdominal pains, nausea, vomiting, diarrhea or constipation. However, the patient has been noticing abdomen becoming more distended lately to the degree that he cannot tie his own shoes. Also he complained of increased shortness of breath when he tried to sit up due to the belly was pushing on the chest. MUSCULOSKELETAL: Admits to severe lower back pain, which has been chronic, however it worsened after he fell off the bed on Friday. He also complained also complained of bilateral lower extremity weakness that has been worsened afterwards. HEMATOLOGY/ONCOLOGY: Denies any weight loss, any ease of bruising or any bleeding anywhere. ENDOCRINE: Denies any heat or cold intolerance, however patient admits severe sweating, also chest pain as well as a history of insulin dependent type 2 diabetes. NEUROLOGICAL: Denies any weakness any one side of his body, however he does admit to bilateral lower extremity weakness that has been chronic for the patient, however worsened recently. PSYCH: No complaints. PHYSICAL EXAMINATION: VITAL SIGNS: Temperature 97.8, pulse 60, respirations 20, blood pressure 172/78, oxygen was saturating at 95% on 2 liters of nasal cannula. GENERAL: Patient is a morbidly obese elderly male who was alert, awake and oriented times three, poor historian however. He was laying comfortably in bed with head elevated at 30 degrees. HEENT: Normocephalic. Patient seems to have a scar on the left forehead from a childhood trauma. Otherwise, extraocular motor was intact. Mucous moist. NECK: Supple. No neck lymphadenopathy. CARDIOVASCULAR: Distant heart sounds due to increased AP diameter. Otherwise was regular rate and rhythm, 2/6 systolic heart murmur best heard at the left second intercostal space. AICD was palpable on the left chest. The patient's right lower chest was tender to palpation. ABDOMEN: Positive bowel sounds. Obese, soft, slightly tender to palpation at the right upper quadrant, and also the left upper quadrant. Otherwise, no peritoneal signs, no ecchymosis. EXTREMITIES: Trace pitting edema in bilateral lower extremities extending to the knee. The patient's dressing at the calcaneal region was intact with slight serosanguineous drainage. SKIN: Warm and dry as stated above. NEURO: Cranial nerves II through XII intact. LABORATORIES: WBC 6.1, hemoglobin 9, hematocrit 39.4 with a platelet count of 141, MCV of 88.9. ESR is pending. Morning labs are pending. Sodium 135, potassium 4.9, chloride 99, bicarb 30, anion gap was 6, BUN 81, creatinine 3.4, slightly above baseline creatinine. GFR 19.1, fasting glucose 284, calcium 8.8, CK 126, CK-MB 5.3. Troponin less than 0.02. BNP was 1920, however, it appears to be the patient's baseline. Second cardiac markers are pending. Morning basic metabolic panel pending. CRP is pending. Patient did have ABG in the emergency room which shows pH 7.3, pCO2 56.6, pO2 118.6, saturation 98.4% with base excess of 0.84 on 2 liters of nasal cannula. Coags show PT 14.2, INR 1.08, PTT 38.9. Blood cultures time two are pending. Patient had a portable chest x-ray in the emergency room, official result is pending. Preliminary result compared to November 25, 2016, shows improvement. Lumbar spine CT result is pending. CT of the abdomen and pelvis official result is pending. CT of chest official result is pending. I reviewed the film myself. It seems the patient does have a mild pleural effusion bilaterally, worse on the right side. ASSESSMENT/PLAN: 71-year-old male with a past medical history of heart failure with ejection fraction, severe coronary artery disease status post stents and CABG, status post AICD placement due to severe heart failure, lower extremity swelling, aortic valve sclerosis with mild stenosis, hypertension, type 2 diabetes, insulin dependent, severe peripheral arterial disease with bilateral femoral popliteal bypass, chronic kidney disease stage III-IV, chronic anemia, and bilateral diabetic foot ulcers who presented with: 1. Shortness of breath initially, possibly secondary to decompensated heart failure. The patient did receive one dose of Lasix in the emergency room. On examination however patient's lungs were clear and lower extremities only showed trace edema, possibly due to the patient already received Lasix. Will continue to monitor. At this point, the patient is likely back to baseline. Continue home torsemide. Continue to monitor intake and output and continue supplemental oxygen. Compared to the patient's ABG done on a month ago, ABG appears to be similar. This is likely back to his baseline as well. 2. Chest pain on both right side and left side. Unknown etiology. It seems to be pleuritic and worse with breathing. CT of the chest has been ordered, official result is pending. Will followup. 3. Bloated abdomen with distention. CT of abdomen and pelvis has been ordered. Results are pending. Liver panel has been ordered, results pending. Coags have been ordered and did not show abnormalities. Will continue to follow. Possibly ascites. 4. Right elbow swelling, possibly bursitis. Patient has been scheduled to see orthopedic surgeon at [facility], however patient stated the elbow has been warm and has a burning sensation. An x-ray has been ordered, will followup. Possibly consult orthopedic surgery while the patient is in the hospital for drainage and fluid analysis. 5. Severe lower back pain, which appears to be chronic, however worsened after the patient fell from the bed. CT of the lumbar spine has been ordered. Will followup. At this point, will place the patient on fall precautions due to the patient does have bilateral lower extremity weakness. Physical therapy has been ordered. Will followup with their recommendations. 6. Bilateral foot ulcers, which the patient does receive frequent dressing changes. Recently, per the patient, it has been improving. Will continue wound care. If there is a sign of worsening infection, will possibly place the patient on antibiotics. Blood cultures times two has been ordered. Will followup. ESR and CRP has been ordered as well. Will followup. Currently, patient does not have any fever or chills. He did have sweating, however no elevated white count. Will hold off on any antibiotic for now and will start if needed. 7. Chronic kidney disease with a creatinine of 3.4, indicating stage III-IV which appears to be the patient's baseline. Will continue to monitor. 8. Chronic anemia with hemoglobin of 9, MCV of 88.9. Patient did show having a low folate back on January 05, 2017. Iron panel was done before and was not low, therefore will not repeat. Will order a fecal occult blood however. At this point, will possibly start the patient on folate supplement and continue to trend the patient's CBC. 9. Thrombocytopenia with platelets of 141. Etiology unclear. Possibly related to the patient's heart failure, possibly has worsened liver function due to heart failure. Will continue to monitor. At this point, will continue the patient on subcu heparin and sequential compression devices (SCD). If platelets drop further will consider holding heparin. 10. Aortic valve sclerosis with valve stenosis. Patient does have a mild murmur. Continue to monitor. 11. Coronary artery disease status post stent placement and CABG. Patient does complain of frequent angina. Will continue trending cardiac markers times one. EKG however did not show changes compared to the past. Only shows sinus rhythm with a ventricular rate of 62 and a first degree AV block which was similar to before as well. 12. Hypertension. Patient does take multiple blood pressure medications at home and was found to have elevated blood pressure in the emergency room. Will continue to monitor closely. Possibly representing hypertensive urgency. Continue beta-juan daniel carvedilol 12.5 mg by mouth twice a day, isosorbide dinitrate 20 mg every 8 hours, spironolactone 25 mg by mouth daily, torsemide 20 mg by mouth twice a day, as well as hydralazine 50 mg by mouth three times a day, with hold parameters. Continue to monitor. 13. Insulin dependent type 2 diabetes. Continue insulin sliding scale and fingersticks. 14. Severe peripheral arterial disease with bilateral femoral popliteal bypass. The patient's feet feel warm and does not have any cyanosis. Will continue to monitor. 16. Deep vein thrombosis (DVT) prophylaxis with sequential compression devices (SCD) and heparin 5000 units subcutaneously every 8 hours. 17. Fluid, electrolytes and diet. Patient currently has only mild reduced sodium. Will continue the patient on no added sodium diet due to heart failure and also fluid restriction at 1.5 liters per day due to severe reduced ejection fraction. DISPOSITION: Patient does have several nonspecific complaints including chest pain, abdominal distention and severe sweating. At this point will followup with imaging and will followup with cultures, possibly consulting orthopedic surgeon for the right elbow swelling. Patient's morning attending is Dr. Karishma Howell. Patient has been discussed with attending doctor, Dr. Jackson. My preceptor for this patient encounter was Dr. Severiano Jackson. The preceptor was physically present in the building during the encounter and was fully available. As needed, all aspects of the patient interview, examination, medical decision making process, and medical care plan development were reviewed and approved by the preceptor. The preceptor is aware and concurs with the plan as stated in the body of this note and will attest to such by his/her cosignature.
--- NOTE | 2017-03-02 13:23 | CR ---
DATE OF CONSULTATION: 03/02/2017 REFERRING PHYSICIAN: Karishma Howell MD INDICATION: Congestive heart failure, chest pain, coronary artery disease. HISTORY OF PRESENT ILLNESS: Mr. Drake is well known to me. He is a pleasant, but somewhat difficult to manage 71-year-old man who has extensive cardiovascular history. He presented to [facility] on 03/01/2017 because of paroxysmal nocturnal dyspnea (PND) of severe degree two preceding nights and also episodes of chest discomfort. The discomfort was somewhat atypical. It was principally localized on the left side of chest and upper abdomen, but there was also some component in right upper quadrant of his abdomen over his right lower ribs. He reports that it was present on and off for several days. There was no obvious precipitating moment and the duration of pain would be typically hours at a time. But it was the dyspnea that brought him to the hospital. The evaluation in the ER did confirm the presence of congestive heart failure. He had evidence for bilateral pleural effusions on chest x-ray and there was some minimal vascularization. Followup CT of the chest also revealed bilateral pleural effusions, left larger than the right. He was admitted and essentially treated with his chronic medication with the exception of single additional dose of Lasix. Today he tells me that he is feeling better and last night he did not have much PND or orthopnea. He did not do much ambulation in the hospital as yet. His cardiac enzymes have been negative and ECG reveals old inferior wall infarct, poor R wave progression and component of left ventricular hypertrophy (LVH) but otherwise is without any evolution or convincing evidence for ischemia. This morning, when I saw him in ICU, he tells me that he feels better, but he does acknowledge that lately he has been quite sedentary and his exertional tolerance has been very poor. He follows principally now with Dr. Luke. He missed several appointments in our office and what is especially frustrating that he rarely bring his medications and consequently the knowledge of what he actually takes at home is limited and I am very suspicious that most of the time the medications are not administered correctly. PAST MEDICAL HISTORY: 1. Coronary artery disease. He had numerous coronary interventions and eventually underwent three vessel coronary artery bypass grafting in 2012 (left internal mammary artery (WOODS) to left anterior descending (LAD),saphenous vein graft (SVG) to obtuse marginal and SVG to posterior descending artery (PDA). He has not had heart catheterization since but had nuclear stress test. The last one was in October 2014 and revealed left ventricular systolic function severely reduced, ejection fraction (EF) of 33%. There was large inferior infarct with mild elio-infarct ischemia. His last echocardiogram was in November 2016 in this facility and revealed LVH with estimated EF around 30 to 35%, mild aortic stenosis and moderate pulmonary hypertension. 2. Peripheral vascular disease. He has a history of numerous revascularization lower extremities, both percutaneously and surgically. He had a right femoral posterior tibial bypass in 2010. He had left common femoral and peroneal balloon angioplasty in July 2015 and left femoral to peritoneal bypass in October 2015. He follows closely with Dr. Malave. 3. Type 2 diabetes. 4. Hyperlipidemia. 5. Chronic renal insufficiency, stage IV, followed by Drs. Luke and Ivone. 6. Hypertension. 7. History of implantable cardioverter defibrillator (ICD) placement in 2013. It is a single chamber Medtronic ICD. 8. History of amputations on both extremities with still wound not completely healed. Followed by podiatry. OUTPATIENT MEDICATIONS: - aspirin 81 a day - calcium as directed by nephrology, 250 twice a day according to my records - hydralazine 50 three times a day - isosorbide 20 mg every 8 hours - Lantus insulin - Lyrica 150 twice a day - nitroglycerin as needed - omeprazole 40 a day - Percocet as needed - Plavix 75 a day - Welchol two tablets twice a day - Coreg 12.5 twice a day - Procrit 20,000 once a month - spironolactone 25 a day - torsemide 20 mg twice a day ALLERGIES: He reports no medication allergies. SOCIAL HISTORY: The patient used to smoke but quit quite a few years ago. He also has a history of remote alcohol use, but nothing recently. He currently lives with his daughter. PAST SURGICAL HISTORY: Positive for coronary artery bypass surgery as above, Medtronic ICD implant, bilateral cataracts, bilateral surgical revascularization lower extremities as per HPI. FAMILY HISTORY: Mother of cancer in her 60s. Both brothers and a father had coronary artery disease. One of his brothers of suicide. REVIEW OF SYSTEMS: He denies any recent fever, chills, nausea, vomiting or diarrhea. He has had intermittent chest discomfort as per HPI. Dyspnea has been chronic to some degree. He is usually about [place] Heart Association class III , but he had PND in the last two days prior to admission. He has had intermittent peripheral edema, but not bad lately. No genitourinary symptoms. He denies any change in his weight at home but he has not been weighing himself. PHYSICAL EXAMINATION: Mr. Drake is an elderly man. He is alert, oriented and appropriate. He does not appear to be in any distress and when I entered his room he was sleeping in completely horizontal position. Last blood pressure was 147/90. Heart rate has been mostly in 50s. It is sinus bradycardia with manohar atrioventricular (AV) conduction and slightly wide QRS complex. Saturation 96 to 99% on 1 liters of oxygen by nasal cannula. His weight has been documented 93 kg. His JVP is very high, at least 5 or 6 cm above clavicle. LUNGS: Reveal fairly clear lungs. I do not appreciate any obvious pleural effusions by physical examination. No wheezing. HEART: Reveals regular rhythm. No gallop. There is a murmur at the base, but not more than 1 or 2 out of 6 intensity systolic murmur consistent with known mild . ABDOMEN: Somewhat tender in mostly left lower and upper quadrants, but no guarding. No rebound tenderness. Bowel sounds are positive. I do not appreciate hepatosplenomegaly. EXTREMITIES: Trace edema. There are bandages on both feet. NEUROLOGICAL: He is alert and oriented, and appropriate. I do not appreciate any focal weakness or distress. LABORATORY DATA: CBC: Hemoglobin 9.1, hematocrit 29, platelet count 138,000. His sed rate was 66. Basic metabolic panel: Potassium 4.9, BUN 48, creatinine 3.3. GFR 20. Glucose 300. Essentially normal liver function test, but for GEP 475 and alkaline phosphatase 518. He has normal troponin. His BNP was initially on admission about 1900 and his TSH of 15. A chest x-ray and CT of the chest as per HPI. ECG as per HPI. ASSESSMENT AND PLAN: Mr. Aaron Drake is a 71-year-old man who has established coronary artery disease with history of multiple percutaneous interventions and eventually coronary artery bypass surgery and chronic systolic congestive heart failure with associated renal insufficiency presents with PND and orthopnea as a dominant complaint. I do believe that the presentation is consistent with acute exacerbation of chronic systolic congestive heart failure. His management has always been complicated by his poor compliance in regards of bringing his medications to the office and consequently it has been challenging to really know what he has been taking at home. But nevertheless due to renal insufficiency he is not a candidate for angiotensin-converting enzyme (LESLY) inhibitors or angiotensin receptor blockers (ARBs). He has been receiving hydralazine, isosorbide which I will continue. His heart rate is well controlled on Coreg which will be continued as well. He is clearly volume overloaded and I am going to change his oral torsemide to IV furosemide. I will start with 80 mg twice a day, but we can adjust the dose depending on his response and renal function. For the time being, I will continue spironolactone. He will have a low sodium diet and will restrict his fluid intake to 1800 ml a day. I am hoping that with this intervention he will improve fairly rapidly, he already tells me he is feeling better. As for as coronary artery disease is concerned, he has had several days of chest discomfort that sounds very atypical for angina and I think it is not likely to represent anginal pain. Will continue formal rule out protocol but I do foresee that he will be continued on aspirin and Plavix. He is not a very good candidate for revascularization because it would likely end up into renal failure and dialysis. As far as the management of diabetes is concerned it will be left with primary team. The patient does not take any statins at this point. He was taking Crestor on outpatient basis and Zetia was added, but he complained about myalgias and consequently the medications were discontinued. I think it is prudent to put him back on at least on small dose. He is hypothyroid and consequently it is possible that the hypothyroidism had contributed to his muscle pain. As far as the hypothyroidism is concerned, looking at the labs in the computer, his TSH has been gradually increasing over last few months. I will start him on supplementation and will start with 50 mcg of levothyroxine. I will continue to follow the patient with you. Apparently nephrology service has been asked to see him as well, which certainly would be helpful. ARABELLA
[2017-03-02] MEDS: FUROSEMIDE 100 MG/10 ML VIAL (J1940) IV SCH (16:24)
[2017-03-02] MEDS: **hydrALAZINE** 50 MG TAB PO SCH ×2 (16:27→20:39)
--- NOTE | 2017-03-02 16:46 | IPN ---
DATE: 03/02/2017 SUBJECTIVE: Patient seen and examined. No acute events overnight. Admitted overnight with shortness of breath that has been going on for 2-3 days, and also right elbow swelling. Denies any chest pain, pressure, discomfort. VITAL SIGNS: Temperature 98.6, pulse 57, respirations 18, blood pressure 128/60 LABORATORY DATA: WBC 5.7, hemoglobin and hematocrit 9.1 over 29.3, platelets 138. Chemistry: Sodium 137, potassium 4.9, chloride 101, bicarbonate 27, BUN 78, creatinine 3.34. TSH 15.4. PHYSICAL EXAMINATION: GENERAL: Patient alert, oriented times three, in no acute distress. HEENT: Normocephalic, atraumatic. PULMONARY: Distant breath sounds bilaterally. No significant wheeze. CARDIAC: Distant heart sounds. Regular. 2/6 systolic murmur. ABDOMEN: Soft, nontender. Obese. Positive bowel sounds. EXTREMITIES: Trace edema bilateral lower extremities. ASSESSMENT AND PLAN: This is a 71-year-old male patient with underlying medical history of congestive heart failure with ejection fraction of 30-35%, chronic kidney disease (CKD) stage IV, severe coronary arterial disease status post stent and coronary artery bypass graft (CABG) with automatic implantable cardioverter defibrillator (AICD) , lower extremity swelling, aortic valve sclerosis with mild stenosis, hypertension, type 2 diabetes insulin dependent, severe peripheral artery disease with bilateral femoral-popliteal bypass, chronic anemia, bilateral diabetic foot ulcer follows with Dr. Forbes, admitted with shortness of breath. 1. Shortness of breath secondary to likely decompensated congestive heart failure with systolic dysfunction, ejection fraction of 30-35%. Continue Lasix. Lower extremities only showed trace edema. Followup electrolytes. Cardiology consulted. Cardiac implant. Telemetry monitoring. Arterial blood gas (ABG) is appreciated. Continue Plavix, aspirin. 2. Chest pain bilateral. Although patient reported chest pain to the nighttime physician, the patient denies any chest pain right now. There are no complaints. Telemetry, EKG, aspirin and Plavix. Continue statin, beta blockers. Cardiology has been consulted. 3. Hypertension. Continue beta blockers, Lasix, hydralazine, Isordil, spironolactone. 4. Mild abdominal distention. CT scan appreciated. Continue bowel regimen as ordered. 5. Diverticulosis with questionable diverticulitis, but most likely it is colonic edema due to CHF. Will continue to monitor. Patient currently is asymptomatic. 6. Right elbow olecranon bursitis. Consulted orthopedics. Does not appear to be infected as per orthopedic doctor, Dr. Omalley. Recommend elevation and avoid bending the elbow. Outpatient followup. X-ray appreciated. 7. Severe lower back pain. CT scan appreciated. Cannot perform MRI. Continue to monitor. Pain regimen as tolerated. Physical therapy. 8. Bilateral foot ulcer. Patient sees Dr. Forbes. Wounds to be healing well. Vashe cleanser with wet-to-dry dressing for now. PT wound care has been consulted. 9. Mild elevation of creatinine compared to baseline. Baseline chronic kidney disease (CKD) stage IV. Baseline creatinine about 2.9, currently at 3.4. Nephrology has been consulted. Followup parathyroid hormone (PTH) and phosphorus. Followup urine studies. 10. Chronic anemia. Continue to monitor. Oral supplementation. 11. Thrombocytopenia. Unclear etiology. Continue to monitor. 12. Aortic stenosis with sclerosis with valve stenosis. Supportive care, outpatient followup. 13. Coronary arterial disease with stent and coronary artery bypass graft (CABG) . Continue aspirin and Plavix and statin. Continue hydralazine, Isordil, beta blockers, Lasix and spironolactone. EKG is appreciated. Telemetry monitoring. 14. Hypertension. Continue beta blockers, Isordil, hydralazine, spironolactone, Lasix. Monitor blood pressure. Adjust as needed. 15. Insulin-dependent type two diabetes. Continue on basal bolus. Monitor fingersticks. 16. Severe peripheral artery disease. Continue aspirin, Plavix, statin. Continue to monitor. No signs of cyanosis. The patient had recent bilateral femoral-popliteal artery bypass. Will continue to follow. 17. Deep venous thrombosis (DVT) prophylaxis. Heparin subcutaneous. DISPOSITION: Pending physical improvement, physical therapy. Appreciate assistance from nephrology, cardiology and orthopedics. ARABELLA
[2017-03-02] MEDS: SENOKOT S TAB PO SCH (20:38)
[2017-03-02] MEDS: ROSUVASTATIN 10 MG TAB (CRESTOR) PO SCH (20:39)
[2017-03-02] MEDS: **NOTE PATIENT COMMENT** MISC XX SCH (21:11)
--- NOTE | 2017-03-02 21:36 | ECGEPIP ---
Stationary ECG Study [facility] - ED Test Date: 2017-03-02 Pat Name: FRANK JAUREGUI Department: Room: [place] [address] Gender: M Telephone Sex Worker: : 1945 Requested By: CARMENCITA Banks Order Number: [id number] Reading MD: Deloris Garcia Measurements Intervals [place] Rate: 58 P: 69 SC: 221 QRS: 37 QRSD: 121 T: 92 QT: 476 QTc: 470 Interpretive Statements SINUS BRADYCARDIA WITH FIRST DEGREE AV BLOCK POSSIBLE LEFT ATRIAL ENLARGEMENT INFERIOR MYOCARDIAL INFARCTION, PROBABLY OLD IVCD DELAYED R PROGRESSION PROLONGED QTC Electronically Signed On 03-02-2017 21:36:37 EDT by Deloris Garcia
[2017-03-02] MEDS: PERCOCET 5MG/325MG TAB PO PRN (23:44)
[2017-03-03] VITALS (7 sets, daily range): BP systolic 104–154; BP diastolic 59–98
[2017-03-03 04:51] LABS: ALBUMIN/GLOBULIN RATIO 0.73 (1.00-1.93); BILIRUBIN,TOTAL 0.4 MG/DL (0.2-1.0); CALCIUM LEVEL 8.4 MG/DL (8.8-10.2); CREATININE FOR GFR 3.45 MG/DL (0.70-1.30); GLOMERULAR FILTRATION RATE 18.8 (>42); MAGNESIUM LEVEL 2.5 MG/DL (1.8-2.4); PHOSPHORUS LEVEL 4.7 MG/DL (2.5-4.9); TOTAL PROTEIN 7.1 GM/DL (6.4-8.2)
[2017-03-03 04:54] LABS: BASO % 0.5 % (0.0-1.0); EOS # 0.2 K/mm3 (0.0-0.50); EOS % 2.5 % (0.0-3.0); LARGE UNSTAINED CELL # 0.1 K/mm3 (0.0-0.4); LARGE UNSTAINED CELL % 1.3 % (0.0-4.0); LYMPH # 0.9 K/mm3 (1.5-4.5); LYMPH % 12.2 % (24.0-44.0); MEAN CORPUSCULAR HGB CONC 30.9 g/dl (32.0-36.5); MEAN CORPUSCULAR VOLUME 90.5 fl (80.0-96.0); MONO # 0.4 K/mm3 (0.0-0.8); MONO % 6.6 % (0.0-5.0); NEUTROPHILS # 4.8 K/mm3 (1.8-7.7); NEUTROPHILS % 76.7 % (36.0-66.0); PLATELET COUNT, AUTOMATED 139 k/mm3 (150-450); RED CELL DISTRIBUTION WIDTH 15.7 % (11.5-14.5); WHITE BLOOD COUNT 6.3 K/mm3 (4.0-10.0)
[2017-03-03 05:08] LABS: POTASSIUM SERUM 5.4 MEQ/L (3.5-5.1)
[2017-03-03] MEDS: LEVOTHYROXINE 50MCG TABLET (0.05MG) PO SCH (05:20)
[2017-03-03] MEDS: HEPARIN SOD (PORCINE) 5000 UNITS/ML VIAL SC SCH ×3 (05:20→21:29)
[2017-03-03] MEDS: ISOSORBIDE DIN. (ISORDIL) 20 MG TAB PO SCH ×3 (05:20→21:29)
[2017-03-03] MEDS: **hydrALAZINE** 50 MG TAB PO SCH ×3 (09:00→21:00)
--- NOTE | 2017-03-03 09:06 | IPN ---
DATE: 03/03/2017 Mr. Drake tells me that he was able to sleep relatively well yesterday and he did not have any paroxysmal nocturnal dyspnea. He also denies any chest pain. When I walked to his room, he was actually laying completely flat and sleeping. He denies any palpitations, either. Review of telemetry monitoring reveals no arrhythmias. VITAL SIGNS: Blood pressure 154/64, heart rate has been mostly in 60s. He is afebrile. Saturation is 91 to 93% of 2 liters of oxygen by nasal cannula. Documented urine output yesterday was 2500 mL but the balance was negative only about 600. The weight has not been obtained this morning as yet. He is alert and oriented and appropriate. His jugular venous pressure is still very high, at least 4 to 5 cm above clavicle. Lungs reveal bilateral end inspiratory crackles, mostly over lower half of lung ramos. I do not appreciate any findings to suggest pleural effusion. Heart exam reveals regular rhythm. Murmur is unchanged. No gallop. Abdomen is obese but soft. There is a small amount of peripheral edema. Neurologically, he is intact. LABORATORY HUNT: Hemoglobin 9.1, hematocrit 29.6, platelet count 139,000. Basic metabolic panel: potassium 5.4, BUN 79, creatinine 3.5 for GFR 19, glucose 224, albumin is 3.0. ASSESSMENT AND PLAN: Mr. Drake is a 71-year-old man who has chronic systolic/diastolic congestive heart failure that got acutely exacerbated. It is due to underlying ischemic cardiomyopathy and a concomitant stage IV renal insufficiency. So far, even though with good diuretic response to Lasix yesterday, we did not accomplish much. He is still quite volume overloaded and undoubtedly his filling pressures are high. Consequently, I am going to continue current dose of Lasix. I am going to discontinue the spironolactone as he is hyperkalemic. Unfortunately, his renal function, if anything, got slightly worse since yesterday. I think it is a little too early to make conclusions from this and I would continue diuresis that is being done. I am somewhat hopeful that the addition of thyroid replacement will bring some improvement as he clearly was hypothyroid coming in. The remaining issues are stable.
[2017-03-03] MEDS: FUROSEMIDE 100 MG/10 ML VIAL (J1940) IV SCH ×2 (09:17→17:22)
[2017-03-03] MEDS: OMEPRAZOLE 20 MG CAP PO SCH (09:20)
[2017-03-03] MEDS: CALCIUM/VITAMIN D 250 MG TABLET PO SCH ×2 (09:20→21:32)
[2017-03-03] MEDS: SENOKOT S TAB PO SCH ×2 (09:21→21:23)
[2017-03-03] MEDS: ASPIRIN 81 MG ENTERIC TAB PO SCH (09:23)
[2017-03-03] MEDS: CLOPIDOGREL 75 MG TAB PO SCH (09:23)
[2017-03-03] MEDS: MIRALAX *UNIT DOSE* 17GM PACKET PO SCH (09:24)
[2017-03-03] MEDS: CALCITRIOL 0.25 MCG CAP (S0169) PO SCH (09:24)
[2017-03-03] MEDS: PREGABALIN 75 MG CAP(LYRICA) PO SCH (09:24)
[2017-03-03] MEDS: LEVEMIR (INSULIN DETEMIR) 1 UNITS/0.01ML SC SCH (09:26)
[2017-03-03] MEDS: HumaLOG INSULIN (NovoLOG) PER UNIT SC SCH ×4 (09:27→21:00)
[2017-03-03] MEDS: LIDOCAINE 5% (LIDODERM) PATCH TD SCH (09:32)
[2017-03-03] MEDS: CARVedilol 6.25 MG TAB PO SCH ×2 (09:42→21:27)
[2017-03-03] MEDS ORDERED: IPRATROPIUM 0.5MG/ALBUTEROL 2.5MG INH SOL UD 3ML (DUONEB)(J7620) NEB PRN (09:45)
[2017-03-03] MEDS ORDERED: MAGNESIUM CITRATE 300 ML BTL PO ONE (10:00)
--- NOTE | 2017-03-03 12:13 | IPNPDOC ---
Subjective Date Seen The patient was seen on 03/03/17. Subjective Chief Complaint/HPI The patient is a 71-year-old male admitted with a reason for visit of Acute On Chronic Systolic Chf. Events since last encounter Patient states he has been doing alright. He expressed interest in discharge due to appointment with vascular surgeon in a couple days. Discussed with patient why it is important to stay in the hospital. Constitutional: Denies: Fever ENT: Denies: Head Aches Skin: Denies: Lesions Pulmonary: Reports: Other Symptoms (wheezing) Gastrointestinal: Denies: Nausea, Vomiting Hematologic: Denies: Bruising, Bleeding Excessively Endocrine: Denies: Polydipsia, Polyphagia Objective Physical Examination General Exam: Positive: Alert, Cooperative ENT Exam: Positive: Atraumatic Neck Exam: Positive: Supple Chest Exam: Positive: Wheezing Heart Exam: Positive: Rate Normal, Normal S1, Normal S2, Negative: Tachycardic, Bradycardic, Murmurs Abdomen Exam: Positive: Soft, Negative: Normal bowel sounds, Tenderness, Hepatospenomegaly, Mass Extremity Exam: Positive: Normal pulses (Radial pulse 2/4 bilaterally. ), Other (enlarged bursae right olecranon) Skin Exam: Positive: Other skin issue (Dressings bilaterally heels. ) Neuro Exam: Positive: Normal Gait Assessment /Plan Problems (1) Heart failure, systolic, with acute decompensation Problem Text: Patient has CHF with systolic EF of 30-35%. Continuing Lasix. Holding Spironolactone due to patient's K 5.3. Repeat BMP at 1400. May need to consider other potassium lowering methods if not lower. Continue statin, aspirin and Plavix. Patient has history of Aortic Sclerosis and cardiac implant. Cardiology has been consulted. Appreciate their assistance in managing this patient. (2) Olecranon bursitis of right elbow Problem Text: Discussed with patient holding arm straight and not bending arm or putting weight into it. Patient agreed. Monitor for signs of infection. (3) Diabetic ulcer of both feet Problem Text: Changing dressings today. Monitor wounds. Appreciate assistance from Dr. Forbes at this time in managing this patient. (4) Chronic anemia Problem Text: Continue to monitor. (5) Thrombocytopenia Problem Text: Continue to monitor. (6) Hypertension Status: Chronic Problem Text: Monitor BP. Continue medications. (7) Acute on chronic kidney failure Status: Acute Problem Text: Continue to monitor. Nephrology has been consulted. Appreciate their assistance in managing this patient. (8) Diabetes mellitus Status: Chronic Problem Text: Continue medications. Insulin. (9) Wheezing Problem Text: Prescribe patient Duonebs, scheduled and PRN. Plan/VTE VTE Prophylaxis Ordered?: Yes (Heparin) VS, I&O, 24H, Fishbone Vital Signs/I&O Vital Signs Date Time Temp Pulse Resp B/P (MAP) Pulse Ox O2 Delivery O2 Flow Rate FiO2 03/03/17 09:42 62 126/59 03/03/17 08:00 97.1 22 91 Nasal Cannula 2.0 I&O- Last 24 Hours up to 6 AM 03/03/17 05:59 Intake Total 2000 ml Output Total 2115 ml Balance -115 ml Laboratory Data 24H LABS Laboratory Tests 2 03/02/17 11:44: Bedside Glucose (Misc Panel) 222H 03/02/17 17:25: Bedside Glucose (Misc Panel) 121H 03/02/17 18:29: Urine Appearance CLEAR, Urine Color STRAW, Urine pH 5.0, Urine Specific [place] 1.006, Urine Protein 1+H, Urine Glucose (UA) NEGATIVE, Urine Ketones NEGATIVE, Urine Urobilinogen 0.2, Urine Bilirubin NEGATIVE, Urine Leukocyte Esterase NEGATIVE, Urine Blood NEGATIVE, Urine Nitrite NEGATIVE, Urine WBC (Auto) 1, Urine RBC (Auto) 1, Urine Hyaline Casts (Auto) 1, Urine Bacteria (Auto) NEGATIVE , Urine Squamous Epithelial Cells 0, Urine Sperm (Auto) , Urine Random Creatinine 22.8, Urine Random Total Protein 36.8H, Urine Random Sodium 107 03/02/17 20:36: Bedside Glucose (Misc Panel) 170H 03/03/17 01:56: Bedside Glucose (Misc Panel) 207H 03/03/17 04:10: White Blood Count 6.3, Red Blood Count 3.27L, Hemoglobin 9.1L, Hematocrit 29.6L , Mean Corpuscular Volume 90.5, Mean Corpuscular Hemoglobin 28.0, Mean Corpuscular Hemoglobin Concent 30.9L, Red Cell Distribution Width 15.7H, Platelet Count 139L, Neutrophils (%) (Auto) 76.7H, Lymphocytes (%) (Auto) 12.2L , Monocytes (%) (Auto) 6.6H, Eosinophils (%) (Auto) 2.5, Basophils (%) (Auto) 0.5, Neutrophils # (Auto) 4.8, Lymphocytes # (Auto) 0.9L, Monocytes # (Auto) 0.4 , Eosinophils # (Auto) 0.2, Basophils # (Auto) 0.0, Large Unclassified Cells % 1.3, Large Unclassified Cells # 0.1, Anion Gap 7L, Glomerular Filtration Rate 18.8L, Blood Urea Nitrogen 79H, Creatinine 3.45H, Sodium Level 139, Potassium Level 5.4H, Chloride Level 103, Carbon Dioxide Level 29, Calcium Level 8.4L, Phosphorus Level 4.7, Aspartate Amino Transf (AST/SGOT) 28, Alanine Aminotransferase (ALT/SGPT) 47, Alkaline Phosphatase 491H, Total Bilirubin 0.4, Total Protein 7.1, Albumin 3.0L, Magnesium Level 2.5H, Albumin/Globulin Ratio 0.73L, Parathyroid Hormone (Intact) 136.1H CBC/BMP Laboratory Tests 03/03/17 04:10 Red Blood Count 3.27 L, Mean Corpuscular Volume 90.5, Mean Corpuscular Hemoglobin 28.0, Mean Corpuscular Hemoglobin Concent 30.9 L, Red Cell Distribution Width 15.7 H, Neutrophils (%) (Auto) 76.7 H, Lymphocytes (%) (Auto ) 12.2 L, Monocytes (%) (Auto) 6.6 H, Eosinophils (%) (Auto) 2.5, Basophils (%) (Auto) 0.5, Neutrophils # (Auto) 4.8, Lymphocytes # (Auto) 0.9 L, Monocytes # ( Auto) 0.4, Eosinophils # (Auto) 0.2, Basophils # (Auto) 0.0, Calcium Level 8.4 L , Phosphorus Level 4.7, Aspartate Amino Transf (AST/SGOT) 28, Alanine Aminotransferase (ALT/SGPT) 47, Alkaline Phosphatase 491 H, Total Bilirubin 0.4 , Total Protein 7.1, Albumin 3.0 L Microbiology Microbiology 03/02/17 Blood Culture - Preliminary, Resulted No growth after 24 hours . All specim... 03/02/17 Blood Culture - Preliminary, Resulted No growth after 24 hours . All specim... GME ATTESTATION GME ATTESTATION My preceptor for this patient encounter was Dr. He and he was physically present in the building during the encounter and was fully available. As needed , all aspects of the patient interview, examination, medical decision making process, and medical care plan development were reviewed and approved by the preceptor. Preceptor is aware and concurs with the plan as stated in the body of this note and will attest to such by his/her co-signature. ATTENDING NOTE Patient is seen and examined. Agree with the plan mentioned in the resident's note. I will continue to participate in the care of the patient. LULU Hyatt MD, DO Mar 03, 2017 12:12 PALOMO GRIJALVA MD Mar 07, 2017 12:03
[2017-03-03] MEDS: IPRATROPIUM 0.5MG/ALBUTEROL 2.5MG INH SOL UD 3ML (DUONEB)(J7620) NEB SCH ×2 (14:12→19:12)
[2017-03-03 14:13] LABS: ABG BASE EXCESS -0.6 (-2.0-2.0); ABG HCO3 26.5 MEQ/L (22.0-26.0); ABG PARTIAL PRESSURE CO2 56.3 mmHg (35.0-45.0); ABG PARTIAL PRESSURE O2 99.4 mmHg (75.0-100.0); ABG TOTAL CO2 28.2 MEQ/L (23.0-31.0)
[2017-03-03 14:39] LABS: CREATININE FOR GFR 3.48 MG/DL (0.70-1.30); GLOMERULAR FILTRATION RATE 18.6 (>42); POTASSIUM SERUM 5.1 MEQ/L (3.5-5.1)
--- NOTE | 2017-03-03 18:22 | CR ---
DATE OF CONSULTATION: 03/02/2017 INDICATION: Olecranon bursitis. HISTORY OF PRESENT ILLNESS: Mr. Drake is a 71-year-old gentleman with many medical problems who has developed olecranon bursitis in the right elbow about 3 weeks ago. He is quite tired during this exam, but he specifically denies banging it. He denies prior history of olecranon bursitis. He basically has slightly decreased range of motion due to the swelling and he has discomfort when he leans on it, but otherwise it does not bother him. He does not use any type of elbow brace or attempt to limit his elbow flexion at night. No prior operations or surgery on the elbow. For the patient's past medical history, past surgical history, medications, allergies, social history, and review of systems, please see the hospitalist's history and physical (H and P), which was available for my review in the electronic medical record. In brief, he has bilateral heel ulcers, peripheral vascular disease, and coronary artery disease status post coronary artery bypass graft (CABG) and stenting. PHYSICAL EXAMINATION: Reveals an elderly male in no apparent distress. He responds to questions appropriately, but does fall asleep during our conversation. CARDIOVASCULAR: He has a 1+ radial pulse with irregular rate. PULMONARY: He has regular, nonlabored breathing. MUSCULOSKELETAL: Exam of the right arm reveals a large olecranon bursa. It is soft on palpation and relatively nontender. There is no erythema. There are no wounds or drainage. He has 130 degrees of elbow flexion and can extend about 15 degrees short of full extension. He has painless forearm pronation and supination. The medial and lateral epicondyles are nontender. He can fire extensor pollicis longus (EPL), flexor pollicis longus (FPL), and interosseous (IO). He does have muscle wasting in the right hand. Sensation: Light touch is intact in his hand, he denied paresthesias in the ulnar nerve distribution. RADIOLOGY: X-rays of the right elbow report, but image were not available for my review, which stated soft tissue swelling, but no fractures in the right elbow. ASSESSMENT AND PLAN: This patient is a 71-year-old gentleman with many medical problems, admitted for heart failure, who has a right elbow olecranon bursitis. There are absolutely no signs of infection. I explained to the patient there are zero indications at this point for aspiration given that there is no infection. Should he develop cellulitis or even gross purulence within the bursa, I still recommend treatment with antibiotics. Would only aspirate the right elbow for recurrent infection to try to identify the bacterial species. At this point, he would be best to limit his elbow flexion when resting or sleeping. This could be done with a padded elbow brace with the pad on the side of the bursa during the day and spun 180 degrees at night to limit elbow flexion. Alternatively, he could use some tape to secure an extra sweatshirt or some type of towel in the front of the elbow, which would limit his elbow flexion beyond 90 degrees for sleeping. Certainly, ice is reasonable. He is not allowed to take nonsteroidal anti-inflammatory medications. I would not recommend surgical excision for a nonseptic olecranon bursitis, especially given all his medical problems. This patient does not need any outpatient followup for his elbow. Thank you for asking me to see this patient.
[2017-03-03] MEDS: **NOTE PATIENT COMMENT** MISC XX SCH (21:00)
--- NOTE | 2017-03-03 21:04 | REP ---
CT BRAIN WITHOUT CONTRAST: 03/03/2017: Comparison: 11/22/2016, 08/04/2016. Clinical history: Altered mental status. Findings: The images were repeated as the patient was unable to remain still for the examination. Ventricles are midline, symmetric and without midline shift. Their size proportionate to the diffuse cerebral atrophy and age appropriate. Basal ganglia show a couple of old lacunar infarcts on the right and one on the left in the head of the caudate nucleus. Otero-white junction differentiation was contained. Some minor heterogeneous white matter low density change suggesting small vessel ischemic disease. Atrophy is greatest in the temporal lobes and cerebellum. There is no vascular territory infarct, intracranial hemorrhage, mass or mass effect. No extra-axial fluid collection. Cerebellar atrophy in a fairly symmetric fashion. Brainstem intact. Basal cisterns intact. Mastoids and visualized sinuses were clear. Heavy atherosclerotic calcification of the carotid siphons. No fracture or focal lesion identified in the skull base or calvarium. Impression: 1. There are bilateral old small basal ganglia lacunar infarcts, unchanged with no evidence of acute infarct, intracranial hemorrhage, mass effect or edema. 2. Some mild chronic small vessel white matter changes and heavy vascular calcifications carotid siphons. 3. The sinuses and mastoids intact and no fracture in skull base or calvarium. Signed by Gilberto Petty MD 03/04/2017 11:00 A
[2017-03-03] MEDS: ROSUVASTATIN 10 MG TAB (CRESTOR) PO SCH (21:24)
[2017-03-04] MEDS: IPRATROPIUM 0.5MG/ALBUTEROL 2.5MG INH SOL UD 3ML (DUONEB)(J7620) NEB SCH ×4 (03:20→20:22)
[2017-03-04 04:00] VITALS: BP 130/78
[2017-03-04 06:38] LABS: BASO % 0.5 % (0.0-1.0); EOS # 0.1 K/mm3 (0.0-0.50); EOS % 1.6 % (0.0-3.0); LARGE UNSTAINED CELL # 0.1 K/mm3 (0.0-0.4); LARGE UNSTAINED CELL % 1.9 % (0.0-4.0); LYMPH # 0.9 K/mm3 (1.5-4.5); LYMPH % 13.6 % (24.0-44.0); MEAN CORPUSCULAR HEMOGLOBIN 28.2 pg (27.0-33.0); MEAN CORPUSCULAR VOLUME 88.3 fl (80.0-96.0); MONO # 0.6 K/mm3 (0.0-0.8); MONO % 8.8 % (0.0-5.0); NEUTROPHILS # 4.6 K/mm3 (1.8-7.7); NEUTROPHILS % 73.6 % (36.0-66.0); PLATELET COUNT, AUTOMATED 147 k/mm3 (150-450); RED CELL DISTRIBUTION WIDTH 15.8 % (11.5-14.5); WHITE BLOOD COUNT 6.2 K/mm3 (4.0-10.0)
[2017-03-04] MEDS: LEVOTHYROXINE 50MCG TABLET (0.05MG) PO SCH (06:57)
[2017-03-04] MEDS: ISOSORBIDE DIN. (ISORDIL) 20 MG TAB PO SCH ×3 (06:57→21:42)
[2017-03-04] MEDS: HEPARIN SOD (PORCINE) 5000 UNITS/ML VIAL SC SCH ×3 (06:58→21:18)
[2017-03-04 06:59] LABS: ALBUMIN 3.3 GM/DL (3.2-5.2); ALBUMIN/GLOBULIN RATIO 0.72 (1.00-1.93); BILIRUBIN,TOTAL 0.4 MG/DL (0.2-1.0); CALCIUM LEVEL 9.2 MG/DL (8.8-10.2); CREATININE FOR GFR 3.41 MG/DL (0.70-1.30); MAGNESIUM LEVEL 2.7 MG/DL (1.8-2.4); POTASSIUM SERUM 4.7 MEQ/L (3.5-5.1); TOTAL PROTEIN 7.9 GM/DL (6.4-8.2)
--- NOTE | 2017-03-04 07:30 | CR ---
DATE OF CONSULTATION: 03/02/2017 REFERRING PHYSICIAN: Dr. Karishma Howell REASON FOR CONSULTATION: Acute kidney injury superimposed on chronic kidney disease IV, congestive heart failure with exacerbation. CHIEF COMPLAINT: The patient was admitted on October 31 with the complaint of worsening shortness of breath for the past three days. HISTORY OF PRESENT ILLNESS: Mr. Aaron Drake is a 71-year-old male with a past medical history of chronic kidney disease (CKD) stage III, advancing now to CKD stage IV with a baseline creatinine in the low 2s, with an average estimated GFR of about 30 mL per minute for the past eight months, with history of repeat acute kidney injury (AKIs) in the recent past with associated deterioation in renal function and progression of CKD to stage IV . Past medical history includes type 2 diabetes, hypertension longstanding with congestive heart failure with a left ventricular ejection fraction of around 30-35% with moderate pulmonary hypertension and mild aortic stenosis. He has a history of numerous coronary interventions and coronary artery bypass grafting (CABG) in 2012 and several admissions for acute on chronic systolic heart failure exacerbations this year including one in December, in November and in October of 2016. He did require HD X 2 on another recent admission in [facility] for heart failure exacerbation with volume overload and concomitant KOSTAS. The patient is now seen in the progressive care unit (PCU). He complains of a three day history of increasing shortness of breath with paroxysmal nocturnal dyspnea and atypical chest discomfort. The patient states he has been compliant with his home diuretic regimen. He states he is currently taking Torsemide 40 mg daily. He denies any fluid restriction in his diet. On triage he was noted to be hypertensive with a saturation of 94% on room air. Chest x-ray was consistent with congestive heart failure (CHF) pattern and small pleural effusion. The patient had a noncontrast chest CT which showed moderate bilateral pleural effusions. He had a CT of the abdomen and pelvis which showed sigmoid diverticulitis. Kidneys seen on the CAT scan were without any hydroureter or hydronephrosis. He was treated with Lasix 40 mg intravenous (IV) once and started on Lasix 80 mg IV twice a day. He does not have a Jordan catheter in place. He denies any history of urinary retention, denies any problem initiating a urinary stream. He denies sensation of incomplete void or problems emptying his bladder. The patient denies any nonsteroidal antiinflammatory drugs (NSAID) use. He is unable to detail his medications and dosages. There is no family at the bedside this morning. He states he feels better since being admitted. He has made 800 mL of urine in total overnight with a negative fluid balance of 430 mL. He denies any PND or orthopnea overnight. PAST MEDICAL HISTORY: 1. CKD Stage III advancing to CKD Stage IV. Review of the patient's eGFR since July 2016 showed an average eGFR of 30 mL per minute with history of KOSTAS requiring short term hemodialysis in the recent past and deterioration of GFR. 2. Ischemic cardiomyopathy status post numerous coronary interventions and CABG in 2012. Last echocardiogram with a left ventricular ejection fraction of 30-35%. 3. Type 2 diabetes on home insulin. 4. Hypertension. 5. Peripheral vascular disease status post numerous revascularizations of lower extremities. Right femoral posterior tibial bypass in 2010 and left femoral to peritoneal bypass in 2014. HOME MEDICATIONS: Reviewed and include; - aspirin 81 mg daily - calcitriol 0.25 mcg daily - calcium with Vitamin D one tab twice daily - Coreg 12.5 twice daily - Plavix 75 daily - hydralazine 50 mg three times a day - insulin Lantus 10 units every morning - isosorbide dinitrate 20 mg by mouth every 8 hours - levothyroxine 25 mcg tab daily - omeprazole 40 mg by mouth daily - potassium 10 mEq by mouth twice a day - Procrit 20,000 units intramuscularly every month - spironolactone 25 mg daily - torsemide 20 mg twice a day ALLERGIES: No known drug allergies. PAST SURGICAL HISTORY: 1. CABG in 2012. 2. Implantable cardioverter defibrillator (ICD) placement in 2013. 3. Bilateral femoral peritoneal bypass. 4. History of amputations on both lower extremities. 5. Bilateral cataracts. SOCIAL HISTORY: Ex-smoker, quit smoking about five years prior. Previously 1 to 1-1/2 packs per daily for more than 40 years. Denies alcohol or recreational drug use. The patient lives with his daughter. FAMILY HISTORY: Heart disease. REVIEW OF SYSTEMS: GENERAL: The patient denies checking daily weights. Denies any recent febrile illnesses, fever or chills. HEENT: Denies any sore throat or change in vision. CARDIOVASCULAR: Admits to worsening shortness of breath over the past three days and occasional right upper quadrant discomfort. No use of home oxygen. PULMONARY: Admits to orthopnea and paroxysmal nocturnal dyspnea for the last two nights. GASTROINTESTINAL (GI): Denies nausea, vomiting, diarrhea. MUSCULOSKELETAL: Chronic low back pain, chronic lower extremity weakness. Denies edema of the lower extremities. GENITOURINARY (): Denies dysuria, hematuria, no trouble with urinary stream. NEUROLOGIC: Denies headache, denies syncopal episodes. Admits to chronic lower extremity weakness. Remainder review of systems is negative. PHYSICAL EXAMINATION: VITAL SIGNS: Temperature 98.6, pulse 67, respiratory rate 18, blood pressure 128/60 pulse oximetry 95% on room air. GENERAL: The patient is seen lying in bed with the head of bed elevated at 30 degrees. He is awake, alert and in no acute distress. HEENT: Normocephalic, moist mucous membranes. EOMI NECK: Supple. Distended neck veins present. LUNGS: Decreased breath sounds at bilateral base, otherwise clear. Saturating 95 % on room air. HEART: Sinus bradycardia, regular rhythm. No edema in the lower extremities. ABDOMEN: Soft, obese, positive bowel sounds. No appreciable organomegaly. EXTREMITIES: No edema. Dressing in place on feet. NEUROLOGIC: Alert, awake, and oriented times three. Appropriately interactive and following commands. Psychiatric: appropriate mood and affect. LABORATORY DATA: Hemoglobin 9.1, WBC 5.7, platelets 138. Sodium 137, potassium 49, bicarbonate 27, creatinine 3.3, glucose 300, A1c 9.6%. Corrected calcium 8.6. Brain natriuretic peptide (BNP) 1920. Blood gas consistent with respiratory acidosis. IMAGING: Chest x-ray with no pulmonary edema seen. CT of the chest with bilateral moderate pleural effusion. CT of the abdomen and pelvis: Sigmoid diverticulitis. Kidneys visualized with no hydroureter or hydronephrosis. Inpatient medications reviewed by myself. ASSESSMENT AND PLAN: This is a 71-year-old male with longstanding history of poorly controlled diabetes, hypertension, ischemic cardiomyopathy with left ventricular ejection fraction of 35% peripheral vascular disease, has been having recurrent admissions for decompensated heart failure. The patient has a history of chronic kidney disease (CKD) which has been progressive on review of labs over the past year and recurrent acute kidney injuries. . He is now admitted with an acute exacerbation of congestive heart failure. He is unsure of his home diuretic regimen but a chart review shows Torsemide 40 mg daily with Aldactone 25 mg daily. He has not been on an angiotensin converting enzyme (LESLY) or an angiotensin receptor juan daniel (ARB) therapy due to advanced chronic kidney disease and history of recurrent acute kidney injuries (AKIs) in the past year. 1. KOSTAS on CKD Stage IV: Imaging shows no obstruction. Electrolytes are stable with a potassium of 4.9 and a bicarbonate of 27. The patient has had several repeat admissions for decompensated heart failure. He is unsure of his home medication regimen and is likely not appropriately fluid restricting at this time as he is volume overloaded, I agree with an increase in diuretics to Lasix 80 intravenous (IV) twice a day. Further management of his diuretics will be based upon his renal function and clinical appearance. Review of labs over the past year does show a progression in his chronic kidney disease likely due to his repeat AKIs which are in and of themselves a risk factor for more rapid progression of chronic kidney disease. He has required 2 sessions of hemodialysis in the recent past in the setting of KOSTAS with CHF exacerbation. Urine electrolytes have been ordered and those will be followed as well. OK to continue with Aldactone 25mg daily and monitor potassium. 2. Coronary artery disease status post coronary artery bypass grafting, systolic cardiomyopathy. Will need to assess the patient's home situation to improve compliance with medications and to decrease the recurrence of hospitalizations for volume overload. Agree with IV diuretics with close monitoring of renal function and electrolytes. 3. Hypertension. Hemodynamically stable at this time on carvedilol 12.5 mg twice a day, hydralazine 50 mg by mouth three times a day, Isordil 20 mg every 8 hours and Aldactone 25 mg daily. Would avoid hypotension and borderline hypotension while we are aggressively diuresing the patient to decrease the risk of further deterioration of renal function. 4. Type 2 diabetes, poorly controlled. Most recent A1c 9.6%. Again, likely a reflection of poor medication compliance at home. 5. Hypothyroidism. TSH 15 and noted patient was started on Levoxyl. The plan of care was discussed with Dr. Mcpherson. Vi cc: MD ARABELLA Mary
[2017-03-04 08:25] VITALS: BP 150/80
--- NOTE | 2017-03-04 08:27 | IPN ---
DATE: 03/04/2017 Mr. Drake has not been doing overly well. Apparently yesterday he had episodes of agitation and was trying to crawl out of bed and pull out his Jordan catheter and actually sitter was necessary. This morning he is a relatively easily arousable but seems slightly dazed. Nevertheless, most of his answers are appropriate. He denies any chest pain or shortness of breath. Surprisingly, to me, he prefers to lie completely flat, which is unusual for patients with clear-cut congestive heart failure. VITAL SIGNS: Blood pressure this morning was as high as 180 but throughout the night it was mostly in 120s and 130s. Heart rate has been in 60s and 70 in sinus rhythm with occasional ventricular ectopy. He is afebrile. Saturates in low 90s on room air. Fluid balance yesterday was documented as 1300 negative. Weight has not been documented yet this morning. He is alert and oriented times three. His jugular venous pressure is still quite high. Lungs are unchanged. There are still fine end inspiratory crackles throughout both lung ramos. I do not appreciate any physical findings suggestive of pleural effusion indicating that it is not overly large. Heart exam reveals regular rhythm. There is murmur at the apex at approximately 1 or 2 out of 6 intensity. It is blowing in nature and likely consistent with MR. I do not appreciate gallop. Abdomen is obese but soft. There is no significant peripheral edema. Neurologically, as above, I do not appreciate any focal weakness, but he definitely has coarse tremors of upper extremities. LABORATORY HUNT: Basic metabolic panel reveals potassium 4.7, BUN 84, creatinine 3.4 for calculated GFR 19, glucose was 126, magnesium 2.7 and ammonia level was drawn yesterday evening and was 40. CBC: Hemoglobin 9.3, hematocrit 29, platelet count 147,000. ASSESSMENT AND PLAN: Mr. Drake is a 71-year-old man who has ischemic cardiomyopathy with chronic systolic/diastolic congestive heart failure that is acutely exacerbated. There is a concomitant stage IV renal insufficiency. He is also diabetic. As far as congestive heart failure is concerned, I would continue current course. We have accomplished modest diuresis, but he remains volume overloaded. His renal function is holding relatively steady. His blood pressure was very high this morning but it was only isolated reading and for the most part his blood pressure has been well controlled. If needed, we can further increase the dose of hydralazine. I do not believe he can get any more beta blockers as his heart rate is typically in relatively bradycardic range. As far as coronary artery disease is concerned, he has no anginal symptoms and is on antiplatelet medications. Finally, I am somewhat concerned about his neurologic condition. I suspect that the tremor could be related to Lyrica and the dose was already reduced. I think we may need to reduce it further depending on his clinical course. I hope that this is not an early sign of uremia. He is followed in this regard by nephrology service as well. We will continue following the patient in the hospital. No medication changes for me today.
[2017-03-04] MEDS: HumaLOG INSULIN (NovoLOG) PER UNIT SC SCH ×4 (08:39→21:00)
[2017-03-04] MEDS: LEVEMIR (INSULIN DETEMIR) 1 UNITS/0.01ML SC SCH (08:43)
[2017-03-04] MEDS: MIRALAX *UNIT DOSE* 17GM PACKET PO SCH (08:43)
[2017-03-04] MEDS: FUROSEMIDE 100 MG/10 ML VIAL (J1940) IV SCH ×2 (08:43→16:46)
[2017-03-04] MEDS: SENOKOT S TAB PO SCH ×2 (08:44→21:41)
[2017-03-04] MEDS: LIDOCAINE 5% (LIDODERM) PATCH TD SCH (08:44)
[2017-03-04] MEDS: CALCITRIOL 0.25 MCG CAP (S0169) PO SCH (08:44)
[2017-03-04] MEDS: **hydrALAZINE** 50 MG TAB PO SCH ×2 (08:45→16:47)
[2017-03-04] MEDS: OMEPRAZOLE 20 MG CAP PO SCH (08:45)
[2017-03-04] MEDS: CALCIUM/VITAMIN D 250 MG TABLET PO SCH ×2 (08:45→21:42)
[2017-03-04] MEDS: ASPIRIN 81 MG ENTERIC TAB PO SCH (08:45)
[2017-03-04] MEDS: CARVedilol 6.25 MG TAB PO SCH ×2 (08:46→21:42)
[2017-03-04] MEDS: CLOPIDOGREL 75 MG TAB PO SCH (08:46)
[2017-03-04] MEDS ORDERED: PREGABALIN 75 MG CAP(LYRICA) PO SCH ×2 (09:00)
--- NOTE | 2017-03-04 11:17 | REP ---
PORTABLE CHEST: AP portable view of the chest is performed and compared to a prior study of 03/02/2017. There is again cardiomegaly with vascular congestion. Left pleural effusion and basilar infiltrates/atelectasis is essentially unchanged. Multiple sternal wires are present. There is a left pacemaker again noted. IMPRESSION: Essentially stable exam. Signed by Adam Otero MD 03/04/2017 04:40 P
[2017-03-04 12:00] VITALS: BP 180/80
[2017-03-04] MEDS ORDERED: amLODIPine 5 MG TAB PO ONE (12:15)
--- NOTE | 2017-03-04 15:01 | IPN ---
DATE: 03/03/2017 SUBJECTIVE: The patient is seen today at the bedside in the intensive care unit (ICU). RN is present. The patient complains of twitching in his hands and dropping things. He now has a condom catheter placed. He denies any orthopnea or paroxysmal nocturnal dyspnea. Overnight, denies any chest discomfort. He has been started on fluid restriction. REVIEW OF SYSTEMS: No headaches, no syncope or presyncopal episode. No chest pain. No palpitations. No orthopnea. No nausea. No vomiting, diarrhea. No abdominal pain. No lower extremity swelling. + Hand twitching. Remainder of review of systems is negative. VITAL SIGNS: Temperature 97.8, heart rate 65, respiratory rate 20, blood pressure 144/25, pulse oximetry 97% on 2 liters nasal cannula. Intake 2000 mL and output 2565, net negative 565 mL. No daily weight recorded for today. PHYSICAL EXAMINATION: General: The patient is awake, alert, oriented times three. Swallowing his pills and sitting up at the edge of the bed in no acute distress. HEENT: Normocephalic. Moist mucous membranes. NECK: Supple. Prominent neck veins. PULMONARY: Symmetric bilateral air entry. Decreased at base. CARDIAC: S1, S2. Regular rhythm. AICD chest wall ABDOMEN: Soft, nontender with positive bowel sounds. GENITOURINARY: Condom catheter. EXTREMITIES: Pedal edema. Neurologic: noted tremor of bilateral hands, otherwise no focal deficit LABORATORY DATA: WBC 6.3, hemoglobin 9.1, platelet count 139. Sodium 139, potassium 5.4, bicarbonate 29, creatinine 3.4, corrected calcium 9.2 , magnesium 2.5, phosphorous 4.7, alkaline phosphatase 491. PTH 136. Microbiology: Blood cultures remain with no growth for 24 hours. ASSESSMENT AND PLAN: This is a 71-year-old male with past medical history of ischemic systolic cardiomyopathy with ejection fraction of 30 to 35%, chronic kidney disease stage III advancing to chronic kidney disease stage IV, status post coronary artery bypass graft (CABG), status post AICD, hypertension, insulin-dependent diabetes, peripheral arterial disease with bilateral femoral popliteal bypass and bilateral diabetic foot ulcer, who was admitted with shortness of breath and decompensated congestive heart failure (CHF) and acute on chronic renal insufficiency. 1. Acute kidney injury on chronic kidney disease IV. His urine random sodium is elevated, consistent with a tubular injury and use of diuretics. Urine protein to creatinine ratio is about 1.5 grams, consistent with his poorly controlled diabetes. Serial lab review shows a progression in his chronic kidney disease. At this time, while we are actively diuresing the patient with Lasix 80 mg IV twice a day, I would not want too tightly control his blood pressure as it will be more difficult to diurese him and increase the risks of worsening of his kidney function. Refractory volume overload in advanced CKD would be an indication for initiation of chronic hemodialysis. 2. Shortness of breath secondary to decompensated congestive heart failure (CHF), pleural effusions. We will fluid restrict the patient to 1500 mL daily, continue Lasix 80 mg IV twice a day and we will adjust diuretics based on the clinical response and laboratory studies. We will allow systolic of 130 and 140s while he is being aggressively diuresed. 3. Hyperkalemia. Diet changed to 2 grams potassium. Spironolactone is on hold. Continue with Lasix for kaliuresis 4. Hypertension. Holding parameters added for hydralazine. Carvedilol decreased to 6.25 mg twice a day. Aldactone is on hold for hyperkalemia. He also remains on Isordil 20 mg by mouth every 8 hours. 5. Insulin-dependent diabetes mellitus, poorly controlled with A1/c 9.6% with subnephrotic proteinuria. Not a candidate for LESLY or ARB therapy due to advanced chronic kidney disease and propensity for hyperkalemia. 6. Twitch. The patient complains of increased twitching in the arms. Unlikely to be uremia given his current GFR. I feel it is more likely the Lyrica that is the culprit and I have reduced the dose. Lyrica is 90% excreted in urine and associated with tremors. The plan of care was discussed with Dr. Karishma Howell, hospitalist. ARABELLA
[2017-03-04 16:00] VITALS: BP 182/80
--- NOTE | 2017-03-04 18:43 | IPNPDOC ---
Subjective Date Seen The patient was seen on 03/04/17. Subjective Chief Complaint/HPI The patient is a 71-year-old male admitted with a reason for visit of Acute On Chronic Systolic Chf. Events since last encounter Patient notes that he is feeling ok today. Is acting sluggish on exam. Not as active as yesterday. Patient sleeping on and off during exam. Sitter is in room with patient. He was combative overnight, pulling out IVs, etc. Gets aggravated sooner than usual today. Patient denies any pain on exam. Eating and sleeping alright. Constitutional: Denies: Chills, Fever Eyes: Denies: Vision change ENT: Denies: Head Aches Gastrointestinal: Denies: Nausea, Vomiting Hematologic: Denies: Bruising, Bleeding Excessively Musculoskeletal: Denies: Back Pain Neurological: Denies: Numbness Objective Physical Examination General Exam: Positive: Alert, Cooperative ENT Exam: Positive: Atraumatic Neck Exam: Positive: Supple Chest Exam: Positive: Normal air movement Heart Exam: Positive: Rate Normal, Normal S1, Normal S2, Negative: Rubs Abdomen Exam: Positive: Soft, Negative: Normal bowel sounds, Tenderness, Hepatospenomegaly, Mass Extremity Exam: Positive: Normal pulses (Radial pulse 2/4 bilaterally. ), Other (bursitis right olecranon) Skin Exam: Positive: Other skin issue (Dressings bilaterally heels. ) Neuro Exam: Positive: Normal Gait Assessment /Plan Problems (1) Heart failure, systolic, with acute decompensation Problem Text: Patient has CHF with systolic EF of 30-35%. Continuing diuresis with Lasix. Holding Spironolactone due to patient's K 5.3. Repeat BMP at 1400. Continue statin, aspirin and Plavix. Cardiology has been consulted. Appreciate their assistance in managing this patient. Per Dr. Mcpherson's note, no changes to medications today. (2) Olecranon bursitis of right elbow Problem Text: Had previously discussed with patient holding arm straight and not bending arm or putting weight into it. Patient agreed. Monitor for signs of infection. (3) Diabetic ulcer of both feet Problem Text: Changing dressings daily. Monitor wounds. Appreciate assistance from Dr. Forbes at this time in managing this patient. (4) Chronic anemia Problem Text: Continue to monitor. Item Value Date Time Hemoglobin 9.3 g/dl L 03/04/17 0516 Hematocrit 29.0 % L 03/04/17 0516 (5) Thrombocytopenia Problem Text: Continue to monitor. Item Value Date Time Platelet Count 147 k/mm3 L 03/04/17 0516 (6) Hypertension Status: Chronic Problem Text: Monitor BP. Continue medications. Had elevated BP this morning at 180/80. Continue to monitor. May need to changed meds if BP remains elevated. Vital Signs Label Value Date Time Blood Pressure Assessment 182/81 03/04/17 0657 Blood Pressure Assessment 150/80 (103) 03/04/17 0825 Blood Pressure Assessment 150/80 03/04/17 0845 Blood Pressure Assessment 180/80 (113) 03/04/17 1200 (7) Chronic kidney disease Status: Chronic Problem Text: Continue to monitor. Nephrology has been consulted. Appreciate their assistance in managing this patient. (8) Diabetes mellitus Status: Chronic Problem Text: Continue medications. Insulin. (9) Wheezing Problem Text: Continue Duonebs, scheduled and PRN. (10) KOSTAS (acute kidney injury) Status: Acute Problem Text: Patient has KOSTAS on chronic. Continue to monitor. Appreciate Nephrology in management of this patient. (11) Ischemic cardiomyopathy Problem Text: Patient has history of CAD and implantable defibrillator. (12) Coronary artery disease Status: Chronic Problem Text: Patient has history with stent placement. Plan/VTE VTE Prophylaxis Ordered?: Yes (Heparin) Plan/Urinary Catheter Reason for insertion/continuin: Critical Pt monitoring VS, I&O, 24H, Fishbone Vital Signs/I&O Vital Signs Date Time Temp Pulse Resp B/P (MAP) Pulse Ox O2 Delivery O2 Flow Rate FiO2 03/04/17 16:47 182/80 03/04/17 16:00 97.0 66 20 92 Room Air 03/03/17 16:00 I&O- Last 24 Hours up to 6 AM 03/04/17 05:59 Intake Total 240 ml Output Total 1500 ml Balance -1260 ml Laboratory Data 24H LABS Laboratory Tests 2 03/03/17 18:44: Lactic Acid Level 0.6, Ammonia 40H 03/03/17 21:04: Bedside Glucose (Misc Panel) 156H 03/04/17 05:16: White Blood Count 6.2, Red Blood Count 3.29L, Hemoglobin 9.3L, Hematocrit 29.0L , Mean Corpuscular Volume 88.3, Mean Corpuscular Hemoglobin 28.2, Mean Corpuscular Hemoglobin Concent 32.0, Red Cell Distribution Width 15.8H, Platelet Count 147L, Neutrophils (%) (Auto) 73.6H, Lymphocytes (%) (Auto) 13.6L , Monocytes (%) (Auto) 8.8H, Eosinophils (%) (Auto) 1.6, Basophils (%) (Auto) 0.5, Neutrophils # (Auto) 4.6, Lymphocytes # (Auto) 0.9L, Monocytes # (Auto) 0.6 , Eosinophils # (Auto) 0.1, Basophils # (Auto) 0.0, Large Unclassified Cells % 1.9, Large Unclassified Cells # 0.1, Anion Gap 7L, Glomerular Filtration Rate 19.0L, Blood Urea Nitrogen 84H, Creatinine 3.41H, Sodium Level 141, Potassium Level 4.7, Chloride Level 102, Carbon Dioxide Level 32, Calcium Level 9.2, Aspartate Amino Transf (AST/SGOT) 23, Alanine Aminotransferase (ALT/SGPT) 41, Alkaline Phosphatase 525H, Total Bilirubin 0.4, Total Protein 7.9, Albumin 3.3, Magnesium Level 2.7H, Albumin/Globulin Ratio 0.72L 03/04/17 11:46: Bedside Glucose (Misc Panel) 119H 03/04/17 16:58: Bedside Glucose (Misc Panel) 133H CBC/BMP Laboratory Tests 03/04/17 05:16 Red Blood Count 3.29 L, Mean Corpuscular Volume 88.3, Mean Corpuscular Hemoglobin 28.2, Mean Corpuscular Hemoglobin Concent 32.0, Red Cell Distribution Width 15.8 H, Neutrophils (%) (Auto) 73.6 H, Lymphocytes (%) (Auto ) 13.6 L, Monocytes (%) (Auto) 8.8 H, Eosinophils (%) (Auto) 1.6, Basophils (%) (Auto) 0.5, Neutrophils # (Auto) 4.6, Lymphocytes # (Auto) 0.9 L, Monocytes # ( Auto) 0.6, Eosinophils # (Auto) 0.1, Basophils # (Auto) 0.0, Calcium Level 9.2, Aspartate Amino Transf (AST/SGOT) 23, Alanine Aminotransferase (ALT/SGPT) 41, Alkaline Phosphatase 525 H, Total Bilirubin 0.4, Total Protein 7.9, Albumin 3.3 Microbiology Microbiology 03/02/17 Blood Culture - Preliminary, Resulted No Growth after 48 hours. All Specime... 03/02/17 Blood Culture - Preliminary, Resulted No Growth after 48 hours. All Specime... GME ATTESTATION GME ATTESTATION My preceptor for this patient encounter was Dr. Jane and he was physically present in the building during the encounter and was fully available. As needed , all aspects of the patient interview, examination, medical decision making process, and medical care plan development were reviewed and approved by the preceptor. Preceptor is aware and concurs with the plan as stated in the body of this note and will attest to such by his/her co-signature. LULU WALKER DO Mar 04, 2017 18:43 MURTAZA JANE MD Mar 17, 2017 21:24
[2017-03-04] MEDS ORDERED: hydrALAZINE INJ 20 MG/ML VIAL IV ONE (19:30)
[2017-03-04] MEDS ORDERED: hydrALAZINE INJ 20 MG/ML VIAL IV PRN (19:30)
[2017-03-04] MEDS ORDERED: **hydrALAZINE HCL** 25 MG TAB PO ONE (19:30)
[2017-03-04 20:00] VITALS: BP 134/56
[2017-03-04 21:06] VITALS: BP 148/52
[2017-03-04] MEDS: ROSUVASTATIN 10 MG TAB (CRESTOR) PO SCH (21:41)
[2017-03-04] MEDS: **hydrALAZINE HCL** 25 MG TAB PO SCH (21:41)
[2017-03-04] MEDS: **NOTE PATIENT COMMENT** MISC XX SCH (21:42)
[2017-03-05] VITALS (7 sets, daily range): BP systolic 131–168; BP diastolic 59–88
[2017-03-05] MEDS: IPRATROPIUM 0.5MG/ALBUTEROL 2.5MG INH SOL UD 3ML (DUONEB)(J7620) NEB SCH ×4 (02:00→20:33)
[2017-03-05] MEDS: HEPARIN SOD (PORCINE) 5000 UNITS/ML VIAL SC SCH ×3 (04:49→22:20)
[2017-03-05 05:28] LABS: BASO % 0.8 % (0.0-1.0); EOS # 0.1 K/mm3 (0.0-0.50); EOS % 2.5 % (0.0-3.0); LARGE UNSTAINED CELL # 0.2 K/mm3 (0.0-0.4); LARGE UNSTAINED CELL % 3.4 % (0.0-4.0); LYMPH % 19.6 % (24.0-44.0); MEAN CORPUSCULAR HEMOGLOBIN 28.3 pg (27.0-33.0); MEAN CORPUSCULAR VOLUME 88.4 fl (80.0-96.0); MONO # 0.4 K/mm3 (0.0-0.8); MONO % 7.9 % (0.0-5.0); NEUTROPHILS # 3.4 K/mm3 (1.8-7.7); NEUTROPHILS % 65.7 % (36.0-66.0); PLATELET COUNT, AUTOMATED 151 k/mm3 (150-450); RED CELL DISTRIBUTION WIDTH 16.1 % (11.5-14.5); WHITE BLOOD COUNT 5.2 K/mm3 (4.0-10.0)
[2017-03-05 05:45] LABS: ALBUMIN/GLOBULIN RATIO 0.7 (1.00-1.93); BILIRUBIN,TOTAL 0.4 MG/DL (0.2-1.0); CALCIUM LEVEL 8.5 MG/DL (8.8-10.2); CREATININE FOR GFR 3.47 MG/DL (0.70-1.30); GLOMERULAR FILTRATION RATE 18.7 (>42); MAGNESIUM LEVEL 2.7 MG/DL (1.8-2.4); POTASSIUM SERUM 4.5 MEQ/L (3.5-5.1); TOTAL PROTEIN 7.3 GM/DL (6.4-8.2)
[2017-03-05] MEDS: ISOSORBIDE DIN. (ISORDIL) 20 MG TAB PO SCH ×3 (06:05→22:19)
[2017-03-05] MEDS: LEVOTHYROXINE 50MCG TABLET (0.05MG) PO SCH (06:05)
[2017-03-05] MEDS ORDERED: LIDOCAINE 2% MDV 20 ML VIAL As Ordered ONE (07:24)
[2017-03-05] MEDS ORDERED: HEPARIN 1,000 UNITS/ML 10ML VIAL (FOR RADIOLOGY& DIALYSIS ONLY) As Ordered ONE (07:24)
[2017-03-05] MEDS: HumaLOG INSULIN (NovoLOG) PER UNIT SC SCH ×4 (07:30→21:00)
--- NOTE | 2017-03-05 08:10 | IPN ---
DATE: 03/05/2017 Mr. Drake tells me that he had a pretty decent night. He did not have any difficulty sleeping. There was no paroxysmal nocturnal dyspnea (PND) or orthopnea. This morning he looks a lot more alert and oriented than he did yesterday. He still has some tremor of upper extremities though, and he had hard time eating his breakfast on his own. He weighs 90.8 kg, which is not significantly changed compared to 2 days ago. Blood pressure this morning was as high as 175, but most of the time is in 130s to low 150s. Afebrile. Saturation 92% on room air, and heart rate has been in 60s and 70s. Fluid balance yesterday was documented as a liter and half negative. He is alert and oriented times three. His jugular venous pulse (JVP) is still high but there is improvement. I do not see more than maybe 2 cm elevation above clavicle. Lungs still have fine end inspiratory crackles in both sides, but again, improved compared to yesterday. Heart exam regular rhythm. No gallop. Murmur is unchanged. Abdomen is soft but obese. There is no peripheral edema. Neurologically, besides tremor, I do not appreciate any focal weakness. His laboratories reveal potassium 4.5, BUN 84, creatinine 3.5 for GFR about 18, glucose 81, magnesium 2.7, albumin 3. His BNP is down to 1180, which is still very high but improved since admission. ASSESSMENT AND PLAN: Mr. Drake is a 71-year-old man who has acute on chronic systolic congestive heart failure due to underlying ischemic cardiomyopathy. He also has diabetic nephropathy and stage IV renal failure. He does not respond to diuresis as well as what I would be hoping for and his renal function remains approximately stable. I am afraid that his tremor actually does indicate early neurologic impairment related to renal dysfunction. Even though I do not appreciate any other signs of uremia, the fact that this renal function if anything is slightly worse indicates that he indeed will likely have a progressive renal failure. He is being taken for placement of permanent dialysis catheter as we speak, which I think is certainly reasonable. From my perspective, I will continue current management with vasodilators, diuresis and beta-blockers. He is not a candidate for angiotensin-converting enzyme (LESLY) inhibitor or ARB due to renal dysfunction, but if dialysis is started we certainly can reintroduce them. As far as coronary artery disease is concern, he has no is no anginal symptoms and it has been mostly stable.
[2017-03-05] MEDS ORDERED: amLODIPine 5 MG TAB PO SCH (09:00)
[2017-03-05] MEDS: MIRALAX *UNIT DOSE* 17GM PACKET PO SCH (09:00)
[2017-03-05] MEDS: CALCIUM/VITAMIN D 250 MG TABLET PO SCH ×2 (09:00→22:19)
[2017-03-05] MEDS: SENOKOT S TAB PO SCH ×2 (09:00→21:00)
[2017-03-05] MEDS: CARVedilol 6.25 MG TAB PO SCH ×2 (09:39→22:20)
[2017-03-05] MEDS: **hydrALAZINE HCL** 25 MG TAB PO SCH ×3 (09:39→21:00)
[2017-03-05] MEDS: ASPIRIN 81 MG ENTERIC TAB PO SCH (09:39)
[2017-03-05] MEDS: LIDOCAINE 5% (LIDODERM) PATCH TD SCH (09:40)
[2017-03-05] MEDS: CALCITRIOL 0.25 MCG CAP (S0169) PO SCH (09:40)
[2017-03-05] MEDS: LEVEMIR (INSULIN DETEMIR) 1 UNITS/0.01ML SC SCH (09:42)
[2017-03-05] MEDS ORDERED: HEPARIN 1,000 UNITS/ML 10ML VIAL (FOR RADIOLOGY& DIALYSIS ONLY) IV ONE (11:00)
[2017-03-05 13:54] LABS: HEPATITIS B SURFACE ANTIBODY NEGATIVE (POSITIVE)
--- NOTE | 2017-03-05 14:34 | IPNPDOC ---
Text Note Date of Service The patient was seen on 03/05/17. NOTE Subjective: Patient denies chest pain/shortness of breath/palpitations. Will be going for hemodialysis today. Objective: Vitals: (see below) General: No acute distress, laying comfortably in bed. HEENT: Moist mucous membranes. Neck: No JVD or lymphadenopathy. Right dialysis catheter in place. No bleeding noted. Cardiac: RRR, No murmurs Pulm: Diminished breath sounds are coarse crackles at the bases bilaterally. No wheezing, rhonchi Abd: NT/ND + BS Ext: Trace edema bilateral lower extremities. No cyanosis. Alert and oriented 3. Does not appear confused. Labs (see below) Images: CT chest 03/02/20 IMPRESSION: Moderate cardiomegaly. Moderate bilateral pleural effusions. Passive atelectatic airspace disease of the lower lobes. CT abdomen and pelvis IMPRESSION: Sigmoid diverticulitis. No perforation or abscess formation. Mild hepatomegaly. Cholelithiasis. Large fecal stasis. CT lumbar spine. 03/02/17 IMPRESSION: 1. No fracture or spondylolisthesis. 2. Straightening of lumbar lordosis is seen, suggesting muscular spasm. 3. At L4-L5 and L5-S1, broad-based disk protrusion in conjunction with hypertrophic facet disease results in moderate bilateral foraminal narrowing. . Canal is mildly stenotic. 4. At L3-L4, broad-based disk bulge, results in mild bilateral foraminal narrowing. Canal is patent. Assessment/Plan 1. Acute Decompensated systolic/diastolic heart failure; patient with known ischemic cardiomyopathy EF 30-35% , status post ICD . Has a history of CAD status post CABG. Was initially tempted to be diuresed however did not diurese very well to diuretics. Patient is currently undergoing hemodialysis given his concomitant renal failure. Continue aspirin/beta blockers/isosorbide dinitrate/ hydralazine; no LESLY inhibitor/ARB at this time given his renal failure. Cardiology on board. 2. Acute renal failure with a history of chronic kidney disease. Patient did have his dialysis catheter placed on 03/04 and is having hemodialysis started . Nephrology on board 3. Hypertension- better control today. Hydralazine has been increased yesterday. On Lasix/spironolactone/beta blockers/isosorbide dinitrate. 4. Right elbow bursitis- seen by orthopedics with ruminations for outpatient follow-up. Elevation, avoiding bending of the elbow was recommended. 5. Severe lower back pain- CT lumbar spine (see above). Pain control. Unable to obtain MRI patient has AICD. His occult therapy. 6. Bilateral foot ulcers- seen by Dr. Ernestina Rosado. Continue wound dressing. Wound care. 7. Chronic anemia- likely secondary to chronic disease. Hemoglobin stable. No need for transfusion at this time. We will continue to monitor. 8. Diabetes mellitus- continue current insulin regimen. 9. History of COPD- status post bilateral femoral popliteal artery bypass, on aspirin/statins/Plavix. Continue to monitor. No signs of cyanosis. DVT prophylaxis- heparin subcutaneous Prognosis is very poor as the patient has severe vasculopath with decompensated heart failure and progression towards hemodialysis. We'll continue to monitor in PCU. VS,Fishbone, I+O VS, Fishbone, I+O Laboratory Tests 03/05/17 05:01 Red Blood Count 3.29 L, Mean Corpuscular Volume 88.4, Mean Corpuscular Hemoglobin 28.3, Mean Corpuscular Hemoglobin Concent 32.0, Red Cell Distribution Width 16.1 H, Neutrophils (%) (Auto) 65.7, Lymphocytes (%) (Auto) 19.6 L, Monocytes (%) (Auto) 7.9 H, Eosinophils (%) (Auto) 2.5, Basophils (%) ( Auto) 0.8, Neutrophils # (Auto) 3.4, Lymphocytes # (Auto) 1.0 L, Monocytes # ( Auto) 0.4, Eosinophils # (Auto) 0.1, Basophils # (Auto) 0.0, Calcium Level 8.5 L , Aspartate Amino Transf (AST/SGOT) 15, Alanine Aminotransferase (ALT/SGPT) 31, Alkaline Phosphatase 442 H, Total Bilirubin 0.4, Total Protein 7.3, Albumin 3.0 L Vital Signs Date Time Temp Pulse Resp B/P (MAP) Pulse Ox O2 Delivery O2 Flow Rate FiO2 03/05/17 12:00 97.0 65 20 168/66 (100) 91 Room Air 03/03/17 16:00 I&O- Last 24 Hours up to 6 AM 03/05/17 06:00 Intake Total 500 ml Output Total 1300 ml Balance -800 ml ABED,MURTAZA MD Mar 05, 2017 14:34
--- NOTE | 2017-03-05 14:39 | IPN ---
DATE: 03/04/2017 SUBJECTIVE: The patient is seen today at the bedside today. He has a sitter present. The patient was significant restless overnight and had tugging at his Jordan catheter. This morning, he is drowsy and arousable to tactile stimulus and verbal stimulus. He gives short answers and falls back to sleep. Per the sitter at the bedside, the patient was awake earlier and had eaten his entire breakfast tray without issue. REVIEW OF SYSTEMS: Limited secondary to the patient's clinical condition. He does deny chest pain, shortness of breath. VITAL SIGNS: Temperature 97.2, pulse 68, respiratory rate 20, blood pressure 150/80, saturating 92% on room air. Intake not recorded. Urine output 1500 mL out of the Jordan catheter. Weight on the bed scale 90.3 kg. PHYSICAL EXAMINATION: The patient is lying flat in bed with one pillow. He is somnolent and drowsy, arousable to verbal and tactile stimulus. He gives short one to two word answers to questions and then falls back to sleep. HEENT: Moist mucous membranes. Extraocular muscles intact. NECK: Supple without distention of jugular vein. PULMONARY: Bilateral audible air entry on room air. Decreased at bases CARDIOVASCULAR : S1, S2. Regular rate. 2+ radial pulse ABDOMEN: Soft, nontender. No guarding or rebound tenderness. GENITOURINARY: Jordan catheter in place. EXTREMITIES: No edema. NEUROLOGIC: Somnolent, drowsy. PSYCHIATRIC: Somnolent at the time of my visit, however, previously reported to be agitated. Sitter currently at the bedside. LABORATORY DATA: White count 6.2, hemoglobin 9.3, platelets 147. Coagulation: INR 1.0. Glucose 133, sodium 141, potassium 4.7, bicarbonate 32, BUN 84, creatinine 3.4, magnesium 2.7. INPATIENT MEDICATIONS: Reviewed. The patient was started on amlodipine 5 mg by mouth daily by the primary team. He continues on calcitriol 0.25 mg daily, carvedilol 6.25 mg twice a day, Lasix 80 mg IV twice a day, hydralazine 50 mg by mouth three times a day, Isordil 20 mg by mouth every 8 hours. His Lyrica dose was decreased to 75 mg daily by myself ASSESSMENT AND PLAN: This is a 71-year-old male with past medical history of ischemic systolic cardiomyopathy with ejection fraction of 30 to 35%, chronic kidney disease stage IV, history of dialysis times two sessions in the past, status post coronary artery bypass graft (CABG), status post AICD, hypertension, peripheral arterial disease, status post bilateral femoral popliteal bypass, insulin-dependent diabetes, who has had recurrent admissions for decompensated heart failure, acute on chronic renal insufficiency. 1. Metabolic encephalopathy. The patient was noted to be somnolent today. He has been agitated overnight and is now on a one to one sitter. His BUN is 80s. His encephalopathy is likely multifactorial from lyrica accumulation and early uremia. I spoke with the patient's daughter, Vanessa Baumann, regarding initiation of chronic hemodialysis. At this time, with the patient's cardiomyopathy and recurrent admissions for decompensated heart failure and his advancing chronic kidney disease stage IV and now his encephalopathy, I believe that it is prudent to initiate him on hemodialysis. I discussed with his daughter, who agrees for the same. Dr. Nolasco has been consulted for line placement and we will plan for first hemodialysis session tomorrow, 03/05/2017. 2. Congestive heart failure (CHF). The patient remains on fluid restriction and Lasix 80 mg IV twice a day. Today, he is seen lying flat in bed. He is on room air. He does not seem overtly volume overloaded at this time. Repeat chest x-ray shows unchanged pleural effusion, basilar infiltrates and vascular congestion. Initiating him on chronic hemodialysis should help with his overall volume management and decrease his readmissions for decompensated heart failure. 3. Hyperkalemia. Potassium has been stable on 2 gram potassium diet with spironolactone on hold and Lasix for kaliuresis. 4. Hypertension. He is started on Norvasc 5 mg daily by the primary team. He continues on carvedilol 6.25 mg twice a day and hydralazine 50 mg by mouth three times a day, Isordil 20 mg by mouth every 8 hours. His BP should improve with serial hemodialysis. Plan of care was discussed with the patient's daughter, Vanessa Baumann, and with Dr. John Neri. AL[facility] HYDE MEDICAL CENTERJocelyn
[2017-03-05] MEDS ORDERED: DARBEPOETIN 100 MCG/0.5 ML *DIALYSIS* SYRINGE (J0882) IV SCH (16:45)
[2017-03-05] MEDS: PREGABALIN 75 MG CAP(LYRICA) PO SCH (17:08)
[2017-03-05] MEDS: OMEPRAZOLE 20 MG CAP PO SCH (17:09)
[2017-03-05] MEDS: CLOPIDOGREL 75 MG TAB PO SCH (17:14)
[2017-03-05] MEDS: PERCOCET 5MG/325MG TAB PO PRN (17:15)
[2017-03-05] MEDS: ONDANSETRON 4MG/2ML VIAL (J2405) IV PRN (17:45)
[2017-03-05] MEDS: **NOTE PATIENT COMMENT** MISC XX SCH (21:00)
[2017-03-05] MEDS: ROSUVASTATIN 10 MG TAB (CRESTOR) PO SCH (22:19)
[2017-03-06] MEDS: IPRATROPIUM 0.5MG/ALBUTEROL 2.5MG INH SOL UD 3ML (DUONEB)(J7620) NEB SCH ×4 (01:36→19:42)
[2017-03-06] MEDS: PERCOCET 5MG/325MG TAB PO PRN ×2 (01:38→23:30)
[2017-03-06 04:20] VITALS: BP 150/66
[2017-03-06 05:35] LABS: BASO % 0.5 % (0.0-1.0); EOS # 0.2 K/mm3 (0.0-0.50); EOS % 3.2 % (0.0-3.0); LARGE UNSTAINED CELL # 0.2 K/mm3 (0.0-0.4); LARGE UNSTAINED CELL % 2.8 % (0.0-4.0); LYMPH # 1.3 K/mm3 (1.5-4.5); LYMPH % 18.8 % (24.0-44.0); MEAN CORPUSCULAR HEMOGLOBIN 27.9 pg (27.0-33.0); MEAN CORPUSCULAR HGB CONC 31.3 g/dl (32.0-36.5); MEAN CORPUSCULAR VOLUME 89.2 fl (80.0-96.0); MONO # 0.6 K/mm3 (0.0-0.8); MONO % 10.9 % (0.0-5.0); NEUTROPHILS # 3.7 K/mm3 (1.8-7.7); NEUTROPHILS % 63.7 % (36.0-66.0); PLATELET COUNT, AUTOMATED 143 k/mm3 (150-450); RED CELL DISTRIBUTION WIDTH 16.1 % (11.5-14.5); WHITE BLOOD COUNT 5.8 K/mm3 (4.0-10.0)
[2017-03-06] MEDS: ISOSORBIDE DIN. (ISORDIL) 20 MG TAB PO SCH ×3 (05:36→23:22)
[2017-03-06] MEDS: LEVOTHYROXINE 50MCG TABLET (0.05MG) PO SCH (05:36)
[2017-03-06] MEDS: ONDANSETRON 4MG/2ML VIAL (J2405) IV PRN (05:36)
[2017-03-06] MEDS: HEPARIN SOD (PORCINE) 5000 UNITS/ML VIAL SC SCH ×4 (05:36→23:23)
[2017-03-06 05:53] LABS: ALBUMIN/GLOBULIN RATIO 0.77 (1.00-1.93); BILIRUBIN,TOTAL 0.4 MG/DL (0.2-1.0); CALCIUM LEVEL 7.7 MG/DL (8.8-10.2); CREATININE FOR GFR 2.65 MG/DL (0.70-1.30); GLOMERULAR FILTRATION RATE 25.5 (>42); MAGNESIUM LEVEL 2.5 MG/DL (1.8-2.4); POTASSIUM SERUM 4.4 MEQ/L (3.5-5.1); TOTAL PROTEIN 6.9 GM/DL (6.4-8.2)
[2017-03-06 05:59] LABS: PERCENT SATURATION 15.6 % (19.7-50.0); PHOSPHORUS LEVEL 4.2 MG/DL (2.5-4.9)
[2017-03-06] MEDS: HumaLOG INSULIN (NovoLOG) PER UNIT SC SCH ×4 (07:32→21:00)
[2017-03-06 08:00] VITALS: BP 159/70
--- NOTE | 2017-03-06 08:54 | IPN ---
DATE: 03/06/2017 Mr. Drake was started on dialysis yesterday evening and they were able to remove about a liter of fluid and he already feels much better. Also, the tremor that was present yesterday is improved, besides his dyspnea. This morning, his vital signs reveal a blood pressure 159/70, heart rate has been in 50s and 60s. He is afebrile. Saturation is 92% on room air. Weight is 87.7 kg. He is alert and oriented times three. His jugular venous pulse (JVP) is still about 3 cm above clavicle. Lungs are much clearer, even though he still has some faint rhonchi and crackles over both bases. Heart exam reveals regular rhythm. There is still a high pitched musical murmur at the apex, about 2/6 in intensity. Abdomen is soft, nontender. Extremities have no significant edema. There is a new dialysis catheter in through the right IJ. ASSESSMENT/PLAN: Mr. Drake is a 71-year-old man who has ischemic cardiomyopathy with severe LV systolic dysfunction and no acute on chronic systolic/diastolic congestive heart failure. The situation was further complicated by progressive renal failure. He was initiated on dialysis yesterday. He still makes a decent amount of urine. I reviewed the notes of the primary team and nephrology. I think that from my perspective the decision about changing medications was down to hope whether that there is still potential that he can come off dialysis. If that is something that is a consideration, and I will leave this to nephrology, then I would to not change his medications fundamentally. I do not believe there is much role for amlodipine in the setting of taking high dose of hydralazine because the mechanism of action is virtually identical and in my textbook it does not make much sense to combine those two medications. On the other hand, if it is believed that he will stay on dialysis permanently, then I would give him an LESLY inhibitor to replace hydralazine or at least to be able to reduce the dose of hydralazine. The outcomes of people with congestive heart failure are certainly better when they can utilize LESLY inhibitors compared to purely vasodilating agents. Even though the tested population was not dialyzed and it is not completely clear that the benefit transferred to dialyzed population, it is still the current recommendation. Otherwise, the remaining medications I would leave unchanged. [facility]
[2017-03-06] MEDS: SENOKOT S TAB PO SCH ×2 (09:00→23:22)
[2017-03-06] MEDS: MIRALAX *UNIT DOSE* 17GM PACKET PO SCH (09:00)
[2017-03-06] MEDS: CALCIUM/VITAMIN D 250 MG TABLET PO SCH ×2 (10:01→23:22)
[2017-03-06] MEDS: **hydrALAZINE HCL** 25 MG TAB PO SCH ×3 (10:01→21:00)
[2017-03-06] MEDS: CALCITRIOL 0.25 MCG CAP (S0169) PO SCH (10:01)
[2017-03-06] MEDS: CLOPIDOGREL 75 MG TAB PO SCH (10:01)
[2017-03-06] MEDS: CARVedilol 6.25 MG TAB PO SCH ×2 (10:02→23:21)
[2017-03-06] MEDS: PREGABALIN 75 MG CAP(LYRICA) PO SCH (10:02)
[2017-03-06] MEDS: OMEPRAZOLE 20 MG CAP PO SCH (10:02)
[2017-03-06] MEDS: ASPIRIN 81 MG ENTERIC TAB PO SCH (10:03)
[2017-03-06] MEDS: LEVEMIR (INSULIN DETEMIR) 1 UNITS/0.01ML SC SCH (10:04)
[2017-03-06] MEDS: LIDOCAINE 5% (LIDODERM) PATCH TD SCH (10:04)
--- NOTE | 2017-03-06 11:25 | IPN ---
DATE OF SERVICE: 03/05/2017 SUBJECTIVE: The patient is seen today on hemodialysis. He had a right IJ PermaCath placed today by Dr. Nolasco. He was seen earlier in a stretcher lying flat without any pillow and comfortable. He denies any shortness of breath at this time, palpitations or chest pain. The patient continues to require a sitter and notes ongoing tremor in the hands. REVIEW OF SYSTEMS: Negative for headache, dizziness, chest pain, shortness of breath, palpitations, nausea, vomiting, or diarrhea. Positive for tremor in the hands and nighttime agitation. Remainder of review of systems is negative. VITAL SIGNS: Temperature 97.0, pulse 65, respiratory rate 20, blood pressure 168/66, saturating 91% on room air. INTAKE AND OUTPUT: Intake is not recorded in total. Urine output is 1750 mL. His weight on the bed scale is 90.8 kg. PHYSICAL EXAMINATION: The patient is seen on hemodialysis. He is awake, alert, oriented times three at this time in no acute distress. HEENT: Moist mucous membranes. Extraocular muscles intact. NECK: Improvement in jugular venous distention (JVD). Right IJ PermaCath present. LUNGS: Mild bibasilar crackles, otherwise clear. CARDIAC: S1, S2. Regular rhythm, 2+ radial pulses. No peripheral edema. No dependent edema. ABDOMEN: Soft, nontender. NEUROLOGIC: Alert and oriented times three, appropriately interactive and conversational. Tremor of the hands. PSYCHIATRIC: Appropriate mood and affect. LABORATORY DATA: White count 5.2, hemoglobin 9.3, platelets 151. Sodium 143, potassium 4.5, bicarbonate 31, BUN 84, creatinine 3.4, GFR 18 mL per minute, corrected calcium 9.3, magnesium 2.7 Microbiology: Blood Cx's no growth to date Inpatient Medications: reviewed by myself Assessment and Plan: This is a 71-year-old male with past medical history of ischemic systolic cardiomyopathy with ejection fraction of 30 to 35%, chronic kidney disease stage IV, history of dialysis times two sessions in the past, status post coronary artery bypass graft (CABG), status post AICD, hypertension, peripheral arterial disease, status post bilateral femoral popliteal bypass, insulin-dependent diabetes, who has had recurrent admissions for decompensated heart failure, acute on chronic renal insufficiency. 1. Metabolic encephalopathy, tremor; likely multifactorial from lyrica accumulation and early uremia. Both components should improve with dialysis. Had permacath placed and is receiving hemodialysis treatment without issue. 2. Congestive heart failure (CHF). The patient remains on fluid restriction and I will discontinue Lasix IV. He is an excellent candidate for continuation of oral diuretics while on chronic hemodialysis. Today, he is seen lying flat in bed. He is on room air. He does not seem overtly volume overloaded at this time. Repeat chest x-ray shows unchanged pleural effusion, basilar infiltrates and vascular congestion. Initiating him on chronic hemodialysis should help with his overall volume management and decrease his readmissions for decompensated heart failure. I would not initiate RAAS blockade at this time. If pt is compliant with renal diet as an outpatient and does not miss his chronic hemodialysis sessions; and his predialysis K is controlled, then he would be an excellent candidate for RAAS blockade. As he has significant residual renal function he is at risk for hyperkalemia from LESLY / ARB and so initiation should be done after several serial predialysis K's are normokalemic. 3. Hyperkalemia. Potassium has been stable on 2 gram potassium diet with spironolactone on hold and Lasix for kaliuresis. Will monitor predialysis serum K as an outpatient, if he remains normokalemic then he would benefit from RAAS blockade. 4. Hypertension. His BP should improve with serial hemodialysis. RAAS blockade initiation as above. Discharge Planning: Requested social work consult for outpatient dialysis set up. [facility]
[2017-03-06 11:47] VITALS: BP 168/73
[2017-03-06] MEDS ORDERED: HEPARIN 1,000 UNITS/ML 10ML VIAL (FOR RADIOLOGY& DIALYSIS ONLY) XX ONE (15:00)
[2017-03-06] MEDS ORDERED: HEPARIN 1,000 UNITS/ML 10ML VIAL (FOR RADIOLOGY& DIALYSIS ONLY) IV ONE (15:00)
[2017-03-06 18:05] VITALS: BP 120/62
[2017-03-06] MEDS ORDERED: IRON SUCROSE 100MG 5ML VIAL (J1756 PER 1MG) IV SCH (20:00)
--- NOTE | 2017-03-06 20:25 | IPNPDOC ---
Text Note Date of Service The patient was seen on 03/06/17. NOTE CC:The patient is a 71-year-old male admitted with a reason for visit of Acute On Chronic Systolic Chf. Subjective: Patient is feeling better today. Patient is also sleepy on exam. Reported not sleeping well last night. He is more with it than he had been on previous exams. States that he tolerated dialysis yesterday. His had dialysis in the past. Patient reports he is eating okay. Objective: Vitals: (see below) General: No acute distress, laying comfortably in bed. HEENT: Moist mucous membranes. Neck: No JVD or lymphadenopathy Cardiac: RRR. Systolic murmur 2/6 best heard left sternal border. Pulm: Diminished breath sounds at the bases b/l. No wheezing, rhonchi Abd: Bowel sounds auscultation. No tenderness to palpation. Ext: No edema or cyanosis Labs (see below) Assessment/Plan 1. Decompensated heart failure, systolic. EF 30-35%. Appreciate cardiology's assistance in management of this patient's time. Continue aspirin/beta blockers/isosorbide dinitrate/hydralazine; no LESLY inhibitor/ARB at this time given his renal failure. Recent BMP measured 1180. Improved with HD. 2. Acute on chronic renal failure stage 4, with progression to HD. Patient has failed diuresis. Hemodialysis was started yesterday. Patient's BUN decreased 44 today. Appreciate nephrology's assistance in management of this patient's time. Patient will receive more hemodialysis later today. 3. Iron deficiency anemia Patient has a low iron and normal TIBC with a normal ferritin. We'll start patient on some iron supplementation. 4. Chronic anemia Patient has anemia chronic disease with some underlying iron deficiency anemia. We'll continue to follow at this time. 5. Hypertension Continue patient's medications at this time. 6. Olecranon bursitis. Continue to follow at this time. 7. Foot ulcers. Appreciate Dr. Forbes's assistance in care of this patient. Continue wound care dressings daily. 8.History of coronary artery disease- status post CABG, on aspirin/statins/ Plavix. 9. Implantable defibrillator. DVT prophy: Heparin Dispo: Continue to monitor patient's volume status. Will need more dialysis. VS,Fishbone, I+O VS, Fishbone, I+O Laboratory Tests 03/06/17 05:04 Red Blood Count 3.31 L, Mean Corpuscular Volume 89.2, Mean Corpuscular Hemoglobin 27.9, Mean Corpuscular Hemoglobin Concent 31.3 L, Red Cell Distribution Width 16.1 H, Neutrophils (%) (Auto) 63.7, Lymphocytes (%) (Auto) 18.8 L, Monocytes (%) (Auto) 10.9 H, Eosinophils (%) (Auto) 3.2 H, Basophils (% ) (Auto) 0.5, Neutrophils # (Auto) 3.7, Lymphocytes # (Auto) 1.3 L, Monocytes # (Auto) 0.6, Eosinophils # (Auto) 0.2, Basophils # (Auto) 0.0, Calcium Level 7.7 L, Aspartate Amino Transf (AST/SGOT) 15, Alanine Aminotransferase (ALT/SGPT) 25 , Alkaline Phosphatase 422 H, Total Bilirubin 0.4, Total Protein 6.9, Albumin 3.0 L Vital Signs Date Time Temp Pulse Resp B/P (MAP) Pulse Ox O2 Delivery O2 Flow Rate FiO2 03/06/17 18:20 Room Air 03/06/17 18:13 120/62 03/06/17 18:05 97.8 64 20 93 03/06/17 02:08 2.0 I&O- Last 24 Hours up to 6 AM 03/06/17 06:00 Intake Total 1140 ml Output Total 2550 ml Balance -1410 ml GME ATTESTATION GME ATTESTATION My preceptor for this patient encounter was Dr. Neri and he was physically present in the building during the encounter and was fully available. As needed , all aspects of the patient interview, examination, medical decision making process, and medical care plan development were reviewed and approved by the preceptor. Preceptor is aware and concurs with the plan as stated in the body of this note and will attest to such by his/her co-signature. LULU WALKER DO Mar 06, 2017 20:06 MURTAZA NERI MD Mar 07, 2017 07:26
[2017-03-06] MEDS: **NOTE PATIENT COMMENT** MISC XX SCH (21:00)
[2017-03-06 23:10] VITALS: BP 139/65
[2017-03-06] MEDS: ROSUVASTATIN 10 MG TAB (CRESTOR) PO SCH (23:22)
[2017-03-06 23:59] VITALS: BP 118/56
[2017-03-07] MEDS: IPRATROPIUM 0.5MG/ALBUTEROL 2.5MG INH SOL UD 3ML (DUONEB)(J7620) NEB SCH ×2 (02:00→07:26)
[2017-03-07 04:32] VITALS: BP 135/60
[2017-03-07] MEDS: HEPARIN SOD (PORCINE) 5000 UNITS/ML VIAL SC SCH (06:00)
[2017-03-07 06:09] LABS: ALBUMIN 3.1 GM/DL (3.2-5.2); ALBUMIN/GLOBULIN RATIO 0.72 (1.00-1.93); BILIRUBIN,TOTAL 0.4 MG/DL (0.2-1.0); CALCIUM LEVEL 8.8 MG/DL (8.8-10.2); CREATININE FOR GFR 2.94 MG/DL (0.70-1.30); GLOMERULAR FILTRATION RATE 22.6 (>42); MAGNESIUM LEVEL 2.3 MG/DL (1.8-2.4); POTASSIUM SERUM 4.6 MEQ/L (3.5-5.1); TOTAL PROTEIN 7.4 GM/DL (6.4-8.2)
[2017-03-07] MEDS: LEVOTHYROXINE 50MCG TABLET (0.05MG) PO SCH (06:18)
[2017-03-07] MEDS: ISOSORBIDE DIN. (ISORDIL) 20 MG TAB PO SCH (06:18)
[2017-03-07 08:00] VITALS: BP 127/62
[2017-03-07] MEDS: LEVEMIR (INSULIN DETEMIR) 1 UNITS/0.01ML SC SCH (08:46)
[2017-03-07] MEDS: HumaLOG INSULIN (NovoLOG) PER UNIT SC SCH ×2 (08:46→12:24)
[2017-03-07] MEDS: ASPIRIN 81 MG ENTERIC TAB PO SCH (08:47)
[2017-03-07] MEDS: OMEPRAZOLE 20 MG CAP PO SCH (08:47)
[2017-03-07] MEDS: PREGABALIN 75 MG CAP(LYRICA) PO SCH (08:47)
[2017-03-07] MEDS: CALCITRIOL 0.25 MCG CAP (S0169) PO SCH (08:47)
[2017-03-07] MEDS: CLOPIDOGREL 75 MG TAB PO SCH (08:48)
[2017-03-07] MEDS: CARVedilol 6.25 MG TAB PO SCH (08:48)
[2017-03-07] MEDS: SENOKOT S TAB PO SCH (08:48)
[2017-03-07] MEDS: CALCIUM/VITAMIN D 250 MG TABLET PO SCH (08:48)
[2017-03-07] MEDS: MIRALAX *UNIT DOSE* 17GM PACKET PO SCH (08:49)
[2017-03-07] MEDS: LIDOCAINE 5% (LIDODERM) PATCH TD SCH (08:58)
[2017-03-07 09:00] VITALS: BP 135/60
[2017-03-07] MEDS ORDERED: **hydrALAZINE** 50 MG TAB PO SCH (09:00)
[2017-03-07] MEDS ORDERED: SLF 3 ML SYR IV PRN (10:45)
--- NOTE | 2017-03-07 10:51 | IPN ---
DATE: 03/07/2017 Mr. Drake is asking me to let him go home. He says that he is feeling much better after two sessions of dialysis. Denies significant dyspnea. Denies palpitations. I reviewed his telemetry tracings and there were no significant arrhythmias other than occasional PVCs. Vital signs: Blood pressure 135/60, heart rate has been in 60s. He is afebrile. Saturation is 96% room air. Fluid balance yesterday was about 1600 negative. 2 liters were removed during dialysis. Weight is 86.8 kg. He is alert and oriented and appropriate. His jugular venous pulse (JVP) does not appear elevated above clavicle in sitting position. Lungs reveal only very fine inspiratory crackles over maybe 1/5 of both lung ramos. Heart exam regular rhythm. There is unchanged murmur at the apex. Abdomen is obese but soft. There is no significant edema. Laboratory tanner: Hemoglobin 9.2, hematocrit is 29, platelet count 143,000. Basic metabolic panel: Potassium 4.6, BUN 2.9 and creatinine 1.36. ASSESSMENT AND PLAN: Mr. Drake is 71-year-old man who has ischemic cardiomyopathy and he had resulting systolic/diastolic congestive heart failure. He presented with acute exacerbation in setting of stage IV renal insufficiency. The decision was made to initiate dialysis as the patient had several episodes of tremor that probably represented early sign of uremia. He had he is much better in that regard and that symptoms completely resolved. The dialysis also has been very successful in removing volume. I do not have any new recommendations compared to my recommendations dictated yesterday. Again, if it is felt that the dialysis will become permanent, which I think it is likely, I would recommend to discontinue hydralazine and start him on angiotensin-converting enzyme (LESLY) inhibitor. Otherwise, I think the remaining medications should be as they are. Also of note, he was started on thyroid supplementation. That will need to be followed on outpatient basis. I intend to see the patient in approximately 2-3 weeks.
[2017-03-07] MEDS ORDERED: CARV6.25 PO (11:29)
[2017-03-07] MEDS ORDERED: TORS20TA2 PO (11:29)
[2017-03-07] MEDS ORDERED: CARV12.5 PO (11:29)
[2017-03-07] MEDS ORDERED: LEVO50TA5 PO (11:29)
[2017-03-07] MEDS ORDERED: HYDR-3911 PO (11:29)
[2017-03-07] MEDS ORDERED: SLF 3 ML SYR IV SCH (14:00)
--- NOTE | 2017-03-07 20:40 | DS.PDOC ---
Discharge Summary General Date of Admission Mar 02, 2017 at 02:24 Date of Discharge 03/07/17 Primary Care Physician: Iliana Barragan Attending Physician: MURTAZA JANE MD Specialist/Consultants Involve: Abhijit Mcpherson MD Specialist/Consultants Involve DO Andrei Sidhu MD Discharge Summary PROCEDURES PERFORMED DURING STAY: HD, dialysis catheter ADMITTING DIAGNOSES: 1. Decompensated heart failure 2. Acute on chronic kidney disease 3. Chronic anemia DISCHARGE DIAGNOSES: 1. Decompensated Heart Failure, Systolic, 30%-35% 2. Acute on Chronic kidney disease 3. Chronic Anemia 4. HTN 5. Right elbow bursitis 6. DM 7. COPD 8. Chronic back pain. COMPLICATIONS/CHIEF COMPLAINT: Acute On Chronic Systolic Chf. HISTORY OF PRESENT ILLNESS: Patient is a 71-year-old male with past medical history significant for systolic heart failure with reduced ejection fraction of 30%, decompensated heart failure, severe coronary artery disease with multiple stents and CABG, aortic valve sclerosis and mild stenosis, hypertension , type 2 diabetes, peripheral artery disease, bilateral calcaneal ulcers presented to ER with severe sweating and shortness of breath. Patient has been having increased shortness of breath and worsening chest pain lately. On Friday morning of admission he fell out of bed having severe chest pain and right lower chest. He does have a history of angina. The patient was complaining of feeling bloated and having swelling to prevent putting on his shoes. Patient was scheduled to see orthopedist to deal with his elbow bursitis. Patient is also scheduled to see Dr. jackson for peripheral vascular disease. On admission patient had severe back pain, most likely chronic, ordered CT of back which showed some stenosis, interpretation below. Patient had bloating and distension of abdomen, abdomen and pelvis CT was ordered and showed nothing acute. Patient also had chest pain, CT ordered, interpretation below. Because patient was supposed to have elbow procedure done, elbow radiograph was ordered , results below. HOSPITAL COURSE: While in the hospital patient was consulted by nephrology and cardiology. Patient was first admitted to the ICU. Patient was initially diuresed with medical management. Patient however failed this and was started on inpatient dialysis. Patient received 2 times of dialysis. Patient was also consulted by Dr. Forbes for wound care. Patient had his ulcers wounds looked at and change daily. Patient's blood pressure was managed while in the hospital. Patient had repeat inpatient dialysis and will be sent home for outpatient dialysis. DISCHARGE MEDICATIONS: Please see below. ALLERGIES: Please see below. PHYSICAL EXAMINATION ON DISCHARGE: VITAL SIGNS: Please see below. GENERAL: Alert. Orientated. No acute distress. HEENT: Atraumatic. NECK: No thyromegaly or enlarged masses. Supple. CARDIOVASCULAR EXAMINATION: Systolic murmur 2/6 best heard left sternal border. RESPIRATORY EXAMINATION: Diminished breath sounds. No rales or wheezing. ABDOMINAL EXAMINATION: Nondistended. Bowel sounds to auscultation. No tenderness to palpation. EXTREMITIES: Distal pulses intact. No lower extremity edema. SKIN: No rashes or lesions. NEUROLOGICAL EXAMINATION: Speech intact PSYCHIATRIC EXAMINATION: Affect normal LABORATORY DATA: Please see below. IMAGING: Chest X-ray in ER: Cardiomegaly, status post pacemaker and median sternotomy. Small left pleural effusion. CHF pattern. Lumbar CT:1. No fracture or spondylolisthesis. 2. Straightening of lumbar lordosis is seen, suggesting muscular spasm. 3. At L4-L5 and L5-S1, broad-based disk protrusion in conjunction with hypertrophic facet disease results in moderate bilateral foraminal narrowing. . Canal is mildly stenotic. 4. At L3-L4, broad-based disk bulge, results in mild bilateral foraminal narrowing. Canal is patent. Chest CT: Moderate cardiomegaly. Moderate bilateral pleural effusions. Passive atelectatic airspace disease of the lower lobes. Abdomen/ pelvis CT: Sigmoid diverticulitis. No perforation or abscess formation. Mild hepatomegaly. Cholelithiasis. Large fecal stasis. Elbow radiograph: Lexis olecranon soft tissue swelling consistent with olecranon bursitis. Repeat chest radiograph: Essentially stable exam. PROGNOSIS: Stable. ACTIVITY: As tolerated. DIET: Renal diet. DISCHARGE PLAN: Plan is patient to be discharged home. DISPOSITION: Home Health Service. DISCHARGE INSTRUCTIONS: 1. Follow-up with primary care Dr. Iliana Barragan March 18 2. Follow-up with Dr. Mcpherson March 20. 3. Hemodialysis was started 829. Patient will have this Friday and Saturdays. DISCHARGE CONDITION: Stable. TIME SPENT ON DISCHARGE: Greater than 30 minutes. Vital Signs/I&Os Vital Signs Date Time Temp Pulse Resp B/P (MAP) Pulse Ox O2 Delivery O2 Flow Rate FiO2 03/07/17 11:59 Room Air 03/07/17 09:00 135/60 03/07/17 08:48 67 03/07/17 08:00 97.5 18 96 03/07/17 00:00 2.0 I&O- Last 24 Hours up to 6 AM 03/07/17 05:59 Intake Total 570 ml Output Total 2078 ml Balance -1508 ml Laboratory Data Labs 24H Laboratory Tests 2 03/06/17 21:23: Bedside Glucose (Misc Panel) 144H 03/06/17 23:07: Bedside Glucose (Misc Panel) 174H 03/07/17 05:21: Anion Gap 7L, Glomerular Filtration Rate 22.6L, Blood Urea Nitrogen 31H, Creatinine 2.94H, Sodium Level 141, Potassium Level 4.6, Chloride Level 104, Carbon Dioxide Level 30, Calcium Level 8.8, Aspartate Amino Transf (AST/SGOT) 13L, Alanine Aminotransferase (ALT/SGPT) 20, Alkaline Phosphatase 390H, Total Bilirubin 0.4, Total Protein 7.4, Albumin 3.1L, Magnesium Level 2.3, Albumin/ Globulin Ratio 0.72L 03/07/17 08:24: Bedside Glucose (Misc Panel) 132H 03/07/17 12:09: Bedside Glucose (Misc Panel) 131H CBC/BMP Laboratory Tests 03/07/17 05:21 Calcium Level 8.8, Aspartate Amino Transf (AST/SGOT) 13 L, Alanine Aminotransferase (ALT/SGPT) 20, Alkaline Phosphatase 390 H, Total Bilirubin 0.4 , Total Protein 7.4, Albumin 3.1 L FSBS Laboratory Tests Test 03/06/17 21:23 03/06/17 23:07 03/07/17 08:24 03/07/17 12:09 Range/Units Bedside Glucose (Misc Panel) 144 174 132 131 83-110 MG/DL Microbiology Microbiology 03/02/17 Blood Culture - Final, Complete NO GROWTH AFTER 5 DAYS 03/02/17 Blood Culture - Final, Complete NO GROWTH AFTER 5 DAYS Discharge Medications Scheduled (Procrit) 20,000 Unit/Ml Inj, 20,000 UNIT IM QMONTH, (Reported) Aspirin (Aspir-81) 81 Mg Tab, 81 MG PO DAILY, (Reported) Calcitriol (Rocaltrol) 0.25 Mcg Cap, 0.25 MCG PO DAILY, (Reported) Calcium/Vitamin D (Oyster Shell Calcium 250+ 250-125 mg-Unit) 1 Tab Tab, 1 TAB PO BID, (Reported) Carvedilol (Carvedilol) 12.5 Mg Tab, 6.25 MG PO BID Carvedilol (Carvedilol) 6.25 Mg Tab, 6.25 MG PO BID Clopidogrel Bisulfate (Clopidogrel) 75 Mg Tab, 75 MG PO DAILY, (Reported) Hydralazine HCl (Hydralazine HCl) 50 Mg Tab, 25 MG PO TID Insulin Glargine (Lantus) 1 Units/0.01 Ml Susp, 10 UNITS SC QAM, (Reported) Isosorbide Dinitrate (Isosorbide Dinitrate) 20 Mg Tab, 20 MG PO Q8H, (Reported) Levothyroxine Sodium (Synthroid) 50 Mcg Tab, 50 MCG PO DAILY@06 Omeprazole (Omeprazole) 40 Mg Cap, 40 MG PO DAILY, (Reported) Potassium Chloride (Potassium Chloride ER) 10 Meq Tab, 10 MEQ PO BID, (Reported) Pregabalin (Lyrica) 150 Mg Cap, 150 MG PO BID, (Reported) Torsemide (Torsemide) 20 Mg Tab, 40 MG PO DAILY Scheduled PRN Albuterol Sulfate (Albuterol Sulfate) 2.5 Mg/3 Ml Nebu, 1 VIAL INH QID PRN for SHORTNESS OF BREATH, (Reported) Nitroglycerin (Nitrostat) 0.4 Mg Subl, 0.4 MG SL Q5MP PRN for CHEST PAIN, ( Reported) Oxycodone/Acetaminophen (Oxycodone/Acetaminophen 5-325 mg) 1 Tab Tab, 2 TAB PO Q8H PRN for PAIN, (Reported) Allergies Coded Allergies: TURKEY (Verified Adverse Reaction, Mild, VOMITING, 10/19/16) GME ATTESTATION GME ATTESTATION My preceptor for this patient encounter was Dr. Jane and he was physically present in the building during the encounter and was fully available. As needed , all aspects of the patient interview, examination, medical decision making process, and medical care plan development were reviewed and approved by the preceptor. Preceptor is aware and concurs with the plan as stated in the body of this note and will attest to such by his/her co-signature. LULU WALKER DO Mar 07, 2017 20:16 MURTAZA JANE MD Mar 08, 2017 14:29
--- NOTE | 2017-03-07 22:11 | IPN ---
DATE: 03/06/2017 The patient is seen at the bedside this morning. He has no complaints. He tolerated hemodialysis yesterday with 1 kg ultrafiltration (UF). His tremor has resolved, and he is not requiring a sitter at the bedside. His Jordan catheter remains in place at this time. Patient is tolerating his diet and has no complaints. REVIEW OF SYSTEMS: Negative for headache, chest pain, shortness of breath, palpitations, nausea, vomiting, diarrhea. Remainder of review of systems is negative. VITAL SIGNS: Temperature 97.6, pulse 64, blood pressure 159/70, saturating 90% on room air. Intake and output: In for 1340. Hemodialysis removed 1000 mL yesterday. Urine total 1400. Weight in the bed scale 90.8 kg yesterday and 87.7 kg today. PHYSICAL EXAMINATION: GENERAL: Patient is alert, awake, oriented in no acute distress. HEENT: Moist mucous membranes. Moist tongue. Extraocular muscles intact. NECK: Right internal jugular (IJ) Perm-A-Cath. Supple. LUNGS: Bibasilar crackles present. HEART: S1, S2, regular rhythm. ABDOMEN: Soft, nontender, nondistended GENITOURINARY: Jordan with urine present. EXTREMITIES: No edema, no clubbing. Neurologic: no tremor LABORATORY DATA: White count 5.8, hemoglobin 9.2, platelets 143. Glucose 114, sodium 143, potassium 4.4, bicarbonate 30, BUN 44, corrected calcium 8.5, mg 2.5, phosphorus 4.2. Ferritin 147, iron 49, transferrin saturation 15%. PTH 107. INPATIENT MEDICATIONS: Reviewed by myself. He will be started on Venofer for iron deficiency. I will stop his milk of magnesia. Remainder of his medications are unchanged from prior. ASSESSMENT AND PLAN: 1. Advanced chronic kidney disease (CKD), stage IV, with history of recent dialysis in the recent past and recurrent admissions for decompensated heart failure and volume overload refractory to diuretics, coupled with encephalopathy and new-onset tremor. The patient has been started on chronic hemodialysis and will now continue with the same. Social work consult has been placed for outpatient dialysis setup. A BUN in the 80s with a glomerular filtration rate (GFR) of greater than 15 mL per minute is not typically associated with uremic symptoms; however, after one dialysis treatment, the patient has had significant improvement in his tremor and his mentation. Both may have been due to lyrica. 2. Chronic systolic/diastolic congestive heart failure. The patient's volume status continues to improve. He does have moderate bilateral pleural effusions. We will continue to ultrafiltrate him on dialysis. The patient has been counseled regarding fluid restriction. He does have good residual renal function, and if his volume status is refractory to management with ultrafiltration on dialysis, he would be a good candidate for oral diuretics on nondialysis days. At this time I would not start him on an angiotensin-converting enzyme (LESLY) or angiotensin receptor juan daniel (ARB); however, if in the outpatient setting he is compliant with a renal diet, and his predialysis potassiums are normokalemic, he would be very appropriate for RAAS blockade. If, however, he is noncompliant with dietary restrictions and has a high predialysis potassium, given that he does have significant renal residual function, he would have a propensity to be hyperkalemic from LESLY or ARB. 3. Anemia of chronic kidney disease. Iron studies reveal iron deficiency. We will start the patient on Venofer and continue with Aranesp. 4. Secondary hyperparathyroidism, parathyroid hormone (PTH) 107 with a stable phosphorus and corrected calcium of 8.5. The patient continues on calcitriol and will start vitamin D analog in the outpatient setting. MTDD
--- NOTE | 2017-03-08 15:49 | IPN ---
DATE: 03/07/2017 SUBJECTIVE: The patient is seen this morning at bedside. He has no complaints. He had an uneventful night last night. He is in good spirits. Reports good appetite. I spoke with the social and political studies professor. He has been set up for outpatient hemodialysis. His first treatment will be Sunday 03/11, with a chair at 3 p.m. this was communicated by myself to the patient, and the patient is now discharge pending. The patient had his Jordan removed and he reports voiding afterwards without issue. REVIEW OF SYSTEMS: Negative for headache, dizziness, chest pain, shortness of breath, palpitations, cough, nausea, vomiting, diarrhea, tremor, edema. Remainder of review of systems is negative. OBJECTIVE: VITAL SIGNS: Afebrile 97.5, pulse 67, blood pressure 135/60, saturating 96% on room air. INTAKE AND OUTPUT: The patient was dialyzed yesterday with 2000 mL ultrafiltration. He is net negative 1.6 liters. His weight in the bed scale today is 86.8 kg, down from 93 kg on admission. PHYSICAL EXAMINATION: GENERAL: Awake, alert, and oriented, interactive, appropriately conversational in no acute distress. HEENT: Extraocular muscles intact. Moist mucous membranes. NECK: Right internal jugular (IJ) PermCath. No jugular venous distention. CHEST: S1, S2. Regular rate and rhythm. 2+ radial pulse. No edema in the extremities. No sacral or dependent edema. LUNGS: Decreased breath sounds at base. Fine bibasilar crackle. Otherwise clear. ABDOMEN: Soft, obese, nontender, nondistended. GENITOURINARY (): No Jordan. EXTREMITIES: No edema or cyanosis. NEUROLOGIC: No tremor. No asterixis. Appropriately interactive and conversational. PSYCHIATRIC: Appropriate mood and affect. LABORATORY DATA: No CBC from today. Sodium 141, potassium 4.6, bicarbonate 30, creatinine 2.9, BUN 31, corrected calcium 9.5, magnesium 2.3. INPATIENT MEDICATIONS: Reviewed by myself and no changes in previous 24 hours. ASSESSMENT AND PLAN: A 71-year-old male with past medical history of ischemic systolic cardiomyopathy and diastolic dysfunction with ejection fraction 30-35%, chronic kidney disease (CKD) stage IV, progressive, with recurrent acute kidney injury (KOSTAS) and history of dialysis in the recent past, status post coronary artery bypass graft (CABG), status post automatic implantable cardioverter defibrillator (AICD), hypertension, peripheral arterial disease, status post bilateral femoral-popliteal bypass, insulin-dependent diabetes, with recurrent admissions for decompensated heart failure and acute on chronic renal insufficiency, with refractory volume overload. 1. Advanced CKD stage IV with estimated glomerular filtration rate (GFR) of 15- 18 mL per minute, systolic and diastolic cardiomyopathy with recurrent admission for refractory volume overload. The patient has now progressed to chronic hemodialysis for control of his refractory volume overload which has resulted in several inpatient admissions over the past few months, with concomitant KOSTAS, including KOSTAS requiring renal replacement therapy in the recent past. The patient also had medical encephalopathy on this admission. This is either a manifestation of early uremia which is hard to believe with a GFR of 18 mL per minute and blood urea nitrogen (BUN) of 80, or more likely due to Lyrica accumulation. His encephalopathy and tremor have cleared with dialysis, likely due to removal of drug. His pregabalin dosage has also been decreased. The patient is now set up for Friday, , Friday hemodialysis in the outpatient unit. This has been communicated to him. He will need to continue to followup with vascular as an outpatient for arteriovenous (AV) fistula creation. 2. Congestive heart failure, systolic/diastolic cardiomyopathy with ejection fraction (EF) of 30-35%. The patient is counseled on fluid restriction of 1500 mL per day. He has significant residual renal function and is an excellent candidate to continue oral diuretic therapy. He will be discharged on torsemide 40 mg by mouth daily. He remains on carvedilol. RAAS blockade initiation depending on outpatient pre-dialysis K, if normokalemic then he can be started on lisinopril 2.5 mg daily. DISCHARGE PLAN: The patient is cleared for discharge today from a renal point of view. His first outpatient hemodialysis will be Friday, 03/11, at 3:30 p.m. he is aware of the date, time and place of his dialysis. He has been counseled on fluid restriction , renal diet, and to continue his oral diuretics at home. Discharge plan has been discussed with Dr. John Neri. [facility] HOSPITALJocelyn
--- NOTE | 2017-03-20 16:50 | REPKIM ---
DATE OF PROCEDURE: 03/05/2017 PREOPERATIVE DIAGNOSIS: End-stage renal disease requiring hemodialysis. POSTOPERATIVE DIAGNOSIS: End-stage renal disease requiring hemodialysis. PROCEDURE: Ultrasound- and fluoroscopic-guided right internal jugular vein 19 cm tipped tip to cuff central venous tunneled catheter placement with a 24 cm EvenMore hemodialysis catheter. ATTENDING SURGEON: Dr. Randy Nolasco STAFF PSYCHIATRIST: Pily Moura RT ANESTHESIA: Local with 10 mL of 2% lidocaine. FLUOROSCOPIC TIME: 0.1 minutes CONTRAST: None. COMPLICATIONS: None. DRAINS: None. SPECIMENS: None. IMPLANTS: 19 cm tip to cuff EvenMore hemodialysis catheter inserted into the right internal jugular vein. INDICATION: Patient is a 71-year-old male with renal failure requiring access for hemodialysis. Patient will undergo placement of a right internal jugular vein central venous tunneled catheter. Risks, benefits, and alternative treatment options were discussed with the patient. Benefits included, but were not limited to, access for hemodialysis. Alternative treatment options included, but were not limited to, no intervention. Risks included, but were not limited to, infection, bleeding, pneumothorax, hemothorax, possible need for open surgical intervention, cerebrovascular accident, myocardial infarction, pulmonary embolus, deep venous thrombosis (DVT), loss of limb, loss of life, and poor outcome. Patient understands, accepts these risks, and consents to proceed. DESCRIPTION OF PROCEDURE: Patient was taken to the angiography suite, placed supine on the angiography room table, and then prepped and draped in a standard surgical fashion. A time-out was then conducted by myself and the team members within the room, confirming the correct patient, procedure, and laterality. Ultrasound was then used to evaluate the right internal jugular vein, which was noted to be easily compressible, widely patent, and free of thrombus. Ultrasound was then used to guide cannulation of the right internal jugular vein with a micropuncture needle after anesthetizing the overlying skin with 1% lidocaine. Real-time concurrent ultrasound guidance was used with visualization of the entry of the micropuncture needle into the right internal jugular vein with a hard copy image preserved. The micropuncture wire was advanced through the micropuncture needle, which was upsized to a micropuncture sheath. An Amplatz wire was advanced through the micropuncture sheath and into the inferior vena cava, after which the catheter was tunneled through a puncture wound in the right chest and brought out through a puncture wound at the right internal jugular vein entry site. The right internal jugular vein was then sequentially dilated under fluoroscopic guidance, and an introducer sheath was positioned. The catheter was advanced through the introducer sheath and positioned with the tip in the superior vena cava/right atrial junction. Both ports of the catheter were aspirated, noted to aspirate easily, and then flushed with heparinized saline. The catheter was secured to the right anterior chest wall using #2-0 Prolene suture after anesthetizing the overlying skin with 2% lidocaine. The puncture wound in the right neck was closed using a #3-0 Monocryl in an inverted interrupted fashion. Dressings were applied. Patient tolerated the procedure well. All instrument, sponge, and needle counts were correct at the end of the case. There were no complications. Dr. Nolasco was present for and directed the entire case. Patient was transferred to the holding area and, subsequently, to the floor in stable condition. The PermCath is stable for use for hemodialysis access. RADIOLOGIC SUPERVISION AND INTERPRETATION: The right internal jugular vein was widely patent, easily compressible, and free of thrombus under ultrasound evaluation. The ultrasound was used to guide cannulation of the right internal jugular vein with a real-time concurrent visualization of the entry of the needle into the internal jugular vein with a hard copy image preserved. The catheter was then advanced through the introducer sheath and positioned with the tip in superior vena cava/right atrial junction. Final fluoroscopic image showed the catheter to be in good position and good alignment with the tip in the superior vena cava/right atrial junction with no pneumo- or hemothorax noted.
[2017-05-09] MEDS ORDERED: ZOFR4TAB3 PO (21:52)
== END 2017-03-07 14:40 | disposition home health service (06) | DRG 291 ==
LOC: M ED 23:47 → EDBD 23:47 → M ED INP 03-02 02:24 → M ICU 03-02 05:09 → M PCU 03-03 23:15
PROVIDERS: ADMIT Internal Medicine; ATTEND Internal Medicine
PROC: 02HV33Z Insertion of Infusion Device into Superior Vena Cava, Percutaneous Approach (ICD-10-PCS; principal; 2017-03-05)
DX: I13.0 Hypertensive heart and chronic kidney disease with heart failure and stage 1 through stage 4 chronic kidney disease, or unspecified chronic kidney disease (principal); I50.43 Acute on chronic combined systolic (congestive) and diastolic (congestive) heart failure; K57.32 Diverticulitis of large intestine without perforation or abscess without bleeding; J96.11 Chronic respiratory failure with hypoxia; N17.9 Acute kidney failure, unspecified; L97.429 Non-pressure chronic ulcer of left heel and midfoot with unspecified severity; L97.419 Non-pressure chronic ulcer of right heel and midfoot with unspecified severity; N18.4 Chronic kidney disease, stage 4 (severe); N25.81 Secondary hyperparathyroidism of renal origin; I25.10 Atherosclerotic heart disease of native coronary artery without angina pectoris; E11.9 Type 2 diabetes mellitus without complications; I35.0 Nonrheumatic aortic (valve) stenosis; E11.51 Type 2 diabetes mellitus with diabetic peripheral angiopathy without gangrene; E11.621 Type 2 diabetes mellitus with foot ulcer; E66.9 Obesity, unspecified; D63.1 Anemia in chronic kidney disease; G25.1 Drug-induced tremor; E03.9 Hypothyroidism, unspecified; E87.5 Hyperkalemia; T49.0X5A Adverse effect of local antifungal, anti-infective and anti-inflammatory drugs, initial encounter; I27.2 Other secondary pulmonary hypertension; I25.5 Ischemic cardiomyopathy; M70.21 Olecranon bursitis, right elbow; E11.22 Type 2 diabetes mellitus with diabetic chronic kidney disease; E11.65 Type 2 diabetes mellitus with hyperglycemia; M54.5 Low back pain; D69.6 Thrombocytopenia, unspecified; Z95.810 Presence of automatic (implantable) cardiac defibrillator; Z98.62 Peripheral vascular angioplasty status; Z95.5 Presence of coronary angioplasty implant and graft; Z87.891 Personal history of nicotine dependence; Z79.891 Long term (current) use of opiate analgesic; Z79.4 Long term (current) use of insulin; Z91.018 Allergy to other foods; Z79.82 Long term (current) use of aspirin; Z79.899 Other long term (current) drug therapy; Z68.32 Body mass index [BMI] 32.0-32.9, adult; Z79.02 Long term (current) use of antithrombotics/antiplatelets; Y99.8 Other external cause status; E11.21 Type 2 diabetes mellitus with diabetic nephropathy

== ENCOUNTER 2017-03-23 01:21 | Emergency (ER) | payer MEDICARE, MEDICAID ==
[~2017-03-23] VITALS: Ht 170.2 cm; Wt 88.0 kg
[~2017-03-23 01:21] MED LIST changes: +LEVO30TA PO; +LEVO50TA5 PO; +POTA10TA16 PO; +PROC20004 IM; +ROCA0.25 PO; +SPIR25TA2 PO
[2017-03-23] MEDS ORDERED: ASPIRIN 325 MG TAB PO ONE (02:00)
[2017-03-23 02:30] LABS: BASO % 0.5 % (0.0-1.0); EOS # 0.2 K/mm3 (0.0-0.50); EOS % 3.2 % (0.0-3.0); LARGE UNSTAINED CELL # 0.2 K/mm3 (0.0-0.4); LARGE UNSTAINED CELL % 2.7 % (0.0-4.0); LYMPH # 0.7 K/mm3 (1.5-4.5); LYMPH % 12.2 % (24.0-44.0); MEAN CORPUSCULAR HGB CONC 32.5 g/dl (32.0-36.5); MONO # 0.5 K/mm3 (0.0-0.8); MONO % 8.5 % (0.0-5.0); NEUTROPHILS # 4.1 K/mm3 (1.8-7.7); NEUTROPHILS % 72.8 % (36.0-66.0); PLATELET COUNT, AUTOMATED 218 k/mm3 (150-450); RED CELL DISTRIBUTION WIDTH 14.5 % (11.5-14.5); WHITE BLOOD COUNT 5.7 K/mm3 (4.0-10.0)
[2017-03-23 02:38] LABS: INR 1.06
[2017-03-23 02:54] LABS: CALCIUM LEVEL 8.9 MG/DL (8.8-10.2); CREATININE FOR GFR 2.08 MG/DL (0.70-1.30); GLOMERULAR FILTRATION RATE 33.7 (>42)
[2017-03-23] MEDS ORDERED: METAL LOCK LOOP XX ONE (05:16)
--- NOTE | 2017-03-23 07:44 | REP ---
Clinical: Chest pain . Comparison: 03/04/2017 . Technique: PA and lateral. Findings: The mediastinum and cardiac silhouette are normal. The lung ramos are clear and without acute consolidation, effusion, or pneumothorax. The skeletal structures are intact and normal. Impression: 1. No acute cardiopulmonary process. Signed by Erwin Rodriguez MD 03/23/2017 07:35 A
[2017-03-23] MEDS ORDERED: PROMETHAZINE INJ 25 MG/ML VIAL (J2550) IV ONE (08:30)
[2017-03-23 10:04] LABS: ALBUMIN 3.1 GM/DL (3.2-5.2); ALBUMIN/GLOBULIN RATIO 0.82 (1.00-1.93); BILIRUBIN,DIRECT 0.1 MG/DL (0.0-0.2); BILIRUBIN,TOTAL 0.3 MG/DL (0.2-1.0); TOTAL PROTEIN 6.9 GM/DL (6.4-8.2)
[2017-03-23 12:10] VITALS: BP 208/83
[2017-03-23] MEDS ORDERED: CARVedilol 6.25 MG TAB PO ONE (12:15)
[2017-03-23 12:59] VITALS: BP 203/85
--- NOTE | 2017-03-24 08:19 | ECGEPIP ---
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
--- NOTE | 2017-03-24 19:17 | ECGEPIP ---
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
--- NOTE | 2017-03-24 19:21 | ECGEPIP ---
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
[2017-05-09] MEDS ORDERED: ZOFR4TAB3 PO (21:52)
== END 2017-03-23 13:11 | disposition home or self-care (01) ==
LOC: M ED 01:21
DX: R07.9 Chest pain, unspecified (principal); I50.9 Heart failure, unspecified; N18.9 Chronic kidney disease, unspecified; K21.9 Gastro-esophageal reflux disease without esophagitis; E03.9 Hypothyroidism, unspecified; I25.10 Atherosclerotic heart disease of native coronary artery without angina pectoris; E11.9 Type 2 diabetes mellitus without complications; I12.9 Hypertensive chronic kidney disease with stage 1 through stage 4 chronic kidney disease, or unspecified chronic kidney disease; Z95.1 Presence of aortocoronary bypass graft; Z87.891 Personal history of nicotine dependence

== ENCOUNTER → 2017-04-15 | Outpatient (REF) | payer MEDICARE, MEDICAID ==
[~2017-04-15] MED LIST changes: +LISI-538 PO
== END ==
LOC: M LAB REF 12:24
PROVIDERS: ATTEND Podiatrist Foot & Ankle Surgery
DX: L89.622 Pressure ulcer of left heel, stage 2 (principal)

== ENCOUNTER 2017-04-26 16:33 | Emergency (ER) | payer MEDICARE, MEDICAID ==
[~2017-04-26] VITALS: Ht 170.2 cm; Wt 84.1 kg
[~2017-04-26 16:33] MED LIST changes: -LISI-538 PO
[2017-04-26] MEDS ORDERED: TORS20TA2 PO (16:56)
[2017-04-26] MEDS ORDERED: LISI-538 PO (16:56)
[2017-04-26] MEDS ORDERED: ONDANSETRON 4MG/2ML VIAL (J2405) IV ONE (17:30)
[2017-04-26 17:35] LABS: BASO # 0.1 10^3/uL (0.0-0.2); BASO % 0.7 % (0.0-1.0); EOS # 0.2 10^3/uL (0.0-0.50); EOS % 1.6 % (0.0-3.0); IMMATURE GRANULOCYTE % 0.5 % (0-0); LYMPH # 1.3 10^3/uL (1.5-4.5); LYMPH % 13.6 % (24.0-44.0); MEAN CORPUSCULAR HEMOGLOBIN 27.5 pg (27.0-33.0); MEAN CORPUSCULAR HGB CONC 32.5 g/dl (32.0-36.5); MEAN CORPUSCULAR VOLUME 84.7 fl (80.0-96.0); MONO # 0.8 10^3/uL (0.0-0.8); MONO % 7.9 % (0.0-5.0); NEUTROPHILS # 7.2 10^3/uL (1.8-7.7); NEUTROPHILS % 75.7 % (36.0-66.0); PLATELET COUNT, AUTOMATED 351 10^3/uL (150-450); RED CELL DISTRIBUTION WIDTH 13.4 % (11.5-14.5); WHITE BLOOD COUNT 9.5 10^3/uL (4.0-10.0)
[2017-04-26 17:58] LABS: ALBUMIN 3.1 GM/DL (3.2-5.2); ALKALINE PHOSPHATASE 188 U/L (45-117); ALT/SGPT 18 U/L (12-78); ANION GAP 6 MEQ/L (8-16); AST/SGOT 12 U/L (15-37); BILIRUBIN,DIRECT < 0.1 MG/DL (0.0-0.2); BILIRUBIN,TOTAL 0.2 MG/DL (0.2-1.0); BLOOD UREA NITROGEN 47 MG/DL (7-18); CARBON DIOXIDE LEVEL 33 MEQ/L (21-32); CHLORIDE LEVEL 95 MEQ/L (98-107); CREATININE FOR GFR 5.45 MG/DL (0.70-1.30); GLOMERULAR FILTRATION RATE 11.1 (>42); GLUCOSE, FASTING 227 MG/DL (83-110); SODIUM LEVEL 134 MEQ/L (136-145); TOTAL PROTEIN 8.3 GM/DL (6.4-8.2)
[2017-04-26] MEDS ORDERED: ZOFR4TAB3 PO (18:59)
[2017-04-26 19:33] VITALS: BP 146/64
--- NOTE | 2017-04-27 11:30 | REP ---
Abdomen series: Four views. History: Abdominal pain. Comparison study March 23, 2017. Findings: Upright chest radiograph demonstrates a right internal jugular [id number]-[id number]-Ydpk catheter and a left transvenous pacemaker. Median sternotomy wires are seen. Heart is not enlarged. The lungs are well inflated and clear. There is no evidence of infiltrate or free subdiaphragmatic air. Supine and erect views of the abdomen show surgical clips in the inguinal soft tissues bilaterally. There is a arterial stent in the right external iliac artery. Vascular calcification is noted in the left upper quadrant. The bowel gas pattern is normal. There is a 2.7 cm calcification in the right mid abdomen. This may be artifactual as March 02, 2017 CT study did not show a similar density. No urinary tract calculus is seen. No significant air fluid level is noted. No evidence of free air. Impression: Unremarkable bowel gas pattern. Right midabdominal calcific density likely artifactual. Signed by Edgard Marion MD 04/27/2017 09:37 A
--- NOTE | 2017-04-28 07:54 | ECGEPIP ---
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
[2017-05-09] MEDS ORDERED: ZOFR4TAB3 PO (21:52)
== END 2017-04-26 19:35 | disposition home or self-care (01) ==
LOC: M ED 16:33
DX: E11.43 Type 2 diabetes mellitus with diabetic autonomic (poly)neuropathy (principal); N18.6 End stage renal disease; I11.0 Hypertensive heart disease with heart failure; I50.9 Heart failure, unspecified; Z99.2 Dependence on renal dialysis; Z79.899 Other long term (current) drug therapy; Z79.82 Long term (current) use of aspirin; Z79.4 Long term (current) use of insulin; Z91.018 Allergy to other foods
CPT/HCPCS: 74022; 80048; 80076; 82550; 82553; 83605; 83690; 84484; 85025; 93005; 93041; 96374; 99284; J2405

== ENCOUNTER → 2017-06-10 | Outpatient (REF) ==
[~2017-06-10] MED LIST changes: +LISI-538 PO
[2017-06-10 12:28] LABS: MEAN CORPUSCULAR HEMOGLOBIN 29.5 pg (27.0-33.0); MEAN CORPUSCULAR HGB CONC 31.4 g/dl (32.0-36.5); MEAN CORPUSCULAR VOLUME 93.8 fl (80.0-96.0); PLATELET COUNT, AUTOMATED 260 10^3/uL (150-450); RED CELL DISTRIBUTION WIDTH 16.4 % (11.5-14.5); WHITE BLOOD COUNT 15.9 10^3/uL (4.0-10.0)
[2017-06-10 13:01] LABS: CALCIUM LEVEL 9.1 MG/DL (8.8-10.2); CREATININE FOR GFR 3.92 MG/DL (0.70-1.30); GLOMERULAR FILTRATION RATE 16.2 (>42); POTASSIUM SERUM 4.9 MEQ/L (3.5-5.1)
== END ==
PROVIDERS: ATTEND Internal Medicine
DX: E11.9 Type 2 diabetes mellitus without complications (principal)

== ENCOUNTER → 2017-06-11 | Outpatient (REF) ==
[2017-06-11 09:51] LABS: MEAN CORPUSCULAR HEMOGLOBIN 28.9 pg (27.0-33.0); MEAN CORPUSCULAR VOLUME 93.4 fl (80.0-96.0); PLATELET COUNT, AUTOMATED 274 10^3/uL (150-450); RED CELL DISTRIBUTION WIDTH 16.1 % (11.5-14.5); WHITE BLOOD COUNT 13.7 10^3/uL (4.0-10.0)
[2017-06-13 08:13] LABS: ERYTHROCYTE SEDIMENTATION RATE 71 mm/hr (0-20)
== END ==
PROVIDERS: ATTEND Internal Medicine
DX: M86.9 Osteomyelitis, unspecified (principal)

== ENCOUNTER → 2017-06-17 | Outpatient (REF) | payer MEDICARE, MEDICAID ==
[~2017-06-17] MED LIST changes: +ACET1TAB17 PO; +ACET650S3 PR; +AMBI5TAB PO; +BISA10SU4 PR; +ENEMENE16 PR; +FERR325T3 PO; +LOPE2CAP PO; +MOM30SS PO; +RENV2TAB PO; +ZOFR20TA PO
--- NOTE | 2017-06-17 09:55 | REP ---
LEFT KNEE, FOUR VIEWS: HISTORY: None provided. The patient is status post below the knee amputation. There is no acute fracture or dislocation. There is narrowing of the medial knee joint space. The patient is status post femoral artery stenting. Multiple surgical clips are present. IMPRESSION: 1. The patient is status post below the knee amputation 2. Degenerative change as described above. Signed by Bertrand Miner MD 06/17/2017 10:11 A
== END ==
PROVIDERS: ATTEND Internal Medicine
DX: Z89.512 Acquired absence of left leg below knee (principal)

== ENCOUNTER → 2017-06-17 | Outpatient (REF) ==
[~2017-06-17] MED LIST changes: -ACET1TAB17 PO; -ACET650S3 PR; -AMBI5TAB PO; -BISA10SU4 PR; -ENEMENE16 PR; -FERR325T3 PO; -LOPE2CAP PO; -MOM30SS PO; -RENV2TAB PO; -ZOFR20TA PO
[2017-06-17 11:19] LABS: MEAN CORPUSCULAR HEMOGLOBIN 29.1 pg (27.0-33.0); MEAN CORPUSCULAR HGB CONC 31.1 g/dl (32.0-36.5); MEAN CORPUSCULAR VOLUME 93.6 fl (80.0-96.0); PLATELET COUNT, AUTOMATED 258 10^3/uL (150-450); RED CELL DISTRIBUTION WIDTH 16.4 % (11.5-14.5); WHITE BLOOD COUNT 10.1 10^3/uL (4.0-10.0)
[2017-06-17 11:47] LABS: CALCIUM LEVEL 8.5 MG/DL (8.8-10.2); CREATININE FOR GFR 2.52 MG/DL (0.70-1.30)
== END ==
PROVIDERS: ATTEND Internal Medicine
DX: M86.9 Osteomyelitis, unspecified (principal)

== ENCOUNTER → 2017-06-25 | Outpatient (REF) | payer MEDICARE, MEDICAID ==
[~2017-06-25] MED LIST changes: +ACET1TAB17 PO; +ACET650S3 PR; +AMBI5TAB PO; +BISA10SU4 PR; +ENEMENE16 PR; +FERR325T3 PO; +LOPE2CAP PO; +MOM30SS PO; +RENV2TAB PO; +ZOFR20TA PO
[2017-06-25 10:44] LABS: MEAN CORPUSCULAR HEMOGLOBIN 29.5 pg (27.0-33.0); MEAN CORPUSCULAR HGB CONC 31.1 g/dl (32.0-36.5); MEAN CORPUSCULAR VOLUME 94.8 fl (80.0-96.0); PLATELET COUNT, AUTOMATED 220 10^3/uL (150-450); RED CELL DISTRIBUTION WIDTH 16.4 % (11.5-14.5); WHITE BLOOD COUNT 10.9 10^3/uL (4.0-10.0)
[2017-06-25 11:09] LABS: CALCIUM LEVEL 8.8 MG/DL (8.8-10.2); CREATININE FOR GFR 3.05 MG/DL (0.70-1.30); GLOMERULAR FILTRATION RATE 21.7 (>42); POTASSIUM SERUM 5.1 MEQ/L (3.5-5.1)
== END ==
PROVIDERS: ATTEND Internal Medicine
DX: M86.9 Osteomyelitis, unspecified (principal)

== ENCOUNTER → 2017-07-01 | Outpatient (REF) | payer MEDICARE, MEDICAID ==
[2017-07-01 10:31] LABS: MEAN CORPUSCULAR HEMOGLOBIN 29.8 pg (27.0-33.0); MEAN CORPUSCULAR VOLUME 96.4 fl (80.0-96.0); PLATELET COUNT, AUTOMATED 226 10^3/uL (150-450); RED CELL DISTRIBUTION WIDTH 15.9 % (11.5-14.5); WHITE BLOOD COUNT 7.5 10^3/uL (4.0-10.0)
[2017-07-01 10:44] LABS: CALCIUM LEVEL 8.7 MG/DL (8.8-10.2); CREATININE FOR GFR 2.54 MG/DL (0.70-1.30); GLOMERULAR FILTRATION RATE 26.7 (>42); POTASSIUM SERUM 4.8 MEQ/L (3.5-5.1)
== END ==
PROVIDERS: ATTEND Internal Medicine
DX: M85.80 Other specified disorders of bone density and structure, unspecified site (principal)

== ENCOUNTER → 2017-07-04 | Day surgery (SDC) | payer MEDICARE, MEDICAID ==
[~2017-07-04] VITALS: Ht 170.2 cm; Wt 81.6 kg
[~2017-07-04] MED LIST changes: +BUPIVACAINE HCL 0.5% 30 ML VIAL As Ordered ONE; +D5W/0.2% SODIUM CHLORIDE 1,000 ML IV SCH; +HEPARIN SOD (PORCINE) 5000 UNITS/ML VIAL As Ordered ONE; +LIDOCAINE 1% MDV 20ML VIAL SQ PRN; +LIDOCAINE 1% SDV INJ 30 ML VIAL As Ordered ONE; +METHYLENE BLUE 0.5% (5MG/ML) 10 ML AMP (PROVAYBLUE)(Q9968 PER 1MG) As Ordered ONE; +THROMBIN SOLN 20,000 UNITS KIT As Ordered ONE
[2017-07-04 06:54] VITALS: BP 183/73
== END | disposition home or self-care (01) ==
LOC: M SDC 06:01
PROVIDERS: ATTEND Surgery Vascular Surgery
DX: N17.9 Acute kidney failure, unspecified (principal); Z53.09 Procedure and treatment not carried out because of other contraindication

== ENCOUNTER → 2017-07-17 | Outpatient (REF) | payer MEDICARE, MEDICAID | DX: N18.9 Chronic kidney disease, unspecified (principal) ==

== ENCOUNTER 2017-07-23 13:27 | Day surgery (SDC) | payer MEDICARE, MEDICAID ==
[2017-07-23 14:17] LABS: BEDSIDE GLUCOSE 103 MG/DL (83-110)
[2017-07-23 14:23] LABS: POTASSIUM SERUM 4.4 MEQ/L (3.5-5.1)
[2017-07-23] MEDS: BUPIVACAINE HCL 0.5% 10 ML VIAL As Ordered (15:25)
[2017-07-23] MEDS: HEPARIN SOD (PORCINE) 5000 UNITS/ML VIAL As Ordered (15:28)
[2017-07-23] MEDS: LIDOCAINE 1% MDV 20ML VIAL As Ordered (15:36)
[2017-07-23] MEDS ORDERED: PROPOFOL 200 MG/20 ML VIAL As Ordered ×2 (16:12→16:44)
[2017-07-23] MEDS ORDERED: fentaNYL 100 MCG/2 ML INJECTION (J3010) As Ordered (16:12)
[2017-07-23] MEDS ORDERED: LIDOCAINE 2% INJ 100 MG/5 ML SDV (FOR ANES.) As Ordered (16:12)
[2017-07-23] MEDS ORDERED: MIDAZOLAM INJ 2 MG/2 ML VIAL (J2250) As Ordered (16:12)
[2017-07-23] MEDS ORDERED: PHENYLephrine HCL 500 MCG/5 ML (100MCG/ML) SYRINGE (J2370) As Ordered (16:42)
== END 2017-07-23 18:25 | disposition home or self-care (01) ==
LOC: M SDC 13:27
DX: N18.6 End stage renal disease (principal); I13.2 Hypertensive heart and chronic kidney disease with heart failure and with stage 5 chronic kidney disease, or end stage renal disease; I25.10 Atherosclerotic heart disease of native coronary artery without angina pectoris; E10.22 Type 1 diabetes mellitus with diabetic chronic kidney disease; E10.40 Type 1 diabetes mellitus with diabetic neuropathy, unspecified; I49.9 Cardiac arrhythmia, unspecified; I25.2 Old myocardial infarction; M12.9 Arthropathy, unspecified; Z91.018 Allergy to other foods; Z79.899 Other long term (current) drug therapy; Z79.4 Long term (current) use of insulin; Z79.82 Long term (current) use of aspirin; Z87.891 Personal history of nicotine dependence; Z95.5 Presence of coronary angioplasty implant and graft; Z95.810 Presence of automatic (implantable) cardiac defibrillator; Z72.0 Tobacco use; Z89.512 Acquired absence of left leg below knee; Z96.1 Presence of intraocular lens
CPT/HCPCS: 36818

== ENCOUNTER → 2017-07-23 | Outpatient (REF) | payer MEDICARE, MEDICAID | DX: N18.9 Chronic kidney disease, unspecified (principal) ==

== ENCOUNTER → 2017-07-29 | Outpatient (REF) | payer MEDICARE, MEDICAID | DX: N18.9 Chronic kidney disease, unspecified (principal) ==

== ENCOUNTER 2017-07-31 01:26 | Emergency (ER) | payer MEDICARE, MEDICAID | END 2017-07-31 03:48 | disposition home or self-care (01) | LOC: M ED 01:26 | DX: I99.9 Unspecified disorder of circulatory system (principal); I50.9 Heart failure, unspecified; E11.9 Type 2 diabetes mellitus without complications; N18.4 Chronic kidney disease, stage 4 (severe); G62.9 Polyneuropathy, unspecified; I25.2 Old myocardial infarction; F17.220 Nicotine dependence, chewing tobacco, uncomplicated; Z79.4 Long term (current) use of insulin; Z79.01 Long term (current) use of anticoagulants; Z79.82 Long term (current) use of aspirin; Z79.899 Other long term (current) drug therapy; Z91.018 Allergy to other foods; Z95.828 Presence of other vascular implants and grafts; Z99.2 Dependence on renal dialysis; Z95.5 Presence of coronary angioplasty implant and graft; Z98.890 Other specified postprocedural states | CPT/HCPCS: 99284 ==

== ENCOUNTER → 2017-08-21 | Outpatient (CLI) | payer MEDICARE, MEDICAID ==
[~2017-08-21] MED LIST changes: -ACET1TAB17 PO; -ACET650S3 PR; -ALBU83IN INH; -AMBI5TAB PO; -AMLO5TAB2 PO; -ASPI325T PO; -ASPI81CH PO; -ASPI81TA3 OR; -ASPI81TA85 PO; -ATEN25TA PO; -ATEN50TA2 OR; -BACT800T5 PO; -BISA10SU4 PR; -BUPIVACAINE HCL 0.5% 30 ML VIAL As Ordered ONE; -CARV12.5 PO; -CARV6.25 PO; -CLOP75TA2 PO; -COLE625TAB PO; -CRES40TA OR; -CRES40TA PO; -D5W/0.2% SODIUM CHLORIDE 1,000 ML IV SCH; -DEMA20TA6 PO; -ENEMENE16 PR; -FERR1TAB8 PO; -FERR325T3 PO; -GUAI5ELAC PO; -HEPARIN SOD (PORCINE) 5000 UNITS/ML VIAL As Ordered ONE; -HYDR-3911 PO; -INSUDET SC; -INSUH10VL SC; -INSUHUMDS SC; -INSULADS SC; -INSULANT SC; -INSULIN 70/30 INJ; -ISOS20TAB GT; -ISOS20TAB PO; +ISOVUE-300 61% 50ML VIAL (Q9967) As Ordered; -KEFL500C17 PO; -LASI40TA PO; -LEVO25TA5 PO; -LEVO30TA PO; -LEVO500T3 PO; -LEVO50TA5 PO; -LEVO750T13 PO; -LIDOCAINE 1% MDV 20ML VIAL SQ PRN; -LIDOCAINE 1% SDV INJ 30 ML VIAL As Ordered ONE; -LISI-538 PO; -LISI-542 PO; -LISI10TA4 PO; -LOPE2CAP PO; -LOSA50TA20 PO; -LYRI150C OR; -LYRI150C PO; -METHYLENE BLUE 0.5% (5MG/ML) 10 ML AMP (PROVAYBLUE)(Q9968 PER 1MG) As Ordered ONE; -METO10TA2 PO; -METO1TAB7 PO; +MIDAZOLAM INJ 2 MG/2 ML VIAL (J2250) As Ordered; -MOM30SS PO; -NITR4TASL SL; -NTG SL; -NYST-6 TOP; -OMEP40CA2 PO; -OXYC10TA12 OR; -OXYC1TAB23 PO; -OYST250T20 PO; -PERC2.5T PO; -PERCOCET FT; -PLAV1TAB2 PO; -PLAV75TA2 OR; -POTA10CA PO; -POTA10TA16 PO; -PRED10PA PO; -PRIL40CA PO; -PROC20004 IM; -REGL10TA6 PO; -RENV2TAB PO; -ROCA0.25 PO; -SILV50CR TOP; -SPIR25TA2 PO; -SPIR50TA2 PO; -SUCR1TA PO; -SUCR1TAB56 PO; -THROMBIN SOLN 20,000 UNITS KIT As Ordered ONE; -TORS100T PO; -TORS20TA2 PO; -VARE1TA OR; -ZOFR20TA PO; -ZOFR4TAB3 PO; +fentaNYL 100 MCG/2 ML INJECTION (J3010) As Ordered
== END | disposition home or self-care (01) ==
LOC: M IRPRO 08:40
DX: T82.858A Stenosis of other vascular prosthetic devices, implants and grafts, initial encounter (principal); N18.9 Chronic kidney disease, unspecified; Z95.0 Presence of cardiac pacemaker
CPT/HCPCS: 36902

== ENCOUNTER → 2017-08-26 | Outpatient (REF) | payer MEDICARE, MEDICAID ==
[2017-08-26 10:12] LABS: HEMOGLOBIN 11.8 g/dl (14.0-18.0); MEAN CORPUSCULAR HEMOGLOBIN 29.5 pg (27.0-33.0); MEAN CORPUSCULAR HGB CONC 32.8 g/dl (32.0-36.5); PLATELET COUNT, AUTOMATED 224 10^3/uL (150-450); RED CELL DISTRIBUTION WIDTH 12.5 % (11.5-14.5); WHITE BLOOD COUNT 7.6 10^3/uL (4.0-10.0)
[2017-08-26 10:21] LABS: ANION GAP 8 MEQ/L (8-16); BLOOD UREA NITROGEN 32 MG/DL (7-18); CALCIUM LEVEL 8.1 MG/DL (8.8-10.2); CARBON DIOXIDE LEVEL 31 MEQ/L (21-32); CHLORIDE LEVEL 99 MEQ/L (98-107); CREATININE FOR GFR 2.84 MG/DL (0.70-1.30); GLOMERULAR FILTRATION RATE 23.5 (>42); GLUCOSE, FASTING 174 MG/DL (70-100); POTASSIUM SERUM 4.3 MEQ/L (3.5-5.1); SODIUM LEVEL 138 MEQ/L (136-145)
== END ==
DX: D64.9 Anemia, unspecified (principal)
CPT/HCPCS: 80048

== ENCOUNTER → 2017-12-20 | Outpatient (CLI) | payer MEDICARE, MEDICAID | LOC: M LRY 18:33 | DX: R06.89 Other abnormalities of breathing (principal); I51.7 Cardiomegaly; Z95.0 Presence of cardiac pacemaker; Z95.1 Presence of aortocoronary bypass graft; Z95.828 Presence of other vascular implants and grafts | CPT/HCPCS: 71046; 82948 ==

== ENCOUNTER 2017-12-21 10:17 | Emergency (ER) | payer MEDICARE, MEDICAID ==
[2017-12-21 11:32] LABS: BASO % 0.5 % (0.0-1.0); EOS # 0.1 10^3/uL (0.0-0.50); EOS % 1.4 % (0.0-3.0); HEMATOCRIT 37.7 % (42.0-52.0); HEMOGLOBIN 12.5 g/dl (13.5-17.5); IMMATURE GRANULOCYTE % 0.5 % (0-3.0); LYMPH # 0.5 10^3/uL (1.5-4.5); MEAN CORPUSCULAR HEMOGLOBIN 29.3 pg (27.0-33.0); MEAN CORPUSCULAR HGB CONC 33.2 g/dl (32.0-36.5); MEAN CORPUSCULAR VOLUME 88.5 fl (80.0-96.0); MONO # 0.5 10^3/uL (0.0-0.8); MONO % 8.1 % (0.0-5.0); NEUTROPHILS # 5.1 10^3/uL (1.8-7.7); NEUTROPHILS % 81.5 % (36.0-66.0); PLATELET COUNT, AUTOMATED 173 10^3/uL (150-450); RED BLOOD COUNT 4.26 10^6/uL (4.30-6.10); RED CELL DISTRIBUTION WIDTH 12.5 % (11.5-14.5); WHITE BLOOD COUNT 6.3 10^3/uL (4.0-10.0)
[2017-12-21 11:42] LABS: ANION GAP 6 MEQ/L (8-16); BLOOD UREA NITROGEN 42 MG/DL (7-18); CALCIUM LEVEL 8.4 MG/DL (8.8-10.2); CARBON DIOXIDE LEVEL 29 MEQ/L (21-32); CHLORIDE LEVEL 98 MEQ/L (98-107); CPK CREATINE PHOSPHOKINASE 77 U/L (39-308); CREATININE FOR GFR 4.57 MG/DL (0.70-1.30); GLOMERULAR FILTRATION RATE 13.5 (>42); GLUCOSE, FASTING 241 MG/DL (70-100); SODIUM LEVEL 133 MEQ/L (136-145); TROPONIN I < 0.02 NG/ML (< 0.10)
[2017-12-21 11:56] LABS: MB/CK RELATIVE INDEX 3.89 (< OR =4); NT-PRO BNP 33128 PG/ML (<125)
[2017-12-21] MEDS ORDERED: ACETAMINOPHEN TAB 650MG DOSE (2X325MG) As Ordered (12:20)
[2017-12-21] MEDS: DOXYCYCLINE HYCLATE 100 MG TAB PO (12:26)
[2017-12-21] MEDS: ACETAMINOPHEN TAB 650MG DOSE (2X325MG) PO (12:29)
== END 2017-12-21 12:42 | disposition home or self-care (01) ==
LOC: M ED 10:17
DX: J18.9 Pneumonia, unspecified organism (principal); J90 Pleural effusion, not elsewhere classified; R91.1 Solitary pulmonary nodule; R94.31 Abnormal electrocardiogram [ECG] [EKG]; I50.9 Heart failure, unspecified; I25.10 Atherosclerotic heart disease of native coronary artery without angina pectoris; I73.9 Peripheral vascular disease, unspecified; I12.9 Hypertensive chronic kidney disease with stage 1 through stage 4 chronic kidney disease, or unspecified chronic kidney disease; E11.51 Type 2 diabetes mellitus with diabetic peripheral angiopathy without gangrene; N18.9 Chronic kidney disease, unspecified; Z99.2 Dependence on renal dialysis; Z86.31 Personal history of diabetic foot ulcer; Z86.2 Personal history of diseases of the blood and blood-forming organs and certain disorders involving the immune mechanism; Z87.891 Personal history of nicotine dependence; Z95.5 Presence of coronary angioplasty implant and graft; Z98.890 Other specified postprocedural states; Z95.828 Presence of other vascular implants and grafts; Z79.01 Long term (current) use of anticoagulants; Z79.82 Long term (current) use of aspirin; Z79.899 Other long term (current) drug therapy; Z79.4 Long term (current) use of insulin
CPT/HCPCS: 71250

== ENCOUNTER 2017-12-26 16:44 | Emergency (ER) | payer MEDICARE, MEDICAID ==
[2017-12-26] MEDS: ASPIRIN 81 MG CHEW TABLET PO (17:23)
[2017-12-26 17:39] LABS: BASO % 0.4 % (0.0-1.0); EOS # 0.2 10^3/uL (0.0-0.50); EOS % 1.4 % (0.0-3.0); HEMATOCRIT 29.6 % (42.0-52.0); HEMOGLOBIN 9.8 g/dl (13.5-17.5); IMMATURE GRANULOCYTE % 0.5 % (0-3.0); LYMPH % 8.5 % (24.0-44.0); MEAN CORPUSCULAR HEMOGLOBIN 29.3 pg (27.0-33.0); MEAN CORPUSCULAR HGB CONC 33.1 g/dl (32.0-36.5); MEAN CORPUSCULAR VOLUME 88.4 fl (80.0-96.0); MONO # 1.2 10^3/uL (0.0-0.8); MONO % 10.2 % (0.0-5.0); PLATELET COUNT, AUTOMATED 188 10^3/uL (150-450); RED BLOOD COUNT 3.35 10^6/uL (4.30-6.10); RED CELL DISTRIBUTION WIDTH 12.4 % (11.5-14.5); WHITE BLOOD COUNT 11.4 10^3/uL (4.0-10.0)
[2017-12-26 17:54] LABS: ALBUMIN 2.8 GM/DL (3.2-5.2); ALBUMIN/GLOBULIN RATIO 0.65 (1.00-1.93); ALKALINE PHOSPHATASE 167 U/L (45-117); ALT/SGPT 25 U/L (12-78); ANION GAP 9 MEQ/L (8-16); AST/SGOT 29 U/L (7-37); BILIRUBIN,DIRECT 0.2 MG/DL (0.0-0.2); BILIRUBIN,TOTAL 0.5 MG/DL (0.2-1.0); BLOOD UREA NITROGEN 43 MG/DL (7-18); CALCIUM LEVEL 7.9 MG/DL (8.8-10.2); CARBON DIOXIDE LEVEL 28 MEQ/L (21-32); CHLORIDE LEVEL 96 MEQ/L (98-107); CPK CREATINE PHOSPHOKINASE 405 U/L (39-308); CREATININE FOR GFR 4.97 MG/DL (0.70-1.30); GLOMERULAR FILTRATION RATE 12.3 (>42); GLUCOSE, FASTING 238 MG/DL (70-100); LIPASE 60 U/L (73-393); POTASSIUM SERUM 3.8 MEQ/L (3.5-5.1); SODIUM LEVEL 133 MEQ/L (136-145); TOTAL PROTEIN 7.1 GM/DL (6.4-8.2); TROPONIN I 0.56 NG/ML (< 0.10)
[2017-12-26] MEDS: NS 1,000 ML IV (18:06)
[2017-12-26 18:07] LABS: CK-MB VALUE MASS 2.9 NG/ML (<3.6); MB/CK RELATIVE INDEX 0.71 (< OR =4); NT-PRO BNP 74627 PG/ML (<125)
[2017-12-26] MEDS: ONDANSETRON 4MG/2ML VIAL (J2405) IV (18:07)
[2017-12-26 18:28] LABS: INR 1.21; PROTHROMBIN TIME 15.5 SECONDS (12.4-14.5)
[2017-12-26 18:29] LABS: PARTIAL THROMBOPLASTIN TIME 41.6 SECONDS (26.8-37.9)
[2017-12-26 20:22] LABS: CK-MB VALUE MASS 3.2 NG/ML (<3.6); CPK CREATINE PHOSPHOKINASE 417 U/L (39-308); MB/CK RELATIVE INDEX 0.76 (< OR =4); TROPONIN I 0.49 NG/ML (< 0.10)
== END 2017-12-26 22:44 | disposition home or self-care (01) ==
LOC: M ED 16:44
DX: I20.8 Other forms of angina pectoris (principal); I25.10 Atherosclerotic heart disease of native coronary artery without angina pectoris; I50.9 Heart failure, unspecified; I25.2 Old myocardial infarction; I10 Essential (primary) hypertension; N18.6 End stage renal disease; Z95.5 Presence of coronary angioplasty implant and graft; Z95.1 Presence of aortocoronary bypass graft; I51.7 Cardiomegaly; Z79.82 Long term (current) use of aspirin; Z79.4 Long term (current) use of insulin; Z79.899 Other long term (current) drug therapy; Z91.018 Allergy to other foods

== ENCOUNTER 2018-01-03 16:53 | Observation (INO) | payer MEDICARE, MEDICAID ==
[2018-01-03 17:54] LABS: BASO # 0.1 10^3/uL (0.0-0.2); BASO % 0.7 % (0.0-1.0); EOS # 0.2 10^3/uL (0.0-0.50); HEMATOCRIT 33.9 % (42.0-52.0); HEMOGLOBIN 10.8 g/dl (13.5-17.5); IMMATURE GRANULOCYTE % 0.9 % (0-3.0); LYMPH % 11.3 % (24.0-44.0); MEAN CORPUSCULAR HEMOGLOBIN 29.3 pg (27.0-33.0); MEAN CORPUSCULAR HGB CONC 31.9 g/dl (32.0-36.5); MEAN CORPUSCULAR VOLUME 92.1 fl (80.0-96.0); MONO # 0.8 10^3/uL (0.0-0.8); MONO % 9.3 % (0.0-5.0); NEUTROPHILS # 6.4 10^3/uL (1.8-7.7); NEUTROPHILS % 75.8 % (36.0-66.0); PLATELET COUNT, AUTOMATED 239 10^3/uL (150-450); RED BLOOD COUNT 3.68 10^6/uL (4.30-6.10); RED CELL DISTRIBUTION WIDTH 13.2 % (11.5-14.5); WHITE BLOOD COUNT 8.5 10^3/uL (4.0-10.0)
[2018-01-03 18:00] LABS: INR 1.03; PROTHROMBIN TIME 13.6 SECONDS (12.4-14.5)
[2018-01-03 18:16] LABS: ALBUMIN 2.8 GM/DL (3.2-5.2); ALBUMIN/GLOBULIN RATIO 0.57 (1.00-1.93); ALKALINE PHOSPHATASE 209 U/L (45-117); ALT/SGPT 25 U/L (12-78); ANION GAP 7 MEQ/L (8-16); AST/SGOT 29 U/L (7-37); BILIRUBIN,DIRECT < 0.1 MG/DL (0.0-0.2); BILIRUBIN,TOTAL 0.4 MG/DL (0.2-1.0); BLOOD UREA NITROGEN 30 MG/DL (7-18); CALCIUM LEVEL 8.4 MG/DL (8.8-10.2); CARBON DIOXIDE LEVEL 29 MEQ/L (21-32); CHLORIDE LEVEL 102 MEQ/L (98-107); CPK CREATINE PHOSPHOKINASE 87 U/L (39-308); CREATININE FOR GFR 3.65 MG/DL (0.70-1.30); GLOMERULAR FILTRATION RATE 17.6 (>42); GLUCOSE, FASTING 207 MG/DL (70-100); SODIUM LEVEL 138 MEQ/L (136-145); TOTAL PROTEIN 7.7 GM/DL (6.4-8.2); TROPONIN I < 0.02 NG/ML (< 0.10)
[2018-01-03 18:18] LABS: CK-MB VALUE MASS 4.5 NG/ML (<3.6); MB/CK RELATIVE INDEX 5.17 (< OR =4)
[2018-01-03 18:19] LABS: LACTIC ACID SEPSIS PROTOCOL 1.9 MMOL/L (0.4-2.0)
[2018-01-03 18:29] LABS: NT-PRO BNP 44067 PG/ML (<125)
[2018-01-03] MEDS: methylPREDNISolone INJ 125 MG/2 ML VIAL (J2930) IV ×2 (18:51)
[2018-01-03 19:02] LABS: ANION GAP 5 MEQ/L (8-16); BLOOD UREA NITROGEN 31 MG/DL (7-18); CALCIUM LEVEL 8.5 MG/DL (8.8-10.2); CARBON DIOXIDE LEVEL 31 MEQ/L (21-32); CHLORIDE LEVEL 101 MEQ/L (98-107); CREATININE FOR GFR 3.65 MG/DL (0.70-1.30); GLOMERULAR FILTRATION RATE 17.6 (>42); GLUCOSE, FASTING 236 MG/DL (70-100); SODIUM LEVEL 137 MEQ/L (136-145)
[2018-01-03 19:07] LABS: POTASSIUM SERUM 5.5 MEQ/L (3.5-5.1)
[2018-01-03] MEDS: IPRATROPIUM 0.5MG/ALBUTEROL 2.5MG INH SOL UD 3ML (DUONEB)(J7620) NEB ×2 (19:20)
[2018-01-03] MEDS: SOD POLYSTYRENE SULFONATE SUSP 15 GM/60 ML UD PO ×2 (19:45)
[2018-01-03] MEDS ORDERED: BISACODYL 5 MG TAB PO ×2 (19:45)
[2018-01-03] MEDS ORDERED: GLUCAGON FOR INJ 1 MG VIAL (J1610) SC ×2 (19:45)
[2018-01-03] MEDS ORDERED: DEXTROSE 50% 50 ML SYRINGE IV ×2 (19:45)
[2018-01-03] MEDS ORDERED: GLUCOSE 4 GM CHEW TABLET PO ×2 (19:45)
[2018-01-03] MEDS: FUROSEMIDE 40 MG TAB PO ×2 (20:00)
[2018-01-03] MEDS ORDERED: ACETAMINOPHEN 325 MG TAB PO ×2 (20:30)
[2018-01-03] MEDS ORDERED: LACTIC ACID 12% LOTION 225 GM BTL TOP ×2 (20:30)
[2018-01-03] MEDS: HumaLOG INSULIN (NovoLOG) PER UNIT SC ×2 (21:00)
[2018-01-03] MEDS: LEVEMIR (INSULIN DETEMIR) 1 UNITS/0.01ML SC ×2 (22:12)
[2018-01-03] MEDS: HEPARIN SOD (PORCINE) 5000 UNITS/ML VIAL SC ×2 (22:12)
[2018-01-03] MEDS: PREGABALIN 75 MG CAP(LYRICA) PO ×2 (22:12)
[2018-01-03] MEDS: TORSEMIDE 20 MG TAB PO ×2 (22:13)
[2018-01-03] MEDS: CARVedilol 6.25 MG TAB PO ×2 (22:13)
[2018-01-03] MEDS: LevoFLOXacin 500 MG TABLET PO ×2 (22:13)
[2018-01-03] MEDS: PERCOCET 5MG/325MG TAB PO ×2 (22:16)
[2018-01-04] MEDS: ACETAMINOPHEN TAB 650MG DOSE (2X325MG) PO ×2 (02:00)
[2018-01-04] MEDS: HEPARIN SOD (PORCINE) 5000 UNITS/ML VIAL SC ×2 (05:34)
[2018-01-04 07:08] LABS: BASO % 0.2 % (0.0-1.0); HEMATOCRIT 34.6 % (42.0-52.0); IMMATURE GRANULOCYTE % 0.7 % (0-3.0); LYMPH # 0.5 10^3/uL (1.5-4.5); LYMPH % 5.9 % (24.0-44.0); MEAN CORPUSCULAR HEMOGLOBIN 29.2 pg (27.0-33.0); MEAN CORPUSCULAR HGB CONC 31.8 g/dl (32.0-36.5); MEAN CORPUSCULAR VOLUME 91.8 fl (80.0-96.0); MONO # 0.3 10^3/uL (0.0-0.8); MONO % 2.8 % (0.0-5.0); NEUTROPHILS # 8.3 10^3/uL (1.8-7.7); NEUTROPHILS % 90.4 % (36.0-66.0); PLATELET COUNT, AUTOMATED 246 10^3/uL (150-450); RED BLOOD COUNT 3.77 10^6/uL (4.30-6.10); RED CELL DISTRIBUTION WIDTH 13.3 % (11.5-14.5); WHITE BLOOD COUNT 9.2 10^3/uL (4.0-10.0)
[2018-01-04 07:26] LABS: ANION GAP 8 MEQ/L (8-16); BLOOD UREA NITROGEN 40 MG/DL (7-18); CALCIUM LEVEL 8.2 MG/DL (8.8-10.2); CARBON DIOXIDE LEVEL 30 MEQ/L (21-32); CHLORIDE LEVEL 98 MEQ/L (98-107); CREATININE FOR GFR 4.07 MG/DL (0.70-1.30); GLOMERULAR FILTRATION RATE 15.5 (>42); GLUCOSE, FASTING 381 MG/DL (70-100); SODIUM LEVEL 136 MEQ/L (136-145)
[2018-01-04 07:28] LABS: POTASSIUM SERUM 5.3 MEQ/L (3.5-5.1)
[2018-01-04] MEDS: HumaLOG INSULIN (NovoLOG) PER UNIT SC ×4 (08:10→11:26)
[2018-01-04] MEDS: (RENVELA) SEVELAMER **CARBONate** 800 MG TAB PO ×4 (08:10→11:26)
[2018-01-04] MEDS: CARVedilol 6.25 MG TAB PO ×2 (08:11)
[2018-01-04] MEDS: amLODIPine 5 MG TAB PO ×2 (08:11)
[2018-01-04] MEDS: CLOPIDOGREL 75 MG TAB PO ×2 (08:11)
[2018-01-04] MEDS: LISINOPRIL 10 MG TAB PO ×2 (08:11)
[2018-01-04] MEDS: ASPIRIN 81 MG ENTERIC TAB PO ×2 (08:11)
[2018-01-04] MEDS: TORSEMIDE 20 MG TAB PO ×2 (08:11)
[2018-01-04] MEDS: PREGABALIN 75 MG CAP(LYRICA) PO ×2 (08:11)
[2018-01-04 11:13] LABS: BEDSIDE GLUCOSE 399 MG/DL (83-110)
[2018-01-05] MEDS ORDERED: LevoFLOXacin 250 MG TABLET PO ×2 (21:00)
== END 2018-01-04 13:20 | disposition home or self-care (01) ==
LOC: M ED 16:53 → M ED INP 19:40 → M MS5PR 20:45
DX: R53.83 Other fatigue (principal); R06.02 Shortness of breath; N18.6 End stage renal disease; I12.0 Hypertensive chronic kidney disease with stage 5 chronic kidney disease or end stage renal disease; I73.9 Peripheral vascular disease, unspecified; E11.21 Type 2 diabetes mellitus with diabetic nephropathy; I25.10 Atherosclerotic heart disease of native coronary artery without angina pectoris; I27.20 Pulmonary hypertension, unspecified; E03.9 Hypothyroidism, unspecified; Z79.4 Long term (current) use of insulin; Z79.899 Other long term (current) drug therapy; E87.5 Hyperkalemia; Z79.82 Long term (current) use of aspirin; J44.9 Chronic obstructive pulmonary disease, unspecified; Z98.61 Coronary angioplasty status; Z95.1 Presence of aortocoronary bypass graft; Z79.01 Long term (current) use of anticoagulants; Z95.810 Presence of automatic (implantable) cardiac defibrillator
CPT/HCPCS: J2930

== ENCOUNTER → 2018-01-20 | Outpatient (CLI) | payer MEDICARE, MEDICAID ==
[~2018-01-20] MED LIST changes: +ACETAMINOPHEN 325 MG TAB As Ordered; -ISOVUE-300 61% 50ML VIAL (Q9967) As Ordered; +LIDOCAINE 1% MDV 20ML VIAL As Ordered; -MIDAZOLAM INJ 2 MG/2 ML VIAL (J2250) As Ordered; -fentaNYL 100 MCG/2 ML INJECTION (J3010) As Ordered
[2018-01-20 14:24] LABS: ALBUMIN 3.8 GM/DL (3.2-5.2); ALBUMIN/GLOBULIN RATIO 1.03 (1.00-1.93); ALKALINE PHOSPHATASE 150 U/L (45-117); ALT/SGPT 17 U/L (12-78); ANION GAP 3 MEQ/L (8-16); AST/SGOT 16 U/L (7-37); BILIRUBIN,TOTAL 0.5 MG/DL (0.2-1.0); BLOOD UREA NITROGEN 21 MG/DL (7-18); CALCIUM LEVEL 8.4 MG/DL (8.8-10.2); CARBON DIOXIDE LEVEL 36 MEQ/L (21-32); CHLORIDE LEVEL 103 MEQ/L (98-107); CREATININE FOR GFR 3.15 MG/DL (0.70-1.30); GLOMERULAR FILTRATION RATE 20.8 (>42); GLUCOSE, FASTING 128 MG/DL (70-100); POTASSIUM SERUM 4.8 MEQ/L (3.5-5.1); SODIUM LEVEL 142 MEQ/L (136-145); TOTAL PROTEIN 7.5 GM/DL (6.4-8.2)
[2018-01-20 14:41] LABS: AMYLASE, BODY FLUID 27 U/L (NOT ESTABLISHED); LDH, BODY FLUID 134 U/L (NOT ESTABLISHED); SOURCE, BODY FLUID ALBUMIN PLEURAL; SOURCE, BODY FLUID AMYLASE PLEURAL; SOURCE, BODY FLUID GLUCOSE PLEURAL; SOURCE, BODY FLUID LDH PLEURAL; SOURCE, BODY FLUID TOT PROTEIN PLEURAL; TOTAL PROTEIN, BODY FLUID 2.8 G/DL (NOT ESTABLISHED)
== END ==
LOC: M RADPRO 12:33
DX: J90 Pleural effusion, not elsewhere classified (principal); Z95.5 Presence of coronary angioplasty implant and graft; Z86.79 Personal history of other diseases of the circulatory system; Z89.512 Acquired absence of left leg below knee; Z91.018 Allergy to other foods; Z79.82 Long term (current) use of aspirin; Z79.899 Other long term (current) drug therapy; Z79.02 Long term (current) use of antithrombotics/antiplatelets; Z79.4 Long term (current) use of insulin; Z79.891 Long term (current) use of opiate analgesic
CPT/HCPCS: 32555